=== PATIENT | male | born 1970 | race Caucasian/White ===

== ENCOUNTER 2018-02-22 12:50 | Inpatient (IN) | payer SELFPAY ==
[2018-02-22 12:50] VITALS: BP 184/96; PULSE 116; RESP 18; TEMP 37.7; O2SAT 99; BMI 41.5
[2018-02-22 13:57] LABS: Absolute Lymphocyte Count 1.03 X10^3/ul (0.83-4.51); Absolute Neutrophil Count 11.5 X10^3/uL (2.0-7.7); Basophil# 0.01 X10^3/uL; Basophil% 0.1 % (0-1); Eosinophil# 0.01 X10^3/uL; Eosinophils% 0.1 % (0-5); Hematocrit 50.7 % (40-54); Hemoglobin 16.9 g/dl (13.0-16.5); Lymphocyte # 1.03 X10^3/ul (4.0); Lymphocyte % 7.6 % (19-41); Mean Corp Hgb Conc 33.3 g/gl (32-36); Mean Corpuscular Hgb 27.1 pg (27.0-32.0); Mean Corpuscular Volume 81.3 fL (80-94); Mean Platelet Vol. 10.4 fl (6.2-12.0); Monocyte# 0.89 X10^3/uL; Monocyte% 6.6 % (0-10); Neutrophil # 11.54 X10^3/uL (2.7-7.7); Neutrophil % 85.2 % (47-70); Platelet Count 182 K/mm3 (150-450); RBC Distribution Width CV 13.5 % (11.6-14.6); Red Blood Count 6.24 M/mm3 (4.6-6.2); White Blood Count 13.5 K/mm3 (4.4-11.0)
[2018-02-22 14:02] LABS: POSITIVE COUNT NO; POSITIVE DIFFERENTIAL NO; POSITIVE MORPHOLOGY NO
[2018-02-22 14:06] LABS: Anion Gap 10 (5-15); BUN 11 mg/dL (7-18); Calcium,Total 9.5 mg/dL (8.5-10.1); Chloride 98 mmol/L (98-107); Creatinine, Serum 0.92 mg/dL (0.70-1.30); EST Glomerular Filtration Rate 93 mL/min (>60); Est Glom Filt Rate - Afr Amer 113 mL/min (>60); Estimated Creatinine Clearance 85.42 ml/min; Glucose 288 mg/dL (74-106); Potassium 4.3 mmol/L (3.5-5.1); Sodium Level 135 mmol/L (136-145)
[2018-02-22 14:10] LABS: Lactic Acid 1.7 mmol/L (0.4-2.0)
[2018-02-22] MEDS: 0.9% Normal Saline 1,000 ML 150 ML IV (14:17)
--- NOTE | 2018-02-22 15:12 | ED.VISSUMM ---
- ER Visit Summary Date of Service: 02/22/18 Chief Complaint: [Left leg redness and swelling] History of Present Illness: The patient is a 47 M [presents the emergency department complaint of redness and swelling to his left leg since yesterday. Patient developed a fever. Patient complains of pain up and was groin at times and behind his left knee. Patient has had history of cellulitis that required admission in the past. Patient has a history of coronary artery disease, CHF, diabetes, hypertension, and high cholesterol.] Physical Examination: [HEENT-PERRLA, EOMI. Cranial nerves II through XII grossly intact. TMs clear. Mucous membranes moist. No adenopathy. Cardiovascular-regular rate and rhythm without murmur or ectopy Lungs-clear to auscultation, chest wall stable without crepitus or subcu emphysema Abdomen-normoactive bowel sounds, soft, nontender, no rebound or rigidity, no peritoneal signs. Extremities-intact ?4, normal range of motion, normal pulses. Left leg-patient does have anterior left vang erythema consistent with cellulitis. Extremities warm to the touch. Negative Homans sign. No ropes or cords palpated. Neurovascular intact. Test Results: [CBC with differential obtained showed a white count of 13.5, heme globin 17, hematocrit 51, platelets 182. Chemistries unremarkable. Lactate was 1.7. Glucose was 288. Venous duplex of the left lower extremity was negative for DVT.] Emergency Department Course and Treatment: [She was treated with Unasyn IV.] Treatment Plan: [Admit for IV antibiotics] Disposition: [Admit] Impression: Cellulitis left leg [] This note was generated with IFTTT dictation software. It may contain incorrect words, spelling, and punctuation that were not noted in review of the chart prior to signing ED Disposition - Plan for ED Patient: Chief Complaint: Lower Extremity Injury Referrals: Racheal Dodson [Primary Care Provider] -
[2018-02-22 16:15] VITALS: BMI 41.6
--- NOTE | 2018-02-22 16:21 | PCM.HP.STD ---
<Radha Rasmussen - Last Filed: 02/22/18 16:39> Problem List (1) Type 2 diabetes mellitus Status: Chronic (2) Hypertension Status: Chronic (3) Hyperlipidemia Status: Chronic History of Present Illness Date of Admission: 02/22/18 Chief Complaint: Left lower extremity cellulitis The patient is a 47 year old M who presents to emergency room due to left lower extremity redness, warmth and pain. He states he has had cellulitis in the same location approximately 2 years ago. He states his initial symptoms began approximately a week ago. He notes increase in redness. He has not sought medical attention by primary care physician or urgent care. Was not previously on outpatient oral antibiotics. Denies injury to left lower extremity. Complains of fever, chills. Complains of nausea, no emesis. Area of redness noted left vang area. No open wound or abscess noted. Duplex ultrasound for DVT negative. 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 Patient has a history of noncompliance. He reports he takes his home medications as needed. Pharmacy was called by ER staff to confirm patient's home medications. Pharmacy notes patient has not filled his medications in over a year. Past Medical History Past Medical History (Chronic Problems): Chronic Problems Type 2 diabetes mellitus (Chronic) Hypertension (Chronic) Hyperlipidemia (Chronic) Allergies No Known Allergies Allergy (Verified 02/22/18 12:51) Home Medications: Ambulatory Orders Medication Instructions Recorded Furosemide [Lasix] 20 mg PO DAILY 02/22/18 Lisinopril [Zestril] 10 mg PO DAILY 02/22/18 Metformin HCl 02/22/18 Surgical History: - - Hernia repair Psychiatric History: No pertinent psych hx Smoking Status: Former smoker Alcohol: None Drugs: None - *Family History Maternal History Items: Diabetes, Heart Disease, Stroke Paternal History Items: Diabetes, Heart Disease, Stroke Review of Systems Constitutional: Reports: Chills, Fever, Malaise. Denies: Weight Change HEENT: Denies: Head Aches, Sinus Congestion, Sinus Drainage Cardiovascular: Reports: Edema - Left lower extremity. Denies: Chest Pain, Palpitations Respiratory: Denies: Cough, Shortness of breath at rest, Sputum production Gastrointestinal: Denies: Abdominal Pain, Nausea, Vomiting Genitourinary: Denies: Dysuria Musculoskeletal: Reports: Leg Pain - Left. Denies: Joint Pain, Joint Tenderness Skin: Reports: - - Left lower extremity mid vang erythema and warmth. Neurological: Denies: Numbness, Tingling, Focal weakness Psychiatric: Denies: Anxiety, Depression, Homicidal Ideations, Suicidal Ideations Hematologic/ Lymphatic: Denies: Easy Bruising, Easy Bleeding VTE Information - Inpt Only VTE Present on Admission: No VTE Mechan Device Prophylaxis: None VTE Pharm Prophylaxis ordered?: Yes - Physical Exam General: Alert, Oriented x3, Cooperative, No apparent distress HEENT: Atraumatic, PERRLA, EOMI, Normocephalic Neck: Supple, No JVD, Negative Carotid Bruits Lungs: Clear to auscultation, Normal air movement Cardiovascular: Regular Rhythm, Normal S1, Normal S2, No murmurs, Tachycardic Abdomen: Bowel Sounds Present, Soft, Non Tender, Non-Distended, Obese Extremities: No clubbing, No cyanosis, No edema, Capillary Refill Less than 3 Seconds Skin: - - Moderate sized area of erythema left mid vang. No open wounds or abscess. Musculoskeletal: No Tenderness to Palpation of Joints or Extremities Neurological: Cranial nerves II-XII grossly intact, Neuro grossly intact Psych/Mental Status: Normal Affect, Appropriate Vital Signs Temp Pulse Resp BP Pulse Ox 100 F H 116 H 18 184/96 H 99 02/22/18 12:50 02/22/18 12:50 02/22/18 12:50 02/22/18 12:50 02/22/18 12:50 Weight: 250 lb 3.594 oz Body Mass Index (BMI) 41.6 Assessment/Plan 1. Left lower extremity cellulitis-started on IV Unasyn in ER, continue. Duplex ultrasound left lower extremity negative for DVT. Tylenol PRN for fever. PRN pain regimen. 2. Hypertension-systolic blood pressure greater than 180 on admission. Patient does not take prescribed home regimen. Continue lisinopril regimen. As needed hydralazine. 3. Type diabetes mellitus-previously on metformin regimen which patient has not been taking. Check hemoglobin A1c. Accu-Cheks before meals at bedtime with sliding scale insulin. 4. Hyperlipidemia-not on statin. Check FLP in the morning. 5. History of CVA-residual subjective left-sided weakness. Left peripheral vision loss. Not on aspirin or statin. 6. Chronic systolic CHF-echo in 2012 showed an EF of 40%, mild to moderate global hypokinesis of the left ventricle, severe left ventricular hypertrophy. Patient states he takes his home Lasix regimen as needed. Continue home lisinopril regimen. 7. CAD- Patient reports he is followed with Dr. iRchey in the past. No office visits in our records. Not on aspirin or statin. Check FLP as noted above. 8. Obesity-encourage diet lifestyle modifications. Nutrition consult. DVT prophylaxis-Lovenox subcu. This patient was seen by JAGUAR Fish under the supervision of Dr. Hdez. <Mikael Hdez - Last Filed: 02/22/18 17:04> History of Present Illness The patient is a 47 year old M [] Past Medical History Allergies No Known Allergies Allergy (Verified 02/22/18 12:51) - Physical Exam Vital Signs Temp Pulse Resp BP Pulse Ox 98.4 F 104 H 18 163/101 H 94 02/22/18 16:26 02/22/18 16:26 02/22/18 16:26 02/22/18 16:26 02/22/18 16:26 Oxygen Delivery Method Room Air Weight: 250 lb 3.594 oz Body Mass Index (BMI) 41.6 POC Glucose 02/22/18 16:48 POC Glucose 246 H Assessment/Plan Addendum: Dr. Hdez I personally examined the patient and reviewed the chart. I agree with the above. Kannan Hurst is a 47-year-old male with past medical history significant for hypertension, type 2 diabetes, hyperlipidemia, chronic systolic CHF. Presents with a 1 day history of left lower extremity redness. He has had cellulitis issues in the past. General: Alert, Oriented x3, Cooperative, No apparent distress HEENT: Atraumatic, EOMI, Normocephalic Oral: Moist Mucosa Neck: Supple, No JVD Lungs: Clear to auscultation, Normal air movement, No rhonchi, No wheeze, No rales Cardiovascular: Regular rate, Regular Rhythm, Normal S1, Normal S2, No murmurs Abdomen: Soft, Non Tender, Non-Distended, No Hepato-splenomegaly Extremities: No edema, Capillary Refill Less than 3 Seconds Skin: area of redness on erythema on his left anterior vang Psych/Mental Status: Normal Affect, Appropriate 1. Cellutitis - US in the Er was negative for DVT - Will continue with unasyn IV and possibly transition to augmentin if improvement - Given his h/o CHF will do gentle hydration and monitor his fluid status 2. DM2 - On metformin at home - SSI here 3. HTN/HLD/chronic systolic CHF - If no improvement in his HTN would start on corge BID for his HTN and CHF - Given his systolic CHF, and DM would benefit from a statin if his lipids are abnormal - when his pharmacy was called to obtain an updated med list, they stated he had not taken any medications for a year. - Will clarify this with the patient Code Visit Inpatient E&M: 08866 Init Hosp L3
[2018-02-22 16:26] VITALS: BP 163/101; PULSE 104; RESP 18; TEMP 36.9; O2SAT 94
[2018-02-22 16:51] LABS: Bedside Glucose 246 mg/dL (70-110)
[2018-02-22] MEDS: 0.9% Normal Saline 1,000 ML 100 ML IV (17:09)
[2018-02-22] MEDS: Insulin Lispro 100 UNIT/ML INSULN.PEN SQ ×2 (17:09→23:18)
[2018-02-22] MEDS: Lisinopril 10 MG Tablet PO (17:09)
[2018-02-22] MEDS: Acetaminophen 500 MG Tablet PO ×2 (17:09→23:18)
[2018-02-22 17:16] LABS: Hemoglobin A1c 10.8 % (4.2-6.3)
--- NOTE | 2018-02-22 17:22 | NURSING ---
female at bedside, states she is pt spouse. inquired as to if she had a med list or pt medication bottles from home to verify medications- she states she is unable to provide any insight as to what medications he may be taking.
--- NOTE | 2018-02-22 18:59 | NURSING ---
CONTINUE TO AWAIT LABATOLOL
[2018-02-22 19:50] VITALS: O2SAT 93
[2018-02-22 22:30] VITALS: BP 161/100; PULSE 99; RESP 16; TEMP 38.4; O2SAT 95
[2018-02-22 23:31] LABS: Bedside Glucose 276 mg/dL (70-110)
[2018-02-23] VITALS (7 sets, daily range): BP systolic 126–161; BP diastolic 75–97; PULSE 78–98; RESP 16–18; TEMP 36.7–37.4; O2SAT 94–97
[2018-02-23] MEDS: 0.9% Normal Saline 1,000 ML 100 ML IV (05:20)
[2018-02-23 06:14] LABS: Absolute Lymphocyte Count 1.34 X10^3/ul (0.83-4.51); Absolute Neutrophil Count 7.8 X10^3/uL (2.0-7.7); Basophil# 0.02 X10^3/uL; Basophil% 0.2 % (0-1); Hematocrit 44.9 % (40-54); Hemoglobin 14.8 g/dl (13.0-16.5); Lymphocyte # 1.34 X10^3/ul (4.0); Lymphocyte % 13.2 % (19-41); Mean Corpuscular Hgb 27.6 pg (27.0-32.0); Mean Corpuscular Volume 83.6 fL (80-94); Mean Platelet Vol. 9.8 fl (6.2-12.0); Monocyte# 0.99 X10^3/uL; Monocyte% 9.7 % (0-10); Neutrophil # 7.78 X10^3/uL (2.7-7.7); Neutrophil % 76.4 % (47-70); Platelet Count 132 K/mm3 (150-450); RBC Distribution Width CV 13.7 % (11.6-14.6); RBC Distribution Width SD 41.8 fl (35.1-43.9); Red Blood Count 5.37 M/mm3 (4.6-6.2); White Blood Count 10.2 K/mm3 (4.4-11.0)
[2018-02-23 06:16] LABS: POSITIVE COUNT NO; POSITIVE DIFFERENTIAL NO; POSITIVE MORPHOLOGY NO
[2018-02-23 06:33] LABS: Anion Gap 9 (5-15); BUN 9 mg/dL (7-18); BUN/Creat Ratio 11.6 RATIO (10-20); Calcium,Total 8.3 mg/dL (8.5-10.1); Chloride 102 mmol/L (98-107); Cholesterol 188 mg/dL (200); Creatinine, Serum 0.78 mg/dL (0.70-1.30); EST Glomerular Filtration Rate 114 mL/min (>60); Est Glom Filt Rate - Afr Amer 137 mL/min (>60); Estimated Creatinine Clearance 100.75 ml/min; Glucose 216 mg/dL (74-106); High Density Lipoprotein 33 mg/dL; Sodium Level 136 mmol/L (136-145); Triglycerides 220 mg/dL; Very Low Density Lipoprotein 44 mg/dL (5-40)
[2018-02-23] MEDS: Insulin Lispro 100 UNIT/ML INSULN.PEN SQ ×4 (06:56→22:34)
[2018-02-23 07:10] LABS: Bedside Glucose 252 mg/dL (70-110)
[2018-02-23] MEDS: Enoxaparin 40 MG/0.4 ML Syringe SC (09:40)
[2018-02-23] MEDS: Lisinopril 10 MG Tablet PO (09:40)
--- NOTE | 2018-02-23 10:05 | PCM.PN.HOSP ---
Patient Problems: Active and Suspected Problems Cellulitis (Acute) Subjective: Increasing erythema of his left lower extremity and extending beyond the lines of demarcation. Stated that he had a history of cellulitis about 2 years ago in the same region. Patient is concerned about his blood sugars be in the 270s but states that he gave up on his diabetes about a year ago and has not checked it nor taken any medications during that time. He expresses interest in resuming medications but does not have insurance. Vitals/I&O's: Vital Signs Temp Pulse Resp BP Pulse Ox 36.7 C 93 18 145/89 H 96 02/23/18 09:30 02/23/18 09:30 02/23/18 09:30 02/23/18 09:30 02/23/18 09:30 Oxygen Delivery Method Room Air Weight: 113.5 kg Body Mass Index (BMI) 41.6 Intake and Output for Last 24 Hours 02/21/18 02/22/18 02/23/18 23:59 23:59 23:59 Intake Total 684 / 684 909 / 909 Balance 684 / 684 909 / 909 General: Alert, No apparent distress HEENT: Atraumatic, Normocephalic Extremities: No edema, No Calf Tenderness Skin: - - Macular erythema of the anterior left vang that has extended beyond the multiple lines of demarcation. Patient also does have a patch of erythema on the medial aspect of his knee that was not marked out previously. Musculoskeletal: No Tenderness to Palpation of Joints or Extremities, No Muscle Wasting Neurological: Muscle tone normal, Coordination normal Psych/Mental Status: Normal Affect, Appropriate Laboratory Results 02/22/18 16:48: POC Glucose 246 H 02/22/18 23:11: POC Glucose 276 H 02/23/18 06:00: WBC 10.2, RBC 5.37, Hgb 14.8, Hct 44.9, MCV 83.6, MCH 27.6, MCHC 33.0, RDW 13.7, RDW Differential 41.8, Plt Count 132 L, MPV 9.8, Immature Gran % (Auto) 0.500, Neut % (Auto) 76.4 H, Lymph % (Auto) 13.2 L, Coleman % (Auto) 9.7, Eos % (Auto) 0.0, Baso % (Auto) 0.2, Absolute Neuts (auto) 7.8 H, Absolute Lymphs (auto) 1.34, Total Counted Not Reportable 02/23/18 06:00: Sodium 136, Potassium 4.0, Chloride 102, Carbon Dioxide 25.0, Anion Gap 9, BUN 9, Creatinine 0.78, Estim Creat Clear Calc 100.75, Est GFR (MDRD) Af Amer 137, Est GFR (MDRD) Non-Af 114, BUN/Creatinine Ratio 11.6, Glucose 216 H, Calcium 8.3 L, Triglycerides 220 H, Cholesterol 188, LDL Cholesterol 111, VLDL Cholesterol 44 H, HDL Cholesterol 33 L 02/23/18 06:55: POC Glucose 252 H Current Medications Acetaminophen (Tylenol) 500 mg PO Q4H PRN PRN PRN Reason: FEVER Last Admin: 02/22/18 23:18 Dose: 500 mg Dextrose (D50w Syringe) 0 gm IV X1 PRN; Protocol PRN Reason: Hypoglycemia Enoxaparin Sodium (Lovenox) 40 mg SC DAILY@1000 KATHY Last Admin: 02/23/18 09:40 Dose: 40 mg Glucagon () 1 mg IM .X1 PRN PRN Reason: Hypoglycemia Sodium Chloride () 1,000 mls @ 100 mls/hr IV .Q10H [facility] Last Admin: 02/23/18 05:20 Dose: 100 mls/hr Ampicillin Sodium/Sulbactam (Sodium 3 gm/ Sodium Chloride) 112 mls @ 150 mls/hr IV TID [facility] Last Admin: 02/23/18 06:56 Dose: 150 mls/hr Sodium Chloride () 250 mls @ 15 mls/hr IV .[id number] PRN PRN Reason: SALINE FLUSH Insulin Human Lispro (Humalog Kwikpen (Bkc)) 0 unit SQ ACHS KATHY PRN Reason: Protocol Last Admin: 02/23/18 06:56 Dose: 6 units Labetalol HCl (Trandate) 10 mg IV Q4H PRN PRN PRN Reason: BLOOD PRESSURE Last Admin: 02/22/18 23:23 Dose: 10 mg Lisinopril (Zestril) 10 mg PO DAILY [facility] Last Admin: 02/23/18 09:40 Dose: 10 mg Magnesium Hydroxide (Milk Of Magnesia) 30 ml PO DAILY PRN PRN PRN Reason: Constipation Sodium Chloride () 5 - 30 ml IV UD PRN PRN Reason: SALINE FLUSH Medical Necessity - Tobacco Use Smoking Status: Former smoker Assessment/Plan All Active Problems Cellulitis (Acute) 1. Left lower extremity cellulitis Extended beyond the lines of demarcation which is suggesting to me that this is a failure of the Unasyn and will start patient on vancomycin. The concern is for an MRSA type of cellulitis. Plan is to monitor patient overnight and if he continues to do well then would anticipate patient being able to be discharged on Bactrim. 2. Diabetes mellitus type 2 Will start patient on Metformin 500 mg twice daily Told the patient that he would probably likely need to be on insulin but given his lack of insurance at this time that that may not be a viable option. So patient will be on metformin will do sliding scale here. Advised patient about diet and avoiding ready-made foods and change of lifestyle overall. We will have the patient discussed with nutrition about further dietary advice. But informed patient that his blood sugars may be more elevated in light infection but my suspicion is that they have been chronically elevated for some time. 3. Hypertension lisinopril 10 mg daily 4. DVT prophylaxis with Lovenox Greater than 35 minutes of which greater than 50% of time was discussed the patient but his cellulitis, diabetes and diet. Code Visit Inpatient E&M: 33769 Subs Hosp L3
--- NOTE | 2018-02-23 10:56 | CASEMGMT ---
Social Work Note Pt is listed as self-pay. SW placed a call to [facility] to determine if [facility] will see pt for self-pay status. Jazmín Fajardo ORDNANCE ENGINEERING TECHNICIAN, [employer] SUPERVISOR
--- NOTE | 2018-02-23 11:14 | PCM.RX.CS ---
Consult Pharmacy has been consulted to manage selected antiobiotic: Vancomycin Type of Consult: New start Suspected Infection: Skin/Soft tissue Labs: Sodium 136 mmol/L (136-145) 02/23/18 06:00 Potassium 4.0 mmol/L (3.5-5.1) 02/23/18 06:00 Chloride 102 mmol/L (98-107) 02/23/18 06:00 Carbon Dioxide 25.0 mmol/L (21.0-32.0) 02/23/18 06:00 Anion Gap 9 (5-15) 02/23/18 06:00 BUN 9 mg/dL (7-18) 02/23/18 06:00 Creatinine 0.78 mg/dL (0.70-1.30) 02/23/18 06:00 Est GFR (MDRD) Af Amer 137 mL/min (>60) 02/23/18 06:00 Est GFR (MDRD) Non-Af 114 mL/min (>60) 02/23/18 06:00 BUN/Creatinine Ratio 11.6 RATIO (10-20) 02/23/18 06:00 Glucose 216 mg/dL (74-106) H 02/23/18 06:00 Weight used for dosin kg Estimated Creatinine Clearance: 98 ml/min Goal Trough: 15-20 mcg/mL Pharmacy Plan for Drug Dosing: Initial dose 1750mg IV x1, continue with 1250mg IV q8h per protocol. Trough prior to 4th dose. Pharmacy Service will continue to monitor and adjust dosing as required. Follow-Up Labs: Trough Vancomycin - 02/24 @ 1330
--- NOTE | 2018-02-23 11:20 | CASEMGMT ---
RN CEE Face to Face with patient for initial transition planning/care coordination assessment. RN CM introduced self and role at [facility]. Patient sitting in chair, alert and oriented. Patient willing to participate in assessment and is able to answer all questions appropriately. Care providers, pharmacy, and demographics verified. Patient lives with family in 1 story home. Patient denies need for DME at this time. Patient wishes to discharge home, denies need for home health at this time. Patient states he has no further needs or concerns at this time. CM to follow for discharge planning needs that may arise. Disposition Plan: Patient to discharge home with family support and follow-up plans in place.
[2018-02-23 11:41] LABS: Hemoglobin A1c 11.1 % (4.2-6.3)
[2018-02-23 12:45] LABS: Bedside Glucose 285 mg/dL (70-110)
[2018-02-23 17:20] LABS: Bedside Glucose 221 mg/dL (70-110)
[2018-02-23] MEDS: Acetaminophen 500 MG Tablet PO (17:23)
[2018-02-23] MEDS: 0.9% NaCl Peripheral Flush Adult/Peds IV (22:36)
[2018-02-23 22:40] LABS: Bedside Glucose 191 mg/dL (70-110)
[2018-02-24 03:14] VITALS: BP 152/90; PULSE 89; RESP 16; TEMP 36.8; O2SAT 100
[2018-02-24] MEDS: Acetaminophen 500 MG Tablet PO (05:35)
[2018-02-24 06:19] LABS: Absolute Lymphocyte Count 1.69 X10^3/ul (0.83-4.51); Absolute Neutrophil Count 5.2 X10^3/uL (2.0-7.7); Basophil# 0.02 X10^3/uL; Basophil% 0.3 % (0-1); Eosinophil# 0.04 X10^3/uL; Eosinophils% 0.5 % (0-5); Hematocrit 45.6 % (40-54); Hemoglobin 14.9 g/dl (13.0-16.5); Lymphocyte # 1.69 X10^3/ul (4.0); Lymphocyte % 21.8 % (19-41); Mean Corp Hgb Conc 32.7 g/gl (32-36); Mean Corpuscular Hgb 27.6 pg (27.0-32.0); Mean Corpuscular Volume 84.4 fL (80-94); Monocyte# 0.82 X10^3/uL; Monocyte% 10.6 % (0-10); Neutrophil # 5.15 X10^3/uL (2.7-7.7); Neutrophil % 66.2 % (47-70); Platelet Count 136 K/mm3 (150-450); RBC Distribution Width CV 13.7 % (11.6-14.6); White Blood Count 7.8 K/mm3 (4.4-11.0)
[2018-02-24 06:29] LABS: POSITIVE COUNT NO; POSITIVE DIFFERENTIAL NO; POSITIVE MORPHOLOGY NO
[2018-02-24 06:37] LABS: Anion Gap 8 (5-15); BUN 8 mg/dL (7-18); BUN/Creat Ratio 11.6 RATIO (10-20); Calcium,Total 8.6 mg/dL (8.5-10.1); Chloride 104 mmol/L (98-107); Creatinine, Serum 0.69 mg/dL (0.70-1.30); EST Glomerular Filtration Rate 130 mL/min (>60); Est Glom Filt Rate - Afr Amer 157 mL/min (>60); Estimated Creatinine Clearance 113.89 ml/min; Glucose 200 mg/dL (74-106); Potassium 4.1 mmol/L (3.5-5.1); Sodium Level 137 mmol/L (136-145)
[2018-02-24] MEDS: Insulin Lispro 100 UNIT/ML INSULN.PEN SQ ×3 (06:50→15:46)
[2018-02-24 06:56] LABS: Bedside Glucose 208 mg/dL (70-110)
[2018-02-24] MEDS: Lisinopril 10 MG Tablet PO (07:41)
[2018-02-24 09:15] VITALS: BP 150/101; PULSE 83; RESP 16; TEMP 36.8; O2SAT 95
--- NOTE | 2018-02-24 10:21 | PCM.DC ---
- Discharge Diagnoses Current Active Problems: Current Active and Chronic Problems Cellulitis (Acute) You will use the following diet at home:: Calorie/Carbohydrate Controlled (specify 1200, 1400, etc) - 1800 kcal/day Your food should be the consistency of: Regular Your liquids should be the consistency of: Regular/Thin Discharge Activity: Return to Normal Activity Call your doctor if your incision/area has: Increased Pain/ Swelling, Increased Redness Call your doctor if you observe: Fever of 101 or Higher Instructions: What Is Type 2 Diabetes?, How to Check Your Blood Sugar, Eating Out When You Have Diabetes, Diabetes: Getting Started with Exercise, Understanding Type 2 Diabetes Additional Instructions: check blood sugar daily. Alternate AM (before breakfast) and PM (before bed). Keep record of the blood sugar and times. Provide to primary care physician. Allergies/Adverse Reactions: Allergies No Known Allergies Allergy (Verified 02/22/18 12:51) Medications to take at Discharge Lisinopril [Zestril] 10 mg PO DAILY #30 tab 02/24/18 Metformin HCl [Glucophage] 500 mg PO BIDCM #60 tab 02/24/18 Smz/Tmp Ds [Bactrim Ds] 1 tab PO BID #18 tab 02/24/18 The following prescriptions were given: Lisinopril [Zestril] 10 mg PO DAILY #30 tab Metformin HCl [Glucophage] 500 mg PO BIDCM #60 tab Smz/Tmp Ds [Bactrim Ds] 1 tab PO BID #18 tab Orders to be completed after discharge: Glucometer Location: None Selected Primary Care Physician: Racheal Dodson [Primary Care Provider] - Within 2 Weeks Test Results: Test results from this visit will be discussed in further detail at your follow-up appointment, if applicable. Proposed Discharge Date: 02/24/18
--- NOTE | 2018-02-24 10:25 | PCM.DC.SUM ---
Discharge Date and Diagnosis - Problem List Patient Problems: Active and Suspected Problems Cellulitis (Acute) Date of Admission: 02/22/18 Date of Discharge: 02/24/18 - Primary Discharge Diagnosis Active and Suspected Problems Cellulitis (Acute) - Secondary Discharge Diagnosis Chronic Problems Type 2 diabetes mellitus (Chronic) Hypertension (Chronic) Hyperlipidemia (Chronic) Hospital Course and Treatment Operations: None Procedures: None Summary of Care Provided: The patient is a 47 year old M presents with left lower extremity cellulitis. Patient was initially started on Unasyn but despite that the cellulitis extended beyond the previous marked lines of demarcation. Patient was then switched over to vancomycin. Today, patient's leg does look better. Still red but has withdrawn from the lines of demarcation. Patient will be discharged with Bactrim. Patient advised to notify his doctor or come back to emergency room if the cellulitis is getting worse. Patient has been withdrawn from the medical community for the past year. Patient just says she just gave up on taking medications and checking his blood sugar. Patient's blood sugars have been in the 200s since he has been here. Patient was concerned about that but is explained to him the patient's blood sugars have likely been elevated perhaps in the 200s during this time. It may be slightly elevated beyond that given his cellulitis but from more or less has been in 200s. Patient will be started on metformin 500 mg twice daily. Patient will be given prescription for glucometer and testing strips and lancets. Patient advised to check his blood sugar in the morning and then the evening and just alternate days on those checks and keep a record of those. Additionally, patient was hypertensive as well. Patient has not been taking any medications including for blood pressure. Patient's been resumed back on lisinopril 10 mg daily. Patient followed his primary care doctor to see if further adjustments need to be made to his antihypertensive treatment. It is expressed that the patient on several occasions that he needs to follow a strict diet and to avoid processed foods. Patient encouraged to exercise but is also trying to manage his expectations to not expect anything right away and that this is a long lifelong process the patient has to engage in. [] Discharge Diet: 1800 Calorie Control Diet Discharge Activity: Return to Normal Activity Call your doctor if your incision/area has: Increased Pain/ Swelling, Increased Redness Call your doctor if you observe: Fever of 101 or Higher Home Medications: Medications to take at Discharge Lisinopril [Zestril] 10 mg PO DAILY #30 tab 02/24/18 Metformin HCl [Glucophage] 500 mg PO BIDCM #60 tab 02/24/18 Smz/Tmp Ds [Bactrim Ds] 1 tab PO BID #18 tab 02/24/18 Following Prescrptions Were Given to Patient: Lisinopril [Zestril] 10 mg PO DAILY #30 tab Metformin HCl [Glucophage] 500 mg PO BIDCM #60 tab Smz/Tmp Ds [Bactrim Ds] 1 tab PO BID #18 tab Other Amb Orders: Glucometer Location: None Selected Primary Care Physician: Racheal Dodson [Primary Care Provider] - Within 2 Weeks Patient Instructions: What Is Type 2 Diabetes?, How to Check Your Blood Sugar, Eating Out When You Have Diabetes, Diabetes: Getting Started with Exercise, Understanding Type 2 Diabetes Disposition: Home Minutes spent on discharge:: 32 Patient Condition:: Good Medical Necessity - Tobacco Use Smoking Status: Former smoker Meaningful Use Info Meaningful Use Diagnoses (Choose all that apply): None applicable Code Visit Inpatient E&M: 78108 Disch Hosp
[2018-02-24 12:00] LABS: Bedside Glucose 304 mg/dL (70-110)
[2018-02-24 14:24] LABS: Vancomycin, Trough Level 10.6 ug/mL (5.0-15.0)
[2018-02-24] MEDS: 0.9% NaCl Peripheral Flush Adult/Peds IV (15:00)
[2018-02-24 15:15] VITALS: BP 172/103; PULSE 87; RESP 16; TEMP 36.8; O2SAT 96
[2018-02-24 15:55] LABS: Bedside Glucose 258 mg/dL (70-110)
[2018-02-24 17:34] VITALS: BP 135/78; PULSE 88; RESP 18; TEMP 36.7; O2SAT 98
== END 2018-02-24 17:33 | disposition home or self-care (01) | DRG 603 ==
LOC: ED 13:16 → MS3 15:48
PROVIDERS: Nurse Practitioner Family; Admitting Provider Family Medicine; Emergency Provider Emergency Medicine; Family Provider Family Medicine; PCP Family Medicine
DX: L03.116 Cellulitis of left lower limb (principal); I69.354 Hemiplegia and hemiparesis following cerebral infarction affecting left non-dominant side; I50.22 Chronic systolic (congestive) heart failure; Z68.41 Body mass index [BMI] 40.0-44.9, adult; I69.398 Other sequelae of cerebral infarction; H54.7 Unspecified visual loss; Z87.891 Personal history of nicotine dependence; I11.0 Hypertensive heart disease with heart failure; E78.5 Hyperlipidemia, unspecified; I25.2 Old myocardial infarction; E11.9 Type 2 diabetes mellitus without complications; E66.9 Obesity, unspecified
CPT/HCPCS: 36415; 80048; 80061; 80202; 82962; 83036; 83605; 85025; 87040; 93971; 97802; 99281; J7030; J7040; J7050; A4216; J0295

== ENCOUNTER → 2020-12-31 10:10 | Outpatient (CLI) | payer SELFPAY ==
[2020-12-16 08:13] VITALS: BMI 41.6
--- NOTE | 2020-12-31 10:27 | MRI_ITS ---
STUDY: MRA OF THE HEAD WITHOUT CONTRAST REASON FOR EXAM: Male, 50 years old. cerebral artery occlusion, TBI TECHNIQUE: 3-D [id number] (TOF) imaging was performed with MIPs. The study was performed unenhanced. COMPARISON: None. FINDINGS: Normal bilateral petrous carotid arteries. Normal right cavernous carotid artery with a normal supraclinoid bifurcation. Normal left cavernous carotid artery with a normal supraclinoid bifurcation. Normal right A1 segments of the anterior cerebral artery. Normal left A1 segments of the anterior cerebral artery. Anterior communicating artery not visualized consistent with normal variant.). Normal bilateral A2 segments of the anterior cerebral arteries. Normal right M1 and apparent occlusion of one of the distal M2 segments of the middle cerebral arteries, with a normal M1 bifurcation. Normal left M1 and M2 segments of the middle cerebral arteries, with a normal M1 bifurcation. Right posterior communicating artery not visualized consistent with normal variant.). Normal left posterior communicating artery (PCOM). Normal bilateral vertebral arteries. Normal basilar artery with a normal basilar bifurcation. The visualized bilateral superior cerebellar (SCA) arteries are normal. Normal bilateral P1, P2 and visualized P3 segments of the posterior cerebral arteries. There is no demonstrated aneurysm of the [place]. There is no major vessel occlusion or hemodynamically significant stenosis. There is no demonstrated abnormality of the visualized brain. 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 However the main sylvian branch and distal vessels are patent due to filling by other branches CTA or catheter angiography may be useful for more definitive evaluation Electronically Signed: Kannan Valencia MD at 16:39 EDT , Service support ,
--- NOTE | 2020-12-31 10:27 | MRI_ITS ---
STUDY: MRI BRAIN WITH AND WITHOUT CONTRAST REASON FOR EXAM: Male, 50 years old. TBI, cerebral artery occlusion TECHNIQUE: Standardized multiplanar fat and water weighted pulse sequences were obtained. 20ml Dotarem via IV was administered for the contrast portion of the examination. COMPARISON: None. FINDINGS: Normal size of the ventricles and extra-axial spaces for the patient''s age. Normal white matter tracts of the supratentorial brain. Normal bilateral basal ganglia. Normal thalami. There is no extra-axial fluid accumulation. Normal flow voids within the major intracranial circulation suggesting patency by spin echo criteria. Normal venous enhancement. There is no enhancing intra-axial or extra-axial abnormality. Normal sella turcica, pituitary gland, infundibular stalk, optic chiasm and hypothalamus. Normal tectal plate and pineal gland. Normal midbrain, jelani and medulla. Normal cerebellum. Normal basal cisterns. Normal bilateral temporal bones. Normal bilateral internal auditory canals. No demonstrated orbital abnormality, within the constraints of a routine brain study. Normal visualized paranasal sinuses. Normal calvarium and skull base. Normal visualized soft tissue structures. Normal visualized upper cervical spine. MRI/Brain W/WO Contrast IMPRESSION: Normal unenhanced and enhanced MRI of the brain. Electronically Signed: Kannan Valencia MD at 16:34 EDT , Service support ,
== END ==
PROVIDERS: PCP Internal Medicine; Referring Provider Psychiatry & Neurology Neurology; Visit Provider Psychiatry & Neurology Neurology
DX: S06.9X9A Unspecified intracranial injury with loss of consciousness of unspecified duration, initial encounter (principal); E78.5 Hyperlipidemia, unspecified; I10 Essential (primary) hypertension
CPT/HCPCS: 70544; 70553; A9575

== ENCOUNTER → 2021-01-10 06:10 | Outpatient (CLI) | payer SELFPAY ==
[2020-12-16 08:13] VITALS: BMI 41.6
--- NOTE | 2021-01-10 08:03 | TELEMED_ITS ---
[facility] has confirmed receipt of a request for visit. This document confirms receipt of the order initiating the consult. To find the results of the consultation, please view the patient's reports for the scanned Telemed Consult.
== END ==
PROVIDERS: PCP Internal Medicine; Referring Provider Psychiatry & Neurology Neurology; Visit Provider Psychiatry & Neurology Neurology
DX: I66.9 Occlusion and stenosis of unspecified cerebral artery (principal); I10 Essential (primary) hypertension; E78.5 Hyperlipidemia, unspecified; Z87.820 Personal history of traumatic brain injury
CPT/HCPCS: 95819

== ENCOUNTER → 2021-03-11 14:21 | Outpatient (CLI) | payer SELFPAY ==
[2021-03-11 15:54] LABS: Microalbumin:Creatinine Ratio 602.6 mg/g CRE (<30 mg/g CRE)
[2021-03-11 16:15] LABS: AST(SGOT) 27 U/L (15-37); Alanine Aminotransfer ALT/SGPT 54 U/L (16-61); Albumin, Serum 3.2 g/dL (3.2-5.0); Alkaline Phosphatase 124 U/L (45-117); Bilirubin, Direct 0.07 mg/dL (0.00-0.30); Cholesterol 235 mg/dL (200); Globulin 3.9 g/dL (2.2-4.2); High Density Lipoprotein 30 mg/dL; Protein, Total 7.1 g/dL (6.4-8.2); Thyroid Stim Hormone (TSH) 3.28 uIU/mL (0.358-3.74); Triglycerides 455 mg/dL
== END ==
LOC: BIMLAB 14:22
PROVIDERS: Nurse Practitioner Family; PCP Internal Medicine; Referring Provider Psychiatry & Neurology Neurology; Visit Provider Psychiatry & Neurology Neurology
DX: I10 Essential (primary) hypertension (principal); E78.5 Hyperlipidemia, unspecified; E11.9 Type 2 diabetes mellitus without complications
CPT/HCPCS: 36415; 80061; 80076; 82043; 82570; 84443

== ENCOUNTER 2021-04-22 13:44 | Emergency (ER) | payer MEDICARE, SELFPAY ==
[2021-04-22 13:45] VITALS: BP 145/82; PULSE 101; RESP 20; TEMP 37.6; O2SAT 95; BMI 40.7
[2021-04-22 13:59] VITALS: O2SAT 96
--- NOTE | 2021-04-22 14:35 | RAD_ITS ---
STUDY: X-RAY CHEST REASON FOR EXAM: Male, 50 years old. covid ?? TECHNIQUE: Single AP portable view of the chest. COMPARISON: Comparison is made with prior study 04/23/2012. FINDINGS: EKG electrodes are seen. Patchy peripheral infiltrates in the right lung. Focal infiltrate in the left lower lobe. Findings suggestive of pneumonitis associated with Covid.There is no demonstrated pleural abnormality. Normal size heart. Normal mediastinum and sheba. Normal visualized pulmonary arteries. Normal visualized aortic arch and descending thoracic aorta. There are diffuse degenerative changes of the visualized thoracic spine. Normal visualized ribs, clavicles, and shoulders. There is no demonstrated abnormality of the visualized soft tissue structures of the upper abdomen. RAD/Chest 1 View (Portable) IMPRESSION: Peripheral base infiltrates in the right hemithorax as well as focal infiltrate in the left lower lobe. This is suggestive of Covid pneumonitis. Electronically Signed: Cedrick Amor MD at 15:15 EDT , Service support ,
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
[2021-04-22 14:53] VITALS: O2SAT 96
[2021-04-22] MEDS: 0.9% Normal Saline 1,000 ML 1000 ML IV (14:54)
[2021-04-22 15:01] LABS: Absolute Lymphocyte Count 1.02 X10^3/uL (0.83-4.51); Absolute Neutrophil Count 5.4 X10^3/uL (2.0-7.7); Basophil# 0.02 X10^3/uL; Basophil% 0.3 % (0-1); Eosinophil# 0.05 X10^3/uL; Eosinophils% 0.7 % (0-5); Hematocrit 36.6 % (40-54); Hemoglobin 12.2 g/dL (13.0-16.5); Lymphocyte # 1.02 X10^3/ul (0.83-4.51); Lymphocyte % 14.3 % (19-41); Mean Corp Hgb Conc 33.3 g/dL (32-36); Mean Corpuscular Hgb 27.7 pg (27.0-32.0); Mean Corpuscular Volume 83.2 fL (80-94); Mean Platelet Vol. 9.5 fl (6.2-12.0); Monocyte# 0.64 X10^3/uL; NRBC Flagged by Analyzer 0 % (0-5); Neutrophil # 5.36 X10^3/uL (2.7-7.7); Neutrophil % 75.1 % (47-70); POSITIVE MORPHOLOGY YES; Platelet Count 291 K/mm3 (150-450); RBC Distribution Width CV 13.1 % (11.6-14.6); RBC Distribution Width SD 39.6 fl (35.1-43.9); White Blood Count 7.1 K/mm3 (4.4-11.0)
[2021-04-22 15:02] LABS: Differential Indicated SCAN CRITERIA MET
[2021-04-22 15:15] LABS: Anion Gap 5 (5-15); BUN 21 mg/dL (7-18); BUN/Creat Ratio 19.4 RATIO (10-20); Calcium,Total 8.8 mg/dL (8.5-10.1); Chloride 103 mmol/L (98-107); Creatinine, Serum 1.08 mg/dL (0.70-1.30); EST Glomerular Filtration Rate 76 mL/min (>60); Est Glom Filt Rate - Afr Amer 93 mL/min (>60); Estimated Creatinine Clearance 65.12 ml/min; Glucose 207 mg/dL (74-106); Potassium 3.5 mmol/L (3.5-5.1); Sodium Level 134 mmol/L (136-145)
[2021-04-22] MEDS: dexAMETHasone 20 MG/5 ML Vial IV (15:17)
[2021-04-22 15:48] LABS: Differential Comment SCANNED
[2021-04-22 16:00] VITALS: PULSE 93; RESP 22; O2SAT 97
[2021-04-22 17:02] VITALS: BP 145/98; PULSE 91; RESP 18; O2SAT 97
== END 2021-04-22 17:02 | disposition home or self-care (01) ==
PROVIDERS: Emergency Provider Emergency Medicine; PCP Internal Medicine
DX: U07.1 COVID-19 (principal); E11.22 Type 2 diabetes mellitus with diabetic chronic kidney disease; N18.9 Chronic kidney disease, unspecified; I50.9 Heart failure, unspecified; I25.2 Old myocardial infarction; F17.210 Nicotine dependence, cigarettes, uncomplicated; E66.9 Obesity, unspecified; Z68.41 Body mass index [BMI] 40.0-44.9, adult; Z79.82 Long term (current) use of aspirin; Z79.4 Long term (current) use of insulin; Z79.84 Long term (current) use of oral hypoglycemic drugs; Z79.899 Other long term (current) drug therapy; Z86.73 Personal history of transient ischemic attack (TIA), and cerebral infarction without residual deficits
CPT/HCPCS: 71045; 80048; 85025; 87426; 87635; 96361; 96374; 99282; J7030; J7040; U0005; A4216; U0003

== ENCOUNTER → 2025-06-02 | Outpatient (CLI) | payer MEDICARE, SELFPAY ==
--- OUTSIDE RECORDS SUMMARY | 2025-06-02 11:21 | XMS RPT_ITS | CCD ---
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 (OTNWPH) CABRERA SOTELO ([id number]) 1970 M Date Time Provider Department 09/20/24 1:45 PM RIVKA NARANJO [facility] Date Time Provider Department Center 09/20/2024 1:45 [id number] Reason for Visit: Occupational Therapy [504] Primary Visit Diagnosis:Left basal ganglia embolic stroke (HCC) [I63.9] Other Visit Diagnoses:Weakness [R53.1] Lack of coordination [R27.9] Right shoulder pain, unspecified chronicity [M25.511] Subluxation of right shoulder joint, subsequent encounter [S43.001D] Allergies As of Date: 09/20/2024 (No Known Allergies) Date Reviewed: 05/25/2024 Reviewed by: Dolores Rendon MA - Fully Assessed Prescriptions as of 09/20/2024 - rosuvastatin (CRESTOR) 40 mg tablet Take 40 mg by mouth once daily. - MULTIVITAMIN ORAL Take by mouth. - docosahexaenoic acid/epa (FISH OIL ORAL) Take by mouth. - alcohol swabs Apply 1 application to affected area as needed. - atorvastatin (LIPITOR) 10 mg tablet Take 40 mg by mouth once daily. - carvedilol (COREG) 6.25 mg tablet Take 6.25 mg by mouth once daily. - clopidogrel (PLAVIX) 75 mg tablet Take 1 tablet by mouth every afternoon. - furosemide (LASIX) 20 mg tablet Take 1 tablet by mouth every afternoon. - gabapentin (NEURONTIN) 100 mg capsule Take 100 mg by mouth two times a day. - glipiZIDE (GLUCOTROL) 5 mg tablet Take 5 mg by mouth two times a day before meals. - losartan (COZAAR) 100 mg tablet Take 1 tablet by mouth every afternoon. - sertraline (ZOLOFT) 100 mg tablet Take 100 mg by mouth daily at 6 am. [facility] CNTHERAPY OT/PT/Speech Visit (PTNEWPHIL) CABRERA SOTELO ([id number]) 1970 M Date Time Provider Department 09/20/24 1:15 PM CRYSTAL DAI [facility] Date Time Provider Department Center 09/20/2024 1:15 PM [id number], LYDIA Y [facility] Reason for Visit: Physical Therapy [503] Primary Visit Diagnosis:Flaccid hemiplegia affecting right dominant side, unspecified etiology ([facility]) [G81.01] Other Visit Diagnoses:Localized edema [R60.0] Acute right ankle pain [M25.571] Allergies As of Date: 09/20/2024 (No Known Allergies) Date Reviewed: 05/25/2024 Reviewed by: Dolores Rendon MA - Fully Assessed Prescriptions as of 09/20/2024 - rosuvastatin (CRESTOR) 40 mg tablet Take 40 mg by mouth once daily. - MULTIVITAMIN ORAL Take by mouth. - docosahexaenoic acid/epa (FISH OIL ORAL) Take by mouth. - alcohol swabs Apply 1 application to affected area as needed. - atorvastatin (LIPITOR) 10 mg tablet Take 40 mg by mouth once daily. - carvedilol (COREG) 6.25 mg tablet Take 6.25 mg by mouth once daily. - clopidogrel (PLAVIX) 75 mg tablet Take 1 tablet by mouth every afternoon. - furosemide (LASIX) 20 mg tablet Take 1 tablet by mouth every afternoon. - gabapentin (NEURONTIN) 100 mg capsule Take 100 mg by mouth two times a day. - glipiZIDE (GLUCOTROL) 5 mg tablet Take 5 mg by mouth two times a day before meals. - losartan (COZAAR) 100 mg tablet Take 1 tablet by mouth every afternoon. - sertraline (ZOLOFT) 100 mg tablet Take 100 mg by mouth daily at 6 am. [facility] [id number] 09-18-2024 [id number] O ID: [id number] Author: CRYSTAL DAI PT Service: ? Author Type: Physical Therapist Type: [id number] Filed: 09/18/2024 14:58 Note Text: [facility] Physical Therapy Plan of Care Certification Patient Name: Cabrera Sotelo : 1970 [facility] #: [id number] Date: 09/18/2024 To: Martita Ervin MD From Therapist: Crystal Dai PT RE: Patient Certification/ Recertification Your review, approval and electronic signature are required in order to comply with Payor: MEDICARE / Plan: MEDICARE A AND B / Product Type: Medicare / regulations. The identified Physical Therapy PLAN OF CARE for the patient is as follows: G81.01 Flaccid hemiplegia affecting right dominant side, unspecified etiology (HCC) (primary encounter diagnosis) R60.0 Localized edema M25.571 Acute right ankle pain PLAN OF CARE UPDATE: Assessment: Cabrera Sotelo demonstrates R ankle pain and edema after a fall on 09/16/24. The patient has new goals added to address ankle needs . Patient continues to present with impairments in balance, edema management, flexibility, independence in exercise, overall function, strength, symptom management, and tissue tenderness that interfere with weightbearing tolerance and he has returned to utilizing his AFO which he is securing with gorilla tape stating that a replacement is not financially available at the moment . Current prognosis is Good due to: (minimal joint line swelling) . The patient will benefit from continued skilled therapy services to meet the updated goals for this plan of care as noted below. 06/20/25 - 09/07/24 - Signed 09/18 - 11/18 - SENT Goals for Episode of Care: established 06/19/24 Patient will increase strength of LE +1/2 m. grade to allow patient to improved ease of bed mobility; push through to gait speed - progressing 08/30 Patient will ambulate 400 feet with LBQC Left with stand by assist on level ground. - 90 feet in 2 mins Patient will demonstrate current home exercise program independently. - building 08/30 Patient will improve distance on 2 minute walk test by 40 feet (=98) to increase endurance for household and community ambulation. - progressing 08/30 Patient Goals: walk without a cane; ultimately he would like to return to riding his 3 lau; wants to rebuild a motorcycle that's been put on hold (states that he realizes it wouldn't be safe to drive with visual changes and reaction times) Ankle - added on 09/18/24 Pain: return to 0-1/10 to allow for return to WB exers Girth: reduce 1-1.5 cm Planned Interventions, Frequency, and Duration: (2), (til 11/18) Total Number of Visits Planned: (16) Patient to be seen for Therapeutic exercise (99365), Neuromuscular re-education (61953), Manual therapy (61517), Therapeutic activities (35341), Self-fdc management (33139), Gait Training (61471), Patient/Family/Careg iver Education, Body Mechanics Training, Functional training, General Conditioning, E-Stim Attended/TENS (18375), Vasopneumatic Treatment (21570) (could trial NMES) PLAN FOR NEXT VISIT: address R ankle pain with passive treatment and pull PT when pain reduces to assess for anterior ligamentous stability; NWB LE and core exers are expected as tolerable and ok to continue;HOLD THE FOLLOWING PLAN until R ankle pain reduces: high intensity gait training; balance training, LE strength/joint stabilizing program; PUSH HEP COMPLIANCE for gait with partner; continue increasing LE strength to work towards safe floor transfers. For further details regarding this patient refer to the Physical Therapy electronically documented visit dated 09/18/2024. Provider Attestation I have reviewed the treatment plan for Cabrera Sotelo CC# [id number] for the period of 09/18/24 -- 11/18/24, established on 09/18/2024. Signature certifies the need for therapy services. [facility] CNTHERAPYon 09-18-2024 CNTHERAPY OT/PT/Speech Visit (OTNWPH) CABRERA SOTELO ([id number]) 1970 M Date Time Provider Department 09/18/24 1:45 PM [facility] Date Time Provider Department Center 09/18/2024 1:45 PM [id number], [facility] Reason for Visit: Occupational Therapy [504] Primary Visit Diagnosis:Left basal ganglia embolic stroke (HCC) [I63.9] Other Visit Diagnoses:Weakness [R53.1] Lack of coordination [R27.9] Right shoulder pain, unspecified chronicity [M25.511] Subluxation of right shoulder joint, subsequent encounter [S43.001D] Allergies As of Date: 09/18/2024 (No Known Allergies) Date Reviewed: 05/25/2024 Reviewed by: Dolores Rendon MA - Fully Assessed Prescriptions as of 09/18/2024 - rosuvastatin (CRESTOR) 40 mg tablet Take 40 mg by mouth once daily. - MULTIVITAMIN ORAL Take by mouth. - docosahexaenoic acid/epa (FISH OIL ORAL) Take by mouth. - alcohol swabs Apply 1 application to affected area as needed. - atorvastatin (LIPITOR) 10 mg tablet Take 40 mg by mouth once daily. - carvedilol (COREG) 6.25 mg tablet Take 6.25 mg by mouth once daily. - clopidogrel (PLAVIX) 75 mg tablet Take 1 tablet by mouth every afternoon. - furosemide (LASIX) 20 mg tablet Take 1 tablet by mouth every afternoon. - gabapentin (NEURONTIN) 100 mg capsule Take 100 mg by mouth two times a day. - glipiZIDE (GLUCOTROL) 5 mg tablet Take 5 mg by mouth two times a day before meals. - losartan (COZAAR) 100 mg tablet Take 1 tablet by mouth every afternoon. - sertraline (ZOLOFT) 100 mg tablet Take 100 mg by mouth daily at 6 am. [facility] CNTHERAPY OT/PT/Speech Visit (PTNEWPHIL) CABRERA SOTELO ([id number]) 1970 M Date Time Provider Department 09/18/24 1:00 PM CRYSTAL DAI Y [facility] Date Time Provider Department Center 09/18/2024 1:00 PM [id number], LYDIA Y [facility] P Reason for Visit: PT Re-eval [891] Primary Visit Diagnosis:Flaccid hemiplegia affecting right dominant side, unspecified etiology (HCC) [G81.01] Other Visit Diagnoses:Localized edema [R60.0] Acute right ankle pain [M25.571] Allergies As of Date: 09/18/2024 (No Known Allergies) Date Reviewed: 05/25/2024 Reviewed by: Dolores Rendon MA - Fully Assessed Prescriptions as of 01/22/2025 - MULTIVITAMIN ORAL Take by mouth. - docosahexaenoic acid/epa (FISH OIL ORAL) Take by mouth. - alcohol swabs Apply 1 application to affected area as needed. - atorvastatin (LIPITOR) 10 mg tablet Take 40 mg by mouth once daily. - carvedilol (COREG) 6.25 mg tablet Take 6.25 mg by mouth once daily. - clopidogrel (PLAVIX) 75 mg tablet Take 1 tablet by mouth every afternoon. - furosemide (LASIX) 20 mg tablet Take 1 tablet by mouth every afternoon. - gabapentin (NEURONTIN) 100 mg capsule Take 100 mg by mouth two times a day. - glipiZIDE (GLUCOTROL) 5 mg tablet Take 5 mg by mouth daily before breakfast. - losartan (COZAAR) 100 mg tablet Take 1 tablet by mouth every afternoon. - sertraline (ZOLOFT) 100 mg tablet Take 100 mg by mouth daily at 6 am. [facility] CNTHERAPYon 09-13-2024 CNTHERAPY OT/PT/Speech Visit (PTNEWPHIL) ACBRERA SOTELO ([id number]) 1970 M Date Time Provider Department 09/13/24 2:30 PM [facility] Date Time Provider Department Center 09/13/2024 2:30 PM [id number], CODY [facility] Reason for Visit: Physical Therapy [503] Primary Visit Diagnosis:Flaccid hemiplegia affecting right dominant side, unspecified etiology ([facility]) [G81.01] Allergies As of Date: 09/13/2024 (No Known Allergies) Date Reviewed: 05/25/2024 Reviewed by: Dolores Rendon MA - Fully Assessed Prescriptions as of 09/13/2024 - rosuvastatin (CRESTOR) 40 mg tablet Take 40 mg by mouth once daily. - MULTIVITAMIN ORAL Take by mouth. - docosahexaenoic acid/epa (FISH OIL ORAL) Take by mouth. - alcohol swabs Apply 1 application to affected area as needed. - atorvastatin (LIPITOR) 10 mg tablet Take 40 mg by mouth once daily. - carvedilol (COREG) 6.25 mg tablet Take 6.25 mg by mouth once daily. - clopidogrel (PLAVIX) 75 mg tablet Take 1 tablet by mouth every afternoon. - furosemide (LASIX) 20 mg tablet Take 1 tablet by mouth every afternoon. - gabapentin (NEURONTIN) 100 mg capsule Take 100 mg by mouth two times a day. - glipiZIDE (GLUCOTROL) 5 mg tablet Take 5 mg by mouth two times a day before meals. - losartan (COZAAR) 100 mg tablet Take 1 tablet by mouth every afternoon. - sertraline (ZOLOFT) 100 mg tablet Take 100 mg by mouth daily at 6 am. [facility] CNTHERAPY OT/PT/Speech Visit (OTNWPH) CABRERA SOTELO ([id number]) 1970 M Date Time Provider Department 09/13/24 1:45 PM YANNA DURANT [facility] Date Time Provider Department Center 09/13/2024 1:45 PM [id number], [facility] Reason for Visit: Occupational Therapy [504] Primary Visit Diagnosis:Left basal ganglia embolic stroke (HCC) [I63.9] Other Visit Diagnoses:Weakness [R53.1] Lack of coordination [R27.9] Right shoulder pain, unspecified chronicity [M25.511] Subluxation of right shoulder joint, subsequent encounter [S43.001D] Allergies As of Date: 09/13/2024 (No Known Allergies) Date Reviewed: 05/25/2024 Reviewed by: Dolores Rendon MA - Fully Assessed Prescriptions as of 09/13/2024 - rosuvastatin (CRESTOR) 40 mg tablet Take 40 mg by mouth once daily. - MULTIVITAMIN ORAL Take by mouth. - docosahexaenoic acid/epa (FISH OIL ORAL) Take by mouth. - alcohol swabs Apply 1 application to affected area as needed. - atorvastatin (LIPITOR) 10 mg tablet Take 40 mg by mouth once daily. - carvedilol (COREG) 6.25 mg tablet Take 6.25 mg by mouth once daily. - clopidogrel (PLAVIX) 75 mg tablet Take 1 tablet by mouth every afternoon. - furosemide (LASIX) 20 mg tablet Take 1 tablet by mouth every afternoon. - gabapentin (NEURONTIN) 100 mg capsule Take 100 mg by mouth two times a day. - glipiZIDE (GLUCOTROL) 5 mg tablet Take 5 mg by mouth two times a day before meals. - losartan (COZAAR) 100 mg tablet Take 1 tablet by mouth every afternoon. - sertraline (ZOLOFT) 100 mg tablet Take 100 mg by mouth daily at 6 am. Firmware Test Engineer: Therapy (PT/OT/Speech/Resp) ID: [id number] 09/13/2024 3:38 PM Author: YANNA DURANT Signed by YANNA DURANT/Benton on 09/13/2024 at 3:38 PM Document text: Program_ID:[id number] Access Code: [email or web address] URL: [email or web address] Date: 09-13-2024 Prepared By: CRYSTAL DAI Program Notes Exercises - Seated March - x daily - 7 x weekly - 3 sets - 5-8 reps - Forward and Backward Stepping at Pool Wall - x daily - 7 x weekly - sets - reps - Sitting Knee Extension with Resistance - 1 x daily - 7 x weekly - 2 sets - 10 reps - Seated Long Arc Quad - 1 x daily - 7 x weekly - 2 sets - 10 reps - Supine Quad Set - 1 x daily - 7 x weekly - 2 sets - 10 reps - Standing Terminal Knee Extension with Resistance - 1 x daily - 7 x weekly - 2 sets - 10 reps - Marching with Resistance - 1 x daily - 7 x weekly - 2 sets - 10 reps - Side to Side Weight Shift with Counter Support - 1 x daily - 7 x weekly - 2 sets - 10 reps - Standing UE Activity: Weight-Bearing With Extended Elbows, Open Hand - 1 x daily - 7 x weekly - 3 sets - 10 reps - Forearm Supination with Resistance - 1 x daily - 7 x weekly - 3 sets - 10 reps - Hand Towel Scrunching - 1 x daily - 7 x weekly - 3 sets - 10 reps - Towel Roll Squeeze - 1 x daily - 7 x weekly - 3 sets - 10 reps - Seated Isometric Elbow Flexion - 1 x daily - 7 x weekly - 3 sets - 10 reps - Seated Elbow Flexion with Resistance - 1 x daily - 7 x weekly - 3 sets - 10 reps - Forearm Supination with Resistance Bar - 1 x daily - 7 x weekly - 3 sets - 10 reps - Forearm Pronation with Resistance Bar - 1 x daily - 7 x weekly - 3 sets - 10 reps - Forearm Supination with Resistance Bar - 1 x daily - 7 x weekly - 3 sets - 10 reps - Forearm Pronation with Resistance Bar - 1 x daily - 7 x weekly - 3 sets - 10 reps - Wrist Flexion with Resistance Bar - 1 x daily - 7 x weekly - 3 sets - 10 reps - Wrist Flexion with Resistance Bar - 1 x daily - 7 x weekly - 3 sets - 10 reps Patient Education - Adaptive Equipment for Eating - Using a [place] Cuff -------- [facility] THERAPY NTon 09-13-2024 THERAPY NT HNO ID: [id number] Author: YANNA DURANT OTA/L Service: Occupational Therapy Author Type: Dairy Management Specialist Type: Therapy (PT/OT/Speech/Resp) Filed: 09/13/2024 15:38 Note Text: Program_ID:[id number] Access Code: [email or web address] URL: [email or web address] Date: 09-13-2024 Prepared By: CRYSTAL DAI Program Notes Exercises - Seated March - x daily - 7 x weekly - 3 sets - 5-8 reps - Forward and Backward Stepping at Pool Wall - x daily - 7 x weekly - sets - reps - Sitting Knee Extension with Resistance - 1 x daily - 7 x weekly - 2 sets - 10 reps - Seated Long Arc Quad - 1 x daily - 7 x weekly - 2 sets - 10 reps - Supine Quad Set - 1 x daily - 7 x weekly - 2 sets - 10 reps - Standing Terminal Knee Extension with Resistance - 1 x daily - 7 x weekly - 2 sets - 10 reps - Marching with Resistance - 1 x daily - 7 x weekly - 2 sets - 10 reps - Side to Side Weight Shift with Counter Support - 1 x daily - 7 x weekly - 2 sets - 10 reps - Standing UE Activity: Weight-Bearing With Extended Elbows, Open Hand - 1 x daily - 7 x weekly - 3 sets - 10 reps - Forearm Supination with Resistance - 1 x daily - 7 x weekly - 3 sets - 10 reps - Hand Towel Scrunching - 1 x daily - 7 x weekly - 3 sets - 10 reps - Towel Roll Squeeze - 1 x daily - 7 x weekly - 3 sets - 10 reps - Seated Isometric Elbow Flexion - 1 x daily - 7 x weekly - 3 sets - 10 reps - Seated Elbow Flexion with Resistance - 1 x daily - 7 x weekly - 3 sets - 10 reps - Forearm Supination with Resistance Bar - 1 x daily - 7 x weekly - 3 sets - 10 reps - Forearm Pronation with Resistance Bar - 1 x daily - 7 x weekly - 3 sets - 10 reps - Forearm Supination with Resistance Bar - 1 x daily - 7 x weekly - 3 sets - 10 reps - Forearm Pronation with Resistance Bar - 1 x daily - 7 x weekly - 3 sets - 10 reps - Wrist Flexion with Resistance Bar - 1 x daily - 7 x weekly - 3 sets - 10 reps - Wrist Flexion with Resistance Bar - 1 x daily - 7 x weekly - 3 sets - 10 reps Patient Education - Adaptive Equipment for Eating - Using a [place] Cuff Normal [facility] CNTHERAPYon 09-11-2024 CNTHERAPY OT/PT/Speech Visit (PTNEWPHIL) CABRERA SOTELO ([id number]) 1970 M Date Time Provider Department 09/11/24 2:30 PM [facility]N [facility] Date Time Provider Department Center 09/11/2024 2:30 PM [id number] [facility] for Visit: Physical Therapy [503] Primary Visit Diagnosis:Flaccid hemiplegia affecting right dominant side, unspecified etiology ([facility]) [G81.01] Allergies As of Date: 09/11/2024 (No Known Allergies) Date Reviewed: 05/25/2024 Reviewed by: Dolores Rendon MA - Fully Assessed Prescriptions as of 09/11/2024 - rosuvastatin (CRESTOR) 40 mg tablet Take 40 mg by mouth once daily. - MULTIVITAMIN ORAL Take by mouth. - docosahexaenoic acid/epa (FISH OIL ORAL) Take by mouth. - alcohol swabs Apply 1 application to affected area as needed. - atorvastatin (LIPITOR) 10 mg tablet Take 40 mg by mouth once daily. - carvedilol (COREG) 6.25 mg tablet Take 6.25 mg by mouth once daily. - clopidogrel (PLAVIX) 75 mg tablet Take 1 tablet by mouth every afternoon. - furosemide (LASIX) 20 mg tablet Take 1 tablet by mouth every afternoon. - gabapentin (NEURONTIN) 100 mg capsule Take 100 mg by mouth two times a day. - glipiZIDE (GLUCOTROL) 5 mg tablet Take 5 mg by mouth two times a day before meals. - losartan (COZAAR) 100 mg tablet Take 1 tablet by mouth every afternoon. - sertraline (ZOLOFT) 100 mg tablet Take 100 mg by mouth daily at 6 am. [facility] CNTHERAPY OT/PT/Speech Visit (OTNWPH) CABRERA SOTELO ([id number]) 1970 M Date Time Provider Department 09/11/24 1:45 PM RIVKA NARANJO [facility] Date Time Provider Department Center 09/11/2024 1:45 PM [id number], ABIGAIL [facility] P Reason for Visit: OT Progress Note [1595] Primary Visit Diagnosis:Left basal ganglia embolic stroke (HCC) [I63.9] Other Visit Diagnoses:Weakness [R53.1] Lack of coordination [R27.9] Right shoulder pain, unspecified chronicity [M25.511] Subluxation of right shoulder joint, subsequent encounter [S43.001D] Allergies As of Date: 09/11/2024 (No Known Allergies) Date Reviewed: 05/25/2024 Reviewed by: Dolores Rendon MA - Fully Assessed Prescriptions as of 09/11/2024 - rosuvastatin (CRESTOR) 40 mg tablet Take 40 mg by mouth once daily. - MULTIVITAMIN ORAL Take by mouth. - docosahexaenoic acid/epa (FISH OIL ORAL) Take by mouth. - alcohol swabs Apply 1 application to affected area as needed. - atorvastatin (LIPITOR) 10 mg tablet Take 40 mg by mouth once daily. - carvedilol (COREG) 6.25 mg tablet Take 6.25 mg by mouth once daily. - clopidogrel (PLAVIX) 75 mg tablet Take 1 tablet by mouth every afternoon. - furosemide (LASIX) 20 mg tablet Take 1 tablet by mouth every afternoon. - gabapentin (NEURONTIN) 100 mg capsule Take 100 mg by mouth two times a day. - glipiZIDE (GLUCOTROL) 5 mg tablet Take 5 mg by mouth two times a day before meals. - losartan (COZAAR) 100 mg tablet Take 1 tablet by mouth every afternoon. - sertraline (ZOLOFT) 100 mg tablet Take 100 mg by mouth daily at 6 am. [facility] [id number] 09-01-2024 [id number] [facility] ID: [id number] Author: CRYSTAL DAI PT Service: ? Author Type: Physical Therapist Type: [id number] Filed: 09/01/2024 09:57 Note Text: [facility] Physical Therapy Plan of Care Certification Patient Name: Cabrera Sotelo : 1970 [facility]CF #: [id number] Date: 08/30/2024 To: Martita Ervin MD From Therapist: Crystal Dai PT RE: Patient Certification/ Recertification Your review, approval and electronic signature are required in order to comply with Payor: MEDICARE / Plan: MEDICARE A AND B / Product Type: Medicare / regulations. The identified Physical Therapy PLAN OF CARE for the patient is as follows: G81.01 Flaccid hemiplegia affecting right dominant side, unspecified etiology (HCC) (primary encounter diagnosis) PLAN OF CARE UPDATE: Assessment: Cabrera Sotelo demonstrates improvements in walking in the house. The patient has progressed toward goals. Patient continues to present with impairments in balance, independence in exercise, overall function, strength, and symptom management that interfere with indep. walking . Current prognosis is Fair due to: (progress to date) . The patient will benefit from continued skilled therapy services to meet the updated goals for this plan of care as noted below. 06/20/25 - 09/07/24 - Signed 09/18 - 11/18 - SENT Goals for Episode of Care: established 06/19/24 Patient will increase strength of LE +1/2 m. grade to allow patient to improved ease of bed mobility; push through to gait speed - progressing 08/30 Patient will ambulate 400 feet with LBQC Left with stand by assist on level ground. - 90 feet in 2 mins Patient will demonstrate current home exercise program independently. - building 08/30 Patient will improve distance on 2 minute walk test by 40 feet (=98) to increase endurance for household and community ambulation. - progressing 08/30 Patient Goals: walk without a cane; ultimately he would like to return to riding his 3 lau; wants to rebuild a motorcycle that's been put on hold (states that he realizes it wouldn't be safe to drive with visual changes and reaction times) Time Frame for Goals and Treatment : 11/18/24 Planned Interventions, Frequency, and Duration: (2), (10) Total Number of Visits Planned: (20) Patient to be seen for Therapeutic exercise (00359), Neuromuscular re-education (07559), Manual therapy (69072), Therapeutic activities (97274), Self-fdc management (34583), Gait Training (48897), Patient/Family/Careg iver Education, Body Mechanics Training, Functional training, General Conditioning, E-Stim Attended/TENS (07958) (could trial NMES) PLAN FOR NEXT VISIT: high intensity gait training; balance training, LE strength/joint stabilizing program; PUSH HEP COMPLIANCE for gait with partner For further details regarding this patient refer to the Physical Therapy electronically documented visit dated 08/30/2024. Provider Attestation I have reviewed the treatment plan for Cabrera Sotelo, CCF# [id number] for the period of 09/18/24 -- 11/18/24, established on 08/30/2024. Signature certifies the need for therapy services. [facility] CNTHERAPYon 08-30-2024 CNTHERAPY OT/PT/Speech Visit (OTNWPH) CABRERA SOTELO Tod ([id number]) 1970 M Date Time Provider Department 08/30/24 1:45 PM YANNA DURANT [facility] Date Time Provider Department Center 08/30/2024 1:45 PM [id number], [facility] Reason for Visit: Occupational Therapy [504] Primary Visit Diagnosis:Left basal ganglia embolic stroke (HCC) [I63.9] Other Visit Diagnoses:Weakness [R53.1] Lack of coordination [R27.9] Right shoulder pain, unspecified chronicity [M25.511] Subluxation of right shoulder joint, subsequent encounter [S43.001D] Allergies As of Date: 08/30/2024 (No Known Allergies) Date Reviewed: 05/25/2024 Reviewed by: Dolores Rendon MA - Fully Assessed Prescriptions as of 08/31/2024 - rosuvastatin (CRESTOR) 40 mg tablet Take 40 mg by mouth once daily. - MULTIVITAMIN ORAL Take by mouth. - docosahexaenoic acid/epa (FISH OIL ORAL) Take by mouth. - alcohol swabs Apply 1 application to affected area as needed. - atorvastatin (LIPITOR) 10 mg tablet Take 40 mg by mouth once daily. - carvedilol (COREG) 6.25 mg tablet Take 6.25 mg by mouth once daily. - clopidogrel (PLAVIX) 75 mg tablet Take 1 tablet by mouth every afternoon. - furosemide (LASIX) 20 mg tablet Take 1 tablet by mouth every afternoon. - gabapentin (NEURONTIN) 100 mg capsule Take 100 mg by mouth two times a day. - glipiZIDE (GLUCOTROL) 5 mg tablet Take 5 mg by mouth two times a day before meals. - losartan (COZAAR) 100 mg tablet Take 1 tablet by mouth every afternoon. - sertraline (ZOLOFT) 100 mg tablet Take 100 mg by mouth daily at 6 am. [facility] CNTHERAPY OT/PT/Speech Visit (PTNEWPHIL) CABRERA SOTELO ([id number]) 1970 M Date Time Provider Department 08/30/24 1:15 PM CRYSTAL DAI [facility] Date Time Provider Department Center 08/30/2024 1:15 PM [id number], LYDIA Y [facility] Reason for Visit: PT Progress Note [1596] Primary Visit Diagnosis:Flaccid hemiplegia affecting right dominant side, unspecified etiology ([facility]) [G81.01] Allergies As of Date: 08/30/2024 (No Known Allergies) Date Reviewed: 05/25/2024 Reviewed by: Dolores Rendon MA - Fully Assessed Prescriptions as of 09/18/2024 - rosuvastatin (CRESTOR) 40 mg tablet Take 40 mg by mouth once daily. - MULTIVITAMIN ORAL Take by mouth. - docosahexaenoic acid/epa (FISH OIL ORAL) Take by mouth. - alcohol swabs Apply 1 application to affected area as needed. - atorvastatin (LIPITOR) 10 mg tablet Take 40 mg by mouth once daily. - carvedilol (COREG) 6.25 mg tablet Take 6.25 mg by mouth once daily. - clopidogrel (PLAVIX) 75 mg tablet Take 1 tablet by mouth every afternoon. - furosemide (LASIX) 20 mg tablet Take 1 tablet by mouth every afternoon. - gabapentin (NEURONTIN) 100 mg capsule Take 100 mg by mouth two times a day. - glipiZIDE (GLUCOTROL) 5 mg tablet Take 5 mg by mouth two times a day before meals. - losartan (COZAAR) 100 mg tablet Take 1 tablet by mouth every afternoon. - sertraline (ZOLOFT) 100 mg tablet Take 100 mg by mouth daily at 6 am. [facility] CNTHERAPYon 08-23-2024 CNTHERAPY OT/PT/Speech Visit (OTNWPH) CABRERA SOTELO ([id number]) 1970 M Date Time Provider Department 08/23/24 1:45 PM PRABHAKAR YANNA [facility] Date Time Provider Department Center 08/23/2024 1:45 PM [id number] [facility] Reason for Visit: Occupational Therapy [504] Primary Visit Diagnosis:Left basal ganglia embolic stroke (HCC) [I63.9] Other Visit Diagnoses:Weakness [R53.1] Lack of coordination [R27.9] Right shoulder pain, unspecified chronicity [M25.511] Subluxation of right shoulder joint, subsequent encounter [S43.001D] Allergies As of Date: 08/23/2024 (No Known Allergies) Date Reviewed: 05/25/2024 Reviewed by: Dolores Rendon MA - Fully Assessed Prescriptions as of 08/23/2024 - rosuvastatin (CRESTOR) 40 mg tablet Take 40 mg by mouth once daily. - MULTIVITAMIN ORAL Take by mouth. - docosahexaenoic acid/epa (FISH OIL ORAL) Take by mouth. - alcohol swabs Apply 1 application to affected area as needed. - atorvastatin (LIPITOR) 10 mg tablet Take 40 mg by mouth once daily. - carvedilol (COREG) 6.25 mg tablet Take 6.25 mg by mouth once daily. - clopidogrel (PLAVIX) 75 mg tablet Take 1 tablet by mouth every afternoon. - furosemide (LASIX) 20 mg tablet Take 1 tablet by mouth every afternoon. - gabapentin (NEURONTIN) 100 mg capsule Take 100 mg by mouth two times a day. - glipiZIDE (GLUCOTROL) 5 mg tablet Take 5 mg by mouth two times a day before meals. - losartan (COZAAR) 100 mg tablet Take 1 tablet by mouth every afternoon. - sertraline (ZOLOFT) 100 mg tablet Take 100 mg by mouth daily at 6 am. Firmware Test Engineer: Therapy (PT/OT/Speech/Resp) ID: [id number] 08/23/2024 5:10 PM Author: YANNA DURANT Signed by YANNA DURANT on 08/23/2024 at 5:10 PM Document text: Program_ID:[id number] Access Code: [email or web address] URL: [email or web address] Date: 08-23-2024 Prepared By: CRYSTAL DAI Program Notes Exercises - Seated March - x daily - 7 x weekly - 3 sets - 5-8 reps - Forward and Backward Stepping at Pool Wall - x daily - 7 x weekly - sets - reps - Sitting Knee Extension with Resistance - 1 x daily - 7 x weekly - 2 sets - 10 reps - Seated Long Arc Quad - 1 x daily - 7 x weekly - 2 sets - 10 reps - Supine Quad Set - 1 x daily - 7 x weekly - 2 sets - 10 reps - Standing Terminal Knee Extension with Resistance - 1 x daily - 7 x weekly - 2 sets - 10 reps - Marching with Resistance - 1 x daily - 7 x weekly - 2 sets - 10 reps - Side to Side Weight Shift with Counter Support - 1 x daily - 7 x weekly - 2 sets - 10 reps - Standing UE Activity: Weight-Bearing With Extended Elbows, Open Hand - 1 x daily - 7 x weekly - 3 sets - 10 reps Patient Education - Adaptive Equipment for Eating - Using a [place] Cuff -------- [facility] THERAPY NTon 08-23-2024 THERAPY NT HNO ID: [id number] Author: YANNA DURANT OTA/L Service: Occupational Therapy Author Type: Dairy Management Specialist Type: Therapy (PT/OT/Speech/Resp) Filed: 08/23/2024 17:10 Note Text: Program_ID:[id number] Access Code: [email or web address] URL: [email or web address] Date: 08-23-2024 Prepared By: CRYSTAL DAI Program Notes Exercises - Seated March - x daily - 7 x weekly - 3 sets - 5-8 reps - Forward and Backward Stepping at Pool Wall - x daily - 7 x weekly - sets - reps - Sitting Knee Extension with Resistance - 1 x daily - 7 x weekly - 2 sets - 10 reps - Seated Long Arc Quad - 1 x daily - 7 x weekly - 2 sets - 10 reps - Supine Quad Set - 1 x daily - 7 x weekly - 2 sets - 10 reps - Standing Terminal Knee Extension with Resistance - 1 x daily - 7 x weekly - 2 sets - 10 reps - Marching with Resistance - 1 x daily - 7 x weekly - 2 sets - 10 reps - Side to Side Weight Shift with Counter Support - 1 x daily - 7 x weekly - 2 sets - 10 reps - Standing UE Activity: Weight-Bearing With Extended Elbows, Open Hand - 1 x daily - 7 x weekly - 3 sets - 10 reps Patient Education - Adaptive Equipment for Eating - Using a [place] Cuff [facility] CNTHERAPYon 08-21-2024 CNTHERAPY OT/PT/Speech Visit (OTNWPH) CABRERA SOTELO ([id number]) 1970 M Date Time Provider Department 08/21/24 1:45 PM [facility] Date Time Provider Department Center 08/21/2024 1:45 PM [id number], YANNA [facility] Reason for Visit: Occupational Therapy [504] Primary Visit Diagnosis:Left basal ganglia embolic stroke (HCC) [I63.9] Other Visit Diagnoses:Weakness [R53.1] Lack of coordination [R27.9] Right shoulder pain, unspecified chronicity [M25.511] Subluxation of right shoulder joint, subsequent encounter [S43.001D] Allergies As of Date: 08/21/2024 (No Known Allergies) Date Reviewed: 05/25/2024 Reviewed by: Dolores Rendon MA - Fully Assessed Prescriptions as of 08/21/2024 - rosuvastatin (CRESTOR) 40 mg tablet Take 40 mg by mouth once daily. - MULTIVITAMIN ORAL Take by mouth. - docosahexaenoic acid/epa (FISH OIL ORAL) Take by mouth. - alcohol swabs Apply 1 application to affected area as needed. - atorvastatin (LIPITOR) 10 mg tablet Take 40 mg by mouth once daily. - carvedilol (COREG) 6.25 mg tablet Take 6.25 mg by mouth once daily. - clopidogrel (PLAVIX) 75 mg tablet Take 1 tablet by mouth every afternoon. - furosemide (LASIX) 20 mg tablet Take 1 tablet by mouth every afternoon. - gabapentin (NEURONTIN) 100 mg capsule Take 100 mg by mouth two times a day. - glipiZIDE (GLUCOTROL) 5 mg tablet Take 5 mg by mouth two times a day before meals. - losartan (COZAAR) 100 mg tablet Take 1 tablet by mouth every afternoon. - sertraline (ZOLOFT) 100 mg tablet Take 100 mg by mouth daily at 6 am. [facility] CNTHERAPY OT/PT/Speech Visit (PTNEWPHIL) CABRERA SOTELO ([id number]) 1970 M Date Time Provider Department 08/21/24 1:15 PM OUSMANE PRO [facility] Date Time Provider Department [place] 08/21/2024 1:15 PM [id number], DIANA [facility] Reason for Visit: Physical Therapy [503] Primary Visit Diagnosis:Flaccid hemiplegia affecting right dominant side, unspecified etiology ([facility]) [G81.01] Allergies As of Date: 08/21/2024 (No Known Allergies) Date Reviewed: 05/25/2024 Reviewed by: Dolores Rednon MA - Fully Assessed Prescriptions as of 08/21/2024 - rosuvastatin (CRESTOR) 40 mg tablet Take 40 mg by mouth once daily. - MULTIVITAMIN ORAL Take by mouth. - docosahexaenoic acid/epa (FISH OIL ORAL) Take by mouth. - alcohol swabs Apply 1 application to affected area as needed. - atorvastatin (LIPITOR) 10 mg tablet Take 40 mg by mouth once daily. - carvedilol (COREG) 6.25 mg tablet Take 6.25 mg by mouth once daily. - clopidogrel (PLAVIX) 75 mg tablet Take 1 tablet by mouth every afternoon. - furosemide (LASIX) 20 mg tablet Take 1 tablet by mouth every afternoon. - gabapentin (NEURONTIN) 100 mg capsule Take 100 mg by mouth two times a day. - glipiZIDE (GLUCOTROL) 5 mg tablet Take 5 mg by mouth two times a day before meals. - losartan (COZAAR) 100 mg tablet Take 1 tablet by mouth every afternoon. - sertraline (ZOLOFT) 100 mg tablet Take 100 mg by mouth daily at 6 am. [facility] CNTHERAPYon 08-16-2024 CNTHERAPY OT/PT/Speech Visit (PTNEWPHIL) CABRERA SOTELO ([id number]) 1970 M Date Time Provider Department 08/16/24 2:45 PM OUSMANE PRO [facility] Date Time Provider Department Center 08/16/2024 2:45 PM [id number], DIANA [facility] Reason for Visit: Physical Therapy [503] Primary Visit Diagnosis:Flaccid hemiplegia affecting right dominant side, unspecified etiology ([facility]) [G81.01] Allergies As of Date: 08/16/2024 (No Known Allergies) Date Reviewed: 05/25/2024 Reviewed by: Dolores Rendon MA - Fully Assessed Prescriptions as of 08/18/2024 - rosuvastatin (CRESTOR) 40 mg tablet Take 40 mg by mouth once daily. - MULTIVITAMIN ORAL Take by mouth. - docosahexaenoic acid/epa (FISH OIL ORAL) Take by mouth. - alcohol swabs Apply 1 application to affected area as needed. - atorvastatin (LIPITOR) 10 mg tablet Take 40 mg by mouth once daily. - carvedilol (COREG) 6.25 mg tablet Take 6.25 mg by mouth once daily. - clopidogrel (PLAVIX) 75 mg tablet Take 1 tablet by mouth every afternoon. - furosemide (LASIX) 20 mg tablet Take 1 tablet by mouth every afternoon. - gabapentin (NEURONTIN) 100 mg capsule Take 100 mg by mouth two times a day. - glipiZIDE (GLUCOTROL) 5 mg tablet Take 5 mg by mouth two times a day before meals. - losartan (COZAAR) 100 mg tablet Take 1 tablet by mouth every afternoon. - sertraline (ZOLOFT) 100 mg tablet Take 100 mg by mouth daily at 6 am. [facility] CNTHERAPY OT/PT/Speech Visit (OTNWPH) CABRERA SOTELO ([id number]) 1970 M Date Time Provider Department 08/16/24 1:45 PM YANNA VANCE OTNWPH Date Time Provider Department Center 08/16/2024 1:45 PM [id number], HEATHER [facility] Reason for Visit: Occupational Therapy [504] Primary Visit Diagnosis:Left basal ganglia embolic stroke (HCC) [I63.9] Other Visit Diagnoses:Weakness [R53.1] Lack of coordination [R27.9] Right shoulder pain, unspecified chronicity [M25.511] Subluxation of right shoulder joint, subsequent encounter [S43.001D] Allergies As of Date: 08/16/2024 (No Known Allergies) Date Reviewed: 05/25/2024 Reviewed by: Dolores Rendon MA - Fully Assessed Prescriptions as of 08/16/2024 - rosuvastatin (CRESTOR) 40 mg tablet Take 40 mg by mouth once daily. - MULTIVITAMIN ORAL Take by mouth. - docosahexaenoic acid/epa (FISH OIL ORAL) Take by mouth. - alcohol swabs Apply 1 application to affected area as needed. - atorvastatin (LIPITOR) 10 mg tablet Take 40 mg by mouth once daily. - carvedilol (COREG) 6.25 mg tablet Take 6.25 mg by mouth once daily. - clopidogrel (PLAVIX) 75 mg tablet Take 1 tablet by mouth every afternoon. - furosemide (LASIX) 20 mg tablet Take 1 tablet by mouth every afternoon. - gabapentin (NEURONTIN) 100 mg capsule Take 100 mg by mouth two times a day. - glipiZIDE (GLUCOTROL) 5 mg tablet Take 5 mg by mouth two times a day before meals. - losartan (COZAAR) 100 mg tablet Take 1 tablet by mouth every afternoon. - sertraline (ZOLOFT) 100 mg tablet Take 100 mg by mouth daily at 6 am. [facility] [id number] 08-14-2024 [id number] O ID: [id number] Author: RIVKA NARANJO OTR/Benton Service: ? Author Type: Occupational Therapist Type: [id number] Filed: 08/14/2024 14:59 Note Text: [facility] Occupational Therapy Plan of Care Certification Patient Name: Cabrera Sotelo : 1970 CCF #: [id number] Date: 08/14/2024 To: Martita Ervin MD From Therapist: NAVNEET Hastings/Benton RE: Patient Certification/ Recertification Your review, approval and electronic signature are required in order to comply with Payor: MEDICARE / Plan: MEDICARE A AND B / Product Type: Medicare / regulations. The identified Occupational Therapy PLAN OF CARE for the patient is as follows: I63.9 Left basal ganglia embolic stroke (HCC) (primary encounter diagnosis) R53.1 Weakness R27.9 Lack of coordination M25.511 Right shoulder pain, unspecified chronicity S43.001D Subluxation of right shoulder joint, subsequent encounter PLAN OF CARE UPDATE: Assessment: Cabrera Sotelo demonstrates improvements in standing, walking, walking in the house, walking in the community, physical activities, recreational activities, reaching behind back, reaching overhead, cooking, dressing, grooming, feeding self, weight bearing, gripping, pinching, and pulling. The patient has progressed toward goals. Patient continues to present with impairments in ADL's, balance, coordination, independence in exercise, joint mobility, overall function, patient reported outcome measures, range of motion, sensation, strength, and symptom management that interfere with ADLs and IADLs . Current prognosis is Fair due to: clinical presentation, multiple co- morbidities, chronic nature of impairments, Prognosis may be improved by within-session changes, good support system/ coping skills. The patient will benefit from continued skilled therapy services to meet the updated goals for this plan of care as noted below. PLAN FOR NEXT VISIT: NMES for bicep contraction while on bike for muscle and neuro retraining; wt bearing through RUE as tolerated with close monitoring of R shoulder LTGs = 12 weeks: 1.Patient will demo decreased UE stroke related symptoms as evidenced by decreasing QuickDash disability/symptom score to 30 or less. GOAL NOT PARTIALLY MET, decreased to 36.3 2. Patient will demo improved QOL as evidenced by increasing PSFS score to 7 or greater. 3.Patient will complete community mobility at [place] level or greater to increase return to PLOF. GOAL NOT PARTIALLY MET, d/c focus on driving, cont for car transfers and walking on different surfaces STGs = 6 weeks: 1.Patient will increase R hospital wellness coordinator strength to 10# or greater. GOAL MET at 12# on 08/14 GOAL UPGRADED: Patient will increase R hospital wellness coordinator strength to 20# or greater. 2. Patient will increase RUE AROM over all joints tested to 700 degrees over joints tested or greater. GOAL PARTIALLY MET, increased to 565 3.Patient and family will be IND with UB HEP. GOAL PARTIALLY MET, ongoing MET GOALS: 1.Patient will demo decreased UE stroke related symptoms as evidenced by decreasing QuickDash disability/symptom score to 75 or less. GOAL MET 06/19 with 45.4 2.Patient will increase RUE PROM over all joints tested by 100 degrees or greater. GOAL MET, increased by 140 degrees 2.Patient will demo improved QOL as evidenced by increasing PSFS score to 5 or greater. GOAL MET 07/17, increased from 1.83 to 5.3 2. Patient will increase RUE AROM over all joints tested by 100 degrees or greater. GOAL MET, increased by 115 Time Frame for Goals and Treatment : 10/09/24 Planned Interventions, Frequency, and Duration: 2x/week, 8 weeks Total Number of Visits Planned: 16 Planned Treatment Interventions: Custom orthosis fabrication, Prefabricated orthosis fitting, Therapeutic exercise (93191), Therapeutic activities (42238), Manual therapy (86600), Neuromuscular re-education (52969), Self-fdc management (63107), Sensory Integration (27686), Physical performance test, Orthotics management and training (50596,42700), Patient/Family/Careg iver Education, Functional training, Community / Work Reintegration, Ultrasound (09596), E-Stim Attended/TENS (57112), Fluidotherapy (40475) For further details regarding this patient refer to the Occupational Therapy electronically documented visit dated 08/14/2024. Provider Attestation I have reviewed the treatment plan for Cabrera Sotelo, CCF# [id number] for the period of 08/14/24 -- 10/09/24, established on 08/14/2024. Signature certifies the need for therapy services. [facility] CNTHERAPYon 08-14-2024 CNTHERAPY OT/PT/Speech Visit (PTNEWPHIL) CABRERA SOTELO ([id number]) 1970 M Date Time Provider Department 08/14/24 2:45 PM OUSMANE PRO [facility] Date Time Provider Department Center 08/14/2024 2:45 [id number] Reason for Visit: Physical Therapy [503] Primary Visit Diagnosis:Flaccid hemiplegia affecting right dominant side, unspecified etiology ([facility]) [G81.01] Allergies As of Date: 08/14/2024 (No Known Allergies) Date Reviewed: 05/25/2024 Reviewed by: Dolores Rendon MA - Fully Assessed Prescriptions as of 08/14/2024 - rosuvastatin (CRESTOR) 40 mg tablet Take 40 mg by mouth once daily. - MULTIVITAMIN ORAL Take by mouth. - docosahexaenoic acid/epa (FISH OIL ORAL) Take by mouth. - alcohol swabs Apply 1 application to affected area as needed. - atorvastatin (LIPITOR) 10 mg tablet Take 40 mg by mouth once daily. - carvedilol (COREG) 6.25 mg tablet Take 6.25 mg by mouth once daily. - clopidogrel (PLAVIX) 75 mg tablet Take 1 tablet by mouth every afternoon. - furosemide (LASIX) 20 mg tablet Take 1 tablet by mouth every afternoon. - gabapentin (NEURONTIN) 100 mg capsule Take 100 mg by mouth two times a day. - glipiZIDE (GLUCOTROL) 5 mg tablet Take 5 mg by mouth two times a day before meals. - losartan (COZAAR) 100 mg tablet Take 1 tablet by mouth every afternoon. - sertraline (ZOLOFT) 100 mg tablet Take 100 mg by mouth daily at 6 am. [facility] CNTHERAPY OT/PT/Speech Visit (OTNWPH) CABRERA SOTELO ([id number]) 1970 M Date Time Provider Department 08/14/24 1:45 PM BOLIVAR RIVKA [facility] Date Time Provider Department [place] 08/14/2024 1:45 PM [id number] [facility] Reason for Visit: OT Progress Note [1595] Primary Visit Diagnosis:Left basal ganglia embolic stroke (HCC) [I63.9] Other Visit Diagnoses:Weakness [R53.1] Lack of coordination [R27.9] Right shoulder pain, unspecified chronicity [M25.511] Subluxation of right shoulder joint, subsequent encounter [S43.001D] Allergies As of Date: 08/14/2024 (No Known Allergies) Date Reviewed: 05/25/2024 Reviewed by: Dolores Rendon MA - Fully Assessed Prescriptions as of 08/14/2024 - rosuvastatin (CRESTOR) 40 mg tablet Take 40 mg by mouth once daily. - MULTIVITAMIN ORAL Take by mouth. - docosahexaenoic acid/epa (FISH OIL ORAL) Take by mouth. - alcohol swabs Apply 1 application to affected area as needed. - atorvastatin (LIPITOR) 10 mg tablet Take 40 mg by mouth once daily. - carvedilol (COREG) 6.25 mg tablet Take 6.25 mg by mouth once daily. - clopidogrel (PLAVIX) 75 mg tablet Take 1 tablet by mouth every afternoon. - furosemide (LASIX) 20 mg tablet Take 1 tablet by mouth every afternoon. - gabapentin (NEURONTIN) 100 mg capsule Take 100 mg by mouth two times a day. - glipiZIDE (GLUCOTROL) 5 mg tablet Take 5 mg by mouth two times a day before meals. - losartan (COZAAR) 100 mg tablet Take 1 tablet by mouth every afternoon. - sertraline (ZOLOFT) 100 mg tablet Take 100 mg by mouth daily at 6 am. [facility] CNTHERAPYon 08-07-2024 CNTHERAPY OT/PT/Speech Visit (PTNEWPHIL) CABRERA SOTELO ([id number]) 1970 M Date Time Provider Department 08/07/24 2:45 PM SHEEBA OUSMANEERIK THAYER Date Time Provider Department Center 08/07/2024 2:45 PM [id number][facility] Reason for Visit: Physical Therapy [503] Primary Visit Diagnosis:Flaccid hemiplegia affecting right dominant side, unspecified etiology ([facility]) [G81.01] Allergies As of Date: 08/07/2024 (No Known Allergies) Date Reviewed: 05/25/2024 Reviewed by: Dolores Rendon MA - Fully Assessed Prescriptions as of 08/07/2024 - rosuvastatin (CRESTOR) 40 mg tablet Take 40 mg by mouth once daily. - MULTIVITAMIN ORAL Take by mouth. - docosahexaenoic acid/epa (FISH OIL ORAL) Take by mouth. - alcohol swabs Apply 1 application to affected area as needed. - atorvastatin (LIPITOR) 10 mg tablet Take 40 mg by mouth once daily. - carvedilol (COREG) 6.25 mg tablet Take 6.25 mg by mouth once daily. - clopidogrel (PLAVIX) 75 mg tablet Take 1 tablet by mouth every afternoon. - furosemide (LASIX) 20 mg tablet Take 1 tablet by mouth every afternoon. - gabapentin (NEURONTIN) 100 mg capsule Take 100 mg by mouth two times a day. - glipiZIDE (GLUCOTROL) 5 mg tablet Take 5 mg by mouth two times a day before meals. - losartan (COZAAR) 100 mg tablet Take 1 tablet by mouth every afternoon. - sertraline (ZOLOFT) 100 mg tablet Take 100 mg by mouth daily at 6 am. [facility] CNTHERAPY OT/PT/Speech Visit (OTNWPH) CABRERA SOTELO ([id number]) 1970 M Date Time Provider Department 08/07/24 1:45 PM [facility] Date [facility] Provider Department Center 08/07/2024 1:45 PM [id number], ABIGAIL [facility] Reason for Visit: Occupational Therapy [504] Primary Visit Diagnosis:Left basal ganglia embolic stroke (HCC) [I63.9] Other Visit Diagnoses:Weakness [R53.1] Lack of coordination [R27.9] Right shoulder pain, unspecified chronicity [M25.511] Subluxation of right shoulder joint, subsequent encounter [S43.001D] Allergies As of Date: 08/07/2024 (No Known Allergies) Date Reviewed: 05/25/2024 Reviewed by: Dolores Rendon MA - Fully Assessed Prescriptions as of 08/07/2024 - rosuvastatin (CRESTOR) 40 mg tablet Take 40 mg by mouth once daily. - MULTIVITAMIN ORAL Take by mouth. - docosahexaenoic acid/epa (FISH OIL ORAL) Take by mouth. - alcohol swabs Apply 1 application to affected area as needed. - atorvastatin (LIPITOR) 10 mg tablet Take 40 mg by mouth once daily. - carvedilol (COREG) 6.25 mg tablet Take 6.25 mg by mouth once daily. - clopidogrel (PLAVIX) 75 mg tablet Take 1 tablet by mouth every afternoon. - furosemide (LASIX) 20 mg tablet Take 1 tablet by mouth every afternoon. - gabapentin (NEURONTIN) 100 mg capsule Take 100 mg by mouth two times a day. - glipiZIDE (GLUCOTROL) 5 mg tablet Take 5 mg by mouth two times a day before meals. - losartan (COZAAR) 100 mg tablet Take 1 tablet by mouth every afternoon. - sertraline (ZOLOFT) 100 mg tablet Take 100 mg by mouth daily at 6 am. [facility] CNTHERAPYon 07-31-2024 CNTHERAPY OT/PT/Speech Visit (PTNEWPHIL) ARISCABRERA B ([id number]) 1970 M Date Time Provider Department 07/31/24 2:45 PM [facility]E [facility] Provider Department [place] 07/31/2024 2:45 PM [id number], DIANA [facility] Reason for Visit: Physical Therapy [503] Primary Visit Diagnosis:Flaccid hemiplegia affecting right dominant side, unspecified etiology ([facility]) [G81.01] Allergies As of Date: 07/31/2024 (No Known Allergies) Date Reviewed: 05/25/2024 Reviewed by: Dolores Rendon MA - Fully Assessed Prescriptions as of 07/31/2024 - rosuvastatin (CRESTOR) 40 mg tablet Take 40 mg by mouth once daily. - MULTIVITAMIN ORAL Take by mouth. - docosahexaenoic acid/epa (FISH OIL ORAL) Take by mouth. - alcohol swabs Apply 1 application to affected area as needed. - atorvastatin (LIPITOR) 10 mg tablet Take 40 mg by mouth once daily. - carvedilol (COREG) 6.25 mg tablet Take 6.25 mg by mouth once daily. - clopidogrel (PLAVIX) 75 mg tablet Take 1 tablet by mouth every afternoon. - furosemide (LASIX) 20 mg tablet Take 1 tablet by mouth every afternoon. - gabapentin (NEURONTIN) 100 mg capsule Take 100 mg by mouth two times a day. - glipiZIDE (GLUCOTROL) 5 mg tablet Take 5 mg by mouth two times a day before meals. - losartan (COZAAR) 100 mg tablet Take 1 tablet by mouth every afternoon. - sertraline (ZOLOFT) 100 mg tablet Take 100 mg by mouth daily at 6 am. Firmware Test Engineer: Therapy (PT/OT/Speech/Resp) ID: [id number] 07/31/2024 3:12 PM Author: OUSMANE PRO Signed by OUSMANE PRO PTA on 07/31/2024 at 3:12 PM Document text: Program_ID:[id number] Access Code: [email or web address] URL: [email or web address] Date: 07-31-2024 Prepared By: CRYSTAL DAI Program Notes Exercises - Seated August - x daily - 7 x weekly - 3 sets - 5-8 reps - Forward and Backward Stepping at Pool Wall - x daily - 7 x weekly - sets - reps - Sitting Knee Extension with Resistance - 1 x daily - 7 x weekly - 2 sets - 10 reps - Seated Long Arc Quad - 1 x daily - 7 x weekly - 2 sets - 10 reps - Supine Quad Set - 1 x daily - 7 x weekly - 2 sets - 10 reps - Standing Terminal Knee Extension with Resistance - 1 x daily - 7 x weekly - 2 sets - 10 reps - Marching with Resistance - 1 x daily - 7 x weekly - 2 sets - 10 reps - Side to Side Weight Shift with Counter Support - 1 x daily - 7 x weekly - 2 sets - 10 reps Patient Education - Adaptive Equipment for Eating - Using a [place] Cuff -------- [facility] CNTHERAPY OT/PT/Speech Visit (OTNWPH) CABRERA SOTELO ([id number]) 1970 M Date Time Provider Department 07/31/24 1:45 PM YANNA DURANT Date Time Provider Department Center 07/31/2024 1:45 PM [id number] [facility] Reason for Visit: Occupational Therapy [504] Primary Visit Diagnosis:Left basal 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 - MULTIVITAMIN ORAL Take by mouth. - docosahexaenoic acid/epa (FISH OIL ORAL) Take by mouth. - alcohol swabs Apply 1 application to affected area as needed. - atorvastatin (LIPITOR) 10 mg tablet Take 40 mg by mouth once daily. - carvedilol (COREG) 6.25 mg tablet Take 6.25 mg by mouth once daily. - clopidogrel (PLAVIX) 75 mg tablet Take 1 tablet by mouth every afternoon. - furosemide (LASIX) 20 mg tablet Take 1 tablet by mouth every afternoon. - gabapentin (NEURONTIN) 100 mg capsule Take 100 mg by mouth two times a day. - glipiZIDE (GLUCOTROL) 5 mg tablet Take 5 mg by mouth two times a day before meals. - losartan (COZAAR) 100 mg tablet Take 1 tablet by mouth every afternoon. - sertraline (ZOLOFT) 100 mg tablet Take 100 mg by mouth daily at 6 am. [facility] THERAPY NTon 07-31-2024 THERAPY NT HNO ID: [id number] Author: OUSMANE PRO PTA Service: ? Author Type: Bookbinder Apprentice Type: Therapy (PT/OT/Speech/Resp) Filed: 07/31/2024 15:12 Note Text: Program_ID:[id number] Access Code: [email or web address] URL: [email or web address] Date: 07-31-2024 Prepared By: CRYSTAL DAI Program Notes Exercises - Seated August - x daily - 7 x weekly - 3 sets - 5-8 reps - Forward and Backward Stepping at Pool Wall - x daily - 7 x weekly - sets - reps - Sitting Knee Extension with Resistance - 1 x daily - 7 x weekly - 2 sets - 10 reps - Seated Long Arc Quad - 1 x daily - 7 x weekly - 2 sets - 10 reps - Supine Quad Set - 1 x daily - 7 x weekly - 2 sets - 10 reps - Standing Terminal Knee Extension with Resistance - 1 x daily - 7 x weekly - 2 sets - 10 reps - Marching with Resistance - 1 x daily - 7 x weekly - 2 sets - 10 reps - Side to Side Weight Shift with Counter Support - 1 x daily - 7 x weekly - 2 sets - 10 reps Patient Education - Adaptive Equipment for Eating - Using a [place] Cuff Normal [facility] CNTHERAPYon 07-26-2024 CNTHERAPY OT/PT/Speech Visit (PTNEWPHIL) CABRERA SOTELO ([id number]) 1970 M Date Time Provider Department 07/26/24 2:45 PM OUSMANE PRO [facility] Date Time Provider Department Center 07/26/2024 2:45 PM [id number], DIANA [facility] Reason for Visit: Physical Therapy [503] Primary Visit Diagnosis:Flaccid hemiplegia affecting right dominant side, unspecified etiology ([facility]) [G81.01] Allergies As of Date: 07/26/2024 (No Known Allergies) Date Reviewed: 05/25/2024 Reviewed by: Dolores Rendon MA - Fully Assessed Prescriptions as of 07/26/2024 - rosuvastatin (CRESTOR) 40 mg tablet Take 40 mg by mouth once daily. - MULTIVITAMIN ORAL Take by mouth. - docosahexaenoic acid/epa (FISH OIL ORAL) Take by mouth. - alcohol swabs Apply 1 application to affected area as needed. - atorvastatin (LIPITOR) 10 mg tablet Take 40 mg by mouth once daily. - carvedilol (COREG) 6.25 mg tablet Take 6.25 mg by mouth once daily. - clopidogrel (PLAVIX) 75 mg tablet Take 1 tablet by mouth every afternoon. - furosemide (LASIX) 20 mg tablet Take 1 tablet by mouth every afternoon. - gabapentin (NEURONTIN) 100 mg capsule Take 100 mg by mouth two times a day. - glipiZIDE (GLUCOTROL) 5 mg tablet Take 5 mg by mouth two times a day before meals. - losartan (COZAAR) 100 mg tablet Take 1 tablet by mouth every afternoon. - sertraline (ZOLOFT) 100 mg tablet Take 100 mg by mouth daily at 6 am. [facility] CNTHERAPY OT/PT/Speech Visit (OTNWPH) CABRERA SOTELO ([id number]) 1970 M Date Time Provider Department 07/26/24 1:45 PM YANNA VANCE [facility] Date Time Provider Department Center 07/26/2024 1:45 PM [id number], HEATHER [facility] Reason for Visit: Occupational Therapy [504] Primary Visit Diagnosis:Left basal ganglia embolic stroke (HCC) [I63.9] Other Visit Diagnoses:Weakness [R53.1] Lack of coordination [R27.9] Right shoulder pain, unspecified chronicity [M25.511] Subluxation of right shoulder joint, subsequent encounter [S43.001D] Allergies As of Date: 07/26/2024 (No Known Allergies) Date Reviewed: 05/25/2024 Reviewed by: Dolores Rendon MA - Fully Assessed Prescriptions as of 07/26/2024 - rosuvastatin (CRESTOR) 40 mg tablet Take 40 mg by mouth once daily. - MULTIVITAMIN ORAL Take by mouth. - docosahexaenoic acid/epa (FISH OIL ORAL) Take by mouth. - alcohol swabs Apply 1 application to affected area as needed. - atorvastatin (LIPITOR) 10 mg tablet Take 40 mg by mouth once daily. - carvedilol (COREG) 6.25 mg tablet Take 6.25 mg by mouth once daily. - clopidogrel (PLAVIX) 75 mg tablet Take 1 tablet by mouth every afternoon. - furosemide (LASIX) 20 mg tablet Take 1 tablet by mouth every afternoon. - gabapentin (NEURONTIN) 100 mg capsule Take 100 mg by mouth two times a day. - glipiZIDE (GLUCOTROL) 5 mg tablet Take 5 mg by mouth two times a day before meals. - losartan (COZAAR) 100 mg tablet Take 1 tablet by mouth every afternoon. - sertraline (ZOLOFT) 100 mg tablet Take 100 mg by mouth daily at 6 am. [facility] THERAPY NTon 07-20-2024 THERAPY NT HNO ID: [id number] Author: YANNA DURANT OTA/L Service: Occupational Therapy Author Type: Dairy Management Specialist Type: Therapy (PT/OT/Speech/Resp) Filed: 07/20/2024 14:19 Note Text: Program_ID:[id number] Access Code: [email or web address] URL: [email or web address] Date: 07-20-2024 Prepared By: CRYSTAL DAI Program Notes Exercises - Seated August - x daily - 7 x weekly - 3 sets - 5-8 reps - Forward and Backward Stepping at Pool Wall - x daily - 7 x weekly - sets - reps Patient Education - Adaptive Equipment for Eating - Using a [place] Cuff [facility] CNTHERAPYon 07-19-2024 CNTHERAPY OT/PT/Speech Visit (PTNEWPHIL) CABRERA SOTELO ([id number]) 1970 M Date Time Provider Department 07/19/24 2:30 PM GAVIN WEINER PTNEWPHIL Date Time Provider Department Center 07/19/2024 2:30 PM [id number] WEINER*[facility] Reason for Visit: Physical Therapy [503] Primary Visit Diagnosis:Flaccid hemiplegia affecting right dominant side, unspecified etiology (HCC) [G81.01] Allergies As of Date: 07/19/2024 (No Known Allergies) Date Reviewed: 05/25/2024 Reviewed by: Dolores Rendon MA - Fully Assessed Prescriptions as of 07/20/2024 - rosuvastatin (CRESTOR) 40 mg tablet Take 40 mg by mouth once daily. - MULTIVITAMIN ORAL Take by mouth. - docosahexaenoic acid/epa (FISH OIL ORAL) Take by mouth. - alcohol swabs Apply 1 application to affected area as needed. - atorvastatin (LIPITOR) 10 mg tablet Take 40 mg by mouth once daily. - carvedilol (COREG) 6.25 mg tablet Take 6.25 mg by mouth once daily. - clopidogrel (PLAVIX) 75 mg tablet Take 1 tablet by mouth every afternoon. - furosemide (LASIX) 20 mg tablet Take 1 tablet by mouth every afternoon. - gabapentin (NEURONTIN) 100 mg capsule Take 100 mg by mouth two times a day. - glipiZIDE (GLUCOTROL) 5 mg tablet Take 5 mg by mouth two times a day before meals. - losartan (COZAAR) 100 mg tablet Take 1 tablet by mouth every afternoon. - sertraline (ZOLOFT) 100 mg tablet Take 100 mg by mouth daily at 6 am. [facility] CNTHERAPY OT/PT/Speech Visit (OTNWPH) CABRERA SOTELO ([id number]) 1970 M Date Time Provider Department 07/19/24 1:45 PM YANNA DURANT [facility] Date Time Provider Department Center 07/19/2024 1:45 PM [id number] Reason for Visit: Occupational Therapy [504] Primary Visit Diagnosis:Left basal ganglia embolic stroke (HCC) [I63.9] Other Visit Diagnoses:Weakness [R53.1] Lack of coordination [R27.9] Right shoulder pain, unspecified chronicity [M25.511] Subluxation of right shoulder joint, subsequent encounter [S43.001D] Allergies As of Date: 07/19/2024 (No Known Allergies) Date Reviewed: 05/25/2024 Reviewed by: Dolores Rendon MA - Fully Assessed Prescriptions as of 07/20/2024 - rosuvastatin (CRESTOR) 40 mg tablet Take 40 mg by mouth once daily. - MULTIVITAMIN ORAL Take by mouth. - docosahexaenoic acid/epa (FISH OIL ORAL) Take by mouth. - alcohol swabs Apply 1 application to affected area as needed. - atorvastatin (LIPITOR) 10 mg tablet Take 40 mg by mouth once daily. - carvedilol (COREG) 6.25 mg tablet Take 6.25 mg by mouth once daily. - clopidogrel (PLAVIX) 75 mg tablet Take 1 tablet by mouth every afternoon. - furosemide (LASIX) 20 mg tablet Take 1 tablet by mouth every afternoon. - gabapentin (NEURONTIN) 100 mg capsule Take 100 mg by mouth two times a day. - glipiZIDE (GLUCOTROL) 5 mg tablet Take 5 mg by mouth two times a day before meals. - losartan (COZAAR) 100 mg tablet Take 1 tablet by mouth every afternoon. - sertraline (ZOLOFT) 100 mg tablet Take 100 mg by mouth daily at 6 am. Firmware Test Engineer: Therapy (PT/OT/Speech/Resp) ID: [id number] 07/20/2024 2:18 PM Author: YANNA DURANT Signed by YANNA DURANT on 07/20/2024 at 2:19 PM Document text: Program_ID:[id number] Access Code: [email or web address] URL: [email or web address] Date: 07-20-2024 Prepared By: CRYSTAL DAI Program Notes Exercises - Seated August - x daily - 7 x weekly - 3 sets - 5-8 reps - Forward and Backward Stepping at Pool Wall - x daily - 7 x weekly - sets - reps Patient Education - Adaptive Equipment for Eating - Using a [place] Cuff -------- [facility] CNTHERAPYon 07-17-2024 CNTHERAPY OT/PT/Speech Visit (PTNEWPHIL) CABRERA SOTELO ([id number]) 1970 M Date Time Provider Department 07/17/24 3:00 PM CRYSTAL DAI [employer] [facility] Date Time Provider Department Center 07/17/2024 3:00 PM [id number], LYDIA [employer] [facility] Reason for Visit: PT Progress Note [5846] Primary Visit Diagnosis:Flaccid hemiplegia affecting right dominant side, unspecified etiology ([facility]) [G81.01] Allergies As of Date: 07/17/2024 (No Known Allergies) Date Reviewed: 05/25/2024 Reviewed by: Dolores Rendon MA - Fully Assessed Prescriptions as of 07/17/2024 - rosuvastatin (CRESTOR) 40 mg tablet Take 40 mg by mouth once daily. - MULTIVITAMIN ORAL Take by mouth. - docosahexaenoic acid/epa (FISH OIL ORAL) Take by mouth. - alcohol swabs Apply 1 application to affected area as needed. - atorvastatin (LIPITOR) 10 mg tablet Take 40 mg by mouth once daily. - carvedilol (COREG) 6.25 mg tablet Take 6.25 mg by mouth once daily. - clopidogrel (PLAVIX) 75 mg tablet Take 1 tablet by mouth every afternoon. - furosemide (LASIX) 20 mg tablet Take 1 tablet by mouth every afternoon. - gabapentin (NEURONTIN) 100 mg capsule Take 100 mg by mouth two times a day. - glipiZIDE (GLUCOTROL) 5 mg tablet Take 5 mg by mouth two times a day before meals. - losartan (COZAAR) 100 mg tablet Take 1 tablet by mouth every afternoon. - sertraline (ZOLOFT) 100 mg tablet Take 100 mg by mouth daily at 6 am. Firmware Test Engineer: Addendum Therapy (PT/OT/Speech/Resp) ID: [id number] 07/17/2024 3:57 PM Author: CRYSTAL DAI Signed by CRYSTAL DAI PT on 07/17/2024 at 3:57 PM * * * This document replaces document [id number] * * * Document text: Program_ID:[id number] Access Code: [email or web address] URL: [email or web address] Date: 07-17-2024 Prepared By: CRYSTAL DAI Program Notes Exercises - Seated August - x daily - 7 x weekly - 3 sets - 5-8 reps - Forward and Backward Stepping at Pool Wall - x daily - 7 x weekly - sets - reps -------- [facility] CNTHERAPY OT/PT/Speech Visit (OTNWPH) CABRERA SOTELO ([id number]) 1970 M Date Time Provider Department 07/17/24 1:45 PM RIVKA NARANJO [facility] Date Time Provider Department [facility] 07/17/2024 1:45 PM [id number], ABIGAIL [facility] Reason for Visit: OT Progress Note [1595] Primary Visit Diagnosis:Left basal ganglia embolic stroke (HCC) [I63.9] Other Visit Diagnoses:Weakness [R53.1] Lack of coordination [R27.9] Right shoulder pain, unspecified chronicity [M25.511] Subluxation of right shoulder joint, subsequent encounter [S43.001D] Allergies As of Date: 07/17/2024 (No Known Allergies) Date Reviewed: 05/25/2024 Reviewed by: Dolores Rendon MA - Fully Assessed Prescriptions as of 07/17/2024 - rosuvastatin (CRESTOR) 40 mg tablet Take 40 mg by mouth once daily. - MULTIVITAMIN ORAL Take by mouth. - docosahexaenoic acid/epa (FISH OIL ORAL) Take by mouth. - alcohol swabs Apply 1 application to affected area as needed. - atorvastatin (LIPITOR) 10 mg tablet Take 40 mg by mouth once daily. - carvedilol (COREG) 6.25 mg tablet Take 6.25 mg by mouth once daily. - clopidogrel (PLAVIX) 75 mg tablet Take 1 tablet by mouth every afternoon. - furosemide (LASIX) 20 mg tablet Take 1 tablet by mouth every afternoon. - gabapentin (NEURONTIN) 100 mg capsule Take 100 mg by mouth two times a day. - glipiZIDE (GLUCOTROL) 5 mg tablet Take 5 mg by mouth two times a day before meals. - losartan (COZAAR) 100 mg tablet Take 1 tablet by mouth every afternoon. - sertraline (ZOLOFT) 100 mg tablet Take 100 mg by mouth daily at 6 am. [facility] THERAPY NTon 07-17-2024 THERAPY NT HNO ID: [id number] Author: CRYSTAL DAI PT Service: ? Author Type: Physical Therapist Type: Therapy (PT/OT/Speech/Resp) Filed: 07/17/2024 15:57 Note Text: Program_ID:[id number] Access Code: [email or web address] URL: [email or web address] Date: 07-17-2024 Prepared By: CRYSTAL DAI Program Notes Exercises - Seated August - x daily - 7 x weekly - 3 sets - 5-8 reps - Forward and Backward Stepping at Pool Wall - x daily - 7 x weekly - sets - reps Normal [facility] CMP with eGFRon 07-16-2024 AGE 53 years Normal [facility] Comment on above: Performed By: #### 2 [id number] #### [facility],[address] [place] [address] 62781 Albumin [Mass/Vol] 3.3 g/dL Low 3.4 - 5.0 [facility] Comment on above: Performed By: #### 2 60113 #### [facility],[address] [place] [address] 59902 Albumin/Globulin [Mass ratio] 0.9 {ratio} Normal 0.9 - 1.6 [facility] Comment on above: Performed By: #### 2 33405 #### [facility],[address] [place] [address] 23251 ALK PHOS 107 U/L Normal 46 - 116 [facility] Comment on above: Performed By: #### 2 33017 #### [facility],[address] [place] [address] 45153 ALT [Catalytic activity/Vol] 82 U/L High 16 - 63 [facility] Comment on above: Performed By: #### 2 39230 #### [facility],[address] [place] [address] 65269 Anion gap [Moles/Vol] 11 mmol/L Normal 10 - 20 [facility] Comment on above: Performed By: #### 2 81229 #### [facility],[address] [place] [address] 81904 AST [Catalytic activity/Vol] 38 U/L High 15 - 37 [facility] Comment on above: Performed By: #### 2 70449 #### [facility],[address] [place] [address] 28988 B/C RATIO 30 ratio Normal 0 - 30 [facility] Comment on above: Performed By: #### 2 98844 #### [facility],[address] [place] [address] 50996 Bilirubin [Mass/Vol] 0.2 mg/dL Normal 0.2 - 1.0 [facility] Comment on above: Performed By: #### 2 95794 #### [facility],[address] [place] [address] 43071 Calcium [Mass/Vol] 9.3 mg/dL Normal 8.5 - 10.1 [facility] Comment on above: Performed By: #### 2 82234 #### [facility],[address] [place] [address] 08896 Chloride [Moles/Vol] 110 mmol/L High 98 - 107 [facility] Comment on above: Performed By: #### 2 09880 #### [facility],[address] [place] [address] 60055 CMP with eGFR Normal [facility] Comment on above: Result Comment: COMP REHENSIVE METABOLIC PANEL Performed By: #### 2 37186 #### [facility],[address] [place] [address] 95724 CO2 [Moles/Vol] 30.0 mmol/L Normal 21.0 - 32.0 [facility] Comment on above: Performed By: #### 2 48589 #### [facility],[address] [place] [address] 19610 Creatinine [Mass/Vol] 0.83 mg/dL Normal 0.70 - 1.30 [facility] Comment on above: Performed By: #### 2 37990 #### [facility],[address] [place] [address] 37501 GFR/1.73 sq M.predicted among non-blacks MDRD (S/P/Bld) [Vol rate/Area] mL/min/{1.73_m2} Normal 60 - 999 [facility] Comment on above: Performed By: #### 2 59316 #### [facility],[address] [place] [address] 06513 Result Comment: ACCO RDING TO THE NATIONAL KIDNEY DISEASE EDUCATION PROGRAM(NKDE), A NORMAL eGFR IS A VALUE GREATER THAN OR EQUAL TO 60 ML/MIN/1.73 SQ METERS. CHRONIC KIDNEY DISEASE: <60mL/MIN/1.73 SQ METERS KIDNEY FAILURE: <15mL/MIN/1.73 SQ METERS THIS TEST SHOULD ONLY BE USED FOR PATIENTS 18 YEARS OF AGE AND OLDER. Globulin (S) [Mass/Vol] 3.7 g/dL Normal 1.5 - 3.8 [facility] Comment on above: Performed By: #### 2 72233 #### [address] [address] Glucose [Mass/Vol] 75 mg/dL Normal 74 - 106 [facility] Comment on above: Performed By: #### 2 48737 #### [address] [address] Potassium [Moles/Vol] 4.0 mmol/L Normal 3.5 - 5.1 [facility] Comment on above: Performed By: #### 2 53131 #### [address] [address] Protein [Mass/Vol] 7.0 g/dL Normal 6.4 - 8.2 [facility] Comment on above: Performed By: #### 2 52507 #### [address] [address] Sodium [Moles/Vol] 147 mmol/L High 136 - 145 [facility] Comment on above: Performed By: #### 2 09419 #### [facility],[address] [place] [address] Urea nitrogen [Mass/Vol] 25 mg/dL High 7 - 18 [facility] Comment on above: Performed By: #### 2 43687 #### [facility],[address] [place] [address] HEMOGLOBIN A1C (POM)on 07-16 Glucose [Mass/Vol] 105.4 mg/dL High 0.0 - 0.0 [facility] Comment on above: Result Comment: BLDo HEMOGLOBIN A1C REFERENCE RANGESBLDo Suggested Diagnosis HbA1c(%) HbA1C (mmol/mol Diabetic >/=6.5 >/=48 Prediabetes 5.7 - 6.4 39 - 47 Normal <5.7 <39 Performed By: #### 2 90412 #### [facility],[address] [place] [address] HbA1c (Bld) [Mass fraction] 5.3 % Normal 0.0 - 6.5 [facility] Comment on above: Performed By: #### 2 39117 #### [facility],[address] [place] [address] LIPID PROFILEon 07-16-2024 Cholesterol [Mass/Vol] 95 mg/dL Normal 0 - 240 [facility] Comment on above: Performed By: #### 2 02145 #### [facility],[address] [place] [address] Cholesterol in HDL [Mass/Vol] 36 mg/dL Low 40 - 60 [facility] Comment on above: Performed By: #### 2 66807 #### [facility],[address] [place] [address] Cholesterol in LDL [Mass/Vol] 39 mg/dL Normal 0 - 129 [facility] Comment on above: Performed By: #### 2 89579 #### [facility],[address] [place] [address] Cholesterol.total/Cho lesterol in HDL [Mass ratio] 2.6 {ratio} Normal 0.0 - 5.0 [facility] Comment on above: Performed By: #### 2 98550 #### [facility],[address] [place], [place] [id number] Lipid 1996 panel Normal [facility] Comment on above: Result Comment: LIPI D PROFILE Performed By: #### 2 00101 #### [facility],[address] [place] [address] Triglyceride [Mass/Vol] 101 mg/dL Normal 0 - 150 [facility] Comment on above: Performed By: #### 2 56276 #### [facility],[address] [place], [place] [id number] CNTHERAPYon 07-12-2024 CNTHERAPY OT/PT/Speech Visit (PTNEWPHI) CABRERA SOTELO ([id number]) 1970 M Date Time Provider Department 07/12/24 2:30 PM GAVIN WEINER [facility] Date Time Provider Department [place] 07/12/2024 2:30 PM [id number] WEINER*[facility] P Reason for Visit: Physical Therapy [503] Primary Visit Diagnosis:Flaccid hemiplegia affecting right dominant side, unspecified etiology ([facility]) [G81.01] Allergies As of Date: 07/12/2024 (No Known Allergies) Date Reviewed: 05/25/2024 Reviewed by: Dolores Rendon MA - Fully Assessed Prescriptions as of 07/14/2024 - rosuvastatin (CRESTOR) 40 mg tablet Take 40 mg by mouth once daily. - MULTIVITAMIN ORAL Take by mouth. - docosahexaenoic acid/epa (FISH OIL ORAL) Take by mouth. - alcohol swabs Apply 1 application to affected area as needed. - atorvastatin (LIPITOR) 10 mg tablet Take 40 mg by mouth once daily. - carvedilol (COREG) 6.25 mg tablet Take 6.25 mg by mouth once daily. - clopidogrel (PLAVIX) 75 mg tablet Take 1 tablet by mouth every afternoon. - furosemide (LASIX) 20 mg tablet Take 1 tablet by mouth every afternoon. - gabapentin (NEURONTIN) 100 mg capsule Take 100 mg by mouth two times a day. - glipiZIDE (GLUCOTROL) 5 mg tablet Take 5 mg by mouth two times a day before meals. - losartan (COZAAR) 100 mg tablet Take 1 tablet by mouth every afternoon. - sertraline (ZOLOFT) 100 mg tablet Take 100 mg by mouth daily at 6 am. [facility] CNTHERAPY OT/PT/Speech Visit (OTNWPH) CABRERA SOTELO ([id number]) 1970 M Date Time Provider Department 07/12/24 1:45 PM YANNA DURANT [facility] Date Time Provider Department Center 07/12/2024 1:45 PM [id number], [facility] Reason for Visit: Occupational Therapy [504] Primary Visit Diagnosis:Left basal ganglia embolic stroke (HCC) [I63.9] Other Visit Diagnoses:Weakness [R53.1] Lack of coordination [R27.9] Right shoulder pain, unspecified chronicity [M25.511] Subluxation of right shoulder joint, subsequent encounter [S43.001D] Allergies As of Date: 07/12/2024 (No Known Allergies) Date Reviewed: 05/25/2024 Reviewed by: Dolores Rendon MA - Fully Assessed Prescriptions as of 07/13/2024 - rosuvastatin (CRESTOR) 40 mg tablet Take 40 mg by mouth once daily. - MULTIVITAMIN ORAL Take by mouth. - docosahexaenoic acid/epa (FISH OIL ORAL) Take by mouth. - alcohol swabs Apply 1 application to affected area as needed. - atorvastatin (LIPITOR) 10 mg tablet Take 40 mg by mouth once daily. - carvedilol (COREG) 6.25 mg tablet Take 6.25 mg by mouth once daily. - clopidogrel (PLAVIX) 75 mg tablet Take 1 tablet by mouth every afternoon. - furosemide (LASIX) 20 mg tablet Take 1 tablet by mouth every afternoon. - gabapentin (NEURONTIN) 100 mg capsule Take 100 mg by mouth two times a day. - glipiZIDE (GLUCOTROL) 5 mg tablet Take 5 mg by mouth two times a day before meals. - losartan (COZAAR) 100 mg tablet Take 1 tablet by mouth every afternoon. - sertraline (ZOLOFT) 100 mg tablet Take 100 mg by mouth daily at 6 am. Firmware Test Engineer: Addendum Therapy (PT/OT/Speech/Resp) ID: [id number] 07/12/2024 3:38 PM Author: YANNA DURANT Signed by YANNA DURANT on 07/12/2024 at 3:38 PM * * * This document replaces document [id number] * * * Document text: Program_ID:[id number] Access Code: [email or web address] URL: [email or web address] Date: 07-12-2024 Prepared By: YANNA DURANT Program Notes Exercises - Seated Scapular Retraction - 1 x daily - 5 x weekly - 1 sets - 10 reps - Seated Shoulder Shrug Circles AROM Backward - 1 x daily - 5 x weekly - 1 sets - 10 reps - Supine Shoulder Flexion AAROM with Hands Clasped - 1 x daily - 7 x weekly - 3 sets - 10 reps - Seated Elbow Extension and Shoulder External Rotation AAROM at Table with Towel - 1 x daily - 7 x weekly - 3 sets - 10 reps - Seated Isometric Elbow Flexion - 1 x daily - 7 x weekly - 3 sets - 10 reps - Wrist Extension Stretch Supinated - 1 x daily - 7 x weekly - 3 sets - 10 reps - Finger Flexion with Wrist Extension Caregiver PROM - 1 x daily - 7 x weekly - 3 sets - 10 reps - Finger Flexion with Wrist Extension Caregiver PROM - 1 x daily - 7 x weekly - 3 sets - 10 reps - Supine Shoulder Flexion AAROM with Hands Clasped - 1 x daily - 7 x weekly - 3 sets - 10 reps - Supine Shoulder Flexion PROM - 1 x daily - 7 x weekly - 3 sets - 10 reps - Seated Wrist Flexion Stretch - 1 x daily - 7 x weekly - 3 sets - 10 reps - Seated Wrist Extension Stretch - 1 x daily - 7 x weekly - 3 sets - 10 reps - Seated Flexion Stretch with Colombian Ball - 1 x daily - 7 x weekly - 3 sets - 10 reps - Seated 3 Way Exercise Ball Roll Out Stretch - 1 x daily - 7 x weekly - 3 sets - 10 reps Patient Education - Tips for Caregivers: Managing Shoulder Subluxation and Preventing Injuries During Movement - Heat - Ice -------- [facility] THERAPY NTon 07-12-2024 THERAPY NT HNO ID: [id number] Author: YANNA DURANT OTA/L Service: Occupational Therapy Author Type: Dairy Management Specialist Type: Therapy (PT/OT/Speech/Resp) Filed: 07/12/2024 15:38 Note Text: Program_ID:[id number] Access Code: [email or web address] URL: [email or web address] Date: 07-12-2024 Prepared By: YANNA DURANT Program Notes Exercises - Seated Scapular Retraction - 1 x daily - 5 x weekly - 1 sets - 10 reps - Seated Shoulder Shrug Circles AROM Backward - 1 x daily - 5 x weekly - 1 sets - 10 reps - Supine Shoulder Flexion AAROM with Hands Clasped - 1 x daily - 7 x weekly - 3 sets - 10 reps - Seated Elbow Extension and Shoulder External Rotation AAROM at Table with Towel - 1 x daily - 7 x weekly - 3 sets - 10 reps - Seated Isometric Elbow Flexion - 1 x daily - 7 x weekly - 3 sets - 10 reps - Wrist Extension Stretch Supinated - 1 x daily - 7 x weekly - 3 sets - 10 reps - Finger Flexion with Wrist Extension Caregiver PROM - 1 x daily - 7 x weekly - 3 sets - 10 reps - Finger Flexion with Wrist Extension Caregiver PROM - 1 x daily - 7 x weekly - 3 sets - 10 reps - Supine Shoulder Flexion AAROM with Hands Clasped - 1 x daily - 7 x weekly - 3 sets - 10 reps - Supine Shoulder Flexion PROM - 1 x daily - 7 x weekly - 3 sets - 10 reps - Seated Wrist Flexion Stretch - 1 x daily - 7 x weekly - 3 sets - 10 reps - Seated Wrist Extension Stretch - 1 x daily - 7 x weekly - 3 sets - 10 reps - Seated Flexion Stretch with Colombian Ball - 1 x daily - 7 x weekly - 3 sets - 10 reps - Seated 3 Way Exercise Ball Roll Out Stretch - 1 x daily - 7 x weekly - 3 sets - 10 reps Patient Education - Tips for Caregivers: Managing Shoulder Subluxation and Preventing Injuries During Movement - Heat - Ice [facility] CNTHERAPYon 07-10-2024 CNTHERAPY OT/PT/Speech Visit (PTNEWPHIL) CABRERA SOTELO ([id number]) 1970 M Date Time Provider Department 07/10/24 2:45 PM [facility] Provider Department Center 07/10/2024 2:45 PM [id number], DIANA [facility] Reason for Visit: Physical Therapy [503] Primary Visit Diagnosis:Flaccid hemiplegia affecting right dominant side, unspecified etiology ([facility]) [G81.01] Allergies As of Date: 07/10/2024 (No Known Allergies) Date Reviewed: 05/25/2024 Reviewed by: Dolores Rendon MA - Fully Assessed Prescriptions as of 07/10/2024 - rosuvastatin (CRESTOR) 40 mg tablet Take 40 mg by mouth once daily. - MULTIVITAMIN ORAL Take by mouth. - docosahexaenoic acid/epa (FISH OIL ORAL) Take by mouth. - alcohol swabs Apply 1 application to affected area as needed. - atorvastatin (LIPITOR) 10 mg tablet Take 40 mg by mouth once daily. - carvedilol (COREG) 6.25 mg tablet Take 6.25 mg by mouth once daily. - clopidogrel (PLAVIX) 75 mg tablet Take 1 tablet by mouth every afternoon. - furosemide (LASIX) 20 mg tablet Take 1 tablet by mouth every afternoon. - gabapentin (NEURONTIN) 100 mg capsule Take 100 mg by mouth two times a day. - glipiZIDE (GLUCOTROL) 5 mg tablet Take 5 mg by mouth two times a day before meals. - losartan (COZAAR) 100 mg tablet Take 1 tablet by mouth every afternoon. - sertraline (ZOLOFT) 100 mg tablet Take 100 mg by mouth daily at 6 am. [facility] CNTHERAPY OT/PT/Speech Visit (OTNWPH) CABRERA SOTELO ([id number]) 1970 M Date Time Provider Department 07/10/24 1:45 PM YANNA DURANT [facility] Date Time Provider Department Center 07/10/2024 1:45 PM [id number], HEATHER [facility] Reason for Visit: Occupational Therapy [504] Primary Visit Diagnosis:Left basal ganglia embolic stroke (HCC) [I63.9] Other Visit Diagnoses:Weakness [R53.1] Lack of coordination [R27.9] Right shoulder pain, unspecified chronicity [M25.511] Subluxation of right shoulder joint, subsequent encounter [S43.001D] Allergies As of Date: 07/10/2024 (No Known Allergies) Date Reviewed: 05/25/2024 Reviewed by: Dolores Rendon MA - Fully Assessed Prescriptions as of 07/10/2024 - rosuvastatin (CRESTOR) 40 mg tablet Take 40 mg by mouth once daily. - MULTIVITAMIN ORAL Take by mouth. - docosahexaenoic acid/epa (FISH OIL ORAL) Take by mouth. - alcohol swabs Apply 1 application to affected area as needed. - atorvastatin (LIPITOR) 10 mg tablet Take 40 mg by mouth once daily. - carvedilol (COREG) 6.25 mg tablet Take 6.25 mg by mouth once daily. - clopidogrel (PLAVIX) 75 mg tablet Take 1 tablet by mouth every afternoon. - furosemide (LASIX) 20 mg tablet Take 1 tablet by mouth every afternoon. - gabapentin (NEURONTIN) 100 mg capsule Take 100 mg by mouth two times a day. - glipiZIDE (GLUCOTROL) 5 mg tablet Take 5 mg by mouth two times a day before meals. - losartan (COZAAR) 100 mg tablet Take 1 tablet by mouth every afternoon. - sertraline (ZOLOFT) 100 mg tablet Take 100 mg by mouth daily at 6 am. [facility] THERAPY NTon 07-06-2024 THERAPY NT HNO ID: [id number] Author: YANNA DURANT OTA/L Service: Occupational Therapy Author Type: Dairy Management Specialist Type: Therapy (PT/OT/Speech/Resp) Filed: 07/06/2024 13:52 Note Text: Program_ID:[id number] Access Code: [email or web address] URL: [email or web address] Date: 07-06-2024 Prepared By: YANNA DURANT Program Notes Exercises - Seated Scapular Retraction - 1 x daily - 5 x weekly - 1 sets - 10 reps - Seated Shoulder Shrug Circles AROM Backward - 1 x daily - 5 x weekly - 1 sets - 10 reps - Supine Shoulder Flexion AAROM with Hands Clasped - 1 x daily - 7 x weekly - 3 sets - 10 reps - Seated Elbow Extension and Shoulder External Rotation AAROM at Table with Towel - 1 x daily - 7 x weekly - 3 sets - 10 reps - Seated Isometric Elbow Flexion - 1 x daily - 7 x weekly - 3 sets - 10 reps - Wrist Extension Stretch Supinated - 1 x daily - 7 x weekly - 3 sets - 10 reps - Finger Flexion with Wrist Extension Caregiver PROM - 1 x daily - 7 x weekly - 3 sets - 10 reps - Finger Flexion with Wrist Extension Caregiver PROM - 1 x daily - 7 x weekly - 3 sets - 10 reps - Supine Shoulder Flexion AAROM with Hands Clasped - 1 x daily - 7 x weekly - 3 sets - 10 reps - Supine Shoulder Flexion PROM - 1 x daily - 7 x weekly - 3 sets - 10 reps - Seated Wrist Flexion Stretch - 1 x daily - 7 x weekly - 3 sets - 10 reps - Seated Wrist Extension Stretch - 1 x daily - 7 x weekly - 3 sets - 10 reps Patient Education - Tips for Caregivers: Managing Shoulder Subluxation and Preventing Injuries During Movement - Heat - Ice [facility] CNTHERAPYon 07-03-2024 CNTHERAPY OT/PT/Speech Visit (PTNEWPHIL) CABRERA SOTELO ([id number]) 1970 M Date Time Provider Department 07/03/24 2:45 PM SHEEBA OUSMANE [employer] Date Time Provider Department Center 07/03/2024 2:45 PM [id number] Andro[employer] Cyrba [facility] Reason for Visit: Physical Therapy [503] Primary Visit Diagnosis:Flaccid hemiplegia affecting right dominant side, unspecified etiology ([facility]) [G81.01] Allergies As of Date: 07/03/2024 (No Known Allergies) Date Reviewed: 05/25/2024 Reviewed by: Dolores Rendon MA - Fully Assessed Prescriptions as of 07/03/2024 - rosuvastatin (CRESTOR) 40 mg tablet Take 40 mg by mouth once daily. - MULTIVITAMIN ORAL Take by mouth. - docosahexaenoic acid/epa (FISH OIL ORAL) Take by mouth. - alcohol swabs Apply 1 application to affected area as needed. - atorvastatin (LIPITOR) 10 mg tablet Take 40 mg by mouth once daily. - carvedilol (COREG) 6.25 mg tablet Take 6.25 mg by mouth once daily. - clopidogrel (PLAVIX) 75 mg tablet Take 1 tablet by mouth every afternoon. - furosemide (LASIX) 20 mg tablet Take 1 tablet by mouth every afternoon. - gabapentin (NEURONTIN) 100 mg capsule Take 100 mg by mouth two times a day. - glipiZIDE (GLUCOTROL) 5 mg tablet Take 5 mg by mouth two times a day before meals. - losartan (COZAAR) 100 mg tablet Take 1 tablet by mouth every afternoon. - sertraline (ZOLOFT) 100 mg tablet Take 100 mg by mouth daily at 6 am. [facility] CNTHERAPY OT/PT/Speech Visit (OTNWPH) CABRERA SOTELO ([id number]) 1970 M Date Time Provider Department 07/03/24 1:45 PM PRABHAKAR YANNA [facility] Date Time Provider Department Center 07/03/2024 1:45 PM [id number] [facility] Reason for Visit: Occupational Therapy [504] Primary Visit Diagnosis:Left basal ganglia embolic stroke (HCC) [I63.9] Other Visit Diagnoses:Weakness [R53.1] Lack of coordination [R27.9] Right shoulder pain, unspecified chronicity [M25.511] Subluxation of right shoulder joint, subsequent encounter [S43.001D] Allergies As of Date: 07/03/2024 (No Known Allergies) Date Reviewed: 05/25/2024 Reviewed by: Dolores Rendon MA - Fully Assessed Prescriptions as of 07/06/2024 - rosuvastatin (CRESTOR) 40 mg tablet Take 40 mg by mouth once daily. - MULTIVITAMIN ORAL Take by mouth. - docosahexaenoic acid/epa (FISH OIL ORAL) Take by mouth. - alcohol swabs Apply 1 application to affected area as needed. - atorvastatin (LIPITOR) 10 mg tablet Take 40 mg by mouth once daily. - carvedilol (COREG) 6.25 mg tablet Take 6.25 mg by mouth once daily. - clopidogrel (PLAVIX) 75 mg tablet Take 1 tablet by mouth every afternoon. - furosemide (LASIX) 20 mg tablet Take 1 tablet by mouth every afternoon. - gabapentin (NEURONTIN) 100 mg capsule Take 100 mg by mouth two times a day. - glipiZIDE (GLUCOTROL) 5 mg tablet Take 5 mg by mouth two times a day before meals. - losartan (COZAAR) 100 mg tablet Take 1 tablet by mouth every afternoon. - sertraline (ZOLOFT) 100 mg tablet Take 100 mg by mouth daily at 6 am. Firmware Test Engineer: Therapy (PT/OT/Speech/Resp) ID: [id number] 07/06/2024 1:52 PM Author: YANNA DURANT Signed by YANNA DURANT on 07/06/2024 at 1:52 PM Document text: Program_ID:[id number] Access Code: [email or web address] URL: [email or web address] Date: 07-06-2024 Prepared By: YANNA DURATN Program Notes Exercises - Seated Scapular Retraction - 1 x daily - 5 x weekly - 1 sets - 10 reps - Seated Shoulder Shrug Circles AROM Backward - 1 x daily - 5 x weekly - 1 sets - 10 reps - Supine Shoulder Flexion AAROM with Hands Clasped - 1 x daily - 7 x weekly - 3 sets - 10 reps - Seated Elbow Extension and Shoulder External Rotation AAROM at Table with Towel - 1 x daily - 7 x weekly - 3 sets - 10 reps - Seated Isometric Elbow Flexion - 1 x daily - 7 x weekly - 3 sets - 10 reps - Wrist Extension Stretch Supinated - 1 x daily - 7 x weekly - 3 sets - 10 reps - Finger Flexion with Wrist Extension Caregiver PROM - 1 x daily - 7 x weekly - 3 sets - 10 reps - Finger Flexion with Wrist Extension Caregiver PROM - 1 x daily - 7 x weekly - 3 sets - 10 reps - Supine Shoulder Flexion AAROM with Hands Clasped - 1 x daily - 7 x weekly - 3 sets - 10 reps - Supine Shoulder Flexion PROM - 1 x daily - 7 x weekly - 3 sets - 10 reps - Seated Wrist Flexion Stretch - 1 x daily - 7 x weekly - 3 sets - 10 reps - Seated Wrist Extension Stretch - 1 x daily - 7 x weekly - 3 sets - 10 reps Patient Education - Tips for Caregivers: Managing Shoulder Subluxation and Preventing Injuries During Movement - Heat - Ice -------- Normal [facility] CNTHERAPYon 06-28-2024 CNTHERAPY OT[facility] CABRERA SOTELO ([id number]) 1970 M Date Time Provider Department 06/28/24 2:30 PM GAVIN WEINER [facility] Date Time Provider Department Center 06/28/2024 2:30 PM [id number] WEINER*[facility] P Reason for Visit: Physical Therapy [503] Primary Visit Diagnosis:Flaccid hemiplegia affecting right dominant side, unspecified etiology ([facility]) [G81.01] Allergies As of Date: 06/28/2024 (No Known Allergies) Date Reviewed: 05/25/2024 Reviewed by: Dolores Rendon MA - Fully Assessed Prescriptions as of 06/29/2024 - rosuvastatin (CRESTOR) 40 mg tablet Take 40 mg by mouth once daily. - MULTIVITAMIN ORAL Take by mouth. - docosahexaenoic acid/epa (FISH OIL ORAL) Take by mouth. - alcohol swabs Apply 1 application to affected area as needed. - atorvastatin (LIPITOR) 10 mg tablet Take 40 mg by mouth once daily. - carvedilol (COREG) 6.25 mg tablet Take 6.25 mg by mouth once daily. - clopidogrel (PLAVIX) 75 mg tablet Take 1 tablet by mouth every afternoon. - furosemide (LASIX) 20 mg tablet Take 1 tablet by mouth every afternoon. - gabapentin (NEURONTIN) 100 mg capsule Take 100 mg by mouth two times a day. - glipiZIDE (GLUCOTROL) 5 mg tablet Take 5 mg by mouth two times a day before meals. - losartan (COZAAR) 100 mg tablet Take 1 tablet by mouth every afternoon. - sertraline (ZOLOFT) 100 mg tablet Take 100 mg by mouth daily at 6 am. [facility] CNTHERAPY OT/PT/Speech Visit (OTNWPH) CABRERA SOTELO ([id number]) 1970 M Date Time Provider Department 06/28/24 1:45 PM YANNA DURANT [facility] Date Time Provider Department Center 06/28/2024 1:45 PM [id number], [facility] Reason for Visit: Occupational Therapy [504] Primary Visit Diagnosis:Left basal ganglia embolic stroke (HCC) [I63.9] Other Visit Diagnoses:Weakness [R53.1] Lack of coordination [R27.9] Right shoulder pain, unspecified chronicity [M25.511] Subluxation of right shoulder joint, subsequent encounter [S43.001D] Allergies As of Date: 06/28/2024 (No Known Allergies) Date Reviewed: 05/25/2024 Reviewed by: Dolores Rendon MA - Fully Assessed Prescriptions as of 07/06/2024 - rosuvastatin (CRESTOR) 40 mg tablet Take 40 mg by mouth once daily. - MULTIVITAMIN ORAL Take by mouth. - docosahexaenoic acid/epa (FISH OIL ORAL) Take by mouth. - alcohol swabs Apply 1 application to affected area as needed. - atorvastatin (LIPITOR) 10 mg tablet Take 40 mg by mouth once daily. - carvedilol (COREG) 6.25 mg tablet Take 6.25 mg by mouth once daily. - clopidogrel (PLAVIX) 75 mg tablet Take 1 tablet by mouth every afternoon. - furosemide (LASIX) 20 mg tablet Take 1 tablet by mouth every afternoon. - gabapentin (NEURONTIN) 100 mg capsule Take 100 mg by mouth two times a day. - glipiZIDE (GLUCOTROL) 5 mg tablet Take 5 mg by mouth two times a day before meals. - losartan (COZAAR) 100 mg tablet Take 1 tablet by mouth every afternoon. - sertraline (ZOLOFT) 100 mg tablet Take 100 mg by mouth daily at 6 am. [facility] [id number] 06-20-2024 [id number] O ID: [id number] Author: CRYSTAL DAI PT Service: ? Author Type: Physical Therapist Type: [id number] Filed: 06/20/2024 13:18 Note Text: [facility] Physical Therapy Plan of Care Certification Patient Name: Cabrera Sotelo : 1970 [facility] #: [id number] Date: 06/19/2024 To: Martita Ervin MD From Therapist: Crystal Dai PT RE: Patient Certification/ Recertification Your review, approval and electronic signature are required in order to comply with Payor: MEDICARE / Plan: MEDICARE A AND B / Product Type: Medicare / regulations. The identified Physical Therapy PLAN OF CARE for the patient is as follows: G81.01 Flaccid hemiplegia affecting right dominant side, unspecified etiology (HCC) (primary encounter diagnosis) PLAN OF CARE: Assessment: Cabrera Sotelo presents with diagnosis of hemiplegia post stoke that interferes with (walking, getting in bed (must use a bar), hasn't tried getting back on his motorcycle + he's concerned about steering) . The patient presents with impairments in balance, flexibility, gait, independence in exercise, overall function, strength, symptom management, and edema. PROMIS? (Patient-Reported Outcomes Measurement Information System) scores were reviewed and identified as a rehabilitation concern. Prognosis for therapy is Fair due to: (chronicity) fair based on chronicity . The patient will benefit from skilled therapy services to meet the goals established for this plan of care as noted below. Classification Diagnosis Grouping: CVA Goals for Episode of Care: established 06/19/24 Patient will increase strength of LE +1/2 m. grade to allow patient to improved ease of bed mobility; push through to gait speed. Patient will ambulate 400 feet with LBQC Left with stand by assist on level ground. Patient will demonstrate current home exercise program independently. Patient will improve distance on 2 minute walk test by 40 feet (=98) to increase endurance for household and community ambulation. Patient Goals: walk without a cane; ultimately he would like to return to riding his 3 lau; wants to rebuild a motorcycle that's been put on hold (states that he realizes it wouldn't be safe to drive with visual changes and reaction times) Time Frame for Goals and Treatment : 09/18/24 Planned Interventions, Frequency, and Duration: Current Frequency: (1-2) Duration: (8-12 weeks) Total Number of Visits Planned: (8-24) Planned Treatment Interventions: Therapeutic exercise (78082), Neuromuscular re-education (56758), Manual therapy (55236), Therapeutic activities (97776), Self-fdc management (24405), Gait Training (18952), Patient/Family/Careg iver Education, Body Mechanics Training, Functional training, General Conditioning, E-Stim Attended/TENS (21133) (could trial NMES) PLAN FOR NEXT VISIT: balance training, gait training, trial NMES on distal LE musculature Patient demonstrates good understanding of plan of care and treatment. The above goals and plan of care were discussed and agreed upon by patient/family. For further details regarding this patient refer to the Physical Therapy electronically documented visit dated 06/19/2024. Provider Attestation I have reviewed the treatment plan for Cabrera Sotelo, [facility]# [id number] for the period of 06/20/25 -- 09/07/24, established on 06/19/2024. Signature certifies the need for therapy services. [facility] CNTHERAPYon 06-19-2024 CNTHERAPY OT/PT/Speech Visit (PTNEWPHIL) CABRERA SOTELO ([id number]) 1970 M Date Time Provider Department 06/19/24 3:00 PM MALAIKAARGELIA DONGSUNI THAYER Date Time Provider Department Center 06/19/2024 3:00 PM [id number][facility] Reason for Visit: PT Nathalia [747] Primary Visit Diagnosis:Flaccid hemiplegia affecting right dominant side, unspecified etiology ([facility]) [G81.01] Allergies As of Date: 06/19/2024 (No Known Allergies) Date Reviewed: 05/25/2024 Reviewed by: Dolores Rendon MA - Fully Assessed Prescriptions as of 07/14/2024 - rosuvastatin (CRESTOR) 40 mg tablet Take 40 mg by mouth once daily. - MULTIVITAMIN ORAL Take by mouth. - docosahexaenoic acid/epa (FISH OIL ORAL) Take by mouth. - alcohol swabs Apply 1 application to affected area as needed. - atorvastatin (LIPITOR) 10 mg tablet Take 40 mg by mouth once daily. - carvedilol (COREG) 6.25 mg tablet Take 6.25 mg by mouth once daily. - clopidogrel (PLAVIX) 75 mg tablet Take 1 tablet by mouth every afternoon. - furosemide (LASIX) 20 mg tablet Take 1 tablet by mouth every afternoon. - gabapentin (NEURONTIN) 100 mg capsule Take 100 mg by mouth two times a day. - glipiZIDE (GLUCOTROL) 5 mg tablet Take 5 mg by mouth two times a day before meals. - losartan (COZAAR) 100 mg tablet Take 1 tablet by mouth every afternoon. - sertraline (ZOLOFT) 100 mg tablet Take 100 mg by mouth daily at 6 am. Letter Text [facility] CNTHERAPY OT/PT/Speech Visit (OTNWPH) CABRERA SOTELO ([id number]) 1970 M Date Time Provider Department 06/19/24 1:45 PM [facility] Time Provider Department Center 06/19/2024 1:45 PM [id number], ABIGAIL [facility] Reason for Visit: OT Progress Note [1595] Primary Visit Diagnosis:Left basal ganglia embolic stroke (HCC) [I63.9] Other Visit Diagnoses:Weakness [R53.1] Lack of coordination [R27.9] Right shoulder pain, unspecified chronicity [M25.511] Subluxation of right shoulder joint, subsequent encounter [S43.001D] Allergies As of Date: 06/19/2024 (No Known Allergies) Date Reviewed: 05/25/2024 Reviewed by: Dolores Rendon MA - Fully Assessed Prescriptions as of 07/14/2024 - rosuvastatin (CRESTOR) 40 mg tablet Take 40 mg by mouth once daily. - MULTIVITAMIN ORAL Take by mouth. - docosahexaenoic acid/epa (FISH OIL ORAL) Take by mouth. - alcohol swabs Apply 1 application to affected area as needed. - atorvastatin (LIPITOR) 10 mg tablet Take 40 mg by mouth once daily. - carvedilol (COREG) 6.25 mg tablet Take 6.25 mg by mouth once daily. - clopidogrel (PLAVIX) 75 mg tablet Take 1 tablet by mouth every afternoon. - furosemide (LASIX) 20 mg tablet Take 1 tablet by mouth every afternoon. - gabapentin (NEURONTIN) 100 mg capsule Take 100 mg by mouth two times a day. - glipiZIDE (GLUCOTROL) 5 mg tablet Take 5 mg by mouth two times a day before meals. - losartan (COZAAR) 100 mg tablet Take 1 tablet by mouth every afternoon. - sertraline (ZOLOFT) 100 mg tablet Take 100 mg by mouth daily at 6 am. [facility] CNTHERAPYon 06-12-2024 CNTHERAPY OT/PT/Speech Visit (OTNWPH) CABRERA SOTELO ([id number]) 1970 M Date Time Provider Department 06/12/24 1:45 PM PRABHAKAR, YANNA [facility] Date Time Provider Department [facility] 06/12/2024 1:45 PM [id number], HEATHER [facility] Reason for Visit: Occupational Therapy [504] Primary Visit Diagnosis:Left basal ganglia embolic stroke (HCC) [I63.9] Other Visit Diagnoses:Weakness [R53.1] Lack of coordination [R27.9] Right shoulder pain, unspecified chronicity [M25.511] Subluxation of right shoulder joint, subsequent encounter [S43.001D] Allergies As of Date: 06/12/2024 (No Known Allergies) Date Reviewed: 05/25/2024 Reviewed by: Dolores Rendon MA - Fully Assessed Prescriptions as of 06/12/2024 - rosuvastatin (CRESTOR) 40 mg tablet Take 40 mg by mouth once daily. - MULTIVITAMIN ORAL Take by mouth. - docosahexaenoic acid/epa (FISH OIL ORAL) Take by mouth. - alcohol swabs Apply 1 application to affected area as needed. - atorvastatin (LIPITOR) 10 mg tablet Take 40 mg by mouth once daily. - carvedilol (COREG) 6.25 mg tablet Take 6.25 mg by mouth once daily. - clopidogrel (PLAVIX) 75 mg tablet Take 1 tablet by mouth every afternoon. - furosemide (LASIX) 20 mg tablet Take 1 tablet by mouth every afternoon. - gabapentin (NEURONTIN) 100 mg capsule Take 100 mg by mouth two times a day. - glipiZIDE (GLUCOTROL) 5 mg tablet Take 5 mg by mouth two times a day before meals. - losartan (COZAAR) 100 mg tablet Take 1 tablet by mouth every afternoon. - sertraline (ZOLOFT) 100 mg tablet Take 100 mg by mouth daily at 6 am. Firmware Test Engineer: Therapy (PT/OT/Speech/Resp) ID: [id number] 06/12/2024 3:58 PM Author: YANNA DURANT Signed by YANNA DURANT on 06/12/2024 at 3:59 PM Document text: Program_ID:[id number] Access Code: [email or web address] URL: [email or web address] Date: 06-12-2024 Prepared By: YANNA DURANT Program Notes Exercises - Seated Scapular Retraction - 1 x daily - 5 x weekly - 1 sets - 10 reps - Seated Shoulder Shrug Circles AROM Backward - 1 x daily - 5 x weekly - 1 sets - 10 reps - Supine Shoulder Flexion AAROM with Hands Clasped - 1 x daily - 7 x weekly - 3 sets - 10 reps - Seated Elbow Extension and Shoulder External Rotation AAROM at Table with Towel - 1 x daily - 7 x weekly - 3 sets - 10 reps - Seated Isometric Elbow Flexion - 1 x daily - 7 x weekly - 3 sets - 10 reps - Wrist Extension Stretch Supinated - 1 x daily - 7 x weekly - 3 sets - 10 reps - Finger Flexion with Wrist Extension Caregiver PROM - 1 x daily - 7 x weekly - 3 sets - 10 reps - Finger Flexion with Wrist Extension Caregiver PROM - 1 x daily - 7 x weekly - 3 sets - 10 reps Patient Education - Tips for Caregivers: Managing Shoulder Subluxation and Preventing Injuries During Movement - Heat - Ice -------- Normal [facility] THERAPY NTon 06-12-2024 THERAPY NT HNO ID: [id number] Author: YANNA DURANT OTA/L Service: Occupational Therapy Author Type: Dairy Management Specialist Type: Therapy (PT/OT/Speech/Resp) Filed: 06/12/2024 15:59 Note Text: Program_ID:[id number] Access Code: [email or web address] URL: [email or web address] Date: 06-12-2024 Prepared By: YANNA PRABHAKAR Program Notes Exercises - Seated Scapular Retraction - 1 x daily - 5 x weekly - 1 sets - 10 reps - Seated Shoulder Shrug Circles AROM Backward - 1 x daily - 5 x weekly - 1 sets - 10 reps - Supine Shoulder Flexion AAROM with Hands Clasped - 1 x daily - 7 x weekly - 3 sets - 10 reps - Seated Elbow Extension and Shoulder External Rotation AAROM at Table with Towel - 1 x daily - 7 x weekly - 3 sets - 10 reps - Seated Isometric Elbow Flexion - 1 x daily - 7 x weekly - 3 sets - 10 reps - Wrist Extension Stretch Supinated - 1 x daily - 7 x weekly - 3 sets - 10 reps - Finger Flexion with Wrist Extension Caregiver PROM - 1 x daily - 7 x weekly - 3 sets - 10 reps - Finger Flexion with Wrist Extension Caregiver PROM - 1 x daily - 7 x weekly - 3 sets - 10 reps Patient Education - Tips for Caregivers: Managing Shoulder Subluxation and Preventing Injuries During Movement - Heat - Ice [facility] THERAPY NTon 06-08-2024 THERAPY NT HNO ID: [id number] Author: YANNA DURANT OTA/L Service: Occupational Therapy Author Type: Dairy Management Specialist Type: Therapy (PT/OT/Speech/Resp) Filed: 06/08/2024 14:12 Note Text: Program_ID:[id number] Access Code: [email or web address] URL: [email or web address] Date: 06-08-2024 Prepared By: YANNA DURANT Program Notes Exercises - Seated Scapular Retraction - 1 x daily - 5 x weekly - 1 sets - 10 reps - Seated Shoulder Shrug Circles AROM Backward - 1 x daily - 5 x weekly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 Interpretation and review of laboratory results Abnormal [facility] Potassium [Moles/Vol] 3.6 mmol/L Low 3.7 - 5.1 mmol/L [facility] Protein [Mass/Vol] 6.4 g/dL 6.3 - 8.0 g/dL [facility] Sodium [Moles/Vol] 140 mmol/L 136 - 144 mmol/L [facility] Urea nitrogen [Mass/Vol] 13 mg/dL 9 - 24 mg/dL [facility] Comprehensive metabolic 2000 panelon 01-18-2024 Albumin [Mass/Vol] 4.0 g/dL Normal 3.9-4.9 [facility] Comment on above: Order Comment: Speci men Type: BLOOD SPECIMEN Ordering Facility: [facility] Address: [address] [place] [address] Performed By: #### B ETA2M, CARDIG, BETA2G, CARDIM, 5076-5 #### [facility] CLIA [id number] [address] [place] [address] [place] ALP [Catalytic activity/Vol] 88 U/L Normal 38-113 [facility] Comment on above: Order Comment: Speci men Type: BLOOD SPECIMEN Ordering Facility: [facility] Address: [address] [place] [address] Performed By: #### B ETA2M, CARDIG, BETA2G, CARDIM, 5076-5 #### [facility] CLIA [id number] [address] [place] [address] [place] ALT [Catalytic activity/Vol] 47 U/L Normal 10-54 [facility] Comment on above: Order Comment: Speci men Type: BLOOD SPECIMEN Ordering Facility: [facility] Address: [address] [place] [address] Performed By: #### B ETA2M, CARDIG, BETA2G, CARDIM, 5076-5 #### [facility] CLIA [id number] [address] [place] [address] [place] Anion gap [Moles/Vol] 11 mmol/L Normal 8-15 [facility] Comment on above: Order Comment: Speci men Type: BLOOD SPECIMEN Ordering Facility: [facility] Address: [address] [place] [address] Performed By: #### B ETA2M, CARDIG, BETA2G, CARDIM, 5076-5 #### [facility] CLIA [id number] [address] [place] [address] [place] AST [Catalytic activity/Vol] 29 U/L Normal 14-40 [facility] Comment on above: Order Comment: Speci men Type: BLOOD SPECIMEN Ordering Facility: [facility] Address: [address] [place] [address] Performed By: #### B ETA2M, CARDIG, BETA2G, CARDIM, 5076-5 #### [facility] CLIA [id number] [address] [place] [address] [place] Bilirubin [Mass/Vol] 0.3 mg/dL Normal 0.2-1.3 [facility] Comment on above: Order Comment: Speci men Type: BLOOD SPECIMEN Ordering Facility: [facility] Address: [address] [place] [address] Performed By: #### B ETA2M, CARDIG, BETA2G, CARDIM, 5076-5 #### [facility] CLIA [id number] [address] [place] [address] [place] Calcium [Mass/Vol] 9.7 mg/dL Normal 8.5-10.2 [facility] Comment on above: Order Comment: Speci men Type: BLOOD SPECIMEN Ordering Facility: [facility] Address: [address] [place] [address] Performed By: #### B ETA2M, CARDIG, BETA2G, CARDIM, 5076-5 #### [facility] CLIA [id number] [address] [place] [address] [place] Chloride [Moles/Vol] 104 mmol/L Normal 98-107 [facility] Comment on above: Order Comment: Speci men Type: BLOOD SPECIMEN Ordering Facility: [facility] Address: [address] [place] [address] Performed By: #### B ETA2M, CARDIG, BETA2G, CARDIM, 5076-5 #### [facility] CLIA [id number] [address] [place] [address] [place] CO2 [Moles/Vol] 25 mmol/L Normal 22-30 [facility] Comment on above: Order Comment: Speci men Type: BLOOD SPECIMEN Ordering Facility: [facility] Address: [address] [place] [address] Performed By: #### B ETA2M, CARDIG, BETA2G, CARDIM, 5076-5 #### [facility] CLIA [id number] [address] [place] [address] [place] Creatinine [Mass/Vol] 0.73 mg/dL Normal 0.73-1.22 [facility] Comment on above: Order Comment: Yessenia szymanski Type: BLOOD SPECIMEN Ordering Facility: [facility] Address: [address] [place] [address] Performed By: #### B LUCIO BENITEZ BETA2G CARDIBj, 5076-5 #### [facility] CLIA [id number] [address] [place] [address] [place] Creatinine and Glomerular filtration rate.predicted panel (S/P/Bld) 108 mL/min/1.73m??? Normal >=60 [facility] Comment on above: Order Comment: Yessenia szymanski Type: BLOOD SPECIMEN Ordering Facility: [facility] Address: [address] [place] [address] Result Comment: Zakiya mated Glomerular Filtration Rate (eGFR) is calculated using the 2020 CKD-EPI creatinine equation. This equation utilizes serum creatinine, sex, and age as parameters. The creatinine assay has traceable calibration to isotope dilution-mass spectrometry. Refer to KDIGO guidelines for clinical interpretation. In patients with unstable renal function, e.g. those with acute kidney injury, the eGFR may not accurately reflect actual GFR. Performed By: #### B LUCIO BENITEZ, KARI, CARDI, 5076-5 #### [facility] CLIA [id number] [address] [place], [place] [id number] [place] Glucose [Mass/Vol] 119 mg/dL High 74-99 [facility] Comment on above: Order Comment: Yessenia szymanski Type: BLOOD SPECIMEN Ordering Facility: [facility] Address: [address] [place] [address] Result Comment: The [place] Diabetes Association (ADA) provides guidance for cutoff values for fasting glucose and random glucose. The ADA defines fasting as no caloric intake for at least 8 hours. Fasting plasma glucose results between 100 to 125 mg/dL indicate increased risk for diabetes (prediabetes). Fasting plasma glucose results greater than or equal to 126 mg/dL meet the criteria for diagnosis of diabetes. In the absence of unequivocal hyperglycemia, results should be confirmed by repeat testing. In a patient with classic symptoms of hyperglycemia or hyperglycemic crisis, random plasma glucose results greater than or equal to 200 mg/dL meet the criteria for diagnosis of diabetes. Reference: Standards of Medical Care in Diabetes 2016, [place] Diabetes Association. Diabetes Care. 2016.39(Suppl 1). Performed By: #### B ETA2M, CARDIG, BETA2G, CARDIM, 5076-5 #### [facility] CLIA [id number] [address] [place] [address] [place] Potassium [Moles/Vol] 3.6 mmol/L Low 3.7-5.1 [facility] Comment on above: Order Comment: Speci men Type: BLOOD SPECIMEN Ordering Facility: [facility] Address: [address] [place] [address] Performed By: #### B ETA2M, CARDIG, BETA2G, CARDIM, 5076-5 #### [facility] CLIA [id number] [address] [place] [address] [place] Protein [Mass/Vol] 6.4 g/dL Normal 6.3-8.0 [facility] Comment on above: Order Comment: Marryi stephon Type: BLOOD SPECIMEN Ordering Facility: [facility] Address: [address] [place] [address] Performed By: #### B ETA2M, CARDIG, BETA2G, CARDIM, 5076-5 #### [facility] CLIA [id number] [address] [place] [address] [place] Sodium [Moles/Vol] 140 mmol/L Normal 136-144 [facility] Comment on above: Order Comment: Marryi men Type: BLOOD SPECIMEN Ordering Facility: [facility] Address: [address] [place] [address] Performed By: #### B ETA2M, CARDIG, BETA2G, CARDIM, 5076-5 #### [facility] CLIA [id number] [address] [place] [address] [place] Urea nitrogen [Mass/Vol] 13 mg/dL Normal 9-24 [facility] Comment on above: Order Comment: Yessenia szymanski Type: BLOOD SPECIMEN Ordering Facility: [facility] Address: [address] [place] [address] Performed By: #### B ETA2M, CARDIG, BETA2G, CARDIM, 5076-5 #### [facility] CLIA [id number] [address] [place] [address] [place] D dimer FEU PPP-mCncon 01-17 Fibrin D-dimer FEU (PPP) [Mass/Vol] 790 ng/mL FEU High <500 [facility] Comment on above: Order Comment: Marryi stephon Type: BLOOD SPECIMEN Ordering Facility: [facility] Address: [address] [place] [address] Performed By: #### B ETA2M, CARDIG, BETA2G, CARDIM, 5076-5 #### [facility] CLIA [id number] [address] [place] [address] [place] D-DIMEROrdered By: Jesse chaudhary on 01-18-2024 Fibrin D-dimer FEU (PPP) [Mass/Vol] 790 High NINF [facility] FIBRINOGENon 01-18-2024 Fibrinogen Coag (PPP) [Mass/Vol] 710 mg/dL High 200 - 400 mg/dL [facility] Fibrin D-dimer FEU (PPP) [Ma ss/Vol]Ordered By: Jesse Rodríguez on 01-18-2024 D Dimer Age-related Cutoff 540 ng/mL FEU [facility] 500 ng/mL FEU is the D Dimer cutoff to exclude DVT (deep vein thrombosis) and PE (pulmonary embolism) in patients with a low pre test probability. Supplemental Comment: In patients over 50 years with a low pre test probability for DVT and/or PE, an age adjusted D dimer cutoff can be calculated as [age x 10] ng/mL FEU. For example, a patient of 88 years would have an age adjusted D dimer cutoff of 880 ng/mL FEU. For patients with a suspected DVT, a D dimer level below 500 ng/mL FEU has a negative predictive value of >98.9%, a sensitivity of >96.9% and a specificity of >35.7%. For patients with a suspected PE, a D dimer level below 500 ng/mL FEU has a negative predictive value of >98.5%, and a sensitivity of >96.5% and a specificity of >38.8%. Reference: Steven M, et al. CHANDAN 2014 311:1117 and Van Taylor N, et al. Sheryl Int Med 2016 165:253. Frozen Plasma Aliquot [facility] Fibrin D-dimer FEU (PPP) [Ma ss/Vol]on 01-18-2024 D DIMER AGE-RELATED CUTOFF 540 ng/mL FEU Normal [facility] Comment on above: Order Comment: Yessenia szymanski Type: BLOOD SPECIMEN Ordering Facility: [facility] Address: [address] [place] [address] Performed By: #### B ETA2M, CARDIG, BETA2G, CARDIM, 5076-5 #### [facility] CLIA [id number] [address] [place] [address] [place] Fibrinogen Coag (PPP) [Mass/ Vol]on 01-18-2024 Frozen Plasma Aliquot [facility] Fibrinogen PPP-mCncon 2023 Fibrinogen Coag (PPP) [Mass/Vol] 710 mg/dL High 200-400 [facility] Comment on above: Order Comment: Yessenia szymanski Type: BLOOD SPECIMEN Ordering Facility: [facility] Address: [address] [place] [address] Performed By: #### B ETA2M, CARDIG, BETA2G, CARDIM, 5076-5 #### [facility] CLIA [id number] [address] [place] [address] [place] LUPUS PANELon 01-18-2024 aPTT Coag (Bld) [Time] 46.6 s High 30.2-43.0 [facility] Comment on above: Order Comment: Speci men Type: BLOOD SPECIMEN Ordering Facility: [facility] Address: [address] [place] [address] Performed By: #### B ETA2M, CARDIG, BETA2G, CARDIM, 5076-5 #### [facility] CLIA [id number] [address] [place] [address] [place] aPTT Coag (Bld) [Time] 39.5 s High 31.5-38.3 [facility] Comment on above: Order Comment: Speci men Type: BLOOD SPECIMEN Ordering Facility: [facility] Address: [address] [place] [address] Performed By: #### B ETA2M, CARDIG, BETA2G, CARDIM, 5076-5 #### [facility] CLIA [id number] [address] [place] [address] [place] aPTT Coag (Bld) [Time] 36.5 s High 24.0-35.1 [facility] Comment on above: Order Comment: Speci men Type: BLOOD SPECIMEN Ordering Facility: [facility] Address: [address] [place] [address] Performed By: #### B ETA2M, CARDIG, BETA2G, CARDIM, 5076-5 #### [facility] CLIA [id number] [address] [place] [address] [place] aPTT W excess hexagonal phase phospholipid Coag (PPP) [Time] 57.7 seconds High 34.0-51.8 [facility] Comment on above: Order Comment: Speci men Type: BLOOD SPECIMEN Ordering Facility: [facility] Address: [address] [place] [address] Performed By: #### B ETA2M, CARDIG, BETA2G, CARDIM, 5076-5 #### [facility] CLIA [id number] [address] [place] [address] [place] aPTT-LA w 1:1 PNP Coag (PPP) [Time] 31.8 seconds Normal <33.2 [facility] Comment on above: Order Comment: Speci men Type: BLOOD SPECIMEN Ordering Facility: [facility] Address: [address] [place] [address] Result Comment: 32.5 Performed By: #### B ETA2M, CARDIG, BETA2G, CARDIM, 5076-5 #### [facility] CLIA [id number] [address] [place] [address] [place] Coagulation factor X activated act Coag Qn (PPP) <0.10 Normal <0.10 [facility] Comment on above: Order Comment: Speci men Type: BLOOD SPECIMEN Ordering Facility: [facility] Address: [address] [place] [address] Result Comment: This test was developed and its performance characteristics determined by [facility] [place] ([facility]). It has not been cleared or approved by the FDA. [facility] is regulated under CLIA as qualified to perform high-complexity testing. This test is used for clinical purposes. It should not be regarded as investigational or for research. Performed By: #### B ETA2M, CARDIG, BETA2G, CARDIM, 5076-5 #### [facility] CLIA [id number] [address] [place] [address] [place] Delta dRVVT Coag (PPP) [Time diff] 5.0 delta seconds Normal <7.1 [facility] Comment on above: Order Comment: Speci men Type: BLOOD SPECIMEN Ordering Facility: [facility] Address: [address] [place] [address] Performed By: #### B ETA2M, CARDIG, BETA2G, CARDIM, 5076-5 #### [facility] CLIA [id number] [address] [place] [address] [place] dRVVT Coag (PPP) [Time] 43.7 s Normal 32.0-45.7 [facility] Comment on above: Order Comment: Speci men Type: BLOOD SPECIMEN Ordering Facility: [facility] Address: [address] [place] [address] Performed By: #### B ETA2M, CARDIG, BETA2G, CARDIM, 5076-5 #### [facility] CLIA [id number] [address] [place] [address] [place] dRVVT factor substitution immediately after 1:2 addition of normal plasma Coag (PPP) [Time] 38.1 seconds Normal 32.0-45.7 [facility] Comment on above: Order Comment: Speci men Type: BLOOD SPECIMEN Ordering Facility: [facility] Address: [address] [place] [address] Performed By: #### B ETA2M, CARDIG, BETA2G, CARDIM, 5076-5 #### [facility] CLIA [id number] [address] [place] [address] [place] dRVVT W excess hexagonal phase phospholipid actual/normal Coag (PPP) [Relative time] 52.6 seconds High 34.2-47.9 [facility] Comment on above: Order Comment: Speci men Type: BLOOD SPECIMEN Ordering Facility: [facility] Address: [address] [place] [address] Performed By: #### B ETA2M, CARDIG, BETA2G, CARDIM, 5076-5 #### [facility] CLIA [id number] [address] [place] [address] [place] dRVVT/dRVVT.excess phospholipid Coag (PPP) [Ratio] 1.09 Normal <1.32 [facility] Comment on above: Order Comment: Speci men Type: BLOOD SPECIMEN Ordering Facility: [facility] Address: [address] [place] [address] Performed By: #### B ETA2M, CARDIG, BETA2G, CARDIM, 5076-5 #### [facility] CLIA [id number] [address] [place] [address] [place] PLATELET NEUT 0.0 Seconds Normal <1.9 [facility] Comment on above: Order Comment: Speci men Type: BLOOD SPECIMEN Ordering Facility: [facility] Address: [address] [place] [address] Performed By: #### B ETA2M, CARDIG, BETA2G, CARDIM, 5076-5 #### [facility] CLIA [id number] [address] [place] [address] [place] Thrombin time Coag (PPP) [Time] 18.5 seconds Normal <18.6 [facility] Comment on above: Order Comment: Speci men Type: BLOOD SPECIMEN Ordering Facility: [facility] Address: [address] [place] [address] Performed By: #### B ETA2M, CARDIG, BETA2G, CARDIM, 5076-5 #### [facility] CLIA [id number] [address] [place] [address] [place] No Panel InformationOrdered By: Jesse Rodríguez on 01-18-2024 Interpretation and review of laboratory results Abnormal [facility] PROTEIN S CLOTTABLEon 2023 Protein S actual/normal Coag (PPP) [Relative time] 76 % Normal 59-152 [facility] Comment on above: Order Comment: Speci men Type: BLOOD SPECIMEN Ordering Facility: [facility] Address: [address] [place] [address] Performed By: #### B ETA2M, CARDIG, BETA2G, CARDIM, 5076-5 #### [facility] CLIA [id number] [address] [place] [address] [place] PROTEIN S IMMUNOon 4 Protein S actual/normal Chromogenic method (PPP) [Rel catalytic activity/Vol] 158 % High 74-156 [facility] Comment on above: Order Comment: Speci men Type: BLOOD SPECIMEN Ordering Facility: [facility] Address: [address] [place] [address] Result Comment: The total protein S level is elevated. This may be seen with an acute phase response, but is of doubtful clinical significance. Performed By: #### B LUCIO BENITEZ BETA2G, CARDIM, 5076-5 #### [facility] CLIA [id number] [address] [place] [address] [place] Protein S Free Ag actual/normal IA (PPP) [Relative mass conc] 111 % Normal 55-148 [facility] Comment on above: Order Comment: Speci men Type: BLOOD SPECIMEN Ordering Facility: [facility] Address: [address] [place] [address] Performed By: #### B LUCIO BENITEZ BETA2G, CARDIM, 5076-5 #### [facility] CLIA [id number] [address] [place] [address] [place] PT panel Coag (PPP)on 2023 INR Coag (PPP) [Relative time] 1.0 {INR} Normal 0.9-1.3 [facility] Comment on above: Order Comment: Spectammi szymanski Type: BLOOD SPECIMEN Ordering Facility: [facility] Address: [address] [place] [address] Result Comment: Shanice min K Antagonist (VKA) Therapeutic Range: INR 2 to 3 (Target INR of 2.5) Note: For patients treated with VKA drugs, such as warfarin, the [place] [employer]icians 2012 Guideline recommends a therapeutic INR range of 2 to 3 (target INR of 2.5). This recommendation includes high-risk patients with antiphospholipid syndrome with previous arterial or venous thromboembolism, current-generation mechanical or bioprosthetic aortic heart valve replacement. Note: Patients with mechanical aortic valve replacement and additional risk factors for thromboembolic events (atrial fibrillation, previous thromboembolism, LV dysfunction, hypercoagulable conditions) or an older generation mechanical AVR (i.e., ball in-Cage) or any mechanical MVR should have a INR therapeutic range of 2.5 to 3.5 (target INR of 3). Roni GH, et al. Chest 2012, 141:7S-47S Ana RA, et al. JACC 2017, 70: 252-289 Performed By: #### B ETA2M, CARDIG, BETA2G, CARDIM, 5076-5 #### [facility] CLIA [id number] [address] [place] [address] [place] PT Coag (PPP) [Time] 10.2 s Normal <13.1 [facility] Comment on above: Order Comment: Speci men Type: BLOOD SPECIMEN Ordering Facility: [facility] Address: [address] [place] [address] Performed By: #### B ETA2M, CARDIG, BETA2G, CARDIM, 5076-5 #### [facility] CLIA [id number] [address] [place] [address] [place] Prot C Ag Act/Nor PPP IAon 0 01-18-2024 Protein C Ag actual/normal IA (PPP) [Relative mass conc] 89 % Normal 73-126 [facility] Comment on above: Order Comment: Speci men Type: BLOOD SPECIMEN Ordering Facility: [facility] Address: [address] [place] [address] Result Comment: The protein C antigen level was normal. As this is an antigenic test, a functional protein C deficiency cannot be excluded. Suggest ordering protein C functional assay to exclude a functional protein C deficiency. Performed By: #### B ETA2M, CARDIG, BETA2G, CARDIM, 5076-5 #### [facility] CLIA [id number] [address] [place] [address] [place] aPTT PPPon 01-18-2024 aPTT Coag (PPP) [Time] 29.3 s Normal 23.0-32.4 [facility] Comment on above: Order Comment: Speci men Type: BLOOD SPECIMEN Ordering Facility: [facility] Address: [address] [place] [address] Performed By: #### B ETA2M, CARDIG, BETA2G, CARDIM, 5076-5 #### [facility] CLIA [id number] [address] [place] [address] [id number] [facility] MRI BRAIN W/O CONTRASTon MRI BRAIN W/O CONTRAST ORIGINAL HISTORY: Homonymous visual defects COMPARISON: 14 Nov 2023 TECHNIQUE: 1. Sagittal T1-weighted images. 2. Axial T2-weighted and T2*-weighted images. 3. Axial FLAIR images. 4. Axial diffusion-weighted images with ADC map. FINDINGS: There are several adjacent areas of restricted diffusion in the left cerebral hemisphere, up to about 10 mm in diameter. These involve all the posterior limb of the internal capsule and adjacent white matter and cortex; this may extend to the lateral geniculate body. There is mild associated T2 hyperintensity. The ventricles and sulci are normal in size and configuration. There are no abnormal intra or extra-axial fluid collections. There is mild punctate and nodular T2 hyperintensity in the cerebral white matter and there is more diffuse T2 hyperintensity in the right cortex, mainly at and just above the insular cortex. IMPRESSION: Acute right lacunar infarcts, as well as evolution of the previously seen acute right lacunar infarct. Diffuse white matter changes in the right frontal lobe, mainly involving insular cortex, more prominent than on the comparison. Interpreted by: Mikey Lyn MD Preliminary Report By: Mikey Lyn MD Electronically signed By Mikey Lyn MD Dictated Date: 12/24/2023 3:45:48 PM Prelim Date: 12/24/2023 3:54:59 PM Sign Date: 12/24/2023 3:54:59 PM Ordering Provider: MAHNAZ Oliveira [facility] ([place]) BETA 2 GLYCOPROTEIN, IGGon 0 12-15-2023 Beta 2 glycoprotein 1 IgG IA Qn <9 Normal <20 [facility] Comment on above: Order Comment: Speci men Type: BLOOD SPECIMEN Ordering Facility: [facility] Address: [address] [place] [address] Result Comment: <20 SGU Negative 20-80 SGU Low Positive >80 SGU High Positive These results were obtained with the [employer] QUANTA Lite B2 GPI IgG MARIANNA. B2 GPI IgG values obtained with different manufacturers' assay methods may not be used interchangeably. The magnitude of the reported IgG levels cannot be correlated to an endpoint titer. Performed By: #### B LUCIO BENITEZ, [place], 5076-5 #### [facility] CLIA [id number] [address] [place] [address] [place] BETA 2 GLYCOPROTEIN, IGMon 0 12-15-2023 Beta 2 glycoprotein 1 IgM IA Qn <9 Normal <20 [facility] Comment on above: Order Comment: Yessenia szymanski Type: BLOOD SPECIMEN Ordering Facility: [facility] Address: [address] [place] [address] Result Comment: <20 SMU Negative 20-80 SMU Low Positive >80 SMU High positive These results were obtained with the [employer] QUANTA Lite B2 GPI IgM MARIANNA. B2 GPI IgM values obtained with different manufacturers' assay methods may not be used interchangeably. The magnitude of the reported IgM levels cannot be correlated to an endpoint titer. Performed By: #### B LUCIO BENITEZ BETA2G CARDIBj, 5076-5 #### [facility] CLIA [id number] [address] [place] [address] CARDIOLIPIN IGG ABSon 2023 Cardiolipin IgG IA Qn (S) <9.0 Normal <15.0 [facility] Comment on above: Order Comment: Yessenia szymanski Type: BLOOD SPECIMEN Ordering Facility: [facility] Address: [address] [place] [address] Result Comment: <15 GPL Negative 15-20 GPL Indeterminate >20 GPL Positive The following results were obtained with the [employer] QUANTA Lite JUJU IgG III MARIANNA. Cardiolipin IgG values obtained with the different manufacturers' assay methods may not be used interchangeably. The magnitude of the reported IgG levels cannot be correlated to an endpoint titer. Performed By: #### B CATRACHITOMSINDYG BETA2G, CARDIM, 5076-5 #### [facility] CLIA [id number] [address] [place] [address] [place] CARDIOLIPIN IGM ABSon 2023 Cardiolipin IgM IA Qn (S) <9.0 Normal <12.5 [facility] Comment on above: Order Comment: Yessenia szymanski Type: BLOOD SPECIMEN Ordering Facility: [facility] Address: [address] [place] [address] Result Comment: <12. 5 MPL Negative 12.5-20 MPL Indeterminate >20 MPL Positive The following results were obtained with the [employer] QUANTA Lite JUJU IgM III MARIANNA. Cardiolipin IgM values obtained with the different manufacturers' assay methods may not be used interchangeably. The magnitude of the reported IgM levels cannot be correlated to an endpoint titer. ??? Performed By: #### B LUCIO BENITEZ, BETA2G, CARDI, 5076-5 #### [facility] CLIA [id number] [address] [place] [address] [place] Cardiolipin IgA Ser IA-aCnco n 12-15-2023 Cardiolipin IgA IA Qn (S) <9.0 Normal <12.0 [facility] Comment on above: Order Comment: Yessenia szymanski Type: BLOOD SPECIMEN Ordering Facility: [facility] Address: [address] [place] [address] Result Comment: <12 APL Negative 12-20 APL Indeterminate >20 APL Positive The following results were obtained with the [employer] QUANTA Lite JUJU IgA III MARIANNA. Cardiolipin IgA values obtained with the different manufacturers' assay methods may not be used interchangeably. The magnitude of the reported IgA levels cannot be correlated to an endpoint titer. Performed By: #### B LUCIO BENITEZ, BETA2G, CARDI, 5076-5 #### [facility] CLIA [id number] [address] [place] [address] [place] FACTOR V LEIDEN/PCRon 2023 FACTOR V LEIDEN PCR REPORT Normal [facility] Comment on above: Order Comment: Yessenia szymanski Type: BLOOD SPECIMEN Ordering Facility: [facility] Address: [address] [place] [address] Result Comment: Fact or V Leiden PCR Laboratory Accession Number: [id number] Result: NEGATIVE Interpretation: The DNA sample is negative for the c.1601G>A variant (legacy name R506Q) in the Factor V (F5) gene. This variant is commonly known as Factor V Leiden. This result is not associated with an increased risk of thromboembolic disease. The Factor V Leiden assay will not detect individuals with activated protein C resistance who do not have the c.1601G>A variant (less than 5% of those with activated protein C resistance). These individuals may be identified by ordering the functional assay for Activated Protein C Resistance. Thromboembolic disease is a multifactorial disorder, and other causes are not excluded by this result. Methodology: Isolated genomic DNA from the patient's blood specimen is evaluated for the c.1601G>A (p.Grs482Adq;[id number]) variant of the F5 gene [RefSeq NM_000130.4; GRCh38/hg38] by multiplex polymerase chain reaction (PCR) followed by melting curve analysis. Limitations: This assay is designed to detect the c.1601G>A variant in the F5 gene. Uncommon variants or single nucleotide polymorphisms may affect binding of probes and may rarely result in false negative, false positive or indeterminate results. This assay does not detect other disease-associated rare variants on F5 or other causes of thromboembolic disease. Disclaimer: This test was developed and its performance characteristics determined by [facility] [place] ([facility] It has not been cleared or approved by the FDA. [facility] is regulated under CLIA as certified to perform high- complexity testing. This test is used for clinical purposes. It should not be regarded as investigational or for research. Testing and interpretation performed at [facility], [address] [place] [address]. CLIA Number: [id number] References: 1) Eyad R, Rachelle G, Jesus P. The genetics of venous thromboembolism. A meta-analysis involving approximately 120,000 cases and 180,000 controls. Thromb Haemost 2009;102(2):360-70. 2) Inherited Thrombophilias in . ACOG Practice Bulletin.No.197.[place] College of Obstetricians and Gynecologists. Obstet Gynecol 2018;132:e18-34. 3) Sim SALINAS. Factor V Leiden Thrombophilia. Sonia Med.2011;13(1):1-16. 4) Pharmacogenomics summary [email or web address] As reviewed by Prudence Marrero MD, PhD Performed By: #### F JOCELIN #### [facility] CLIA [id number] [address] [place] [address] [place] LUPUS PANELon 12-15-2023 aPTT Coag (Bld) [Time] 44.4 s High 30.2-43.0 [facility] Comment on above: Order Comment: Speci men Type: BLOOD SPECIMEN Ordering Facility: [facility] Address: [address] [place] [address] Performed By: #### B ETA2M, CARDIG, BETA2G, CARDIM, 5076-5 #### [facility] CLIA [id number] [address] [place] [address] [place] [facility] aPTT Coag (Bld) [Time] 38.0 s Normal 31.5-38.3 [facility] Comment on above: Order Comment: Speci men Type: BLOOD SPECIMEN Ordering Facility: [facility] Address: [address] [place] [address] Performed By: #### B ETA2M, CARDIG, BETA2G, CARDIM, 5076-5 #### [facility] CLIA [id number] [address] [place] [address] [place] aPTT Coag (Bld) [Time] 33.7 s Normal 24.0-35.1 [facility] Comment on above: Order Comment: Speci men Type: BLOOD SPECIMEN Ordering Facility: [facility] Address: [address] [place] [address] Performed By: #### B ETA2M, CARDIG, BETA2G, CARDIM, 5076-5 #### [facility] CLIA [id number] [address] [place] [address] [place] aPTT W excess hexagonal phase phospholipid Coag (PPP) [Time] 56.8 seconds High 34.0-51.8 [facility] Comment on above: Order Comment: Speci men Type: BLOOD SPECIMEN Ordering Facility: [facility] Address: [address] [place] [address] Performed By: #### B ETA2M, CARDIG, BETA2G, CARDIM, 5076-5 #### [facility] CLIA [id number] [address] [place] [address] [place] Coagulation factor X activated act Coag Qn (PPP) <0.10 Normal <0.10 [facility] Comment on above: Order Comment: Speci men Type: BLOOD SPECIMEN Ordering Facility: [facility] Address: [address] [place] [address] Result Comment: This test was developed and its performance characteristics determined by [facility] [place] ([facility]). It has not been cleared or approved by the FDA. [facility] is regulated under CLIA as qualified to perform high-complexity testing. This test is used for clinical purposes. It should not be regarded as investigational or for research. Performed By: #### B ETA2M, CARDIG, BETA2G, CARDIM, 5076-5 #### [facility] CLIA [id number] [address] [place] [address] [place] Delta dRVVT Coag (PPP) [Time diff] 11.2 delta seconds High <7.1 [facility] Comment on above: Order Comment: Speci men Type: BLOOD SPECIMEN Ordering Facility: [facility] Address: [address] [place] [address] Performed By: #### B ETA2M, CARDIG, BETA2G, CARDIM, 5076-5 #### [facility] CLIA [id number] [address] [place] [address] [place] dRVVT Coag (PPP) [Time] 46.3 s High 32.0-45.7 [facility] Comment on above: Order Comment: Speci men Type: BLOOD SPECIMEN Ordering Facility: [facility] Address: [address] [place] [address] Performed By: #### B ETA2M, CARDIG, BETA2G, CARDIM, 5076-5 #### [facility] CLIA [id number] [address] [place] [address] [place] dRVVT factor substitution immediately after 1:2 addition of normal plasma Coag (PPP) [Time] 39.5 seconds Normal 32.0-45.7 [facility] Comment on above: Order Comment: Speci men Type: BLOOD SPECIMEN Ordering Facility: [facility] Address: [address] [place] [address] Performed By: #### B ETA2M, CARDIG, BETA2G, CARDIM, 5076-5 #### [facility] CLIA [id number] [address] [place] [address] [place] dRVVT W excess hexagonal phase phospholipid actual/normal Coag (PPP) [Relative time] 45.6 seconds Normal 34.2-47.9 [facility] Comment on above: Order Comment: Speci men Type: BLOOD SPECIMEN Ordering Facility: [facility] Address: [address] [place] [address] Performed By: #### B ETA2M, CARDIG, BETA2G, CARDIM, 5076-5 #### [facility] CLIA [id number] [address] [place] [address] [place] dRVVT/dRVVT.excess phospholipid Coag (PPP) [Ratio] 1.13 Normal <1.32 [facility] Comment on above: Order Comment: Speci men Type: BLOOD SPECIMEN Ordering Facility: [facility] Address: [address] [place] [address] Performed By: #### B ETA2M, CARDIG, BETA2G, CARDIM, 5076-5 #### [facility] CLIA [id number] [address] [place] [address] [place] PLATELET NEUT 0.3 Seconds Normal <1.9 [facility] Comment on above: Order Comment: Speci men Type: BLOOD SPECIMEN Ordering Facility: [facility] Address: [address] [place] [address] Performed By: #### B LUCIO BENITEZ, NETTE PIERCE, 5076-5 #### [facility] CLIA [id number] [address] [place], [place] [address] [address] [place] Thrombin time Coag (PPP) [Time] 19.5 seconds High <18.6 [facility] Comment on above: Order Comment: Yessenia szymanski Type: BLOOD SPECIMEN Ordering Facility: [facility] Address: [address] [place] [address] Performed By: #### B LUCIO BENITEZ, NETTE PIERCE, 5076-5 #### [facility] CLIA [id number] [address] [place] [address] [place] PT panel Coag (PPP)on 2023 INR Coag (PPP) [Relative time] 1.1 {INR} Normal 0.9-1.3 [facility] Comment on above: Order Comment: Yessenia szymanski Type: BLOOD SPECIMEN Ordering Facility: [facility] Address: [address] [place] [address] Result Comment: Shanice min K Antagonist (VKA) Therapeutic Range: INR 2 to 3 (Target INR of 2.5) Note: For patients treated with VKA drugs, such as warfarin, the [place] [employer] 2012 Guideline recommends a therapeutic INR range of 2 to 3 (target INR of 2.5). This recommendation includes high-risk patients with antiphospholipid syndrome with previous arterial or venous thromboembolism, current-generation mechanical or bioprosthetic aortic heart valve replacement. Note: Patients with mechanical aortic valve replacement and additional risk factors for thromboembolic events (atrial fibrillation, previous thromboembolism, LV dysfunction, hypercoagulable conditions) or an older generation mechanical AVR (i.e., ball in-Cage) or any mechanical MVR should have a INR therapeutic range of 2.5 to 3.5 (target INR of 3). Roni GH, et al. Chest 2012, 141:7S-47S Ana RA, et al. JACC 2017, 70: 252-289 Performed By: #### B ETA2M, CARDIG, BETA2G, CARDIM, 5076-5 #### [facility] CLIA [id number] [address] [place] [address] [place] PT Coag (PPP) [Time] 11.4 s Normal 9.7-13.0 [facility] Comment on above: Order Comment: Speci men Type: BLOOD SPECIMEN Ordering Facility: [facility] Address: [address] [place] [address] Performed By: #### B ETA2M, CARDIG, BETA2G, CARDIM, 5076-5 #### [facility] CLIA [id number] [address] [place] [address] [place] aPTT PPPon 12-15-2023 aPTT Coag (PPP) [Time] 30.5 s Normal 23.0-32.4 [facility] Comment on above: Order Comment: Speci men Type: BLOOD SPECIMEN Ordering Facility: [facility] Address: [address] [place] [address] Result Comment: Froz en Plasma Aliquot Performed By: #### B ETA2M, CARDIG, BETA2G, CARDIM, 5076-5 #### [facility] CLIA [id number] [address] [place] [address] [place] LABORATORYOrdered By: Oneil Hu on 12-09-2023 Blood Glucose Testing Reason Routine (12/09/23 12:01 PM) [facility] Glucose [Mass/Vol] 128 mg/dL High 70 - 110 mg/dL [facility] Blood Glucose Testing Reason Routine (12/09/23 10:15 AM) [facility] LABORATORYOrdered By: Patel Dawn on 12-09-2023 Blood Glucose Testing Reason Routine (12/09/23 5:44 AM) [facility] Glucose [Mass/Vol] 94 mg/dL Normal 70 - 110 mg/dL [facility] LABORATORYOrdered By: Roseanna Miles on 12-08-2023 Glucose [Mass/Vol] 154 mg/dL High 70 - 110 mg/dL [facility] [employer] LABORATORYOrdered By: Soo Olson on 12-07-2023 Time of Stated Blood Glucose [id number] [facility] Time [facility]ated Blood Glucose [id number] [place] .Auto Diffon 12-06-2023 Basophil, Absolute 0.0 10 3/mcL Normal 0.0-0.3 [facility] ([place]) Comment on above: Performed By: #### U AMIC UA #### [address] [address] Basophils/100 WBC (Bld) 0.2 % Normal 0.0-2.5 [facility] ([place]) Comment on above: Performed By: #### U AMIDarius UA #### [address] [address] Eosinophil, Absolute 0.0 10 3/mcL Normal 0.0-0.7 [facility] ([place]) Comment on above: Performed By: #### U AMIC UA #### [address] [address] Eosinophils/100 WBC (Bld) 0.0 % Normal 0.0-6.0 [facility] ([place]) Comment on above: Performed By: #### U AMIC UA #### [address] [address] Lymphocyte, Absolute 1.3 10 3/mcL Normal 0.9-4.3 [facility] ([place]) Comment on above: Performed By: #### U AMIC UA #### [address] [address] Lymphocytes/100 WBC (Bld) 10.6 % Low 20.0-40.0 [facility] ([place]) Comment on above: Performed By: #### U AMIC, UA #### [address] [address] Monocyte, Absolute 0.6 10 3/mcL Normal 0.1-1.4 [facility] ([place]) Comment on above: Performed By: #### U AMIC, UA #### [address] [address] Monocytes/100 WBC (Bld) 5.0 % Normal 2.0-13.0 [facility] ([place]) Comment on above: Performed By: #### U AMIC, UA #### [address] [address] Neutrophils/100 WBC (Bld) 84.2 % High 50.0-75.0 [facility] ([place]) Comment on above: Performed By: #### U AMIC, UA #### [address] [address] .GFRon 12-06-2023 GFR >60 Normal [facility] ([place]) Comment on above: Result Comment: GFR Population mean for , Non- Americans Ages 20-29 = 116 mL/min/1.73 sq.m. Ages 30-39 = 107 mL/min/1.73 sq.m. Ages 40-49 = 99 mL/min/1.73 sq.m. Ages 50-59 = 93 mL/min/1.73 sq.m. Ages 60-69 = 85 mL/min/1.73 sq.m. Ages 70+ = 75 mL/min/1.73 sq.m. Chronic Kidney Disease: Less than 60 mL/min/1.73 square meters End Stage Renal Disease: Less than 15 mL/min/1.73 square meters Performed By: #### U AMIC, UA #### [address] [address] GFR Non- >60 Normal [facility] ([place]) Comment on above: Result Comment: GFR Population mean for , Non- Americans Ages 20-29 = 116 mL/min/1.73 sq.m. Ages 30-39 = 107 mL/min/1.73 sq.m. Ages 40-49 = 99 mL/min/1.73 sq.m. Ages 50-59 = 93 mL/min/1.73 sq.m. Ages 60-69 = 85 mL/min/1.73 sq.m. Ages 70+ = 75 mL/min/1.73 sq.m. Chronic Kidney Disease: Less than 60 mL/min/1.73 square meters End Stage Renal Disease: Less than 15 mL/min/1.73 square meters Performed By: #### U AMIC, UA #### [address] [address] .NEUABSon 12-06-2023 Neutrophil, Absolute 10.1 10 3/mcL High 2.3-8.1 A [facility] ([place]) Comment on above: Performed By: #### U AMIC, UA #### [address] [address] BMPon 12-06-2023 BUN/Creatinine Ratio 47.1 ratio High 10.0-22.0 [facility] ([place]) Comment on above: Performed By: #### U AMIC, UA #### [address] [address] Calcium [Mass/Vol] 9.4 mg/dL Normal 8.7-10.4 [facility] ([place]) Comment on above: Performed By: #### U AMIC, UA #### [address] [address] Chloride [Moles/Vol] 108 mmol/L Normal 98-110 [facility] ([place] Comment on above: Performed By: #### U AMIC, UA #### [address] [address] CO2 [Moles/Vol] 28 mmol/L Normal 22-32 [facility] ([place]) Comment on above: Performed By: #### U AMIC, UA #### [address] [address] Creatinine [Mass/Vol] 0.68 mg/dL Normal 0.60-1.40 [facility] ([place]) Comment on above: Performed By: #### U AMIC, UA #### [address] [address] Electrolyte Balance 7.0 mEq/L Normal 4.0-15.0 [facility] ([place]) Comment on above: Performed By: #### U AMIC, UA #### [facility] [address] [place] [address] Glucose [Mass/Vol] 157 mg/dL High 70-110 [facility] ([place]) Comment on above: Performed By: #### U AMIC, UA #### [address] [address] Potassium [Moles/Vol] 4.4 mmol/L Normal 3.5-5.0 [facility] ([place]) Comment on above: Performed By: #### U AMIC, UA #### [address] [address] Sodium [Moles/Vol] 143 mmol/L Normal 136-145 [facility] ([place]) Comment on above: Performed By: #### U AMIC, UA #### [address] [address] Urea nitrogen [Mass/Vol] 32.0 mg/dL High 8.0-22.0 [facility] ([place]) Comment on above: Performed By: #### U AMIC, UA #### [address] [address] CBCon 12-06-2023 Erythrocyte distribution width (RBC) [Ratio] 14.0 % Normal 11.5-15.5 [facility] ([place]) Comment on above: Performed By: #### U AMIC, UA #### [address] [address] Hematocrit (Bld) [Volume fraction] 39.5 % Low 40.0-52.0 [facility] ([place]) Comment on above: Performed By: #### U AMIC, UA #### [address] [address] Hgb 13.3 G/dL Normal 13.0-17.5 [facility] ([place]) Comment on above: Performed By: #### U AMIC, UA #### [place] [id number] MCH (RBC) [Entitic mass] 27.7 pg Normal 27.0-33.0 [facility] ([place]) Comment on above: Performed By: #### U AMIC, UA #### [place] [address] MCHC 33.7 G/dL Normal 32.0-36.0 [facility] ([place] Comment on above: Performed By: #### U AMIC, UA #### [place] [address] MCV (RBC) [Entitic vol] 82.1 fL Normal 81.0-100.0 [facility] ([place] Comment on above: Performed By: #### U AMIC, UA #### [place] [address] Platelet 274 10 3/mcL Normal 150-450 [facility] ([place] Comment on above: Performed By: #### U AMIC, UA #### [place] [address] Platelet mean volume (Bld) [Entitic vol] 8.0 fL Normal 6.4-10.5 [facility] ([place]) Comment on above: Performed By: #### U AMIC, UA #### [place] [address] RBC 4.81 10 6/mcL Normal 4.50-6.00 [facility] ([place] Comment on above: Performed By: #### U AMIC, UA #### [place] [address] WBC 12.1 10 3/mcL High 4.5-10.8 [facility] ([place] Comment on above: Performed By: #### U AMIC, UA #### [place] [address] LABORATORYOrdered By: SYSTEM SYSTEM on 12-06-2023 Basophils (Bld) [#/Vol] 0.0 103/mcL Normal 0.0 - 0.3 10^3/mcL AH Workflow SS Basophils/100 WBC (Bld) 0.2 % Normal 0.0 - 2.5 % AH Workflow SS Calcium [Mass/Vol] 9.4 mg/dL Normal 8.7 - 10. 4 mg/dL ADM SS Chloride [Moles/Vol] 108 mmol/L Normal 98 - 110 mEq/L ADM SS CO2 [Moles/Vol] 28 mmol/L Normal 22 - 32 mEq/L ADM SS Creatinine [Mass/Vol] 0.68 mg/dL Normal 0.60 - 1.40 mg/dL ADM SS Electrolyte Balance 7.0 mEq/L Normal 4.0 - 15 .0 mEq/L ADM SS Eosinophils (Bld) [#/Vol] 0.0 103/mcL Normal 0.0 - 0.7 10^3/mcL Workflow SS Eosinophils/100 WBC (Bld) 0.0 % Normal 0.0 - 6.0 % AH Workflow SS Erythrocyte distribution width (RBC) [Ratio] 14.0 % Normal 11.5 - 15.5 % Workflow SS GFR/1.73 sq M.predicted among blacks MDRD (S/P/Bld) [Vol rate/Area] ml/min/1.73sqm Invalid Interpretation Code [employer] Chemistry S Comment on above: Interpretive Data: GFR Population mean for , Non- Americans Ages 20-29 = 116 mL/min/1.73 sq.m. Ages 30-39 = 107 mL/min/1.73 sq.m. Ages 40-49 = 99 mL/min/1.73 sq.m. Ages 50-59 = 93 mL/min/1.73 sq.m. Ages 60-69 = 85 mL/min/1.73 sq.m. Ages 70+ = 75 mL/min/1.73 sq.m. Chronic Kidney Disease: Less than 60 mL/min/1.73 square meters End Stage Renal Disease: Less than 15 mL/min/1.73 square meters GFR/1.73 sq M.predicted among non-blacks MDRD (S/P/Bld) [Vol rate/Area] ml/min/1.73sqm Invalid Interpretation Code [employer] Chemistry S Comment on above: Interpretive Data: GFR Population mean for , Non- Americans Ages 20-29 = 116 mL/min/1.73 sq.m. Ages 30-39 = 107 mL/min/1.73 sq.m. Ages 40-49 = 99 mL/min/1.73 sq.m. Ages 50-59 = 93 mL/min/1.73 sq.m. Ages 60-69 = 85 mL/min/1.73 sq.m. Ages 70+ = 75 mL/min/1.73 sq.m. Chronic Kidney Disease: Less than 60 mL/min/1.73 square meters End Stage Renal Disease: Less than 15 mL/min/1.73 square meters Glucose [Mass/Vol] 157 mg/dL High 70 - 110 mg/dL AH ADM SS Hematocrit (Bld) [Volume fraction] 39.5 % Low 40.0 - 52.0 % AH Workflow SS Hemoglobin (Bld) [Mass/Vol] 13.3 G/dL Normal 13.0 - 17.5 G/dL AH Workflow SS Lymphocytes (Bld) [#/Vol] 1.3 103/mcL Normal 0.9 - 4.3 10^3/mcL AH Workflow SS Lymphocytes/100 WBC (Bld) 10.6 % Low 20.0 - 40.0 % AH Workflow SS MCH (RBC) [Entitic mass] 27.7 pg Normal 27.0 - 33.0 pg AH Workflow SS MCHC 33.7 G/dL Normal 32.0 - 36.0 G/dL AH Workflow SS MCV (RBC) [Entitic vol] 82.1 fL Normal 81.0 - 100.0 fL AH Workflow SS Monocytes (Bld) [#/Vol] 0.6 103/mcL Normal 0.1 - 1.4 10^3/mcL AH Workflow SS Monocytes/100 WBC (Bld) 5.0 % Normal 2.0 - 13.0 % AH Workflow SS Neutrophils (Bld) [#/Vol] 10.1 103/mcL High 2.3 - 8.1 10^3/mcL AH Workflow SS Neutrophils/100 WBC (Bld) 84.2 % High 50.0 - 75.0 % AH Workflow SS Platelet mean volume (Bld) [Entitic vol] 8.0 fL Normal 6.4 - 10.5 fL AH Workflow SS Platelets (Bld) [#/Vol] 274 103/mcL Normal 150 - 450 10^3/mcL AH Workflow SS Potassium [Moles/Vol] 4.4 mmol/L Normal 3.5 - 5.0 mEq/L AH ADM SS RBC (Bld) [#/Vol] 4.81 106/mcL Normal 4.50 - 6.0 0 10^6/mcL AH Workflow SS Sodium [Moles/Vol] 143 mmol/L Normal 136 - 145 mEq/L ADM SS Urea nitrogen [Mass/Vol] 32.0 mg/dL High 8.0 - 22.0 mg/dL AH ADM SS Urea nitrogen/Creatinine [Mass ratio] 47.1 ratio High 10.0 - 22.0 ratio AH ADM SS WBC (Bld) [#/Vol] 12.1 103/mcL High 4.5 - 10.8 10^3/mcL Workflow SS .Auto Diffon 12-03-2023 Basophil, Absolute 0.0 10 3/mcL Normal 0.0-0.3 [facility] ([place]) Comment on above: Performed By: #### A FINN, CBC, ADIFF, BMP, GFR #### [address] [address] Basophils/100 WBC (Bld) 0.4 % Normal 0.0-2.5 [facility] ([place]) Comment on above: Performed By: #### A FINN, CBC, ADIFF, BMP, GFR #### [address] [address] Eosinophil, Absolute 0.2 10 3/mcL Normal 0.0-0.7 [facility] [place] ([place]) Comment on above: Performed By: #### A FINN, CBC, ADIFF, BMP, GFR #### [address] [address] Eosinophils/100 WBC (Bld) 1.8 % Normal 0.0-6.0 [facility] ([place]) Comment on above: Performed By: #### A FINN, CBC, ADIFF, BMP, GFR #### [address] [address] Lymphocyte, Absolute 1.8 10 3/mcL Normal 0.9-4.3 [facility] [place] ([place]) Comment on above: Performed By: #### A FINN, CBC, ADIFF, BMP, GFR #### [address] [address] Lymphocytes/100 WBC (Bld) 19.2 % Low 20.0-40.0 [facility] ([place]) Comment on above: Performed By: #### A FINN, CBC, ADIFF, BMP, GFR #### [address] [address] Monocyte, Absolute 0.8 10 3/mcL Normal 0.1-1.4 [facility] ([place]) Comment on above: Performed By: #### A FINN, CBC, ADIFF, BMP, GFR #### [address] [address] Monocytes/100 WBC (Bld) 8.3 % Normal 2.0-13.0 [facility] ([place]) Comment on above: Performed By: #### A FINN, CBC, ADIFF, BMP, GFR #### [address] [address] Neutrophils/100 WBC (Bld) 70.3 % Normal 50.0-75.0 [facility] ([place]) Comment on above: Performed By: #### A FINN, CBC, ADIFF, BMP, GFR #### [address] [address] .NEUABSon 12-03-2023 Neutrophil, Absolute 6.5 10 3/mcL Normal 2.3-8.1 [facility] [place] ([place]) Comment on above: Performed By: #### A FINN, CBC, ADIFF, BMP, GFR #### [place] [id number] CBCon 12-03-2023 Erythrocyte distribution width (RBC) [Ratio] 13.6 % Normal 11.5-15.5 [facility] ([place]) Comment on above: Performed By: #### A FINN, CBC, ADIFF, BMP, GFR #### [address] [address] Hematocrit (Bld) [Volume fraction] 36.1 % Low 40.0-52.0 [facility] ([place]) Comment on above: Performed By: #### A FINN, CBC, ADIFF, BMP, GFR #### [place] [address] Hgb 12.4 G/dL Low 13.0-17.5 [facility] ([place]) Comment on above: Performed By: #### A FINN, CBC, ADIFF, BMP, GFR #### [place] [address] MCH (RBC) [Entitic mass] 28.5 pg Normal 27.0-33.0 [facility] ([place]) Comment on above: Performed By: #### A FINN, CBC, ADIFF, BMP, GFR #### [place] [address] MCHC 34.4 G/dL Normal 32.0-36.0 [facility] ([place]) Comment on above: Performed By: #### A FINN, CBC, ADIFF, BMP, GFR #### [place] [address] MCV (RBC) [Entitic vol] 82.8 fL Normal 81.0-100.0 [facility] ([place]) Comment on above: Performed By: #### A FINN, CBC, ADIFF, BMP, GFR #### [place] [address] Platelet 192 10 3/mcL Normal 150-450 [facility] [place] ([place]) Comment on above: Performed By: #### A FINN, CBC, ADIFF, BMP, GFR #### [place] [address] Platelet mean volume (Bld) [Entitic vol] 8.3 fL Normal 6.4-10.5 [facility] ([place]) Comment on above: Performed By: #### A FINN, CBC, ADIFF, BMP, GFR #### [place] [address] RBC 4.36 10 6/mcL Low 4.50-6.00 [facility] [place] ([place]) Comment on above: Performed By: #### A FINN, CBC, ADIFF, BMP, GFR #### [place] [address] WBC 9.3 10 3/mcL Normal 4.5-10.8 [facility] [place] ([place]) Comment on above: Performed By: #### A FINN, CBC, ADIFF, BMP, GFR #### [place] [address] LABORATORYOrdered By: Soo Olson on 12-03-2023 Time of Stated Blood Glucose [id number] [facility] LABORATORYOrdered By: Cristal Dawson on 12-03-2023 Appearance (U) Turbid *ABN* (12/03/23 11:49 AM) Invalid Interpretation Code Clear AH Auto Urine SS Bacteria LM.HPF (Urine sed) [#/Area] 4 /[HPF] Invalid Interpretation Code Negative AH Auto Urine SS Bilirubin Ql (U) Negative (12/03/23 11:49 AM) Normal Neg-Trace AH Auto Urine SS Color (U) Yellow (12/03/23 11:49 AM) Normal AH Auto Urine SS Crystals.amorphous LM.HPF (Urine sed) [#/Area] 4 /[HPF] Normal AH Auto Urine SS Glucose Test strip (U) [Mass/Vol] Negative Normal Negative AH Auto Urine SS Hemoglobin Auto test strip (U) [Mass/Vol] Negative (12/03/23 11:49 AM) Normal Neg-Trace AH Auto Urine SS Ketones Ql (U) Negative Normal Neg-Trace AH Auto Ur ine SS UA Leuk Est Negative (12/03/23 11:49 AM) Normal Negative AH Auto Urine SS UA Mucous 4+ /HPF Normal AH Auto Urine SS UA Nitrite Negative (12/03/23 11:49 AM) Normal Negative AH Auto Urine SS UA pH 5.0 (12/03/23 11:49 AM) Normal 5.0 - 8.0 AH Auto Urine SS UA Protein 100 mg/dL Invalid Interpretation Code Negative AH Auto Urine SS UA RBC Negative Normal 0-2 AH Auto Urine SS UA Spec Grav 1.015 (12/03/23 11:49 AM) Normal 1.006-1.029 AH Auto Urine SS UA Specimen Type Clean Catch (12/03/23 11:49 AM) Normal AH Auto Urine SS UA Squam Epithelial Negative Normal 0-20 AH Au to Urine SS UA Uric Ac Crystals Trace /HPF Normal AH Au to Urine SS UA Urobilinogen 1.0 E.U./dL Normal 0.2-1.0 AH Auto Urine SS WBC LM.HPF (Urine sed) [#/Area] Rare /HPF Normal 0-5 AH Auto Urine SS LABORATORYOrdered By: SYSTEM SYSTEM on 12-03-2023 Basophils (Bld) [#/Vol] 0.0 103/mcL Normal 0.0 - 0.3 10^3/mcL AH Workflow SS Basophils/100 WBC (Bld) 0.4 % Normal 0.0 - 2.5 % AH Workflow SS Eosinophils (Bld) [#/Vol] 0.2 103/mcL Normal 0.0 - 0.7 10^3/mcL AH Workflow SS Eosinophils/100 WBC (Bld) 1.8 % Normal 0.0 - 6.0 % AH Workflow SS Erythrocyte distribution width (RBC) [Ratio] 13.6 % Normal 11.5 - 15.5 % AH Workflow SS Hematocrit (Bld) [Volume fraction] 36.1 % Low 40.0 - 52.0 % AH Workflow SS Hemoglobin (Bld) [Mass/Vol] 12.4 G/dL Low 13.0 - 17.5 G/dL AH Workflow SS Lymphocytes (Bld) [#/Vol] 1.8 103/mcL Normal 0.9 - 4.3 10^3/mcL AH Workflow SS Lymphocytes/100 WBC (Bld) 19.2 % Low 20.0 - 40.0 % AH Workflow SS MCH (RBC) [Entitic mass] 28.5 pg Normal 27.0 - 33.0 pg AH Workflow SS MCHC 34.4 G/dL Normal 32.0 - 36.0 G/dL AH Workflow SS MCV (RBC) [Entitic vol] 82.8 fL Normal 81.0 - 100.0 fL AH Workflow SS Monocytes (Bld) [#/Vol] 0.8 103/mcL Normal 0.1 - 1.4 10^3/mcL AH Workflow SS Monocytes/100 WBC (Bld) 8.3 % Normal 2.0 - 13.0 % AH Workflow SS Neutrophils (Bld) [#/Vol] 6.5 103/mcL Normal 2.3 - 8.1 10^3/mcL AH Workflow SS Neutrophils/100 WBC (Bld) 70.3 % Normal 50.0 - 75.0 % AH Workflow SS Platelet mean volume (Bld) [Entitic vol] 8.3 fL Normal 6.4 - 10.5 fL AH Workflow SS Platelets (Bld) [#/Vol] 192 103/mcL Normal 150 - 450 10^3/mcL AH Workflow SS RBC (Bld) [#/Vol] 4.36 106/mcL Low 4.50 - 6.0 0 10^6/mcL AH Workflow SS WBC (Bld) [#/Vol] 9.3 103/mcL Normal 4.5 - 10.8 10^3/mcL AH Workflow SS UAon 12-03-2023 Color (U) Yellow Normal [facility] ([place]) Comment on above: Performed By: #### U AMIC, UA #### [place] [address] Glucose (U) [Mass/Vol] Negative Normal Negative [facility] ([place]) Comment on above: Performed By: #### U AMIC, UA #### [place] [address] Ketones Ql (U) Negative Normal Neg-Trace [facility] ([place]) Comment on above: Performed By: #### U AMIC, UA #### [place] [address] UA Appear Turbid Abnormal Clear [facility] ([place]) Comment on above: Performed By: #### U AMIC, UA #### [place] [address] UA Blood Negative Normal Neg-Trace [facility] ([place]) Comment on above: Performed By: #### U AMIC, UA #### [place] [address] UA Leuk Est Negative Normal Negative [facility] ([place]) Comment on above: Performed By: #### U AMIC, UA #### [place] [id number] UA Nitrite Negative Normal Negative [facility] ([place]) Comment on above: Performed By: #### U AMIC, UA #### [place] [address] UA pH 5.0 Normal 5.0 - 8.0 [facility] ([place]) Comment on above: Performed By: #### U AMIC, UA #### [place] [address] UA Protein 100 mg/dL Abnormal Negative [facility] ([place]) Comment on above: Performed By: #### U AMIC, UA #### [place] [address] UA Spec Grav 1.015 Normal 1.006-1.029 [facility] ([place]) Comment on above: Performed By: #### U AMIC, UA #### [place] [address] UA Specimen Type Clean Catch Normal [facility] ([place]) Comment on above: Performed By: #### U AMIC, UA #### [place] [address] UA Urobilinogen 1.0 E.U./dL Normal 0.2-1.0 [facility] ([place]) Comment on above: Performed By: #### U AMIC, UA #### [place] [address] Urobilinogen (U) [Mass/Vol] Negative Normal Neg-Trace [facility] ([place]) Comment on above: Performed By: #### U AMIC, UA #### [place] [address] UAMICon 12-03-2023 UA Amorphus 4+ /hpf Normal [facility] ([place]) Comment on above: Performed By: #### U AMIC, UA #### [place] [address] UA Bacteria 4+ /hpf Abnormal Negative [facility] ([place]) Comment on above: Performed By: #### U AMIC, UA #### [place] [address] UA Mucous 4+ /hpf Normal [facility] ([place]) Comment on above: Performed By: #### U AMIC, UA #### [place] [address] UA RBC Negative Normal 0-2 [facility] ([place]) Comment on above: Performed By: #### U AMIC, UA #### [place] [address] UA Squam Epithelial Negative Normal 0-20 [facility] ([place]) Comment on above: Performed By: #### U AMIC, UA #### [place] [address] UA Uric Ac Crystals Trace Normal [facility] ([place]) Comment on above: Performed By: #### U AMIC, UA #### [place] [address] UA WBC Rare Normal 0-5 [facility] ([place]) Comment on above: Performed By: #### U AMIC, UA #### [address] [address] .Auto Diffon 12-02-2023 Basophil, Absolute 0.0 10 3/mcL Normal 0.0-0.3 [facility] [facility] ([place]) Comment on above: Performed By: #### A FINN, CBC, ADIFF, BMP, GFR #### [place] [address] Basophils/100 WBC (Bld) 0.3 % Normal 0.0-2.5 [facility] ([place]) Comment on above: Performed By: #### A FINN, CBC, ADIFF, BMP, GFR #### [place] [address] Eosinophil, Absolute 0.1 10 3/mcL Normal 0.0-0.7 [facility] ([place]) Comment on above: Performed By: #### A FINN, CBC, ADIFF, BMP, GFR #### [place] [address] Eosinophils/100 WBC (Bld) 0.8 % Normal 0.0-6.0 [facility] ([place]) Comment on above: Performed By: #### A FINN, CBC, ADIFF, BMP, GFR #### [place] [address] Lymphocyte, Absolute 1.7 10 3/mcL Normal 0.9-4.3 [facility] ([place]) Comment on above: Performed By: #### A FINN, CBC, ADIFF, BMP, GFR #### [address] [address] Lymphocytes/100 WBC (Bld) 15.1 % Low 20.0-40.0 [facility] ([place]) Comment on above: Performed By: #### A FINN, CBC, ADIFF, BMP, GFR #### [address] [address] Monocyte, Absolute 0.8 10 3/mcL Normal 0.1-1.4 [facility] ([place]) Comment on above: Performed By: #### A FINN, CBC, ADIFF, BMP, GFR #### [address] [address] Monocytes/100 WBC (Bld) 6.8 % Normal 2.0-13.0 [facility] ([place]) Comment on above: Performed By: #### A FINN, CBC, ADIFF, BMP, GFR #### [address] [address] Neutrophils/100 WBC (Bld) 77.0 % High 50.0-75.0 [facility] ([place]) Comment on above: Performed By: #### A FINN, CBC, ADIFF, BMP, GFR #### [address] [address] .GFRon 12-02-2023 GFR >60 Normal [facility] ([place]) Comment on above: Result Comment: GFR Population mean for , Non- Americans Ages 20-29 = 116 mL/min/1.73 sq.m. Ages 30-39 = 107 mL/min/1.73 sq.m. Ages 40-49 = 99 mL/min/1.73 sq.m. Ages 50-59 = 93 mL/min/1.73 sq.m. Ages 60-69 = 85 mL/min/1.73 sq.m. Ages 70+ = 75 mL/min/1.73 sq.m. Chronic Kidney Disease: Less than 60 mL/min/1.73 square meters End Stage Renal Disease: Less than 15 mL/min/1.73 square meters Performed By: #### A FINN, CBC, ADIFF, BMP, GFR #### [address] [address] GFR Non- >60 Normal [facility] ([place]) Comment on above: Result Comment: GFR Population mean for , Non- Americans Ages 20-29 = 116 mL/min/1.73 sq.m. Ages 30-39 = 107 mL/min/1.73 sq.m. Ages 40-49 = 99 mL/min/1.73 sq.m. Ages 50-59 = 93 mL/min/1.73 sq.m. Ages 60-69 = 85 mL/min/1.73 sq.m. Ages 70+ = 75 mL/min/1.73 sq.m. Chronic Kidney Disease: Less than 60 mL/min/1.73 square meters End Stage Renal Disease: Less than 15 mL/min/1.73 square meters Performed By: #### A FINN, CBC, ADIFF, BMP, GFR #### [address] [address] .NEUABSon 12-02-2023 Neutrophil, Absolute 8.8 10 3/mcL High 2.3-8.1 [facility] ([place]) Comment on above: Performed By: #### A FINN, CBC, ADIFF, BMP, GFR #### [address] [address] BMPon 12-02-2023 BUN/Creatinine Ratio 27.2 ratio High 10.0-22.0 [facility] ([place]) Comment on above: Performed By: #### A FINN, CBC, ADIFF, BMP, GFR #### [address] [address] Calcium [Mass/Vol] 9.2 mg/dL Normal 8.7-10.4 [facility] ([place]) Comment on above: Performed By: #### A FINN, CBC, ADIFF, BMP, GFR #### [address] [address] Chloride [Moles/Vol] 109 mmol/L Normal 98-110 [facility] ([place]) Comment on above: Performed By: #### A FINN, CBC, ADIFF, BMP, GFR #### [address] [address] CO2 [Moles/Vol] 24 mmol/L Normal 22-32 [facility] ([place]) Comment on above: Performed By: #### A FINN, CBC, ADIFF, BMP, GFR #### [address] [address] Creatinine [Mass/Vol] 0.81 mg/dL Normal 0.60-1.40 [facility] ([place]) Comment on above: Performed By: #### A FINN, CBC, ADIFF, BMP, GFR #### [place] [address] Electrolyte Balance 11.0 mEq/L Normal 4.0-15.0 [facility] ([place]) Comment on above: Performed By: #### A FINN, CBC, ADIFF, BMP, GFR #### [place] [address] Glucose [Mass/Vol] 107 mg/dL Normal 70-110 [facility] ([place]) Comment on above: Performed By: #### A FINN, CBC, ADIFF, BMP, GFR #### [place] [address] Potassium [Moles/Vol] 4.3 mmol/L Normal 3.5-5.0 [facility] ([place]) Comment on above: Performed By: #### A FINN, CBC, ADIFF, BMP, GFR #### [place] [id number] Sodium [Moles/Vol] 144 mmol/L Normal 136-145 [facility] ([place]) Comment on above: Performed By: #### A FINN, CBC, ADIFF, BMP, GFR #### [address] [address] Urea nitrogen [Mass/Vol] 22.0 mg/dL Normal 8.0-22.0 [facility] ([place]) Comment on above: Performed By: #### A FINN, CBC, ADIFF, BMP, GFR #### [address] [address] CBCon 12-02-2023 Erythrocyte distribution width (RBC) [Ratio] 13.8 % Normal 11.5-15.5 [facility] ([place]) Comment on above: Performed By: #### A FINN, CBC, ADIFF, BMP, GFR #### [place] [address] Hematocrit (Bld) [Volume fraction] 38.3 % Low 40.0-52.0 [facility] ([place]) Comment on above: Performed By: #### A FINN, CBC, ADIFF, BMP, GFR #### [place] [address] Hgb 12.8 G/dL Low 13.0-17.5 [facility] ([place]) Comment on above: Performed By: #### A FINN, CBC, ADIFF, BMP, GFR #### [place] [address] MCH (RBC) [Entitic mass] 27.9 pg Normal 27.0-33.0 [facility] ([place]) Comment on above: Performed By: #### A FINN, CBC, ADIFF, BMP, GFR #### [place] [address] MCHC 33.6 G/dL Normal 32.0-36.0 [facility] ([place]) Comment on above: Performed By: #### A FINN, CBC, ADIFF, BMP, GFR #### [place] [address] MCV (RBC) [Entitic vol] 83.1 fL Normal 81.0-100.0 [facility] ([place]) Comment on above: Performed By: #### A FINN, CBC, ADIFF, BMP, GFR #### [place] [address] Platelet 200 10 3/mcL Normal 150-450 [facility] ([place]) Comment on above: Performed By: #### A FINN, CBC, ADIFF, BMP, GFR #### [place] [address] Platelet mean volume (Bld) [Entitic vol] 8.8 fL Normal 6.4-10.5 [facility] ([place]) Comment on above: Performed By: #### A FINN, CBC, ADIFF, BMP, GFR #### [place] [address] RBC 4.61 10 6/mcL Normal 4.50-6.00 [facility] ([place]) Comment on above: Performed By: #### A FINN, CBC, ADIFF, BMP, GFR #### [address] [address] WBC 11.5 10 3/mcL High 4.5-10.8 [facility] ([place]) Comment on above: Performed By: #### A FINN, CBC, ADIFF, BMP, GFR #### [place] [id number] [place] [id number] HEAD OR BRAIN W/O CONTRAS Ton 12-02-2023 CT HEAD OR BRAIN W/O CONTRAST ORIGINAL EXAMINATION: CT OF THE HEAD WITHOUT CONTRAST 12/02/2023 10:40 am TECHNIQUE: CT of the head was performed without the administration of intravenous contrast. Automated exposure control, iterative reconstruction, and/or weight based adjustment of the mA/kV was utilized to reduce the radiation dose to as low as reasonably achievable. COMPARISON: CT head 11/16/2023 HISTORY: ORDERING SYSTEM PROVIDED HISTORY: Reason for Exam: pt c/o blurry vision, hx stroke 2 wks ago and brain contusion a few yrs ago Change in vision FINDINGS: BRAIN/VENTRICLES: There is no acute intracranial hemorrhage, mass effect or midline shift. No abnormal extra-axial fluid collection. 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 Prior lacunar infarct involving the anterior limb of the left internal capsule swells the caudate head. No new infarct is seen. The ventricles are mildly enlarged with commensurate enlargement of the sulci consistent with age related volume loss. Periventricular hypodensities in the cerebral white matter are nonspecific but statistically most consistent with mild chronic microvascular angiopathy. There is no evidence of hydrocephalus. ORBITS: The visualized portion of the orbits demonstrate no acute abnormality. SINUSES: Mucosal thickening and partial opacification of frontal sinus, bilateral ethmoid air cells and bilateral maxillary sinus. Mastoid air cells demonstrate no acute abnormality. SOFT TISSUES/SKULL: No acute abnormality of the visualized skull or soft tissues. 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 No new infarct is seen. Sinusitis. I have personally reviewed the images of this examination and agree with the resident's findings and interpretation. Interpreted by: Magno Sweeney Preliminary Report By: Sanjiv Tucker Electronically signed By Magno Sweeney Dictated Date: 12/02/2023 10:46:22 AM Prelim Date: 12/02/2023 11:04:37 AM Sign Date: 12/02/2023 11:04:37 AM Ordering Provider: LUCILLE Oliveira [facility] ([place]) LABORATORYOrdered By: SYSTEM SYSTEM on 12-02-2023 Basophils (Bld) [#/Vol] 0.0 103/mcL Normal 0.0 - 0.3 10^3/mcL Workflow SS Basophils/100 WBC (Bld) 0.3 % Normal 0.0 - 2.5 % AH Workflow SS Calcium [Mass/Vol] 9.2 mg/dL Normal 8.7 - 10. 4 mg/dL ADM SS Chloride [Moles/Vol] 109 mmol/L Normal 98 - 110 mEq/L ADM SS CO2 [Moles/Vol] 24 mmol/L Normal 22 - 32 mEq/L ADM SS Creatinine [Mass/Vol] 0.81 mg/dL Normal 0.60 - 1.40 mg/dL ADM SS Electrolyte Balance 11.0 mEq/L Normal 4.0 - 15 .0 mEq/L ADM SS Eosinophils (Bld) [#/Vol] 0.1 103/mcL Normal 0.0 - 0.7 10^3/mcL AH Workflow SS Eosinophils/100 WBC (Bld) 0.8 % Normal 0.0 - 6.0 % AH Workflow SS Erythrocyte distribution width (RBC) [Ratio] 13.8 % Normal 11.5 - 15.5 % Workflow SS GFR/1.73 sq M.predicted among blacks MDRD (S/P/Bld) [Vol rate/Area] ml/min/1.73sqm Invalid Interpretation Code Chemistry S Comment on above: Interpretive Data: GFR Population mean for , Non- Americans Ages 20-29 = 116 mL/min/1.73 sq.m. Ages 30-39 = 107 mL/min/1.73 sq.m. Ages 40-49 = 99 mL/min/1.73 sq.m. Ages 50-59 = 93 mL/min/1.73 sq.m. Ages 60-69 = 85 mL/min/1.73 sq.m. Ages 70+ = 75 mL/min/1.73 sq.m. Chronic Kidney Disease: Less than 60 mL/min/1.73 square meters End Stage Renal Disease: Less than 15 mL/min/1.73 square meters GFR/1.73 sq M.predicted among non-blacks MDRD (S/P/Bld) [Vol rate/Area] ml/min/1.73sqm Invalid Interpretation Code Chemistry S Comment on above: Interpretive Data: GFR Population mean for , Non- Americans Ages 20-29 = 116 mL/min/1.73 sq.m. Ages 30-39 = 107 mL/min/1.73 sq.m. Ages 40-49 = 99 mL/min/1.73 sq.m. Ages 50-59 = 93 mL/min/1.73 sq.m. Ages 60-69 = 85 mL/min/1.73 sq.m. Ages 70+ = 75 mL/min/1.73 sq.m. Chronic Kidney Disease: Less than 60 mL/min/1.73 square meters End Stage Renal Disease: Less than 15 mL/min/1.73 square meters Glucose [Mass/Vol] 107 mg/dL Normal 70 - 110 mg/dL ADM SS Hematocrit (Bld) [Volume fraction] 38.3 % Low 40.0 - 52.0 % AH Workflow SS Hemoglobin (Bld) [Mass/Vol] 12.8 G/dL Low 13.0 - 17.5 G/dL AH Workflow SS Lymphocytes (Bld) [#/Vol] 1.7 103/mcL Normal 0.9 - 4.3 10^3/mcL AH Workflow SS Lymphocytes/100 WBC (Bld) 15.1 % Low 20.0 - 40.0 % AH Workflow SS MCH (RBC) [Entitic mass] 27.9 pg Normal 27.0 - 33.0 pg AH Workflow SS MCHC 33.6 G/dL Normal 32.0 - 36.0 G/dL AH Workflow SS MCV (RBC) [Entitic vol] 83.1 fL Normal 81.0 - 100.0 fL AH Workflow SS Monocytes (Bld) [#/Vol] 0.8 103/mcL Normal 0.1 - 1.4 10^3/mcL AH Workflow SS Monocytes/100 WBC (Bld) 6.8 % Normal 2.0 - 13.0 % AH Workflow SS Neutrophils (Bld) [#/Vol] 8.8 103/mcL High 2.3 - 8.1 10^3/mcL Workflow SS Neutrophils/100 WBC (Bld) 77.0 % High 50.0 - 75.0 % Workflow SS Platelet mean volume (Bld) [Entitic vol] 8.8 fL Normal 6.4 - 10.5 fL Workflow SS Platelets (Bld) [#/Vol] 200 103/mcL Normal 150 - 450 10^3/mcL Workflow SS Potassium [Moles/Vol] 4.3 mmol/L Normal 3.5 - 5.0 mEq/L ADM SS RBC (Bld) [#/Vol] 4.61 106/mcL Normal 4.50 - 6.0 0 10^6/mcL Workflow SS Sodium [Moles/Vol] 144 mmol/L Normal 136 - 145 mEq/L ADM SS Urea nitrogen [Mass/Vol] 22.0 mg/dL Normal 8.0 - 22.0 mg/dL ADM SS Urea nitrogen/Creatinine [Mass ratio] 27.2 ratio High 10.0 - 22.0 ratio ADM SS WBC (Bld) [#/Vol] 11.5 103/mcL High 4.5 - 10.8 10^3/mcL Workflow SS LABORATORYOrdered By: Sherrie Cuadra on 12-02-2023 Blood Glucose Interventions Retest (12/02/23 2:30 PM) [facility] No Panel InformationOrdered By: Sherrie Cuadra on 12-02-2023 Blood Glucose Interventions Administered food/juice, Administered agent to increase blood sugar, Notify physician (12/02/23 1:49 PM) [facility] XR CHEST 1 VIEWon 12-02-2023 XR CHEST 1 VIEW ORIGINAL EXAMINATION: ONE XRAY VIEW OF THE CHEST12/02/2023 2:52 pm COMPARISON: Chest x-rays dated 11/30/2023, 11/28/2023 HISTORY: ORDERING SYSTEM PROVIDED HISTORY: Reason for Exam: New need for oxygen, shortness of breath FINDINGS: Portable AP x-ray, patient rotated. Poor inspiration. Heart and mediastinum: Cardiomediastinal silhouette is unremarkable and stable from prior. Lungs and pleura: Lung parenchyma is relatively dense and due to poor inspiration. No pleural effusion, pulmonary edema, or visible pneumothorax. Bones: No acute bony abnormalities appreciated. IMPRESSION: No visible acute radiographic findings. I have personally reviewed the images of this examination and agree with the resident's findings and interpretation. Interpreted by: Ayaz Pedraza MD Preliminary Report By: Ray Clemente Electronically signed By Ayaz Pedraza MD Dictated Date: 12/02/2023 3:17:20 PM Prelim Date: 12/02/2023 3:23:54 PM Sign Date: 12/02/2023 3:23:54 PM Ordering Provider: LUCILLE Oliveira [facility] ([place]) CVFLURVocatherine 11-30-2023 FLU A PCR Negative Normal Negative [facility]) Comment on above: Result Comment: [place] [id number] Performed By: #### A FINN, CBC, ADIFF, BMP, GFR #### [address] [address] FLU B PCR Negative Normal Negative [facility]) Comment on above: Result Comment: [place] [id number] Performed By: #### A FINN, CBC, ADIFF, BMP, GFR #### [address] [address] RSV PCR Negative Normal Negative [facility]) Comment on above: Result Comment: [place] [id number] Performed By: #### A FINN, CBC, ADIFF, BMP, GFR #### [address] [address] SARS-CoV-2 (COVID-19) RNA SRAVAN+probe Ql (Unsp spec) Negative Normal Negative [facility]) Comment on above: Result Comment: Note s [id number] This test has been authorized by FDA under an EUA for use by authorized laboratories and has not been FDA cleared or approved. Results from the Xpert Xpress SARS-CoV-2/Flu/RSV or Xpert Xpress SARS-CoV-2 only test should be correlated with the clinical history, epidemiological data, and other data available to the clinician evaluating the patient. Performance of the Xpert Xpress SARS-CoV-2/Flu/RSV or Xpert Xpress SARS-CoV-2 only test has only been established in nasopharyngeal swab specimens. Erroneous test results might occur from improper specimen collection; failure to follow the recommended sample collection, handling, and storage procedures; technical error; or sample mix-up.False negative results may occur if virus is present at levels below the analytical limit of detection. Viral nucleic acid may persist in vivo, independent of virus viability. Detection of analyte target(s) does not imply that the corresponding virus(es) are infectious or are the causative agents for clinical symptoms.Recent patient exposure to FluMist or other live attenuated influenza vaccines may cause inaccurate positive results. Performed By: #### A FINN, CBC, ADIFF, BMP, GFR #### [place] [address] LABORATORYOrdered By: Derek Sultana on 11-30-2023 FLUAV RNA SRAVAN+probe Ql (Resp) Negative 3 (11/30/23 3:03 PM) Normal Negative AH Auto Viro/Sero SS Comment on above: Result Comment: [place] [id number] FLUBV RNA SRAVAN+probe Ql (Resp) Negative 4 (11/30/23 3:03 PM) Normal Negative AH Auto Viro/Sero SS Comment on above: Result Comment: [place] [id number] RSV PCR Negative 5 (11/30/23 3:03 PM) Normal Negative AH Auto Viro/Sero SS Comment on above: Result Comment: [place] [id number] SARS-CoV-2 (COVID-19) RNA SRAVAN+probe Ql (Resp) Negative 1, 2 (11/30/23 3:03 PM) Normal Negative AH Auto Viro/Sero SS Comment on above: Result Comment: [place] [id number] Interpretive Data: T his test has been authorized by FDA under an EUA for use by authorized laboratories and has not been FDA cleared or approved. Results from the Xpert Xpress SARS-CoV-2/Flu/RSV or Xpert Xpress SARS-CoV-2 only test should be correlated with the clinical history, epidemiological data, and other data available to the clinician evaluating the patient. Performance of the Xpert Xpress SARS-CoV-2/Flu/RSV or Xpert Xpress SARS-CoV-2 only test has only been established in nasopharyngeal swab specimens. Erroneous test results might occur from improper specimen collection; failure to follow the recommended sample collection, handling, and storage procedures; technical error; or sample mix-up.False negative results may occur if virus is present at levels below the analytical limit of detection. Viral nucleic acid may persist in vivo, independent of virus viability. Detection of analyte target(s) does not imply that the corresponding virus(es) are infectious or are the causative agents for clinical symptoms.Recent patient exposure to FluMist or other live attenuated influenza vaccines may cause inaccurate positive results. XR CHEST 1 VIEWon 11-30-2023 XR CHEST 1 VIEW ORIGINAL EXAMINATION: ONE XRAY VIEW OF THE CHEST11/30/2023 9:45 am CHEST ONE VIEW AP/PA COMPARISON: 11/28/2023. HISTORY: ORDERING SYSTEM PROVIDED HISTORY: Reason for Exam: Shortness of breath FINDINGS: Heart size and vascularity are within normal limits. The lungs are clear of focal consolidation. No effusion, pneumothorax, or acute osseous abnormality. IMPRESSION: No radiographic evidence of acute cardiopulmonary process. Interpreted by: Ayaz Pedraza MD Preliminary Report By: Ayaz Pedraza MD Electronically signed By Ayaz Pedraza MD Dictated Date: 11/30/2023 10:03:42 AM Prelim Date: 11/30/2023 10:03:59 AM Sign Date: 11/30/2023 10:03:59 AM Ordering Provider: LUCILLE Oliveira [facility] ([place]) .Auto Diffon 11-29-2023 Basophil, Absolute 0.0 10 3/mcL Normal 0.0-0.3 [facility] ([place]) Comment on above: Performed By: #### A FINN, CBC, ADIFF, BMP, GFR #### [address] [address] Basophils/100 WBC (Bld) 0.3 % Normal 0.0-2.5 [facility] ([place]) Comment on above: Performed By: #### A FINN, CBC, ADIFF, BMP, GFR #### [address] [address] Eosinophil, Absolute 0.3 10 3/mcL Normal 0.0-0.7 [facility] ([place]) Comment on above: Performed By: #### A FINN, CBC, ADIFF, BMP, GFR #### [address] [address] Eosinophils/100 WBC (Bld) 4.2 % Normal 0.0-6.0 [facility] ([place]) Comment on above: Performed By: #### A FINN, CBC, ADIFF, BMP, GFR #### [address] [address] Lymphocyte, Absolute 2.2 10 3/mcL Normal 0.9-4.3 [facility] ([place]) Comment on above: Performed By: #### A FINN, CBC, ADIFF, BMP, GFR #### [address] [address] Lymphocytes/100 WBC (Bld) 28.5 % Normal 20.0-40.0 [facility] ([place]) Comment on above: Performed By: #### A FINN, CBC, ADIFF, BMP, GFR #### [address] [address] Monocyte, Absolute 0.8 10 3/mcL Normal 0.1-1.4 [facility] ([place]) Comment on above: Performed By: #### A FINN, CBC, ADIFF, BMP, GFR #### [address] [address] Monocytes/100 WBC (Bld) 10.0 % Normal 2.0-13.0 [facility] ([place]) Comment on above: Performed By: #### A FINN, CBC, ADIFF, BMP, GFR #### [address] [address] Neutrophils/100 WBC (Bld) 57.0 % Normal 50.0-75.0 [facility] ([place]) Comment on above: Performed By: #### A FINN, CBC, ADIFF, BMP, GFR #### [address] [address] .GFRon 11-29-2023 GFR >60 Normal [facility] ([place]) Comment on above: Result Comment: GFR Population mean for , Non- Americans Ages 20-29 = 116 mL/min/1.73 sq.m. Ages 30-39 = 107 mL/min/1.73 sq.m. Ages 40-49 = 99 mL/min/1.73 sq.m. Ages 50-59 = 93 mL/min/1.73 sq.m. Ages 60-69 = 85 mL/min/1.73 sq.m. Ages 70+ = 75 mL/min/1.73 sq.m. Chronic Kidney Disease: Less than 60 mL/min/1.73 square meters End Stage Renal Disease: Less than 15 mL/min/1.73 square meters Performed By: #### A FINN, CBC, ADIFF, BMP, GFR #### [address] [address] GFR Non- >60 Normal [facility] ([place]) Comment on above: Result Comment: GFR Population mean for , Non- Americans Ages 20-29 = 116 mL/min/1.73 sq.m. Ages 30-39 = 107 mL/min/1.73 sq.m. Ages 40-49 = 99 mL/min/1.73 sq.m. Ages 50-59 = 93 mL/min/1.73 sq.m. Ages 60-69 = 85 mL/min/1.73 sq.m. Ages 70+ = 75 mL/min/1.73 sq.m. Chronic Kidney Disease: Less than 60 mL/min/1.73 square meters End Stage Renal Disease: Less than 15 mL/min/1.73 square meters Performed By: #### A FINN, CBC, ADIFF, BMP, GFR #### [address] [address] .NEUABSon 11-29-2023 Neutrophil, Absolute 4.4 10 3/mcL Normal 2.3-8.1 [facility] ([place]) Comment on above: Performed By: #### A FINN, CBC, ADIFF, BMP, GFR #### [address] [address] BMPon 11-29-2023 BUN/Creatinine Ratio 26.2 ratio High 10.0-22.0 [facility] ([place]) Comment on above: Performed By: #### A FINN, CBC, ADIFF, BMP, GFR #### [address] [address] Calcium [Mass/Vol] 9.5 mg/dL Normal 8.7-10.4 [facility] ([place]) Comment on above: Performed By: #### A FINN, CBC, ADIFF, BMP, GFR #### [address] [address] Chloride [Moles/Vol] 106 mmol/L Normal 98-110 [facility] ([place]) Comment on above: Performed By: #### A FINN, CBC, ADIFF, BMP, GFR #### [address] [address] CO2 [Moles/Vol] 28 mmol/L Normal 22-32 [facility] ([place]) Comment on above: Performed By: #### A FINN, CBC, ADIFF, BMP, GFR #### [address] [address] Creatinine [Mass/Vol] 0.80 mg/dL Normal 0.60-1.40 [facility] ([place]) Comment on above: Performed By: #### A FINN, CBC, ADIFF, BMP, GFR #### [address] [address] Electrolyte Balance 5.0 mEq/L Normal 4.0-15.0 [facility] ([place]) Comment on above: Performed By: #### A FINN, CBC, ADIFF, BMP, GFR #### [address] [address] Glucose [Mass/Vol] 144 mg/dL High 70-110 [facility] ([place]) Comment on above: Performed By: #### A FINN, CBC, ADIFF, BMP, GFR #### [address] [address] Potassium [Moles/Vol] 4.2 mmol/L Normal 3.5-5.0 [facility] ([place]) Comment on above: Performed By: #### A FINN, CBC, ADIFF, BMP, GFR #### [address] [address] Sodium [Moles/Vol] 139 mmol/L Normal 136-145 [facility] ([place] Comment on above: Performed By: #### A FINN, CBC, ADIFF, BMP, GFR #### [address] [address] Urea nitrogen [Mass/Vol] 21.0 mg/dL Normal 8.0-22.0 [facility] ([place]) Comment on above: Performed By: #### A FINN, CBC, ADIFF, BMP, GFR #### [address] [address] CBCon 11-29-2023 Erythrocyte distribution width (RBC) [Ratio] 14.4 % Normal 11.5-15.5 [facility] ([place]) Comment on above: Performed By: #### A FINN, CBC, ADIFF, BMP, GFR #### [place] [address] Hematocrit (Bld) [Volume fraction] 41.9 % Normal 40.0-52.0 [facility] ([place]) Comment on above: Performed By: #### A FINN, CBC, ADIFF, BMP, GFR #### [address] [address] Hgb 14.1 G/dL Normal 13.0-17.5 [facility] ([place]) Comment on above: Performed By: #### A FINN, CBC, ADIFF, BMP, GFR #### [address] [address] MCH (RBC) [Entitic mass] 27.9 pg Normal 27.0-33.0 [facility] ([place]) Comment on above: Performed By: #### A FINN, CBC, ADIFF, BMP, GFR #### [place] [id number] MCHC 33.6 G/dL Normal 32.0-36.0 [facility] ([place]) Comment on above: Performed By: #### A FINN, CBC, ADIFF, BMP, GFR #### [place] [address] MCV (RBC) [Entitic vol] 82.9 fL Normal 81.0-100.0 [facility] ([place]) Comment on above: Performed By: #### A FINN, CBC, ADIFF, BMP, GFR #### [place] [id number] Platelet 208 10 3/mcL Normal 150-450 [facility] ([place]) Comment on above: Performed By: #### A FINN, CBC, ADIFF, BMP, GFR #### [address] [address] Platelet mean volume (Bld) [Entitic vol] 8.8 fL Normal 6.4-10.5 [facility] ([place]) Comment on above: Performed By: #### A FINN, CBC, ADIFF, BMP, GFR #### [place] [address] RBC 5.06 10 6/mcL Normal 4.50-6.00 [facility] ([place]) Comment on above: Performed By: #### A FINN, CBC, ADIFF, BMP, GFR #### [place] [id number] WBC 7.6 10 3/mcL Normal 4.5-10.8 [facility] ([place]) Comment on above: Performed By: #### A FINN, CBC, ADIFF, BMP, GFR #### [place] [address] LABORATORYOrdered By: SYSTEM SYSTEM on 11-29-2023 Calcium [Mass/Vol] 9.5 mg/dL Normal 8.7 - 10. 4 mg/dL ADM SS Chloride [Moles/Vol] 106 mmol/L Normal 98 - 110 mEq/L ADM SS CO2 [Moles/Vol] 28 mmol/L Normal 22 - 32 mEq/L ADM SS Creatinine [Mass/Vol] 0.80 mg/dL Normal 0.60 - 1.40 mg/dL ADM SS Electrolyte Balance 5.0 mEq/L Normal 4.0 - 15 .0 mEq/L ADM SS GFR/1.73 sq M.predicted among blacks MDRD (S/P/Bld) [Vol rate/Area] ml/min/1.73sqm Invalid Interpretation Code Chemistry S Comment on above: Interpretive Data: GFR Population mean for , Non- Americans Ages 20-29 = 116 mL/min/1.73 sq.m. Ages 30-39 = 107 mL/min/1.73 sq.m. Ages 40-49 = 99 mL/min/1.73 sq.m. Ages 50-59 = 93 mL/min/1.73 sq.m. Ages 60-69 = 85 mL/min/1.73 sq.m. Ages 70+ = 75 mL/min/1.73 sq.m. Chronic Kidney Disease: Less than 60 mL/min/1.73 square meters End Stage Renal Disease: Less than 15 mL/min/1.73 square meters GFR/1.73 sq M.predicted among non-blacks MDRD (S/P/Bld) [Vol rate/Area] ml/min/1.73sqm Invalid Interpretation Code Chemistry S Comment on above: Interpretive Data: GFR Population mean for , Non- Americans Ages 20-29 = 116 mL/min/1.73 sq.m. Ages 30-39 = 107 mL/min/1.73 sq.m. Ages 40-49 = 99 mL/min/1.73 sq.m. Ages 50-59 = 93 mL/min/1.73 sq.m. Ages 60-69 = 85 mL/min/1.73 sq.m. Ages 70+ = 75 mL/min/1.73 sq.m. Chronic Kidney Disease: Less than 60 mL/min/1.73 square meters End Stage Renal Disease: Less than 15 mL/min/1.73 square meters Glucose [Mass/Vol] 144 mg/dL High 70 - 110 mg/dL AH ADM SS Potassium [Moles/Vol] 4.2 mmol/L Normal 3.5 - 5.0 mEq/L AH ADM SS Sodium [Moles/Vol] 139 mmol/L Normal 136 - 145 mEq/L AH ADM SS Urea nitrogen [Mass/Vol] 21.0 mg/dL Normal 8.0 - 22.0 mg/dL ADM SS Urea nitrogen/Creatinine [Mass ratio] 26.2 ratio High 10.0 - 22.0 ratio AH ADM SS No Panel InformationOrdered By: Helena Guerin on 11-28-2023 Culture Respiratory with Gram Stain Normal respiratory juan manuel present. Sensitivity testing not indicated. Deena Watt Comment on above: Requests for Mycopla sma, Legionella, Fungi, Mycobacteria, Chlamydia, and Viruses require ordering of those individual tests. GS Predominance of polys Rare Gram Positive Cocci Deena Watt Comment on above: Requests for Mycopla sma, Legionella, Fungi, Mycobacteria, Chlamydia, and Viruses require ordering of those individual tests. XR CHEST 1 VIEWon 11-28-2023 XR CHEST 1 VIEW ORIGINAL EXAMINATION: ONE XRAY VIEW OF THE CHEST 11/28/2023 12:23 pm COMPARISON: None. HISTORY: ORDERING SYSTEM PROVIDED HISTORY: Reason for Exam: cough FINDINGS: The lungs are without acute focal process. There is no effusion or pneumothorax. The cardiomediastinal silhouette is without acute process. The osseous structures are without acute process. IMPRESSION: No acute process. There is poor inspiratory effort. Interpreted by: Chuckie Short DO Preliminary Report By: Chuckie Short DO Electronically signed By Chuckie Short DO Dictated Date: 11/28/2023 12:32:28 PM Prelim Date: 11/28/2023 12:32:51 PM Sign Date: 11/28/2023 12:32:51 PM Ordering Provider: TEJINDER SOTO [facility] ([place]) [facility] [place] [facility] [place] Send Out See Comments [facility]) Comment on above: Order Comment: Total Protein S antigen to [facility] laboratory Result Comment: Comp lete reference lab report scanned to EMR. Performed By: #### A FINN, CBC, ADIFF, BMP, GFR #### [address] [address] .Auto Diffon 11-20-2023 Basophil, Absolute 0.0 10 3/mcL Normal 0.0-0.3 [facility]) Comment on above: Performed By: #### U AMIC, UA #### [address] [address] Basophils/100 WBC (Bld) 0.6 % Normal 0.0-2.5 [facility] ([place]) Comment on above: Performed By: #### U AMIC, UA #### [address] [address] Eosinophil, Absolute 0.2 10 3/mcL Normal 0.0-0.7 [facility] ([place]) Comment on above: Performed By: #### U AMIC, UA #### [address] [address] Eosinophils/100 WBC (Bld) 2.0 % Normal 0.0-6.0 [facility] ([place]) Comment on above: Performed By: #### U AMIC, UA #### [facility] [address] [place] [address] Lymphocyte, Absolute 1.9 10 3/mcL Normal 0.9-4.3 [facility] ([place]) Comment on above: Performed By: #### U AMIC, UA #### [facility] [address] [place] [address] Lymphocytes/100 WBC (Bld) 23.2 % Normal 20.0-40.0 [facility] ([place]) Comment on above: Performed By: #### U AMIC, UA #### [address] [address] Monocyte, Absolute 0.6 10 3/mcL Normal 0.1-1.4 [facility] ([place]) Comment on above: Performed By: #### U AMIC, UA #### [address] [address] Monocytes/100 WBC (Bld) 7.1 % Normal 2.0-13.0 [facility] ([place]) Comment on above: Performed By: #### U AMIC, UA #### [address] [address] Neutrophils/100 WBC (Bld) 67.1 % Normal 50.0-75.0 [facility] ([place]) Comment on above: Performed By: #### U AMIC, UA #### [address] [address] .GFRon 11-20-2023 GFR >60 Normal [facility] ([place]) Comment on above: Result Comment: GFR Population mean for , Non- Americans Ages 20-29 = 116 mL/min/1.73 sq.m. Ages 30-39 = 107 mL/min/1.73 sq.m. Ages 40-49 = 99 mL/min/1.73 sq.m. Ages 50-59 = 93 mL/min/1.73 sq.m. Ages 60-69 = 85 mL/min/1.73 sq.m. Ages 70+ = 75 mL/min/1.73 sq.m. Chronic Kidney Disease: Less than 60 mL/min/1.73 square meters End Stage Renal Disease: Less than 15 mL/min/1.73 square meters Performed By: #### Juice RIGGINSC, UA #### [address] [address] GFR Non- >60 Normal [facility] ([place]) Comment on above: Result Comment: GFR Population mean for , Non- Americans Ages 20-29 = 116 mL/min/1.73 sq.m. Ages 30-39 = 107 mL/min/1.73 sq.m. Ages 40-49 = 99 mL/min/1.73 sq.m. Ages 50-59 = 93 mL/min/1.73 sq.m. Ages 60-69 = 85 mL/min/1.73 sq.m. Ages 70+ = 75 mL/min/1.73 sq.m. Chronic Kidney Disease: Less than 60 mL/min/1.73 square meters End Stage Renal Disease: Less than 15 mL/min/1.73 square meters Performed By: #### Juice MYERS, UA #### [place] [address] .NEUABSon 11-20-2023 Neutrophil, Absolute 5.5 10 3/mcL Normal 2.3-8.1 [facility] ([place]) Comment on above: Performed By: #### Juice MYERS, UA #### [place] [id number] 11-20-2023 B2 Glyco I IgG Ab <9 Normal 0-20 [facility] ([place]) Comment on above: Result Comment: The reference interval reflects a 3SD or 99th percentile interval, which is thought to represent a potentially clinically significant result in accordance with the International Consensus Statement on the classification criteria for definitive antiphospholipid syndrome (APS). J Thromb Haem 2006;4:295-306. Performed By: #### A FINN, CBC, ADIFF, BMP, GFR #### [place] [id number] B2 Glyco I IgM Ab <9 Normal 0-32 [facility] ([place]) Comment on above: Result Comment: The reference interval reflects a 3SD or 99th percentile interval, which is thought to represent a potentially clinically significant result in accordance with the International Consensus Statement on the classification criteria for definitive antiphospholipid syndrome (APS). J Thromb Haem 2006;4:295-306. Performed At: [facility] [id number] Deniz Godfrey MD Ph:[phone] Performed By: #### A FINN, CBC, ADIFF, BMP, GFR #### [address] [address] BMPon 11-20-2023 BUN/Creatinine Ratio 24.3 ratio High 10.0-22.0 [facility] ([place]) Comment on above: Performed By: #### U AMIC, UA #### [address] [address] Calcium [Mass/Vol] 9.1 mg/dL Normal 8.7-10.4 [facility] ([place]) Comment on above: Performed By: #### U AMIC, UA #### [address] [address] Chloride [Moles/Vol] 110 mmol/L Normal 98-110 [facility] ([place]) Comment on above: Performed By: #### U AMIC, UA #### [address] [address] CO2 [Moles/Vol] 26 mmol/L Normal 22-32 [facility] ([place]) Comment on above: Performed By: #### U AMIC, UA #### [address] [address] Creatinine [Mass/Vol] 0.70 mg/dL Normal 0.60-1.40 [facility] ([place]) Comment on above: Performed By: #### U AMIC, UA #### [address] [address] Electrolyte Balance 5.0 mEq/L Normal 4.0-15.0 [facility] ([place]) Comment on above: Performed By: #### U AMIC, UA #### [address] [address] Glucose [Mass/Vol] 152 mg/dL High 70-110 [facility] ([place]) Comment on above: Performed By: #### U AMIC, UA #### [address] [address] Potassium [Moles/Vol] 4.5 mmol/L Normal 3.5-5.0 [facility] ([place]) Comment on above: Performed By: #### U AMIC, UA #### [address] [address] Sodium [Moles/Vol] 141 mmol/L Normal 136-145 [facility] ([place]) Comment on above: Performed By: #### U AMIC, UA #### [address] [address] Urea nitrogen [Mass/Vol] 17.0 mg/dL Normal 8.0-22.0 [facility] ([place]) Comment on above: Performed By: #### U AMIC, UA #### [address] [address] CBCon 11-20-2023 Erythrocyte distribution width (RBC) [Ratio] 14.2 % Normal 11.5-15.5 [facility] ([place]) Comment on above: Performed By: #### U AMIC, UA #### [address] [address] Hematocrit (Bld) [Volume fraction] 40.8 % Normal 40.0-52.0 [facility] ([place]) Comment on above: Performed By: #### U AMIC, UA #### [address] [address] Hgb 14.1 G/dL Normal 13.0-17.5 [facility] ([place]) Comment on above: Performed By: #### U AMIC, UA #### [address] [address] MCH (RBC) [Entitic mass] 28.3 pg Normal 27.0-33.0 [facility] ([place]) Comment on above: Performed By: #### U AMIC, UA #### [address] [address] MCHC 34.5 G/dL Normal 32.0-36.0 [facility] ([place]) Comment on above: Performed By: #### U AMIC, UA #### [address] [address] MCV (RBC) [Entitic vol] 82.0 fL Normal 81.0-100.0 [facility] ([place]) Comment on above: Performed By: #### U AMIC, UA #### [address] [address] Platelet 167 10 3/mcL Normal 150-450 [facility] ([place]) Comment on above: Performed By: #### U AMIC, UA #### [address] [address] Platelet mean volume (Bld) [Entitic vol] 8.5 fL Normal 6.4-10.5 [facility] ([place]) Comment on above: Performed By: #### U AMIC, UA #### [address] [address] RBC 4.97 10 6/mcL Normal 4.50-6.00 [facility] ([place]) Comment on above: Performed By: #### U AMIC, UA #### [address] [address] WBC 8.2 10 3/mcL Normal 4.5-10.8 [facility] ([place] Comment on above: Performed By: #### U AMIC, UA #### [address] [address] .Auto Diffon 11-19-2023 Basophil, Absolute 0.0 10 3/mcL Normal 0.0-0.3 [facility] ([place]) Comment on above: Performed By: #### A FINN, CBC, ADIFF, BMP, GFR #### [address] [address] Basophils/100 WBC (Bld) 0.4 % Normal 0.0-2.5 [facility] ([place]) Comment on above: Performed By: #### A FINN, CBC, ADIFF, BMP, GFR #### [address] [address] Eosinophil, Absolute 0.2 10 3/mcL Normal 0.0-0.7 [facility] ([place]) Comment on above: Performed By: #### A FINN, CBC, ADIFF, BMP, GFR #### [address] [address] Eosinophils/100 WBC (Bld) 2.6 % Normal 0.0-6.0 [facility] ([place]) Comment on above: Performed By: #### A FINN, CBC, ADIFF, BMP, GFR #### [address] [address] Lymphocyte, Absolute 2.2 10 3/mcL Normal 0.9-4.3 [facility] ([place]) Comment on above: Performed By: #### A FINN, CBC, ADIFF, BMP, GFR #### [address] [address] Lymphocytes/100 WBC (Bld) 23.1 % Normal 20.0-40.0 [facility] ([place]) Comment on above: Performed By: #### A FINN, CBC, ADIFF, BMP, GFR #### [address] [address] Monocyte, Absolute 0.6 10 3/mcL Normal 0.1-1.4 [facility] ([place]) Comment on above: Performed By: #### A FINN, CBC, ADIFF, BMP, GFR #### [address] [address] Monocytes/100 WBC (Bld) 6.2 % Normal 2.0-13.0 [facility] ([place]) Comment on above: Performed By: #### A FINN, CBC, ADIFF, BMP, GFR #### [address] [address] Neutrophils/100 WBC (Bld) 67.7 % Normal 50.0-75.0 [facility] ([place]) Comment on above: Performed By: #### A FINN, CBC, ADIFF, BMP, GFR #### [address] [address] .CCLPTGENon 11-19-2023 PT Gene Mut Prothrombin Gene Mutation Normal [facility] ([place]) Comment on above: Result Comment: Yohana nix Accession Number: [id number] Result: NORMAL Interpretation: The DNA sample is negative for the c.*97G>A variant (legacy name 74169N>A) in the 3' untranslated region of the Factor II (F2) gene. This result is not associated with an increased risk of thromboembolic disease. Thromboembolic disease is a multifactorial disorder and other causes are not excluded by this result. Methodology: Isolated Genomic DNA from the patient's blood specimen is evaluated for the c*97G>A ([id number]) variant of the F2 gene [RefSeq [id number];GRCh38/hg38] by multiplex polymerase chain reaction (PCR) followed by melting curve analysis. Limitations: This assay is designed to detect the c.*97G>A (61757D>A) variant in the F2 gene. Uncommon variants or single nucleotide polymorphisms may affect binding of probes and may rarely result in false negative, false positive or indeterminate results. This assay does not detect other disease-associated rare variants in F2 or other causes of thromboembolic disease. Disclaimer: This test was developed and its performance characteristics determined by [facility]'s [facility] [place] ([facility] It has not been cleared or approved by the FDA. [facility] is regulated under CLIA as certified to perform high- complexity testing. This test is used for clinical purposes. It should not be regarded as investigational or for research. Testing and interpretation performed at [facility], [address] [place] [address]. CLIA Number: [id number] References: 1) Inheritied Thrombophilias in . ACOG Practice Bulletin. No. 197. [place] [employer]. Obsete Gynecol 2018;132:e18-34. 2) Poojat SR, Jasiel FR, Reyamilka PH, and Josefina HERZOG. A common genetic variation in the 3'-untranslated region of the prothrombin gene is associated with elevated plasma prothrombin levels and an increase in venous thrombosis. Blood 88:3698-703, 1996. 3) Peggy I, Emerson V, Marycarmen C, Marco K. Prothrombin 20484S>T: 16 new cases, association with the 70948E>G polymorphism, and literature review. J Thromb Haemost. 2009;9:1585-7. As reviewed by Ashtyn Dickerson MD Performed By: [facility] [employer] [facility] [address] [place] [address] Human Resources Manager: Scott DIALLO#: [id number] Performed By: #### A FINN, CBC, ADIFF, BMP, GFR #### [address] [address] .GFRon 11-19-2023 GFR >60 Normal [facility] ([place]) Comment on above: Result Comment: GFR Population mean for , Non- Americans Ages 20-29 = 116 mL/min/1.73 sq.m. Ages 30-39 = 107 mL/min/1.73 sq.m. Ages 40-49 = 99 mL/min/1.73 sq.m. Ages 50-59 = 93 mL/min/1.73 sq.m. Ages 60-69 = 85 mL/min/1.73 sq.m. Ages 70+ = 75 mL/min/1.73 sq.m. Chronic Kidney Disease: Less than 60 mL/min/1.73 square meters End Stage Renal Disease: Less than 15 mL/min/1.73 square meters Performed By: #### A FINN, CBC, ADIFF, BMP, GFR #### [address] [address] GFR Non- >60 Normal [facility] ([place]) Comment on above: Result Comment: GFR Population mean for , Non- Americans Ages 20-29 = 116 mL/min/1.73 sq.m. Ages 30-39 = 107 mL/min/1.73 sq.m. Ages 40-49 = 99 mL/min/1.73 sq.m. Ages 50-59 = 93 mL/min/1.73 sq.m. Ages 60-69 = 85 mL/min/1.73 sq.m. Ages 70+ = 75 mL/min/1.73 sq.m. Chronic Kidney Disease: Less than 60 mL/min/1.73 square meters End Stage Renal Disease: Less than 15 mL/min/1.73 square meters Performed By: #### A FINN, CBC, ADIFF, BMP, GFR #### [address] [address] .NEUABSon 11-19-2023 Neutrophil, Absolute 6.4 10 3/mcL Normal 2.3-8.1 [facility] ([place]) Comment on above: Performed By: #### A FINN, CBC, ADIFF, BMP, GFR #### [address] [address] BMPon 11-19-2023 BUN/Creatinine Ratio 21.7 ratio Normal 10.0-22.0 [facility] ([place]) Comment on above: Performed By: #### A FINN, CBC, ADIFF, BMP, GFR #### [place] [id number] Calcium [Mass/Vol] 9.3 mg/dL Normal 8.7-10.4 [facility] ([place]) Comment on above: Performed By: #### A FINN, CBC, ADIFF, BMP, GFR #### [place] [address] Chloride [Moles/Vol] 109 mmol/L Normal 98-110 [facility] ([place]) Comment on above: Performed By: #### A FINN, CBC, ADIFF, BMP, GFR #### [place] [address] CO2 [Moles/Vol] 28 mmol/L Normal 22-32 [facility] ([place]) Comment on above: Performed By: #### A FINN, CBC, ADIFF, BMP, GFR #### [place] [address] Creatinine [Mass/Vol] 0.69 mg/dL Normal 0.60-1.40 [facility] ([place]) Comment on above: Performed By: #### A FINN, CBC, ADIFF, BMP, GFR #### [place] [address] Electrolyte Balance 5.0 mEq/L Normal 4.0-15.0 [facility] ([place]) Comment on above: Performed By: #### A FINN, CBC, ADIFF, BMP, GFR #### [place] [id number] Glucose [Mass/Vol] 122 mg/dL High 70-110 [facility] ([place]) Comment on above: Performed By: #### A FINN, CBC, ADIFF, BMP, GFR #### [place] [address] Potassium [Moles/Vol] 4.1 mmol/L Normal 3.5-5.0 [facility] ([place]) Comment on above: Performed By: #### A FINN, CBC, ADIFF, BMP, GFR #### [place] [id number] Sodium [Moles/Vol] 142 mmol/L Normal 136-145 [facility] ([place]) Comment on above: Performed By: #### A FINN, CBC, ADIFF, BMP, GFR #### [place] [address] Urea nitrogen [Mass/Vol] 15.0 mg/dL Normal 8.0-22.0 [facility] ([place]) Comment on above: Performed By: #### A FINN, CBC, ADIFF, BMP, GFR #### [place] [address] CBCon 11-19-2023 Erythrocyte distribution width (RBC) [Ratio] 14.0 % Normal 11.5-15.5 [facility] ([place]) Comment on above: Performed By: #### A FINN, CBC, ADIFF, BMP, GFR #### [place] [id number] Hematocrit (Bld) [Volume fraction] 40.2 % Normal 40.0-52.0 [facility] ([place]) Comment on above: Performed By: #### A FINN, CBC, ADIFF, BMP, GFR #### [place] [address] Hgb 13.8 G/dL Normal 13.0-17.5 [facility] ([place]) Comment on above: Performed By: #### A FINN, CBC, ADIFF, BMP, GFR #### [place] [address] MCH (RBC) [Entitic mass] 28.5 pg Normal 27.0-33.0 [facility] ([place]) Comment on above: Performed By: #### A FINN, CBC, ADIFF, BMP, GFR #### [place] [address] MCHC 34.4 G/dL Normal 32.0-36.0 [facility] ([place]) Comment on above: Performed By: #### A FINN, CBC, ADIFF, BMP, GFR #### [place] [address] MCV (RBC) [Entitic vol] 82.9 fL Normal 81.0-100.0 [facility] ([place]) Comment on above: Performed By: #### A FINN, CBC, ADIFF, BMP, GFR #### [place] [address] Platelet 176 10 3/mcL Normal 150-450 [facility] ([place]) Comment on above: Performed By: #### A FINN, CBC, ADIFF, BMP, GFR #### [place] [address] Platelet mean volume (Bld) [Entitic vol] 8.5 fL Normal 6.4-10.5 [facility] ([place]) Comment on above: Performed By: #### A FINN, CBC, ADIFF, BMP, GFR #### [place] [address] RBC 4.86 10 6/mcL Normal 4.50-6.00 [facility] ([place]) Comment on above: Performed By: #### A FINN, CBC, ADIFF, BMP, GFR #### [place] [address] WBC 9.5 10 3/mcL Normal 4.5-10.8 [facility] ([place]) Comment on above: Performed By: #### A FINN, CBC, ADIFF, BMP, GFR #### [place] [address] LABORATORYOrdered By: Shruti Gibson on 11-19-2023 Blood Glucose Testing Reason Routine (11/19/23 4:34 PM) [facility] Glucose [Mass/Vol] 229 mg/dL High 70 - 110 mg/dL [facility] LABORATORYOrdered By: Ramos Stock on 11-19-2023 Blood Glucose Testing Reason Routine (11/19/23 11:46 AM) [facility] Glucose [Mass/Vol] 204 mg/dL High 70 - 110 mg/dL [facility] Blood Glucose Testing Reason Routine (11/19/23 7:45 AM) [facility] Glucose [Mass/Vol] 139 mg/dL High 70 - 110 mg/dL [facility] LABORATORYOrdered By: Renthackr SYSTEM on 11-19-2023 Basophils (Bld) [#/Vol] 0.0 103/mcL Normal 0.0 - 0.3 10^3/mcL Workflow SS Basophils/100 WBC (Bld) 0.4 % Normal 0.0 - 2.5 % Workflow SS Calcium [Mass/Vol] 9.3 mg/dL Normal 8.7 - 10. 4 mg/dL ADM SS Chloride [Moles/Vol] 109 mmol/L Normal 98 - 110 mEq/L ADM SS CO2 [Moles/Vol] 28 mmol/L Normal 22 - 32 mEq/L ADM SS Creatinine [Mass/Vol] 0.69 mg/dL Normal 0.60 - 1.40 mg/dL ADM SS Electrolyte Balance 5.0 mEq/L Normal 4.0 - 15 .0 mEq/L ADM SS Eosinophils (Bld) [#/Vol] 0.2 103/mcL Normal 0.0 - 0.7 10^3/mcL Workflow SS Eosinophils/100 WBC (Bld) 2.6 % Normal 0.0 - 6.0 % Workflow SS Erythrocyte distribution width (RBC) [Ratio] 14.0 % Normal 11.5 - 15.5 % Workflow SS GFR/1.73 sq M.predicted among blacks MDRD (S/P/Bld) [Vol rate/Area] ml/min/1.73sqm Invalid Interpretation Code Chemistry S Comment on above: Interpretive Data: GFR Population mean for , Non- Americans Ages 20-29 = 116 mL/min/1.73 sq.m. Ages 30-39 = 107 mL/min/1.73 sq.m. Ages 40-49 = 99 mL/min/1.73 sq.m. Ages 50-59 = 93 mL/min/1.73 sq.m. Ages 60-69 = 85 mL/min/1.73 sq.m. Ages 70+ = 75 mL/min/1.73 sq.m. Chronic Kidney Disease: Less than 60 mL/min/1.73 square meters End Stage Renal Disease: Less than 15 mL/min/1.73 square meters GFR/1.73 sq M.predicted among non-blacks MDRD (S/P/Bld) [Vol rate/Area] ml/min/1.73sqm Invalid Interpretation Code Chemistry S Comment on above: Interpretive Data: GFR Population mean for , Non- Americans Ages 20-29 = 116 mL/min/1.73 sq.m. Ages 30-39 = 107 mL/min/1.73 sq.m. Ages 40-49 = 99 mL/min/1.73 sq.m. Ages 50-59 = 93 mL/min/1.73 sq.m. Ages 60-69 = 85 mL/min/1.73 sq.m. Ages 70+ = 75 mL/min/1.73 sq.m. Chronic Kidney Disease: Less than 60 mL/min/1.73 square meters End Stage Renal Disease: Less than 15 mL/min/1.73 square meters Glucose [Mass/Vol] 122 mg/dL High 70 - 110 mg/dL ADM SS Hematocrit (Bld) [Volume fraction] 40.2 % Normal 40.0 - 52.0 % Workflow SS Hemoglobin (Bld) [Mass/Vol] 13.8 G/dL Normal 13.0 - 17.5 G/dL Workflow SS Lymphocytes (Bld) [#/Vol] 2.2 103/mcL Normal 0.9 - 4.3 10^3/mcL Workflow SS Lymphocytes/100 WBC (Bld) 23.1 % Normal 20.0 - 40.0 % Workflow SS Magnesium [Mass/Vol] 1.8 mg/dL Normal 1.6 - 2 .4 mg/dL ADM SS MCH (RBC) [Entitic mass] 28.5 pg Normal 27.0 - 33.0 pg AH Workflow SS MCHC 34.4 G/dL Normal 32.0 - 36.0 G/dL AH Workflow SS MCV (RBC) [Entitic vol] 82.9 fL Normal 81.0 - 100.0 fL AH Workflow SS Monocytes (Bld) [#/Vol] 0.6 103/mcL Normal 0.1 - 1.4 10^3/mcL AH Workflow SS Monocytes/100 WBC (Bld) 6.2 % Normal 2.0 - 13.0 % AH Workflow SS Neutrophils (Bld) [#/Vol] 6.4 103/mcL Normal 2.3 - 8.1 10^3/mcL AH Workflow SS Neutrophils/100 WBC (Bld) 67.7 % Normal 50.0 - 75.0 % AH Workflow SS Platelet mean volume (Bld) [Entitic vol] 8.5 fL Normal 6.4 - 10.5 fL AH Workflow SS Platelets (Bld) [#/Vol] 176 103/mcL Normal 150 - 450 10^3/mcL AH Workflow SS Potassium [Moles/Vol] 4.1 mmol/L Normal 3.5 - 5.0 mEq/L AH ADM SS RBC (Bld) [#/Vol] 4.86 106/mcL Normal 4.50 - 6.0 0 10^6/mcL AH Workflow SS Sodium [Moles/Vol] 142 mmol/L Normal 136 - 145 mEq/L AH ADM SS Urea nitrogen [Mass/Vol] 15.0 mg/dL Normal 8.0 - 22.0 mg/dL AH ADM SS Urea nitrogen/Creatinine [Mass ratio] 21.7 ratio Normal 10.0 - 22.0 ratio AH ADM SS WBC (Bld) [#/Vol] 9.5 103/mcL Normal 4.5 - 10.8 10^3/mcL Workflow SS MGon 11-19-2023 Magnesium [Mass/Vol] 1.8 mg/dL Normal 1.6-2.4 [facility] ([place]) Comment on above: Performed By: #### A FINN, CBC, ADIFF, BMP, GFR #### [place] [address] .Auto Diffon 11-18-2023 Basophil, Absolute 0.0 10 3/mcL Normal 0.0-0.3 [facility] ([place]) Comment on above: Performed By: #### A FINN, CBC, ADIFF, BMP, GFR #### [address] [address] Basophils/100 WBC (Bld) 0.3 % Normal 0.0-2.5 [facility] ([place]) Comment on above: Performed By: #### A FINN, CBC, ADIFF, BMP, GFR #### [address] [address] Eosinophil, Absolute 0.2 10 3/mcL Normal 0.0-0.7 [facility] ([place]) Comment on above: Performed By: #### A FINN, CBC, ADIFF, BMP, GFR #### [address] [address] Eosinophils/100 WBC (Bld) 2.5 % Normal 0.0-6.0 [facility] ([place]) Comment on above: Performed By: #### A FINN, CBC, ADIFF, BMP, GFR #### [address] [address] Lymphocyte, Absolute 2.1 10 3/mcL Normal 0.9-4.3 [facility] ([place]) Comment on above: Performed By: #### A FINN, CBC, ADIFF, BMP, GFR #### [address] [address] Lymphocytes/100 WBC (Bld) 22.6 % Normal 20.0-40.0 [facility] ([place]) Comment on above: Performed By: #### A FINN, CBC, ADIFF, BMP, GFR #### [address] [address] Monocyte, Absolute 0.6 10 3/mcL Normal 0.1-1.4 [facility] ([place]) Comment on above: Performed By: #### A FINN, CBC, ADIFF, BMP, GFR #### [address] [address] Monocytes/100 WBC (Bld) 6.6 % Normal 2.0-13.0 [facility] ([place]) Comment on above: Performed By: #### A FINN, CBC, ADIFF, BMP, GFR #### [address] [address] Neutrophils/100 WBC (Bld) 68.0 % Normal 50.0-75.0 [facility] ([place]) Comment on above: Performed By: #### A FINN, CBC, ADIFF, BMP, GFR #### [address] [address] .GFRon 11-18-2023 GFR >60 Normal [facility] ([place]) Comment on above: Result Comment: GFR Population mean for , Non- Americans Ages 20-29 = 116 mL/min/1.73 sq.m. Ages 30-39 = 107 mL/min/1.73 sq.m. Ages 40-49 = 99 mL/min/1.73 sq.m. Ages 50-59 = 93 mL/min/1.73 sq.m. Ages 60-69 = 85 mL/min/1.73 sq.m. Ages 70+ = 75 mL/min/1.73 sq.m. Chronic Kidney Disease: Less than 60 mL/min/1.73 square meters End Stage Renal Disease: Less than 15 mL/min/1.73 square meters Performed By: #### U AMIC, UA #### [address] [address] GFR Non- >60 Normal [facility] ([place]) Comment on above: Result Comment: GFR Population mean for , Non- Americans Ages 20-29 = 116 mL/min/1.73 sq.m. Ages 30-39 = 107 mL/min/1.73 sq.m. Ages 40-49 = 99 mL/min/1.73 sq.m. Ages 50-59 = 93 mL/min/1.73 sq.m. Ages 60-69 = 85 mL/min/1.73 sq.m. Ages 70+ = 75 mL/min/1.73 sq.m. Chronic Kidney Disease: Less than 60 mL/min/1.73 square meters End Stage Renal Disease: Less than 15 mL/min/1.73 square meters Performed By: #### U AMIC, UA #### [address] [address] .NEUABSon 11-18-2023 Neutrophil, Absolute 6.3 10 3/mcL Normal 2.3-8.1 [facility] ([place]) Comment on above: Performed By: #### A FINN, CBC, ADIFF, BMP, GFR #### [address] [address] BMPon 11-18-2023 BUN/Creatinine Ratio 19.7 ratio Normal 10.0-22.0 [facility] ([place]) Comment on above: Performed By: #### U AMIC, UA #### [address] [address] Calcium [Mass/Vol] 9.5 mg/dL Normal 8.7-10.4 [facility] ([place]) Comment on above: Performed By: #### U AMIC, UA #### [address] [address] Chloride [Moles/Vol] 109 mmol/L Normal 98-110 [facility] ([place]) Comment on above: Performed By: #### U AMIC, UA #### [address] [address] CO2 [Moles/Vol] 27 mmol/L Normal 22-32 [facility] ([place]) Comment on above: Performed By: #### U AMIC, UA #### [address] [address] Creatinine [Mass/Vol] 0.71 mg/dL Normal 0.60-1.40 [facility] ([place]) Comment on above: Performed By: #### U AMIC, UA #### [address] [address] Electrolyte Balance 5.0 mEq/L Normal 4.0-15.0 [facility] ([place]) Comment on above: Performed By: #### U AMIC, UA #### [address] [address] Glucose [Mass/Vol] 122 mg/dL High 70-110 [facility] ([place]) Comment on above: Performed By: #### U AMIC, UA #### [address] [address] Potassium [Moles/Vol] 4.2 mmol/L Normal 3.5-5.0 [facility] ([place]) Comment on above: Performed By: #### U AMIC, UA #### [address] [address] Sodium [Moles/Vol] 141 mmol/L Normal 136-145 [facility] ([place]) Comment on above: Performed By: #### U AMIC, UA #### [address] [address] Urea nitrogen [Mass/Vol] 14.0 mg/dL Normal 8.0-22.0 [facility] ([place]) Comment on above: Performed By: #### U AMIC, UA #### [address] [address] CBCon 11-18-2023 Erythrocyte distribution width (RBC) [Ratio] 14.2 % Normal 11.5-15.5 [facility] ([place]) Comment on above: Performed By: #### A FINN, CBC, ADIFF, BMP, GFR #### [address] [address] Hematocrit (Bld) [Volume fraction] 41.8 % Normal 40.0-52.0 [facility] ([place]) Comment on above: Performed By: #### A FINN, CBC, ADIFF, BMP, GFR #### [address] [address] Hgb 14.3 G/dL Normal 13.0-17.5 [facility] ([place]) Comment on above: Performed By: #### A FINN, CBC, ADIFF, BMP, GFR #### [address] [address] MCH (RBC) [Entitic mass] 28.0 pg Normal 27.0-33.0 [facility] ([place]) Comment on above: Performed By: #### A FINN, CBC, ADIFF, BMP, GFR #### [address] [address] MCHC 34.1 G/dL Normal 32.0-36.0 [facility] ([place]) Comment on above: Performed By: #### A FINN, CBC, ADIFF, BMP, GFR #### [place] [address] MCV (RBC) [Entitic vol] 82.0 fL Normal 81.0-100.0 [facility] ([place]) Comment on above: Performed By: #### A FINN, CBC, ADIFF, BMP, GFR #### [place] [address] Platelet 176 10 3/mcL Normal 150-450 [facility] ([place]) Comment on above: Performed By: #### A FINN, CBC, ADIFF, BMP, GFR #### [place] [address] Platelet mean volume (Bld) [Entitic vol] 8.1 fL Normal 6.4-10.5 [facility] ([place]) Comment on above: Performed By: #### A FINN, CBC, ADIFF, BMP, GFR #### [place] [address] RBC 5.10 10 6/mcL Normal 4.50-6.00 [facility] ([place]) Comment on above: Performed By: #### A FINN, CBC, ADIFF, BMP, GFR #### [place] [address] WBC 9.3 10 3/mcL Normal 4.5-10.8 [facility] ([place]) Comment on above: Performed By: #### A FINN, CBC, ADIFF, BMP, GFR #### [place] [address] LABORATORYOrdered By: SYSTEM SYSTEM on 11-18-2023 Basophils (Bld) [#/Vol] 0.0 103/mcL Normal 0.0 - 0.3 10^3/mcL AH Workflow SS Basophils/100 WBC (Bld) 0.3 % Normal 0.0 - 2.5 % AH Workflow SS Calcium [Mass/Vol] 9.5 mg/dL Normal 8.7 - 10. 4 mg/dL AH ADM SS Chloride [Moles/Vol] 109 mmol/L Normal 98 - 110 mEq/L AH ADM SS CO2 [Moles/Vol] 27 mmol/L Normal 22 - 32 mEq/L ADM SS Creatinine [Mass/Vol] 0.71 mg/dL Normal 0.60 - 1.40 mg/dL ADM SS Electrolyte Balance 5.0 mEq/L Normal 4.0 - 15 .0 mEq/L ADM SS Eosinophils (Bld) [#/Vol] 0.2 103/mcL Normal 0.0 - 0.7 10^3/mcL Workflow SS Eosinophils/100 WBC (Bld) 2.5 % Normal 0.0 - 6.0 % Workflow SS Erythrocyte distribution width (RBC) [Ratio] 14.2 % Normal 11.5 - 15.5 % Workflow SS GFR/1.73 sq M.predicted among blacks MDRD (S/P/Bld) [Vol rate/Area] ml/min/1.73sqm Invalid Interpretation Code [employer] Chemistry S Comment on above: Interpretive Data: GFR Population mean for , Non- Americans Ages 20-29 = 116 mL/min/1.73 sq.m. Ages 30-39 = 107 mL/min/1.73 sq.m. Ages 40-49 = 99 mL/min/1.73 sq.m. Ages 50-59 = 93 mL/min/1.73 sq.m. Ages 60-69 = 85 mL/min/1.73 sq.m. Ages 70+ = 75 mL/min/1.73 sq.m. Chronic Kidney Disease: Less than 60 mL/min/1.73 square meters End Stage Renal Disease: Less than 15 mL/min/1.73 square meters GFR/1.73 sq M.predicted among non-blacks MDRD (S/P/Bld) [Vol rate/Area] ml/min/1.73sqm Invalid Interpretation Code [employer] Chemistry S Comment on above: Interpretive Data: GFR Population mean for , Non- Americans Ages 20-29 = 116 mL/min/1.73 sq.m. Ages 30-39 = 107 mL/min/1.73 sq.m. Ages 40-49 = 99 mL/min/1.73 sq.m. Ages 50-59 = 93 mL/min/1.73 sq.m. Ages 60-69 = 85 mL/min/1.73 sq.m. Ages 70+ = 75 mL/min/1.73 sq.m. Chronic Kidney Disease: Less than 60 mL/min/1.73 square meters End Stage Renal Disease: Less than 15 mL/min/1.73 square meters Glucose [Mass/Vol] 122 mg/dL High 70 - 110 mg/dL ADM SS Hematocrit (Bld) [Volume fraction] 41.8 % Normal 40.0 - 52.0 % AH Workflow SS Hemoglobin (Bld) [Mass/Vol] 14.3 G/dL Normal 13.0 - 17.5 G/dL AH Workflow SS Lymphocytes (Bld) [#/Vol] 2.1 103/mcL Normal 0.9 - 4.3 10^3/mcL AH Workflow SS Lymphocytes/100 WBC (Bld) 22.6 % Normal 20.0 - 40.0 % AH Workflow SS Magnesium [Mass/Vol] 1.8 mg/dL Normal 1.6 - 2 .4 mg/dL ADM SS MCH (RBC) [Entitic mass] 28.0 pg Normal 27.0 - 33.0 pg AH Workflow SS MCHC 34.1 G/dL Normal 32.0 - 36.0 G/dL Workflow SS MCV (RBC) [Entitic vol] 82.0 fL Normal 81.0 - 100.0 fL Workflow SS Monocytes (Bld) [#/Vol] 0.6 103/mcL Normal 0.1 - 1.4 10^3/mcL AH Workflow SS Monocytes/100 WBC (Bld) 6.6 % Normal 2.0 - 13.0 % AH Workflow SS Neutrophils (Bld) [#/Vol] 6.3 103/mcL Normal 2.3 - 8.1 10^3/mcL AH Workflow SS Neutrophils/100 WBC (Bld) 68.0 % Normal 50.0 - 75.0 % AH Workflow SS Platelet mean volume (Bld) [Entitic vol] 8.1 fL Normal 6.4 - 10.5 fL AH Workflow SS Platelets (Bld) [#/Vol] 176 103/mcL Normal 150 - 450 10^3/mcL AH Workflow SS Potassium [Moles/Vol] 4.2 mmol/L Normal 3.5 - 5.0 mEq/L ADM SS RBC (Bld) [#/Vol] 5.10 106/mcL Normal 4.50 - 6.0 0 10^6/mcL AH Workflow SS Sodium [Moles/Vol] 141 mmol/L Normal 136 - 145 mEq/L AH ADM SS Urea nitrogen [Mass/Vol] 14.0 mg/dL Normal 8.0 - 22.0 mg/dL AH ADM SS Urea nitrogen/Creatinine [Mass ratio] 19.7 ratio Normal 10.0 - 22.0 ratio AH ADM SS WBC (Bld) [#/Vol] 9.3 103/mcL Normal 4.5 - 10.8 10^3/mcL AH Workflow SS MGon 11-18-2023 Magnesium [Mass/Vol] 1.8 mg/dL Normal 1.6-2.4 [facility] ([place]) Comment on above: Performed By: #### U AMIC, UA #### [address] [address] .Auto Diffon 11-17-2023 Basophil, Absolute 0.0 10 3/mcL Normal 0.0-0.3 [facility] ([place]) Comment on above: Performed By: #### U AMIC, UA #### [address] [address] Basophils/100 WBC (Bld) 0.6 % Normal 0.0-2.5 [facility] ([place]) Comment on above: Performed By: #### U AMIC, UA #### [address] [address] Eosinophil, Absolute 0.2 10 3/mcL Normal 0.0-0.7 [facility] ([place]) Comment on above: Performed By: #### U AMIC, UA #### [address] [address] Eosinophils/100 WBC (Bld) 2.4 % Normal 0.0-6.0 [facility] ([place]) Comment on above: Performed By: #### U AMIC, UA #### [address] [address] Lymphocyte, Absolute 2.4 10 3/mcL Normal 0.9-4.3 [facility] ([place]) Comment on above: Performed By: #### U AMIC, UA #### [address] [address] Lymphocytes/100 WBC (Bld) 31.2 % Normal 20.0-40.0 [facility] ([place]) Comment on above: Performed By: #### U AMIC, UA #### [address] [address] Monocyte, Absolute 0.5 10 3/mcL Normal 0.1-1.4 [facility] ([place]) Comment on above: Performed By: #### U AMIC, UA #### [address] [address] Monocytes/100 WBC (Bld) 7.0 % Normal 2.0-13.0 [facility] ([place]) Comment on above: Performed By: #### U AMIC, UA #### [address] [address] Neutrophils/100 WBC (Bld) 58.8 % Normal 50.0-75.0 [facility] ([place]) Comment on above: Performed By: #### U AMIC, UA #### [address] [address] .GFRon 11-17-2023 GFR >60 Normal [facility] ([place]) Comment on above: Result Comment: GFR Population mean for , Non- Americans Ages 20-29 = 116 mL/min/1.73 sq.m. Ages 30-39 = 107 mL/min/1.73 sq.m. Ages 40-49 = 99 mL/min/1.73 sq.m. Ages 50-59 = 93 mL/min/1.73 sq.m. Ages 60-69 = 85 mL/min/1.73 sq.m. Ages 70+ = 75 mL/min/1.73 sq.m. Chronic Kidney Disease: Less than 60 mL/min/1.73 square meters End Stage Renal Disease: Less than 15 mL/min/1.73 square meters Performed By: #### U AMIC, UA #### [address] [address] GFR Non- >60 Normal [facility] ([place]) Comment on above: Result Comment: GFR Population mean for , Non- Americans Ages 20-29 = 116 mL/min/1.73 sq.m. Ages 30-39 = 107 mL/min/1.73 sq.m. Ages 40-49 = 99 mL/min/1.73 sq.m. Ages 50-59 = 93 mL/min/1.73 sq.m. Ages 60-69 = 85 mL/min/1.73 sq.m. Ages 70+ = 75 mL/min/1.73 sq.m. Chronic Kidney Disease: Less than 60 mL/min/1.73 square meters End Stage Renal Disease: Less than 15 mL/min/1.73 square meters Performed By: #### U AMIC, UA #### [address] [address] .NEUABSon 11-17-2023 Neutrophil, Absolute 4.5 10 3/mcL Normal 2.3-8.1 [facility] ([place]) Comment on above: Performed By: #### U AMIC, UA #### [address] [address] BMPon 11-17-2023 BUN/Creatinine Ratio 18.3 ratio Normal 10.0-22.0 [facility] ([place]) Comment on above: Performed By: #### U AMIC, UA #### [address] [address] Calcium [Mass/Vol] 8.8 mg/dL Normal 8.7-10.4 [facility] ([place]) Comment on above: Performed By: #### U AMIC, UA #### [address] [address] Chloride [Moles/Vol] 110 mmol/L Normal 98-110 [facility] ([place]) Comment on above: Performed By: #### U AMIC, UA #### [address] [address] CO2 [Moles/Vol] 29 mmol/L Normal 22-32 [facility] ([place]) Comment on above: Performed By: #### U AMIC, UA #### [address] [address] Creatinine [Mass/Vol] 0.71 mg/dL Normal 0.60-1.40 [facility] ([place]) Comment on above: Performed By: #### U AMIC, UA #### [facility] [address] [place] [address] Electrolyte Balance 2.0 mEq/L Low 4.0-15.0 [facility] ([place]) Comment on above: Performed By: #### U AMIC, UA #### [facility] [address] [place] [address] Glucose [Mass/Vol] 122 mg/dL High 70-110 [facility] ([place]) Comment on above: Performed By: #### U AMIC, UA #### [facility] [address] [place] [address] Potassium [Moles/Vol] 4.2 mmol/L Normal 3.5-5.0 [facility] ([place]) Comment on above: Performed By: #### U AMIC, UA #### [address] [address] Sodium [Moles/Vol] 141 mmol/L Normal 136-145 [facility] ([place]) Comment on above: Performed By: #### U AMIC, UA #### [address] [address] Urea nitrogen [Mass/Vol] 13.0 mg/dL Normal 8.0-22.0 [facility] ([place]) Comment on above: Performed By: #### U AMIC, UA #### [address] [address] CARDAon 11-17-2023 Cardiolipin IgA <9 Normal 0-11 [facility] ([place]) Comment on above: Result Comment: Nega tive: <12 Indeterminate: 12 - 20 Low-Med Positive: >20 - 80 High Positive: >80 Performed At: [facility] [address] [id number] Dominik Marcum PhD Ph:[phone] Performed By: #### A FINN, CBC, ADIFF, BMP, GFR #### [address] [address] CARDIGon 11-17-2023 Cardiolipin IgG 11 GPL U/mL Normal 0-14 [facility] ([place]) Comment on above: Result Comment: Nega tive: <15 Indeterminate: 15 - 20 Low-Med Positive: >20 - 80 High Positive: >80 Performed At: [place] [id number] [place], [place] [id number] Dominik Marcum PhD Ph:[phone] Performed By: #### A FINN, CBC, ADIFF, BMP, GFR #### [place] [address] CARDIMon 11-17-2023 Cardiolipin IgM <9 Normal 0-12 [facility] ([place]) Comment on above: Result Comment: Nega tive: <13 Indeterminate: 13 - 20 Low-Med Positive: >20 - 80 High Positive: >80 Performed At: [place] [id number] [place], [place] [id number] Dominik Marcum PhD Ph:[phone] Performed By: #### A FINN, CBC, ADIFF, BMP, GFR #### [address] 11[address]17-[address] Erythrocyte distribution width (RBC) [Ratio] 14.0 % Normal 11.5-15.5 [facility] ([place]) Comment on above: Performed By: #### U AMIC, UA #### [place] [address] Hematocrit (Bld) [Volume fraction] 38.8 % Low 40.0-52.0 [facility] ([place]) Comment on above: Performed By: #### U AMIC, UA #### [place] [address] Hgb 13.4 G/dL Normal 13.0-17.5 [facility] ([place]) Comment on above: Performed By: #### U AMIC, UA #### [place] [address] MCH (RBC) [Entitic mass] 28.3 pg Normal 27.0-33.0 [facility] ([place]) Comment on above: Performed By: #### U AMIC, UA #### [place] [id number] MCHC 34.5 G/dL Normal 32.0-36.0 [facility] ([place]) Comment on above: Performed By: #### U AMIC, UA #### [place] [address] MCV (RBC) [Entitic vol] 81.9 fL Normal 81.0-100.0 [facility] ([place]) Comment on above: Performed By: #### U AMIC, UA #### [place] [address] Platelet 147 10 3/mcL Low 150-450 [facility] ([place]) Comment on above: Performed By: #### U AMIC, UA #### [place] [address] Platelet mean volume (Bld) [Entitic vol] 8.2 fL Normal 6.4-10.5 [facility] ([place]) Comment on above: Performed By: #### U AMIC, UA #### [place] [address] RBC 4.74 10 6/mcL Normal 4.50-6.00 [facility] ([place]) Comment on above: Performed By: #### U AMIC, UA #### [place] [address] WBC 7.7 10 3/mcL Normal 4.5-10.8 [facility] ([place]) Comment on above: Performed By: #### U AMIC, UA #### [place] [address] CIRANon 11-17-2023 Dil Maikol Viper Venom 50.8 seconds High 30.0-42.0 [facility] ([place]) Comment on above: Result Comment: DRVV T Confirmation Test Performed: POSITIVE Performed By: #### A FINN, CBC, ADIFF, BMP, GFR #### [place] [address] [place] Interpretation See Below Normal [facility] ([place]) Comment on above: Result Comment: Lupu s Anticoagulant DETECTED by DRVVT method. Performed By: #### A FINN, CBC, ADIFF, BMP, GFR #### [place] [address] Platelet neutraliz. Not Done Normal [facility] ([place]) Comment on above: Performed By: #### A FINN, CBC, ADIFF, BMP, GFR #### [address] [address] LABORATORYOrdered By: SYSTEM SYSTEM on 11-17-2023 Basophils (Bld) [#/Vol] 0.0 103/mcL Normal 0.0 - 0.3 10^3/mcL Workflow SS Basophils/100 WBC (Bld) 0.6 % Normal 0.0 - 2.5 % AH Workflow SS Calcium [Mass/Vol] 8.8 mg/dL Normal 8.7 - 10. 4 mg/dL ADM SS Chloride [Moles/Vol] 110 mmol/L Normal 98 - 110 mEq/L ADM SS CO2 [Moles/Vol] 29 mmol/L Normal 22 - 32 mEq/L ADM SS Creatinine [Mass/Vol] 0.71 mg/dL Normal 0.60 - 1.40 mg/dL ADM SS Electrolyte Balance 2.0 mEq/L Low 4.0 - 15 .0 mEq/L ADM SS Eosinophils (Bld) [#/Vol] 0.2 103/mcL Normal 0.0 - 0.7 10^3/mcL Workflow SS Eosinophils/100 WBC (Bld) 2.4 % Normal 0.0 - 6.0 % AH Workflow SS Erythrocyte distribution width (RBC) [Ratio] 14.0 % Normal 11.5 - 15.5 % AH Workflow SS GFR/1.73 sq M.predicted among blacks MDRD (S/P/Bld) [Vol rate/Area] ml/min/1.73sqm Invalid Interpretation Code Chemistry S Comment on above: Interpretive Data: GFR Population mean for , Non- Americans Ages 20-29 = 116 mL/min/1.73 sq.m. Ages 30-39 = 107 mL/min/1.73 sq.m. Ages 40-49 = 99 mL/min/1.73 sq.m. Ages 50-59 = 93 mL/min/1.73 sq.m. Ages 60-69 = 85 mL/min/1.73 sq.m. Ages 70+ = 75 mL/min/1.73 sq.m. Chronic Kidney Disease: Less than 60 mL/min/1.73 square meters End Stage Renal Disease: Less than 15 mL/min/1.73 square meters GFR/1.73 sq M.predicted among non-blacks MDRD (S/P/Bld) [Vol rate/Area] ml/min/1.73sqm Invalid Interpretation Code Chemistry S Comment on above: Interpretive Data: GFR Population mean for , Non- Americans Ages 20-29 = 116 mL/min/1.73 sq.m. Ages 30-39 = 107 mL/min/1.73 sq.m. Ages 40-49 = 99 mL/min/1.73 sq.m. Ages 50-59 = 93 mL/min/1.73 sq.m. Ages 60-69 = 85 mL/min/1.73 sq.m. Ages 70+ = 75 mL/min/1.73 sq.m. Chronic Kidney Disease: Less than 60 mL/min/1.73 square meters End Stage Renal Disease: Less than 15 mL/min/1.73 square meters Glucose [Mass/Vol] 122 mg/dL High 70 - 110 mg/dL ADM SS Hematocrit (Bld) [Volume fraction] 38.8 % Low 40.0 - 52.0 % AH Workflow SS Hemoglobin (Bld) [Mass/Vol] 13.4 G/dL Normal 13.0 - 17.5 G/dL AH Workflow SS Lymphocytes (Bld) [#/Vol] 2.4 103/mcL Normal 0.9 - 4.3 10^3/mcL AH Workflow SS Lymphocytes/100 WBC (Bld) 31.2 % Normal 20.0 - 40.0 % AH Workflow SS MCH (RBC) [Entitic mass] 28.3 pg Normal 27.0 - 33.0 pg AH Workflow SS MCHC 34.5 G/dL Normal 32.0 - 36.0 G/dL AH Workflow SS MCV (RBC) [Entitic vol] 81.9 fL Normal 81.0 - 100.0 fL AH Workflow SS Monocytes (Bld) [#/Vol] 0.5 103/mcL Normal 0.1 - 1.4 10^3/mcL AH Workflow SS Monocytes/100 WBC (Bld) 7.0 % Normal 2.0 - 13.0 % AH Workflow SS Neutrophils (Bld) [#/Vol] 4.5 103/mcL Normal 2.3 - 8.1 10^3/mcL AH Workflow SS Neutrophils/100 WBC (Bld) 58.8 % Normal 50.0 - 75.0 % AH Workflow SS Platelet mean volume (Bld) [Entitic vol] 8.2 fL Normal 6.4 - 10.5 fL AH Workflow SS Platelets (Bld) [#/Vol] 147 103/mcL Low 150 - 450 10^3/mcL AH Workflow SS Potassium [Moles/Vol] 4.2 mmol/L Normal 3.5 - 5.0 mEq/L AH ADM SS RBC (Bld) [#/Vol] 4.74 106/mcL Normal 4.50 - 6.0 0 10^6/mcL AH Workflow SS Sodium [Moles/Vol] 141 mmol/L Normal 136 - 145 mEq/L AH ADM SS Urea nitrogen [Mass/Vol] 13.0 mg/dL Normal 8.0 - 22.0 mg/dL AH ADM SS Urea nitrogen/Creatinine [Mass ratio] 18.3 ratio Normal 10.0 - 22.0 ratio AH ADM SS WBC (Bld) [#/Vol] 7.7 103/mcL Normal 4.5 - 10.8 10^3/mcL Workflow SS XR SHOULDER MINIMUM 2 VIEWS RIGHTon 11-17-2023 XR SHOULDER MINIMUM 2 VIEWS RIGHT ORIGINAL EXAMINATION: 3 XRAY VIEWS OF THE RIGHT SHOULDER11/17/2023 2:02 pm COMPARISON: None. HISTORY: ORDERING SYSTEM PROVIDED HISTORY: Reason for Exam: pain, FINDINGS: No fracture or dislocation is identified. There are no abnormal periarticular calcifications. Mild degenerative changes seen of the right acromioclavicular joint. The included thoracic structures are normal. IMPRESSION: No acute fracture or dislocation. Mild degenerative changes Interpreted by: Chuckie Samuels MD Preliminary Report By: Chuckie Samuels MD Electronically signed By Chuckie Samuels MD Dictated Date: 11/17/2023 2:10:26 PM Prelim Date: 11/17/2023 2:11:35 PM Sign Date: 11/17/2023 2:11:35 PM Ordering Provider: BOBBI Oliveira [facility] ([place]) APCVon 11-16-2023 APC Factor V Resistance 3.1 ratio Normal [facility]) Comment on above: Result Comment: This APCV result demonstrates no Resistance to Activated Protein C. APC Factor V Resistance Reference Range: <= 2.3 Positive > 2.3 Negative Performed By: #### A FINN, CBC, ADIFF, BMP, GFR #### [place] [id number] [place] [address] AT3on 11-16-2023 Anti-Thrombin III 115 % Normal 84-126 [facility] ([place]) Comment on above: Performed By: #### A FINN, CBC, ADIFF, BMP, GFR #### [address] [address] [address] ANGIOGRAPHY HEAD W/ CONTR Gavin 11-16-2023 CT ANGIOGRAPHY HEAD W/ CONTRAST ORIGINAL EXAMINATION: CT Angiogram of the head with intravenous contrast TECHNIQUE: CT angiogram of the head was obtained. Sagittal and coronal reformations and maximum intensity projection reconstructions were provided. Images were obtained before and after the uneventful administration of 110 mL Isovue 370. 3D reformatted MIP images were provided One or more of the following dose reduction techniques were used: automated exposure control, adjustment of the mA and/or kV according to patient size, or use of iterative reconstruction technique. DICOM images are available. COMPARISON: MRI brain 11/14/20[address] same day [address]contrast CT head HISTORY: ORDERING SYSTEM PROVIDED HISTORY: Reason for Exam: History of stroke. New right sided weakness and facial droop R side weakness FINDINGS: Cerebral angiogram Aneurysm: No aneurysm identified. 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 Ophthalmic arteries:The bilateral proximal ophthalmic arteries are patent. Anterior cerebral arteries:No flow-limiting stenosis Middle cerebral arteries:No significant stenosis or occlusion of the left middle cerebral artery. The proximal M1 right middle cerebral artery is occluded (axial image 102 series 5). Flow within the right M2-M4 branches is due to collaterals. The numbers of branches and density of contrast within the right M2-M4 relative to the contralateral side is diminished. Posterior cerebral arteries: origin of the left posterior cerebral artery. Atherosclerotic disease throughout the left posterior cerebral artery is present. Moderate stenosis of the P1 right posterior cerebral artery. Anterior communicating artery:Present. Posterior communicating arteries:Present on the left. Hypoplastic or aplastic on the right. Posterior circulation: Basilar artery:Iauy-vm-eywae ate focal stenosis within the proximal basilar artery secondary to soft plaque. V3/V4 vertebral arteries:No significant flow-limiting stenosis. Dural venous sinuses:Patent. IMPRESSION: 1. 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 2. Mild to moderate focal stenosis within the proximal basilar artery. 3. Moderate left ICA stenosis. 4. 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 5. Moderate stenosis of the proximal P1 right posterior cerebral artery. Communication was initiated for the radiology call center by this radiologist through PACS at 11:37 a.m. on 11/16/2023with instructions to provide the results of this examination to a licensed caregiver. Interpreted by: Renea Shields MD Preliminary Report By: Renea Shields MD Electronically signed By Renea Shields MD Dictated Date: 11/16/2023 11:24:22 AM Prelim Date: 11/16/2023 11:37:13 AM Sign Date: 11/16/2023 11:37:13 AM Ordering Provider: ELAYNEMAYRA GOMEZ [facility] ([place]) CT ANGIOGRAPHY NECK W/CONTRA STon 11-16-2023 CT ANGIOGRAPHY NECK W/CONTRAST ORIGINAL EXAMINATION: CTA neck: TECHNIQUE: Contiguous spiral images were obtained in the axial plane, following the administration of intravenous contrast using CT angiographic protocol. Sagittal and coronal images were reconstructed from the axial plane acquisition. Additional 3D reformatted MIP reconstructions were presented to aid in the interpretation of this study. Images were obtained from the skull base through the upper lobes. Contrast: 110 mL Isovue 370 One or more the following dose reduction techniques were used:automated exposure control, adjustment of the mA and/or kV according to patient size, or use of iterative reconstruction technique. Additional comment: None. COMPARISON: Correlated with same day CTA head HISTORY: ORDERING SYSTEM PROVIDED HISTORY: Reason for Exam: hx of stroke. new right sided weakness and facial droop Worsen R side weakness FINDINGS: Neck Angiogram Aorta: No hemodynamically significant stenosis. Patent brachiocephalic, left common carotid and left subclavian arteries. Right common carotid artery: No hemodynamically significant flow-limiting stenosis. Right internal carotid artery: No hemodynamically significant flow-limiting stenosis. Right external carotid artery: No hemodynamically significant flow-limiting stenosis. Left common carotid artery: No hemodynamically significant flow-limiting stenosis. Left internal carotid artery: No hemodynamically significant flow-limiting stenosis. Left external carotid artery: No hemodynamically significant flow-limiting stenosis. V1/V2 vertebral arteries: No hemodynamically significant flow-limiting stenosis. Vertebral artery dominance: Right. Neck Soft tissues: Normal. Bones: No acute osseous pathology. Straightening of the normal cervical lordosis. Lung apices: Clear. IMPRESSION: 1. No hemodynamically significant flow-limiting stenosis. 2. Normal CTA of the neck. The estimate of the degree of stenosis included in this report is based on the NASCET method for calculating stenosis, using the internal carotid artery distal to the stenosis as the reference point. Interpreted by: Renea Shields MD Preliminary Report By: Renea Shields MD Electronically signed By Renea Shields MD Dictated Date: 11/16/2023 11:59:48 AM Prelim Date: 11/16/2023 12:02:17 PM Sign Date: 11/16/2023 12:02:17 PM Ordering Provider: ELAYNE GOMEZ [facility] ([place]) CT HEAD OR BRAIN W/O CONTRAS Ton 11-16-2023 CT HEAD OR BRAIN W/O CONTRAST ORIGINAL EXAMINATION: CT OF THE HEAD WITHOUT CONTRAST 11/16/2023 11:09 am TECHNIQUE: CT of the head was performed without the administration of intravenous contrast. Automated exposure control, iterative reconstruction, and/or weight based adjustment of the mA/kV was utilized to reduce the radiation dose to as low as reasonably achievable. COMPARISON: 11/15/2023 HISTORY: ORDERING SYSTEM PROVIDED HISTORY: Reason for Exam: hx of stroke. new right sided weakness and facial droop worse right side weakness FINDINGS: There is no acute intracranial hemorrhage, mass effect, or abnormal extra-axial fluid collection. There is no CT evidence of acute infarct. The density in the larger dural venous sinuses is grossly normal. Early subacute left-sided lacunar infarcts in the basal ganglia and the posterior limb of the internal capsule appear unchanged. Smaller lacunar infarcts in the lentiform nucleus bilaterally are unchanged as well. No hydrocephalus. Scattered white matter hypodensities are present which are nonspecific but likely represent chronic microvascular angiopathy. Bilateral cavernous carotid artery calcifications are present. No acute bony findings. Grossly clear paranasal sinuses and mastoid air cells. IMPRESSION: No acute intracranial abnormality identified. Unchanged early subacute lacunar infarct in the left basal ganglia. Parenchymal volume loss and chronic microvascular white matter ischemic disease. I have personally reviewed the images of this examination and agree with the resident's findings and interpretation. Interpreted by: Renea Shields MD Preliminary Report By: Meng Burden Electronically signed By Renea Shields MD Dictated Date: 11/16/2023 11:10:46 AM Prelim Date: 11/16/2023 11:39:03 AM Sign Date: 11/16/2023 11:39:03 AM Ordering Provider: ELAYNE Oliveira [facility] ([place]) PROTCon 11-16-2023 Protein C 117 % Normal >=80 [facility] ([place]) Comment on above: Performed By: #### A FINN, CBC, ADIFF, BMP, GFR #### [address] [address] PRSFAon 11-16-2023 Protein S Free Antigen 73 % Low 74-146 [facility] ([place]) Comment on above: Result Comment: Prot ein S Type II deficiency (very rare) is not detected by this assay. (Pathophysiology of Haemostasis and Thrombosis 2002/04: 33:202-205 and Thrombosis Haemostasis 2000; 84:918) Performed By: #### A FINN, CBC, ADIFF, BMP, GFR #### [address] [address] .GFRon 11-15-2023 GFR >60 Normal [facility] ([place]) Comment on above: Result Comment: GFR Population mean for , Non- Americans Ages 20-29 = 116 mL/min/1.73 sq.m. Ages 30-39 = 107 mL/min/1.73 sq.m. Ages 40-49 = 99 mL/min/1.73 sq.m. Ages 50-59 = 93 mL/min/1.73 sq.m. Ages 60-69 = 85 mL/min/1.73 sq.m. Ages 70+ = 75 mL/min/1.73 sq.m. Chronic Kidney Disease: Less than 60 mL/min/1.73 square meters End Stage Renal Disease: Less than 15 mL/min/1.73 square meters Performed By: #### C MP, GFR #### [address] [address] GFR Non- >60 Normal [facility] ([place]) Comment on above: Result Comment: GFR Population mean for , Non- Americans Ages 20-29 = 116 mL/min/1.73 sq.m. Ages 30-39 = 107 mL/min/1.73 sq.m. Ages 40-49 = 99 mL/min/1.73 sq.m. Ages 50-59 = 93 mL/min/1.73 sq.m. Ages 60-69 = 85 mL/min/1.73 sq.m. Ages 70+ = 75 mL/min/1.73 sq.m. Chronic Kidney Disease: Less than 60 mL/min/1.73 square meters End Stage Renal Disease: Less than 15 mL/min/1.73 square meters Performed By: #### C MP, GFR #### [address] [address] CMPon 11-15-2023 Albumin Level 2.9 G/dL Low 3.2-4.8 [facility] ([place]) Comment on above: Performed By: #### C MP, GFR #### [address] [address] Albumin/Globulin [Mass ratio] 0.9 {ratio} Normal 0.9-1.6 [facility] ([place]) Comment on above: Performed By: #### C MP, GFR #### [address] [address] ALP [Catalytic activity/Vol] 102 U/L Normal 38-126 [facility] ([place]) Comment on above: Performed By: #### C MP, GFR #### [address] [address] ALT [Catalytic activity/Vol] 42 U/L Normal 12-55 [facility] ([place]) Comment on above: Performed By: #### C MP, GFR #### [address] [address] AST [Catalytic activity/Vol] 25 U/L Normal 8-34 [facility] ([place]) Comment on above: Performed By: #### C MP, GFR #### [address] [address] Bili Total 0.50 mg/dL Normal 0.20-1.20 [facility] ([place]) Comment on above: Result Comment: Use of this assay is not recommended for patients undergoing treatment with eltrombopag due to the potential for falsely elevated results. Performed By: #### C MP, GFR #### [place] [id number] BUN/Creatinine Ratio 32.1 ratio High 10.0-22.0 [facility] ([place]) Comment on above: Performed By: #### C MP, GFR #### [place] [id number] Calcium [Mass/Vol] 9.0 mg/dL Normal 8.7-10.4 [facility] ([place]) Comment on above: Performed By: #### C MP, GFR #### [place] [id number] Chloride [Moles/Vol] 110 mmol/L Normal 98-110 [facility] ([place]) Comment on above: Performed By: #### C MP, GFR #### [place] [id number] CO2 [Moles/Vol] 26 mmol/L Normal 22-32 [facility] ([place]) Comment on above: Performed By: #### C MP, GFR #### [place] [id number] Creatinine [Mass/Vol] 0.84 mg/dL Normal 0.60-1.40 [facility] ([place]) Comment on above: Performed By: #### C MP, GFR #### [place] [id number] Electrolyte Balance 7.0 mEq/L Normal 4.0-15.0 [facility] ([place]) Comment on above: Performed By: #### C MP, GFR #### [place] [id number] Globulin 3.2 G/dL Normal 1.5-3.8 [facility] ([place]) Comment on above: Performed By: #### C MP, GFR #### [place] [id number] Glucose [Mass/Vol] 154 mg/dL High 70-110 [facility] ([place]) Comment on above: Performed By: #### C MP, GFR #### [address] [address] Potassium [Moles/Vol] 4.1 mmol/L Normal 3.5-5.0 [facility] ([place]) Comment on above: Performed By: #### C MP, GFR #### [address] [address] Sodium [Moles/Vol] 143 mmol/L Normal 136-145 [facility] ([place]) Comment on above: Performed By: #### C MP, GFR #### [address] [address] Total Protein 6.1 G/dL Normal 5.7-8.2 [facility] ([place]) Comment on above: Result Comment: No te - New Reference Range in effect 20 Performed By: #### C MP, GFR #### [address] [address] Urea nitrogen [Mass/Vol] 27.0 mg/dL High 8.0-22.0 [facility] ([place]) Comment on above: Performed By: #### C MP, GFR #### [address] [address] [address] HEAD OR BRAIN W/O CONTRAS Ton 11-15-2023 CT HEAD OR BRAIN W/O CONTRAST ORIGINAL HISTORY: Stroke COMPARISON: MR previous day TECHNIQUE: Routine noncontrast head CT, with sagittal and coronal reconstructions. This exam was performed according to our departmental dose optimization program, and includes the following measures where applicable: automated exposure control, adjustment of the mAs and/or kVp according to patient size and/or exam, and an iterative reconstruction algorithm. FINDINGS: The ventricles and sulci are normal in size and configuration. There are no abnormal intra or extra-axial fluid collections. There is a remote left basal ganglia lacunar infarct and there is an involving lacunar infarct in the posterior limb of the left internal capsule. There is mild irregular decreased attenuation in the cerebral white matter. The calvaria and the bones of the base of the skull are intact. IMPRESSION: Volume loss, small vessel ischemic changes and evolving right lacunar infarct Interpreted by: Mikey Lyn MD Preliminary Report By: Mikey Lyn MD Electronically signed By Mikey Lyn MD Dictated Date: 11/15/2023 11:11:57 AM Prelim Date: 11/15/2023 11:13:17 AM Sign Date: 11/15/2023 11:13:17 AM Ordering Provider: ELAYNE Oliveira [facility] ([place]) LABORATORYOrdered By: SYSTEM SYSTEM on 11-15-2023 Albumin BCP dye [Mass/Vol] 2.9 G/dL Low 3.2 - 4.8 G/dL AH ADM SS Albumin/Globulin [Mass ratio] 0.9 {ratio} Normal 0.9 - 1.6 ratio AH ADM SS ALP [Catalytic activity/Vol] 102 U/L Normal 38 - 126 U/L AH ADM SS ALT No additional P-5'-P [Catalytic activity/Vol] 42 U/L Normal 12 - 55 U/L AH ADM SS AST [Catalytic activity/Vol] 25 U/L Normal 8 - 34 U/L AH ADM SS Bilirubin [Mass/Vol] 0.50 mg/dL Normal 0.20 - 1.20 mg/dL AH ADM SS Comment on above: Interpretive Data: U se of this assay is not recommended for patients undergoing treatment with eltrombopag due to the potential for falsely elevated results. Globulin 3.2 G/dL Normal 1.5 - 3.8 G/dL AH ADM SS Protein [Mass/Vol] 6.1 G/dL Normal 5.7 - 8.2 G/dL AH ADM SS Comment on above: Interpretive Data: * *Note - New Reference Range in effect 20 .Auto Diffon 11-14-2023 Basophil, Absolute 0.0 10 3/mcL Normal 0.0-0.3 [facility] ([place]) Comment on above: Performed By: #### A FINN, CBC, ADIFF, BMP, GFR #### [address] [address] Basophils/100 WBC (Bld) 0.3 % Normal 0.0-2.5 [facility] ([place]) Comment on above: Performed By: #### A FINN, CBC, ADIFF, BMP, GFR #### [address] [address] Eosinophil, Absolute 0.1 10 3/mcL Normal 0.0-0.7 [facility] ([place]) Comment on above: Performed By: #### A FINN, CBC, ADIFF, BMP, GFR #### [address] [address] Eosinophils/100 WBC (Bld) 1.5 % Normal 0.0-6.0 [facility] ([place]) Comment on above: Performed By: #### A FINN, CBC, ADIFF, BMP, GFR #### [address] [address] Lymphocyte, Absolute 1.8 10 3/mcL Normal 0.9-4.3 [facility] ([place]) Comment on above: Performed By: #### A FINN, CBC, ADIFF, BMP, GFR #### [address] [address] Lymphocytes/100 WBC (Bld) 23.7 % Normal 20.0-40.0 [facility] ([place]) Comment on above: Performed By: #### A FINN, CBC, ADIFF, BMP, GFR #### [address] [address] Monocyte, Absolute 0.6 10 3/mcL Normal 0.1-1.4 [facility] ([place]) Comment on above: Performed By: #### A FINN, CBC, ADIFF, BMP, GFR #### [address] [address] Monocytes/100 WBC (Bld) 8.3 % Normal 2.0-13.0 [facility] ([place]) Comment on above: Performed By: #### A FINN, CBC, ADIFF, BMP, GFR #### [address] [address] Neutrophils/100 WBC (Bld) 66.2 % Normal 50.0-75.0 [facility] ([place]) Comment on above: Performed By: #### A FINN, CBC, ADIFF, BMP, GFR #### [address] [address] .GFRon 11-14-2023 GFR >60 Normal [facility] ([place]) Comment on above: Result Comment: GFR Population mean for , Non- Americans Ages 20-29 = 116 mL/min/1.73 sq.m. Ages 30-39 = 107 mL/min/1.73 sq.m. Ages 40-49 = 99 mL/min/1.73 sq.m. Ages 50-59 = 93 mL/min/1.73 sq.m. Ages 60-69 = 85 mL/min/1.73 sq.m. Ages 70+ = 75 mL/min/1.73 sq.m. Chronic Kidney Disease: Less than 60 mL/min/1.73 square meters End Stage Renal Disease: Less than 15 mL/min/1.73 square meters Performed By: #### A FINN, CBC, ADIFF, BMP, GFR #### [address] [address] GFR Non- >60 Normal [facility] ([place]) Comment on above: Result Comment: GFR Population mean for , Non- Americans Ages 20-29 = 116 mL/min/1.73 sq.m. Ages 30-39 = 107 mL/min/1.73 sq.m. Ages 40-49 = 99 mL/min/1.73 sq.m. Ages 50-59 = 93 mL/min/1.73 sq.m. Ages 60-69 = 85 mL/min/1.73 sq.m. Ages 70+ = 75 mL/min/1.73 sq.m. Chronic Kidney Disease: Less than 60 mL/min/1.73 square meters End Stage Renal Disease: Less than 15 mL/min/1.73 square meters Performed By: #### A FINN, CBC, ADIFF, BMP, GFR #### [address] [address] .NEUABSon 11-14-2023 Neutrophil, Absolute 5.1 10 3/mcL Normal 2.3-8.1 [facility] ([place]) Comment on above: Performed By: #### A FINN, CBC, ADIFF, BMP, GFR #### [address] [address] BMPon 11-14-2023 BUN/Creatinine Ratio 23.3 ratio High 10.0-22.0 [facility] ([place]) Comment on above: Performed By: #### A FINN, CBC, ADIFF, BMP, GFR #### [address] [address] Calcium [Mass/Vol] 9.3 mg/dL Normal 8.7-10.4 [facility] ([place]) Comment on above: Performed By: #### A FINN, CBC, ADIFF, BMP, GFR #### [address] [address] Chloride [Moles/Vol] 108 mmol/L Normal 98-110 [facility] ([place]) Comment on above: Performed By: #### A FINN, CBC, ADIFF, BMP, GFR #### [address] [address] CO2 [Moles/Vol] 28 mmol/L Normal 22-32 [facility] ([place]) Comment on above: Performed By: #### A FINN, CBC, ADIFF, BMP, GFR #### [address] [address] Creatinine [Mass/Vol] 0.86 mg/dL Normal 0.60-1.40 [facility] ([place]) Comment on above: Performed By: #### A FINN, CBC, ADIFF, BMP, GFR #### [address] [address] Electrolyte Balance 5.0 mEq/L Normal 4.0-15.0 [facility] ([place]) Comment on above: Performed By: #### A FINN, CBC, ADIFF, BMP, GFR #### [address] [address] Glucose [Mass/Vol] 164 mg/dL High 70-110 [facility] ([place]) Comment on above: Performed By: #### A FINN, CBC, ADIFF, BMP, GFR #### [address] [address] Potassium [Moles/Vol] 4.3 mmol/L Normal 3.5-5.0 [facility] ([place]) Comment on above: Performed By: #### A FINN, CBC, ADIFF, BMP, GFR #### [place] [address] Sodium [Moles/Vol] 141 mmol/L Normal 136-145 [facility] ([place]) Comment on above: Performed By: #### A FINN, CBC, ADIFF, BMP, GFR #### [place] [address] Urea nitrogen [Mass/Vol] 20.0 mg/dL Normal 8.0-22.0 [facility] ([place]) Comment on above: Performed By: #### A FINN, CBC, ADIFF, BMP, GFR #### [place] [address] CBCon 11-14-2023 Erythrocyte distribution width (RBC) [Ratio] 14.5 % Normal 11.5-15.5 [facility] ([place]) Comment on above: Performed By: #### A FINN, CBC, ADIFF, BMP, GFR #### [place] [address] Hematocrit (Bld) [Volume fraction] 42.8 % Normal 40.0-52.0 [facility] ([place]) Comment on above: Performed By: #### A FINN, CBC, ADIFF, BMP, GFR #### [place] [address] Hgb 14.5 G/dL Normal 13.0-17.5 [facility] ([place]) Comment on above: Performed By: #### A FINN, CBC, ADIFF, BMP, GFR #### [place] [address] MCH (RBC) [Entitic mass] 27.9 pg Normal 27.0-33.0 [facility] ([place]) Comment on above: Performed By: #### A FINN, CBC, ADIFF, BMP, GFR #### [place] [address] MCHC 33.9 G/dL Normal 32.0-36.0 [facility] ([place]) Comment on above: Performed By: #### A FINN, CBC, ADIFF, BMP, GFR #### [place] [address] MCV (RBC) [Entitic vol] 82.4 fL Normal 81.0-100.0 [facility] ([place]) Comment on above: Performed By: #### A FINN, CBC, ADIFF, BMP, GFR #### [place] [address] Platelet 163 10 3/mcL Normal 150-450 [facility] ([place]) Comment on above: Performed By: #### A FINN, CBC, ADIFF, BMP, GFR #### [place] [address] Platelet mean volume (Bld) [Entitic vol] 8.2 fL Normal 6.4-10.5 [facility] ([place]) Comment on above: Performed By: #### A FINN, CBC, ADIFF, BMP, GFR #### [place] [address] RBC 5.20 10 6/mcL Normal 4.50-6.00 [facility] ([place]) Comment on above: Performed By: #### A FINN, CBC, ADIFF, BMP, GFR #### [place] [address] WBC 7.7 10 3/mcL Normal 4.5-10.8 [facility] ([place]) Comment on above: Performed By: #### A FINN, CBC, ADIFF, BMP, GFR #### [place] [address] HOMOon 11-14-2023 Homocysteine 12.5 umol/l Normal 3.7-13.9 [facility] ([place]) Comment on above: Result Comment: No te - New Reference Range in effect 20 Performed By: #### A FINN, CBC, ADIFF, BMP, GFR #### [place] [address] LABORATORYOrdered By: Orly Soto on 11-14-2023 Anti-Thrombin III 115 % Normal 84 - 126 % AH Coagulation S APC Factor V Resistance 3.1 ratio Invalid Interpretation Code AH Coagulation S Comment on above: Result Comment: This APCV result demonstrates no Resistance to Activated Protein C. Interpretive Data: APC Factor V Resistance Reference Range: <= 2.3 Positive > 2.3 Negative Dil Maikol Viper Venom 50.8 s High 30.0 - 42.0 seconds AH Coagulation S Comment on above: Result Comment: DRVV T Confirmation Test Performed: POSITIVE LA Interpretation See Below 11 (11/14/23 1:17 PM) Normal AH Coagulation S Comment on above: Result Comment: Lupu s Anticoagulant DETECTED by DRVVT method. Platelet neutraliz. Not Done (11/14/23 1:17 PM) Normal AH Coagulation S Protein C 117 % Normal >=80% AH [facility] SS Protein S Free Antigen 73 % Low 74 - 146 % AH Coagulation S Comment on above: Interpretive Data: P rotein S Type II deficiency (very rare) is not detected by this assay. (Pathophysiology of Haemostasis and Thrombosis 04: 33:202-205 and Thrombosis Haemostasis 2000; 84:918) LABORATORYOrdered By: [employer] CONTRIBUTOR_SYSTEM on 11-14-2023 Cardiolipin IgA (LC) APL U/mL 1 Invalid Interpretation Code 0-11 Sendouts Comment on above: Result Comment: Nega tive: <12 Indeterminate: 12 - 20 Low-Med Positive: >20 - 80 High Positive: >80 Performed At: [address] [id number] Dominik Marcum PhD Ph:[phone] Cardiolipin IgG (LC) 11 GPL U/mL Invalid Interpretation Code 0-14 Sendouts Comment on above: Result Comment: Nega tive: <15 Indeterminate: 15 - 20 Low-Med Positive: >20 - 80 High Positive: >80 Performed At: [address] [id number] Dominik Marcum PhD Ph:[phone] Cardiolipin IgM (LC) MPL U/mL Invalid Interpretation Code 0-12 Sendouts Comment on above: Result Comment: Nega tive: <13 Indeterminate: 13 - 20 Low-Med Positive: >20 - 80 High Positive: >80 Performed At: [address] [id number] Dominik Marcum PhD Ph:[phone] LABORATORYOrdered By: SYSTEM SYSTEM on 11-14-2023 Homocysteine [Moles/Vol] 12.5 umol/L Normal 3.7 - 13.9 umol/L AH ADM SS Comment on above: Interpretive Data: * *Note - New Reference Range in effect 20 LABORATORYOrdered By: VENANCIO TEJADA CONTRIBUTOR_SYSTEM on 11-14-2023 PT Gene Mut Prothrombin Gene Mutation Invalid Interpretation Code Sendouts SS Comment on above: Result Comment: Yohana nix Accession Number: [id number] Result: NORMAL Interpretation: The DNA sample is negative for the c.*97G>A variant (legacy name 05407L>A) in the 3' untranslated region of the Factor II (F2) gene. This result is not associated with an increased risk of thromboembolic disease. Thromboembolic disease is a multifactorial disorder and other causes are not excluded by this result. Methodology: Isolated Genomic DNA from the patient's blood specimen is evaluated for the c*97G>A ([id number]) variant of the F2 gene [RefSeq [id number];GRCh38/hg38] by multiplex polymerase chain reaction (PCR) followed by melting curve analysis. Limitations: This assay is designed to detect the c.*97G>A (29196E>A) variant in the F2 gene. Uncommon variants or single nucleotide polymorphisms may affect binding of probes and may rarely result in false negative, false positive or indeterminate results. This assay does not detect other disease-associated rare variants in F2 or other causes of thromboembolic disease. Disclaimer: This test was developed and its performance characteristics determined by [facility] [place] [facility] It has not been cleared or approved by the FDA. [facility] is regulated under CLIA as certified to perform high- complexity testing. This test is used for clinical purposes. It should not be regarded as investigational or for research. Testing and interpretation performed at [facility], [address] [place] [id number]. CLIA Number: [id number] References: 1) Inheritied Thrombophilias in . ACOG Practice Bulletin. No. 197. [place] [employer]. Obsete Gynecol 2018;132:e18-34. 2) Angel Luis SR, Jasiel FR, Toni PH, and Josefina HERZOG. A common genetic variation in the 3'-untranslated region of the prothrombin gene is associated with elevated plasma prothrombin levels and an increase in venous thrombosis. Blood 88:3698-703, 1995. 3) Peggy Balderas, Emerson Monson, Marycarmen C, Marco Mclaughlin. Prothrombin 78580H>T: 16 new cases, association with the 34052I>G polymorphism, and literature review. J Thromb Haemost. 2009;9:1585-7. As reviewed by Ashtyn Dickerson MD Performed By: Adventoris Ene [address]. [place] [address] Human Resources Manager: Scott DIALLO#: [id number] LABORATORYOrdered By: Dano Rodgers on 11-14-2023 Cholesterol [Mass/Vol] 162 mg/dL Normal 50 - 199 mg/dL AH ADM SS Comment on above: Interpretive Data: C holesterol Reference Interval: Less than 200 Desirable 200-239 Borderline high risk 240 and above High risk Cholesterol in HDL [Mass/Vol] 24 mg/dL Low 40 - 59 mg/dL AH ADM SS Cholesterol in LDL [Mass/Vol] 92 mg/dL Normal 0 - 129 mg/dL ADM SS Triglyceride [Mass/Vol] 228 mg/dL High 3 - 149 mg/dL AH ADM SS LIPIDon 11-14-2023 Cholesterol [Mass/Vol] 162 mg/dL Normal 50-199 [facility] ([place]) Comment on above: Result Comment: Chol esterol Reference Interval: Less than 200 Desirable 200-239 Borderline high risk 240 and above High risk Performed By: #### A FINN, CBC, ADIFF, BMP, GFR #### [address] [address] Cholesterol in HDL [Mass/Vol] 24 mg/dL Low 40-59 [facility] ([place]) Comment on above: Performed By: #### A FINN, CBC, ADIFF, BMP, GFR #### [address] [address] Cholesterol in LDL [Mass/Vol] 92 mg/dL Normal 0-129 [facility] ([place]) Comment on above: Performed By: #### A FINN, CBC, ADIFF, BMP, GFR #### [address] [address] Triglyceride [Mass/Vol] 228 mg/dL High 3-149 [facility] ([place]) Comment on above: Performed By: #### A FINN, CBC, ADIFF, BMP, GFR #### [address] [address] MRI BRAIN W/O CONTRASTon MRI BRAIN W/O CONTRAST ORIGINAL HISTORY: Stroke COMPARISON: No TECHNIQUE: 1. Sagittal T1-weighted images. 2. Axial T2-weighted and T2*-weighted images. 3. Axial FLAIR images. 4. Axial diffusion-weighted images with ADC map. FINDINGS: There is a 1 cm focus of restricted diffusion in the posterior limb of the left internal capsule. There is mild associated T2 hyperintensity. The ventricles and sulci are normal in size and configuration. There are no abnormal intra or extra-axial fluid collections. There are mild punctate and nodular T2 hyperintensities in the cerebral white matter, significantly greater on the right. Jensen-white matter differentiation is maintained. The orbital contents are normal in appearance. There is mild sinus disease. IMPRESSION: Acute left basal ganglia lacunar infarct. Small vessel ischemic disease, significantly greater on the right. Interpreted by: Mikey Lyn MD Preliminary Report By: Mikey Lyn MD Electronically signed By Mikey Lyn MD Dictated Date: 11/14/2023 1:19:45 PM Prelim Date: 11/14/2023 1:21:40 PM Sign Date: 11/14/2023 1:21:40 PM Ordering Provider: JENNY Oliveira [facility] ([place]) A1Con 11-13-2023 HbA1c (Bld) [Mass fraction] 9.2 % High 4.0-6.0 [facility] ([place]) Comment on above: Performed By: #### A FINN, CBC, ADIFF, BMP, GFR #### [address] [address] LABORATORYOrdered By: SYSTEM SYSTEM on 11-13-2023 HbA1c (Bld) [Mass fraction] 9.2 % High 4.0 - 6.0 % Auto [facility] SS Cardiac echo study Procedure on 10-14-2022 Technically difficult study. Definity contrast was used. Normal left ventricular cavity size, wall motion and systolic function. LV wall thickness is mildly increased. Estimated LVEF: 55- 60%. Normal right ventricular size and systolic function. Aortic valve morphology/leaflets not well-visualized. No significant aortic valve stenosis and regurgitation per Doppler interrogation. Trace pericardial effusion. Normal IVC size. Emily Nielsen (Electronically Signed) Final Date: 14 October 2022 14:20 [facility] Transthoracic Echo Report KANNAN SOTELO Exam Date: 10/14/2022 11:18 Ordering Physician: IRWIN BECK Age 52 Gender: M Exam Location: [facility] Echo Primary Care Physician: Unspecified Provider, MD : : 1970 Ht (in): 63 Wt (lb): 220 Technologist: BRICE BASURTO RDCS BSA: 2.16 m Procedure CPT: 10406 Patient Room: [facility] Indications: Other, Please Specify in Comments CARDIAC HISTORY Established Nutrition [employer] Ambassador: None Shortness of Breath: No Actively having Chest Pain: No History of CABG: Unknown Date: Unknown History of PTCA/Stent: Unknown Date: Unknown History of Valve Intervention: Unknown Date: Unknown Valve Intervention Details: N/A Other History: N/A BP: 142 / 88 HR: 76 Contrast: Definity Technical Quality: Adequate with definity MEASUREMENTS (Male / Female) Normal Values 2D ECHO LV Diastolic Diameter LAN 5.2 cm 4.2 - 5.9 / 3 LV Stroke Volume MOD 4C 60.6 cm LV Systolic Diameter PLAX 4.0 cm LV Cardiac Index MOD 4C 2135.3 cm IVS Diastolic Thickness 1.1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 07-17-2024 ambulatory Rivka Naranjo OTR/L [facility] Comment on above: Flaccid hemiplegia a ffecting right dominant side, unspecified etiology (HCC) (Primary Dx) Start: 07-16-2024 End: 07-16-2024 ambulatory MARTITA ERVIN [facility] Start: 07-12-2024 End: 07-12-2024 Coordination of care plan Yanna Prabhakar GRAPHOTYPE OPERATOR/L [facility] Comment on above: Left basal ganglia e mbolic stroke (HCC) (Primary Dx); Weakness; Lack of coordination; Right shoulder pain, unspecified chronicity; Subluxation of right shoulder joint, subsequent encounter Start: 07-12-2024 End: 07-12-2024 ambulatory Yannaher Durant CUCA/L [facility] Comment on above: Flaccid hemiplegia a ffecting right dominant side, unspecified etiology (HCC) (Primary Dx) Start: 07-10-2024 End: 07-10-2024 ambulatory Ousmane [place] WINDOW REPAIRER Work Phone: [facility] Comment on above: Flaccid hemiplegia a ffecting right dominant side, unspecified etiology (HCC) (Primary Dx) Start: 07-10-2024 End: 07-10-2024 Coordination of care plan Yannaher Durant GRAPHOTYPE OPERATOR/L [facility] Comment on above: Left basal ganglia e mbolic stroke (HCC) (Primary Dx); Weakness; Lack of coordination; Right shoulder pain, unspecified chronicity; Subluxation of right shoulder joint, subsequent encounter Start: 07-10-2024 End: 07-10-2024 ambulatory MARTITA ERVIN Facility:[id number] Start: 07-03-2024 End: 07-03-2024 ambulatory Ousmane [place] WINDOW REPAIRER Work Phone: [facility] Comment on above: Flaccid hemiplegia a ffecting right dominant side, unspecified etiology (HCC) (Primary Dx) Start: 07-03-2024 End: 07-03-2024 Coordination of care plan Yanna Prabhakar CUCA/L [facility] [place] Comment on above: Left basal ganglia e mbolic stroke (HCC) (Primary Dx); Weakness; Lack of coordination; Right shoulder pain, unspecified chronicity; Subluxation of right shoulder joint, subsequent encounter Start: 06-28-2024 End: 06-28-2024 Coordination of care plan Yanna Prabhakar GRAPHOTYPE OPERATOR/L [facility] [place] Comment on above: Left basal ganglia e mbolic stroke (HCC) (Primary Dx); Weakness; Lack of coordination; Right shoulder pain, unspecified chronicity; Subluxation of right shoulder joint, subsequent encounter Start: 06-28-2024 End: 06-28-2024 ambulatory Yanna Prabhakar GRAPHOTYPE OPERATOR/L [facility] Comment on above: Flaccid hemiplegia a ffecting right dominant side, unspecified etiology (HCC) (Primary Dx) Start: 06-19-2024 End: 06-19-2024 Coordination of care plan Rivka [place] OTR/L [facility] [place] Comment on above: Left basal ganglia e mbolic stroke (HCC) (Primary Dx); Weakness; Lack of coordination; Right shoulder pain, unspecified chronicity; Subluxation of right shoulder joint, subsequent encounter Start: 06-19-2024 End: 06-19-2024 ambulatory Rivka Bolivar OTR/L [facility] [place] Comment on above: Flaccid hemiplegia a ffecting right dominant side, unspecified etiology (HCC) (Primary Dx) Start: 06-12-2024 End: 06-12-2024 [facility]:[id number] Start: 06-07-2024 End: 06-07-2024 ambulatory Yanna Prabhakar CUCA/L [facility] Start: 06-07-2024 End: 06-07-2024 Coordination of care plan Yanna Prabhakar CUCA/L [facility] Comment on above: Left basal ganglia e mbolic stroke (HCC) (Primary Dx); Weakness; Lack of coordination; Right shoulder pain, unspecified chronicity; Subluxation of right shoulder joint, subsequent encounter Start: 06-05-2024 End: 06-05-2024 Coordination of care plan Yanna Prabhakar CUCA/L [facility] [place] Comment on above: Left basal ganglia e mbolic stroke (HCC) (Primary Dx); Weakness; Lack of coordination; Right shoulder pain, unspecified chronicity; Subluxation of right shoulder joint, subsequent encounter Start: 06-05-2024 End: 06-05-2024 ambulatory Yanna Prabhakar GRAPHOTYPE OPERATOR/L [facility] [place] Start: 05-31-2024 End: 05-31-2024 Coordination of care plan Yanna Prabhakar CUCA/L [facility] [place] Comment on above: Left basal ganglia e mbolic stroke (HCC) (Primary Dx); Weakness; Lack of coordination; Right shoulder pain, unspecified chronicity; Subluxation of right shoulder joint, subsequent encounter Start: 05-31-2024 End: 05-31-2024 ambulatory Yanna Prabhakar CUCA/L [facility] [place] Start: 05-25-2024 End: 05-25-2024 ambulatory [facility] Facility:[id number] Start: 05-24-2024 End: 05-24-2024 Coordination of care plan Rivka [place]ivar OTR/L [facility] [place] Comment on above: Left basal ganglia e mbolic stroke (HCC) (Primary Dx); Weakness; Lack of coordination; Right shoulder pain, unspecified chronicity; Subluxation of right shoulder joint, subsequent encounter Start: 05-24-2024 End: 05-24-2024 ambulatory Rivka Bolivar OTR/L [facility] [place] Start: 04-28-2024 End: 04-28-2024 Telephone encounter Ashlee Barajas Research Coordinator Work Phone: [facility] Comment on above: Research (IRB [id number] RESTORE Stroke Study - not eligible at this time) Start: 04-20-2024 End: 04-20-2024 Telephone encounter Niurka Barnes MD Work Phone: Cerebrovascular Comment on above: Consult Start: 04-18-2024 End: 04-18-2024 Patient encounter procedure Niurka Barnes MD Work Phone: Cerebrovascular Comment on above: Intracranial vascula r stenosis (Primary Dx); Cerebrovascular accident (CVA), unspecified mechanism (HCC); Hemiparesis of right dominant side as late effect of cerebral infarction (HCC) Start: 04-18-2024 End: 04-18-2024 ambulatory YOSEPH RUIZ Facility:[facility] Start: 04-03-2024 End: 04-03-2024 Telephone encounter Niurka Barnes MD Work Phone: Neurology Comment on above: Records/Imaging Start: 02-28-2024 End: 03-01-2024 Telephone encounter Yoseph Ruiz DO Work Phone: Hematology/Oncology Start: 02-17-2024 End: 02-17-2024 ambulatory YOSEPH RUIZ Facility:[facility] Start: 02-13-2024 End: 02-17-2024 Telephone encounter Yoseph Ruiz DO Work Phone: Hematology/Oncology Comment on above: Follow Up Start: 01-18-2024 End: 01-18-2024 ambulatory Yoseph Ruiz DO Work Phone: Hematology/Oncology Comment on above: Primary hypercoagula ble state (HCC) (Primary Dx) Start: 01-18-2024 End: 01-18-2024 Patient encounter procedure Yoseph Ruiz DO Work Phone: Hematology/Oncology Start: 12-24-2023 End: 12-24-2023 ambulatory MAHNAZ MARTINI Facility:[facility] Start: 12-24-2023 End: 12-24-2023 Patient encounter procedure MAHNAZ MARTINI PA-C [facility] Start: 11-19-2023 End: 12-09-2023 Evaluation and management of inpatient YOSEPH LAGOS DO Deena Watt Start: 11-13-2023 End: 11-19-2023 Evaluation and management of inpatient DR JENNY RODRIGUEZ MD [facility] Start: 10-14-2022 End: 10-15-2022 ambulatory MARTITA ERVIN [facility] Start: 10-14-2022 End: 10-14-2022 Subsequent hospital visit by physician Irwin Beck Work Phone: [phone] [facility] Comment on above: Congestive heart liza lure, unspecified HF chronicity, unspecified heart failure type (HCC) Start: 11-10-2021 ambulatory MARTITA ERVIN Facility: [facility] Start: 11-03-2021 End: 11-04-2021 ambulatory NONE NONE Facility:[facility] Start: 10-16-2020 End: 10-16-2020 Documentation procedure Yudith Bean RN [facility] Start: 10-14-2020 End: 10-18-2020 ambulatory PHYSICIAN [facility] Start: 10-14-2020 End: 10-14-2020 ambulatory OPAL HERNADEZ [facility] Start: 10-14-2020 End: 10-14-2020 Office outpatient visit 25 minutes Opal Hernadez [facility] Work Phone: [facility] Comment on above: Hyperlipidemia, unsp ecified hyperlipidemia type (Primary Dx); Injury of head, subsequent encounter; Stenosis of right middle cerebral artery; Back pain, unspecified back location, unspecified back pain laterality, unspecified chronicity Start: 10-01-2020 End: 10-03-2020 Evaluation and management of inpatient Elaine Garza Work Phone: [facility] Trauma Procedures Date Procedure Procedure Detail Performing Clinician Start: 11-27-2024 PSA screening MARTITA STOKES Comment on above: Performed By: #### 2 [id number] #### [facility],[address] [id number] Start: 11-23-2024 Ecg routine ecg w/le ast 12 lds i&r only Nicky Worthy DINING ROOM MANAGER.STOCK REPAIRER Work Phone: Start: 10-14-2022 Echo tthrc r-t 2d w/ wom-mode compl spec&colr d Irwin Beck Work Phone: Start: 10-14-2020 Lipid 1996 panel - S saturnino or Plasma Yoseph Ruiz DO Work Phone: Start: 10-03-2020 Glucose [Mass/volume ] in Blood Celso López Work Phone: Start: 10-03-2020 Glucose [Mass/volume ] in Blood Celso López Work Phone: Start: 10-03-2020 Glucose [Mass/volume ] in Blood Celso López Work Phone: Start: 10-03-2020 Basic metabolic 1998 panel - Serum or Plasma Radha Wise Work Phone: Start: 10-03-2020 Complete blood count (hemogram) panel - Blood by Automated count Vanesa Sanchez Work Phone: Start: 10-02-2020 Glucose [Mass/volume ] in Blood Celso López Work Phone: Start: 10-02-2020 Glucose [Mass/volume ] in Blood Celso López Work Phone: Start: 10-02-2020 Glucose [Mass/volume ] in Blood Celso López Work Phone: Start: 10-02-2020 Radex shoulder compl ete minimum 2 views Radha Wise Work Phone: Start: 10-02-2020 Glucose [Mass/volume ] in Blood Celso López Work Phone: Start: 10-02-2020 Glucose [Mass/volume ] in Blood Celso López Work Phone: Start: 10-02-2020 Glucose [Mass/volume ] in Blood Celso López Work Phone: Start: 10-02-2020 Basic metabolic 1998 panel - Serum or Plasma Radha Wise Work Phone: Start: 10-02-2020 Complete blood count (hemogram) panel - Blood by Automated count Vanesa Sanchez Work Phone: Start: 10-02-2020 Lactate [Moles/volum e] in Serum or Plasma Radha Wise Work Phone: Start: 10-02-2020 CT of head without contrast Judy Skaggs Work Phone: Start: 10-01-2020 Glucose [Mass/volume ] in Blood Celso López Work Phone: Start: 10-01-2020 Glucose [Mass/volume ] in Blood Celso López Work Phone: Start: 10-01-2020 Glucose [Mass/volume ] in Blood Celso López Work Phone: Start: 10-01-2020 Radex spine thoracol umbar junction min 2 views Judy Skaggs Work Phone: Start: 10-01-2020 CRESPO TOP Triage [facility] Start: 10-01-2020 Lactate [Moles/volum e] in Serum or Plasma Vanesa Sanchez Work Phone: Start: 10-01-2020 Beta hydroxybutyrate [Moles/volume] in Serum or Plasma Vanesa Sanchez Work Phone: Start: 10-01-2020 Comprehensive metabo lic 2000 panel - Serum or Plasma Vanesa Sanchez Work Phone: Start: 10-01-2020 Hemoglobin A1c/Hemoglobin.total in Blood Elisa Rogers Lorena Work Phone: Start: 10-01-2020 INR in Platelet poor plasma by Coagulation assay Vanesa Sanchez Work Phone: Start: 10-01-2020 LAVENDER TOP Triage [facility] Start: 10-01-2020 LIGHT BLUE TOP Triage [facility] Start: 10-01-2020 MINT GREEN TOP Triage [facility] Start: 10-01-2020 RAINBOW DRAW Triage [facility] Start: 10-01-2020 Blood group typing Soraida Marshall Work Phone: Start: 10-01-2020 Glucose [Mass/volume ] in Blood [facility] Start: 10-01-2020 CT angiography of ne ck vessels Mariah Fink Work Phone: Start: 10-01-2020 CT angiography of pu lmonary and abdominal and pelvic arteries Mariah Fink Work Phone: Start: 10-01-2020 CT THORACIC AND LUMB AR SPINE WITHOUT CONTRAST MOD 26 Mariah Fink Work Phone: Start: 10-01-2020 Basic metabolic 1998 panel - Serum or Plasma Vanesa Tod Sanchez Work Phone: Start: 10-01-2020 Beta hydroxybutyrate [Moles/volume] in Serum or Plasma Vanesa Tod Natanaeljosefinamarla Work Phone: Start: 10-01-2020 Blood type and Indir ect antibody screen panel - Blood Elaine Garza Work Phone: Start: 10-01-2020 COVID-19/INFLUENZA A ,B MOLECULAR Elaine Garza Work Phone: Start: 10-01-2020 Ethanol [Mass/volume ] in Serum or Plasma Elaine Garza Work Phone: Start: 10-01-2020 RAINBOW DRAW Triage [facility] Start: 10-01-2020 Urinalysis Vanesa Sanchez Work Phone: Start: 10-01-2020 URINE CRESPO CONTAINER Tr iage Protocol Emergency Start: 10-01-2020 Radex wrist complete minimum 3 views Mariah Fink Work Phone: Start: 10-01-2020 Radex elbow complete minimum 3 views Mariahkimberli Fink Work Phone: Start: 10-01-2020 CT cervical spine wi thout contrast Mariahkimberli Fink Work Phone: Start: 10-01-2020 CT of head without contrast Mariahkimberli Bacha Work Phone: Start: 10-01-2020 CT of maxillofacial area without contrast Mariahkimberli Fink Work Phone: Start: 10-01-2020 Radiologic examinati on tibia & fibula 2 views Elaine Campbell [employer] Work Phone: Start: 10-01-2020 Radex shoulder 1 view Lissette Campbell [employer] Work Phone: Start: 10-01-2020 Radiologic exam ches t single view Elaine Campbell [employer] Work Phone: Start: 10-01-2020 Assay of lactate Abena Campbell [employer] Work Phone: Start: 10-01-2020 Blood gas analysis Bandar Campbell [employer] Work Phone: Plan of Treatment Date Care Activity Detail Author Start: 10-01-2030 Tetanus vaccination Tetanus: Every 10yrs [facility] Start: 10-01-2030 Urine microalbumin profile DTaP,Tdap,Td Vaccine (2 - Td or Tdap) [facility] Start: 01-17-2027 Diabetes Screening Diabetes Screening [facility] Start: 11-23-2025 BP Controlled (<130/80) BP Controlled (<130/80) [facility] Start: 10-14-2025 Lipid panel Lipid Screening [facility] Start: 08-23-2025 End: 08-23-2025 Patient encounter procedure 08/23/2025 1:40 PM EST Office Visit [facility] [address] [place] [address] Nicky Worthy APRN.[facility] [address] [facility] [address] [place] [address] 9 month f/u LVH *40 mins per LC [facility] Comment on above: 9 month f/u LVH *40 mins per LC Start: 02-19-2025 Influenza vaccination Influenza Vaccine (Season Ended) [facility] Start: 01-09-2025 End: 01-09-2025 Patient encounter procedure 01/09/2025 11:30 AM EDT Office Visit Cerebrovascular [address] [place] [address] Niurka Barnes MD [address] [place], [place] [id number] 6 month follow up [facility] Comment on above: 6 month follow up Start: 11-23-2024 End: 11-23-2024 Patient encounter procedure 11/23/2024 9:20 AM EDT Office Visit [facility] [address] [place] [phone] Nicky Worthy APRN.[facility] [address] [place], [place] [id number] 6 month follow up, hx of Stroke and HTN. [facility] Comment on above: 6 month follow up, hx of Stroke and HTN. Start: 11-22-2024 End: 11-22-2024 Patient encounter procedure Cardiology Comment on above: Dx: Preventive cardiology referral, stro ng family hx of premature CAD, evidence of Intracranial atherosclerosis Start: 10-17-2024 End: 10-17-2024 Patient encounter procedure 10/17/2024 11:00 AM EDT Office Visit Cerebrovascular [address] [place] [address] Niurka Barnes MD [address] [place] [address] 6 month follow up Cerebrovascular Comment on above: 6 month follow up Start: 10-04-2024 End: 10-04-2024 ambulatory [facility] Comment on above: stroke Start: 10-02-2024 End: 10-02-2024 ambulatory [facility] Comment on above: stroke Start: 09-27-2024 End: 09-27-2024 ambulatory [facility] Comment on above: stroke Start: 2024 Prostate specific antigen measurement Prostate Cancer Screening Discussion [facility] Start: 2024 End: 2024 ambulatory [facility] Comment on above: stroke Start: 09-20-2024 End: 09-20-2024 ambulatory [facility] Comment on above: stroke Start: 09-18-2024 End: 09-18-2024 ambulatory [facility] Comment on above: ot pt Start: 09-13-2024 End: 09-13-2024 ambulatory [facility] Comment on above: stroke Start: 09-11-2024 End: 09-11-2024 ambulatory [facility] Comment on above: ot pt Start: 09-06-2024 End: 09-06-2024 ambulatory [facility] Comment on above: stroke Start: 09-04-2024 End: 09-04-2024 ambulatory [facility] Comment on above: pt ot Start: 09-01-2024 End: 09-01-2024 Documentation procedure 09/01/2024 Plan of Care Documentation [facility] [address] [place] [address] [facility] Start: 08-30-2024 End: 08-30-2024 ambulatory [facility] Comment on above: stroke PROGRESS 08/17/24 Start: 08-28-2024 End: 08-28-2024 ambulatory [facility] Comment on above: ot pt Start: 08-23-2024 End: 08-23-2024 ambulatory 08/23/2024 1:45 PM EST OT/PT/Speech Visit [facility] [address] [place] [address] Yanna Durant CUCA/[place] ot [facility] Comment on above: ot Start: 08-21-2024 End: 08-21-2024 ambulatory [facility] Comment on above: ot PROGRESS 08/17/24 Start: 08-16-2024 End: 08-16-2024 ambulatory [facility] Comment on above: progress pt Start: 08-14-2024 End: 08-14-2024 ambulatory [facility] Comment on above: ot pt Start: 08-09-2024 End: 08-09-2024 ambulatory [facility] Comment on above: stroke Start: 08-07-2024 End: 08-07-2024 ambulatory [facility] Comment on above: stroke Start: 08-02-2024 End: 08-02-2024 ambulatory [facility] Comment on above: stroke Start: 07-31-2024 End: 07-31-2024 ambulatory [facility] Comment on above: stroke Start: 07-26-2024 End: 07-26-2024 ambulatory [facility] Comment on above: stroke Start: 07-24-2024 End: 07-24-2024 ambulatory [facility] Comment on above: stroke Start: 07-19-2024 End: 07-19-2024 ambulatory [facility] Comment on above: stroke Start: 07-17-2024 End: 07-17-2024 ambulatory [facility] Comment on above: PROGRESS Start: 07-12-2024 End: 07-12-2024 ambulatory [facility] Comment on above: stroke Start: 07-10-2024 End: 07-10-2024 ambulatory [facility] Comment on above: stroke Start: 06-28-2024 End: 06-28-2024 ambulatory [facility] Comment on above: stroke Start: 06-19-2024 End: 06-19-2024 ambulatory [facility] Comment on above: ot stroke Start: 06-12-2024 End: 06-12-2024 ambulatory [facility] Comment on above: ot Start: 06-07-2024 End: 06-07-2024 ambulatory 06/07/2024 1:45 PM EST OT/PT/Speech Visit [facility] [address] [place] [address] Yanna Durant OTA/L ot [facility] Comment on above: ot Start: 06-05-2024 End: 06-05-2024 ambulatory 06/05/2024 1:45 PM EST OT/PT/Speech Visit [facility] [address] [place] [address] Yanna Durant OTA/L ot [facility] Comment on above: ot Start: 05-25-2024 End: 05-25-2024 Patient encounter procedure [facility] Comment on above: New pt- referral f/ neuro in [place] h/o s trokes New pt- referral f/ neuro in [place] h/o strokes/nothing found outside [facility] New pt- referral f/ neuro in [place] h/o strokes/nothing found outside [facility]. (H.N.F) Start: 04-18-2024 End: 04-18-2024 Patient encounter procedure 04/18/2024 10:00 AM EDT Office Visit Cerebro[facility] [address] [place] [address] Niurka Barnes MD [address] [place] [id number] Cerebrovascular accident (CVA), unspecified mechanism (HCC) [I63.9] [facility] Comment on above: Cerebrovascular accident (CVA), unspecif ied mechanism (HCC) [I63.9] Start: 02-20-2024 Covid-19 Vaccine ( season) Covid-19 Vaccine ( season) [facility] Start: 02-20-2024 Covid-19 Vaccine ( season) Covid-19 Vaccine ( season) [facility] Start: 02-20-2024 [facility] Start: 02-13-2024 End: 05-14-[address] LUPUS ANTICOAG PL Lab Routine Primary hypercoagulable state (HCC) Expected: 02/13/2024, Expires: 05/14/2024 [facility] Work Phone: Comment on above: Expected: 02/13/2024, Expires: Start: 01-18-2024 End: 04-18-2024 Antithrombin actual/normal in Platelet poor plasma by Chromogenic method [facility] Comment on above: Expected: 01/18/2024, Expires: Start: 01-18-2024 End: 04-18-2024 Antithrombin Ag actual/normal in Platelet poor plasma by Immunoassay [facility] Comment on above: Expected: 01/18/2024, Expires: Start: 01-18-2024 End: 04-18-[address] [facility] Work Phone: Comment on above: Expected: 01/18/2024, Expires: Start: 01-18-2024 End: 04-18-2024 Protein C Ag actual/normal in Platelet poor plasma by Immunoassay [facility] Comment on above: Expected: 01/18/2024, Expires: Start: 01-18-2024 End: 04-18-2024 PROTEIN S CLOTTABLE [facility] Comment on above: Expected: 01/18/2024, Expires: Start: 01-18-2024 End: 04-18-2024 PROTEIN S IMMUNO [facility] Comment on above: Expected: 01/18/2024, Expires: Start: 02-19-2023 Covid-19 Vaccine () Covid-19 Vaccine () [facility] Start: 02-19-2022 Influenza vaccination given INFLUENZA VACCINE (#1) [facility] Start: 04-02-2021 Hemoglobin A1c measurement A1C [facility] Start: 10-14-2020 End: 10-14-2020 Office Visit 10/14/2020 Office Visit [facility] Start: 02-20-2020 Influenza vaccination Sequential Influenza Vaccine (#1) [facility] Start: 02-20-2020 Influenza vaccination given Sequential Influenza Vaccine (#1) [facility] Start: 09-26-2019 Administration of herpes zoster vaccine Zoster Vaccines (1 of 2) [facility] Start: 09-26-2019 Pneumococcal Vaccine: 50+ (1 of 1 - PCV) Pneumococcal Vaccine: 50+ (1 of 1 - PCV) [facility] Start: 09-26-2019 Screening for malignant neoplasm of colon [facility] Start: 09-26-2019 Shingrix Vaccine (1 of 2) Shingrix Vaccine (1 of 2) [facility] Start: 09-26-2019 Zoster vaccine hzv live for subcutaneous use ZOSTER (SHINGLES) VACCINE (1 of 2) [facility] Start: 2014 Prostate specific antigen measurement Prostate Cancer Screening Discussion [facility] Start: 2014 Screening for malignant neoplasm of colon [facility] Start: 2004 Fasting lipid profile LIPID SCREENING [facility] Start: 1988 Hepatitis B Vaccine (1 of 3 - 19+ 3-dose series) Hepatitis B Vaccine (1 of 3 - 19+ 3-dose series) [facility] Start: 09-26-1987 Annual PCP Team Chronic Disease Visit Annual PCP Team Chronic Disease Visit [facility] Start: 09-26-1987 ANNUAL WELLNESS VISIT ANNUAL WELLNESS VISIT [facility] Start: 09-26-1987 Anxiety Screening Anxiety Screening [facility] Start: 09-26-1987 Depression Screening Depression Screening [facility] Start: 09-26-1987 Hepatitis C antibody, confirmatory test Hepatitis C Screening [facility] Start: 09-26-1987 Hepatitis C screening Hepatitis C Screening [facility] Start: 09-26-1987 HIV screening HIV Screening [facility] Start: 1985 COVID-19 Vaccine (1) COVID-19 Vaccine (1) [facility] Start: 1984 HIV screening HIV Screening [facility] Start: 1981 Adolescent depression screening assessment Depression Screening (PHQ9) [facility] Start: 1981 Depression screening using PHQ-9 (Patient Health Questionnaire 9) score [facility] Start: 1980 Administration of diphtheria + tetanus + acellular pertussis vaccine DTAP/TDAP/TD VACCINE (1 - Tdap) [facility] Start: 09-26-1979 Diabetic foot examination Foot Exam [facility] Start: 09-26-1979 Microalbumin measurement, urine, quantitative Urine Microalbumin [facility] Start: 09-26-1979 Ophthalmic examination and evaluation Ophthalmology Exam [facility] Start: 1972 History and physical examination, annual for health maintenance Wellness Visit [facility] Start: 03-27-1970 COVID-19 VACCINE (#1) COVID-19 VACCINE (#1) [facility] Start: 1969 Prostate specific antigen measurement PSA Level [facility] CT angiography of pulmonary and abdominal and pelvic arteries CT Angiogram Chest Abdomen Pelvis Imaging STAT 10/01/2020 9:40 AM EDT [facility] CT Thoracic And Lumb ar Spine Without Contrast Reconstructed CT Thoracic And Lumbar Spine Without Contrast Reconstructed Imaging STAT 10/01/2020 9:40 AM EDT [facility] ECG COMPLETE ECG COMPLETE ECG Routine Hypertension, unspecified type 11/23/2024 9:18 AM EDT [facility] Work Phone: End: 11-21-2025 ECG COMPLETE ECG COMPLETE ECG Routine EKG abnormalities 1 Occurrences starting 11/21/2024 until 11/21/2025 [facility] Work Phone: Comment on above: 1 Occurrences starting 11/21/2024 until 11/21/[address] ANTICO[address] Lab Routine Primary hypercoagulable state (HCC) 02/17/2024 1:28 PM EDT [facility] Immunizations Immunization Date Immunization Notes Care Provider Stanton ferguson 10-01-2020 tetanus toxoid, redu lonnie diphtheria toxoid, and acellular pertussis vaccine, adsorbed Elaine Garza [facility] 10-01-2020 diphtheria, tetanus toxoids and acellular pertussis vaccine, unspecified formulation [facility] Payers Date Payer Category Payer Private Health Insurance HUMANA HUMANA MEDICAID [facility] [id number] 2024-Present [address] [address] [place] [address] Medicaid [id number] 2023 Medicaid [id number] 2023 Self-pay 2023 Medicaid [id number] 2023 Medicare [id number] 2023 Medicare [id number] 2023 Medicare [id number] 2022 Unknown BUREAU DISABILIT Y BUREAU DISABILITY [id number] 2022-2022 [address] [place] [address] [id number] 2020 Unknown [id number] 2020 Worker's Compensation [employer] C [employer] 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* [id number] 2020-Present [id number] 2020 Worker's Compensation [id number] 1969 Unknown [id number] .297 1969 Unknown [id number] [id number] .902 1969 Unknown [id number] [id number] .627 1969 Unknown [id number] [id number] .627 1969 Unknown [id number] [id number] .627 1969 Unknown [id number] [id number] .627 1969 Unknown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 use to cont e-stim with home programming. Pt stated understanding. Skilled Intervention: Skilled judgment used to assess appropriate program for balance and coordination activity. Education and demonstration for posture and positioning for tone management. Patient education as noted. Billing Neuromuscular Re-Education Treatment Minutes: 40 Skilled Treatment Time Minutes (timed and untimed codes): 40 Total Session Time (minutes): 40 Session Start Time : 1350 Session Stop Time : 1430 NAVNEET [place] 2024 History of Present illness Narrative Episode Visit Count: 25 Therapist That Will Accept/Oversee The Plan Of Care: Rivka TOTH/[place] Start of Care Date: 05/24/24 Onset Date: 11/16/23 Plan of Care Certification Date: 08/14/24 Next Certification Due Date: 10/09/24 Patient Identified by Name and Date of : Yes REHABILITATION AND SPORTS THERAPY OCCUPATIONAL THERAPY TREATMENT NOTE ASSESSMENT: Cabrera Sotelo tolerated the session with no issues. He demonstrated improvements in hand ext. The patient will continue to benefit from ongoing skilled occupational therapy to progress toward set goals. PLAN FOR NEXT VISIT: cont interventions completed this date with TENS and NMES with object for fxnl grasp/release neuro re-training SUBJECTIVE: Pt reported he would like to obtain home TENS unit to cont e-stim. Pain: Pain Pain Level: 0 Post Treatment Pain Post Treatment Pain Level: 0 OBJECTIVE MEASURES WITH LEVEL OF FUNCTION: TREATMENT: Neuromuscular Re-Education: 1: Trialed qatari e-stim, shifting leads prior to finalization of location to elicit desired wrist and digit extension response. Completed without object for first first 5min with focus on brief finger flx for fist on rest period, then working to extend digits with qatari on, working with stim to increase ext range toward visual target to increase neuroplasticity. Additionally trialed table slides during on cycle for neuro re-training on forward reach and grasp to target. Cameroonian with cont for 1min for increased on cycle, then off [id number] rest as 10sec on was not long enough period to allow for full muscle engagement, 2.0 ramp and 86 intensity. Completed towel slides on tabletop with blocking to manage internal rotation tendencies. Edu to Pt on obtaining TENS unit prior to d/c on 10/09 to allow for training on use to cont e-stim with home programming. Pt stated understanding. Skilled Intervention: Skilled judgment used to assess appropriate program for balance and coordination activity. Education and demonstration for posture and positioning for tone management. Patient education as noted. Billing Neuromuscular Re-Education Treatment Minutes: 40 Skilled Treatment Time Minutes (timed and untimed codes): 40 Total Session Time (minutes): 40 Session Start Time : 1350 Session Stop Time : 1430 RHYS [place] documented in this encounter [facility] 2024 Note HNO ID: [id number] Author: KAYLYN PALM PTA Service: ? Author Type: Bookbinder Apprentice Type: Progress Notes Filed: 2024 15:23 Note Text: Episode Visit Count: 19 Therapist That Will Accept/Oversee The Plan Of Care: Crystal Dai Start of Care Date: 06/19/24 Onset Date: (approx 10/20/2023) Plan of Care Certification Date: 09/18/24 Next Certification Due Date: 11/18/24 Patient Identified by Name and Date of : Yes REHABILITATION AND SPORTS THERAPY PHYSICAL THERAPY TREATMENT NOTE ASSESSMENT: Cabrera Sotelo tolerated the session with fatigue and expected muscle soreness. He demonstrated difficulty with the exercises/balance activities performed today, but demonstrated determination to perform them, even if it requires help from this WINDOW REPAIRER. He required moderate to maximum assistance to get onto exercise equipment today. The patient will continue to benefit from ongoing skilled physical therapy to progress toward set goals. PLAN FOR NEXT VISIT: dynamic balance as tolerated, continue LE strengthening as tolerated SUBJECTIVE: Patient states he feels a lot better tiday and denies back and ankle pain today. Pain: Pain Pain Level: 0 Pain Location: Ankle - Right Additional Pain Information : Location 2 Pain Level 2: 0 Pain Location 2: Low Back/Lumbar Spine- Midline Post Treatment Pain Post Treatment Pain Level: 0 Post Treatment Pain Location: Ankle - Right Post Treatment Pain Score 2: 0/10 Post Treatment Pain Location 2: Low Back/Lumbar Spine- Midline OBJECTIVE MEASURES WITH LEVEL OF FUNCTION: TREATMENT: Therapeutic Exercise: 1: sci-fit lvl 3 x 6 mins for reciprocal gait movement (excluding for right hand) (sujective taken) 2: R leg extension machine 1p (8#) 10x3 3: B 4 in step ups x10 with BHR Skilled Intervention: Patient was educated in proper exercise technique and purpose for exercises. Skilled judgment was used in selection of appropriate interventions. Neuromuscular Re-Education: 1: Tandem walking with counter support x4 (moderate A required when turning) Skilled Intervention: Skilled judgment used to assess appropriate program for balance and coordination activity. Ensured patient safety with use of gait belt Gait Trainin: 103 ft with quad cane (wc follow + SBA for safety), + an addtional 40 ft with QC Skilled Intervention: Patient was provided stand by assist during pre-gait/gait training to prevent falls and insure safety. Gait belt utilized during session for safety. Billing Therapeutic Exercise Treatment Minutes: 25 Neuromuscular Re-Education Treatment Minutes: 5 Gait Training Treatment Minutes: 10 Skilled Treatment Time Minutes (timed and untimed codes): 40 Total Session Time (minutes): 41 Session Start Time : 1433 Session Stop Time : 1514 Kaylyn Oliveros [facility] 2024 History of Present illness Narrative Episode Visit Count: 19 Therapist That Will Accept/Oversee The Plan Of Care: Crystal Dai Start of Care Date: 06/19/24 Onset Date: (approx 10/20/2023) Plan of Care Certification Date: 09/18/24 Next Certification Due Date: 11/18/24 Patient Identified by Name and Date of : Yes REHABILITATION AND SPORTS THERAPY PHYSICAL THERAPY TREATMENT NOTE ASSESSMENT: Cabrera Sotelo tolerated the session with fatigue and expected muscle soreness. He demonstrated difficulty with the exercises/balance activities performed today, but demonstrated determination to perform them, even if it requires help from this WINDOW REPAIRER. He required moderate to maximum assistance to get onto exercise equipment today. The patient will continue to benefit from ongoing skilled physical therapy to progress toward set goals. PLAN FOR NEXT VISIT: dynamic balance as tolerated, continue LE strengthening as tolerated SUBJECTIVE: Patient states he feels a lot better tiday and denies back and ankle pain today. Pain: Pain Pain Level: 0 Pain Location: Ankle - Right Additional Pain Information : Location 2 Pain Level 2: 0 Pain Location 2: Low Back/Lumbar Spine- Midline Post Treatment Pain Post Treatment Pain Level: 0 Post Treatment Pain Location: Ankle - Right Post Treatment Pain Score 2: 0/10 Post Treatment Pain Location 2: Low Back/Lumbar Spine- Midline OBJECTIVE MEASURES WITH LEVEL OF FUNCTION: TREATMENT: Therapeutic Exercise: 1: sci-fit lvl 3 x 6 mins for reciprocal gait movement (excluding for right hand) (sujective taken) 2: R leg extension machine 1p (8#) 10x3 3: B 4 in step ups x10 with BHR Skilled Intervention: Patient was educated in proper exercise technique and purpose for exercises. Skilled judgment was used in selection of appropriate interventions. Neuromuscular Re-Education: 1: Tandem walking with counter support x4 (moderate A required when turning) Skilled Intervention: Skilled judgment used to assess appropriate program for balance and coordination activity. Ensured patient safety with use of gait belt Gait Trainin: 103 ft with quad cane (wc follow + SBA for safety), + an addtional 40 ft with QC Skilled Intervention: Patient was provided stand by assist during pre-gait/gait training to prevent falls and insure safety. Gait belt utilized during session for safety. Billing Therapeutic Exercise Treatment Minutes: 25 Neuromuscular Re-Education Treatment Minutes: 5 Gait Training Treatment Minutes: 10 Skilled Treatment Time Minutes (timed and untimed codes): 40 Total Session Time (minutes): 41 Session Start Time : 1433 Session Stop Time : 1514 Kaylyn Oliveros PTA documented in this encounter [facility] 09-20-2024 Note HNO ID: [id number] Author: RIVKA NARANJO OTR/L Service: ? Author Type: Occupational Therapist Type: Progress Notes Filed: 09/20/2024 14:46 Note Text: Episode Visit Count: 24 Therapist That Will Accept/Oversee The Plan Of Care: Rivka JOINER Start of Care Date: 05/24/24 Onset Date: 11/16/23 Plan of Care Certification Date: 08/14/24 Next Certification Due Date: 10/09/24 Patient Identified by Name and Date of : Yes REHABILITATION AND SPORTS THERAPY OCCUPATIONAL THERAPY TREATMENT NOTE ASSESSMENT: Cabrera Sotelo tolerated the session with decreased symptoms. He demonstrated improvements in active digital ext for object release. The patient will continue to benefit from ongoing skilled occupational therapy to progress toward set goals. PLAN FOR NEXT VISIT: cont interventions completed this date with TENS and NMES with object for fxnl grasp/release neuro re-training SUBJECTIVE: Pt reported he had a great weekend with family but wore himself out. Got a bike similar to UBE and feels it works forearms hard. Pain: Pain Pain Level: 0 Post Treatment Pain Post Treatment Pain Level: 0 OBJECTIVE MEASURES WITH LEVEL OF FUNCTION: TREATMENT: Neuromuscular Re-Education: 1: Trialed NMES and TENs on wrist extensors, shifting leads prior to finalization of location to elicit desired wrist and digit extension response. Completed without object for first trials of TENS with focus on brief finger flx for fist on rest period, then working to extend digits with TENS on, working with stim to increase ext range. Shifted to NMES following this to facilitate longer off cycles with Pt gripping yellow and green thera sponge during off cycle, then visualizing and working to release during on. Observed increased active digital ext post intervention with edu and training to watch release vs closing eyes to visualize to allow for visual and proprioceptive engagement to increase neuroplasticity. Trialed same grasp and release task with sponge with arm supported on w/c armrest with training to grasp when hand was supported on armrest, then extend elbow only to point that wrist hangs off to facilitate tenodesis to aid on object release, pulling object out of hand vs prying fingers open. Pt stated understanding and was motivated by performance this visit. Skilled Intervention: Skilled judgment used to assess appropriate program for balance and coordination activity. Patient education as noted. Billing Neuromuscular Re-Education Treatment Minutes: 45 Skilled Treatment Time Minutes (timed and untimed codes): 45 Total Session Time (minutes): 45 Session Start Time : 1350 Session Stop Time : 1435 RHYS [place] [facility] 09-20-2024 History of Present illness Narrative Episode Visit Count: 24 Therapist That Will Accept/Oversee The Plan Of Care: Rivka JOINER Start of Care Date: 05/24/24 Onset Date: 11/16/23 Plan of Care Certification Date: 08/14/24 Next Certification Due Date: 10/09/24 Patient Identified by Name and Date of : Yes REHABILITATION AND SPORTS THERAPY OCCUPATIONAL THERAPY TREATMENT NOTE ASSESSMENT: Cabrera B Sotelo tolerated the session with decreased symptoms. He demonstrated improvements in active digital ext for object release. The patient will continue to benefit from ongoing skilled occupational therapy to progress toward set goals. PLAN FOR NEXT VISIT: cont interventions completed this date with TENS and NMES with object for fxnl grasp/release neuro re-training SUBJECTIVE: Pt reported he had a great weekend with family but wore himself out. Got a bike similar to UBE and feels it works forearms hard. Pain: Pain Pain Level: 0 Post Treatment Pain Post Treatment Pain Level: 0 OBJECTIVE MEASURES WITH LEVEL OF FUNCTION: TREATMENT: Neuromuscular Re-Education: 1: Trialed NMES and TENs on wrist extensors, shifting leads prior to finalization of location to elicit desired wrist and digit extension response. Completed without object for first trials of TENS with focus on brief finger flx for fist on rest period, then working to extend digits with TENS on, working with stim to increase ext range. Shifted to NMES following this to facilitate longer off cycles with Pt gripping yellow and green thera sponge during off cycle, then visualizing and working to release during on. Observed increased active digital ext post intervention with edu and training to watch release vs closing eyes to visualize to allow for visual and proprioceptive engagement to increase neuroplasticity. Trialed same grasp and release task with sponge with arm supported on w/c armrest with training to grasp when hand was supported on armrest, then extend elbow only to point that wrist hangs off to facilitate tenodesis to aid on object release, pulling object out of hand vs prying fingers open. Pt stated understanding and was motivated by performance this visit. Skilled Intervention: Skilled judgment used to assess appropriate program for balance and coordination activity. Patient education as noted. Billing Neuromuscular Re-Education Treatment Minutes: 45 Skilled Treatment Time Minutes (timed and untimed codes): 45 Total Session Time (minutes): 45 Session Start Time : 1350 Session Stop Time : 1435 RHYS [place] documented in this encounter [facility] 09-20-2024 Note HNO ID: [id number] Author: CRYSTAL DAI PT Service: ? Author Type: Physical Therapist Type: Progress Notes Filed: 09/20/2024 13:51 Note Text: Episode Visit Count: 18 Therapist That Will Accept/Oversee The Plan Of Care: Crystal Dai Start of Care Date: 06/19/24 Onset Date: (approx 10/20/2023) Plan of Care Certification Date: 09/18/24 Next Certification Due Date: 11/18/24 Patient Identified by Name and Date of : Yes REHABILITATION AND SPORTS THERAPY PHYSICAL THERAPY TREATMENT NOTE ASSESSMENT: Cabrera Sotelo tolerated the session with no issues. He demonstrated difficulty with resuming WB exers. The patient will continue to benefit from ongoing skilled physical therapy to progress toward set goals. PLAN FOR NEXT VISIT: SUBJECTIVE: Pt. states that his ankle is feeling better, but not good enough to do standing exercises or walking today; he asks for information for certified orthotist practice manager consult; he states that the manual therapy/modalities didn't really help with the pain last session so he defers this today and is agreeable to sitting/laying exercises Pain: Pain Pain Level: 3 Pain Location: Ankle - Right OBJECTIVE MEASURES WITH LEVEL OF FUNCTION: TREATMENT: Therapeutic Exercise: 4: rev. curl holds 10 sec. x3 5: SL hip abduction active assisted 3x10 (cues to keep thigh aligned with trunk) 6: seated LAQ 3x10 with cues for proper breathing technique 7: heel slides with reduced friction on sliding board; PT resistence offered based on muscle effort available at each rep 2x15 8: hip ABD vs. green TB with bilateral task to maximize R hip Abductor carry over 9: bridges with edu on breathing technique and ecentric control 3x10 10: resisted hip flexion in hooklying 2x15 Skilled Intervention: Correct performance of therapeutic exercises was facilitated with verbal and tactile cuing. Billing Therapeutic Exercise Treatment Minutes: 38 Skilled Treatment Time Minutes (timed and untimed codes): 38 Total Session Time (minutes): 45 Session Start Time : 1300 Session Stop Time : 1345 Crystal Dai PT [facility] 09-20-2024 History of Present illness Narrative Episode Visit Count: 18 Therapist That Will Accept/Oversee The Plan Of Care: Crystal Dai Start of Care Date: 06/19/24 Onset Date: (approx 10/20/2023) Plan of Care Certification Date: 09/18/24 Next Certification Due Date: 11/18/24 Patient Identified by Name and Date of : Yes REHABILITATION AND SPORTS THERAPY PHYSICAL THERAPY TREATMENT NOTE ASSESSMENT: Cabrera Sotelo tolerated the session with no issues. He demonstrated difficulty with resuming WB exers. The patient will continue to benefit from ongoing skilled physical therapy to progress toward set goals. PLAN FOR NEXT VISIT: SUBJECTIVE: Pt. states that his ankle is feeling better, but not good enough to do standing exercises or walking today; he asks for information for certified orthotist practice manager consult; he states that the manual therapy/modalities didn't really help with the pain last session so he defers this today and is agreeable to sitting/laying exercises Pain: Pain Pain Level: 3 Pain Location: Ankle - Right OBJECTIVE MEASURES WITH LEVEL OF FUNCTION: TREATMENT: Therapeutic Exercise: 4: rev. curl holds 10 sec. x3 5: SL hip abduction active assisted 3x10 (cues to keep thigh aligned with trunk) 6: seated LAQ 3x10 with cues for proper breathing technique 7: heel slides with reduced friction on sliding board; PT resistence offered based on muscle effort available at each rep 2x15 8: hip ABD vs. green TB with bilateral task to maximize R hip Abductor carry over 9: bridges with edu on breathing technique and ecentric control 3x10 10: resisted hip flexion in hooklying 2x15 Skilled Intervention: Correct performance of therapeutic exercises was facilitated with verbal and tactile cuing. Billing Therapeutic Exercise Treatment Minutes: 38 Skilled Treatment Time Minutes (timed and untimed codes): 38 Total Session Time (minutes): 45 Session Start Time : 1300 Session Stop Time : 1345 Crystal Dai PT documented in this encounter [facility] 09-18-2024 Note HNO ID: [id number] Author: CRYSTAL DAI PT Service: ? Author Type: Physical Therapist Type: Progress Notes Filed: 09/18/2024 14:58 Note Text: Episode Visit Count: 17 Therapist That Will Accept/Oversee The Plan Of Care: Crystal Dai Start of Care Date: 06/19/24 Onset Date: (approx 10/20/2023) Plan of Care Certification Date: 09/18/24 Next Certification Due Date: 11/18/24 Patient Identified by Name and Date of : Yes REHABILITATION AND SPORTS THERAPY PHYSICAL THERAPY RE-EVALUATION PLAN OF CARE UPDATE: Assessment: Cabrera Sotelo demonstrates R ankle pain and edema after a fall on 09/16/24. The patient has new goals added to address ankle needs . Patient continues to present with impairments in balance, edema management, flexibility, independence in exercise, overall function, strength, symptom management, and tissue tenderness that interfere with weightbearing tolerance and he has returned to utilizing his AFO which he is securing with gorilla tape stating that a replacement is not financially available at the moment . Current prognosis is Good due to: (minimal joint line swelling) . The patient will benefit from continued skilled therapy services to meet the updated goals for this plan of care as noted below. 06/20/25 - 09/07/24 - Signed 09/18 - 11/18 - SENT Goals for Episode of Care: established 06/19/24 Patient will increase strength of LE +1/2 m. grade to allow patient to improved ease of bed mobility; push through to gait speed - progressing 08/30 Patient will ambulate 400 feet with LBQC Left with stand by assist on level ground. - 90 feet in 2 mins Patient will demonstrate current home exercise program independently. - building 08/30 Patient will improve distance on 2 minute walk test by 40 feet (=98) to increase endurance for household and community ambulation. - progressing 08/30 Patient Goals: walk without a cane; ultimately he would like to return to riding his 3 lau; wants to rebuild a motorcycle that's been put on hold (states that he realizes it wouldn't be safe to drive with visual changes and reaction times) Ankle - added on 09/18/24 Pain: return to 0-1/10 to allow for return to WB exers Girth: reduce 1-1.5 cm Planned Interventions, Frequency, and Duration: (2), (til 11/18) Total Number of Visits Planned: (16) Patient to be seen for Therapeutic exercise (26366), Neuromuscular re-education (02254), Manual therapy (91485), Therapeutic activities (68619), Self-fdc management (99227), Gait Training (49239), Patient/Family/Caregiver Education, Body Mechanics Training, Functional training, General Conditioning, E-Stim Attended/TENS (13158), Vasopneumatic Treatment (48710) (could trial NMES) PLAN FOR NEXT VISIT: address R ankle pain with passive treatment and pull PT when pain reduces to assess for anterior ligamentous stability; NWB LE and core exers are expected as tolerable and ok to continue;HOLD THE FOLLOWING PLAN until R ankle pain reduces: high intensity gait training; balance training, LE strength/joint stabilizing program; PUSH HEP COMPLIANCE for gait with partner; continue increasing LE strength to work towards safe floor transfers. SUBJECTIVE: Pt. states that he had a fall in his barn on 09/16/24; he was walking with his walker assisting his son with tools while he repaired a car when he got tripped up on an air hose causing him to fall onto a deep dorsiflexion stretch (My ankle hasn't moved that way in a long time) and onto L outstretched arm; he needed his son's assistance up from the floor; he's wearing his AFO as a precaution today and doesn't know how much he could tolerate walk today. Pain: Pain Pain Level: 5 Post Treatment Pain Post Treatment Pain Level: Better PROMIS Scales 07/26/2024 07/10/2024 06/28/2024 Higher is Better Phys Func - T Score 30 (moderate dysfunction) Phys Func - Percentile 2 Self-Eff Symptom - T Score 41 (Average) 43 (Average) Self-Eff Symptom - Percentile 18 24 Mobility - T Score 37 (moderate dysfunction) 28 (severe dysfunction) Mobility - Percentile 10 1 Upper Extremity - T Score 27 (severe dysfunction) 26 (severe dysfunction) Upper Extremity - Percentile 1 1 Proxy-reported T-scores: mean of general population = 50. 5 points is clinically meaningfully difference Percentiles provide an indication of how the patient's score ranks in relation to the general population. Higher percentile rankings indicate better function/quality of life. 50th percentile is the average of the general population and indicates half of respondents had a worse score. OBJECTIVE MEASURES WITH LEVEL OF FUNCTION: Ankle Observations R Ankle Presents with: Swelling (26.2 cm ( bubmalleolar)) L Ankle Presents with: (24.0 cm (submalleolar)) R Ankle Palpation Tenderness: (anterior talocrural joint line, ligamentous structure at sub medial malleolus) Special Tests - Ankle Ankle Special Tests: (would assess (more content not included)... [facility] 09-18-2024 History of Present illness Narrative Images from the original note were not included. Episode Visit Count: 17 Therapist That Will Accept/Oversee The Plan Of Care: Crystal Dai Start of Care Date: 06/19/24 Onset Date: (approx 10/20/2023) Plan of Care Certification Date: 09/18/24 Next Certification Due Date: 11/18/24 Patient Identified by Name and Date of : Yes REHABILITATION AND SPORTS THERAPY PHYSICAL THERAPY RE-EVALUATION PLAN OF CARE UPDATE: Assessment: Cabrera Tod Sotelo demonstrates R ankle pain and edema after a fall on 09/16/24. The patient has new goals added to address ankle needs . Patient continues to present with impairments in balance, edema management, flexibility, independence in exercise, overall function, strength, symptom management, and tissue tenderness that interfere with weightbearing tolerance and he has returned to utilizing his AFO which he is securing with gorilla tape stating that a replacement is not financially available at the moment . Current prognosis is Good due to: (minimal joint line swelling) . The patient will benefit from continued skilled therapy services to meet the updated goals for this plan of care as noted below. 06/20/25 - 09/07/24 - Signed 09/18 - 11/18 - SENT Goals for Episode of Care: established 06/19/24 Patient will increase strength of LE +1/2 m. grade to allow patient to improved ease of bed mobility; push through to gait speed - progressing 08/30 Patient will ambulate 400 feet with LBQC Left with stand by assist on level ground. - 90 feet in 2 mins Patient will demonstrate current home exercise program independently. - building 08/30 Patient will improve distance on 2 minute walk test by 40 feet (=98) to increase endurance for household and community ambulation. - progressing 08/30 Patient Goals: walk without a cane; ultimately he would like to return to riding his 3 lau; wants to rebuild a motorcycle that's been put on hold (states that he realizes it wouldn't be safe to drive with visual changes and reaction times) Ankle - added on 09/18/24 Pain: return to 0-1/10 to allow for return to WB exers Girth: reduce 1-1.5 cm Planned Interventions, Frequency, and Duration: (2), (til 11/18) Total Number of Visits Planned: (16) Patient to be seen for Therapeutic exercise (09207), Neuromuscular re-education (56752), Manual therapy (35668), Therapeutic activities (72702), Self-fdc management (17821), Gait Training (23989), Patient/Family/Caregiver Education, Body Mechanics Training, Functional training, General Conditioning, E-Stim Attended/TENS (86283), Vasopneumatic Treatment (15566) (could trial NMES) PLAN FOR NEXT VISIT: address R ankle pain with passive treatment and pull PT when pain reduces to assess for anterior ligamentous stability; NWB LE and core exers are expected as tolerable and ok to continue;HOLD THE FOLLOWING PLAN until R ankle pain reduces: high intensity gait training; balance training, LE strength/joint stabilizing program; PUSH HEP COMPLIANCE for gait with partner; continue increasing LE strength to work towards safe floor transfers. SUBJECTIVE: Pt. states that he had a fall in his barn on 09/16/24; he was walking with his walker assisting his son with tools while he repaired a car when he got tripped up on an air hose causing him to fall onto a deep dorsiflexion stretch (My ankle hasn't moved that way in a long time) and onto L outstretched arm; he needed his son's assistance up from the floor; he's wearing his AFO as a precaution today and doesn't know how much he could tolerate walk today. Pain: Pain Pain Level: 5 Post Treatment Pain Post Treatment Pain Level: Better PROMIS Scales 07/26/2024 07/10/2024 06/28/2024 Higher is Better Phys Func - T Score 30 (moderate dysfunction) Phys Func - Percentile 2 Self-Eff Symptom - T Score 41 (Average) 43 (Average) Self-Eff Symptom - Percentile 18 24 Mobility - T Score 37 (moderate dysfunction) 28 (severe dysfunction) Mobility - Percentile 10 1 Upper Extremity - T Score 27 (severe dysfunction) 26 (severe dysfunction) Upper Extremity - Percentile 1 1 Proxy-reported T-scores: mean of general population = 50. 5 points is clinically meaningfully difference Percentiles provide an indication of how the patient's score ranks in relation to the general population. Higher percentile rankings indicate better function/quality of life. 50th percentile is the average of the general population and indicates half of respondents had a worse score. OBJECTIVE MEASURES WITH LEVEL OF FUNCTION: Ankle Observations R Ankle Presents with: Swelling (26.2 cm ( bubmalleolar)) L Ankle Presents with: (24.0 cm (submalleolar)) R Ankle Palpation Tenderness: (anterior talocrural joint line, ligamentous structure at sub medial malleolus) Special Tests - Ankle Ankle Special Tests: (would assess ligamentous stability at a later time, once pain reduced) TREATMENT: Therapeutic Activity: 1: discussed safety strategies for mobility to barn from house (side by side), transfer/ambulation (on concrete with walker), and mobility through shop (wheeled chair) for future fall prevention while he maintains hobbies with family for quality of life maximization Skilled Intervention: Ensured patient safety with education/problem solving Re-evaluation: Performed due to the following change of patient status: fall Manual Therapy: 1: STM anterior talocrural joint line clearing; cross friction massage to ligamentous structures below medial malleolus, anterior tib/gastroc release Skilled Intervention: Manual skills to improve joint mobility, ROM, and decrease pain. Utilized anatomy knowledge of the therapist, and assessment of patient's response to intervention. Modalities: Vasopneumatic Treatment Body Region Treated - Vasopneumatic Treatment: R ankle Patient Position: supine elevation Compression mmHg: min Cycle: 46 deg. with m onitoring of perfusion during treatment Minutes: 8 Skilled Intervention: Proper administration and selection of modality based on clinical presentation, deficits, and needs. Patient response monitored throughout treatment. Billing * Re-Evaluation : 1 Unit Manual TherapyTreatment Minutes: 25 * Vasopneumatic Treatment: 1 unit Skilled Treatment Time Minutes (timed and untimed codes): 45 Total Session Time (minutes): 45 Session Start Time : 1300 Session Stop Time : 1345 Crystal Dai PT documented in this encounter [facility] 09-18-2024 Note HNO ID: [id number] Author: YANNA VANCE OTA/L Service: ? Author Type: Dairy Management Specialist Type: Progress Notes Filed: 09/18/2024 14:32 Note Text: Episode Visit Count: 23 Therapist That Will Accept/Oversee The Plan Of Care: Rivka Irvinkerman OTR/L Start of Care Date: 05/24/24 Onset Date: 11/16/23 Plan of Care Certification Date: 08/14/24 Next Certification Due Date: 10/09/24 Patient Identified by Name and Date of : Yes REHABILITATION AND SPORTS THERAPY OCCUPATIONAL THERAPY TREATMENT NOTE ASSESSMENT: Cabrera Sotelo tolerated the session with expected fx performance. He demonstrated difficulty with finger extension and RUE use and improvements in RUE shoulder extension. The patient will continue to benefit from ongoing skilled occupational therapy to progress toward set goals. PLAN FOR NEXT VISIT: e stim for extension, proprioception to BUE, FMC SUBJECTIVE: Pt reports that if he manages to get his R hand around something he can't get them back off. Pain: Pain Pain Level: 0 OBJECTIVE MEASURES WITH LEVEL OF FUNCTION: TREATMENT: Therapeutic Exercise: 1: use of NuStep on BUE for increased proprioception through RUE for sensatin and ROM. Skilled Intervention: Patient was educated in proper exercise technique and purpose for exercises. Neuromuscular Re-Education: 1: CABAN implemented weight bearing through BUE with CABAN providing stabilization of RUE for increased proprioception for sensation and ROM in RUE and hand to increase fx use 2: Pt instructed in use of thera putty green for hospital wellness coordinator and extension to provide increased sensory input to R hand for increased sensation and ROM for fx use. Skilled Intervention: Skilled judgment used to assess appropriate program for balance and coordination activity. Billing Therapeutic Exercise Treatment Minutes: 10 Neuromuscular Re-Education Treatment Minutes: 35 Total Session Time (minutes): 45 Session Start Time : 1345 Session Stop Time : 1430 CUCA Shah/[place] [facility] 09-18-2024 History of Present illness Narrative Episode Visit Count: 23 Therapist That Will Accept/Oversee The Plan Of Care: Rivka Bolivar OTR/L Start of Care Date: 05/24/24 Onset Date: 11/16/23 Plan of Care Certification Date: 08/14/24 Next Certification Due Date: 10/09/24 Patient Identified by Name and Date of : Yes REHABILITATION AND SPORTS THERAPY OCCUPATIONAL THERAPY TREATMENT NOTE ASSESSMENT: Cabrera Sotelo tolerated the session with expected fx performance. He demonstrated difficulty with finger extension and RUE use and improvements in RUE shoulder extension. The patient will continue to benefit from ongoing skilled occupational therapy to progress toward set goals. PLAN FOR NEXT VISIT: e stim for extension, proprioception to BUE, FMC SUBJECTIVE: Pt reports that if he manages to get his R hand around something he can't get them back off. Pain: Pain Pain Level: 0 OBJECTIVE MEASURES WITH LEVEL OF FUNCTION: TREATMENT: Therapeutic Exercise: 1: use of NuStep on BUE for increased proprioception through RUE for sensatin and ROM. Skilled Intervention: Patient was educated in proper exercise technique and purpose for exercises. Neuromuscular Re-Education: 1: CABAN implemented weight bearing through BUE with CABAN providing stabilization of RUE for increased proprioception for sensation and ROM in RUE and hand to increase fx use 2: Pt instructed in use of thera putty green for hospital wellness coordinator and extension to provide increased sensory input to R hand for increased sensation and ROM for fx use. Skilled Intervention: Skilled judgment used to assess appropriate program for balance and coordination activity. Billing Therapeutic Exercise Treatment Minutes: 10 Neuromuscular Re-Education Treatment Minutes: 35 Total Session Time (minutes): 45 Session Start Time : 1345 Session Stop Time : 1430 MARYLU Shah documented in this encounter [facility] 09-13-2024 Note HNO ID: [id number] Author: MIKEY HAIR PTA Service: ? Author Type: Bookbinder Apprentice Type: Progress Notes Filed: 09/13/2024 16:44 Note Text: Episode Visit Count: 16 Therapist That Will Accept/Oversee The Plan Of Care: Crystal Dai Start of Care Date: 06/19/24 Onset Date: (approx 10/20/2023) Plan of Care Certification Date: 09/18/24 Next Certification Due Date: 11/18/24 Patient Identified by Name and Date of : Yes REHABILITATION AND SPORTS THERAPY PHYSICAL THERAPY TREATMENT NOTE ASSESSMENT: Cabrera Sotelo tolerated the session with fatigue and expected muscle soreness. He demonstrated difficulty with sit to stands and gait in the clinic as he does get off sequence occasionally. He is able to self correct with the use of his cane and Min A from WINDOW REPAIRER. Minor cues to slow down when walking in clinic with good response form pt. The patient will continue to benefit from ongoing skilled physical therapy to progress toward set goals. PLAN FOR NEXT VISIT: high intensity gait training; balance training, LE strength/joint stabilizing program; PUSH HEP COMPLIANCE for gait with partner; continue increasing LE strength to work towards safe floor transfers. SUBJECTIVE: Pt states that he is doing better and has made many imporvements since starting therapy. Pain: Pain Pain Level: 0 Post Treatment Pain Post Treatment Pain Level: No Change OBJECTIVE MEASURES WITH LEVEL OF FUNCTION: TREATMENT: Therapeutic Exercise: 1: Sci-fit lvl 3 hills x8 mins for increased endurance AND LE strength 2: Seated unsupported B LAQ 3# 10x2 *5 hold) 3: STS 10x2 4: Standing marches 10x2 5: seated UE press outs- hands together x10 Skilled Intervention: Patient was educated in proper exercise technique and purpose for exercises. Skilled judgment was used in selection of appropriate interventions. Gait Trainin: w/ QC SBA/CGA - 2 laps around clinic (210ft)- rest between laps Skilled Intervention: Patient was provided contact guard assistance, stand by assist during pre-gait/gait training to prevent falls and insure safety. Gait belt utilized during session for safety. Billing Therapeutic Exercise Treatment Minutes: 33 Gait Training Treatment Minutes: 8 Skilled Treatment Time Minutes (timed and untimed codes): 41 Total Session Time (minutes): 41 Session Start Time : 1434 Session Stop Time : 1515 Mikey Hair PTA [facility] 09-13-2024 History of Present illness Narrative Episode Visit Count: 16 Therapist That Will Accept/Oversee The Plan Of Care: Crystal Dai Start of Care Date: 06/19/24 Onset Date: (approx 10/20/2023) Plan of Care Certification Date: 09/18/24 Next Certification Due Date: 11/18/24 Patient Identified by Name and Date of : Yes REHABILITATION AND SPORTS THERAPY PHYSICAL THERAPY TREATMENT NOTE ASSESSMENT: Cabrera Sotelo tolerated the session with fatigue and expected muscle soreness. He demonstrated difficulty with sit to stands and gait in the clinic as he does get off sequence occasionally. He is able to self correct with the use of his cane and Min A from WINDOW REPAIRER. Minor cues to slow down when walking in clinic with good response form pt. The patient will continue to benefit from ongoing skilled physical therapy to progress toward set goals. PLAN FOR NEXT VISIT: high intensity gait training; balance training, LE strength/joint stabilizing program; PUSH HEP COMPLIANCE for gait with partner; continue increasing LE strength to work towards safe floor transfers. SUBJECTIVE: Pt states that he is doing better and has made many imporvements since starting therapy. Pain: Pain Pain Level: 0 Post Treatment Pain Post Treatment Pain Level: No Change OBJECTIVE MEASURES WITH LEVEL OF FUNCTION: TREATMENT: Therapeutic Exercise: 1: Sci-fit lvl 3 hills x8 mins for increased endurance & LE strength 2: Seated unsupported B LAQ 3# 10x2 *5 hold) 3: STS 10x2 4: Standing marches 10x2 5: seated UE press outs- hands together x10 Skilled Intervention: Patient was educated in proper exercise technique and purpose for exercises. Skilled judgment was used in selection of appropriate interventions. Gait Trainin: w/ QC SBA/CGA - 2 laps around clinic (210ft)- rest between laps Skilled Intervention: Patient was provided contact guard assistance, stand by assist during pre-gait/gait training to prevent falls and insure safety. Gait belt utilized during session for safety. Billing Therapeutic Exercise Treatment Minutes: 33 Gait Training Treatment Minutes: 8 Skilled Treatment Time Minutes (timed and untimed codes): 41 Total Session Time (minutes): 41 Session Start Time : 1434 Session Stop Time : 1515 Mikey Hair PTA documented in this encounter [facility] 09-13-2024 History of Present illness Narrative Program_ID:[id number] Access Code: [email or web address] URL: [email or web address] Date: 09-13-2024 Prepared By: CRYSTAL DAI Program Notes Exercises - Seated March - x daily - 7 x weekly - 3 sets - 5-8 reps - Forward and Backward Stepping at Pool Wall - x daily - 7 x weekly - sets - reps - Sitting Knee Extension with Resistance - 1 x daily - 7 x weekly - 2 sets - 10 reps - Seated Long Arc Quad - 1 x daily - 7 x weekly - 2 sets - 10 reps - Supine Quad Set - 1 x daily - 7 x weekly - 2 sets - 10 reps - Standing Terminal Knee Extension with Resistance - 1 x daily - 7 x weekly - 2 sets - 10 reps - Marching with Resistance - 1 x daily - 7 x weekly - 2 sets - 10 reps - Side to Side Weight Shift with Counter Support - 1 x daily - 7 x weekly - 2 sets - 10 reps - Standing UE Activity: Weight-Bearing With Extended Elbows, Open Hand - 1 x daily - 7 x weekly - 3 sets - 10 reps - Forearm Supination with Resistance - 1 x daily - 7 x weekly - 3 sets - 10 reps - Hand Towel Scrunching - 1 x daily - 7 x weekly - 3 sets - 10 reps - Towel Roll Squeeze - 1 x daily - 7 x weekly - 3 sets - 10 reps - Seated Isometric Elbow Flexion - 1 x daily - 7 x weekly - 3 sets - 10 reps - Seated Elbow Flexion with Resistance - 1 x daily - 7 x weekly - 3 sets - 10 reps - Forearm Supination with Resistance Bar - 1 x daily - 7 x weekly - 3 sets - 10 reps - Forearm Pronation with Resistance Bar - 1 x daily - 7 x weekly - 3 sets - 10 reps - Forearm Supination with Resistance Bar - 1 x daily - 7 x weekly - 3 sets - 10 reps - Forearm Pronation with Resistance Bar - 1 x daily - 7 x weekly - 3 sets - 10 reps - Wrist Flexion with Resistance Bar - 1 x daily - 7 x weekly - 3 sets - 10 reps - Wrist Flexion with Resistance Bar - 1 x daily - 7 x weekly - 3 sets - 10 reps Patient Education - Adaptive Equipment for Eating - Using a [place] Cuff Episode Visit Count: 22 Therapist That Will Accept/Oversee The Plan Of Care: Rivka TOTH/Benton Start of Care Date: 05/24/24 Onset Date: 11/16/23 Plan of Care Certification Date: 08/14/24 Next Certification Due Date: 10/09/24 Patient Identified by Name and Date of : Yes REHABILITATION AND SPORTS THERAPY OCCUPATIONAL THERAPY TREATMENT NOTE ASSESSMENT: Cabrera Sotelo tolerated the session with expected muscle soreness. He demonstrated difficulty with strength and improvements in increased wrist RANGE OF MOTION and grasp . The patient will continue to benefit from ongoing skilled occupational therapy to progress toward set goals. PLAN FOR NEXT VISIT: NMES for bicep contraction while on bike for muscle and neuro retraining; wt bearing through RUE as tolerated with close monitoring of R shoulder SUBJECTIVE: Pt stated that he has been frustrated for some time , however after some reflection , he stated that his fistmaking has improved . He is bathing himself and feels motivated to ditch this thing referring to wheelchair Pain: Pain Pain Level: 0 OBJECTIVE MEASURES WITH LEVEL OF FUNCTION: No measurements taken TREATMENT: Therapeutic Exercise: 1: PROM for finger flexion/extension and hyperextension, wrist flexion/extension, radial/ulnar deviation, supination/pronation, elbow flexion/extension for increased ROM and for sensation of movement for increased participation in fx tasks. 2: Hand Towel Scrunching - 1 x daily - 7 x weekly - 3 sets - 10 reps - Towel Roll Squeeze - 1 x daily - 7 x weekly - 3 sets - 10 reps - 3: - Seated Isometric Elbow Flexion - 1 x daily - 7 x weekly - 3 sets - 10 reps - ff 4: - Seated Isometric Elbow Flexion - 1 x daily - 7 x weekly - 3 sets - 10 reps - ff 5: - Forearm Supination with Resistance Bar - 1 x daily - 7 x weekly - 3 sets - 10 reps - 6: - Forearm Pronation with Resistance Bar - 1 x daily - 7 x weekly - 3 sets - 10 reps - Skilled Intervention: Patient was educated in proper exercise technique and purpose for exercises. Provided written instruction for home exercise program to facilitate proper performance and compliance. Correct performance of therapeutic exercises was facilitated with verbal and visual cuing. Billing Therapeutic Exercise Treatment Minutes: 45 Total Session Time (minutes): 45 Session Start Time : 1345 Session Stop Time : 1430 MARYLU Barcenas documented in this encounter [facility] 09-13-2024 Note HNO ID: [id number] Author: YANNA DURANT OTA/L Service: ? Author Type: Dairy Management Specialist Type: Progress Notes Filed: 09/13/2024 15:54 Note Text: Episode Visit Count: 22 Therapist That Will Accept/Oversee The Plan Of Care: Rivka Naranjo OTR/L Start of Care Date: 05/24/24 Onset Date: 11/16/23 Plan of Care Certification Date: 08/14/24 Next Certification Due Date: 10/09/24 Patient Identified by Name and Date of : Yes REHABILITATION AND SPORTS THERAPY OCCUPATIONAL THERAPY TREATMENT NOTE ASSESSMENT: Cabrera Sotelo tolerated the session with expected muscle soreness. He demonstrated difficulty with strength and improvements in increased wrist RANGE OF MOTION and grasp . The patient will continue to benefit from ongoing skilled occupational therapy to progress toward set goals. PLAN FOR NEXT VISIT: NMES for bicep contraction while on bike for muscle and neuro retraining; wt bearing through RUE as tolerated with close monitoring of R shoulder SUBJECTIVE: Pt stated that he has been frustrated for some time , however after some reflection , he stated that his fistmaking has improved . He is bathing himself and feels motivated to ditch this thing referring to wheelchair Pain: Pain Pain Level: 0 OBJECTIVE MEASURES WITH LEVEL OF FUNCTION: No measurements taken TREATMENT: Therapeutic Exercise: 1: PROM for finger flexion/extension and hyperextension, wrist flexion/extension, radial/ulnar deviation, supination/pronation, elbow flexion/extension for increased ROM and for sensation of movement for increased participation in fx tasks. 2: Hand Towel Scrunching - 1 x daily - 7 x weekly - 3 sets - 10 reps - Towel Roll Squeeze - 1 x daily - 7 x weekly - 3 sets - 10 reps - 3: - Seated Isometric Elbow Flexion - 1 x daily - 7 x weekly - 3 sets - 10 reps - ff 4: - Seated Isometric Elbow Flexion - 1 x daily - 7 x weekly - 3 sets - 10 reps - ff 5: - Forearm Supination with Resistance Bar - 1 x daily - 7 x weekly - 3 sets - 10 reps - 6: - Forearm Pronation with Resistance Bar - 1 x daily - 7 x weekly - 3 sets - 10 reps - Skilled Intervention: Patient was educated in proper exercise technique and purpose for exercises. Provided written instruction for home exercise program to facilitate proper performance and compliance. Correct performance of therapeutic exercises was facilitated with verbal and visual cuing. Billing Therapeutic Exercise Treatment Minutes: 45 Total Session Time (minutes): 45 Session Start Time : 1345 Session Stop Time : 1430 MARYLU Barcenas [facility] 09-11-2024 Note HNO ID: [id number] Author: KAYLYN PALM PTA Service: ? Author Type: Bookbinder Apprentice Type: Progress Notes Filed: 09/11/2024 15:39 Note Text: Episode Visit Count: 15 Therapist That Will Accept/Oversee The Plan Of Care: Crystal Dai Start of Care Date: 06/19/24 Onset Date: (approx 10/20/2023) Plan of Care Certification Date: 09/18/24 Next Certification Due Date: 11/18/24 Patient Identified by Name and Date of : Yes REHABILITATION AND SPORTS THERAPY PHYSICAL THERAPY TREATMENT NOTE ASSESSMENT: Cabrera Sotelo tolerated the session with fatigue and expected muscle soreness. He demonstrated difficulty with standing marches, but demonstrated determination to complete the instructed number of repetitions and sets. The hand hospital wellness coordinator strap (listed below) was able to improve patient's ability to hospital wellness coordinator onto exercise machine. The patient will continue to benefit from ongoing skilled physical therapy to progress toward set goals. PLAN FOR NEXT VISIT: high intensity gait training; balance training, LE strength/joint stabilizing program; PUSH HEP COMPLIANCE for gait with partner; continue increasing LE strength to work towards safe floor transfers. SUBJECTIVE: Patient states he can get down on his left knee but his right knee won't do anything. But he also does report he feels he is getting better because of therapy. Pain: Pain Pain Level: 0 Post Treatment Pain Post Treatment Pain Level: No Change OBJECTIVE MEASURES WITH LEVEL OF FUNCTION: TREATMENT: Therapeutic Exercise: 1: Sci-fit lvl 2 hills x5 mins for increased endurance AND LE strength (donned arm hospital wellness coordinator strap that patient brought in.) 2: Seated unsupported B LAQ 3# 10x2 *5 hold) 3: STS 10x2 4: Standing marches 10x2 (w/B UE support) Skilled Intervention: Patient was educated in proper exercise technique and purpose for exercises. Skilled judgment was used in selection of appropriate interventions. Gait Trainin: 159 ft w/QC (SBA) Skilled Intervention: Patient was provided stand by assist during pre-gait/gait training to prevent falls and insure safety. Gait belt utilized during session for safety. Billing Therapeutic Exercise Treatment Minutes: 35 Gait Training Treatment Minutes: 5 Skilled Treatment Time Minutes (timed and untimed codes): 40 Total Session Time (minutes): 40 Session Start Time : 1432 Session Stop Time : 1511 Kaylyn Oliveros [facility] 09-11-2024 History of Present illness Narrative Episode Visit Count: 15 Therapist That Will Accept/Oversee The Plan Of Care: Crystal Dai Start of Care Date: 06/19/24 Onset Date: (approx 10/20/2023) Plan of Care Certification Date: 09/18/24 Next Certification Due Date: 11/18/24 Patient Identified by Name and Date of : Yes REHABILITATION AND SPORTS THERAPY PHYSICAL THERAPY TREATMENT NOTE ASSESSMENT: Cabrera Sotelo tolerated the session with fatigue and expected muscle soreness. He demonstrated difficulty with standing marches, but demonstrated determination to complete the instructed number of repetitions and sets. The hand hospital wellness coordinator strap (listed below) was able to improve patient's ability to hospital wellness coordinator onto exercise machine. The patient will continue to benefit from ongoing skilled physical therapy to progress toward set goals. PLAN FOR NEXT VISIT: high intensity gait training; balance training, LE strength/joint stabilizing program; PUSH HEP COMPLIANCE for gait with partner; continue increasing LE strength to work towards safe floor transfers. SUBJECTIVE: Patient states he can get down on his left knee but his right knee won't do anything. But he also does report he feels he is getting better because of therapy. Pain: Pain Pain Level: 0 Post Treatment Pain Post Treatment Pain Level: No Change OBJECTIVE MEASURES WITH LEVEL OF FUNCTION: TREATMENT: Therapeutic Exercise: 1: Sci-fit lvl 2 hills x5 mins for increased endurance & LE strength (donned arm hospital wellness coordinator strap that patient brought in.) 2: Seated unsupported B LAQ 3# 10x2 *5 hold) 3: STS 10x2 4: Standing marches 10x2 (w/B UE support) Skilled Intervention: Patient was educated in proper exercise technique and purpose for exercises. Skilled judgment was used in selection of appropriate interventions. Gait Trainin: 159 ft w/QC (SBA) Skilled Intervention: Patient was provided stand by assist during pre-gait/gait training to prevent falls and insure safety. Gait belt utilized during session for safety. Billing Therapeutic Exercise Treatment Minutes: 35 Gait Training Treatment Minutes: 5 Skilled Treatment Time Minutes (timed and untimed codes): 40 Total Session Time (minutes): 40 Session Start Time : 1431 Session Stop Time : 1511 Kaylyn Oliveros PTA documented in this encounter [facility] 09-11-2024 Note HNO ID: [id number] Author: RIVKA NARANJO OTR/Benton Service: ? Author Type: Occupational Therapist Type: Progress Notes Filed: 09/11/2024 14:51 Note Text: Episode Visit Count: 21 Therapist That Will Accept/Oversee The Plan Of Care: Rivka Naranjo OTR/L Start of Care Date: 05/24/24 Onset Date: 11/16/23 Plan of Care Certification Date: 08/14/24 Next Certification Due Date: 10/09/24 Patient Identified by Name and Date of : Yes REHABILITATION AND SPORTS THERAPY OCCUPATIONAL THERAPY PROGRESS REPORT PLAN OF CARE UPDATE: Assessment: Cabrera Kearnss demonstrates improvements in walking in the house, walking in the community, physical activities, recreational activities, cleaning, cooking, dressing, gripping, and pinching. The patient has progressed toward goals. Patient continues to present with impairments in ADL's, balance, coordination, overall function, patient reported outcome measures, range of motion, sensation, strength, and symptom management that interfere with ADLs and IADLs . Current prognosis is Fair due to: clinical presentation, multiple co- morbidities, chronic nature of impairments, Prognosis may be improved by within-session changes, good support system/ coping skills. The patient will benefit from continued skilled therapy services to meet the updated goals for this plan of care as noted below. PLAN FOR NEXT VISIT: NMES for bicep contraction while on bike for muscle and neuro retraining; wt bearing through RUE as tolerated with close monitoring of R shoulder LTGs = 12 weeks: 1.Patient will demo decreased UE stroke related symptoms as evidenced by decreasing QuickDash disability/symptom score to 30 or less. GOAL NOT PARTIALLY MET, decreased to 36.3 2. Patient will demo improved QOL as evidenced by increasing PSFS score to 7 or greater. 3.Patient will complete community mobility at LA level or greater to increase return to PLOF. GOAL NOT PARTIALLY MET, car transfers ok, 4Runner transfers are hardest STGs = 6 weeks: Patient will increase R hospital wellness coordinator strength to 20# or greater.GOAL NOT MET, no change 2. Patient will increase RUE AROM over all joints tested to 700 degrees over joints tested or greater. GOAL PARTIALLY MET, increased from 565 to 615 3.Patient and family will be IND with UB HEP. GOAL PARTIALLY MET, ongoing MET GOALS: 1.Patient will demo decreased UE stroke related symptoms as evidenced by decreasing QuickDash disability/symptom score to 75 or less. GOAL MET 06/19 with 45.4 2.Patient will increase RUE PROM over all joints tested by 100 degrees or greater. GOAL MET, increased by 140 degrees 2.Patient will demo improved QOL as evidenced by increasing PSFS score to 5 or greater. GOAL MET 07/17, increased from 1.83 to 5.3 2. Patient will increase RUE AROM over all joints tested by 100 degrees or greater. GOAL MET, increased by 115 1.Patient will increase R hospital wellness coordinator strength to 10# or greater. GOAL MET at 12# on 08/14 Time Frame for Goals and Treatment : 10/09/24 Planned Interventions, Frequency, and Duration: 2x/week, 4 weeks Total Number of Visits Planned: 8 Planned Treatment Interventions: Custom orthosis fabrication, Prefabricated orthosis fitting, Therapeutic exercise (56127), Therapeutic activities (23842), Manual therapy (29219), Neuromuscular re-education (96353), Self-fdc management (34556), Sensory Integration (38692), Physical performance test, Orthotics management and training (09483,36204), Patient/Family/Caregiver Education, Functional training, Community / Work Reintegration, Ultrasound (94550), E-Stim Attended/TENS (46841), Fluidotherapy (14924) PLAN FOR NEXT VISIT: NMES for bicep contraction while on bike for muscle and neuro retraining; wt bearing through RUE as tolerated with close monitoring of R shoulder SUBJECTIVE: Completed progress report this date. Pt reported he would like to do one more month of OT then d/c as he is feeling discouraged over arm. Spouse disagrees with decision. Pain: Pain Pain Level: 0 Post Treatment Pain Post Treatment Pain Level: 0 PROMIS Scales 07/26/2024 07/10/2024 06/28/2024 Higher is Better Phys Func - T Score 30 (moderate dysfunction) Phys Func - Percentile 2 Self-Eff Symptom - T Score 41 (Average) 43 (Average) Self-Eff Symptom - Percentile 18 24 Mobility - T Score 37 (moderate dysfunction) 28 (severe dysfunction) Mobility - Percentile 10 1 Upper Extremity - T Score 27 (severe dysfunction) 26 (severe dysfunction) Upper Extremity - Percentile 1 1 Proxy-reported T-scores: mean of general population = 50. 5 points is clinically meaningfully difference Percentiles provide an indication of how the patient's score ranks in relation to the general population. Higher percentile rankings indicate better function/quality of life. 50th percentile is the average of the general population and indicates half of respondents had a worse score. OBJECTIVE MEASURES WITH LEVEL (more content not included)... [facility] 09-11-2024 History of Present illness Narrative Images from the original note were not included. Episode Visit Count: 21 Therapist That Will Accept/Oversee The Plan Of Care: Rivka TOTH/Benton Start of Care Date: 05/24/24 Onset Date: 11/16/23 Plan of Care Certification Date: 08/14/24 Next Certification Due Date: 10/09/24 Patient Identified by Name and Date of : Yes REHABILITATION AND SPORTS THERAPY OCCUPATIONAL THERAPY PROGRESS REPORT PLAN OF CARE UPDATE: Assessment: Cabrera Kearnss demonstrates improvements in walking in the house, walking in the community, physical activities, recreational activities, cleaning, cooking, dressing, gripping, and pinching. The patient has progressed toward goals. Patient continues to present with impairments in ADL's, balance, coordination, overall function, patient reported outcome measures, range of motion, sensation, strength, and symptom management that interfere with ADLs and IADLs . Current prognosis is Fair due to: clinical presentation, multiple co- morbidities, chronic nature of impairments, Prognosis may be improved by within-session changes, good support system/ coping skills. The patient will benefit from continued skilled therapy services to meet the updated goals for this plan of care as noted below. PLAN FOR NEXT VISIT: NMES for bicep contraction while on bike for muscle and neuro retraining; wt bearing through RUE as tolerated with close monitoring of R shoulder LTGs = 12 weeks: 1.Patient will demo decreased UE stroke related symptoms as evidenced by decreasing QuickDash disability/symptom score to 30 or less. GOAL NOT PARTIALLY MET, decreased to 36.3 2. Patient will demo improved QOL as evidenced by increasing PSFS score to 7 or greater. 3.Patient will complete community mobility at [place] level or greater to increase return to PLOF. GOAL NOT PARTIALLY MET, car transfers ok, 4Runner transfers are hardest STGs = 6 weeks: Patient will increase R hospital wellness coordinator strength to 20# or greater.GOAL NOT MET, no change 2. Patient will increase RUE AROM over all joints tested to 700 degrees over joints tested or greater. GOAL PARTIALLY MET, increased from 565 to 615 3.Patient and family will be IND with UB HEP. GOAL PARTIALLY MET, ongoing MET GOALS: 1.Patient will demo decreased UE stroke related symptoms as evidenced by decreasing QuickDash disability/symptom score to 75 or less. GOAL MET 06/19 with 45.4 2.Patient will increase RUE PROM over all joints tested by 100 degrees or greater. GOAL MET, increased by 140 degrees 2.Patient will demo improved QOL as evidenced by increasing PSFS score to 5 or greater. GOAL MET 07/17, increased from 1.83 to 5.3 2. Patient will increase RUE AROM over all joints tested by 100 degrees or greater. GOAL MET, increased by 115 1.Patient will increase R hospital wellness coordinator strength to 10# or greater. GOAL MET at 12# on 08/14 Time Frame for Goals and Treatment : 10/09/24 Planned Interventions, Frequency, and Duration: 2x/week, 4 weeks Total Number of Visits Planned: 8 Planned Treatment Interventions: Custom orthosis fabrication, Prefabricated orthosis fitting, Therapeutic exercise (46969), Therapeutic activities (22930), Manual therapy (44094), Neuromuscular re-education (87859), Self-fdc management (66534), Sensory Integration (77134), Physical performance test, Orthotics management and training (24460,68704), Patient/Family/Caregiver Education, Functional training, Community / Work Reintegration, Ultrasound (73438), E-Stim Attended/TENS (86880), Fluidotherapy (02954) PLAN FOR NEXT VISIT: NMES for bicep contraction while on bike for muscle and neuro retraining; wt bearing through RUE as tolerated with close monitoring of R shoulder SUBJECTIVE: Completed progress report this date. Pt reported he would like to do one more month of OT then d/c as he is feeling discouraged over arm. Spouse disagrees with decision. Pain: Pain Pain Level: 0 Post Treatment Pain Post Treatment Pain Level: 0 PROMIS Scales 07/26/2024 07/10/2024 06/28/2024 Higher is Better Phys Func - T Score 30 (moderate dysfunction) Phys Func - Percentile 2 Self-Eff Symptom - T Score 41 (Average) 43 (Average) Self-Eff Symptom - Percentile 18 24 Mobility - T Score 37 (moderate dysfunction) 28 (severe dysfunction) Mobility - Percentile 10 1 Upper Extremity - T Score 27 (severe dysfunction) 26 (severe dysfunction) Upper Extremity - Percentile 1 1 Proxy-reported T-scores: mean of general population = 50. 5 points is clinically meaningfully difference Percentiles provide an indication of how the patient's score ranks in relation to the general population. Higher percentile rankings indicate better function/quality of life. 50th percentile is the average of the general population and indicates half of respondents had a worse score. OBJECTIVE MEASURES WITH LEVEL OF FUNCTION: PSFS: cooking- 8, donning shoes- 8, washing/drying back- 8, getting to shop- 6, using guitar- 2, mechanical work- 4, t= 5.8 QuickDash disability/symptom score: 40.9 Hand Strength R Sock Folder Position 2 (lbs): 12 lbs L Sock Folder Position 2 (lbs): 65 lbs UE AROM R Shoulder Extension: 50 Degrees R Shoulder Flex: 50 Degrees R Shoulder ABduction: 60 Degrees R Elbow Extension: 160 Degrees R Elbow Flexion: 95 Degrees R Forearm Supination: 50 Degrees R Forearm Pronation: 70 Degrees R Wrist Extension: 0 Degrees R Wrist Flexion: 40 Degrees R Wrist Radial Deviation: 15 Degrees R Wrist Ulnar Deviation: 25 Degrees TREATMENT: Therapeutic Activity: 1: Completed progress report this date for collaborative review of goals to ensure client-centered care. Based on Pt's above report, Pt and therapist in agreement to finish out OT POC until 10/09 then d/c/take a break with ability to return if interested. Pt reported feeling he has made most gains this reporting period in areas of walking, ability to make a fist of own volition, and control of arm to keep from falling down into ext. Pt reported feeling he req's most gains in cont'd movement and use of hand and active digital extension to release fist, floor transfers, and transfers in/out of unner. Skilled Intervention: Educated on proper/safe technique for activities performed today. Activity progression based on professional judgment. Billing Therapeutic Activity Treatment Minutes: 45 Skilled Treatment Time Minutes (timed and untimed codes): 45 Total Session Time (minutes): 45 Session Start Time : 1345 Session Stop Time : 1430 RHYS Hastings documented in this encounter [facility] 08-30-2024 Note HNO ID: [id number] Author: YANNA DURANT OTA/L Service: ? Author Type: Dairy Management Specialist Type: Progress Notes Filed: 08/31/2024 17:10 Note Text: Episode Visit Count: 20 Therapist That Will Accept/Oversee The Plan Of Care: Rivka JOINER Start of Care Date: 05/24/24 Onset Date: 11/16/23 Plan of Care Certification Date: 08/14/24 Next Certification Due Date: 10/09/24 Patient Identified by Name and Date of : Yes REHABILITATION AND SPORTS THERAPY OCCUPATIONAL THERAPY TREATMENT NOTE ASSESSMENT: Cabrera Sotelo tolerated the session with expected muscle soreness. He demonstrated difficulty with RUE RANGE OF MOTION . The patient will continue to benefit from ongoing skilled occupational therapy to progress toward set goals. PLAN FOR NEXT VISIT: NMES for bicep contraction while on bike for muscle and neuro retraining; wt bearing through RUE as tolerated with close monitoring of R shoulder SUBJECTIVE: Patient was running behind for physical therapy session, therefore late to occupational therapy session patient is pleased to report that he has not been having any arm pain. He does not want to address e-stim today but would like to work on exercises and expand upon using the ball for exercises at home Pain: OBJECTIVE MEASURES WITH LEVEL OF FUNCTION: No measurements this session TREATMENT: Neuromuscular Re-Education: 1: In standing, patient performed weightbearing activity into her right hand leaning and 15-second count then releasing and leaning into the left for 15-second count x 15 x 2 sets 2: Reviewed standing ball activity patient is now able to go left and right with ball and standing on small slightly deflated ball and will add this to current home exercise program. While patient was taking a rest break the therapist discussed that he could progress this flexion extension as tolerated then onto the wall as tolerated 3: Once patient began to fatigue and standing completed the rest of activities seated Skilled Intervention: Patient education as noted. Heidi Neuromuscular Re-Education Treatment Minutes: 30 Total Session Time (minutes): 30 Session Start Time : 1400 Session Stop Time : 1430 MARYLU Barcenas [facility] 08-30-2024 History of Present illness Narrative Episode Visit Count: 20 Therapist That Will Accept/Oversee The Plan Of Care: Rivka TOTH/Benton Start of Care Date: 05/24/24 Onset Date: 11/16/23 Plan of Care Certification Date: 08/14/24 Next Certification Due Date: 10/09/24 Patient Identified by Name and Date of : Yes REHABILITATION AND SPORTS THERAPY OCCUPATIONAL THERAPY TREATMENT NOTE ASSESSMENT: Cabrera Sotelo tolerated the session with expected muscle soreness. He demonstrated difficulty with RUE RANGE OF MOTION . The patient will continue to benefit from ongoing skilled occupational therapy to progress toward set goals. PLAN FOR NEXT VISIT: NMES for bicep contraction while on bike for muscle and neuro retraining; wt bearing through RUE as tolerated with close monitoring of R shoulder SUBJECTIVE: Patient was running behind for physical therapy session, therefore late to occupational therapy session patient is pleased to report that he has not been having any arm pain. He does not want to address e-stim today but would like to work on exercises and expand upon using the ball for exercises at home Pain: OBJECTIVE MEASURES WITH LEVEL OF FUNCTION: No measurements this session TREATMENT: Neuromuscular Re-Education: 1: In standing, patient performed weightbearing activity into her right hand leaning and 15-second count then releasing and leaning into the left for 15-second count x 15 x 2 sets 2: Reviewed standing ball activity patient is now able to go left and right with ball and standing on small slightly deflated ball and will add this to current home exercise program. While patient was taking a rest break the therapist discussed that he could progress this flexion extension as tolerated then onto the wall as tolerated 3: Once patient began to fatigue and standing completed the rest of activities seated Skilled Intervention: Patient education as noted. Heidi Neuromuscular Re-Education Treatment Minutes: 30 Total Session Time (minutes): 30 Session Start Time : 1400 Session Stop Time : 1430 MARYLU Barcenas documented in this encounter [facility] 08-30-2024 Note HNO ID: [id number] Author: CRYSTAL DAI, PT Service: ? Author Type: Physical Therapist Type: Progress Notes Filed: 08/30/2024 15:06 Note Text: Episode Visit Count: 14 Therapist That Will Accept/Oversee The Plan Of Care: Crystal Dai Start of Care Date: 06/19/24 Onset Date: (approx 10/20/2023) Plan of Care Certification Date: 09/18/24 Next Certification Due Date: 11/18/24 Patient Identified by Name and Date of : Yes REHABILITATION AND SPORTS THERAPY PHYSICAL THERAPY PROGRESS REPORT PLAN OF CARE UPDATE: Assessment: Cabrera Sotelo demonstrates improvements in walking in the house. The patient has progressed toward goals. Patient continues to present with impairments in balance, independence in exercise, overall function, strength, and symptom management that interfere with indep. walking . Current prognosis is Fair due to: (progress to date) . The patient will benefit from continued skilled therapy services to meet the updated goals for this plan of care as noted below. 06/20/25 - 09/07/24 - Signed 09/18 - 11/18 - SENT Goals for Episode of Care: established 06/19/24 Patient will increase strength of LE +1/2 m. grade to allow patient to improved ease of bed mobility; push through to gait speed - progressing 08/30 Patient will ambulate 400 feet with LBQC Left with stand by assist on level ground. - 90 feet in 2 mins Patient will demonstrate current home exercise program independently. - building 08/30 Patient will improve distance on 2 minute walk test by 40 feet (=98) to increase endurance for household and community ambulation. - progressing 08/30 Patient Goals: walk without a cane; ultimately he would like to return to riding his 3 lau; wants to rebuild a motorcycle that's been put on hold (states that he realizes it wouldn't be safe to drive with visual changes and reaction times) Time Frame for Goals and Treatment : 11/18/24 Planned Interventions, Frequency, and Duration: (2), (10) Total Number of Visits Planned: (20) Patient to be seen for Therapeutic exercise (46497), Neuromuscular re-education (95256), Manual therapy (55592), Therapeutic activities (25552), Self-fdc management (14886), Gait Training (37833), Patient/Family/Caregiver Education, Body Mechanics Training, Functional training, General Conditioning, E-Stim Attended/TENS (12943) (could trial NMES) PLAN FOR NEXT VISIT: high intensity gait training; balance training, LE strength/joint stabilizing program; PUSH HEP COMPLIANCE for gait with partner SUBJECTIVE: Pt. states that he's returned to his barn by vehicle and transversing the concrete; he is walking in his home and notes that it's less stiff legged; he reports compliance with HEP. Pain: Pain Pain Level: 0 Post Treatment Pain Post Treatment Pain Level: 0 PROMIS Scales 07/26/2024 07/10/2024 06/28/2024 Higher is Better Phys Func - T Score 30 (moderate dysfunction) Phys Func - Percentile 2 Self-Eff Symptom - T Score 41 (Average) 43 (Average) Self-Eff Symptom - Percentile 18 24 Mobility - T Score 37 (moderate dysfunction) 28 (severe dysfunction) Mobility - Percentile 10 1 Upper Extremity - T Score 27 (severe dysfunction) 26 (severe dysfunction) Upper Extremity - Percentile 1 1 Proxy-reported T-scores: mean of general population = 50. 5 points is clinically meaningfully difference Percentiles provide an indication of how the patient's score ranks in relation to the general population. Higher percentile rankings indicate better function/quality of life. 50th percentile is the average of the general population and indicates half of respondents had a worse score. OBJECTIVE MEASURES WITH LEVEL OF FUNCTION: LE Strength R Hip Flexion (L2): 3+/5 R Knee Extension (L3): 3+/5 R Knee Flexion: 2-/5 R Ankle Dorsiflexion (L4): 1/5 Functional Performance Test Results 2 Minute Walk Test (feet): 90 feet 2 Minute Walk Test Gait Speed (calculated): 0.23 m/s 4 Stage Balance Test Narrow base of support (sec): 30 sec (eyes closed) Tandem base of support (sec): 6 sec (eyes open) Single leg stance - left (sec): 3 sec (eyes open) TREATMENT: Therapeutic Exercise: 1: Nustep L3.3 x5' with 3- 30sec fast intervals for increaased endurance and RLE strength (able to indep. place R foot on pedal) 7: 2:00 walk test Skilled Intervention: assessment Manual Therapy: 1: data collection for progress reporting Skilled Intervention: Manual skills to improve joint mobility, ROM, and decrease pain. Utilized anatomy knowledge of the therapist, and assessment of patient's response to intervention. Neuromuscular Re-Education: 1: balance training: outdoor walking on grass for uneven surface with LBQC 2: balance reassessment Skilled Intervention: assessment Billing Therapeutic Exercise Treatment Minutes: 7 Manual TherapyTreatment Minutes: 5 Neuromuscular Re-Education Treatment Minutes: 18 Total Session Time (minutes): 30 S (more content not included)... [facility] 08-30-2024 History of Present illness Narrative Images from the original note were not included. Episode Visit Count: 14 Therapist That Will Accept/Oversee The Plan Of Care: Crystal Dai Start of Care Date: 06/19/24 Onset Date: (approx 10/20/2023) Plan of Care Certification Date: 09/18/24 Next Certification Due Date: 11/18/24 Patient Identified by Name and Date of : Yes REHABILITATION AND SPORTS THERAPY PHYSICAL THERAPY PROGRESS REPORT PLAN OF CARE UPDATE: Assessment: Cabrera Kearnss demonstrates improvements in walking in the house. The patient has progressed toward goals. Patient continues to present with impairments in balance, independence in exercise, overall function, strength, and symptom management that interfere with indep. walking . Current prognosis is Fair due to: (progress to date) . The patient will benefit from continued skilled therapy services to meet the updated goals for this plan of care as noted below. 06/20/25 - 09/07/24 - Signed 09/18 - 11/18 - SENT Goals for Episode of Care: established 06/19/24 Patient will increase strength of LE +1/2 m. grade to allow patient to improved ease of bed mobility; push through to gait speed - progressing 08/30 Patient will ambulate 400 feet with LBQC Left with stand by assist on level ground. - 90 feet in 2 mins Patient will demonstrate current home exercise program independently. - building 08/30 Patient will improve distance on 2 minute walk test by 40 feet (=98) to increase endurance for household and community ambulation. - progressing 08/30 Patient Goals: walk without a cane; ultimately he would like to return to riding his 3 lau; wants to rebuild a motorcycle that's been put on hold (states that he realizes it wouldn't be safe to drive with visual changes and reaction times) Time Frame for Goals and Treatment : 11/18/24 Planned Interventions, Frequency, and Duration: (2), (10) Total Number of Visits Planned: (20) Patient to be seen for Therapeutic exercise (16522), Neuromuscular re-education (69411), Manual therapy (56721), Therapeutic activities (09019), Self-fdc management (24056), Gait Training (86669), Patient/Family/Caregiver Education, Body Mechanics Training, Functional training, General Conditioning, E-Stim Attended/TENS (02718) (could trial NMES) PLAN FOR NEXT VISIT: high intensity gait training; balance training, LE strength/joint stabilizing program; PUSH HEP COMPLIANCE for gait with partner SUBJECTIVE: Pt. states that he's returned to his barn by vehicle and transversing the concrete; he is walking in his home and notes that it's less stiff legged; he reports compliance with HEP. Pain: Pain Pain Level: 0 Post Treatment Pain Post Treatment Pain Level: 0 PROMIS Scales 07/26/2024 07/10/2024 06/28/2024 Higher is Better Phys Func - T Score 30 (moderate dysfunction) Phys Func - Percentile 2 Self-Eff Symptom - T Score 41 (Average) 43 (Average) Self-Eff Symptom - Percentile 18 24 Mobility - T Score 37 (moderate dysfunction) 28 (severe dysfunction) Mobility - Percentile 10 1 Upper Extremity - T Score 27 (severe dysfunction) 26 (severe dysfunction) Upper Extremity - Percentile 1 1 Proxy-reported T-scores: mean of general population = 50. 5 points is clinically meaningfully difference Percentiles provide an indication of how the patient's score ranks in relation to the general population. Higher percentile rankings indicate better function/quality of life. 50th percentile is the average of the general population and indicates half of respondents had a worse score. OBJECTIVE MEASURES WITH LEVEL OF FUNCTION: LE Strength R Hip Flexion (L2): 3+/5 R Knee Extension (L3): 3+/5 R Knee Flexion: 2-/5 R Ankle Dorsiflexion (L4): 1/5 Functional Performance Test Results 2 Minute Walk Test (feet): 90 feet 2 Minute Walk Test Gait Speed (calculated): 0.23 m/s 4 Stage Balance Test Narrow base of support (sec): 30 sec (eyes closed) Tandem base of support (sec): 6 sec (eyes open) Single leg stance - left (sec): 3 sec (eyes open) TREATMENT: Therapeutic Exercise: 1: Nustep L3.3 x5' with 3- 30sec fast intervals for increaased endurance and RLE strength (able to indep. place R foot on pedal) 7: 2:00 walk test Skilled Intervention: assessment Manual Therapy: 1: data collection for progress reporting Skilled Intervention: Manual skills to improve joint mobility, ROM, and decrease pain. Utilized anatomy knowledge of the therapist, and assessment of patient's response to intervention. Neuromuscular Re-Education: 1: balance training: outdoor walking on grass for uneven surface with LBQC 2: balance reassessment Skilled Intervention: assessment Billing Therapeutic Exercise Treatment Minutes: 7 Manual TherapyTreatment Minutes: 5 Neuromuscular Re-Education Treatment Minutes: 18 Total Session Time (minutes): 30 Session Start Time : 1330 Session Stop Time : 1400 Crystal Dai PT documented in this encounter [facility] 08-23-2024 History of Present illness Narrative Program_ID:[id number] Access Code: [email or web address] URL: [email or web address]/ Date: 08-23-2024 Prepared By: CRYSTAL DAI Program Notes Exercises - Seated March - x daily - 7 x weekly - 3 sets - 5-8 reps - Forward and Backward Stepping at Pool Wall - x daily - 7 x weekly - sets - reps - Sitting Knee Extension with Resistance - 1 x daily - 7 x weekly - 2 sets - 10 reps - Seated Long Arc Quad - 1 x daily - 7 x weekly - 2 sets - 10 reps - Supine Quad Set - 1 x daily - 7 x weekly - 2 sets - 10 reps - Standing Terminal Knee Extension with Resistance - 1 x daily - 7 x weekly - 2 sets - 10 reps - Marching with Resistance - 1 x daily - 7 x weekly - 2 sets - 10 reps - Side to Side Weight Shift with Counter Support - 1 x daily - 7 x weekly - 2 sets - 10 reps - Standing UE Activity: Weight-Bearing With Extended Elbows, Open Hand - 1 x daily - 7 x weekly - 3 sets - 10 reps Patient Education - Adaptive Equipment for Eating - Using a [place] Cuff Episode Visit Count: 19 Therapist That Will Accept/Oversee The Plan Of Care: Rivka TOTH/Benton Start of Care Date: 05/24/24 Onset Date: 11/16/23 Plan of Care Certification Date: 08/14/24 Next Certification Due Date: 10/09/24 Patient Identified by Name and Date of : Yes REHABILITATION AND SPORTS THERAPY OCCUPATIONAL THERAPY TREATMENT NOTE ASSESSMENT: Cabrera Sotelo tolerated the session with no issues. He demonstrated improvements in functional mobility . The patient will continue to benefit from ongoing skilled occupational therapy to progress toward set goals. PLAN FOR NEXT VISIT: NMES for bicep contraction while on bike for muscle and neuro retraining; wt bearing through RUE as tolerated with close monitoring of R shoulder SUBJECTIVE: pt reported that he would like to continue Estim Pain: Pain Pain Level: 0 OBJECTIVE MEASURES WITH LEVEL OF FUNCTION: No measurements this session TREATMENT: Neuromuscular Re-Education: 1: UBE machine for cycle motion of RUE. used coban with dycem attached to assist with RUE grasp . Cycle time 10min broken into 3 minutes of warm up then 7 minutes of estim to bicep . 2: weightbearing in standing . Pt to alternated pushing into hand , release as tolerated. added 1 pound weight to assist , completed for 5 rounds. added sponge however the pt was not able to depress fully and reported fatigue Skilled Intervention: Patient education as noted. Assigned Home Exercise Program: 1: continue weight bearing while standing 2: Access Code: [email or web address] URL: [email or web address]/ Date: 08/23/2024 Prepared by: YANNA DURANT Exercises - Seated August - 7 x weekly - 3 sets - 5-8 reps - Forward and Backward Stepping at Pool Wall - 7 x weekly - Sitting Knee Extension with Resistance - 1 x daily - 7 x weekly - 2 sets - 10 reps - Seated Long Arc Quad - 1 x daily - 7 x weekly - 2 sets - 10 reps - 5 hold - Supine Quad Set - 1 x daily - 7 x weekly - 2 sets - 10 reps - Standing Terminal Knee Extension with Resistance - 1 x daily - 7 x weekly - 2 sets - 10 reps - Marching with Resistance - 1 x daily - 7 x weekly - 2 sets - 10 reps - Side to Side Weight Shift with Counter Support - 1 x daily - 7 x weekly - 2 sets - 10 reps - Standing UE Activity: Weight-Bearing With Extended Elbows, Open Hand - 1 x daily - 7 x weekly - 3 sets - 10 reps Patient Education - Adaptive Equipment for Eating - Using a [place] Cuff Billing Neuromuscular Re-Education Treatment Minutes: 45 Skilled Treatment Time Minutes (timed and untimed codes): 45 Total Session Time (minutes): 45 Session Start Time : 1345 Session Stop Time : 1430 MARYLU Barcenas documented in this encounter [facility] 08-23-2024 Note HNO ID: [id number] Author: YANNA DURANT OTA/L Service: ? Author Type: Dairy Management Specialist Type: Progress Notes Filed: 08/23/2024 17:13 Note Text: Episode Visit Count: 19 Therapist That Will Accept/Oversee The Plan Of Care: Rivka JOINER Start of Care Date: 05/24/24 Onset Date: 11/16/23 Plan of Care Certification Date: 08/14/24 Next Certification Due Date: 10/09/24 Patient Identified by Name and Date of : Yes REHABILITATION AND SPORTS THERAPY OCCUPATIONAL THERAPY TREATMENT NOTE ASSESSMENT: Cabrera Sotelo tolerated the session with no issues. He demonstrated improvements in functional mobility . The patient will continue to benefit from ongoing skilled occupational therapy to progress toward set goals. PLAN FOR NEXT VISIT: NMES for bicep contraction while on bike for muscle and neuro retraining; wt bearing through RUE as tolerated with close monitoring of R shoulder SUBJECTIVE: pt reported that he would like to continue Estim Pain: Pain Pain Level: 0 OBJECTIVE MEASURES WITH LEVEL OF FUNCTION: No measurements this session TREATMENT: Neuromuscular Re-Education: 1: UBE machine for cycle motion of RUE. used coban with dycem attached to assist with RUE grasp . Cycle time 10min broken into 3 minutes of warm up then 7 minutes of estim to bicep . 2: weightbearing in standing . Pt to alternated pushing into hand , release as tolerated. added 1 pound weight to assist , completed for 5 rounds. added sponge however the pt was not able to depress fully and reported fatigue Skilled Intervention: Patient education as noted. Assigned Home Exercise Program: 1: continue weight bearing while standing 2: Access Code: [email or web address] URL: [email or web address] Date: 08/23/2024 Prepared by: YANNA DURANT Exercises - Seated August - 7 x weekly - 3 sets - 5-8 reps - Forward and Backward Stepping at Pool Wall - 7 x weekly - Sitting Knee Extension with Resistance - 1 x daily - 7 x weekly - 2 sets - 10 reps - Seated Long Arc Quad - 1 x daily - 7 x weekly - 2 sets - 10 reps - 5 hold - Supine Quad Set - 1 x daily - 7 x weekly - 2 sets - 10 reps - Standing Terminal Knee Extension with Resistance - 1 x daily - 7 x weekly - 2 sets - 10 reps - Marching with Resistance - 1 x daily - 7 x weekly - 2 sets - 10 reps - Side to Side Weight Shift with Counter Support - 1 x daily - 7 x weekly - 2 sets - 10 reps - Standing UE Activity: Weight-Bearing With Extended Elbows, Open Hand - 1 x daily - 7 x weekly - 3 sets - 10 reps Patient Education - Adaptive Equipment for Eating - Using a [place] Cuff Billing Neuromuscular Re-Education Treatment Minutes: 45 Skilled Treatment Time Minutes (timed and untimed codes): 45 Total Session Time (minutes): 45 Session Start Time : 1345 Session Stop Time : 1430 MARYLU Barcenas [facility] 08-21-2024 Note HNO ID: [id number] Author: YANNA VANCE OTA/L Service: ? Author Type: Dairy Management Specialist Type: Progress Notes Filed: 08/21/2024 15:34 Note Text: Episode Visit Count: 18 Therapist That Will Accept/Oversee The Plan Of Care: Rivka JOINER Start of Care Date: 05/24/24 Onset Date: 11/16/23 Plan of Care Certification Date: 08/14/24 Next Certification Due Date: 10/09/24 Patient Identified by Name and Date of : Yes REHABILITATION AND SPORTS THERAPY OCCUPATIONAL THERAPY TREATMENT NOTE ASSESSMENT: Cabrera Sotelo tolerated the session with no issues. He demonstrated difficulty with ROM and sensation in LUE. The patient will continue to benefit from ongoing skilled occupational therapy to progress toward set goals. PLAN FOR NEXT VISIT: proprioception, PROM/AAROM, SUBJECTIVE: Pt reports attempts to hold guitar with difficulty and Pt giving up. Family member sat guitar out again and said he can try again later. Pain: Pain Pain Level: 0 Post Treatment Pain Post Treatment Pain Level: 0 OBJECTIVE MEASURES WITH LEVEL OF FUNCTION: TREATMENT: Therapeutic Exercise: 1: PROM for finger flexion/extension and hyperextension, wrist flexion/extension, radial/ulnar deviation, supination/pronation, elbow flexion/extension for increased ROM and for sensation of movement for increased participation in fx tasks. Skilled Intervention: Patient was educated in proper exercise technique and purpose for exercises. Neuromuscular Re-Education: 1: proprioception and patterned movement using NuStep on BUE with stabilization of R hand for increased sensation and muscle stimulation demonstrating trace muscle contraction. 2: finger adduction against resistance for proprioception. Skilled Intervention: Education in proprioceptive/kinesthetic awareness during weight bearing, PROM, and resistance exercise.. Billing Therapeutic Exercise Treatment Minutes: 15 Neuromuscular Re-Education Treatment Minutes: 30 Skilled Treatment Time Minutes (timed and untimed codes): 45 Total Session Time (minutes): 45 Session Start Time : 1345 Session Stop Time : 1430 MARYLU Shah [facility] 08-21-2024 History of Present illness Narrative Episode Visit Count: 18 Therapist That Will Accept/Oversee The Plan Of Care: Rivka TOTH/Benton Start of Care Date: 05/24/24 Onset Date: 11/16/23 Plan of Care Certification Date: 08/14/24 Next Certification Due Date: 10/09/24 Patient Identified by Name and Date of : Yes REHABILITATION AND SPORTS THERAPY OCCUPATIONAL THERAPY TREATMENT NOTE ASSESSMENT: Cabrera Sotelo tolerated the session with no issues. He demonstrated difficulty with ROM and sensation in LUE. The patient will continue to benefit from ongoing skilled occupational therapy to progress toward set goals. PLAN FOR NEXT VISIT: proprioception, PROM/AAROM, SUBJECTIVE: Pt reports attempts to hold guitar with difficulty and Pt giving up. Family member sat guitar out again and said he can try again later. Pain: Pain Pain Level: 0 Post Treatment Pain Post Treatment Pain Level: 0 OBJECTIVE MEASURES WITH LEVEL OF FUNCTION: TREATMENT: Therapeutic Exercise: 1: PROM for finger flexion/extension and hyperextension, wrist flexion/extension, radial/ulnar deviation, supination/pronation, elbow flexion/extension for increased ROM and for sensation of movement for increased participation in fx tasks. Skilled Intervention: Patient was educated in proper exercise technique and purpose for exercises. Neuromuscular Re-Education: 1: proprioception and patterned movement using NuStep on BUE with stabilization of R hand for increased sensation and muscle stimulation demonstrating trace muscle contraction. 2: finger adduction against resistance for proprioception. Skilled Intervention: Education in proprioceptive/kinesthetic awareness during weight bearing, PROM, and resistance exercise.. Billing Therapeutic Exercise Treatment Minutes: 15 Neuromuscular Re-Education Treatment Minutes: 30 Skilled Treatment Time Minutes (timed and untimed codes): 45 Total Session Time (minutes): 45 Session Start Time : 1345 Session Stop Time : 1430 MARYLU Shah documented in this encounter [facility] 08-21-2024 Note HNO ID: [id number] Author: OUSMANE PRO PTA Service: ? Author Type: Bookbinder Apprentice Type: Progress Notes Filed: 08/21/2024 13:48 Note Text: Episode Visit Count: 13 Therapist That Will Accept/Oversee The Plan Of Care: Crystal Dai Start of Care Date: 06/19/24 Onset Date: (approx 10/20/2023) Plan of Care Certification Date: 06/20/25 Next Certification Due Date: 09/07/24 Patient Identified by Name and Date of : Yes REHABILITATION AND SPORTS THERAPY PHYSICAL THERAPY TREATMENT NOTE ASSESSMENT: Cabrera Tod Aris tolerated the session with no issues. He demonstrated improvements in gait mechanics on treadmill this session demonstrating increased step length and increased hip/knee flexion. The patient will continue to benefit from ongoing skilled physical therapy to progress toward set goals. PLAN FOR NEXT VISIT: Continue LE strengthening, balance and gait training. Continue to ambulate on TM for constant speed and gait mechanics SUBJECTIVE: Patient reported he was wanting to only do one day a week but his noted he still needs to be coming twice a week if possible. Pain: Pain Pain Level: 0 Post Treatment Pain Post Treatment Pain Level: 0 OBJECTIVE MEASURES WITH LEVEL OF FUNCTION: There were no objective measurements taken on this date. See assessment for patient response to treatment. TREATMENT: Therapeutic Exercise: 1: Nustep L3 x5' with 3- 30sec fast intervals for increaased endurance and RLE strength (cues to not let hip fall into ER) 2: seated LAQ with 5 holds x10 3: standing hamstring curls with therapist OP to end range x10 4: standing alt toe taps 8 x10, CGA Skilled Intervention: Patient was educated in proper exercise technique and purpose for exercises. Skilled judgment was used in selection of appropriate interventions. Correct performance of therapeutic exercises was facilitated with verbal and visual cuing. Gait Trainin: TM walking 0.6mph 2minute x1, 1.5min x1 with standing rest breaks, both hands holding in front for ambualtion with constant speed and proper gait mechanics CGA. Stool to get on with Min A from therapsit Skilled Intervention: Patient was provided minimal assistance, contact guard assistance during pre-gait/gait training to prevent falls and insure safety. Facilitated proper gait cycle with the use of verbal and visual cues for correction of gait deviations identified in the objective section above. Gait belt utilized during session for safety. Billing Therapeutic Exercise Treatment Minutes: 20 Gait Training Treatment Minutes: 10 Skilled Treatment Time Minutes (timed and untimed codes): 30 (shorter session due to overlap with OT) Total Session Time (minutes): 30 Session Start Time : 1315 Session Stop Time : 1345 Ousmane Pro [facility] 08-21-2024 History of Present illness Narrative Episode Visit Count: 13 Therapist That Will Accept/Oversee The Plan Of Care: Crystal Dai Start of Care Date: 06/19/24 Onset Date: (approx 10/20/2023) Plan of Care Certification Date: 06/20/25 Next Certification Due Date: 09/07/24 Patient Identified by Name and Date of : Yes REHABILITATION AND SPORTS THERAPY PHYSICAL THERAPY TREATMENT NOTE ASSESSMENT: Cabrera Kearnss tolerated the session with no issues. He demonstrated improvements in gait mechanics on treadmill this session demonstrating increased step length and increased hip/knee flexion. The patient will continue to benefit from ongoing skilled physical therapy to progress toward set goals. PLAN FOR NEXT VISIT: Continue LE strengthening, balance and gait training. Continue to ambulate on TM for constant speed and gait mechanics SUBJECTIVE: Patient reported he was wanting to only do one day a week but his noted he still needs to be coming twice a week if possible. Pain: Pain Pain Level: 0 Post Treatment Pain Post Treatment Pain Level: 0 OBJECTIVE MEASURES WITH LEVEL OF FUNCTION: There were no objective measurements taken on this date. See assessment for patient response to treatment. TREATMENT: Therapeutic Exercise: 1: Nustep L3 x5' with 3- 30sec fast intervals for increaased endurance and RLE strength (cues to not let hip fall into ER) 2: seated LAQ with 5 holds x10 3: standing hamstring curls with therapist OP to end range x10 4: standing alt toe taps 8 x10, CGA Skilled Intervention: Patient was educated in proper exercise technique and purpose for exercises. Skilled judgment was used in selection of appropriate interventions. Correct performance of therapeutic exercises was facilitated with verbal and visual cuing. Gait Trainin: TM walking 0.6mph 2minute x1, 1.5min x1 with standing rest breaks, both hands holding in front for ambualtion with constant speed and proper gait mechanics CGA. Stool to get on with Min A from therapsit Skilled Intervention: Patient was provided minimal assistance, contact guard assistance during pre-gait/gait training to prevent falls and insure safety. Facilitated proper gait cycle with the use of verbal and visual cues for correction of gait deviations identified in the objective section above. Gait belt utilized during session for safety. Billing Therapeutic Exercise Treatment Minutes: 20 Gait Training Treatment Minutes: 10 Skilled Treatment Time Minutes (timed and untimed codes): 30 (shorter session due to overlap with OT) Total Session Time (minutes): 30 Session Start Time : 1315 Session Stop Time : 1345 Ousmane Pro PTA documented in this encounter [facility] 08-16-2024 Note HNO ID: [id number] Author: OUSMANE PRO PTA Service: ? Author Type: Bookbinder Apprentice Type: Progress Notes Filed: 08/16/2024 15:36 Note Text: Episode Visit Count: 12 Therapist That Will Accept/Oversee The Plan Of Care: Crystal Dai Start of Care Date: 06/19/24 Onset Date: (approx 10/20/2023) Plan of Care Certification Date: 06/20/25 Next Certification Due Date: 09/07/24 Patient Identified by Name and Date of : Yes REHABILITATION AND SPORTS THERAPY PHYSICAL THERAPY TREATMENT NOTE ASSESSMENT: Cabrera Sotelo tolerated the session with fatigue and no issues. He demonstrated improvements in hip and knee flexion with gait on treadmill walking this session. The patient will continue to benefit from ongoing skilled physical therapy to progress toward set goals. PLAN FOR NEXT VISIT: Continue LE strengthening, balance and gait training. Continue to ambulate on TM for constant speed and gait mechanics SUBJECTIVE: Patient reports he has a heart check up after therapy. He notes they will be looking at his blood pressure as well duen to high blood pressure at night Pain: Pain Pain Level: 0 Post Treatment Pain Post Treatment Pain Level: 0 OBJECTIVE MEASURES WITH LEVEL OF FUNCTION: There were no objective measurements taken on this date. See assessment for patient response to treatment. TREATMENT: Therapeutic Exercise: 1: Nustep L3 x6' with 3- 30sec fast intervals for increaased endurance and RLE strength (cues to not let hip fall into ER) 2: seated LAQ with 5 holds x10 3: standing hamstring curls with therapist OP to end range x10 4: standing alt toe taps 8 x10, CGA 7: LP (4) 6pl x20 with emphasis on eccentric quad control Skilled Intervention: Patient was educated in proper exercise technique and purpose for exercises. Skilled judgment was used in selection of appropriate interventions. Correct performance of therapeutic exercises was facilitated with verbal and visual cuing. Gait Trainin: TM walking 0.6mph 1minute x3 with standing rest breaks, both hands holding in front for ambualtion with constant speed and proper gait mechanics CGA. Stool to get on with Min A from therapsit 3: Ambulation with cues for fast pace 50' x2 CGA SBQC Skilled Intervention: Patient was provided contact guard assistance, stand by assist during pre-gait/gait training to prevent falls and insure safety. Facilitated proper gait cycle with the use of verbal and visual cues for correction of gait deviations identified in the objective section above. Gait belt utilized during session for safety. Skilled judgment used to assess selection, proper sizing, and proper use of assistive device. Billing Therapeutic Exercise Treatment Minutes: 20 Gait Training Treatment Minutes: 20 Skilled Treatment Time Minutes (timed and untimed codes): 40 Total Session Time (minutes): 40 Session Start Time : 1445 Session Stop Time : 1525 Ousmane Pro PTA [facility] 08-16-2024 History of Present illness Narrative Episode Visit Count: 12 Therapist That Will Accept/Oversee The Plan Of Care: Crystal Dai Start of Care Date: 06/19/24 Onset Date: (approx 10/20/2023) Plan of Care Certification Date: 06/20/25 Next Certification Due Date: 09/07/24 Patient Identified by Name and Date of : Yes REHABILITATION AND SPORTS THERAPY PHYSICAL THERAPY TREATMENT NOTE ASSESSMENT: Cabrera Sotelo tolerated the session with fatigue and no issues. He demonstrated improvements in hip and knee flexion with gait on treadmill walking this session. The patient will continue to benefit from ongoing skilled physical therapy to progress toward set goals. PLAN FOR NEXT VISIT: Continue LE strengthening, balance and gait training. Continue to ambulate on TM for constant speed and gait mechanics SUBJECTIVE: Patient reports he has a heart check up after therapy. He notes they will be looking at his blood pressure as well duen to high blood pressure at night Pain: Pain Pain Level: 0 Post Treatment Pain Post Treatment Pain Level: 0 OBJECTIVE MEASURES WITH LEVEL OF FUNCTION: There were no objective measurements taken on this date. See assessment for patient response to treatment. TREATMENT: Therapeutic Exercise: 1: Nustep L3 x6' with 3- 30sec fast intervals for increaased endurance and RLE strength (cues to not let hip fall into ER) 2: seated LAQ with 5 holds x10 3: standing hamstring curls with therapist OP to end range x10 4: standing alt toe taps 8 x10, CGA 7: LP (4) 6pl x20 with emphasis on eccentric quad control Skilled Intervention: Patient was educated in proper exercise technique and purpose for exercises. Skilled judgment was used in selection of appropriate interventions. Correct performance of therapeutic exercises was facilitated with verbal and visual cuing. Gait Trainin: TM walking 0.6mph 1minute x3 with standing rest breaks, both hands holding in front for ambualtion with constant speed and proper gait mechanics CGA. Stool to get on with Min A from therapsit 3: Ambulation with cues for fast pace 50' x2 CGA SBQC Skilled Intervention: Patient was provided contact guard assistance, stand by assist during pre-gait/gait training to prevent falls and insure safety. Facilitated proper gait cycle with the use of verbal and visual cues for correction of gait deviations identified in the objective section above. Gait belt utilized during session for safety. Skilled judgment used to assess selection, proper sizing, and proper use of assistive device. Billing Therapeutic Exercise Treatment Minutes: 20 Gait Training Treatment Minutes: 20 Skilled Treatment Time Minutes (timed and untimed codes): 40 Total Session Time (minutes): 40 Session Start Time : 1445 Session Stop Time : 1525 Ousmane Pro PTA documented in this encounter [facility] 08-16-2024 Note HNO ID: [id number] Author: YANNA VANCE OTA/L Service: ? Author Type: Dairy Management Specialist Type: Progress Notes Filed: 08/16/2024 15:39 Note Text: Episode Visit Count: 17 Therapist That Will Accept/Oversee The Plan Of Care: Rivka TOTH/Benton Start of Care Date: 05/24/24 Onset Date: 11/16/23 Plan of Care Certification Date: 08/14/24 Next Certification Due Date: 10/09/24 Patient Identified by Name and Date of : Yes REHABILITATION AND SPORTS THERAPY OCCUPATIONAL THERAPY TREATMENT NOTE ASSESSMENT: Cabrera Sotelo tolerated the session with expected muscle soreness. He demonstrated difficulty with ROM and control in RUE. The patient will continue to benefit from ongoing skilled occupational therapy to progress toward set goals. PLAN FOR NEXT VISIT: proprioception, PROM/AAROM, SUBJECTIVE: Pt reports 0 follow through with assignment from OT to practice holding guitar d/t need to work on confidence. Pain: Pain Pain Level: 0 Post Treatment Pain Post Treatment Pain Level: 0 OBJECTIVE MEASURES WITH LEVEL OF FUNCTION: TREATMENT: Neuromuscular Re-Education: 1: proprioception and patterned movement using NuStep on BUE with stabilization of R hand for increased sensation and muscle stimulation demonstrating trace muscle contraction. 2: elbow flexion and hyper extension against resistance for increased proprioception for muscle strength and movement for engagement in activity. 3: [facility] hospital wellness coordinator task for increased grasp/release pattern Skilled Intervention: Education in proprioceptive/kinesthetic awareness during sitting and upper extremity positioning. Billing Neuromuscular Re-Education Treatment Minutes: 45 Skilled Treatment Time Minutes (timed and untimed codes): 45 Total Session Time (minutes): 45 Session Start Time : 1345 Session Stop Time : 1430 MARYLU Shah [facility] 08-16-2024 History of Present illness Narrative Episode Visit Count: 17 Therapist That Will Accept/Oversee The Plan Of Care: Rivka Naranjo OTR/Benton Start of Care Date: 05/24/24 Onset Date: 11/16/23 Plan of Care Certification Date: 08/14/24 Next Certification Due Date: 10/09/24 Patient Identified by Name and Date of : Yes REHABILITATION AND SPORTS THERAPY OCCUPATIONAL THERAPY TREATMENT NOTE ASSESSMENT: Cabrera Sotelo tolerated the session with expected muscle soreness. He demonstrated difficulty with ROM and control in RUE. The patient will continue to benefit from ongoing skilled occupational therapy to progress toward set goals. PLAN FOR NEXT VISIT: proprioception, PROM/AAROM, SUBJECTIVE: Pt reports 0 follow through with assignment from OT to practice holding guitar d/t need to work on confidence. Pain: Pain Pain Level: 0 Post Treatment Pain Post Treatment Pain Level: 0 OBJECTIVE MEASURES WITH LEVEL OF FUNCTION: TREATMENT: Neuromuscular Re-Education: 1: proprioception and patterned movement using NuStep on BUE with stabilization of R hand for increased sensation and muscle stimulation demonstrating trace muscle contraction. 2: elbow flexion and hyper extension against resistance for increased proprioception for muscle strength and movement for engagement in activity. 3: [facility] hospital wellness coordinator task for increased grasp/release pattern Skilled Intervention: Education in proprioceptive/kinesthetic awareness during sitting and upper extremity positioning. Billing Neuromuscular Re-Education Treatment Minutes: 45 Skilled Treatment Time Minutes (timed and untimed codes): 45 Total Session Time (minutes): 45 Session Start Time : 1344 Session Stop Time : 1429 MARYLU Shah documented in this encounter [facility] 08-14-2024 Note HNO ID: [id number] Author: OUSMANE PRO PTA Service: ? Author Type: Bookbinder Apprentice Type: Progress Notes Filed: 08/14/2024 15:52 Note Text: Episode Visit Count: 11 Therapist That Will Accept/Oversee The Plan Of Care: Crystal Dai Start of Care Date: 06/19/24 Onset Date: (approx 10/20/2023) Plan of Care Certification Date: 06/20/25 Next Certification Due Date: 09/07/24 Patient Identified by Name and Date of : Yes REHABILITATION AND SPORTS THERAPY PHYSICAL THERAPY TREATMENT NOTE ASSESSMENT: Cabrera Sotelo tolerated the session with fatigue and no issues. He demonstrated difficulty with balance during ambulation this session demonstrating loss of balance corrected by self and therapist. The patient will continue to benefit from ongoing skilled physical therapy to progress toward set goals. PLAN FOR NEXT VISIT: Continue LE strengthening, balance and gait training. Patient ambulate into clinic with quad cane when able. discuss aquatic option for increased mobility SUBJECTIVE: Patient reports he has not been sleeping well so he feels a little fatigued today. He notes he feels like he is continuing to make improvements Pain: Pain Pain Level: 0 Post Treatment Pain Post Treatment Pain Level: 0 OBJECTIVE MEASURES WITH LEVEL OF FUNCTION: There were no objective measurements taken on this date. See assessment for patient response to treatment. TREATMENT: Therapeutic Exercise: 1: Nustep L3 x6' with 3- 30sec fast intervals for increaased endurance and RLE strength (cues to not let hip fall into ER) 2: seated LAQ with 3# ankle weight RLE x20 3: seated hamstring curl 3# ankle weight x20 4: seated august 3# ankle weight x20 7: LP (4) 6pl x20 with emphasis on eccentric quad control 8: 4 step ups x5 and step downs with RLE x5 CGA to block RLE from excessive genu recuvatum Skilled Intervention: Patient was educated in proper exercise technique and purpose for exercises. Skilled judgment was used in selection of appropriate interventions. Correct performance of therapeutic exercises was facilitated with verbal and visual cuing. Gait Trainin: ambulation with SBQC x2 laps with quick walking intervals x30' at a time x2 each lap, CGA-> Min A for LOB Skilled Intervention: Patient was provided contact guard assistance during pre-gait/gait training to prevent falls and insure safety. Facilitated proper gait cycle with the use of verbal and visual cues for correction of gait deviations identified in the objective section above. Gait belt utilized during session for safety. Skilled judgment used to assess selection of assistive device. Billing Therapeutic Exercise Treatment Minutes: 30 Gait Training Treatment Minutes: 15 Skilled Treatment Time Minutes (timed and untimed codes): 45 Total Session Time (minutes): 45 Session Start Time : 1440 Session Stop Time : 1525 Ousmane Pro PTA [facility] 08-14-2024 History of Present illness Narrative Episode Visit Count: 11 Therapist That Will Accept/Oversee The Plan Of Care: Crystal Dai Start of Care Date: 06/19/24 Onset Date: (approx 10/20/2023) Plan of Care Certification Date: 06/20/25 Next Certification Due Date: 09/07/24 Patient Identified by Name and Date of : Yes REHABILITATION AND SPORTS THERAPY PHYSICAL THERAPY TREATMENT NOTE ASSESSMENT: Cabrera Sotelo tolerated the session with fatigue and no issues. He demonstrated difficulty with balance during ambulation this session demonstrating loss of balance corrected by self and therapist. The patient will continue to benefit from ongoing skilled physical therapy to progress toward set goals. PLAN FOR NEXT VISIT: Continue LE strengthening, balance and gait training. Patient ambulate into clinic with quad cane when able. discuss aquatic option for increased mobility SUBJECTIVE: Patient reports he has not been sleeping well so he feels a little fatigued today. He notes he feels like he is continuing to make improvements Pain: Pain Pain Level: 0 Post Treatment Pain Post Treatment Pain Level: 0 OBJECTIVE MEASURES WITH LEVEL OF FUNCTION: There were no objective measurements taken on this date. See assessment for patient response to treatment. TREATMENT: Therapeutic Exercise: 1: Nustep L3 x6' with 3- 30sec fast intervals for increaased endurance and RLE strength (cues to not let hip fall into ER) 2: seated LAQ with 3# ankle weight RLE x20 3: seated hamstring curl 3# ankle weight x20 4: seated august 3# ankle weight x20 7: LP (4) 6pl x20 with emphasis on eccentric quad control 8: 4 step ups x5 and step downs with RLE x5 CGA to block RLE from excessive genu recuvatum Skilled Intervention: Patient was educated in proper exercise technique and purpose for exercises. Skilled judgment was used in selection of appropriate interventions. Correct performance of therapeutic exercises was facilitated with verbal and visual cuing. Gait Trainin: ambulation with SBQC x2 laps with quick walking intervals x30' at a time x2 each lap, CGA-> Min A for LOB Skilled Intervention: Patient was provided contact guard assistance during pre-gait/gait training to prevent falls and insure safety. Facilitated proper gait cycle with the use of verbal and visual cues for correction of gait deviations identified in the objective section above. Gait belt utilized during session for safety. Skilled judgment used to assess selection of assistive device. Billing Therapeutic Exercise Treatment Minutes: 30 Gait Training Treatment Minutes: 15 Skilled Treatment Time Minutes (timed and untimed codes): 45 Total Session Time (minutes): 45 Session Start Time : 1440 Session Stop Time : 1525 Ousmane Pro PTA documented in this encounter [facility] 08-14-2024 Note HNO ID: [id number] Author: RIVKA NARANJO OTR/L Service: ? Author Type: Occupational Therapist Type: Progress Notes Filed: 08/14/2024 15:00 Note Text: Episode Visit Count: 16 Therapist That Will Accept/Oversee The Plan Of Care: Rivka TOTH/Benton Start of Care Date: 05/24/24 Onset Date: 11/16/23 Plan of Care Certification Date: 08/14/24 Next Certification Due Date: 10/09/24 Patient Identified by Name and Date of : Yes REHABILITATION AND SPORTS THERAPY OCCUPATIONAL THERAPY PROGRESS REPORT PLAN OF CARE UPDATE: Assessment: Cabrera Sotelo demonstrates improvements in standing, walking, walking in the house, walking in the community, physical activities, recreational activities, reaching behind back, reaching overhead, cooking, dressing, grooming, feeding self, weight bearing, gripping, pinching, and pulling. The patient has progressed toward goals. Patient continues to present with impairments in ADL's, balance, coordination, independence in exercise, joint mobility, overall function, patient reported outcome measures, range of motion, sensation, strength, and symptom management that interfere with ADLs and IADLs . Current prognosis is Fair due to: clinical presentation, multiple co- morbidities, chronic nature of impairments, Prognosis may be improved by within-session changes, good support system/ coping skills. The patient will benefit from continued skilled therapy services to meet the updated goals for this plan of care as noted below. PLAN FOR NEXT VISIT: LEOLA for bicep contraction while on bike for muscle and neuro retraining; wt bearing through RUE as tolerated with close monitoring of R shoulder LTGs = 12 weeks: 1.Patient will demo decreased UE stroke related symptoms as evidenced by decreasing QuickDash disability/symptom score to 30 or less. GOAL NOT PARTIALLY MET, decreased to 36.3 2. Patient will demo improved QOL as evidenced by increasing PSFS score to 7 or greater. 3.Patient will complete community mobility at LA level or greater to increase return to PLOF. GOAL NOT PARTIALLY MET, d/c focus on driving, cont for car transfers and walking on different surfaces STGs = 6 weeks: 1.Patient will increase R hospital wellness coordinator strength to 10# or greater. GOAL MET at 12# on 08/14 GOAL UPGRADED: Patient will increase R hospital wellness coordinator strength to 20# or greater. 2. Patient will increase RUE AROM over all joints tested to 700 degrees over joints tested or greater. GOAL PARTIALLY MET, increased to 565 3.Patient and family will be IND with UB HEP. GOAL PARTIALLY MET, ongoing MET GOALS: 1.Patient will demo decreased UE stroke related symptoms as evidenced by decreasing QuickDash disability/symptom score to 75 or less. GOAL MET 06/19 with 45.4 2.Patient will increase RUE PROM over all joints tested by 100 degrees or greater. GOAL MET, increased by 140 degrees 2.Patient will demo improved QOL as evidenced by increasing PSFS score to 5 or greater. GOAL MET 07/17, increased from 1.83 to 5.3 2. Patient will increase RUE AROM over all joints tested by 100 degrees or greater. GOAL MET, increased by 115 Time Frame for Goals and Treatment : 10/09/24 Planned Interventions, Frequency, and Duration: 2x/week, 8 weeks Total Number of Visits Planned: 16 Planned Treatment Interventions: Custom orthosis fabrication, Prefabricated orthosis fitting, Therapeutic exercise (43667), Therapeutic activities (42702), Manual therapy (34880), Neuromuscular re-education (68620), Self-fdc management (78656), Sensory Integration (41112), Physical performance test, Orthotics management and training (44900,20409), Patient/Family/Caregiver Education, Functional training, Community / Work Reintegration, Ultrasound (81509), E-Stim Attended/TENS (91028), Fluidotherapy (36303) PLAN FOR NEXT VISIT: NMES for bicep contraction while on bike for muscle and neuro retraining; wt bearing through RUE as tolerated with close monitoring of R shoulder SUBJECTIVE: Completed 30 day progress report this date. Pt reported he went to opthamologist on Wednesday who indicated pt needed to see retinal specialist. Retinal specialist indicated Pt has tunnel vision, and vessels in eyes are narrowing, therefore said Pt should not drive. Got prescription for glasses that needs filled. Indicated Pt could go blind at any time. As long as Pt is on Plavix he should be ok. Spouse reported Pt loses Medicaid on 08/18 though has Medicare. Discussed plan moving forward with spouse and PSS with [facility] to keep in close communication with Medicare and this clinic to support as much as possible and ensure limited to no financial burden as Pt can cont to benefit from OT and family would like him to cont as gains are evident to them. Pain: Pain Pain Level: 0 Post Treatment Pain Post Treatment Pain Level: 0 PROMIS Scales 07/26/2024 07/10/2024 06/28/2024 Higher is Better Phys Func - T Score 30 (moderate dysfunction) Phys Fu (more content not included)... [facility] 08-14-2024 History of Present illness Narrative Images from the original note were not included. Episode Visit Count: 16 Therapist That Will Accept/Oversee The Plan Of Care: Rivka TOTH/Benton Start of Care Date: 05/24/24 Onset Date: 11/16/23 Plan of Care Certification Date: 08/14/24 Next Certification Due Date: 10/09/24 Patient Identified by Name and Date of : Yes REHABILITATION AND SPORTS THERAPY OCCUPATIONAL THERAPY PROGRESS REPORT PLAN OF CARE UPDATE: Assessment: Cabrera Sotelo demonstrates improvements in standing, walking, walking in the house, walking in the community, physical activities, recreational activities, reaching behind back, reaching overhead, cooking, dressing, grooming, feeding self, weight bearing, gripping, pinching, and pulling. The patient has progressed toward goals. Patient continues to present with impairments in ADL's, balance, coordination, independence in exercise, joint mobility, overall function, patient reported outcome measures, range of motion, sensation, strength, and symptom management that interfere with ADLs and IADLs . Current prognosis is Fair due to: clinical presentation, multiple co- morbidities, chronic nature of impairments, Prognosis may be improved by within-session changes, good support system/ coping skills. The patient will benefit from continued skilled therapy services to meet the updated goals for this plan of care as noted below. PLAN FOR NEXT VISIT: NMES for bicep contraction while on bike for muscle and neuro retraining; wt bearing through RUE as tolerated with close monitoring of R shoulder LTGs = 12 weeks: 1.Patient will demo decreased UE stroke related symptoms as evidenced by decreasing QuickDash disability/symptom score to 30 or less. GOAL NOT PARTIALLY MET, decreased to 36.3 2. Patient will demo improved QOL as evidenced by increasing PSFS score to 7 or greater. 3.Patient will complete community mobility at LA level or greater to increase return to PLOF. GOAL NOT PARTIALLY MET, d/c focus on driving, cont for car transfers and walking on different surfaces STGs = 6 weeks: 1.Patient will increase R hospital wellness coordinator strength to 10# or greater. GOAL MET at 12# on 08/14 GOAL UPGRADED: Patient will increase R hospital wellness coordinator strength to 20# or greater. 2. Patient will increase RUE AROM over all joints tested to 700 degrees over joints tested or greater. GOAL PARTIALLY MET, increased to 565 3.Patient and family will be IND with UB HEP. GOAL PARTIALLY MET, ongoing MET GOALS: 1.Patient will demo decreased UE stroke related symptoms as evidenced by decreasing QuickDash disability/symptom score to 75 or less. GOAL MET 06/19 with 45.4 2.Patient will increase RUE PROM over all joints tested by 100 degrees or greater. GOAL MET, increased by 140 degrees 2.Patient will demo improved QOL as evidenced by increasing PSFS score to 5 or greater. GOAL MET 07/17, increased from 1.83 to 5.3 2. Patient will increase RUE AROM over all joints tested by 100 degrees or greater. GOAL MET, increased by 115 Time Frame for Goals and Treatment : 10/09/24 Planned Interventions, Frequency, and Duration: 2x/week, 8 weeks Total Number of Visits Planned: 16 Planned Treatment Interventions: Custom orthosis fabrication, Prefabricated orthosis fitting, Therapeutic exercise (96244), Therapeutic activities (69387), Manual therapy (21873), Neuromuscular re-education (12082), Self-fdc management (94149), Sensory Integration (55498), Physical performance test, Orthotics management and training (70894,29474), Patient/Family/Caregiver Education, Functional training, Community / Work Reintegration, Ultrasound (34335), E-Stim Attended/TENS (07213), Fluidotherapy (36810) PLAN FOR NEXT VISIT: NMES for bicep contraction while on bike for muscle and neuro retraining; wt bearing through RUE as tolerated with close monitoring of R shoulder SUBJECTIVE: Completed 30 day progress report this date. Pt reported he went to opthamologist on Wednesday who indicated pt needed to see retinal specialist. Retinal specialist indicated Pt has tunnel vision, and vessels in eyes are narrowing, therefore said Pt should not drive. Got prescription for glasses that needs filled. Indicated Pt could go blind at any time. As long as Pt is on Plavix he should be ok. Spouse reported Pt loses Medicaid on 08/18 though has Medicare. Discussed plan moving forward with spouse and PSS with [facility] to keep in close communication with Medicare and this clinic to support as much as possible and ensure limited to no financial burden as Pt can cont to benefit from OT and family would like him to cont as gains are evident to them. Pain: Pain Pain Level: 0 Post Treatment Pain Post Treatment Pain Level: 0 PROMIS Scales 07/26/2024 07/10/2024 06/28/2024 Higher is Better Phys Func - T Score 30 (moderate dysfunction) Phys Func - Percentile 2 Self-Eff Symptom - T Score 41 (Average) 43 (Average) Self-Eff Symptom - Percentile 18 24 Mobility - T Score 37 (moderate dysfunction) 28 (severe dysfunction) Mobility - Percentile 10 1 Upper Extremity - T Score 27 (severe dysfunction) 26 (severe dysfunction) Upper Extremity - Percentile 1 1 Proxy-reported T-scores: mean of general population = 50. 5 points is clinically meaningfully difference Percentiles provide an indication of how the patient's score ranks in relation to the general population. Higher percentile rankings indicate better function/quality of life. 50th percentile is the average of the general population and indicates half of respondents had a worse score. OBJECTIVE MEASURES WITH LEVEL OF FUNCTION: PSFS: cooking- 8, donning shoes- 8, washing/drying back- 8, getting to shop- 6, using guitar- 1, mechanical work- 4, t= 5.8 QuickDash disability/symptom score: 36.3 Hand Strength R Sock Folder Position 2 (lbs): 12 lbs L Sock Folder Position 2 (lbs): 72 lbs UE AROM R Shoulder Extension: 50 Degrees R Shoulder Flex: 35 Degrees R Shoulder ABduction: 55 Degrees R Elbow Extension: 160 Degrees R Elbow Flexion: 95 Degrees R Forearm Supination: 40 Degrees R Forearm Pronation: 70 Degrees R Wrist Extension: 0 Degrees R Wrist Flexion: 40 Degrees R Wrist Radial Deviation: 10 Degrees R Wrist Ulnar Deviation: 10 Degrees TREATMENT: Therapeutic Activity: 1: Completed progress report this date for collaborative review of goals to ensure client-centered care. Pt reported feeling he has made most gains this reporting period in areas of walking, opening jars, cutting food/using a knife, and ability to roll over in bed. Pt reported feeling he req's most gains in cont'd movement and use of hand. Pt reported feeling hand wants to move though wants to cont working for active movement and use of hand. Edu provided to trial any activity with guitar for 15min daily to engage limbic system for neuroplasticity and via valued task. Pt and spouse in agreement. Trialed rolling supine<>prone with prone push ups as much as achievable for proprioception to RUE. Edu to only trial this in therapy at this time to ensure joint integrity prior to incorporating into home programming. Pt and familty stated understanding. Discussed with family increasing intensity of home programming in case of need for d/c d/t financial burden, though Pt can cont to benefit from skilled OT services to make most of neuro recovery window. Skilled Intervention: Educated on proper/safe technique for activities performed today. Activity progression based on professional judgment. Billing Therapeutic Activity Treatment Minutes: 55 Skilled Treatment Time Minutes (timed and untimed codes): 55 Total Session Time (minutes): 55 Session Start Time : 1335 Session Stop Time : 1430 RHYS [place] documented in this encounter [facility] 08-07-2024 Note HNO ID: [id number] Author: OUSMANE PRO PTA Service: ? Author Type: Bookbinder Apprentice Type: Progress Notes Filed: 08/07/2024 15:33 Note Text: Episode Visit Count: 10 Therapist That Will Accept/Oversee The Plan Of Care: Crystal Dai Start of Care Date: 06/19/24 Onset Date: (approx 10/20/2023) Plan of Care Certification Date: 06/20/25 Next Certification Due Date: 09/07/24 Patient Identified by Name and Date of : Yes REHABILITATION AND SPORTS THERAPY PHYSICAL THERAPY TREATMENT NOTE ASSESSMENT: Cabrera Sotelo tolerated the session with fatigue and no issues. He demonstrated improvements in right lower extremity knee and hip flexion when ambulating this session. The patient will continue to benefit from ongoing skilled physical therapy to progress toward set goals. PLAN FOR NEXT VISIT: Continue LE strengthening, balance and gait training. Patient ambulate into clinic with quad cane when able. SUBJECTIVE: Patient reports his family was very sick last week but feeling much better now. Patient notes his knee has not been giving out anymore. Patient ambulated into therapy with large base quad cane, no wheelchair Pain: Pain Pain Level: 0 Post Treatment Pain Post Treatment Pain Level: 0 OBJECTIVE MEASURES WITH LEVEL OF FUNCTION: There were no objective measurements taken on this date. See assessment for patient response to treatment. TREATMENT: Therapeutic Exercise: 1: Nustep L3 x6' with 3- 30sec fast intervals for increaased endurance and RLE strength (cues to not let hip fall into ER) 2: seated LAQ with green TB x20 3: seated hamstring curls with green TB x20 4: standing weight shifts onto RLE with emphasis on quad control x10 5: standing stepping over cone lateral and forward x10 Min A for increased hip flexion 6: Seated with RLE on red ball- combined motion ankle DF, knee flexion, hip flexion x10 7: LP (4) 6pl x20 with emphasis on eccentric quad control 8: 4 step ups x5 and step downs with RLE x5 CGA to block RLE from excessive genu recuvatum Skilled Intervention: Patient was educated in proper exercise technique and purpose for exercises. Skilled judgment was used in selection of appropriate interventions. Correct performance of therapeutic exercises was facilitated with verbal and visual cuing. Billing Therapeutic Exercise Treatment Minutes: 42 Skilled Treatment Time Minutes (timed and untimed codes): 42 Total Session Time (minutes): 42 Session Start Time : 1445 Session Stop Time : 1527 Ousmane Pro [facility] 08-07-2024 History of Present illness Narrative Episode Visit Count: 10 Therapist That Will Accept/Oversee The Plan Of Care: Crystal Dai Start of Care Date: 06/19/24 Onset Date: (approx 10/20/2023) Plan of Care Certification Date: 06/20/25 Next Certification Due Date: 09/07/24 Patient Identified by Name and Date of : Yes REHABILITATION AND SPORTS THERAPY PHYSICAL THERAPY TREATMENT NOTE ASSESSMENT: Cabrera Sotelo tolerated the session with fatigue and no issues. He demonstrated improvements in right lower extremity knee and hip flexion when ambulating this session. The patient will continue to benefit from ongoing skilled physical therapy to progress toward set goals. PLAN FOR NEXT VISIT: Continue LE strengthening, balance and gait training. Patient ambulate into clinic with quad cane when able. SUBJECTIVE: Patient reports his family was very sick last week but feeling much better now. Patient notes his knee has not been giving out anymore. Patient ambulated into therapy with large base quad cane, no wheelchair Pain: Pain Pain Level: 0 Post Treatment Pain Post Treatment Pain Level: 0 OBJECTIVE MEASURES WITH LEVEL OF FUNCTION: There were no objective measurements taken on this date. See assessment for patient response to treatment. TREATMENT: Therapeutic Exercise: 1: Nustep L3 x6' with 3- 30sec fast intervals for increaased endurance and RLE strength (cues to not let hip fall into ER) 2: seated LAQ with green TB x20 3: seated hamstring curls with green TB x20 4: standing weight shifts onto RLE with emphasis on quad control x10 5: standing stepping over cone lateral and forward x10 Min A for increased hip flexion 6: Seated with RLE on red ball- combined motion ankle DF, knee flexion, hip flexion x10 7: LP (4) 6pl x20 with emphasis on eccentric quad control 8: 4 step ups x5 and step downs with RLE x5 CGA to block RLE from excessive genu recuvatum Skilled Intervention: Patient was educated in proper exercise technique and purpose for exercises. Skilled judgment was used in selection of appropriate interventions. Correct performance of therapeutic exercises was facilitated with verbal and visual cuing. Billing Therapeutic Exercise Treatment Minutes: 42 Skilled Treatment Time Minutes (timed and untimed codes): 42 Total Session Time (minutes): 42 Session Start Time : 1445 Session Stop Time : 1527 Ousmane Pro PTA documented in this encounter [facility] 08-07-2024 Note HNO ID: [id number] Author: RIVKA NARANJO OTR/Benton Service: ? Author Type: Occupational Therapist Type: Progress Notes Filed: 08/07/2024 15:20 Note Text: Episode Visit Count: 15 Therapist That Will Accept/Oversee The Plan Of Care: Rivka Naranjo OTR/Benton Start of Care Date: 05/24/24 Onset Date: 11/16/23 Plan of Care Certification Date: 05/24/24 Next Certification Due Date: 08/16/24 Patient Identified by Name and Date of : Yes REHABILITATION AND SPORTS THERAPY OCCUPATIONAL THERAPY TREATMENT NOTE ASSESSMENT: Cabrera Sotelo tolerated the session with no issues. He demonstrated improvements in tolerance for motion and effort from RUE. The patient will continue to benefit from ongoing skilled occupational therapy to progress toward set goals. PLAN FOR NEXT VISIT: NMES for bicep contraction while on bike for muscle and neuro retraining SUBJECTIVE: Pt reported he has been going to the chripractor where they apply TENS, though this is unsupervised where they place per Pt on wrist flexors, extensors, at elbow, biceps, and triceps then leave the room. Pain: Pain Pain Level: 0 Post Treatment Pain Post Treatment Pain Level: 0 OBJECTIVE MEASURES WITH LEVEL OF FUNCTION: TREATMENT: Neuromuscular Re-Education: 1: Pt reported feeling ready to trial UBE machine for cycle motion of RUE. Reported he trialed elliptical with PT and reach was too much and caused pain. Used NMES with 1st two points placed along medial border of scapula and below inferior angle of scapula. 2nd points placed below spine of scapula and below head of humerus. Intensity at 40 for both channels. On in conjunction with cycle for stimulating shoulder in retraction and elevation for sublux correction for joint integrity during cycle. Increased time to wrap R hand to assist with maintaining grasp on handle, unable to locate LACY wrap, used theraband with corrections PRN. Cycle time 10min broken in 2 sets of 5 with shoulder stabilized to prevent compensatory movement patterns and facilitate typical patterns for neuroplasticity, attending to RUE for inhibition of ATNR patterns. Pt donned shirt at EOS with min A, reported increased ease of movement and no pain during cycle. Collaborative formation of plan for next visit to focus on bicep contraction. Skilled Intervention: Skilled judgment used to assess appropriate program for balance and coordination activity. Education and demonstration for posture and positioning for tone management. Patient education as noted. Billing Neuromuscular Re-Education Treatment Minutes: 55 Skilled Treatment Time Minutes (timed and untimed codes): 55 Total Session Time (minutes): 55 Session Start Time : 1345 Session Stop Time : 1440 RHYS [place] [facility] 08-07-2024 History of Present illness Narrative Episode Visit Count: 15 Therapist That Will Accept/Oversee The Plan Of Care: Rivka JOINER Start of Care Date: 05/24/24 Onset Date: 11/16/23 Plan of Care Certification Date: 05/24/24 Next Certification Due Date: 08/16/24 Patient Identified by Name and Date of : Yes REHABILITATION AND SPORTS THERAPY OCCUPATIONAL THERAPY TREATMENT NOTE ASSESSMENT: Cabrera Sotelo tolerated the session with no issues. He demonstrated improvements in tolerance for motion and effort from RUE. The patient will continue to benefit from ongoing skilled occupational therapy to progress toward set goals. PLAN FOR NEXT VISIT: NMES for bicep contraction while on bike for muscle and neuro retraining SUBJECTIVE: Pt reported he has been going to the chripractor where they apply TENS, though this is unsupervised where they place per Pt on wrist flexors, extensors, at elbow, biceps, and triceps then leave the room. Pain: Pain Pain Level: 0 Post Treatment Pain Post Treatment Pain Level: 0 OBJECTIVE MEASURES WITH LEVEL OF FUNCTION: TREATMENT: Neuromuscular Re-Education: 1: Pt reported feeling ready to trial UBE machine for cycle motion of RUE. Reported he trialed elliptical with PT and reach was too much and caused pain. Used NMES with 1st two points placed along medial border of scapula and below inferior angle of scapula. 2nd points placed below spine of scapula and below head of humerus. Intensity at 40 for both channels. On in conjunction with cycle for stimulating shoulder in retraction and elevation for sublux correction for joint integrity during cycle. Increased time to wrap R hand to assist with maintaining grasp on handle, unable to locate LACY wrap, used theraband with corrections PRN. Cycle time 10min broken in 2 sets of 5 with shoulder stabilized to prevent compensatory movement patterns and facilitate typical patterns for neuroplasticity, attending to RUE for inhibition of ATNR patterns. Pt donned shirt at EOS with min A, reported increased ease of movement and no pain during cycle. Collaborative formation of plan for next visit to focus on bicep contraction. Skilled Intervention: Skilled judgment used to assess appropriate program for balance and coordination activity. Education and demonstration for posture and positioning for tone management. Patient education as noted. Billing Neuromuscular Re-Education Treatment Minutes: 55 Skilled Treatment Time Minutes (timed and untimed codes): 55 Total Session Time (minutes): 55 Session Start Time : 1345 Session Stop Time : 1440 RHYS Hastings documented in this encounter [facility] 07-31-2024 Note HNO ID: [id number] Author: OUSMANE PRO PTA Service: ? Author Type: Bookbinder Apprentice Type: Progress Notes Filed: 07/31/2024 15:37 Note Text: Episode Visit Count: 9 Therapist That Will Accept/Oversee The Plan Of Care: Crystal Dai Start of Care Date: 06/19/24 Onset Date: (approx 10/20/2023) Plan of Care Certification Date: 06/20/25 Next Certification Due Date: 09/07/24 Patient Identified by Name and Date of : Yes REHABILITATION AND SPORTS THERAPY PHYSICAL THERAPY TREATMENT NOTE ASSESSMENT: Cabrera Tod Aris tolerated the session with no issues. He demonstrated improvements in quad control with right quad focused exercises for total knee extension when ambulating. The patient will continue to benefit from ongoing skilled physical therapy to progress toward set goals. PLAN FOR NEXT VISIT: Continue LE strengthening, balance and gait training. Patient ambulate into clinic with quad cane when able. SUBJECTIVE: Patient reports his right knee has been giving out the last couple days. He did not walk into therapy due to the weakness in his quad. Pain: Pain Pain Level: 0 Post Treatment Pain Post Treatment Pain Level: 0 OBJECTIVE MEASURES WITH LEVEL OF FUNCTION: There were no objective measurements taken on this date. See assessment for patient response to treatment. TREATMENT: Therapeutic Exercise: 1: seated resisted LAQ with green TB anchored at leg of chair x20 2: seated LAQ no resistance with 5 holds 2x10 3: standing tke with green TB 2x10 4: standing weight shifts onto RLE with emphasis on quad control x10 5: standing resisted march with yellow TB 2x10 Skilled Intervention: Patient was educated in proper exercise technique and purpose for exercises. Skilled judgment was used in selection of appropriate interventions. Provided written instruction for home exercise program to facilitate proper performance and compliance. Correct performance of therapeutic exercises was facilitated with verbal and visual cuing. Gait Trainin: 60ft x2 with large base quad cane CGA with cues for hip and knee flexion Skilled Intervention: Patient was provided contact guard assistance during pre-gait/gait training to prevent falls and insure safety. Facilitated proper gait cycle with the use of verbal and visual cues for correction of gait deviations identified in the objective section above. Gait belt utilized during session for safety. Skilled judgment used to assess proper use of assistive device. Billing Therapeutic Exercise Treatment Minutes: 30 Gait Training Treatment Minutes: 10 Skilled Treatment Time Minutes (timed and untimed codes): 40 Total Session Time (minutes): 40 Session Start Time : 1445 Session Stop Time : 1525 Ousmane Pro [facility] 07-31-2024 History of Present illness Narrative Episode Visit Count: 9 Therapist That Will Accept/Oversee The Plan Of Care: Crystal Dai Start of Care Date: 06/19/24 Onset Date: (approx 10/20/2023) Plan of Care Certification Date: 06/20/25 Next Certification Due Date: 09/07/24 Patient Identified by Name and Date of : Yes REHABILITATION AND SPORTS THERAPY PHYSICAL THERAPY TREATMENT NOTE ASSESSMENT: Cabrera Tod Aris tolerated the session with no issues. He demonstrated improvements in quad control with right quad focused exercises for total knee extension when ambulating. The patient will continue to benefit from ongoing skilled physical therapy to progress toward set goals. PLAN FOR NEXT VISIT: Continue LE strengthening, balance and gait training. Patient ambulate into clinic with quad cane when able. SUBJECTIVE: Patient reports his right knee has been giving out the last couple days. He did not walk into therapy due to the weakness in his quad. Pain: Pain Pain Level: 0 Post Treatment Pain Post Treatment Pain Level: 0 OBJECTIVE MEASURES WITH LEVEL OF FUNCTION: There were no objective measurements taken on this date. See assessment for patient response to treatment. TREATMENT: Therapeutic Exercise: 1: seated resisted LAQ with green TB anchored at leg of chair x20 2: seated LAQ no resistance with 5 holds 2x10 3: standing tke with green TB 2x10 4: standing weight shifts onto RLE with emphasis on quad control x10 5: standing resisted march with yellow TB 2x10 Skilled Intervention: Patient was educated in proper exercise technique and purpose for exercises. Skilled judgment was used in selection of appropriate interventions. Provided written instruction for home exercise program to facilitate proper performance and compliance. Correct performance of therapeutic exercises was facilitated with verbal and visual cuing. Gait Trainin: 60ft x2 with large base quad cane CGA with cues for hip and knee flexion Skilled Intervention: Patient was provided contact guard assistance during pre-gait/gait training to prevent falls and insure safety. Facilitated proper gait cycle with the use of verbal and visual cues for correction of gait deviations identified in the objective section above. Gait belt utilized during session for safety. Skilled judgment used to assess proper use of assistive device. Billing Therapeutic Exercise Treatment Minutes: 30 Gait Training Treatment Minutes: 10 Skilled Treatment Time Minutes (timed and untimed codes): 40 Total Session Time (minutes): 40 Session Start Time : 1445 Session Stop Time : 1525 Ousmane Pro PTA Program_ID:[id number] Access Code: [email or web address] URL: [email or web address] Date: 07-31-2024 Prepared By: CRYSTAL DAI Program Notes Exercises - Seated March - x daily - 7 x weekly - 3 sets - 5-8 reps - Forward and Backward Stepping at Pool Wall - x daily - 7 x weekly - sets - reps - Sitting Knee Extension with Resistance - 1 x daily - 7 x weekly - 2 sets - 10 reps - Seated Long Arc Quad - 1 x daily - 7 x weekly - 2 sets - 10 reps - Supine Quad Set - 1 x daily - 7 x weekly - 2 sets - 10 reps - Standing Terminal Knee Extension with Resistance - 1 x daily - 7 x weekly - 2 sets - 10 reps - Marching with Resistance - 1 x daily - 7 x weekly - 2 sets - 10 reps - Side to Side Weight Shift with Counter Support - 1 x daily - 7 x weekly - 2 sets - 10 reps Patient Education - Adaptive Equipment for Eating - Using a [place] Cuff documented in this encounter [facility] 07-31-2024 Note HNO ID: [id number] Author: YANNA DURANT OTA/L Service: ? Author Type: Dairy Management Specialist Type: Progress Notes Filed: 08/02/2024 16:37 Note Text: Episode Visit Count: 14 Therapist That Will Accept/Oversee The Plan Of Care: Rivka TOTH/Benton Start of Care Date: 05/24/24 Onset Date: 11/16/23 Plan of Care Certification Date: 05/24/24 Next Certification Due Date: 08/16/24 Patient Identified by Name and Date of : Yes REHABILITATION AND SPORTS THERAPY OCCUPATIONAL THERAPY TREATMENT NOTE ASSESSMENT: Cabrera Sotelo tolerated the session with expected muscle soreness. He demonstrated difficulty with self feeding , hand to mouth pattern and improvements in home program completion and bathing self . The patient will continue to benefit from ongoing skilled occupational therapy to progress toward set goals. PLAN FOR NEXT VISIT: Continue to trial hospital wellness coordinator strengthening techniques, tracing for increase in handwriting skills SUBJECTIVE: Pt reported that he has improved with bathing himself at home, he is fully independent and able to dress himself and bathe himself Pain: OBJECTIVE MEASURES WITH LEVEL OF FUNCTION: No measurements taken TREATMENT: Neuromuscular Re-Education: 1: NMES education , use of his newly purchsed device, focus on thumb opposition. the pt the patient was assisted with electrode placement the negative electrode placed on the lateral border of the thenar eminence. The positive electrode was placed on the dorsal or forearm just proximal to the wrist 2: putty ther ex reviewed 3: supination pronation , place and hold 4: elbow flex ext 5: aarom elbow extension 6: reviewed mirror therapy , education on strategies Skilled Intervention: Patient education as noted. Billing Neuromuscular Re-Education Treatment Minutes: 45 Skilled Treatment Time Minutes (timed and untimed codes): 45 Total Session Time (minutes): 45 Session Start Time : 1345 Session Stop Time : 1430 MARYLU Barcenas [facility] 07-31-2024 History of Present illness Narrative Episode Visit Count: 14 Therapist That Will Accept/Oversee The Plan Of Care: Rivka TOTH/Benton Start of Care Date: 05/24/24 Onset Date: 11/16/23 Plan of Care Certification Date: 05/24/24 Next Certification Due Date: 08/16/24 Patient Identified by Name and Date of : Yes REHABILITATION AND SPORTS THERAPY OCCUPATIONAL THERAPY TREATMENT NOTE ASSESSMENT: Cabrera Sotelo tolerated the session with expected muscle soreness. He demonstrated difficulty with self feeding , hand to mouth pattern and improvements in home program completion and bathing self . The patient will continue to benefit from ongoing skilled occupational therapy to progress toward set goals. PLAN FOR NEXT VISIT: Continue to trial hospital wellness coordinator strengthening techniques, tracing for increase in handwriting skills SUBJECTIVE: Pt reported that he has improved with bathing himself at home, he is fully independent and able to dress himself and bathe himself Pain: OBJECTIVE MEASURES WITH LEVEL OF FUNCTION: No measurements taken TREATMENT: Neuromuscular Re-Education: 1: NMES education , use of his newly purchsed device, focus on thumb opposition. the pt the patient was assisted with electrode placement the negative electrode placed on the lateral border of the thenar eminence. The positive electrode was placed on the dorsal or forearm just proximal to the wrist 2: putty ther ex reviewed 3: supination pronation , place and hold 4: elbow flex ext 5: aarom elbow extension 6: reviewed mirror therapy , education on strategies Skilled Intervention: Patient education as noted. Billing Neuromuscular Re-Education Treatment Minutes: 45 Skilled Treatment Time Minutes (timed and untimed codes): 45 Total Session Time (minutes): 45 Session Start Time : 1345 Session Stop Time : 1430 MARYLU Barcenas documented in this encounter [facility] 07-26-2024 Note HNO ID: [id number] Author: YANNA VANCE OTA/L Service: ? Author Type: Dairy Management Specialist Type: Progress Notes Filed: 07/26/2024 17:11 Note Text: Episode Visit Count: 13 Therapist That Will Accept/Oversee The Plan Of Care: Rivka [place] OTR/L Start of Care Date: 05/24/24 Onset Date: 11/16/23 Plan of Care Certification Date: 05/24/24 Next Certification Due Date: 08/16/24 Patient Identified by Name and Date of : Yes REHABILITATION AND SPORTS THERAPY OCCUPATIONAL THERAPY TREATMENT NOTE ASSESSMENT: Cabrera Sotelo tolerated the session with no issues. He demonstrated improvements in ability to initiate fisting. The patient will continue to benefit from ongoing skilled occupational therapy to progress toward set goals. PLAN FOR NEXT VISIT: Continue to trial hospital wellness coordinator strengthening techniques, tracing for increase in handwriting skills SUBJECTIVE: Patient does not want to address TENS unit this session as he states that he has been doing this at the chiropractor and it has been helpful. He has also scheduled an appointment with a massage therapist that will be completed this evening. The patient plans to begin attending a gym and hiring a field trainer for the remainder of this month as he was approved for social security benefits and therefore has found himself in a better place financially and reportedly can now afford a membership. The patient reports that he has been waiting for home health orthodontic assistant for over 5 months now and has given up as the last 1 did not show up and has not returned he would like to address feeding himself with a spoon and handwriting if possible he is also interested in pursuing aquatic therapy upon discussion with WINDOW REPAIRER at this time the patient isbenefiting from land therapy however will discuss again at a future date. Pt expresses concern over function in RUE but notes progress AEB able to elevate R shoulder, maintain arm on armrest of chair , and slowly hospital wellness coordinator putty. Pain: Pain Pain Level: 0 Post Treatment Pain Post Treatment Pain Level: 0 OBJECTIVE MEASURES WITH LEVEL OF FUNCTION: TREATMENT: Neuromuscular Re-Education: 1: continued use of mirror therapy for potential movement actively and passively, ROM to RUE including shoulder/elbow/hand passive and active combined with proprioceptive input for increased strength, ROM, and sensation for fx use of RUE. 2: assessed hospital wellness coordinator against putty and adaptive devices for validated progress to patient. Skilled Intervention: Patient education as noted. Billing Neuromuscular Re-Education Treatment Minutes: 40 Total Session Time (minutes): 40 Session Start Time : 1355 Session Stop Time : 1435 CUCA Shah/Benton [facility] 02-05-2025 History of Present illness Narrative Episode Visit Count: 13 Therapist That Will Accept/Oversee The Plan Of Care: Rivka TOTH/Benton Start of Care Date: 05/24/24 Onset Date: 11/16/23 Plan of Care Certification Date: 05/24/24 Next Certification Due Date: 08/16/24 Patient Identified by Name and Date of : Yes REHABILITATION AND SPORTS THERAPY OCCUPATIONAL THERAPY TREATMENT NOTE ASSESSMENT: Cabrera Sotelo tolerated the session with no issues. He demonstrated improvements in ability to initiate fisting. The patient will continue to benefit from ongoing skilled occupational therapy to progress toward set goals. PLAN FOR NEXT VISIT: Continue to trial hospital wellness coordinator strengthening techniques, tracing for increase in handwriting skills SUBJECTIVE: Patient does not want to address TENS unit this session as he states that he has been doing this at the chiropractor and it has been helpful. He has also scheduled an appointment with a massage therapist that will be completed this evening. The patient plans to begin attending a gym and hiring a field trainer for the remainder of this month as he was approved for social security benefits and therefore has found himself in a better place financially and reportedly can now afford a membership. The patient reports that he has been waiting for home health orthodontic assistant for over 5 months now and has given up as the last 1 did not show up and has not returned he would like to address feeding himself with a spoon and handwriting if possible he is also interested in pursuing aquatic therapy upon discussion with WINDOW REPAIRER at this time the patient is benefiting from land therapy however will discuss again at a future date. Pt expresses concern over function in RUE but notes progress AEB able to elevate R shoulder, maintain arm on armrest of chair , and slowly hospital wellness coordinator putty. Pain: Pain Pain Level: 0 Post Treatment Pain Post Treatment Pain Level: 0 OBJECTIVE MEASURES WITH LEVEL OF FUNCTION: TREATMENT: Neuromuscular Re-Education: 1: continued use of mirror therapy for potential movement actively and passively, ROM to RUE including shoulder/elbow/hand passive and active combined with proprioceptive input for increased strength, ROM, and sensation for fx use of RUE. 2: assessed hospital wellness coordinator against putty and adaptive devices for validated progress to patient. Skilled Intervention: Patient education as noted. Billing Neuromuscular Re-Education Treatment Minutes: 40 Total Session Time (minutes): 40 Session Start Time : 1355 Session Stop Time : 1435 MARYLU Shah documented in this encounter [facility] 07-26-2024 Note HNO ID: [id number] Author: OUSMANE PRO PTA Service: ? Author Type: Bookbinder Apprentice Type: Progress Notes Filed: 07/26/2024 15:49 Note Text: Episode Visit Count: 8 Therapist That Will Accept/Oversee The Plan Of Care: Crystal Dai Start of Care Date: 06/19/24 Onset Date: (approx 10/20/2023) Plan of Care Certification Date: 06/20/25 Next Certification Due Date: 09/07/24 Patient Identified by Name and Date of : Yes REHABILITATION AND SPORTS THERAPY PHYSICAL THERAPY TREATMENT NOTE ASSESSMENT: Cabrera Sotelo tolerated the session with fatigue and no issues. He demonstrated right quad fatigue with step ups . The patient will continue to benefit from ongoing skilled physical therapy to progress toward set goals. PLAN FOR NEXT VISIT: Continue LE strengthening, balance and gait training. Patient ambulate into next session with quad cane, no w/c SUBJECTIVE: Patient reports he was taken off his sugar pill and put on a new blood pressure medication Pain: Pain Pain Level: 0 Post Treatment Pain Post Treatment Pain Level: 0 OBJECTIVE MEASURES WITH LEVEL OF FUNCTION: There were no objective measurements taken on this date. See assessment for patient response to treatment. Vitals BP: 130/85 Pulse: 65 SpO2: 99 % RPE / Modified GIRISH Scale: 8 (after ambulation bouts) Target HRR and HR Max Calculator: Yes Max Heart Rate: 170 TREATMENT: Therapeutic Exercise: 1: Seated w/ R LE on 55 cm ( orange ) ball: 2: -R hip extension 3 sec x 12 3: -R hip abd/add w/ knee x 12 4: -R HS curl isometric into 3 sec x 12 5: -R DF with knee in flexion x10 8: 6 step ups x10 with therapist blocking RLE from excessive genu recuvatum and for descending quad control 10: Arc canine service instructor trainer 0 incline no resistance x5 minutes, RUE supported on stationary handrail. RPE 5 Skilled Intervention: Patient was educated in proper exercise technique and purpose for exercises. Skilled judgment was used in selection of appropriate interventions. Correct performance of therapeutic exercises was facilitated with verbal and visual cuing. Gait Training: Distance (feet): 30' x 4 Gait Cues: hip and knee flexion and DF of RLE Assistive Device: small base quad cane, therapist assist on RUE with cues for WB through RUE Assist Level: CGA with cues for WB through RUE for gait symetry Orthotic: no AFO 1: endurance biased gait with emhasis on mechanics during normal kassidy and safety during cues for high speed 2: -30' x 4 encouraging fast stepping while allowing weight bearing through R elbow w/ WINDOW REPAIRER assist Skilled Intervention: Patient was provided minimal assistance, contact guard assistance during pre-gait/gait training to prevent falls and insure safety. Facilitated proper gait cycle with the use of verbal and visual cues for correction of gait deviations identified in the objective section above. Gait belt utilized during session for safety. Skilled judgment used to assess selection and proper use of assistive device. Billing Therapeutic Exercise Treatment Minutes: 25 Gait Training Treatment Minutes: 15 Skilled Treatment Time Minutes (timed and untimed codes): 40 Total Session Time (minutes): 40 Session Start Time : 1445 Session Stop Time : 1525 Ousmane Pro PTA [facility] 07-26-2024 History of Present illness Narrative Episode Visit Count: 8 Therapist That Will Accept/Oversee The Plan Of Care: Crystal Dai Start of Care Date: 06/19/24 Onset Date: (approx 10/20/2023) Plan of Care Certification Date: 06/20/25 Next Certification Due Date: 09/07/24 Patient Identified by Name and Date of : Yes REHABILITATION AND SPORTS THERAPY PHYSICAL THERAPY TREATMENT NOTE ASSESSMENT: Cabrera Sotelo tolerated the session with fatigue and no issues. He demonstrated right quad fatigue with step ups . The patient will continue to benefit from ongoing skilled physical therapy to progress toward set goals. PLAN FOR NEXT VISIT: Continue LE strengthening, balance and gait training. Patient ambulate into next session with quad cane, no w/c SUBJECTIVE: Patient reports he was taken off his sugar pill and put on a new blood pressure medication Pain: Pain Pain Level: 0 Post Treatment Pain Post Treatment Pain Level: 0 OBJECTIVE MEASURES WITH LEVEL OF FUNCTION: There were no objective measurements taken on this date. See assessment for patient response to treatment. Vitals BP: 130/85 Pulse: 65 SpO2: 99 % RPE / Modified GIRISH Scale: 8 (after ambulation bouts) Target HRR and HR Max Calculator: Yes Max Heart Rate: 170 TREATMENT: Therapeutic Exercise: 1: Seated w/ R LE on 55 cm ( orange ) ball: 2: -R hip extension 3 sec x 12 3: -R hip abd/add w/ knee x 12 4: -R HS curl isometric into 3 sec x 12 5: -R DF with knee in flexion x10 8: 6 step ups x10 with therapist blocking RLE from excessive genu recuvatum and for descending quad control 10: Arc canine service instructor trainer 0 incline no resistance x5 minutes, RUE supported on stationary handrail. RPE 5 Skilled Intervention: Patient was educated in proper exercise technique and purpose for exercises. Skilled judgment was used in selection of appropriate interventions. Correct performance of therapeutic exercises was facilitated with verbal and visual cuing. Gait Training: Distance (feet): 30' x 4 Gait Cues: hip and knee flexion and DF of RLE Assistive Device: small base quad cane, therapist assist on RUE with cues for WB through RUE Assist Level: CGA with cues for WB through RUE for gait symetry Orthotic: no AFO 1: endurance biased gait with emhasis on mechanics during normal kassidy and safety during cues for high speed 2: -30' x 4 encouraging fast stepping while allowing weight bearing through R elbow w/ WINDOW REPAIRER assist Skilled Intervention: Patient was provided minimal assistance, contact guard assistance during pre-gait/gait training to prevent falls and insure safety. Facilitated proper gait cycle with the use of verbal and visual cues for correction of gait deviations identified in the objective section above. Gait belt utilized during session for safety. Skilled judgment used to assess selection and proper use of assistive device. Billing Therapeutic Exercise Treatment Minutes: 25 Gait Training Treatment Minutes: 15 Skilled Treatment Time Minutes (timed and untimed codes): 40 Total Session Time (minutes): 40 Session Start Time : 1445 Session Stop Time : 1525 Ousmane Pro PTA documented in this encounter [facility] 07-20-2024 History of Present illness Narrative Program_ID:[id number] Access Code: [email or web address] URL: [email or web address] Date: 07-20-2024 Prepared By: CRYSTAL DAI Program Notes Exercises - Seated August - x daily - 7 x weekly - 3 sets - 5-8 reps - Forward and Backward Stepping at Pool Wall - x daily - 7 x weekly - sets - reps Patient Education - Adaptive Equipment for Eating - Using a [place] Cuff Episode Visit Count: 12 Therapist That Will Accept/Oversee The Plan Of Care: Rivka TOTH/Benton Start of Care Date: 05/24/24 Onset Date: 11/16/23 Plan of Care Certification Date: 05/24/24 Next Certification Due Date: 08/16/24 Patient Identified by Name and Date of : Yes REHABILITATION AND SPORTS THERAPY OCCUPATIONAL THERAPY TREATMENT NOTE ASSESSMENT: Cabrera Sotelo tolerated the session with expected muscle soreness. He demonstrated difficulty with self feeding and improvements in ROM. The patient will continue to benefit from ongoing skilled occupational therapy to progress toward set goals. PLAN FOR NEXT VISIT: Cont NMES with fxnl training, active RUE motion; TRIAL ADPATIVE STRATEGIES WITH R HAND FOR WRITING, CUTTING FOOD SUBJECTIVE: Patient does not want to address TENS unit this session as he states that he has been doing this at the chiropractor and it has been helpful. He has also scheduled an appointment with a massage therapist that will be completed this evening. The patient plans to begin attending a gym and hiring a field trainer for the remainder of this month as he was approved for social security benefits and therefore has found himself in a better place financially and reportedly can now afford a membership. The patient reports that he has been waiting for home health orthodontic assistant for over 5 months now and has given up as the last 1 did not show up and has not returned he would like to address feeding himself with a spoon and handwriting if possible he is also interested in pursuing aquatic therapy upon discussion with WINDOW REPAIRER at this time the patient is benefiting from land therapy however will discuss again at a future date. Pain: Pain Pain Level: 0 Post Treatment Pain Post Treatment Pain Level: 0 OBJECTIVE MEASURES WITH LEVEL OF FUNCTION: No measurements taken TREATMENT: Neuromuscular Re-Education: 1: introduce mirror therapy 2: education mirror therapy Skilled Intervention: Patient education as noted. Self-Penitentiary Management: 1: trialed adaptive equpment knife and fork with built up foam hover the pt was not able to maintain a grasp at this time . 2: same as above for writing utensils , will continue to trial Skilled Intervention: Educated the patient regarding recommendations and provided written instruction to facilitate compliance. Activity progression based on professional judgement. Assigned Home Exercise Program: 1: Access Code: [email or web address] URL: [email or web address] Date: 07/20/2024 Prepared by: YANNA DURANT Exercises - Seated August x weekly - 3 sets - 5-8 reps - Forward and Backward Stepping at Pool Wall - 7 x weekly Patient Education - Adaptive Equipment for Eating - Using a [place] Cuff Billing Neuromuscular Re-Education Treatment Minutes: 25 Self-Care/Home Management Treatment Minutes: 20 Skilled Treatment Time Minutes (timed and untimed codes): 45 Total Session Time (minutes): 45 Session Start Time : 1345 Session Stop Time : 1430 MARYLU Barcenas documented in this encounter [facility] 07-20-2024 Note HNO ID: [id number] Author: YANNA DURANT OTA/L Service: ? Author Type: Dairy Management Specialist Type: Progress Notes Filed: 07/20/2024 14:21 Note Text: Episode Visit Count: 12 Therapist That Will Accept/Oversee The Plan Of Care: Rivka TOTH/[place] Start of Care Date: 05/24/24 Onset Date: 11/16/23 Plan of Care Certification Date: 05/24/24 Next Certification Due Date: 08/16/24 Patient Identified by Name and Date of : Yes REHABILITATION AND SPORTS THERAPY OCCUPATIONAL THERAPY TREATMENT NOTE ASSESSMENT: Cabrera Sotelo tolerated the session with expected muscle soreness. He demonstrated difficulty with self feeding and improvements in ROM. The patient will continue to benefit from ongoing skilled occupational therapy to progress toward set goals. PLAN FOR NEXT VISIT: Cont NMES with fxnl training, active RUE motion; TRIAL ADPATIVE STRATEGIES WITH R HAND FOR WRITING, CUTTING FOOD SUBJECTIVE: Patient does not want to address TENS unit this session as he states that he has been doing this at the chiropractor and it has been helpful. He has also scheduled an appointment with a massage therapist that will be completed this evening. The patient plans to begin attending a gym and hiring a field trainer for the remainder of this month as he was approved for social security benefits and therefore has found himself in a better place financially and reportedly can now afford a membership. The patient reports that he has been waiting for home health orthodontic assistant for over 5 months now and has given up as the last 1 did not show up and has not returned he would like to address feeding himself with a spoon and handwriting if possible he is also interested in pursuing aquatic therapy upon discussion with WINDOW REPAIRER at this time the patient isbenefiting from land therapy however will discuss again at a future date. Pain: Pain Pain Level: 0 Post Treatment Pain Post Treatment Pain Level: 0 OBJECTIVE MEASURES WITH LEVEL OF FUNCTION: No measurements taken TREATMENT: Neuromuscular Re-Education: 1: introduce mirror therapy 2: education mirror therapy Skilled Intervention: Patient education as noted. Self-Penitentiary Management: 1: trialed adaptive equpment knife and fork with built up foam hover the pt was not able to maintain a grasp at this time . 2: same as above for writing utensils , will continue to trial Skilled Intervention: Educated the patient regarding recommendations and provided written instruction to facilitate compliance. Activity progression based on professional judgement. Assigned Home Exercise Program: 1: Access Code: [email or web address] URL: [email or web address] Date: 07/20/2024 Prepared by: YANNA DURANT Exercises - Seated August x weekly - 3 sets - 5-8 reps - Forward and Backward Stepping at Pool Wall - 7 x weekly Patient Education - Adaptive Equipment for Eating - Using a [place] Cuff Billing Neuromuscular Re-Education Treatment Minutes: 25 Self-Care/Home Management Treatment Minutes: 20 Skilled Treatment Time Minutes (timed and untimed codes): 45 Total Session Time (minutes): 45 Session Start Time : 1345 Session Stop Time : 1430 CUCA Barcenas/Benton [facility] 07-19-2024 Note HNO ID: [id number] Author: GAVIN WEINER PTA Service: ? Author Type: Bookbinder Apprentice Type: Progress Notes Filed: 07/20/2024 11:42 Note Text: Episode Visit Count: 7 Therapist That Will Accept/Oversee The Plan Of Care: Crystal Dai Start of Care Date: 06/19/24 Onset Date: (approx 10/20/2023) Plan of Care Certification Date: 06/20/25 Next Certification Due Date: 09/07/24 Patient Identified by Name and Date of : Yes REHABILITATION AND SPORTS THERAPY PHYSICAL THERAPY TREATMENT NOTE ASSESSMENT: Cabrera Sotelo tolerated the session with evidence of muscle fatiguing weakness only. He demonstrated improvements in ease of activating right ankle dorsiflexion and the ability to perform gait with and able base SPC at increase speed with therapist assist. The patient will continue to benefit from ongoing skilled physical therapy to progress toward set goals. PLAN FOR NEXT VISIT: Continue LE strengthening, balance and gait training. SUBJECTIVE: Pt reports he has not been walking with AFO and reports no issues with ankle twisting or rolling. Pt reports no falls at home. Pain: Pain Pain Level: 0 Post Treatment Pain Post Treatment Pain Level: 0 OBJECTIVE MEASURES WITH LEVEL OF FUNCTION: Vitals Pulse: 72 (before ex) SpO2: 96 % Target HRR and HR Max Calculator: Yes Max Heart Rate: 170 TREATMENT: Therapeutic Exercise: 1: Seated w/ R LE on 55 cm ( orange ) ball: 2: -R hip extension 3 sec x 12 3: -R hip abd/add w/ knee x 12 4: -R HS curl isometric into 3 sec x 12 5: - assisted knee extension attempted active DF, no result even with brushing or tapping. 6: - shoe/sock therapist assisted knee extension with brushing on bottom of foot, DF x 10, progressed to active with brushing on anterior tib only x 10 8: 4 step ups w/ UE support, therapist assist to avoid genu recurvatum R up x 10, R remained on step to lower Skilled Intervention: Patient was educated in proper exercise technique and purpose for exercises. Skilled judgment was used in selection of appropriate interventions. Correct performance of therapeutic exercises was facilitated with verbal, visual, and tactile cuing. Gait Training: Pre gait training: Education on expectations and therapist assist with weight bearing through R elbow during increased speed Distance (feet): 30' x 4 Gait Cues: See above, at times cues for knee flexion and slight hip abduction to avoid adduction of leg Assistive Device: SPC w/ Able base Assist Level: CGA to min A allowing weight bearing through elbow with assist of WINDOW REPAIRER when speed increased Orthotic: no AFO 1: endurance biased gait with emhasis on mechanics during normal kassidy and safety during cues for high speed 2: -30' x 4 encouraging fast stepping while allowing weight bearing through R elbow w/ WINDOW REPAIRER assist Skilled Intervention: Patient was provided minimal assistance, contact guard assistance during pre-gait/gait training to prevent falls and insure safety. Facilitated proper gait cycle with the use of verbal, visual, and tactile cues for correction of gait deviations identified in the objective section above. Gait belt utilized during session for safety. Skilled judgment used to assess selection and proper sizing of assistive device. Home Exercise Program Assigned: 1: spoke with pt's and pt at conclusion of rx in regards to improvements during therapy session Billing Therapeutic Exercise Treatment Minutes: 20 Gait Training Treatment Minutes: 25 Skilled Treatment Time Minutes (timed and untimed codes): 45 Total Session Time (minutes): 45 Session Start Time : 1432 Session Stop Time : 1517 Gavin Weiner PTA [facility] 07-19-2024 History of Present illness Narrative Episode Visit Count: 7 Therapist That Will Accept/Oversee The Plan Of Care: Crystal Dai Start of Care Date: 06/19/24 Onset Date: (approx 10/20/2023) Plan of Care Certification Date: 06/20/25 Next Certification Due Date: 09/07/24 Patient Identified by Name and Date of : Yes REHABILITATION AND SPORTS THERAPY PHYSICAL THERAPY TREATMENT NOTE ASSESSMENT: Cabrera Sotelo tolerated the session with evidence of muscle fatiguing weakness only. He demonstrated improvements in ease of activating right ankle dorsiflexion and the ability to perform gait with and able base SPC at increase speed with therapist assist. The patient will continue to benefit from ongoing skilled physical therapy to progress toward set goals. PLAN FOR NEXT VISIT: Continue LE strengthening, balance and gait training. SUBJECTIVE: Pt reports he has not been walking with AFO and reports no issues with ankle twisting or rolling. Pt reports no falls at home. Pain: Pain Pain Level: 0 Post Treatment Pain Post Treatment Pain Level: 0 OBJECTIVE MEASURES WITH LEVEL OF FUNCTION: Vitals Pulse: 72 (before ex) SpO2: 96 % Target HRR and HR Max Calculator: Yes Max Heart Rate: 170 TREATMENT: Therapeutic Exercise: 1: Seated w/ R LE on 55 cm ( orange ) ball: 2: -R hip extension 3 sec x 12 3: -R hip abd/add w/ knee x 12 4: -R HS curl isometric into 3 sec x 12 5: - assisted knee extension attempted active DF, no result even with brushing or tapping. 6: - shoe/sock therapist assisted knee extension with brushing on bottom of foot, DF x 10, progressed to active with brushing on anterior tib only x 10 8: 4 step ups w/ UE support, therapist assist to avoid genu recurvatum R up x 10, R remained on step to lower Skilled Intervention: Patient was educated in proper exercise technique and purpose for exercises. Skilled judgment was used in selection of appropriate interventions. Correct performance of therapeutic exercises was facilitated with verbal, visual, and tactile cuing. Gait Training: Pre gait training: Education on expectations and therapist assist with weight bearing through R elbow during increased speed Distance (feet): 30' x 4 Gait Cues: See above, at times cues for knee flexion and slight hip abduction to avoid adduction of leg Assistive Device: SPC w/ Able base Assist Level: CGA to min A allowing weight bearing through elbow with assist of WINDOW REPAIRER when speed increased Orthotic: no AFO 1: endurance biased gait with emhasis on mechanics during normal kassidy and safety during cues for high speed 2: -30' x 4 encouraging fast stepping while allowing weight bearing through R elbow w/ WINDOW REPAIRER assist Skilled Intervention: Patient was provided minimal assistance, contact guard assistance during pre-gait/gait training to prevent falls and insure safety. Facilitated proper gait cycle with the use of verbal, visual, and tactile cues for correction of gait deviations identified in the objective section above. Gait belt utilized during session for safety. Skilled judgment used to assess selection and proper sizing of assistive device. Home Exercise Program Assigned: 1: spoke with pt's and pt at conclusion of rx in regards to improvements during therapy session Billing Therapeutic Exercise Treatment Minutes: 20 Gait Training Treatment Minutes: 25 Skilled Treatment Time Minutes (timed and untimed codes): 45 Total Session Time (minutes): 45 Session Start Time : 1432 Session Stop Time : 1517 Gavin Weiner PTA documented in this encounter [facility] 07-17-2024 Note Addended by: RIVKA COWAN on: 07/17/2024 04:59 PM Modules accepted: Orders [facility] 07-17-2024 Miscellaneous Notes Addended by: RIVKA NARANJO on: 07/17/2024 04:59 PM Modules accepted: Orders documented in this encounter [facility] 07-17-2024 History of Present illness Narrative Program_ID:[id number] Access Code: [email or web address] URL: [email or web address] Date: 07-17-2024 Prepared By: CRYSTAL DAI Program Notes Exercises - Seated March - x daily - 7 x weekly - 3 sets - 5-8 reps - Forward and Backward Stepping at Pool Wall - x daily - 7 x weekly - sets - reps Images from the original note were not included. Episode Visit Count: 6 Therapist That Will Accept/Oversee The Plan Of Care: Crystal Dai Start of Care Date: 06/19/24 Onset Date: (approx 10/20/2023) Plan of Care Certification Date: 06/20/25 Next Certification Due Date: 09/07/24 Patient Identified by Name and Date of : Yes REHABILITATION AND SPORTS THERAPY PHYSICAL THERAPY PROGRESS REPORT PLAN OF CARE UPDATE: Assessment: Cabrera Sotelo demonstrates improvements in standing, ADLs, walking in the house, walking in the community, and physical activities. The patient has progressed toward goals. Patient continues to present with impairments in balance, coordination, gait, independence in exercise, joint mobility, overall function, strength, and symptom management that interfere with weaning from home wheelchair . Current prognosis is Fair due to: chronic nature of impairments . The patient will benefit from continued skilled therapy services to meet the updated goals for this plan of care as noted below. 06/20/25 - 09/07/24 - Signed Goals for Episode of Care: established 06/19/24 Patient will increase strength of LE +1/2 m. grade to allow patient to improved ease of bed mobility; push through to gait speed - progressing 07/17 Patient will ambulate 400 feet with LBQC Left with stand by assist on level ground. - progressing 07/17 Patient will demonstrate current home exercise program independently. - building 07/17 Patient will improve distance on 2 minute walk test by 40 feet (=98) to increase endurance for household and community ambulation. - progressing 07/17 Patient Goals: walk without a cane; ultimately he would like to return to riding his 3 lau; wants to rebuild a motorcycle that's been put on hold (states that he realizes it wouldn't be safe to drive with visual changes and reaction times) Time Frame for Goals and Treatment : 09/18/24 Planned Interventions, Frequency, and Duration: (1-2), 8 weeks Total Number of Visits Planned: (8-16) Patient to be seen for Therapeutic exercise (85794), Neuromuscular re-education (78673), Manual therapy (99069), Therapeutic activities (66047), Self-fdc management (44506), Gait Training (40011), Patient/Family/Caregiver Education, Body Mechanics Training, Functional training, General Conditioning, E-Stim Attended/TENS (03832) (could trial NMES) PLAN FOR NEXT VISIT: static progressing as soon as possible to dynamic Balance training, gait training, trial NMES on distal LE musculature prn. Continue machine strengthening, as he'd like to ultimately join a gym; consider aerobic training with vital monitoring. Patient would like to try floor transfers; inquire on outcome to trial w/o AFO; wean out of wheelchair at home as safe (but may need to address urinary urge, if pt. agreeable - it was introduced on 07/17); high intensity gait training SUBJECTIVE: pt. states that the gait training and anterior tib tapping has gotten his ankle activating better and he hasn't had to wear the AFO for the past 5 days, which he is pleased about; he is interested in lifting weights at [employer] [facility]; has weaned from the shower chair and feels his standing balance is better. Pain: Pain Pain Level: 0 Post Treatment Pain Post Treatment Pain Level: 0 PROMIS Scales 07/10/2024 06/28/2024 05/24/2024 Higher is Better Phys Func - T Score 30 (moderate dysfunction) 24 (severe dysfunction) Phys Func - Percentile 2 0 Self-Eff Symptom - T Score 43 (Average) 33 (Low) Self-Eff Symptom - Percentile 24 4 Mobility - T Score 28 (severe dysfunction) Mobility - Percentile 1 Upper Extremity - T Score 26 (severe dysfunction) Upper Extremity - Percentile 1 T-scores: mean of general population = 50. 5 points is clinically meaningfully difference Percentiles provide an indication of how the patient's score ranks in relation to the general population. Higher percentile rankings indicate better function/quality of life. 50th percentile is the average of the general population and indicates half of respondents had a worse score. OBJECTIVE MEASURES WITH LEVEL OF FUNCTION: LE Strength R Hip Flexion (L2): 3+/5 R Knee Extension (L3): 3+/5 R Knee Flexion: 2-/5 R Ankle Dorsiflexion (L4): (2- with synergy of hip, knee flexion) R Ankle Plantar Flexion: 1/5 Functional Performance Test Results 2 Minute Walk Test (feet): 64 feet 2 Minute Walk Test Gait Speed (calculated): 0.16 m/s 4 Stage Balance Test Narrow base of support (sec): 23 sec (eyes closed) Tandem base of support (sec): 3 sec (eyes open) Single leg stance - left (sec): 5 sec (eyes open) TREATMENT: Therapeutic Exercise: 3: hip flexion, knee flexion, DF synergy with reps building toward neuroplastic maximization 4: hourly ambulation encouraged to maximize DF consistency and endurance building 5: 2:00 walk test Skilled Intervention: Patient education as noted. Manual Therapy: 1: data collection for progress reporting Skilled Intervention: Manual skills to improve joint mobility, ROM, and decrease pain. Utilized anatomy knowledge of the therapist, and assessment of patient's response to intervention. Neuromuscular Re-Education: 1: discussed neuroplasticity timeframes and intensities to push through to HEP success and compliance for potential of alf weaning from AFO for gait 2: balance reassessment Skilled Intervention: Patient education as noted. Gait Training: Gait Cues: DF Orthotic: no 2: outdoor ambulation for endurance/confidence/home building/planning with wheeled walker and contact guard assist X 100 feet Skilled Intervention: cueing, assessment for safety Billing Therapeutic Exercise Treatment Minutes: 8 Manual TherapyTreatment Minutes: 8 Neuromuscular Re-Education Treatment Minutes: 10 Gait Training Treatment Minutes: 20 Skilled Treatment Time Minutes (timed and untimed codes): 46 Total Session Time (minutes): 46 Session Start Time : 1500 Session Stop Time : 1546 Crystal Dai PT documented in this encounter [facility] 07-17-2024 Note HNO ID: [id number] Author: CRYSTAL DAI PT Service: ? Author Type: Physical Therapist Type: Progress Notes Filed: 07/17/2024 19:18 Note Text: Episode Visit Count: 6 Therapist That Will Accept/Oversee The Plan Of Care: Crystal Dai Start of Care Date: 06/19/24 Onset Date: (approx 10/20/2023) Plan of Care Certification Date: 06/20/25 Next Certification Due Date: 09/07/24 Patient Identified by Name and Date of : Yes REHABILITATION AND SPORTS THERAPY PHYSICAL THERAPY PROGRESS REPORT PLAN OF CARE UPDATE: Assessment: Cabrera Kearnss demonstrates improvements in standing, ADLs, walking in the house, walking in the community, and physical activities. The patient has progressed toward goals. Patient continues to present with impairments in balance, coordination, gait, independence in exercise, joint mobility, overall function, strength, and symptom management that interfere with weaning from home wheelchair . Current prognosis is Fair due to: chronic nature of impairments . The patient will benefit from continued skilled therapy services to meet the updated goals for this plan of care as noted below. 06/20/25 - 09/07/24 - Signed Goals for Episode of Care: established 06/19/24 Patient will increase strength of LE +1/2 m. grade to allow patient to improved ease of bed mobility; push through to gait speed - progressing 07/17 Patient will ambulate 400 feet with LBQC Left with stand by assist on level ground. - progressing 07/17 Patient will demonstrate current home exercise program independently. - building 07/17 Patient will improve distance on 2 minute walk test by 40 feet (=98) to increase endurance for household and community ambulation. - progressing 07/17 Patient Goals: walk without a cane; ultimately he would like to return to riding his 3 lau; wants to rebuild a motorcycle that's been put on hold (states that he realizes it wouldn't be safe to drive with visual changes and reaction times) Time Frame for Goals and Treatment : 09/18/24 Planned Interventions, Frequency, and Duration: (1-2), 8 weeks Total Number of Visits Planned: (8-16) Patient to be seen for Therapeutic exercise (19036), Neuromuscular re-education (41294), Manual therapy (89508), Therapeutic activities (18239), Self-fdc management (18329), Gait Training (81540), Patient/Family/Caregiver Education, Body Mechanics Training, Functional training, General Conditioning, E-Stim Attended/TENS (78900) (could trial NMES) PLAN FOR NEXT VISIT: static progressing as soon as possible to dynamic Balance training, gait training, trial NMES on distal LE musculature prn. Continue machine strengthening, as he'd like to ultimately join a gym; consider aerobic training with vital monitoring. Patient would like to try floor transfers; inquire on outcome to trial w/o AFO; wean out of wheelchair at home as safe (but may need to address urinary urge, if pt. agreeable - it was introduced on 07/17); high intensity gait training SUBJECTIVE: pt. states that the gait training and anterior tib tapping has gotten his ankle activating better and he hasn't had to wear the AFO for the past 5 days, which he is pleased about; he is interested in lifting weights at [employer] [facility]; has weaned from the shower chair and feels his standing balance is better. Pain: Pain Pain Level: 0 Post Treatment Pain Post Treatment Pain Level: 0 PROMIS Scales 07/10/2024 06/28/2024 05/24/2024 Higher is Better Phys Func - T Score 30 (moderate dysfunction) 24 (severe dysfunction) Phys Func - Percentile 2 0 Self-Eff Symptom - T Score 43 (Average) 33 (Low) Self-Eff Symptom - Percentile 24 4 Mobility - T Score 28 (severe dysfunction) Mobility - Percentile 1 Upper Extremity - T Score 26 (severe dysfunction) Upper Extremity - Percentile 1 T-scores: mean of general population = 50. 5 points is clinically meaningfully difference Percentiles provide an indication of how the patient's score ranks in relation to the general population. Higher percentile rankings indicate better function/quality of life. 50th percentile is the average of the general population and indicates half of respondents had a worse score. OBJECTIVE MEASURES WITH LEVEL OF FUNCTION: LE Strength R Hip Flexion (L2): 3+/5 R Knee Extension (L3): 3+/5 R Knee Flexion: 2-/5 R Ankle Dorsiflexion (L4): (2- with synergy of hip, knee flexion) R Ankle Plantar Flexion: 1/5 Functional Performance Test Results 2 Minute Walk Test (feet): 64 feet 2 Minute Walk Test Gait Speed (calculated): 0.16 m/s 4 Stage Balance Test Narrow base of support (sec): 23 sec (eyes closed) Tandem base of support (sec): 3 sec (eyes open) Single leg stance - left (sec): 5 sec (eyes open) TREATMENT: Therapeutic Exercise: 3: hip flexion, knee flexion, DF synergy with reps building toward neuroplastic maximization 4: hourly ambulation encouraged to maximize DF consistency and endura (more content not included)... [facility] 07-17-2024 Note HNO ID: [id number] Author: RIVKA NARANJO OTR/L Service: ? Author Type: Occupational Therapist Type: Progress Notes Filed: 07/17/2024 16:57 Note Text: Episode Visit Count: 11 Therapist That Will Accept/Oversee The Plan Of Care: Rivka JOINER Start of Care Date: 05/24/24 Onset Date: 11/16/23 Plan of Care Certification Date: 05/24/24 Next Certification Due Date: 08/16/24 Patient Identified by Name and Date of : Yes REHABILITATION AND SPORTS THERAPY OCCUPATIONAL THERAPY PROGRESS REPORT PLAN OF CARE UPDATE: Assessment: Cabrera Sotelo demonstrates improvements in walking in the house, walking in the community, physical activities, recreational activities, cleaning, cooking, dressing, grooming, feeding self, gripping, pinching, twisting, pulling, and pushing. The patient has progressed toward goals. Patient continues to present with impairments in ADL's, balance, independence in exercise, joint mobility, overall function, patient reported outcome measures, strength, and symptom management that interfere with . Current prognosis is Fair due to: clinical presentation, multiple co- morbidities, chronic nature of impairments, Prognosis may be improved by within-session changes, good support system/ coping skills. The patient will benefit from continued skilled therapy services to meet the updated goals for this plan of care as noted below. PLAN FOR NEXT VISIT: Cont NMES with fxnl training, active RUE motion; TRIAL ADPATIVE STRATEGIES WITH R HAND FOR WRITING, CUTTING FOOD LTGs = 12 weeks: 1.Patient will demo decreased UE stroke related symptoms as evidenced by decreasing QuickDash disability/symptom score to 30 or less. GOAL NOT MET, no change from last month 2.Patient will demo improved QOL as evidenced by increasing PSFS score to 5 or greater. GOAL MET 07/17, increased from 1.83 to 5.3 GOAL UPGRADED: Patient will demo improved QOL as evidenced by increasing PSFS score to 7 or greater. 3.Patient will complete community mobility at LA level or greater to increase return to PLOF. GOAL NOT MET, no change this reporting period d/t focus on other areas. Patient reported he would like to explore return to driving STGs = 6 weeks: 1.Patient will increase R hospital wellness coordinator strength to 10# or greater. GOAL PARTIALLY MET, increased to 8# 2. Patient will increase RUE AROM over all joints tested by 100 degrees or greater. GOAL MET, increased by 115 GOAL UPGRADED: Patient will increase RUE AROM over all joints tested to 700 degrees over joints tested or greater. 3.Patient and family will be IND with UB HEP. GOAL PARTIALLY MET, ongoing MET GOALS: 1.Patient will demo decreased UE stroke related symptoms as evidenced by decreasing QuickDash disability/symptom score to 75 or less. GOAL MET 06/19 with 45.4 2.Patient will increase RUE PROM over all joints tested by 100 degrees or greater. GOAL MET, increased by 140 degrees Time Frame for Goals and Treatment : 08/16/24 Planned Interventions, Frequency, and Duration: 2x/week, 4 weeks Total Number of Visits Planned: 8 Planned Treatment Interventions: Custom orthosis fabrication, Prefabricated orthosis fitting, Therapeutic exercise (07941), Therapeutic activities (32535), Manual therapy (30726), Neuromuscular re-education (73067), Self-fdc management (29063), Sensory Integration (02186), Physical performance test, Orthotics management and training (60785,13319), Patient/Family/Caregiver Education, Functional training, Community / Work Reintegration, Ultrasound (16801), E-Stim Attended/TENS (84800), Fluidotherapy (27758) PLAN FOR NEXT VISIT: Cont NMES with fxnl training, active RUE motion; TRIAL ADPATIVE STRATEGIES WITH R HAND FOR WRITING, CUTTING FOOD SUBJECTIVE: Pt seen for progress report this date. Pain: Pain Pain Level: 0 PROMIS Scales 07/10/2024 06/28/2024 05/24/2024 Higher is Better Phys Func - T Score 30 (moderate dysfunction) 24 (severe dysfunction) Phys Func - Percentile 2 0 Self-Eff Symptom - T Score 43 (Average) 33 (Low) Self-Eff Symptom - Percentile 24 4 Mobility - T Score 28 (severe dysfunction) Mobility - Percentile 1 Upper Extremity - T Score 26 (severe dysfunction) Upper Extremity - Percentile 1 T-scores: mean of general population = 50. 5 points is clinically meaningfully difference Percentiles provide an indication of how the patient's score ranks in relation to the general population. Higher percentile rankings indicate better function/quality of life. 50th percentile is the average of the general population and indicates half of respondents had a worse score. OBJECTIVE MEASURES WITH LEVEL OF FUNCTION: PSFS: cooking- 8, donning shoes- 8, washing/drying back- 5, getting to shop- 6, using guitar- 1, mechanical work- 4, t= 5.3 QuickDash disability/symptom score: 45.4 Hand Strength R Sock Folder Position 2 (lbs): 8 lbs L Sock Folder Position 2 (lbs): 65 lbs UE AROM R Shoulder Extension: 45 D (more content not included)... [facility] 07-17-2024 History of Present illness Narrative Images from the original note were not included. Episode Visit Count: 11 Therapist That Will Accept/Oversee The Plan Of Care: Rivka TOTH/Benton Start of Care Date: 05/24/24 Onset Date: 11/16/23 Plan of Care Certification Date: 05/24/24 Next Certification Due Date: 08/16/24 Patient Identified by Name and Date of : Yes REHABILITATION AND SPORTS THERAPY OCCUPATIONAL THERAPY PROGRESS REPORT PLAN OF CARE UPDATE: Assessment: Cabrera Sotelo demonstrates improvements in walking in the house, walking in the community, physical activities, recreational activities, cleaning, cooking, dressing, grooming, feeding self, gripping, pinching, twisting, pulling, and pushing. The patient has progressed toward goals. Patient continues to present with impairments in ADL's, balance, independence in exercise, joint mobility, overall function, patient reported outcome measures, strength, and symptom management that interfere with . Current prognosis is Fair due to: clinical presentation, multiple co- morbidities, chronic nature of impairments, Prognosis may be improved by within-session changes, good support system/ coping skills. The patient will benefit from continued skilled therapy services to meet the updated goals for this plan of care as noted below. PLAN FOR NEXT VISIT: Cont NMES with fxnl training, active RUE motion; TRIAL ADPATIVE STRATEGIES WITH R HAND FOR WRITING, CUTTING FOOD LTGs = 12 weeks: 1.Patient will demo decreased UE stroke related symptoms as evidenced by decreasing QuickDash disability/symptom score to 30 or less. GOAL NOT MET, no change from last month 2.Patient will demo improved QOL as evidenced by increasing PSFS score to 5 or greater. GOAL MET 07/17, increased from 1.83 to 5.3 GOAL UPGRADED: Patient will demo improved QOL as evidenced by increasing PSFS score to 7 or greater. 3.Patient will complete community mobility at LA level or greater to increase return to PLOF. GOAL NOT MET, no change this reporting period d/t focus on other areas. Patient reported he would like to explore return to driving STGs = 6 weeks: 1.Patient will increase R hospital wellness coordinator strength to 10# or greater. GOAL PARTIALLY MET, increased to 8# 2. Patient will increase RUE AROM over all joints tested by 100 degrees or greater. GOAL MET, increased by 115 GOAL UPGRADED: Patient will increase RUE AROM over all joints tested to 700 degrees over joints tested or greater. 3.Patient and family will be IND with UB HEP. GOAL PARTIALLY MET, ongoing MET GOALS: 1.Patient will demo decreased UE stroke related symptoms as evidenced by decreasing QuickDash disability/symptom score to 75 or less. GOAL MET 06/19 with 45.4 2.Patient will increase RUE PROM over all joints tested by 100 degrees or greater. GOAL MET, increased by 140 degrees Time Frame for Goals and Treatment : 08/16/24 Planned Interventions, Frequency, and Duration: 2x/week, 4 weeks Total Number of Visits Planned: 8 Planned Treatment Interventions: Custom orthosis fabrication, Prefabricated orthosis fitting, Therapeutic exercise (65956), Therapeutic activities (25981), Manual therapy (03857), Neuromuscular re-education (94756), Self-fdc management (63075), Sensory Integration (69846), Physical performance test, Orthotics management and training (70711,21083), Patient/Family/Caregiver Education, Functional training, Community / Work Reintegration, Ultrasound (22563), E-Stim Attended/TENS (87801), Fluidotherapy (65545) PLAN FOR NEXT VISIT: Cont NMES with fxnl training, active RUE motion; TRIAL ADPATIVE STRATEGIES WITH R HAND FOR WRITING, CUTTING FOOD SUBJECTIVE: Pt seen for progress report this date. Pain: Pain Pain Level: 0 PROMIS Scales 07/10/2024 06/28/2024 05/24/2024 Higher is Better Phys Func - T Score 30 (moderate dysfunction) 24 (severe dysfunction) Phys Func - Percentile 2 0 Self-Eff Symptom - T Score 43 (Average) 33 (Low) Self-Eff Symptom - Percentile 24 4 Mobility - T Score 28 (severe dysfunction) Mobility - Percentile 1 Upper Extremity - T Score 26 (severe dysfunction) Upper Extremity - Percentile 1 T-scores: mean of general population = 50. 5 points is clinically meaningfully difference Percentiles provide an indication of how the patient's score ranks in relation to the general population. Higher percentile rankings indicate better function/quality of life. 50th percentile is the average of the general population and indicates half of respondents had a worse score. OBJECTIVE MEASURES WITH LEVEL OF FUNCTION: PSFS: cooking- 8, donning shoes- 8, washing/drying back- 5, getting to shop- 6, using guitar- 1, mechanical work- 4, t= 5.3 QuickDash disability/symptom score: 45.4 Hand Strength R Sock Folder Position 2 (lbs): 8 lbs L Sock Folder Position 2 (lbs): 65 lbs UE AROM R Shoulder Extension: 45 Degrees R Shoulder Flex: 30 Degrees R Shoulder ABduction: 50 Degrees R Elbow Extension: 160 Degrees R Elbow Flexion: 75 Degrees R Forearm Supination: 40 Degrees R Forearm Pronation: 75 Degrees R Wrist Extension: 0 Degrees R Wrist Flexion: 25 Degrees R Wrist Radial Deviation: 10 Degrees R Wrist Ulnar Deviation: 10 Degrees TREATMENT: Therapeutic Activity: 1: Completed progress report this date for collaborative review of goals to ensure client-centered care. Pt reported feeling he has made most gains this reporting period in areas of UB dressing, threading RUE in sleeve, walking, ability to actively use hand/hospital wellness coordinator walker with R hand. Pt reported feeling he req's most gains in cont'd movement and use of arm. Pt reported wishing to return to driving. Edu provided on recommendation to focus on RUE movement and safety with transfers and mobility, then complete driving screen in spring with possibility to transfer to driving therapist for any vehicle adaptations. Pt in agreement. Skilled Intervention: Educated on proper/safe technique for activities performed today. Activity progression based on professional judgment. Billing Therapeutic Activity Treatment Minutes: 40 Skilled Treatment Time Minutes (timed and untimed codes): 40 Total Session Time (minutes): 40 Session Start Time : 1350 Session Stop Time : 1430 RHYS Hastings documented in this encounter [facility] 07-12-2024 History of Present illness Narrative Program_ID:[id number] Access Code: [email or web address] URL: [email or web address]/ Date: 07-12-2024 Prepared By: YANNA DURANT Program Notes Exercises - Seated Scapular Retraction - 1 x daily - 5 x weekly - 1 sets - 10 reps - Seated Shoulder Shrug Circles AROM Backward - 1 x daily - 5 x weekly - 1 sets - 10 reps - Supine Shoulder Flexion AAROM with Hands Clasped - 1 x daily - 7 x weekly - 3 sets - 10 reps - Seated Elbow Extension and Shoulder External Rotation AAROM at Table with Towel - 1 x daily - 7 x weekly - 3 sets - 10 reps - Seated Isometric Elbow Flexion - 1 x daily - 7 x weekly - 3 sets - 10 reps - Wrist Extension Stretch Supinated - 1 x daily - 7 x weekly - 3 sets - 10 reps - Finger Flexion with Wrist Extension Caregiver PROM - 1 x daily - 7 x weekly - 3 sets - 10 reps - Finger Flexion with Wrist Extension Caregiver PROM - 1 x daily - 7 x weekly - 3 sets - 10 reps - Supine Shoulder Flexion AAROM with Hands Clasped - 1 x daily - 7 x weekly - 3 sets - 10 reps - Supine Shoulder Flexion PROM - 1 x daily - 7 x weekly - 3 sets - 10 reps - Seated Wrist Flexion Stretch - 1 x daily - 7 x weekly - 3 sets - 10 reps - Seated Wrist Extension Stretch - 1 x daily - 7 x weekly - 3 sets - 10 reps - Seated Flexion Stretch with Colombian Ball - 1 x daily - 7 x weekly - 3 sets - 10 reps - Seated 3 Way Exercise Ball Roll Out Stretch - 1 x daily - 7 x weekly - 3 sets - 10 reps Patient Education - Tips for Caregivers: Managing Shoulder Subluxation and Preventing Injuries During Movement - Heat - Ice Episode Visit Count: 10 Therapist That Will Accept/Oversee The Plan Of Care: Rivka JOINER Start of Care Date: 05/24/24 Onset Date: 11/16/23 Plan of Care Certification Date: 05/24/24 Next Certification Due Date: 08/16/24 Patient Identified by Name and Date of : Yes REHABILITATION AND SPORTS THERAPY OCCUPATIONAL THERAPY TREATMENT NOTE ASSESSMENT: Cabrera Sotelo tolerated the session with expected muscle soreness. He demonstrated difficulty with AROM external rotation and improvements in sit to stand, bathing ( per report) wrist movements and shoulder PROM. The patient will continue to benefit from ongoing skilled occupational therapy to progress toward set goals. PLAN FOR NEXT VISIT: Cont NMES with fxnl training, active RUE motion SUBJECTIVE: Patient stated that he was sore after last session but there after once soreness resolved he has not had any pain since he is very excited and expresses that he feels he has had an increase in range of motion demonstrating shoulder extension and wrist extension. Demonstrates external rotation is most difficult movement. patient reports that he has not returned yet to the chiropractor but has an appointment this evening and will monitor use of TENS but does not want to do neuro readhere this session to determine if pain from last week was from passive range of motion at OT or chiropractic visit. The patient also stated that he knows his legs are getting stronger and he is willing to get rid of his wheelchair in the home and use his cane only moving to the wheelchair being used only for hospital visits that required long walk in the parking lot. He has also improved with bathig strategies at home , bathing himself on his own. Pain: Pain Pain Level: 0 OBJECTIVE MEASURES WITH LEVEL OF FUNCTION: No measurements taken TREATMENT: Therapeutic Exercise: 1: Patient seated EOM with large red ball participated in shoulder flexion extension seated x 15 each followed by left side than right side no loss of balance and patient reports no pain 2: EOM seated shoulder shrugs for trunk stability 3: sidelying with RUE over ball to facilitate scap stability Skilled Intervention: Skilled judgment was used in selection of appropriate interventions. Patient education as noted. Therapeutic Activity: 1: Patient seated EOM introduced to left hand to right knee to begin facilitation of right hemisphere left hemisphere at this time the patient is unable to reach right hand to left knee however understands that as range of motion returns will progress. Skilled Intervention: Activity progression based on professional judgment. Assigned Home Exercise Program: 1: Access Code: [email or web address] URL: [email or web address] Date: 07/12/2024 Prepared by: YANNA DURANT Exercises - Seated Scapular Retraction - 1 x daily - 5 x weekly - 1 sets - 10 reps - Seated Shoulder Shrug Circles AROM Backward - 1 x daily - 5 x weekly - 1 sets - 10 reps - Supine Shoulder Flexion AAROM with Hands Clasped - 1 x daily - 7 x weekly - 3 sets - 10 reps - Seated Elbow Extension and Shoulder External Rotation AAROM at Table with Towel - 1 x daily - 7 x weekly - 3 sets - 10 reps - Seated Isometric Elbow Flexion - 1 x daily - 7 x weekly - 3 sets - 10 reps - Wrist Extension Stretch Supinated - 1 x daily - 7 x weekly - 3 sets - 10 reps - Finger Flexion with Wrist Extension Caregiver PROM - 1 x daily - 7 x weekly - 3 sets - 10 reps - Finger Flexion with Wrist Extension Caregiver PROM - 1 x daily - 7 x weekly - 3 sets - 10 reps - Supine Shoulder Flexion AAROM with Hands Clasped - 1 x daily - 7 x weekly - 3 sets - 10 reps - Supine Shoulder Flexion PROM - 1 x daily - 7 x weekly - 3 sets - 10 reps - Seated Wrist Flexion Stretch - 1 x daily - 7 x weekly - 3 sets - 10 reps - Seated Wrist Extension Stretch - 1 x daily - 7 x weekly - 3 sets - 10 reps - Seated Flexion Stretch with Colombian Ball - 1 x daily - 7 x weekly - 3 sets - 10 reps - Seated 3 Way Exercise Ball Roll Out Stretch - 1 x daily - 7 x weekly - 3 sets - 10 reps Patient Education - Tips for Caregivers: Managing Shoulder Subluxation and Preventing Injuries During Movement - Heat - Ice Billing Therapeutic Exercise Treatment Minutes: 30 Therapeutic Activity Treatment Minutes: 15 Skilled Treatment Time Minutes (timed and untimed codes): 45 Total Session Time (minutes): 45 Session Start Time : 1345 Session Stop Time : 1430 MARYLU Barcenas documented in this encounter [facility] 07-12-2024 Note HNO ID: [id number] Author: YANNA DURANT OTA/L Service: ? Author Type: Dairy Management Specialist Type: Progress Notes Filed: 07/12/2024 15:39 Note Text: Episode Visit Count: 10 Therapist That Will Accept/Oversee The Plan Of Care: Rivka TOTH/Benton Start of Care Date: 05/24/24 Onset Date: 11/16/23 Plan of Care Certification Date: 05/24/24 Next Certification Due Date: 08/16/24 Patient Identified by Name and Date of : Yes REHABILITATION AND SPORTS THERAPY OCCUPATIONAL THERAPY TREATMENT NOTE ASSESSMENT: Cabrera Sotelo tolerated the session with expected muscle soreness. He demonstrated difficulty with AROM external rotation and improvements in sit to stand, bathing ( per report) wrist movements and shoulder PROM. The patient will continue to benefit from ongoing skilled occupational therapy to progress toward set goals. PLAN FOR NEXT VISIT: Cont NMES with fxnl training, active RUE motion SUBJECTIVE: Patient stated that he was sore after last session but there after once soreness resolved he has not had any pain since he is very excited and expresses that he feels he has had an increase in range of motion demonstrating shoulder extension and wrist extension. Demonstrates external rotation is most difficult movement. patient reports that he has not returned yet to the chiropractor but has an appointment this evening and will monitor use of TENS but does not want to do neuro readhere this session to determine if pain from last week was from passive range of motion at OT or chiropractic visit. The patient also stated that he knows his legs are getting stronger and he is willing to get rid of his wheelchair in the home and use his cane only moving to the wheelchair being used only for hospital visits that required long walk in the parking lot. He has also improved with bathig strategies at home , bathing himself on his own. Pain: Pain Pain Level: 0 OBJECTIVE MEASURES WITH LEVEL OF FUNCTION: No measurements taken TREATMENT: Therapeutic Exercise: 1: Patient seated EOM with large red ball participated in shoulder flexion extension seated x 15 each followed by left side than right side no loss of balance and patient reports no pain 2: EOM seated shoulder shrugs for trunk stability 3: sidelying with RUE over ball to facilitate scap stability Skilled Intervention: Skilled judgment was used in selection of appropriate interventions. Patient education as noted. Therapeutic Activity: 1: Patient seated EOM introduced to left hand to right knee to begin facilitation of right hemisphere left hemisphere at this time the patient is unable to reach right hand to left knee however understands that as range of motion returns will progress. Skilled Intervention: Activity progression based on professional judgment. Assigned Home Exercise Program: 1: Access Code: [email or web address] URL: [email or web address]/ Date: 07/12/2024 Prepared by: YANNA DURANT Exercises - Seated Scapular Retraction - 1 x daily - 5 x weekly - 1 sets - 10 reps - Seated Shoulder Shrug Circles AROM Backward - 1 x daily - 5 x weekly - 1 sets - 10 reps - Supine Shoulder Flexion AAROM with Hands Clasped - 1 x daily - 7 x weekly - 3 sets - 10 reps - Seated Elbow Extension and Shoulder External Rotation AAROM at Table with Towel - 1 x daily - 7 x weekly - 3 sets - 10 reps - Seated Isometric Elbow Flexion - 1 x daily - 7 x weekly - 3 sets - 10 reps - Wrist Extension Stretch Supinated - 1 x daily - 7 x weekly - 3 sets - 10 reps - Finger Flexion with Wrist Extension Caregiver PROM - 1 x daily - 7 x weekly - 3 sets - 10 reps - Finger Flexion with Wrist Extension Caregiver PROM - 1 x daily - 7 x weekly - 3 sets - 10 reps - Supine Shoulder Flexion AAROM with Hands Clasped - 1 x daily - 7 x weekly - 3 sets - 10 reps - Supine Shoulder Flexion PROM - 1 x daily - 7 x weekly - 3 sets - 10 reps - Seated Wrist Flexion Stretch - 1 x daily - 7 x weekly - 3 sets - 10 reps - Seated Wrist Extension Stretch - 1 x daily - 7 x weekly - 3 sets - 10 reps - Seated Flexion Stretch with Colombian Ball - 1 x daily - 7 x weekly - 3 sets - 10 reps - Seated 3 Way Exercise Ball Roll Out Stretch - 1 x daily - 7 x weekly - 3 sets - 10 reps Patient Education - Tips for Caregivers: Managing Shoulder Subluxation and Preventing Injuries During Movement - Heat - Ice Billing Therapeutic Exercise Treatment Minutes: 30 Therapeutic Activity Treatment Minutes: 15 Skilled Treatment Time Minutes (timed and untimed codes): 45 Total Session Time (minutes): 45 Session Start Time : 1345 Session Stop Time : 1430 YannaCUCA Rodriguez/Benton [facility] 07-12-2024 Note HNO ID: [id number] Author: GAVIN WEINER PTA Service: ? Author Type: Bookbinder Apprentice Type: Progress Notes Filed: 07/14/2024 09:31 Note Text: Episode Visit Count: 5 Therapist That Will Accept/Oversee The Plan Of Care: Crystal Dai Start of Care Date: 06/19/24 Onset Date: (approx 10/20/2023) Plan of Care Certification Date: 06/20/25 Next Certification Due Date: 09/07/24 Patient Identified by Name and Date of : Yes REHABILITATION AND SPORTS THERAPY PHYSICAL THERAPY TREATMENT NOTE ASSESSMENT: Cabrera Sotelo tolerated the session with no issues. He demonstrated ability to improve gait pattern without AFO this session, but will need further assessment in regards to Right ankle stability before a final determination has been made. Provided education to pt and in this regard and that safety and preventing falls are greatest concerns at this time. The patient will continue to benefit from ongoing skilled physical therapy to progress toward set goals. PLAN FOR NEXT VISIT: Continue per PTs plan outlined on 06/19: Balance training, gait training, trial NMES on distal LE musculature prn. Continue machine strengthening. Patient would like to try floor transfers. SUBJECTIVE: Pt reports concerns regarding gait pattern, R foot AFO. Pt notes he built a block to work on DF/PF at home. Pain: Pain Pain Level: 0 Post Treatment Pain Post Treatment Pain Level: No Change OBJECTIVE MEASURES WITH LEVEL OF FUNCTION: TREATMENT: Therapeutic Exercise: 5: - Seated right lower extremity simultaneous hip flexion, knee flexion and ankle DF x 10 6: AFO removed with right LE resting on therapist: 7: - Assisted R ankle dorsiflexion with tapping and passively 2x 5 8: -Assisted R ankle DF concentrically with tapping for eccentric control x 10 9: - Seated with bilateral forefeet on 4 inch step active assisted heel raises x 10, with B heels on 4 inch step AAROM toe raises x 10 Skilled Intervention: Patient was educated in proper exercise technique and purpose for exercises. Skilled judgment was used in selection of appropriate interventions. Correct performance of therapeutic exercises was facilitated with verbal, visual, and tactile cuing. Gait Training: Pre gait training: Discussed a.d, AFO and current gait pattern. Distance (feet): 120' x 1 w/ FFW, 120' x 1 w/ LBQC, 120' x 1 w/ FWW ( wheels moved to outside of walker), 60' x1 w/o a.d w/ AFO, 60' x1 w/ LBQC w/o AFO Gait Cues: Assist with right hand placement when using FWW and cues for right foot placement when using FWW (foot placement improved when wheels on FWW was relocated and patient was cued to flex knee with gait) Assistive Device: FWW , no a.d, LBQC Assist Level: varied from min A assist to CGA Orthotic: Self purchased AFO donned and doffed at times. 1: multiple gait bouts completed as noted with and without assistive device and/or right foot AFO 2: Patient presents difficulty gripping walker for improved symmetry of gait. 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 3: AFO removed during gait with a variety of assistive devices to no assistive device noting improved foot placement, decreased genu recurvatum and improved ability to flex knee during swing phase. Trialed also Lacy wrap to right foot to assist with dorsiflexion versus AFO. Skilled Intervention: Patient was provided minimal assistance, contact guard assistance during pre-gait/gait training to prevent falls and insure safety. Facilitated proper gait cycle with the use of verbal cues for correction of gait deviations identified in the objective section above. Gait belt utilized during session for safety. Skilled judgment used to assess selection, proper sizing, and proper use of assistive device. Provided verbal instruction for home to facilitate proper performance and compliance to promote safety. Billing Therapeutic Exercise Treatment Minutes: 14 Gait Training Treatment Minutes: 33 Skilled Treatment Time Minutes (timed and untimed codes): 47 Total Session Time (minutes): 47 Session Start Time : 1434 Session Stop Time : 1521 Gavin Weiner PTA [facility] 07-12-2024 History of Present illness Narrative Episode Visit Count: 5 Therapist That Will Accept/Oversee The Plan Of Care: Crystal Dai Start of Care Date: 06/19/24 Onset Date: (approx 10/20/2023) Plan of Care Certification Date: 06/20/25 Next Certification Due Date: 09/07/24 Patient Identified by Name and Date of : Yes REHABILITATION AND SPORTS THERAPY PHYSICAL THERAPY TREATMENT NOTE ASSESSMENT: Cabrera Sotelo tolerated the session with no issues. He demonstrated ability to improve gait pattern without AFO this session, but will need further assessment in regards to Right ankle stability before a final determination has been made. Provided education to pt and in this regard and that safety and preventing falls are greatest concerns at this time. The patient will continue to benefit from ongoing skilled physical therapy to progress toward set goals. PLAN FOR NEXT VISIT: Continue per PTs plan outlined on 06/19: Balance training, gait training, trial NMES on distal LE musculature prn. Continue machine strengthening. Patient would like to try floor transfers. SUBJECTIVE: Pt reports concerns regarding gait pattern, R foot AFO. Pt notes he built a block to work on DF/PF at home. Pain: Pain Pain Level: 0 Post Treatment Pain Post Treatment Pain Level: No Change OBJECTIVE MEASURES WITH LEVEL OF FUNCTION: TREATMENT: Therapeutic Exercise: 5: - Seated right lower extremity simultaneous hip flexion, knee flexion and ankle DF x 10 6: AFO removed with right LE resting on therapist: 7: - Assisted R ankle dorsiflexion with tapping and passively 2x 5 8: -Assisted R ankle DF concentrically with tapping for eccentric control x 10 9: - Seated with bilateral forefeet on 4 inch step active assisted heel raises x 10, with B heels on 4 inch step AAROM toe raises x 10 Skilled Intervention: Patient was educated in proper exercise technique and purpose for exercises. Skilled judgment was used in selection of appropriate interventions. Correct performance of therapeutic exercises was facilitated with verbal, visual, and tactile cuing. Gait Training: Pre gait training: Discussed a.d, AFO and current gait pattern. Distance (feet): 120' x 1 w/ FFW, 120' x 1 w/ LBQC, 120' x 1 w/ FWW ( wheels moved to outside of walker), 60' x1 w/o a.d w/ AFO, 60' x1 w/ LBQC w/o AFO Gait Cues: Assist with right hand placement when using FWW and cues for right foot placement when using FWW (foot placement improved when wheels on FWW was relocated and patient was cued to flex knee with gait) Assistive Device: FWW , no a.d, LBQC Assist Level: varied from min A assist to CGA Orthotic: Self purchased AFO donned and doffed at times. 1: multiple gait bouts completed as noted with and without assistive device and/or right foot AFO 2: Patient presents difficulty gripping walker for improved symmetry of gait. 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 3: AFO removed during gait with a variety of assistive devices to no assistive device noting improved foot placement, decreased genu recurvatum and improved ability to flex knee during swing phase. Trialed also Lacy wrap to right foot to assist with dorsiflexion versus AFO. Skilled Intervention: Patient was provided minimal assistance, contact guard assistance during pre-gait/gait training to prevent falls and insure safety. Facilitated proper gait cycle with the use of verbal cues for correction of gait deviations identified in the objective section above. Gait belt utilized during session for safety. Skilled judgment used to assess selection, proper sizing, and proper use of assistive device. Provided verbal instruction for home to facilitate proper performance and compliance to promote safety. Billing Therapeutic Exercise Treatment Minutes: 14 Gait Training Treatment Minutes: 33 Skilled Treatment Time Minutes (timed and untimed codes): 47 Total Session Time (minutes): 47 Session Start Time : 1434 Session Stop Time : 152 Gavin Weiner PTA documented in this encounter [facility] 07-10-2024 Note HNO ID: [id number] Author: YANNA DURANT OTA/L Service: ? Author Type: Dairy Management Specialist Type: Progress Notes Filed: 07/10/2024 17:06 Note Text: Episode Visit Count: 9 Therapist That Will Accept/Oversee The Plan Of Care: Rivka Narnajo OTR/L Start of Care Date: 05/24/24 Onset Date: 11/16/23 Plan of Care Certification Date: 05/24/24 Next Certification Due Date: 08/16/24 Patient Identified by Name and Date of : Yes REHABILITATION AND SPORTS THERAPY OCCUPATIONAL THERAPY TREATMENT NOTE ASSESSMENT: Cabrera Sotelo tolerated the session with decreased symptoms. He demonstrated difficulty with pain and discomfort in RUE. The patient will continue to benefit from ongoing skilled occupational therapy to progress toward set goals. PLAN FOR NEXT VISIT: Cont NMES with fxnl training, active RUE motion SUBJECTIVE: Patient stated that his shingles are all cleared up. Home health aide has not return to the house and patient is not certain if he is going to continue to try to find someone. Patient would the inconsistency with passive range of motion at home and completing massage around bicep. Patient also reports having scheduled with masses therapist for shoulder massage which she will do on Wednesday and has plans to see a chiropractor. At his last chiropractic visit he stated that the chiropractor used a TENS unit to make his hand shake. Pain: Pain Pain Level: 6 Pain Location: Upper Arm - Right Post Treatment Pain Post Treatment Pain Level: 2 OBJECTIVE MEASURES WITH LEVEL OF FUNCTION: No measurements taken TREATMENT: Therapeutic Exercise: 1: wrist flex/extension , with powder undeeneath on table 2: supination/pronation , place and hold 3: AAROM 4: wrist flexion /ext 5: AAROM 6: sidelying ball up down , right left , education with present 7: scapular clocks with resistance Skilled Intervention: Patient education as noted. Neuromuscular Re-Education: 1: shoulder TENS for pain to RUE shoulder reduction with heat , manual activity to forearm and wrist , see above Skilled Intervention: Patient education as noted. Billing Therapeutic Exercise Treatment Minutes: 30 Neuromuscular Re-Education Treatment Minutes: 30 Skilled Treatment Time Minutes (timed and untimed codes): 60 Total Session Time (minutes): 60 Session Start Time : 1345 Session Stop Time : 1445 Yannaher DurantCUCA/[place] [facility] 07-10-2024 History of Present illness Narrative Episode Visit Count: 9 Therapist That Will Accept/Oversee The Plan Of Care: Rivka Naranjo OTR/L Start of Care Date: 05/24/24 Onset Date: 11/16/23 Plan of Care Certification Date: 05/24/24 Next Certification Due Date: 08/16/24 Patient Identified by Name and Date of : Yes REHABILITATION AND SPORTS THERAPY OCCUPATIONAL THERAPY TREATMENT NOTE ASSESSMENT: Cabrera Sotelo tolerated the session with decreased symptoms. He demonstrated difficulty with pain and discomfort in RUE. The patient will continue to benefit from ongoing skilled occupational therapy to progress toward set goals. PLAN FOR NEXT VISIT: Cont NMES with fxnl training, active RUE motion SUBJECTIVE: Patient stated that his shingles are all cleared up. Home health aide has not return to the house and patient is not certain if he is going to continue to try to find someone. Patient would the inconsistency with passive range of motion at home and completing massage around bicep. Patient also reports having scheduled with masses therapist for shoulder massage which she will do on Wednesday and has plans to see a chiropractor. At his last chiropractic visit he stated that the chiropractor used a TENS unit to make his hand shake. Pain: Pain Pain Level: 6 Pain Location: Upper Arm - Right Post Treatment Pain Post Treatment Pain Level: 2 OBJECTIVE MEASURES WITH LEVEL OF FUNCTION: No measurements taken TREATMENT: Therapeutic Exercise: 1: wrist flex/extension , with powder undeeneath on table 2: supination/pronation , place and hold 3: AAROM 4: wrist flexion /ext 5: AAROM 6: sidelying ball up down , right left , education with present 7: scapular clocks with resistance Skilled Intervention: Patient education as noted. Neuromuscular Re-Education: 1: shoulder TENS for pain to RUE shoulder reduction with heat , manual activity to forearm and wrist , see above Skilled Intervention: Patient education as noted. Billing Therapeutic Exercise Treatment Minutes: 30 Neuromuscular Re-Education Treatment Minutes: 30 Skilled Treatment Time Minutes (timed and untimed codes): 60 Total Session Time (minutes): 60 Session Start Time : 1345 Session Stop Time : 1445 MARYLU Barcenas documented in this encounter [facility] 07-10-2024 Note HNO ID: [id number] Author: OUSMANE PRO PTA Service: ? Author Type: Bookbinder Apprentice Type: Progress Notes Filed: 07/10/2024 15:44 Note Text: Episode Visit Count: 4 Therapist That Will Accept/Oversee The Plan Of Care: Crystal Dai Start of Care Date: 06/19/24 Onset Date: (approx 10/20/2023) Plan of Care Certification Date: 06/20/25 Next Certification Due Date: 09/07/24 Patient Identified by Name and Date of : Yes REHABILITATION AND SPORTS THERAPY PHYSICAL THERAPY TREATMENT NOTE ASSESSMENT: Cabrera Sotelo tolerated the session with no issues. He demonstrated improvements in ambulation with quad cane requiring less assistance this session as well as less assistance getting on and off machines. The patient will continue to benefit from ongoing skilled physical therapy to progress toward set goals. PLAN FOR NEXT VISIT: Continue per PTs plan outlined on 06/19: Balance training, gait training, trial NMES on distal LE musculature prn. Continue machine strengthening. Patient would like to try floor transfers next session SUBJECTIVE: Patient reports he is very interested in getting back to a gym on his own. Pain: Pain Pain Level: 0 Post Treatment Pain Post Treatment Pain Level: 0 OBJECTIVE MEASURES WITH LEVEL OF FUNCTION: There were no objective measurements taken on this date. See assessment for patient response to treatment. TREATMENT: Therapeutic Exercise: 1: Seated unsupported with R LE resting on orange 55 cm ball: 2: -hip extension 5 sec hold x 10 3: -Hip ABD/ADD 2 x 10 4: -HS curls into ball 5 seconds x 10 5: - Simultaneous hip flexion knee flexion x 10 6: AFO removed with right LE resting on ball: 7: - Assisted dorsiflexion with tapping and reflex activation x 5 8: - Simultaneous hip flexion, knee flexion and dorsiflexion of right LE 2 x 5, active dorsi flexion presented 9: LP(4) 6pl 2x15 using RLE as much as possible Min A to get onto machine 10: Knee Extension machine 1pl RLE only 2x10 Min A to get into machine and use of stool Skilled Intervention: Patient was educated in proper exercise technique and purpose for exercises. Skilled judgment was used in selection of appropriate interventions. Correct performance of therapeutic exercises was facilitated with verbal and visual cuing. Gait Training: Distance (feet): 120' Gait Cues: Monitoring of right foot placement and right hand placement Assistive Device: Quad cane Assist Level: SUP Orthotic: Self purchased AFO on right foot. Skilled Intervention: Patient was provided stand by assist, supervision during pre-gait/gait training to prevent falls and insure safety. Facilitated proper gait cycle with the use of verbal and visual cues for correction of gait deviations identified in the objective section above. Gait belt utilized during session for safety. Skilled judgment used to assess proper use of assistive device. Billing Therapeutic Exercise Treatment Minutes: 30 Gait Training Treatment Minutes: 10 Total Session Time (minutes): 40 Session Start Time : 1445 Session Stop Time : 1525 Ousmane Pro [facility] 07-10-2024 History of Present illness Narrative Episode Visit Count: 4 Therapist That Will Accept/Oversee The Plan Of Care: Crystal Dai Start of Care Date: 06/19/24 Onset Date: (approx 10/20/2023) Plan of Care Certification Date: 06/20/25 Next Certification Due Date: 09/07/24 Patient Identified by Name and Date of : Yes REHABILITATION AND SPORTS THERAPY PHYSICAL THERAPY TREATMENT NOTE ASSESSMENT: Cabrera Kearnss tolerated the session with no issues. He demonstrated improvements in ambulation with quad cane requiring less assistance this session as well as less assistance getting on and off machines. The patient will continue to benefit from ongoing skilled physical therapy to progress toward set goals. PLAN FOR NEXT VISIT: Continue per PTs plan outlined on 06/19: Balance training, gait training, trial NMES on distal LE musculature prn. Continue machine strengthening. Patient would like to try floor transfers next session SUBJECTIVE: Patient reports he is very interested in getting back to a gym on his own. Pain: Pain Pain Level: 0 Post Treatment Pain Post Treatment Pain Level: 0 OBJECTIVE MEASURES WITH LEVEL OF FUNCTION: There were no objective measurements taken on this date. See assessment for patient response to treatment. TREATMENT: Therapeutic Exercise: 1: Seated unsupported with R LE resting on orange 55 cm ball: 2: -hip extension 5 sec hold x 10 3: -Hip ABD/ADD 2 x 10 4: -HS curls into ball 5 seconds x 10 5: - Simultaneous hip flexion knee flexion x 10 6: AFO removed with right LE resting on ball: 7: - Assisted dorsiflexion with tapping and reflex activation x 5 8: - Simultaneous hip flexion, knee flexion and dorsiflexion of right LE 2 x 5, active dorsi flexion presented 9: LP(4) 6pl 2x15 using RLE as much as possible Min A to get onto machine 10: Knee Extension machine 1pl RLE only 2x10 Min A to get into machine and use of stool Skilled Intervention: Patient was educated in proper exercise technique and purpose for exercises. Skilled judgment was used in selection of appropriate interventions. Correct performance of therapeutic exercises was facilitated with verbal and visual cuing. Gait Training: Distance (feet): 120' Gait Cues: Monitoring of right foot placement and right hand placement Assistive Device: Quad cane Assist Level: SUP Orthotic: Self purchased AFO on right foot. Skilled Intervention: Patient was provided stand by assist, supervision during pre-gait/gait training to prevent falls and insure safety. Facilitated proper gait cycle with the use of verbal and visual cues for correction of gait deviations identified in the objective section above. Gait belt utilized during session for safety. Skilled judgment used to assess proper use of assistive device. Billing Therapeutic Exercise Treatment Minutes: 30 Gait Training Treatment Minutes: 10 Total Session Time (minutes): 40 Session Start Time : 1445 Session Stop Time : 1525 Ousmane Pro PTA documented in this encounter [facility] 07-06-2024 History of Present illness Narrative Program_ID:[id number] Access Code: [email or web address] URL: [email or web address] Date: 07-06-2024 Prepared By: YANNA DURANT Program Notes Exercises - Seated Scapular Retraction - 1 x daily - 5 x weekly - 1 sets - 10 reps - Seated Shoulder Shrug Circles AROM Backward - 1 x daily - 5 x weekly - 1 sets - 10 reps - Supine Shoulder Flexion AAROM with Hands Clasped - 1 x daily - 7 x weekly - 3 sets - 10 reps - Seated Elbow Extension and Shoulder External Rotation AAROM at Table with Towel - 1 x daily - 7 x weekly - 3 sets - 10 reps - Seated Isometric Elbow Flexion - 1 x daily - 7 x weekly - 3 sets - 10 reps - Wrist Extension Stretch Supinated - 1 x daily - 7 x weekly - 3 sets - 10 reps - Finger Flexion with Wrist Extension Caregiver PROM - 1 x daily - 7 x weekly - 3 sets - 10 reps - Finger Flexion with Wrist Extension Caregiver PROM - 1 x daily - 7 x weekly - 3 sets - 10 reps - Supine Shoulder Flexion AAROM with Hands Clasped - 1 x daily - 7 x weekly - 3 sets - 10 reps - Supine Shoulder Flexion PROM - 1 x daily - 7 x weekly - 3 sets - 10 reps - Seated Wrist Flexion Stretch - 1 x daily - 7 x weekly - 3 sets - 10 reps - Seated Wrist Extension Stretch - 1 x daily - 7 x weekly - 3 sets - 10 reps Patient Education - Tips for Caregivers: Managing Shoulder Subluxation and Preventing Injuries During Movement - Heat - Ice Episode Visit Count: 8 Therapist That Will Accept/Oversee The Plan Of Care: Rivka TOTH/[place] Start of Care Date: 05/24/24 Onset Date: 11/16/23 Plan of Care Certification Date: 05/24/24 Next Certification Due Date: 08/16/24 Patient Identified by Name and Date of : Yes REHABILITATION AND SPORTS THERAPY OCCUPATIONAL THERAPY TREATMENT NOTE ASSESSMENT: Cabrera Sotelo tolerated the session with expected muscle soreness. He demonstrated difficulty with RANGE OF MOTION , ADLs and self care . The patient will continue to benefit from ongoing skilled occupational therapy to progress toward set goals. PLAN FOR NEXT VISIT: Cont NMES with fxnl training, active RUE motion SUBJECTIVE: Patient reports he has shingles currently and has finished his antibiotics. Cleared with management protocol for treating patients with shingles and was cleared to proceed. Pt stated that his home health aid has not yet retuned, called this am and reported that she may have taken another position. Pain: Pain Pain Level: 0 Post Treatment Pain Post Treatment Pain Level: 0 OBJECTIVE MEASURES WITH LEVEL OF FUNCTION: No measurements this session TREATMENT: Neuromuscular Re-Education: 2: To facilitate wrist extension the negative electrode is placed on the motor point of the extensor muscle group and the positive electrode is placed on the distal aspect of the extensor muscle belly, 24 3: supination pronation , place and hold 4: elbow flex ext 5: aarom elbow extension 6: gross grasp onto blue sponge for resistance Skilled Intervention: Patient education as noted. Billing Neuromuscular Re-Education Treatment Minutes: 50 Skilled Treatment Time Minutes (timed and untimed codes): 50 Total Session Time (minutes): 50 Session Start Time : 5 Session Stop Time : 1435 MARYLU Barcenas documented in this encounter [facility] 07-03-2024 Note HNO ID: [id number] Author: OUSMANE PRO PTA Service: ? Author Type: Bookbinder Apprentice Type: Progress Notes Filed: 07/03/2024 16:07 Note Text: Episode Visit Count: 3 Therapist That Will Accept/Oversee The Plan Of Care: Crystal Dai Start of Care Date: 06/19/24 Onset Date: (approx 10/20/2023) Plan of Care Certification Date: 06/20/25 Next Certification Due Date: 09/07/24 Patient Identified by Name and Date of : Yes REHABILITATION AND SPORTS THERAPY PHYSICAL THERAPY TREATMENT NOTE ASSESSMENT: Cabrera Sotelo tolerated the session with no issues. He demonstrated improvements in strength with addition of exercise machines this session. Discussed with patient options for gyms where he could have assistance from a canine service instructor trainer or therapist for continued strengthening. The patient will continue to benefit from ongoing skilled physical therapy to progress toward set goals. PLAN FOR NEXT VISIT: Continue per PTs plan outlined on 06/19: Balance training, gait training, trial NMES on distal LE musculature prn. Continue machine strengthening SUBJECTIVE: Patient reports he has shingles currently and has finished his antibiotics. Cleared with management protocol for treating patients with shingles and was cleared to proceed. Pain: Pain Pain Level: 0 Post Treatment Pain Post Treatment Pain Level: 0 OBJECTIVE MEASURES WITH LEVEL OF FUNCTION: There were no objective measurements taken on this date. See assessment for patient response to treatment. TREATMENT: Therapeutic Exercise: 1: Seated with R LE resting on orange 55 cm ball: 2: -hip extension 5 sec hold x 10 3: -Hip ABD/ADD 2 x 10 4: -HS curls into ball 5 seconds x 10 5: - Simultaneous hip flexion knee flexion x 10 6: AFO removed with right LE resting on ball: 7: - Assisted dorsiflexion with tapping and reflex activation x 5 8: - Simultaneous hip flexion, knee flexion and dorsiflexion of right LE 2 x 5, active dorsi flexion presented 9: LP(4) 6pl 2x10 using RLE as much as possible Min A to get onto machine 10: Knee Extension machine 1pl RLE only 2x10 Min A to get into machine and use of stool Skilled Intervention: Patient was educated in proper exercise technique and purpose for exercises. Skilled judgment was used in selection of appropriate interventions. Correct performance of therapeutic exercises was facilitated with verbal and visual cuing. Gait Training: Distance (feet): 120' Gait Cues: Monitoring of right foot placement and right hand placement Assistive Device: Quad cane Assist Level: CGA Orthotic: Self purchased AFO on right foot. Skilled Intervention: Patient was provided contact guard assistance, stand by assist during pre-gait/gait training to prevent falls and insure safety. Facilitated proper gait cycle with the use of verbal and visual cues for correction of gait deviations identified in the objective section above. Gait belt utilized during session for safety. Skilled judgment used to assess selection, proper sizing, and proper use of assistive device. Billing Therapeutic Exercise Treatment Minutes: 35 Gait Training Treatment Minutes: 10 Skilled Treatment Time Minutes (timed and untimed codes): 45 Total Session Time (minutes): 45 Session Start Time : 1445 Session Stop Time : 1530 Ousmane Pro [facility] 07-03-2024 History of Present illness Narrative Episode Visit Count: 3 Therapist That Will Accept/Oversee The Plan Of Care: Crystal Dai Start of Care Date: 06/19/24 Onset Date: (approx 10/20/2023) Plan of Care Certification Date: 06/20/25 Next Certification Due Date: 09/07/24 Patient Identified by Name and Date of : Yes REHABILITATION AND SPORTS THERAPY PHYSICAL THERAPY TREATMENT NOTE ASSESSMENT: Cabrera B Sotelo tolerated the session with no issues. He demonstrated improvements in strength with addition of exercise machines this session. Discussed with patient options for gyms where he could have assistance from a canine service instructor trainer or therapist for continued strengthening. The patient will continue to benefit from ongoing skilled physical therapy to progress toward set goals. PLAN FOR NEXT VISIT: Continue per PTs plan outlined on 06/19: Balance training, gait training, trial NMES on distal LE musculature prn. Continue machine strengthening SUBJECTIVE: Patient reports he has shingles currently and has finished his antibiotics. Cleared with management protocol for treating patients with shingles and was cleared to proceed. Pain: Pain Pain Level: 0 Post Treatment Pain Post Treatment Pain Level: 0 OBJECTIVE MEASURES WITH LEVEL OF FUNCTION: There were no objective measurements taken on this date. See assessment for patient response to treatment. TREATMENT: Therapeutic Exercise: 1: Seated with R LE resting on orange 55 cm ball: 2: -hip extension 5 sec hold x 10 3: -Hip ABD/ADD 2 x 10 4: -HS curls into ball 5 seconds x 10 5: - Simultaneous hip flexion knee flexion x 10 6: AFO removed with right LE resting on ball: 7: - Assisted dorsiflexion with tapping and reflex activation x 5 8: - Simultaneous hip flexion, knee flexion and dorsiflexion of right LE 2 x 5, active dorsi flexion presented 9: LP(4) 6pl 2x10 using RLE as much as possible Min A to get onto machine 10: Knee Extension machine 1pl RLE only 2x10 Min A to get into machine and use of stool Skilled Intervention: Patient was educated in proper exercise technique and purpose for exercises. Skilled judgment was used in selection of appropriate interventions. Correct performance of therapeutic exercises was facilitated with verbal and visual cuing. Gait Training: Distance (feet): 120' Gait Cues: Monitoring of right foot placement and right hand placement Assistive Device: Quad cane Assist Level: CGA Orthotic: Self purchased AFO on right foot. Skilled Intervention: Patient was provided contact guard assistance, stand by assist during pre-gait/gait training to prevent falls and insure safety. Facilitated proper gait cycle with the use of verbal and visual cues for correction of gait deviations identified in the objective section above. Gait belt utilized during session for safety. Skilled judgment used to assess selection, proper sizing, and proper use of assistive device. Billing Therapeutic Exercise Treatment Minutes: 35 Gait Training Treatment Minutes: 10 Skilled Treatment Time Minutes (timed and untimed codes): 45 Total Session Time (minutes): 45 Session Start Time : 1445 Session Stop Time : 1530 Ousmane Pro PTA documented in this encounter [facility] 07-03-2024 Note HNO ID: [id number] Author: YANNA DURANT OTA/L Service: ? Author Type: Dairy Management Specialist Type: Progress Notes Filed: 07/06/2024 14:00 Note Text: Episode Visit Count: 8 Therapist That Will Accept/Oversee The Plan Of Care: Rivka Naranjo OTR/[place] Start of Care Date: 05/24/24 Onset Date: 11/16/23 Plan of Care Certification Date: 05/24/24 Next Certification Due Date: 08/16/24 Patient Identified by Name and Date of : Yes REHABILITATION AND SPORTS THERAPY OCCUPATIONAL THERAPY TREATMENT NOTE ASSESSMENT: Cabrera Sotelo tolerated the session with expected muscle soreness. He demonstrated difficulty with RANGE OF MOTION , ADLs and self care . The patient will continue to benefit from ongoing skilled occupational therapy to progress toward set goals. PLAN FOR NEXT VISIT: Cont NMES with fxnl training, active RUE motion SUBJECTIVE: Patient reports he has shingles currently and has finished his antibiotics. Cleared with management protocol for treating patients with shingles and was cleared to proceed. Pt stated that his home health aid has not yet retuned, called this am and reported that she may have taken another position. Pain: Pain Pain Level: 0 Post Treatment Pain Post Treatment Pain Level: 0 OBJECTIVE MEASURES WITH LEVEL OF FUNCTION: No measurements this session TREATMENT: Neuromuscular Re-Education: 2: To facilitate wrist extension the negative electrode is placed on the motor point of the extensor muscle group and the positive electrode is placed on the distal aspect of the extensor muscle belly, 24 3: supination pronation , place and hold 4: elbow flex ext 5: aarom elbow extension 6: gross grasp onto blue sponge for resistance Skilled Intervention: Patient education as noted. Billing Neuromuscular Re-Education Treatment Minutes: 50 Skilled Treatment Time Minutes (timed and untimed codes): 50 Total Session Time (minutes): 50 Session Start Time : 1345 Session Stop Time : 1435 MARYLU Barcenas [facility] 06-28-2024 Note HNO ID: [id number] Author: GAVIN WEINER PTA Service: ? Author Type: Bookbinder Apprentice Type: Progress Notes Filed: 06/29/2024 10:12 Note Text: Episode Visit Count: 2 Therapist That Will Accept/Oversee The Plan Of Care: Crystal Dai Start of Care Date: 06/19/24 Onset Date: (approx 10/20/2023) Plan of Care Certification Date: 06/20/25 Next Certification Due Date: 09/07/24 Patient Identified by Name and Date of : Yes REHABILITATION AND SPORTS THERAPY PHYSICAL THERAPY TREATMENT NOTE ASSESSMENT: Cabrera Sotelo tolerated the session with expected muscle fatigue. He demonstrated improvements in facilitation of active right ankle dorsiflexion. The patient will continue to benefit from ongoing skilled physical therapy to progress toward set goals. PLAN FOR NEXT VISIT: Continue per PTs plan outlined on 06/19: Balance training, gait training, trial NMES on distal LE musculature prn. SUBJECTIVE: Pt reports no significant pain, but reports motivation for using weight machines. Pain: Pain Pain Level: 0 Post Treatment Pain Post Treatment Pain Level: 0 OBJECTIVE MEASURES WITH LEVEL OF FUNCTION: Vitals BP: 152/74 (before ex) TREATMENT: Therapeutic Exercise: 1: Seated with R LE resting on orange 55 cm ball: 2: -hip extension 5 sec hold x 10 3: -Hip ABD/ADD 2 x 10 4: -HS curls into ball 5 seconds x 10 5: - Simultaneous hip flexion knee flexion x 10 6: AFO removed with right LE resting on ball: 7: - Attempted active dorsiflexion, no contraction utilized brushing tapping 8: - Assisted dorsiflexion actively concentrically encouraged patient eccentric control x 10 9: - Assisted dorsiflexion with tapping and reflex activation x 5 10: - Simultaneous hip flexion, knee flexion and dorsiflexion of right LE 2 x 5, active dorsi flexion presented Skilled Intervention: Patient was educated in proper exercise technique and purpose for exercises. Skilled judgment was used in selection of appropriate interventions. Correct performance of therapeutic exercises was facilitated with verbal, visual, and tactile cuing. Gait Training: Pre gait training: see above Distance (feet): 120' x 2 Gait Cues: Monitoring of right foot placement and right hand placement Assistive Device: Rollator Assist Level: CGA/min assist for 1 missed stepl Orthotic: Self purchased AFO on right foot. 1: Discussed trial of utilizing rollator or front wheel walker for symmetry of gait . 2: Patient circumducts right lower extremity during gait 3: WINDOW REPAIRER assist patient with R hand hospital wellness coordinator Skilled Intervention: Patient was provided minimal assistance, contact guard assistance during pre-gait/gait training to prevent falls and insure safety. Facilitated proper gait cycle with the use of verbal and visual cues for correction of gait deviations identified in the objective section above. Gait belt utilized during session for safety. Skilled judgment used to assess selection and proper use of assistive device. Billing Therapeutic Exercise Treatment Minutes: 19 Gait Training Treatment Minutes: 23 Skilled Treatment Time Minutes (timed and untimed codes): 42 Total Session Time (minutes): 42 Session Start Time : 1435 Session Stop Time : 1517 Gavin Weiner PTA [facility] 06-28-2024 History of Present illness Narrative Episode Visit Count: 2 Therapist That Will Accept/Oversee The Plan Of Care: Crystal Dai Start of Care Date: 06/19/24 Onset Date: (approx 10/20/2023) Plan of Care Certification Date: 06/20/25 Next Certification Due Date: 09/07/24 Patient Identified by Name and Date of : Yes REHABILITATION AND SPORTS THERAPY PHYSICAL THERAPY TREATMENT NOTE ASSESSMENT: Cabrera Sotelo tolerated the session with expected muscle fatigue. He demonstrated improvements in facilitation of active right ankle dorsiflexion. The patient will continue to benefit from ongoing skilled physical therapy to progress toward set goals. PLAN FOR NEXT VISIT: Continue per PTs plan outlined on 06/19: Balance training, gait training, trial NMES on distal LE musculature prn. SUBJECTIVE: Pt reports no significant pain, but reports motivation for using weight machines. Pain: Pain Pain Level: 0 Post Treatment Pain Post Treatment Pain Level: 0 OBJECTIVE MEASURES WITH LEVEL OF FUNCTION: Vitals BP: 152/74 (before ex) TREATMENT: Therapeutic Exercise: 1: Seated with R LE resting on orange 55 cm ball: 2: -hip extension 5 sec hold x 10 3: -Hip ABD/ADD 2 x 10 4: -HS curls into ball 5 seconds x 10 5: - Simultaneous hip flexion knee flexion x 10 6: AFO removed with right LE resting on ball: 7: - Attempted active dorsiflexion, no contraction utilized brushing tapping 8: - Assisted dorsiflexion actively concentrically encouraged patient eccentric control x 10 9: - Assisted dorsiflexion with tapping and reflex activation x 5 10: - Simultaneous hip flexion, knee flexion and dorsiflexion of right LE 2 x 5, active dorsi flexion presented Skilled Intervention: Patient was educated in proper exercise technique and purpose for exercises. Skilled judgment was used in selection of appropriate interventions. Correct performance of therapeutic exercises was facilitated with verbal, visual, and tactile cuing. Gait Training: Pre gait training: see above Distance (feet): 120' x 2 Gait Cues: Monitoring of right foot placement and right hand placement Assistive Device: Rollator Assist Level: CGA/min assist for 1 missed stepl Orthotic: Self purchased AFO on right foot. 1: Discussed trial of utilizing rollator or front wheel walker for symmetry of gait . 2: Patient circumducts right lower extremity during gait 3: WINDOW REPAIRER assist patient with R hand hospital wellness coordinator Skilled Intervention: Patient was provided minimal assistance, contact guard assistance during pre-gait/gait training to prevent falls and insure safety. Facilitated proper gait cycle with the use of verbal and visual cues for correction of gait deviations identified in the objective section above. Gait belt utilized during session for safety. Skilled judgment used to assess selection and proper use of assistive device. Billing Therapeutic Exercise Treatment Minutes: 19 Gait Training Treatment Minutes: 23 Skilled Treatment Time Minutes (timed and untimed codes): 42 Total Session Time (minutes): 42 Session Start Time : 1435 Session Stop Time : 1517 Gavin Weiner PTA documented in this encounter [facility] 06-28-2024 Note HNO ID: [id number] Author: YANNA DURANT OTA/L Service: ? Author Type: Dairy Management Specialist Type: Progress Notes Filed: 07/06/2024 14:38 Note Text: Episode Visit Count: 7 Therapist That Will Accept/Oversee The Plan Of Care: Rivka TOTH/[place] Start of Care Date: 05/24/24 Onset Date: 11/16/23 Plan of Care Certification Date: 05/24/24 Next Certification Due Date: 08/16/24 Patient Identified by Name and Date of : Yes REHABILITATION AND SPORTS THERAPY OCCUPATIONAL THERAPY TREATMENT NOTE ASSESSMENT: Cabrera B Sotelo tolerated the session with expected muscle soreness. He demonstrated difficulty with wrist and finger AROM and improvements in shoulder ROM. The patient will continue to benefit from ongoing skilled occupational therapy to progress toward set goals. PLAN FOR NEXT VISIT: Cont NMES with fxnl training, active RUE motion SUBJECTIVE: Patient reports consistency with home exercise program. Stated that he is beginning to see an increase of shoulder range of motion and has noted that when lying in bed and completing he is able to achieve more movement. This week, he had a home health aide start to facilitate home program in the home as well as light meal prep and housework she has been inconsistent due to weather. The patient stated that he spends a lot of time in a wheelchair because of fear of falling but he is interested in completing his own prep once he regains he balance Pain: Pain Pain Level: 0 Post Treatment Pain Post Treatment Pain Level: 0 OBJECTIVE MEASURES WITH LEVEL OF FUNCTION: No measurements taken TREATMENT: Neuromuscular Re-Education: 2: To facilitate wrist extension the negative electrode is placed on the motor point of the extensor muscle group and the positive electrode is placed on the distal aspect of the extensor muscle belly, 24 3: supination pronation , place and hold 4: elbow flex ext 5: aarom elbow extension 6: gross grasp onto blue sponge for resistance Skilled Intervention: Reviewed and educated patient on additions/changes for home program as noted above with an (*). Billing Neuromuscular Re-Education Treatment Minutes: 40 Skilled Treatment Time Minutes (timed and untimed codes): 40 Total Session Time (minutes): 40 Session Start Time : 1350 Session Stop Time : 1430 MARYLU Barcenas [facility] 06-28-2024 History of Present illness Narrative Episode Visit Count: 7 Therapist That Will Accept/Oversee The Plan Of Care: Rivka TOTH/[place] Start of Care Date: 05/24/24 Onset Date: 11/16/23 Plan of Care Certification Date: 05/24/24 Next Certification Due Date: 08/16/24 Patient Identified by Name and Date of : Yes REHABILITATION AND SPORTS THERAPY OCCUPATIONAL THERAPY TREATMENT NOTE ASSESSMENT: Cabrera Sotelo tolerated the session with expected muscle soreness. He demonstrated difficulty with wrist and finger AROM and improvements in shoulder ROM. The patient will continue to benefit from ongoing skilled occupational therapy to progress toward set goals. PLAN FOR NEXT VISIT: Cont NMES with fxnl training, active RUE motion SUBJECTIVE: Patient reports consistency with home exercise program. Stated that he is beginning to see an increase of shoulder range of motion and has noted that when lying in bed and completing he is able to achieve more movement. This week, he had a home health aide start to facilitate home program in the home as well as light meal prep and housework she has been inconsistent due to weather. The patient stated that he spends a lot of time in a wheelchair because of fear of falling but he is interested in completing his own prep once he regains he balance Pain: Pain Pain Level: 0 Post Treatment Pain Post Treatment Pain Level: 0 OBJECTIVE MEASURES WITH LEVEL OF FUNCTION: No measurements taken TREATMENT: Neuromuscular Re-Education: 2: To facilitate wrist extension the negative electrode is placed on the motor point of the extensor muscle group and the positive electrode is placed on the distal aspect of the extensor muscle belly, 24 3: supination pronation , place and hold 4: elbow flex ext 5: aarom elbow extension 6: gross grasp onto blue sponge for resistance Skilled Intervention: Reviewed and educated patient on additions/changes for home program as noted above with an (*). Billing Skilled Treatment Time Minutes (timed and untimed codes): 40 Total Session Time (minutes): 40 Session Start Time : 1350 Session Stop Time : 1430 MARYLU Barcenas documented in this encounter [facility] 06-19-2024 Note HNO ID: [id number] Author: CRYSTAL DAI, PT Service: ? Author Type: Physical Therapist Type: Progress Notes Filed: 06/20/2024 13:18 Note Text: Episode Visit Count: 1 Therapist That Will Accept/Oversee The Plan Of Care: Crystal Dai Start of Care Date: 06/19/24 Onset Date: (approx 10/20/2023) Plan of Care Certification Date: 06/20/25 Next Certification Due Date: 09/07/24 Patient Identified by Name and Date of : Yes REHABILITATION AND SPORTS THERAPY PHYSICAL THERAPY EVALUATION PLAN OF CARE: Assessment: Cabrera Sotelo presents with diagnosis of hemiplegia post stoke that interferes with (walking, getting in bed (must use a bar), hasn't tried getting back on his motorcycle + he's concerned about steering) . The patient presents with impairments in balance, flexibility, gait, independence in exercise, overall function, strength, symptom management, and edema. PROMIS? (Patient-Reported Outcomes Measurement Information System) scores were reviewed and identified as a rehabilitation concern. Prognosis for therapy is Fair due to: (chronicity) fair based on chronicity . The patient will benefit from skilled therapy services to meet the goals established for this plan of care as noted below. Classification Diagnosis Grouping: CVA Goals for Episode of Care: established 06/19/24 Patient will increase strength of LE +1/2 m. grade to allow patient to improved ease of bed mobility; push through to gait speed. Patient will ambulate 400 feet with LBQC Left with stand by assist on level ground. Patient will demonstrate current home exercise program independently. Patient will improve distance on 2 minute walk test by 40 feet (=98) to increase endurance for household and community ambulation. Patient Goals: walk without a cane; ultimately he would like to return to riding his 3 lau; wants to rebuild a motorcycle that's been put on hold (states that he realizes it wouldn't be safe to drive with visual changes and reaction times) Time Frame for Goals and Treatment : 09/18/24 Planned Interventions, Frequency, and Duration: Current Frequency: (1-2) Duration: (8-12 weeks) Total Number of Visits Planned: (8-24) Planned Treatment Interventions: Therapeutic exercise (55665), Neuromuscular re-education (90564), Manual therapy (81650), Therapeutic activities (88003), Self-fdc management (76873), Gait Training (26223), Patient/Family/Caregiver Education, Body Mechanics Training, Functional training, General Conditioning, E-Stim Attended/TENS (16993) (could trial NMES) PLAN FOR NEXT VISIT: balance training, gait training, trial NMES on distal LE musculature Patient demonstrates good understanding of plan of care and treatment. The above goals and plan of care were discussed and agreed upon by patient/family. SUBJECTIVE: Pt. 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 and he wears an AFO for gait with LBQC only when is home, otherwise he self propels a manual wheelchair (he has completed 16 visits of outpatient therapy but moved locations to allow addition of occupational therapy) Patient Goals: walk without a cane; ultimately he would like to return to riding his 3 lau; wants to rebuild a motorcycle that's been put on hold (states that he realizes it wouldn't be safe to drive with visual changes and reaction times) Functional Limitations: (walking, getting in bed (must use a bar), hasn't tried getting back on his motorcycle + he's concerned about steering) Prior Level of Function: (motorcycle riding, ambulation without an assistive device) Relevant History Past Relevant Medical Conditions: (R shoulder pain, R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 discuss any questions you have with your health care provider. Document Released: 09/10/2017 Document Revised: 06/10/2018 Document Reviewed: 09/10/2017 [email or web address] Patient Education 2020 [place]. Fall Prevention in the Home, Adult Falls can cause injuries. They can happen to people of all ages. There are many things you can do to make your home safe and to help prevent falls. Ask for help when making these changes, if needed. What actions can I take to prevent falls? General Instructions Use good lighting in all rooms. Replace any light bulbs that burn out. Turn on the lights when you go into a dark area. Use night-lights. Keep items that you use often in dggv-aj-whnxx places. Lower the shelves around your home if necessary. Set up your furniture so you have a clear path. Avoid moving your furniture around. Do not have throw rugs and other things on the floor that can make you trip. Avoid walking on wet floors. If any of your floors are uneven, fix them. Add color or contrast paint or tape to clearly irwin and help you see: ? Any grab bars or handrails. ? First and last steps of stairways. ? Where the edge of each step is. If you use a stepladder: ? Make sure that it is fully opened. Do not climb a closed stepladder. ? Make sure that both sides of the stepladder are locked into place. ? Ask someone to hold the stepladder for you while you use it. If there are any pets around you, be aware of where they are. What can I do in the bathroom? Keep the floor dry. Clean up any water that spills onto the floor as soon as it happens. Remove soap buildup in the tub or shower regularly. Use non-skid mats or decals on the floor of the tub or shower. Attach bath mats securely with double-sided, non-slip rug tape. If you need to sit down in the shower, use a plastic, non-slip stool. Install grab bars by the toilet and in the tub and shower. Do not use towel bars as grab bars. What can I do in the bedroom? Make sure that you have a light by your bed that is easy to reach. Do not use any sheets or blankets that are too big for your bed. They should not hang down onto the floor. Have a firm chair that has side arms. You can use this for support while you get dressed. What can I do in the kitchen? Clean up any spills right away. If you need to reach something above you, use a strong step stool that has a grab bar. Keep electrical cords out of the way. Do not use floor amharic or wax that makes floors slippery. If you must use wax, use non-skid floor wax. What can I do with my stairs? Do not leave any items on the stairs. Make sure that you have a light switch at the top of the stairs and the bottom of the stairs. If you do not have them, ask someone to add them for you. Make sure that there are handrails on both sides of the stairs, and use them. Fix handrails that are broken or loose. Make sure that handrails are as long as the stairways. Install non-slip stair treads on all stairs in your home. Avoid having throw rugs at the top or bottom of the stairs. If you do have throw rugs, attach them to the floor with carpet tape. Choose a carpet that does not hide the edge of the steps on the stairway. Check any carpeting to make sure that it is firmly attached to the stairs. Fix any carpet that is loose or worn. What can I do on the outside of my home? Use bright outdoor lighting. Regularly fix the edges of walkways and driveways and fix any cracks. Remove anything that might make you trip as you walk through a door, such as a raised step or threshold. Trim any bushes or trees on the path to your home. Regularly check to see if handrails are loose or broken. Make sure that both sides of any steps have handrails. Install guardrails along the edges of any raised decks and porches. Clear walking paths of anything that might make someone trip, such as tools or rocks. Have any leaves, snow, or ice cleared regularly. Use sand or salt on walking paths during winter. Clean up any spills in your garage right away. This includes grease or oil spills. What other actions can I take? Wear shoes that: ? Have a low heel. Do not wear high heels. ? Have rubber bottoms. ? Are comfortable and fit you well. ? Are closed at the toe. Do not wear open-toe sandals. Use tools that help you move around (mobility aids) if they are needed. These include: ? Canes. ? Walkers. ? Scooters. ? Crutches. Review your medicines with your doctor. Some medicines can make you feel dizzy. This can increase your chance of falling. Ask your doctor what other things you can do to help prevent falls. Where to find more information Centers for Disease Control and PreventionRYLEY: https://cdc.gov National [place] on Aging: https://ae4kagm.medina.nih.gov Contact a doctor if: You are afraid of falling at home. You feel weak, drowsy, or dizzy at home. You fall at home. Summary There are many simple things that you can do to make your home safe and to help prevent falls. Ways to make your home safe include removing tripping hazards and installing grab bars in the bathroom. Ask for help when making these changes in your home. This information is not intended to replace advice given to you by your health care provider. Make sure you discuss any questions you have with your health care provider. Document Released: 04/03/2010 Document Revised: 09/28/2019 Document Reviewed: 01/20/2018 ElseMyFit Patient Education 2020 [employer] Daily Diabetes Record Check your blood glucose (BG) as directed by your health care provider. Use this form to record your BG results as well as any diabetes medicines that you take, including insulin. Bringing a record of your BG results and a list of your current medicines to your health care provider is very helpful in managing your diabetes. These numbers help your health care provider to know whether your diabetes management plan needs to be changed. Patient name: ____ Week of Daily BG results and diabetes medicines Date: Breakfast BG / Medicines: / Lunch BG / Medicines: / Dinner BG / Medicines: / Bedtime BG / Medicines: / Date: Breakfast BG / Medicines: / Lunch BG / Medicines: / Dinner BG / Medicines: / Bedtime BG / Medicines: / Date: Breakfast BG / Medicines: / Lunch BG / Medicines: / Dinner BG / Medicines: / Bedtime BG / Medicines: / Date: Breakfast BG / Medicines: / Lunch BG / Medicines: / Dinner BG / Medicines: / Bedtime BG / Medicines: / Date: Breakfast BG / Medicines: / Lunch BG / Medicines: / Dinner BG / Medicines: / Bedtime BG / Medicines: / Date: Breakfast BG / Medicines: / Lunch BG / Medicines: / Dinner BG / Medicines: / Bedtime BG / Medicines: / Date: Breakfast BG / Medicines: / Lunch BG / Medicines: / Dinner BG / Medicines: / Bedtime BG / Medicines: / Notes: This information is not intended to replace advice given to you by your health care provider. Make sure you discuss any questions you have with your health care provider. Document Released: 05/11/2005 Document Revised: 03/21/2019 Document Reviewed: 03/05/2017 Elsevier Patient Education 2020 [employer]. Daily Weight Record It is important to weigh yourself daily. To do this: Make sure you use a reliable scale. Use the same scale each day. Keep this daily weight chart near your scale. Weigh yourself each morning at the same time. Before weighing yourself: ? Take off your shoes. ? Make sure you are wearing the same amount of clothing each day. Write down your weight in the spaces on the form. Compare today's weight to yesterday's weight. Bring this form with you to your follow-up visits with your health care provider. Call your health care provider if you have concerns about your weight, including rapid weight gain or loss. Date: Weight: Date: Weight: Date: Weight: Date: Weight: Date: Weight: Date: Weight: Date: Weight: Date: Weight: Date: Weight: Date: Weight: Date: Weight: Date: Weight: Date: Weight: Date: Weight: Date: Weight: Date: Weight: Date: Weight: Date: Weight: Date: Weight: Date: Weight: Date: Weight: Date: Weight: Date: Weight: Date: Weight: Date: Weight: Date: Weight: Date: Weight: Date: Weight: Date: Weight: Date: Weight: Date: Weight: Date: Weight: Date: Weight: Date: Weight: Date: Weight: Date: Weight: Date: Weight: Date: Weight: Date: Weight: Date: Weight: Date: Weight: Date: Weight: Date: Weight: Date: Weight: Date: Weight: Date: Weight: Date: Weight: Date: Weight: Date: Weight: Date: Weight: This information is not intended to replace advice given to you by your health care provider. Make sure you discuss any questions you have with your health care provider. Document Released: 08/19/2007 Document Revised: 06/06/2018 Document Reviewed: 06/06/2018 Elsevier Patient Education 2020 Elsevier Inc. Additional Information VACCINATE! IT SAVES LIVES! Members of the community who have not yet received the COVID-19 vaccine and would like to receive it can visit one of [facility] vaccine clinics. There are many vaccine clinic locations within the [facility]. For locations and available times, please visit https://gettheshot.coronavirus.o hio.gov/. It is important to note that some COVID mobile vaccine clinics are held outdoors and may be canceled in rainy or stormy conditions. To learn more about pediatric vaccinations (ages 5-11), we invite you to visit the [facility] webpage. [email or web address] To learn more about the COVID-19 vaccine, we invite you to visit the CDC website for a list of frequently asked questions.https://www.cdc.gov/co ronavirus/2019-ncov/vaccines/faq .html [facility] Patient Portal Access Instructions: Stay connected with your healthcare team and access your personal medical information anytime with the [facility] Patient Portal. Please follow the directions below to create your [facility] account: 1.Access the email account you provided upon registration to the hospital/physician office.2.Look for an invitation email from [facility].3.Open the email and access the invitation link: Accept Invitation to [facility].4.Fill in the required nguyễn to create your account. To access your account, visit [employer]. Click the blue button labeled Access Patient Portal and then log in with the username and password that you created in the steps above. You will be able to view your test results, lab results, a summary of your visits, upcoming appointments and more. There is also a convenient messaging option where you can send secure messages to your provider. In addition, you will have the ability to download any documents or summaries to your computer and/or send the information securely to a physician. Remember that your healthcare information is confidential, so carefully consider who you will allow to register on the [facility] Patient Portal for access to your information. You can also access the [facility] Patient Portal on the [place]. Simply click on Patient Portal and then log into your account. If you would like to receive a full copy of your medical records, please contact the [facility] Medical Records Department by calling [phone], Wednesday through Wednesday between 8 a.m. and 4:30 p.m. HOW TO SAFELY DISPOSE OF PRESCRIPTION MEDICATIONS Please use one of the following methods to safely dispose of your unused medications. 1.Use a drug disposal kit: the drug disposal pouch allows you to safely discard your old and unused drugs. Ask your nurse to give you one when you are discharged.2.Visit a local take-back location: Many local pharmacies and police departments have programs that collect old and unwanted prescription drugs. Call your local pharmacy or go to http://[employer]/9H1Zs3x to find one close to you.3.Make use of household items: Use cat litter or old coffee grounds to dispose medications if other options are not available. Mix your drugs with these household products, seal them in an airtight container and throw it into the garbage. Call [facility]: [phone] to be sure your drugs can be disposed of in this way. Some medicines may require a different approach.4.Never flush your medications down the toilet. IF YOU HAVE BEEN PRESCRIBED AN OPIOID FOR PAIN If you have been prescribed an opioid (such as hydrocodone, oxycodone or morphine), it is critical to understand the possible side effects and risks of opioid pain medications. Even when taken as directed, opioids can have several side effects including: Tolerance, meaning you might need to take more of a medication for the same pain relief. Nausea, vomiting and/or constipation. Sleepiness, dizziness, dry mouth, confusion, depression or itching. Physical dependence, meaning you have withdrawal symptoms when a medication is stopped, can develop within a few days. KNOW YOUR RESPONSIBILITIES It is important to know exactly how much and how often to take the opioid pain medications you are prescribed. Never take opioids in higher amounts or more often than prescribed. Do not combine opioids with alcohol or other drugs that cause drowsiness, such as benzodiazepines, also known as benzos, including diazepam and alprazolam, muscle relaxants or sleep aids. Never sell or share prescription opioids. This is illegal. Store opioids in a secure place and out of reach of others (including children, family, friends and visitors). The last page of this document has been signed and retained as a CHART COPY. Signatures Patient Education Materials Stroke Prevention, [facility] Discharge After a Stroke Fall Prevention in the Home, Adult, Fjok-fm-Ibsk Form - Daily Diabetes Record Form - Daily Weight Record Medication Leaflets My discharge plan and instructions have been reviewed and explained to me and I,CABRERA SOTELO understand my current condition and have read and understand these discharge instructions. I have received a written copy of the plan/instructions. If I have questions, I am aware that I should contact my doctor. 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 Signature: Date/Time: Relationship to Patient: Witness Name/Signature: Date/Time: [facility] 12-09-2023 Physical medicine and rehab Discharge summary Rehab Note Chief Complaint: Seeing this patient for reevaluation therapy progress, recent hemiparesis, CVA, respiratory failure, and hyperglycemia History of Present Illness: 53-year-old male admitted to [place] inpatient rehab unit from [facility] stay 11/12 - 11/18 who has a history of hypertension, diastolic CHF, CVA with left facial droop in 2014, hyperlipidemia, and depression who presented to hospital with right-sided weakness and slurred speech for [address] score [address] of head and CTA of head and neck was negative. Aspirin changed to Plavix 75 mg daily. Home Crestor 20 mg daily was increased to 40 mg. Hemoglobin A1c 9.2%, Lantus was initiated in addition to the sliding scale insulin. MRI showed left basal ganglia stroke. Noted with worsening symptoms during hospital course for which stat CT head obtained showing possible evolving of the stroke. Neurology did recommend 30-day CardioNet monitor and continue with only Plavix as patient was previously on aspirin. Aspirin remains on hold. TTE negative for shunt, normal ejection fraction, 55 to 60%. SHRUTHI negative for vegetation or thrombus. Doppler bilateral lower extremities negative for DVT/SVT. During inpatient rehab course multiple imaging was done. There was concern for worsening vision and worsening weakness, CT of head was obtained showing no acute abnormalities. We did obtain chest x-ray as patient had worsening respiratory status with hypoxia. Prednisone burst was added, currently tapering at 40 mg daily, 76 22. Patient's respiratory status has significantly improved. He did require oxygen supplementation, currently weaned to room air. He does state his breathing is more comfortable. He has been monitoring his blood sugars as his blood sugars have gone higher as patient was on the prednisone. He tells me his appetite has been good. He continues on a modified diet regular food with nectar thick liquids. Does not like the texture of the liquids but he has been tolerating them. Gabapentin was added for neuropathic pain. Patient has been tolerating this. Right-sided weakness continues but improved. Vision has improved as well. He does report occasional blurry vision but is improving. Has been working with PT/OT/ST. He is planning to discharge today, will return home with his . Will have outpatient PT and ST. Medications reviewed. Discussed with nursing staff. Will ensure that he has proper prescriptions for discharge planning. Medication List Active Medications Ordered acetaminophen: 650 mg, 2 tab(s), Oral, q4h, PRN: Muscle pain. albuterol-ipratropium: 3 mL, Inhalation, QIDRT. Al hydroxide/Mg hydroxide/simethicone: 30 mL, Oral, q6h, PRN: Indigestion. carvedilol: 6.25 mg, 1 tab(s), Oral, BID. clopidogrel: 75 mg, 1 tab(s), Oral, qDay. docusate: 100 mg, 1 cap(s), Oral, BID, PRN: Constipation. furosemide: 20 mg, 1 tab(s), Oral, qDay. gabapentin: 100 mg, 1 cap(s), Oral, BID. glipiZIDE: 5 mg, 1 tab(s), Oral, qDay. glucagon: 1 mg, 1 mL, Intramuscular, AsDirected, PRN: Hypoglycemia. glucose: 12.5 gram(s), 25 mL, IV Push, AsDirected, PRN: Hypoglycemia. glucose: 16 gram(s), 4 tab(s), Chewed, AsDirected, PRN: Hypoglycemia. glycerin: 1 supp, Rectal, Daily, PRN: Constipation. guaiFENesin: 600 mg, 1 tab(s), Oral, BID. insulin glargine: 17 unit(s), 0.17 mL, 0 mL/hr, Subcutaneous (INT), qHS. loperamide: 2 mg, 1 cap(s), Oral, TID, PRN: Diarrhea. loratadine: 10 mg, 1 tab(s), Oral, qHS. losartan: 100 mg, 1 tab(s), Oral, Daily. magnesium hydroxide: 30 mL, Oral, Daily, PRN: Constipation. melatonin: 3 mg, 1 tab(s), Oral, qHS. menthol topical: 1 parish, Topical, q4h, PRN: Muscle pain. menthol-zinc oxide topical: 1 parish, Topical, amhs. metFORMIN: 500 mg, 1 tab(s), Oral, qDay. multivitamin: 1 tab(s), Oral, Daily. omega-3 polyunsaturated fatty acids: 1,000 mg, 1 cap(s), Oral, qDay. ondansetron: 4 mg, 1 tab(s), Oral, q6h, PRN: Nausea. pantoprazole: 20 mg, 1 tab(s), Oral, qDayAC. polyethylene glycol 3350: 17 gram(s), 15 mL, Oral, qDay, PRN: Constipation. predniSONE: 40 mg, 2 tab(s), Oral, qDayM. rosuvastatin: 40 mg, 2 tab(s), Oral, Daily. sertraline: 100 mg, 1 tab(s), Oral, qDay. Prescribed albuterol-ipratropium: 3 mL, Inhalation, QID, 30 EA, 0 Refill(s). carvedilol: 6.25 mg, 1 tab(s), Oral, BID, 60 tab(s), 0 Refill(s). clopidogrel: 75 mg, 1 tab(s), Oral, qDay, 30 tab(s), 0 Refill(s). furosemide: 20 mg, 1 tab(s), Oral, qDay, 30 tab(s), 0 Refill(s). gabapentin: 100 mg, 1 cap(s), Oral, BID, 60 cap(s), 0 Refill(s). glipiZIDE: 5 mg, 1 tab(s), Oral, qDay, 30 tab(s), 0 Refill(s). insulin glargine: 17 unit(s), Subcutaneous (INT), qHS, 15 mL, 0 Refill(s). losartan: 100 mg, 1 tab(s), Oral, Daily, 30 tab(s), 0 Refill(s). metFORMIN: 500 mg, 1 tab(s), Oral, qDay, 30 tab(s), 0 Refill(s). pantoprazole: 20 mg, 1 tab(s), Oral, qDayAC, 30 tab(s), 0 Refill(s). rosuvastatin: 40 mg, 2 tab(s), Oral, Daily, 60 tab(s), 0 Refill(s). sertraline: 100 mg, 1 tab(s), Oral, qDay, 30 tab(s), 0 Refill(s). Documented acetaminophen: 650 mg, Oral, q4h, PRN: Muscle pain, 0 Refill(s). guaiFENesin: 600 mg, 1 tab(s), Oral, BID, 0 Refill(s). herbal/nutritional product: 1 cap(s), Oral, Daily, 0 Refill(s). loratadine: 10 mg, 1 tab(s), Oral, qHS, 0 Refill(s). melatonin: 3 mg, 1 tab(s), Oral, qHS, 0 Refill(s). multivitamin: 1 tab(s), Oral, Daily, 0 Refill(s). omega-3 polyunsaturated fatty acids: 1,000 mg, 1 cap(s), Oral, qDay, 90 cap(s), 0 Refill(s). Medications Inactivated in the Last 72 Hours carvedilol: 6.25 mg, 1 tab(s), Oral, BID, 180 tab(s), 0 Refill(s). clopidogrel: 75 mg, 1 tab(s), Oral, qDay, 0 Refill(s). enoxaparin: 40 mg, 0.4 mL, Subcutaneous, qDay. furosemide: 20 mg, 1 tab(s), Oral, qDay, 30 tab(s), 0 Refill(s). glipiZIDE: 10 mg, 1 tab(s), Oral, qDay, 30 tab(s), 0 Refill(s). insulin glargine: 15 unit(s), Subcutaneous (INT), qHS, 0 Refill(s). losartan: 50 mg, 1 tab(s), Oral, Daily, 100 tab(s), 0 Refill(s). metFORMIN: 500 mg, 1 tab(s), Oral, qDay, 30 tab(s), 0 Refill(s). methylPREDNISolone: 40 mg, 1 mL, IV Push, BID. nitrofurantoin: 100 mg, 1 cap(s), Oral, BIDM. predniSONE: 40 mg, 2 tab(s), Oral, qDayM, 6 tab(s), 0 Refill(s). rosuvastatin: 40 mg, 2 tab(s), Oral, Daily, 0 Refill(s). sertraline: 50 mg, 1 tab(s), Oral, qDay, 0 Refill(s). sertraline: 50 mg, 1 tab(s), Oral, qDay, 30 tab(s), 0 Refill(s). tiZANidine: 2 mg, 1 tab(s), Oral, BID, PRN: Muscle spasm. Social history: Social support: Lives with spouse Home set-up: Single level home. First-floor bedroom, bathroom, laundry Barriers to discharge: Time since onset, safety awareness, past medical history Review of Systems: General: Appetite is good. Tolerating current diet. Sleeping well at night Respiratory: Denies shortness of breath, congestion, or cough Cardiovascular: Denies chest pain, heart palpitations, or chest pressure Gastrointestinal: Denies nausea, vomiting, loose stools, or constipation Genitourinary: Denies suprapubic tenderness, CVA tenderness, or bladder distention Musculoskeletal: Denies any uncontrolled pain Psychiatric: No reported change in cognition Vitals Signs(Last 24 hrs)__Last Charted Minimum Maximum Temp36.3(DEC 07 17:04)36.3(DEC 07 17:04)36.4(DEC 07 08:59) SBPH 142(DEC 07:22)140(DEC 07 17:04)H 144(DEC 07 08:59) DBP78(DEC 07:22)68(DEC 07 17:04)H 90(DEC 07 08:59) Physical Exam: General: Alert and oriented, no acute distress. Sitting in wheelchair, appears comfortable, no acute pain. Calm and talkative, interactive. Good eye contact Respiratory: Lungs clear to auscultation nonlabored on room air; no cough/conversational dyspnea Cardiovascular: Heart rate regular without heart murmur/tachycardia Gastrointestinal: Bowel sounds present x 4 with abdomen soft, nondistended, nontender Arterial: 2/4 distal pulses bilateral lower extremities Arterial: 2/4 distal pulses bilateral lower extremities Edema: No edema BLE, compression stockings on Musculoskeletal: Mild polyarthritis Spinal Curvatures: Slight increased thoracic kyphosis. No spinal or paraspinal tenderness Weight bearing status/transfers/ADLs: Weightbearing as tolerated. Ambulated 50 feet with rolling walker and partial/moderate assist. Not again for stairs with step to pattern, with greater than 50% after descending with left knee buckling. Less than 50% assist for car transfer. Right lower extremity management Skin: Thin, dry, and atrophic. Neurological: Cranial nerves intact Right hemiparesis Sensation normal distally 5/5 left upper extremity strength 0/5 right upper extremity strength 5/5 left lower extremity strength 2 -/5 right lower extremity strength Absent right hand grasp Normal left hand grasp Normal left shoulder range of motion Decreased right shoulder range of motion 2/4 bilateral upper extremity reflexes 2/4 bilateral lower extremity reflexes Psychiatric: Mood and cognition stable. Pleasant and cooperative. Assessment and plan: Patient for discharge the present time. Summary of his rehab and hospital stay it as noted above. Is currently ambulating 30 feet with rolling walker with partial to moderate assist. Able navigate 4 stairs. He is going home with outpatient PT and speech therapy. Also home with the assistance of 11/01 from family. Discharge the present time. There is factor modification for the underlying CVA in place counseled in regards to diabetic management. Discussed with patient and therapy team PMH/SH reviewed and unchanged. Risks/benefits of meds, treatments considered. Therapy notes reviewed. Discussed with staff. Medications reviewed and up to date This document was transcribed using dictation software and may contain typographical errors. Bradley Balderas RN, am scribing for , and in the presence of Dr. Harris. I, Dr. Harris, personally performed the services described in this documentation, as scribed by, Bradley CORRALES in my presence and it is both accurate and complete. Digitally Signed by MIKEY HARRIS DO on 12/09/2023 07:03 PM [facility] 12-08-2023 Nurse Progress note Nursing GG Entered On: 12/08/2023 18:56 EDT Performed On: 12/08/2023 18:56 EDT by Lexie Lopez LPN Nursing GG's OT GG Grid Putting on/taking off footwear : Partial/Moderate Roll left and right : Partial/Moderate Sit to lying : Partial/Moderate Lying to sitting on side of bed : Partial/Moderate Lexie Lopez LPN - 12/08/2023 18:56 EDT Digitally Signed by Lexie Lopez LPN on 12/08/2023 06:56 PM [facility] 12-08-2023 Respiratory therapy Hospital Progress note Pt/family state that he has a CPAP unit at home and has not worn it for 10 years or better. He is being discharged from [place] tomorrow 12-09-23. I have encouraged him//daughter to use. I have stressed the indications/benefits as well as risks for non-use. Pt states he will wear when he gets home. Digitally Signed by Tamra Keating on 12/08/2023 12:03 PM [facility] 12-08-2023 Physical medicine and rehab Progress note Subjective Patient states he is doing okay this morning. He reports improvement in dyspnea overnight. Prednisone 20 mg daily was initiated yesterday. SpO2 currently ranging 92-94% on 3 L of oxygen per nasal cannula. [place] any urinary urgency, frequency, or dysuria, Macrobid is scheduled to end today. Patient reports he he feels more rested and not with daytime somnolence from not taking the as needed Zanaflex. Reports bowels are moving. Objective General: No acute distress, alert and oriented. Sitting up in wheelchair, working with therapy. Appears comfortable, and does not appear in acute pain. Pleasant and cooperative. Good eye contact with flat affect. Answers questions appropriately. HEENT: No nasal drainage, EOMI, moist mucous membranes Respiratory: Lungs are clear to auscultation. Respirations are unlabored on room air. No conversational dyspnea. Nasal congestion and nonproductive cough present Cardiovascular: Heart rate is regular. No bradycardia, tachycardia, or murmur Edema/Varicosities of Extremities: No edema to the bilateral extremities. GIL hose are in place to the bilateral lower extremities Gastrointestinal: Abdomen is nontender, soft, and nondistended. Bowel sounds are present in all 4 quadrants Genitourinary: No suprapubic tenderness, CVA tenderness, or bladder distention Neurological: Slight right-sided facial droop, dysarthria VITALS [id number] t(kg) 12/07 05:4436.4--[id number] 90.0 12/06 21:10----[id number] 88.8 12/06 16:4836.6--[id number]/16 91.2 12/06 15:25 RA06/14 92.2 12/06 09:0236.3--[id number]/13 94.5 24 Hr Tmax: 36.6 at 12/06 16:48 36 Hr Tmax: 36.7 at 12/05 21:31 Vital Signs are the last 5 in the past 48 hours. Weights display the last 5 within 7 days. Initial Wt: 11/18 94.5 kg 208 lb Current Wt: 12/06 90.0 kg 198 lb LABS No 36 Hour Lab Data Medications Active Inpt Meds: albuterol-ipratropium (DuoNeb) Start: 11/30/23 9:00:00 EDT, Dose = 3 mL, Soln, Inhalation, QIDRT, 11/30/23 7:53:00 EDT carvedilol (Coreg) Start: 11/19/23 21:04:00 EDT, Dose = 6.25 mg, = 1 tab(s), Oral, BID, 0, 11/19/23 21:04:00 EDT clopidogrel (Plavix) Start: 11/20/23 9:00:00 EDT, Dose = 75 mg, = 1 tab(s), Oral, qDay, 0, 11/19/23 21:05:00 EDT furosemide Start: 11/20/23 9:00:00 EDT, Dose = 20 mg, = 1 tab(s), Oral, qDay, 0, 11/19/23 21:05:00 EDT gabapentin Start: 11/23/23 16:00:00 EDT, Dose = 100 mg, = 1 cap(s), Oral, BID, 0, 11/23/23 10:46:00 EDT glipiZIDE (glipiZIDE 5 mg oral tablet) Start: 12/03/23 7:46:00 EDT, Dose = 5 mg, = 1 tab(s), Oral, qDay, 0, 12/03/23 7:40:00 EDT guaiFENesin (Mucinex 600 mg oral tablet, extended release) Start: 11/28/23 10:11:00 EDT, Dose = 600 mg, = 1 tab(s), Oral, BID, 11/28/23 10:11:00 EDT insulin glargine (Lantus) Start: 12/04/23 21:00:00 EDT, Dose = 17 unit(s), = 0.17 mL, Subcutaneous (INT), qHS, Rate: 0 mL/hr, Infuse over: 0 minute(s), 12/04/23 12:38:00 EDT loratadine (Claritin) Start: 11/30/23 21:00:00 EDT, Dose = 10 mg, = 1 tab(s), Oral, qHS, 11/30/23 7:54:00 EDT losartan Start: 11/20/23 9:00:00 EDT, Dose = 100 mg, = 1 tab(s), Oral, Daily, 0, 11/20/23 8:11:00 EDT melatonin Start: 12/02/23 21:00:00 EDT, Dose = 3 mg, = 1 tab(s), Oral, qHS, 12/02/23 7:12:00 EDT menthol-zinc oxide topical (Calmoseptine or equivalent topical ointment) Start: 11/22/23 7:10:00 EDT, Dose = 1 parish, Topical, amhs, Apply to: coccyx, Ointment, 11/22/23 7:10:00 EDT metFORMIN (metFORMIN 500 mg oral tablet (IR)) Start: 11/20/23 8:00:00 EDT, Dose = 500 mg, = 1 tab(s), Oral, qDay, 0, 11/19/23 21:05:00 EDT multivitamin (Multivitamin) Start: 11/20/23 12:00:00 EDT, Dose = 1 tab(s), Tab, Oral, Daily, 0, 11/19/23 21:05:00 EDT nitrofurantoin (Macrobid) Start: 12/03/23 23:29:00 EDT, Dose = 100 mg, = 1 cap(s), Oral, BIDM, 5 day(s), Stop: 12/08/23 17:00:00 EDT, 0, 12/03/23 23:28:00 EDT omega-3 polyunsaturated fatty acids (Fish Oil 1000 mg oral capsule) Start: 11/20/23 9:00:00 EDT, Dose = 1,000 mg, = 1 cap(s), Oral, qDay, 0, 11/19/23 21:05:00 EDT pantoprazole (Protonix) Start: 12/03/23 7:46:00 EDT, Dose = 20 mg, = 1 tab(s), Oral, qDayAC, 0, 12/03/23 7:39:00 EDT predniSONE Start: 12/07/23 8:15:00 EDT, Dose = 40 mg, = 2 tab(s), Oral, qDayM, 4 day(s), Stop: 12/11/23 8:00:00 EDT, give with food, 0, 12/07/23 8:15:00 EDT rosuvastatin Start: 11/20/23 9:00:00 EDT, Dose = 40 mg, = 2 tab(s), Oral, Daily, 0, 11/19/23 21:05:00 EDT sertraline Start: 11/24/23 9:00:00 EDT, Dose = 100 mg, = 1 tab(s), Oral, qDay, 0, 11/24/23 9:00:00 EDT Active PRN Meds: Al hydroxide/Mg hydroxide/simethicone (Maalox) Start: 11/19/23:36:00 EDT, Dose = 30 mL, Susp, Oral, q6h, PRN, Indigestion, 0, 11/19/23:36:00 EDT acetaminophen (Tylenol) Start: 11/19/23:36:00 EDT, Dose = 650 mg, = 2 tab(s), Oral, q4h, PRN, Muscle pain, 11/19/23:36:00 EDT docusate (Colace) Start: 11/19/23:36:00 EDT, Dose = 100 mg, = 1 cap(s), Oral, BID, PRN, Constipation, 11/19/23:36:00 EDT glucagon (GlucaGen) Start: 11/19/23:36:00 EDT, Dose = 1 mg, = 1 mL, Intramuscular, AsDirected, PRN, Hypoglycemia, if unresponsive, NO IV ACCESS & blood glucose less than 70mg/dL. If still unresponsive after 2 minutes, REPEAT x1., 0, 11/19/23:36:00 EDT glucose (Dextrose 50% IV Push) Start: 11/19/23:36:00 EDT, Dose = 12.5 gram(s), = 25 mL, IV Push, AsDirected, PRN, Hypoglycemia, if unresponsive WITH IV ACCESS & blood glucose less than 70mg/dL. If still unresponsive after 2 minutes, REPEAT x1., 11/19/23:36:00 EDT glucose Start: 11/19/23:36:00 EDT, Dose = 16 gram(s), = 4 tab(s), Chewed, AsDirected, PRN, Hypoglycemia, DIABETIC PATIENT if responsive & blood glucose less than 70mg/dL. If blood glucose less than 70mg/dL after 15 minutes, REPEAT x1., 0, 11/19/23 21:3... glycerin (glycerin adult rectal suppository) Start: 11/19/23:36:00 EDT, Dose = 1 supp, Supp, Rectal, Daily, PRN, Constipation, 11/19/23:36:00 EDT loperamide (Imodium A-D) Start: 11/30/23 7:54:00 EDT, Dose = 2 mg, = 1 cap(s), Oral, TID, PRN, Diarrhea, 11/30/23 7:54:00 EDT magnesium hydroxide (Milk of Magnesia) Start: 11/19/23 21:36:00 EDT, Dose = 30 mL, Susp-Oral, Oral, Daily, PRN, Constipation, 11/19/23 21:36:00 EDT menthol topical (Biofreeze gel packet) Start: 11/23/23 10:47:00 EDT, Dose = 1 parish, Topical, q4h, PRN, Muscle pain, Apply to: right shoulder, Gel, 11/23/23 10:47:00 EDT ondansetron (Zofran) Start: 12/02/23 14:32:00 EDT, Dose = 4 mg, = 1 tab(s), Oral, q6h, PRN, Nausea, 12/02/23 14:32:00 EDT polyethylene glycol 3350 (Miralax Powder Packet) Start: 11/19/23 21:36:00 EDT, Dose = 17 gram(s), = 15 mL, Oral, qDay, PRN, Constipation, 11/19/23 21:36:00 EDT One Time Meds: None Active IV Meds: None Problems (7) Blindness of one eye (557833254) Hyperlipidemia (30304278) Hypertension (6681017842) Ischemic leg (617422303) Ischemic stroke (5303481871) Morbid obesity (671907750) Systolic heart failure (2089777971) ASSESSMENT/PLAN: Acute ischemic CVA. Plan at this time is risk factor modification blood pressure management as well as diabetic control, aspirin changed to Plavix. High-dose statin in place. Acute right-sided hemiparesis, working with PT and OT services for mobility assistance Hyperlipidemia high-dose statin, tolerating without myalgias Insulin-dependent type 2 diabetes A1c 9.2, patient was started on the Lantus, also on metformin plus glipizide, will reassess with plan to likely come off the glipizide and titrate Lantus as tolerated. Blood sugars remain stable, monitoring ACHS MRI reviewed showing a left basal ganglia infarct, patient did have a follow-up CT scan which showed possible evolving stroke 30-day CardioNet monitor ordered Echo showing normal ejection fraction without vegetation or thrombus Bilateral lower extremity edema Dopplers negative for DVT Diastolic congestive heart failure, on chronic Lasix therapy, edema remained stable Hypertension Coreg plus losartan, blood pressures stable Dysphagia on modified diet with mildly thick liquids, trending hydration status closely Adjustment reaction with history of depression continue Zoloft, Zoloft has been increased during patient's stay. Neuropsychology is following, appreciate recommendations. 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 Denies any active bleeding Trial of gabapentin, tolerating during the day, dose scheduled at 4 PM and 10 PM after discussion with him and family, tolerating. Denies any uncontrolled pain. Blood pressures holding steady Right shoulder pain, Biofreeze as needed. Recent suicidal ideation, he has no suicidal ideation no homicidal ideation, no thoughts of this or plan. Video monitoring discontinued Muscle spasms in the left thigh, Zanaflex 2 mg twice daily as needed, Biofreeze is available every 4 as needed Ongoing cough, congestion, and shortness of breath. Continues on scheduled DuoNebs 4 times daily, Claritin, and Mucinex. COVID, flu, and RSV negative. Breathing comfortably on room air this morning on exam. Loose stools, as needed Imodium available. Reports improvement in symptoms this morning. Abdominal exam remains benign Insulin-dependent diabetes mellitus type 2, due to hypoglycemia glipizide decreased 7.5 mg daily. Blood sugars are showing improvement Poor vision with changes in peripheral vision, pupils are reactive but appear to be different sizes. Ongoing right-sided weakness CT head obtained yesterday and reviewed at this time showing involving left basal ganglia and posterior limb of internal capsule infarct, no new infarct seen. Sinusitis. Patient does state vision improved today. Denies any dizziness or lightheadedness but denies any headache Ongoing dyspnea and cough/congestion, recent addition of prednisone 20 mg daily x 4 days. For GI prophylaxis will opt out on Protonix 40 mg daily without stop date. Chest x-ray obtained and reviewed, negative. Ongoing hypoglycemia, further decrease the glipizide to 5 mg daily. Monitoring blood sugars closely Insomnia, melatonin was added Concerns for vasovagal episode yesterday while having a bowel movement. No further episodes have been reported. Discussed with patient. CT of head as noted above. Continue close monitoring Daytime somnolence and fatigue, as needed Zanaflex discontinued per request Continue to work with PT, OT, and ST services. Currently requiring moderate assist with all transfers, utilizes wheelchair independently for mobilization. Plan is to discharge tomorrow with home health care services and family. Continues on the prednisone, respiratory status continues to improve today. Working closely with therapy and social science instructor to make appropriate discharge planning Medications reviewed and up to date This document was transcribed using dictation software and may contain typographical errors. Jose Balderas RN, am scribing for , and in the presence of Dr. Harris. I, Dr. Harris, personally performed the services described in this documentation, as scribed by, Jose Ernandez RN in my presence and it is both accurate and complete. Digitally Signed by MIKEY HARRIS DO on 12/08/2023 03:15 PM Deena Watt 12-07-2023 Hospital Discharge instructions Patient Education 12/07/2023 15:50:12 Stroke Prevention, Cxtu-yb-Pthu Stroke Prevention Some medical conditions and lifestyle choices can lead to a higher risk for a stroke. You can help to prevent a stroke by making nutrition, lifestyle, and other changes. What nutrition changes can be made? Eat healthy foods. ?Choose foods that are high in fiber. These include: ?Fresh fruits. ?Fresh vegetables. ?Whole grains. ?Eat at least 5 or more servings of fruits and vegetables each day. Try to fill half of your plate at each meal with fruits and vegetables. ?Choose lean protein foods. These include: ?Lowfat (lean) cuts of meat. ?Chicken without skin. ?Fish. ?Tofu. ?Beans. ?Nuts. ?Eat low-fat dairy products. ?Avoid foods that: ?Are high in salt (sodium). ?Have saturated fat. ?Have trans fat. ?Have cholesterol. ?Are processed. ?Are premade. Follow eating guidelines as told by your doctor. These may include: ?Reducing how many calories you eat and drink each day. ?Limiting how much salt you eat or drink each day to 1,500 milligrams (mg). ?Using only healthy fats for cooking. These include: ?[place] oil. ?Canola oil. ?Smilax oil. ?Counting how many carbohydrates you eat and drink each day. What lifestyle changes can be made? Try to stay at a healthy weight. Talk to your doctor about what a good weight is for you. Get at least 30 minutes of moderate physical activity at least 5 days a week. This can include: ?Fast walking. ?Biking. ?Swimming. Do not use any products that have nicotine or tobacco. This includes cigarettes and e-cigarettes. If you need help quitting, ask your doctor. Avoid being around tobacco smoke in general. Limit how much alcohol you drink to no more than 1 drink a day for non women and 2 drinks a day for men. One drink equals 12 oz of beer, 5 oz of wine, or 1 oz of hard liquor. Do not use drugs. Avoid taking control pills. Talk to your doctor about the risks of taking control pills if: ?You are over 35 years old. ?You smoke. ?You get migraines. ?You have had a blood clot. What other changes can be made? Manage your cholesterol. ?It is important to eat a healthy diet. ?If your cholesterol cannot be managed through your diet, you may also need to take medicines. Take medicines as told by your doctor. Manage your diabetes. ?It is important to eat a healthy diet and to exercise regularly. ?If your blood sugar cannot be managed through diet and exercise, you may need to take medicines. Take medicines as told by your doctor. Control your high blood pressure (hypertension). ?Try to keep your blood pressure below 130/80. This can help lower your risk of stroke. ?It is important to eat a healthy diet and to exercise regularly. ?If your blood pressure cannot be managed through diet and exercise, you may need to take medicines. Take medicines as told by your doctor. ?Ask your doctor if you should check your blood pressure at home. ?Have your blood pressure checked every year. Do this even if your blood pressure is normal. Talk to your doctor about getting checked for a sleep disorder. Signs of this can include: ?Snoring a lot. ?Feeling very tired. Take hybu-xgi-ldfzjhm and prescription medicines only as told by your doctor. These may include aspirin or blood thinners (antiplatelets or anticoagulants). Make sure that any other medical conditions you have are managed. Where to find more information [place] Stroke Association: www.strokeassociation.org National Stroke Association: www.stroke.org Get help right away if: You have any symptoms of stroke. BE FAST is an easy way to remember the main warning signs: ?B - Balance. Signs are dizziness, sudden trouble walking, or loss of balance. ?E - Eyes. Signs are trouble seeing or a sudden change in how you see. ?F - Face. Signs are sudden weakness or loss of feeling of the face, or the face or eyelid drooping on one side. ?A - Arms. Signs are weakness or loss of feeling in an arm. This happens suddenly and usually on one side of the body. ?S - Speech. Signs are sudden trouble speaking, slurred speech, or trouble understanding what people say. ?T - Time. Time to call emergency services. Write down what time symptoms started. You have other signs of stroke, such as: ?A sudden, very bad headache with no known cause. ?Feeling sick to your stomach (nausea). ?Throwing up (vomiting). ?Jerky movements you cannot control (seizure). These symptoms may represent a serious problem that is an emergency. Do not wait to see if the symptoms will go away. Get medical help right away. Call your local emergency services (911 in the [place] Do not drive yourself to the hospital. Summary You can prevent a stroke by eating healthy, exercising, not smoking, drinking less alcohol, and treating other health problems, such as diabetes, high blood pressure, or high cholesterol. Do not use any products that contain nicotine or tobacco, such as cigarettes and e-cigarettes. Get help right away if you have any signs or symptoms of a stroke. This information is not intended to replace advice given to you by your health care provider. Make sure you discuss any questions you have with your health care provider. Document Released: 12/06/2012 Document Revised: 08/03/2019 Document Reviewed: 09/08/2017 [email or web address] Patient Education 2020 [email or web address] 12/07/2023 15:50:08 Hospital Discharge After a Stroke Hospital Discharge After a Stroke Being discharged from the hospital after a stroke can feel overwhelming. Many things may be different, and it is normal to feel scared or anxious. Some stroke survivors may be able to return to their homes, and others may need more specialized care on a temporary or permanent basis. Your stroke care team will work with you to develop a discharge plan that is best for you. Ask questions if you do not understand something. Invite a friend or family member to participate in discharge planning. Understanding and following your discharge plan can help to prevent another stroke or other problems. Understanding your medicines After a stroke, your health care provider may prescribe one or more types of medicine. It is important to take medicines exactly as told by your health care provider. Serious harm, such as another stroke, can happen if you are unable to take your medicine exactly as prescribed. Make sure you understand: What medicine to take. Why you are taking the medicine. How and when to take it. If it can be taken with your other medicines and herbal supplements. Possible side effects. When to call your health care provider if you have any side effects. How you will get and pay for your medicines. Medical assistance programs may be able to help you pay for prescription medicines if you cannot afford them. If you are taking an anticoagulant, be sure to take it exactly as told by your health care provider. This type of medicine can increase the risk of bleeding because it works to prevent blood from clotting. You may need to take certain precautions to prevent bleeding. You should contact your health care provider if you have: Bleeding or bruising. A fall or other injury to your head. Blood in your urine or stool (feces). Planning for home safety Take steps to prevent falls, such as installing grab bars or using a shower chair. Ask a friend or family member to get needed things in place before you go home if possible. A therapist can come to your home to make recommendations for safety equipment. Ask your health care provider if you would benefit from this service or from home care. Getting needed equipment Ask your health care provider for a list of any medical equipment and supplies you will need at home. These may include items such as: Walkers. Canes. Wheelchairs. Hand-strengthening devices. Special eating utensils. Medical equipment can be rented or purchased, depending on your insurance coverage. Check with your insurance company about what is covered. Keeping follow-up visits After a stroke, you will need to follow up regularly with a health care provider. You may also need rehabilitation, which can include physical therapy, occupational therapy, or speech-language therapy. Keeping these appointments is very important to your recovery after a stroke. Be sure to bring your medicine list and discharge papers with you to your appointments. If you need help to keep track of your schedule, use a calendar or appointment reminder. Preventing another stroke Having a stroke puts you at risk for another stroke in the future. Ask your health care provider what actions you can take to lower the risk. These may include: Increasing how much you exercise. Making a healthy eating plan. Quitting smoking. Managing other health conditions, such as high blood pressure, high cholesterol, or diabetes. Limiting alcohol use. Knowing the warning signs of a stroke Make sure you understand the signs of a stroke. Before you leave the hospital, you will receive information outlining the stroke warning signs. Share these with your friends and family members. BE FAST is an easy way to remember the main warning signs of a stroke: B - Balance. Signs are dizziness, sudden trouble walking, or loss of balance. E - Eyes. Signs are trouble seeing or a sudden change in vision. F - Face. Signs are sudden weakness or numbness of the face, or the face or eyelid drooping on one side. A - Arms. Signs are weakness or numbness in an arm. This happens suddenly and usually on one side of the body. S - Speech. Signs are sudden trouble speaking, slurred speech, or trouble understanding what people say. T - Time. Time to call emergency services. Write down what time symptoms started. Other signs of stroke may include: A sudden, severe headache with no known cause. Nausea or vomiting. Seizure. These symptoms may represent a serious problem that is an emergency. Do not wait to see if the symptoms will go away. Get medical help right away. Call your local emergency services (911 in the [place] Do not drive yourself to the hospital. Make note of the time that you had your first symptoms. Your emergency responders or emergency room staff will need to know this information. Summary Being discharged from the hospital after a stroke can feel overwhelming. It is normal to feel scared or anxious. Make sure you take medicines exactly as told by your health care provider. Know the warning signs of a stroke, and get help right way if you have any of these symptoms. BE FAST is an easy way to remember the main warning signs of a stroke. This information is not intended to replace advice given to you by your health care provider. Make sure you discuss any questions you have with your health care provider. Document Released: 09/10/2017 Document Revised: 06/10/2018 Document Reviewed: 09/10/2017 [email or web address] Patient Education 2020 [employer]. 12/07/2023 15:50:05 Fall Prevention in the Home, Adult, [place] Fall Prevention in the Home, Adult Falls can cause injuries. They can happen to people of all ages. There are many things you can do to make your home safe and to help prevent falls. Ask for help when making these changes, if needed. What actions can I take to prevent falls? General Instructions Use good lighting in all rooms. Replace any light bulbs that burn out. Turn on the lights when you go into a dark area. Use night-lights. Keep items that you use often in phti-zm-tztqj places. Lower the shelves around your home if necessary. Set up your furniture so you have a clear path. Avoid moving your furniture around. Do not have throw rugs and other things on the floor that can make you trip. Avoid walking on wet floors. If any of your floors are uneven, fix them. Add color or contrast paint or tape to clearly irwin and help you see: ?Any grab bars or handrails. ?First and last steps of stairways. ?Where the edge of each step is. If you use a stepladder: ?Make sure that it is fully opened. Do not climb a closed stepladder. ?Make sure that both sides of the stepladder are locked into place. ?Ask someone to hold the stepladder for you while you use it. If there are any pets around you, be aware of where they are. What can I do in the bathroom? Keep the floor dry. Clean up any water that spills onto the floor as soon as it happens. Remove soap buildup in the tub or shower regularly. Use non-skid mats or decals on the floor of the tub or shower. Attach bath mats securely with double-sided, non-slip rug tape. If you need to sit down in the shower, use a plastic, non-slip stool. Install grab bars by the toilet and in the tub and shower. Do not use towel bars as grab bars. What can I do in the bedroom? Make sure that you have a light by your bed that is easy to reach. Do not use any sheets or blankets that are too big for your bed. They should not hang down onto the floor. Have a firm chair that has side arms. You can use this for support while you get dressed. What can I do in the kitchen? Clean up any spills right away. If you need to reach something above you, use a strong step stool that has a grab bar. Keep electrical cords out of the way. Do not use floor amharic or wax that makes floors slippery. If you must use wax, use non-skid floor wax. What can I do with my stairs? Do not leave any items on the stairs. Make sure that you have a light switch at the top of the stairs and the bottom of the stairs. If you do not have them, ask someone to add them for you. Make sure that there are handrails on both sides of the stairs, and use them. Fix handrails that are broken or loose. Make sure that handrails are as long as the stairways. Install non-slip stair treads on all stairs in your home. Avoid having throw rugs at the top or bottom of the stairs. If you do have throw rugs, attach them to the floor with carpet tape. Choose a carpet that does not hide the edge of the steps on the stairway. Check any carpeting to make sure that it is firmly attached to the stairs. Fix any carpet that is loose or worn. What can I do on the outside of my home? Use bright outdoor lighting. Regularly fix the edges of walkways and driveways and fix any cracks. Remove anything that might make you trip as you walk through a door, such as a raised step or threshold. Trim any bushes or trees on the path to your home. Regularly check to see if handrails are loose or broken. Make sure that both sides of any steps have handrails. Install guardrails along the edges of any raised decks and porches. Clear walking paths of anything that might make someone trip, such as tools or rocks. Have any leaves, snow, or ice cleared regularly. Use sand or salt on walking paths during winter. Clean up any spills in your garage right away. This includes grease or oil spills. What other actions can I take? Wear shoes that: ?Have a low heel. Do not wear high heels. ?Have rubber bottoms. ?Are comfortable and fit you well. ?Are closed at the toe. Do not wear open-toe sandals. Use tools that help you move around (mobility aids) if they are needed. These include: ?Canes. ?Walkers. ?Scooters. ?Crutches. Review your medicines with your doctor. Some medicines can make you feel dizzy. This can increase your chance of falling. Ask your doctor what other things you can do to help prevent falls. Where to find more information Centers for Disease Control and Prevention, [place]: https://cdc.gov National [place] on Aging: https://nz9eoio.medina.nih.gov Contact a doctor if: You are afraid of falling at home. You feel weak, drowsy, or dizzy at home. You fall at home. Summary There are many simple things that you can do to make your home safe and to help prevent falls. Ways to make your home safe include removing tripping hazards and installing grab bars in the bathroom. Ask for help when making these changes in your home. This information is not intended to replace advice given to you by your health care provider. Make sure you discuss any questions you have with your health care provider. Document Released: 04/03/2010 Document Revised: 09/28/2019 Document Reviewed: 01/20/2018 [email or web address] Patient Education 2020 [employer]. 12/07/2023 15:50:03 Form - Daily Diabetes Record Daily Diabetes Record Check your blood glucose (BG) as directed by your health care provider. Use this form to record your BG results as well as any diabetes medicines that you take, including insulin. Bringing a record of your BG results and a list of your current medicines to your health care provider is very helpful in managing your diabetes. These numbers help your health care provider to know whether your diabetes management plan needs to be changed. Patient name: ____ Week of Daily BG results and diabetes medicines Date: Breakfast BG / Medicines: / Lunch BG / Medicines: / Dinner BG / Medicines: / Bedtime BG / Medicines: / Date: Breakfast BG / Medicines: / Lunch BG / Medicines: / Dinner BG / Medicines: / Bedtime BG / Medicines: / Date: Breakfast BG / Medicines: / Lunch BG / Medicines: / Dinner BG / Medicines: / Bedtime BG / Medicines: / Date: Breakfast BG / Medicines: / Lunch BG / Medicines: / Dinner BG / Medicines: / Bedtime BG / Medicines: / Date: Breakfast BG / Medicines: / Lunch BG / Medicines: / Dinner BG / Medicines: / Bedtime BG / Medicines: / Date: Breakfast BG / Medicines: / Lunch BG / Medicines: / Dinner BG / Medicines: / Bedtime BG / Medicines: / Date: Breakfast BG / Medicines: / Lunch BG / Medicines: / Dinner BG / Medicines: / Bedtime BG / Medicines: / Notes: This information is not intended to replace advice given to you by your health care provider. Make sure you discuss any questions you have with your health care provider. Document Released: 05/11/2005 Document Revised: 03/21/2019 Document Reviewed: 03/05/2017 Elsevier Patient Education 2020 [employer] 12/07/2023 15:50:01 Form - Daily Weight Record Daily Weight Record It is important to weigh yourself daily. To do this: Make sure you use a reliable scale. Use the same scale each day. Keep this daily weight chart near your scale. Weigh yourself each morning at the same time. Before weighing yourself: ?Take off your shoes. ?Make sure you are wearing the same amount of clothing each day. Write down your weight in the spaces on the form. Compare today's weight to yesterday's weight. Bring this form with you to your follow-up visits with your health care provider. Call your health care provider if you have concerns about your weight, including rapid weight gain or loss. Date: Weight: Date: Weight: Date: Weight: Date: Weight: Date: Weight: Date: Weight: Date: Weight: Date: Weight: Date: Weight: Date: Weight: Date: Weight: Date: Weight: Date: Weight: Date: Weight: Date: Weight: Date: Weight: Date: Weight: Date: Weight: Date: Weight: Date: Weight: Date: Weight: Date: Weight: Date: Weight: Date: Weight: Date: Weight: Date: Weight: Date: Weight: Date: Weight: Date: Weight: Date: Weight: Date: Weight: Date: Weight: Date: Weight: Date: Weight: Date: Weight: Date: Weight: Date: Weight: Date: Weight: Date: Weight: Date: Weight: Date: Weight: Date: Weight: Date: Weight: Date: Weight: Date: Weight: Date: Weight: Date: Weight: Date: Weight: Date: Weight: Date: Weight: This information is not intended to replace advice given to you by your health care provider. Make sure you discuss any questions you have with your health care provider. Document Released: 08/19/2007 Document Revised: 06/06/2018 Document Reviewed: 06/06/2018 Elsevier Patient Education 2020 [employer]. Follow Up Care 11/19/2023 13:56:16 With:MARTITA ERVIN MD, Internal Medicine Address: [address] [place] [id number]- When:12/10/2023 11:40:00 Comments:Take Discharge Instructions to Dr Visit - With:MAHNAZ MARTINI PA-C Address: [address] [place] [address]- When:12/14/2023 11:00:00 Comments:[facility] 12-07-2023 Nurse Discharge summary Patient states he used to check his own blood sugar with a glucometer and give himself insulin but now since he only has use of his one arm, he will need help. I told him if he can bring his relatives here we can educate them. He says his brother and daughter will be doing it and they dont need educated because they have done it before. [facility] 12-07-2023 Physical medicine and rehab Progress note Rehab Note Chief Complaint: Seeing this patient for reevaluation therapy progress, recent hemiparesis, CVA, respiratory failure, and hyperglycemia History of Present Illness: 53-year-old male admitted to [facility] inpatient rehab unit from [facility] stay 11/12 - 11/18 who has a history of hypertension, diastolic CHF, CVA with left facial droop in 2014, hyperlipidemia, and depression who presented to hospital with right-sided weakness and slurred speech for [address] days[address] score [address] of head and CTA of head and neck was negative. Aspirin changed to Plavix 75 mg daily. Home Crestor 20 mg daily was increased to 40 mg. Hemoglobin A1c 9.2%, Lantus was initiated in addition to the sliding scale insulin. MRI showed left basal ganglia stroke. Noted with worsening symptoms during hospital course for which stat CT head obtained showing possible evolving of the stroke. Neurology did recommend 30-day CardioNet monitor and continue with only Plavix as patient was previously on aspirin. Aspirin remains on hold. TTE negative for shunt, normal ejection fraction, 55 to 60%. SHRUTHI negative for vegetation or thrombus. Doppler bilateral lower extremities negative for DVT/SVT. Today, patient states that he slept well last night, states every day she is going well but better. States that he did a home evaluation yesterday and feels it went really well. States that he is looking forward to discharging later this week. Denies any concerns. States that his breathing is more comfortable, denies any shortness of breath or cough/congestion, does state this has improved. Denies any concerns. States that he is tolerating the nectar thick liquids although he does not want this to be better. Working with PT/OT/ST. Planning for discharge 12/08. Medications reviewed, discussed with nursing staff Medication List Active Medications Ordered acetaminophen: 650 mg, 2 tab(s), Oral, q4h, PRN: Muscle pain. albuterol-ipratropium: 3 mL, Inhalation, QIDRT. Al hydroxide/Mg hydroxide/simethicone: 30 mL, Oral, q6h, PRN: Indigestion. carvedilol: 6.25 mg, 1 tab(s), Oral, BID. clopidogrel: 75 mg, 1 tab(s), Oral, qDay. docusate: 100 mg, 1 cap(s), Oral, BID, PRN: Constipation. enoxaparin: 40 mg, 0.4 mL, Subcutaneous, qDay. furosemide: 20 mg, 1 tab(s), Oral, qDay. gabapentin: 100 mg, 1 cap(s), Oral, BID. glipiZIDE: 5 mg, 1 tab(s), Oral, qDay. glucagon: 1 mg, 1 mL, Intramuscular, AsDirected, PRN: Hypoglycemia. glucose: 12.5 gram(s), 25 mL, IV Push, AsDirected, PRN: Hypoglycemia. glucose: 16 gram(s), 4 tab(s), Chewed, AsDirected, PRN: Hypoglycemia. glycerin: 1 supp, Rectal, Daily, PRN: Constipation. guaiFENesin: 600 mg, 1 tab(s), Oral, BID. insulin glargine: 17 unit(s), 0.17 mL, 0 mL/hr, Subcutaneous (INT), qHS. loperamide: 2 mg, 1 cap(s), Oral, TID, PRN: Diarrhea. loratadine: 10 mg, 1 tab(s), Oral, qHS. losartan: 100 mg, 1 tab(s), Oral, Daily. magnesium hydroxide: 30 mL, Oral, Daily, PRN: Constipation. melatonin: 3 mg, 1 tab(s), Oral, qHS. menthol topical: 1 parish, Topical, q4h, PRN: Muscle pain. menthol-zinc oxide topical: 1 parish, Topical, amhs. metFORMIN: 500 mg, 1 tab(s), Oral, qDay. multivitamin: 1 tab(s), Oral, Daily. nitrofurantoin: 100 mg, 1 cap(s), Oral, BIDM. omega-3 polyunsaturated fatty acids: 1,000 mg, 1 cap(s), Oral, qDay. ondansetron: 4 mg, 1 tab(s), Oral, q6h, PRN: Nausea. pantoprazole: 20 mg, 1 tab(s), Oral, qDayAC. polyethylene glycol 3350: 17 gram(s), 15 mL, Oral, qDay, PRN: Constipation. rosuvastatin: 40 mg, 2 tab(s), Oral, Daily. sertraline: 100 mg, 1 tab(s), Oral, qDay. tiZANidine: 2 mg, 1 tab(s), Oral, BID, PRN: Muscle spasm. Documented carvedilol: 6.25 mg, 1 tab(s), Oral, BID, 180 tab(s), 0 Refill(s). clopidogrel: 75 mg, 1 tab(s), Oral, qDay, 0 Refill(s). furosemide: 20 mg, 1 tab(s), Oral, qDay, 30 tab(s), 0 Refill(s). glipiZIDE: 10 mg, 1 tab(s), Oral, qDay, 30 tab(s), 0 Refill(s). herbal/nutritional product: 1 cap(s), Oral, Daily, 0 Refill(s). insulin glargine: 15 unit(s), Subcutaneous (INT), qHS, 0 Refill(s). losartan: 50 mg, 1 tab(s), Oral, Daily, 100 tab(s), 0 Refill(s). metFORMIN: 500 mg, 1 tab(s), Oral, qDay, 30 tab(s), 0 Refill(s). multivitamin: 1 tab(s), Oral, Daily, 0 Refill(s). omega-3 polyunsaturated fatty acids: 1,000 mg, 1 cap(s), Oral, qDay, 90 cap(s), 0 Refill(s). rosuvastatin: 40 mg, 2 tab(s), Oral, Daily, 0 Refill(s). sertraline: 50 mg, 1 tab(s), Oral, qDay, 0 Refill(s). sertraline: 50 mg, 1 tab(s), Oral, qDay, 30 tab(s), 0 Refill(s). Medications Inactivated in the Last 72 Hours insulin glargine: 15 unit(s), 0.15 mL, 0 mL/hr, Subcutaneous (INT), qHS. methylPREDNISolone: 40 mg, 1 mL, IV Push, BID. Social history: Social support: Lives with spouse Home set-up: Single level home. First-floor bedroom, bathroom, laundry Barriers to discharge: Time since onset, safety awareness, past medical history Review of Systems: General: Appetite is good. Modified diet regular texture, nectar thick liquids. Sleeping well at night Respiratory: Denies shortness of breath, congestion, or cough Cardiovascular: Denies chest pain, heart palpitations, or chest pressure Gastrointestinal: Denies nausea, vomiting, loose stools, or constipation Genitourinary: Denies suprapubic tenderness, CVA tenderness, or bladder distention Musculoskeletal: Denies any uncontrolled pain Psychiatric: No reported change in cognition Vitals Signs(Last 24 hrs)__Last Charted Minimum Maximum SBPH 148(DEC 06 05:40)120(DEC 05 15:17)H 148(DEC 06 05:40) DBP80(DEC 06 05:40)76(DEC 05 15:17)H 98(DEC 05 08:48) Physical Exam: General: Alert and oriented NAD. Appears comfortable sitting in wheelchair, no acute noted. Calm and interactive. Talkative. Cognition at baseline. Good eye contact Respiratory: Lungs clear nonlabored on room air; no cough or congestion Cardiovascular: Heart rate regular without tachycardia or murmur Gastrointestinal: Abdomen soft/nondistended/nontender with bowel sounds present x 4 Arterial: 2/4 distal pulses bilateral lower extremities Edema: No edema BLE, compression stockings on Musculoskeletal: Mild polyarthritis Spinal Curvatures: Slight increased thoracic kyphosis. No spinal or paraspinal tenderness Weight bearing status/transfers/ADLs: Weightbearing as tolerated. Ambulating 50 feet with platform walker. Independent for rolling left to right. Independent for sit to lying. Independent for lying to sitting on side of bed. Supervision/touching assist for sit to stand. Skin: Thin, dry, and atrophic. Neurological: Cranial nerves intact Right hemiparesis Sensation normal distally 5/5 left upper extremity strength 0/5 right upper extremity strength 5/5 left lower extremity strength 2 -/5 right lower extremity strength Absent right hand grasp Normal left hand grasp Normal left shoulder range of motion Decreased right shoulder range of motion 2/4 bilateral upper extremity reflexes 2/4 bilateral lower extremity reflexes Psychiatric: Mood and cognition stable. Pleasant and cooperative. Assessment and plan: Status post rehab stay for acute ischemic CVA with right hemiparesis. Eval completed plan is to transition home with 24/7 care with family assist. Patient currently with Occupational Therapy partial assist with ADLs, speech therapy following on a regular with nectar thick liquids. Plan is discharge on 12/08 with 24/7 family assist. We are going to complete another family instruct prior to discharge. He was able to ambulate 20 feet with PT at a max assist level otherwise partial to moderate assist with transfers DVT prophylaxis due to complete Lovenox today Insulin training and management prior to discharge Discussed with patient and therapy team PMH/SH reviewed and unchanged. Risks/benefits of meds, treatments considered. Therapy notes reviewed. Discussed with staff. Medications reviewed and up to date This document was transcribed using dictation software and may contain typographical errors. Bradley Balderas RN, am scribing for , and in the presence of Dr. Harris. I, Dr. Harris, personally performed the services described in this documentation, as scribed byBradley RN in my presence and it is both accurate and complete. Digitally Signed by MIKEY HARRIS DO on 12/07/2023 03:00 PM [facility] 12-06-2023 Physical medicine and rehab Progress note Rehab Note Chief Complaint: Seeing this patient for reevaluation therapy progress, recent hemiparesis, CVA, respiratory failure, and hyperglycemia History of Present Illness: Seeing this patient for reevaluation therapy progress and CVA with right hemiparesis. Patient participates in acute inpatient rehabilitation with PT, OT and ST services.53-year-old male admitted to [facility] inpatient rehab unit from [facility] stay 11/12 - 11/18 who has a history of hypertension, diastolic CHF, CVA with left facial droop in 2014, hyperlipidemia, and depression who presented to hospital with right-sided weakness and slurred speech for 2 days. [address] score 5. CT of head and CTA of head and neck was negative. Aspirin changed to Plavix 75 mg daily. Home Crestor 20 mg daily was increased to 40 mg. Hemoglobin A1c 9.2%, Lantus was initiated in addition to the sliding scale insulin. MRI showed left basal ganglia stroke. Noted with worsening symptoms during hospital course for which stat CT head obtained showing possible evolving of the stroke. Neurology did recommend 30-day CardioNet monitor and continue with only Plavix as patient was previously on aspirin. Aspirin remains on hold. TTE negative for shunt, normal ejection fraction, 55 to 60%. SHRUTHI negative for vegetation or thrombus. Doppler bilateral lower extremities negative for DVT/SVT. Today, patient states that he is feeling better. Denies any shortness breath or conversational dyspnea and states breathing is comfortable, recent chest x-ray reviewed and negative, continue pleated IV Solu-Medrol this morning. Denies any glycemic reactions. [place] any lightness, dizziness, headache. Denies any urinary urgency, frequency, or dysuria, continues on Macrobid recently initiated per medical team until 12/07. Follow-up labs pending.. Discussed with nursing. Medications reviewed. Goal is to discharge home with spouse and home health care services. Tentative discharge date 12/06/2023 Medications (33) Active Scheduled: (20) albuterol - ipratropium 2.5 mg-0.5 mg/3 mL Inhal Li UD 3 mL, Inhalation, QIDRT carvedilol 6.25 mg tablet 6.25 mg 1 tab(s), Oral, BID clopidogrel 75 mg Tablet 75 mg 1 tab(s), Oral, qDay enoxaparin 40 mg/ 0.4mL syringe 40 mg 0.4 mL, Subcutaneous, qDay furosemide 20 mg tablet 20 mg 1 tab(s), Oral, qDay gabapentin 100 mg Capsule 100 mg 1 cap(s), Oral, BID glipizide 5 mg Tablet 5 mg 1 tab(s), Oral, qDay guaifenesin 600 mg ER 600 mg 1 tab(s), Oral, BID insulin glargine 17 unit(s) 0.17 mL, Subcutaneous (INT), qHS loratadine 10 mg Tablet 10 mg 1 tab(s), Oral, qHS losartan 100 mg tablet 100 mg 1 tab(s), Oral, Daily melatonin 3 mg tablet 3 mg 1 tab(s), Oral, qHS menthol-zinc oxide topical ointment 4oz 1 parish, Topical, amhs metformin 500 mg Tablet 500 mg 1 tab(s), Oral, qDay multivitamin tablet 1 tab(s), Oral, Daily nitrofurantoin macrocrystals-MONOHYDRATE 100 mg Capsule 100 mg 1 cap(s), Oral, BIDM [id number] ethyl esters 1000 mg capsule 1,000 mg 1 cap(s), Oral, qDay pantoprazole 20 mg EC tablet 20 mg 1 tab(s), Oral, qDayAC rosuvastatin 20 mg tablet 40 mg 2 tab(s), Oral, Daily sertraline 100 mg tablet 100 mg 1 tab(s), Oral, qDay Continuous: (0) PRN: (13) acetaminophen 325 mg Tablet 650 mg 2 tab(s), Oral, q4h Al hydrox/Mg hydrox/simethicone 200-200-20 mg/5 mL Susp UD 30 mL, Oral, q6h dextrose 50% Solution Disp syringe 50 mL 12.5 gram(s) 25 mL, IV Push, AsDirected docusate sodium 100 mg Capsule 100 mg 1 cap(s), Oral, BID glucagon recombinant 1 mg 1 mg 1 mL, Intramuscular, AsDirected glucose 4 gm Chewable 16 gram(s) 4 tab(s), Chewed, AsDirected glycerin adult Suppository 1 supp, Rectal, Daily loperamide 2 mg capsule 2 mg 1 cap(s), Oral, TID magnesium hydroxide 8% Suspension 30 mL UD 30 mL, Oral, Daily menthol (Biofreeze) gel packet 1 parish, Topical, q4h ondansetron 4 mg tablet 4 mg 1 tab(s), Oral, q6h polyethylene glycol 3350 - UD packet 17 gram(s) 15 mL, Oral, qDay tiZANidine 2 mg tablet 2 mg 1 tab(s), Oral, BID Social history: Social support: Lives with spouse Home set-up: Single level home. First-floor bedroom, bathroom, laundry Barriers to discharge: Time since onset, safety awareness, past medical history Review of Systems: General: Appetite is good. Modified diet regular texture, NCS. Mildly thick liquids Respiratory: Denies shortness of breath, congestion, or cough Cardiovascular: Denies chest pain, heart palpitations, or chest pressure Gastrointestinal: Denies nausea, vomiting, loose stools, or constipation Genitourinary: Denies suprapubic tenderness, CVA tenderness, or bladder distention Musculoskeletal: Denies any uncontrolled pain Psychiatric: No reported change in cognition Vitals Signs(Last 24 hrs)__Last Charted Minimum Maximum Heart Rate70(DEC 04 07:45)70(DEC 04 07:45)70(DEC 04 07:45) FFT442(DEC 04 20:50)138(DEC 04 20:50)H 144(DEC 04 07:45) DBP78(DEC 04 20:50)78(DEC 04 20:50)88(DEC 04 07:45) Physical Exam: General: No acute distress, alert and oriented x 4. Patient sitting up in wheelchair work with therapy. Appears comfortable and does not appear in acute pain. Pleasant and cooperative. Good eye contact/flat affect Respiratory: LCTA. Respirations are unlabored room air. No cough, congestion, or conversational dyspnea Cardiovascular: HRR. No tachycardia, bradycardia, heart murmur Gastrointestinal: Abdomen is nontender, soft, and nondistended. Bowel sounds present x 4 Arterial: 2/4 distal pulses bilateral lower extremities Edema: No edema to the bilateral extremities. GIL hose are in place bilaterally. Musculoskeletal: Mild polyarthritis Spinal Curvatures: Slight increased thoracic kyphosis. No spinal or paraspinal tenderness Weight bearing status/transfers/ADLs: Weightbearing as tolerated. Ambulated 50 feet with gait belt and platform walker. Maximal assist to walk 10 feet. Moderate assist for lying to sitting on side of bed. Moderate assist for sit to stand. Moderate assist for sit to lying. Moderate assist for lying to sitting on side of bed. Moderate assist for sit to stand. Moderate assist for chair to bed transfer. Ongoing assessment of swallowing function, currently on a regular diet with mildly thick liquids Skin: Thin, dry, and atrophic. Neurological: Cranial nerves intact Right hemiparesis Sensation normal distally 5/5 left upper extremity strength 0/5 right upper extremity strength 5/5 left lower extremity strength 2 -/5 right lower extremity strength Absent right hand grasp Normal left hand grasp Normal left shoulder range of motion Decreased right shoulder range of motion 2/4 bilateral upper extremity reflexes 2/4 bilateral lower extremity reflexes Psychiatric: Mood and cognition stable. Pleasant and cooperative. Assessment: CVA, right-sided hemiparesis, acute hypoxic respiratory failure, diabetes mellitus type 2 with hyperglycemia, mobility dysfunction Plan: Dense right hemiparesis secondary to acute ischemic CVA. Potential upcoming discharge in 3 days with home health care, patient ambulating 50 feet touch assist PT and OT. Had some recent respiratory issues for which chest x-ray was negative appreciate medical team input. Completed course of IV Solu-Medrol as of today and respiratory status currently remained stable. Will discuss with them in regards to hyperglycemia secondary to the recent IV steroid. Risks/benefits of meds, treatments considered. Therapy notes reviewed. Discussed with staff. PMH/SH reviewed and unchanged Note: This dictation was created with assistance of voice recognition software. Phonic and/or minor grammatical errors may exist. Medications reviewed and up to date This document was transcribed using dictation software and may contain typographical errors. Jose Balderas RN, am scribing for , and in the presence of Dr. Harris. I, Dr. Harris, personally performed the services described in this documentation, as scribed byJose RN in my presence and it is both accurate and complete. Digitally Signed by MIKEY HARRIS DO on 12/06/2023 05:14 PM [facility] Watt 12-02-2023 Note ORIGINAL EXAMINATION: ONE XRAY VIEW OF THE CHEST12/02/2023 2:52 pm COMPARISON: Chest x-rays dated 11/30/2023, 11/28/2023 HISTORY: ORDERING SYSTEM PROVIDED HISTORY: Reason for Exam: New need for oxygen, shortness of breath FINDINGS: Portable AP x-ray, patient rotated. Poor inspiration. Heart and mediastinum: Cardiomediastinal silhouette is unremarkable and stable from prior. Lungs and pleura: Lung parenchyma is relatively dense and due to poor inspiration. No pleural effusion, pulmonary edema, or visible pneumothorax. Bones: No acute bony abnormalities appreciated. IMPRESSION: No visible acute radiographic findings. I have personally reviewed the images of this examination and agree with the resident's findings and interpretation. Interpreted by: Ayaz Pedraza MD Preliminary Report By: Ray Clemente Electronically signed By Ayaz Pedraza MD Dictated Date: 12/02/2023 3:17:20 PM Prelim Date: 12/02/2023 3:23:54 PM Sign Date: 12/02/2023 3:23:54 PM Ordering Provider: LUCILLE Watt 12-02-2023 Note ORIGINAL EXAMINATION: CT OF THE HEAD WITHOUT CONTRAST 12/02/2023 10:40 am TECHNIQUE: CT of the head was performed without the administration of intravenous contrast. Automated exposure control, iterative reconstruction, and/or weight based adjustment of the mA/kV was utilized to reduce the radiation dose to as low as reasonably achievable. COMPARISON: CT head 11/16/2023 HISTORY: ORDERING SYSTEM PROVIDED HISTORY: Reason for Exam: pt c/o blurry vision, hx stroke 2 wks ago and brain contusion a few yrs ago Change in vision FINDINGS: BRAIN/VENTRICLES: There is no acute intracranial hemorrhage, mass effect or midline shift. No abnormal extra-axial fluid collection. 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 Prior lacunar infarct involving the anterior limb of the left internal capsule swells the caudate head. No new infarct is seen. The ventricles are mildly enlarged with commensurate enlargement of the sulci consistent with age related volume loss. Periventricular hypodensities in the cerebral white matter are nonspecific but statistically most consistent with mild chronic microvascular angiopathy. There is no evidence of hydrocephalus. ORBITS: The visualized portion of the orbits demonstrate no acute abnormality. SINUSES: Mucosal thickening and partial opacification of frontal sinus, bilateral ethmoid air cells and bilateral maxillary sinus. Mastoid air cells demonstrate no acute abnormality. SOFT TISSUES/SKULL: No acute abnormality of the visualized skull or soft tissues. 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 No new infarct is seen. Sinusitis. I have personally reviewed the images of this examination and agree with the resident's findings and interpretation. Interpreted by: Magno Sweeney Preliminary Report By: Sanjiv Tucker Electronically signed By Magno Sweeney Dictated Date: 12/02/2023 10:46:22 AM Prelim Date: 12/02/2023 11:04:37 AM Sign Date: 12/02/2023 11:04:37 AM Ordering Provider: LUCILLE Watt 12-02-2023 Note Subjective Patient states he is having a rough morning, states he did not receive a whole lot last night and so he is very tired today. He is also reporting some change in his peripheral vision. States that this started earlier this morning. States he was having some blurry vision in his right eye yesterday, states it resolved in the afternoon and states that this morning it is back to being blurry. States he is unsure if this happened prior to yesterday's event. States that is very worrisome. Therapy bedside does feel that his right side is more weak than it previously had been over the last few days. They feel that they are not able to work with him this morning. He again reiterates that he did not sleep a whole lot last night which he was up ordering a whole lot. He states that he is very tired this morning. Objective General: Alert and oriented, NAD. Neurostatus appears to be stable on my exam. He is calm and cooperative. Answer my questions appropriately. Good eye contact, flat affect HEENT: No nasal drainage, EOMI, MMM, right eye reactive 3, pupils different size Respiratory: Lungs clear nonlabored on room air; no cough or congestion Cardiovascular: Heart rate regular without tachycardia/murmur Edema/Varicosities of Extremities: No edema BLE Gastrointestinal: Bowel sounds present x 4 with abdomen soft, nondistended, nontender Genitourinary: No suprapubic tenderness, CVA tenderness, or bladder distention Neurological: Dysarthria. Ongoing right-sided weakness, 0/5 strength to the right upper extremity, 4/5 strength to left upper extremity. 1/5 strength of the right lower extremity, 5/5 strength to left lower extremity unchanged from his admission VITALS [id number] t(kg) 11/30 21:58----[id number]/12 90.8 11/30 16:3736.3--[id number]/11 92.6 11/30 13:18 2.0L/m011/28 93.0 11/30 11:40--------94 2.0L/m011/27 92.8 11/30 07:3736.6--[id number]/08 92.2 24 Hr Tmax: 36.6 at 11/30 07:37 36 Hr Tmax: 37.0 at 11/30 02:19 Vital Signs are the last 5 in the past 48 hours. Weights display the last 5 within 7 days. Initial Wt: 11/18 94.5 kg 208 lb Current Wt: 11/30 90.8 kg 200 lb LABS No 36 Hour Lab Data Medications Active Inpt Meds: albuterol-ipratropium (DuoNeb) Start: 11/30/23 9:00:00 EDT, Dose = 3 mL, Soln, Inhalation, QIDRT, 11/30/23 7:53:00 EDT carvedilol (Coreg) Start: 11/19/23 21:04:00 EDT, Dose = 6.25 mg, = 1 tab(s), Oral, BID, 0, 11/19/23 21:04:00 EDT clopidogrel (Plavix) Start: 11/20/23 9:00:00 EDT, Dose = 75 mg, = 1 tab(s), Oral, qDay, 0, 11/19/23 21:05:00 EDT enoxaparin (Lovenox) Start: 11/22/23 9:00:00 EDT, Dose = 40 mg, = 0.4 mL, Subcutaneous, qDay, 11/22/23 8:43:00 EDT furosemide Start: 11/20/23 9:00:00 EDT, Dose = 20 mg, = 1 tab(s), Oral, qDay, 0, 11/19/23 21:05:00 EDT gabapentin Start: 11/23/23 16:00:00 EDT, Dose = 100 mg, = 1 cap(s), Oral, BID, 0, 11/23/23 10:46:00 EDT glipiZIDE (glipiZIDE 5 mg oral tablet) Start: 12/01/23 8:12:00 EDT, Dose = 7.5 mg, = 1.5 tab(s), Oral, qDay, 0, 12/01/23 8:12:00 EDT guaiFENesin (Mucinex 600 mg oral tablet, extended release) Start: 11/28/23 10:11:00 EDT, Dose = 600 mg, = 1 tab(s), Oral, BID, 11/28/23 10:11:00 EDT insulin glargine (Lantus) Start: 11/20/23 21:00:00 EDT, Dose = 15 unit(s), = 0.15 mL, Subcutaneous (INT), qHS, Rate: 0 mL/hr, Infuse over: 0 minute(s), 0, 11/19/23 21:05:00 EDT loratadine (Claritin) Start: 11/30/23 21:00:00 EDT, Dose = 10 mg, = 1 tab(s), Oral, qHS, 11/30/23 7:54:00 EDT losartan Start: 11/20/23 9:00:00 EDT, Dose = 100 mg, = 1 tab(s), Oral, Daily, 0, 11/20/23 8:11:00 EDT menthol-zinc oxide topical (Calmoseptine or equivalent topical ointment) Start: 11/22/23 7:10:00 EDT, Dose = 1 parish, Topical, amhs, Apply to: coccyx, Ointment, 11/22/23 7:10:00 EDT metFORMIN (metFORMIN 500 mg oral tablet (IR)) Start: 11/20/23 8:00:00 EDT, Dose = 500 mg, = 1 tab(s), Oral, qDay, 0, 11/19/23 21:05:00 EDT multivitamin (Multivitamin) Start: 11/20/23 12:00:00 EDT, Dose = 1 tab(s), Tab, Oral, Daily, 0, 11/19/23 21:05:00 EDT omega-3 polyunsaturated fatty acids (Fish Oil 1000 mg oral capsule) Start: 11/20/23 9:00:00 EDT, Dose = 1,000 mg, = 1 cap(s), Oral, qDay, 0, 11/19/23 21:05:00 EDT rosuvastatin Start: 11/20/23 9:00:00 EDT, Dose = 40 mg, = 2 tab(s), Oral, Daily, 0, 11/19/23 21:05:00 EDT sertraline Start: 11/24/23 9:00:00 EDT, Dose = 100 mg, = 1 tab(s), Oral, qDay, 0, 11/24/23 9:00:00 EDT Active PRN Meds: Al hydroxide/Mg hydroxide/simethicone (Maalox) Start: 11/19/23 21:36:00 EDT, Dose = 30 mL, Susp, Oral, q6h, PRN, Indigestion, 0, 11/19/23:36:00 EDT acetaminophen (Tylenol) Start: 11/19/23:36:00 EDT, Dose = 650 mg, = 2 tab(s), Oral, q4h, PRN, Muscle pain, 11/19/23:36:00 EDT docusate (Colace) Start: 11/19/23:36:00 EDT, Dose = 100 mg, = 1 cap(s), Oral, BID, PRN, Constipation, 11/19/23:36:00 EDT glucagon (GlucaGen) Start: 11/19/23:36:00 EDT, Dose = 1 mg, = 1 mL, Intramuscular, AsDirected, PRN, Hypoglycemia, if unresponsive, NO IV ACCESS & blood glucose less than 70mg/dL. If still unresponsive after 2 minutes, REPEAT x1., 0, 11/19/23:36:00 EDT glucose (Dextrose 50% IV Push) Start: 11/19/23:36:00 EDT, Dose = 12.5 gram(s), = 25 mL, IV Push, AsDirected, PRN, Hypoglycemia, if unresponsive WITH IV ACCESS & blood glucose less than 70mg/dL. If still unresponsive after 2 minutes, REPEAT x1., 11/19/23 21:36:00 EDT glucose Start: 11/19/23:36:00 EDT, Dose = 16 gram(s), = 4 tab(s), Chewed, AsDirected, PRN, Hypoglycemia, DIABETIC PATIENT if responsive & blood glucose less than 70mg/dL. If blood glucose less than 70mg/dL after 15 minutes, REPEAT x1., 0, 11/19/23 21:3... glycerin (glycerin adult rectal suppository) Start: 11/19/23 21:36:00 EDT, Dose = 1 supp, Supp, Rectal, Daily, PRN, Constipation, 11/19/23 21:36:00 EDT loperamide (Imodium A-D) Start: 11/30/23 7:54:00 EDT, Dose = 2 mg, = 1 cap(s), Oral, TID, PRN, Diarrhea, 11/30/23 7:54:00 EDT magnesium hydroxide (Milk of Magnesia) Start: 11/19/23 21:36:00 EDT, Dose = 30 mL, Susp-Oral, Oral, Daily, PRN, Constipation, 11/19/23 21:36:00 EDT menthol topical (Biofreeze gel packet) Start: 11/23/23 10:47:00 EDT, Dose = 1 parish, Topical, q4h, PRN, Muscle pain, Apply to: right shoulder, Gel, 11/23/23 10:47:00 EDT polyethylene glycol 3350 (Miralax Powder Packet) Start: 11/19/23 21:36:00 EDT, Dose = 17 gram(s), = 15 mL, Oral, qDay, PRN, Constipation, 11/19/23 21:36:00 EDT tiZANidine (Zanaflex) Start: 11/25/23 13:27:00 EDT, Dose = 2 mg, = 1 tab(s), Oral, BID, PRN, Muscle spasm, 11/25/23 13:27:00 EDT One Time Meds: None Active IV Meds: None Problems (7) Blindness of one eye (726448808) Hyperlipidemia (82893388) Hypertension (3874718598) Ischemic leg (080003369) Ischemic stroke (4511863466) Morbid obesity (064136604) Systolic heart failure (4567258272) ASSESSMENT/PLAN: Acute ischemic CVA. Plan at this time is risk factor modification blood pressure management as well as diabetic control, aspirin changed to Plavix. High-dose statin in place. Acute right-sided hemiparesis, working with PT and OT services for mobility assistance Hyperlipidemia high-dose statin, tolerating without myalgias Insulin-dependent type 2 diabetes A1c 9.2, patient was started on the Lantus, also on metformin plus glipizide, will reassess with plan to likely come off the glipizide and titrate Lantus as tolerated. Blood sugars remain stable, monitoring ACHS MRI reviewed showing a left basal ganglia infarct, patient did have a follow-up CT scan which showed possible evolving stroke 30-day CardioNet monitor ordered Echo showing normal ejection fraction without vegetation or thrombus Bilateral lower extremity edema Dopplers negative for DVT Diastolic congestive heart failure, on chronic Lasix therapy, edema remained stable Hypertension Coreg plus losartan, blood pressures stable Dysphagia on modified diet with mildly thick liquids, trending hydration status closely Adjustment reaction with history of depression continue Zoloft, Zoloft has been increased during patient's stay. Neuropsychology is following, appreciate recommendations. 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 Denies any active bleeding Trial of gabapentin, tolerating during the day, dose scheduled at 4 PM and 10 PM after discussion with him and family, tolerating. Denies any uncontrolled pain. Blood pressures holding steady Right shoulder pain, Biofreeze as needed. Denies any uncontrolled pain Recent suicidal ideation, he has no suicidal ideation no homicidal ideation, no thoughts of this or plan. Video monitoring discontinued Muscle spasms in the left thigh, Zanaflex 2 mg twice daily as needed, Biofreeze is available every 4 as needed Ongoing cough, congestion, and shortness of breath. Recent chest x-ray on 11/28 was negative. Repeat chest x-ray on 11/29 negative as well. Continues on scheduled DuoNebs 4 times daily, Claritin, and Mucinex. COVID, flu, and RSV negative. Breathing comfortably on room air this morning on exam. Loose stools, as needed Imodium available. Reports improvement in symptoms this morning. Abdominal exam remains benign Insulin-dependent diabetes mellitus type 2, due to hypoglycemia glipizide decreased 7.5 mg daily. Blood sugars are showing improvement Poor vision with changes in peripheral vision, pupils are reactive but appear to be different sizes. Ongoing right-sided weakness. We will check a noncontrast CT of head as patient has reported this morning ongoing issues with the right side visual field as well as reports of increased right-sided weakness. Therapy. Appreciate collaboration of care with primary team today Documented weight loss. Dietary female approximately 8 pounds since admission. Patient states that he is eating just fine, states he is watching what he eats. Better now than when he was at home. Weight loss is likely to be expected. No concern noted on my exam today Medications reviewed and up to date This document was transcribed using dictation software and may contain typographical errors. Bradley Balderas RN, am scribing for, and in the presence of René Blair CNP. René Balderas CNP, personally performed the services described in this documentation, as scribed byBradley RN in my presence and it is both accurate and complete. Digitally Signed by LUCILLE BLAIR on 12/02/2023 08:47 PM Deena Watt 12-01-2023 Note Subjective Patient reports ongoing nasal congestion and nonproductive cough this morning however states he is feeling a better at the time of exam. He denies any shortness of breath or conversational dyspnea states breathing is comfortable. Chest x-ray obtained and reviewed. COVID, flu, and RSV all negative. He denies any glycemic reactions with blood sugars ranging 83 1 82. Denies any further loose stools this morning examination. Denies any lightness, dizziness, or headache. Objective General: No acute distress, alert and oriented. Sitting up in wheelchair, working with therapy. Appears comfortable, and does not appear in acute pain. Pleasant and cooperative. Good eye contact with flat affect. Answers questions appropriately. HEENT: No nasal drainage, EOMI, moist mucous membranes Respiratory: Lungs are clear to auscultation. Respirations are unlabored on room air. No conversational dyspnea. Nasal congestion and nonproductive cough present Cardiovascular: Heart rate is regular. No bradycardia, tachycardia, or murmur Edema/Varicosities of Extremities: No edema to the bilateral extremities. GIL hose are in place to the bilateral lower extremities Gastrointestinal: Abdomen is nontender, soft, and nondistended. Bowel sounds are present in all 4 quadrants Genitourinary: No suprapubic tenderness, CVA tenderness, or bladder distention Neurological: Slight right-sided facial droop, dysarthria VITALS [id number] t(kg) 11/30 02:1937.0--84--90 90.8 11/29 21:08----[id number] 92.6 11/29 20:01 93.0 11/29 16:50------9159DU39/09 92.8 11/29 11:55--------RA11/26 92.2 24 Hr Tmax: 37.0 at 11/30 02:19 36 Hr Tmax: 37.0 at 11/30 02:19 Vital Signs are the last 5 in the past 48 hours. Weights display the last 5 within 7 days. Initial Wt: 11/18 94.5 kg 208 lb Current Wt: 11/30 90.8 kg 200 lb LABS No 36 Hour Lab Data Medications Active Inpt Meds: albuterol-ipratropium (DuoNeb) Start: 11/30/23 9:00:00 EDT, Dose = 3 mL, Soln, Inhalation, QIDRT, 11/30/23 7:53:00 EDT carvedilol (Coreg) Start: 11/19/23 21:04:00 EDT, Dose = 6.25 mg, = 1 tab(s), Oral, BID, 0, 11/19/23 21:04:00 EDT clopidogrel (Plavix) Start: 11/20/23 9:00:00 EDT, Dose = 75 mg, = 1 tab(s), Oral, qDay, 0, 11/19/23 21:05:00 EDT enoxaparin (Lovenox) Start: 11/22/23 9:00:00 EDT, Dose = 40 mg, = 0.4 mL, Subcutaneous, qDay, 11/22/23 8:43:00 EDT furosemide Start: 11/20/23 9:00:00 EDT, Dose = 20 mg, = 1 tab(s), Oral, qDay, 0, 11/19/23 21:05:00 EDT gabapentin Start: 11/23/23 16:00:00 EDT, Dose = 100 mg, = 1 cap(s), Oral, BID, 0, 11/23/23 10:46:00 EDT glipiZIDE (glipiZIDE 5 mg oral tablet) Start: 11/20/23 7:30:00 EDT, Dose = 10 mg, = 2 tab(s), Oral, qDay, 0, 11/19/23 21:05:00 EDT guaiFENesin (Mucinex 600 mg oral tablet, extended release) Start: 11/28/23 10:11:00 EDT, Dose = 600 mg, = 1 tab(s), Oral, BID, 11/28/23 10:11:00 EDT insulin glargine (Lantus) Start: 11/20/23 21:00:00 EDT, Dose = 15 unit(s), = 0.15 mL, Subcutaneous (INT), qHS, Rate: 0 mL/hr, Infuse over: 0 minute(s), 0, 11/19/23 21:05:00 EDT loratadine (Claritin) Start: 11/30/23 21:00:00 EDT, Dose = 10 mg, = 1 tab(s), Oral, qHS, 11/30/23 7:54:00 EDT losartan Start: 11/20/23 9:00:00 EDT, Dose = 100 mg, = 1 tab(s), Oral, Daily, 0, 11/20/23 8:11:00 EDT menthol-zinc oxide topical (Calmoseptine or equivalent topical ointment) Start: 11/22/23 7:10:00 EDT, Dose = 1 parish, Topical, amhs, Apply to: coccyx, Ointment, 11/22/23 7:10:00 EDT metFORMIN (metFORMIN 500 mg oral tablet (IR)) Start: 11/20/23 8:00:00 EDT, Dose = 500 mg, = 1 tab(s), Oral, qDay, 0, 11/19/23 21:05:00 EDT multivitamin (Multivitamin) Start: 11/20/23 12:00:00 EDT, Dose = 1 tab(s), Tab, Oral, Daily, 0, 11/19/23 21:05:00 EDT omega-3 polyunsaturated fatty acids (Fish Oil 1000 mg oral capsule) Start: 11/20/23 9:00:00 EDT, Dose = 1,000 mg, = 1 cap(s), Oral, qDay, 0, 11/19/23 21:05:00 EDT rosuvastatin Start: 11/20/23 9:00:00 EDT, Dose = 40 mg, = 2 tab(s), Oral, Daily, 0, 11/19/23 21:05:00 EDT sertraline Start: 11/24/23 9:00:00 EDT, Dose = 100 mg, = 1 tab(s), Oral, qDay, 0, 11/24/23 9:00:00 EDT Active PRN Meds: Al hydroxide/Mg hydroxide/simethicone (Maalox) Start: 11/19/23 21:36:00 EDT, Dose = 30 mL, Susp, Oral, q6h, PRN, Indigestion, 0, 11/19/23:36:00 EDT acetaminophen (Tylenol) Start: 11/19/23:36:00 EDT, Dose = 650 mg, = 2 tab(s), Oral, q4h, PRN, Muscle pain, 11/19/23:36:00 EDT docusate (Colace) Start: 11/19/23:36: EDT, Dose = 100 mg, = 1 cap(s), Oral, BID, PRN, Constipation, 11/19/23:36:00 EDT glucagon (GlucaGen) Start: 11/19/23:36: EDT, Dose = 1 mg, = 1 mL, Intramuscular, AsDirected, PRN, Hypoglycemia, if unresponsive, NO IV ACCESS & blood glucose less than 70mg/dL. If still unresponsive after 2 minutes, REPEAT x1., 0, 11/19/23:36:00 EDT glucose (Dextrose 50% IV Push) Start: 11/19/23:36:00 EDT, Dose = 12.5 gram(s), = 25 mL, IV Push, AsDirected, PRN, Hypoglycemia, if unresponsive WITH IV ACCESS & blood glucose less than 70mg/dL. If still unresponsive after 2 minutes, REPEAT x1., 11/19/23:36:00 EDT glucose Start: 11/19/23:36:00 EDT, Dose = 16 gram(s), = 4 tab(s), Chewed, AsDirected, PRN, Hypoglycemia, DIABETIC PATIENT if responsive & blood glucose less than 70mg/dL. If blood glucose less than 70mg/dL after 15 minutes, REPEAT x1., 0, 11/19/23 21:3... glycerin (glycerin adult rectal suppository) Start: 11/19/23:36:00 EDT, Dose = 1 supp, Supp, Rectal, Daily, PRN, Constipation, 11/19/23 21:36:00 EDT loperamide (Imodium A-D) Start: 11/30/23 7:54:00 EDT, Dose = 2 mg, = 1 cap(s), Oral, TID, PRN, Diarrhea, 11/30/23 7:54:00 EDT magnesium hydroxide (Milk of Magnesia) Start: 11/19/23 21:36:00 EDT, Dose = 30 mL, Susp-Oral, Oral, Daily, PRN, Constipation, 11/19/23 21:36:00 EDT menthol topical (Biofreeze gel packet) Start: 11/23/23 10:47:00 EDT, Dose = 1 parish, Topical, q4h, PRN, Muscle pain, Apply to: right shoulder, Gel, 11/23/23 10:47:00 EDT polyethylene glycol 3350 (Miralax Powder Packet) Start: 11/19/23 21:36:00 EDT, Dose = 17 gram(s), = 15 mL, Oral, qDay, PRN, Constipation, 11/19/23 21:36:00 EDT tiZANidine (Zanaflex) Start: 11/25/23 13:27:00 EDT, Dose = 2 mg, = 1 tab(s), Oral, BID, PRN, Muscle spasm, 11/25/23 13:27:00 EDT One Time Meds: (Completed) albuterol-ipratropium (DuoNeb) Start: 11/30/23 8:00:00 EDT, Dose = 3 mL, Soln, Inhalation, now, Stop: 11/30/23 8:00:00 EDT, 11/30/23 7:50:00 EDT Active IV Meds: None Problems (7) Blindness of one eye (134057858) Hyperlipidemia (75964904) Hypertension (1524138358) Ischemic leg (899064698) Ischemic stroke (9470065587) Morbid obesity (230834085) Systolic heart failure (8389914780) ASSESSMENT/PLAN: Acute ischemic CVA. Plan at this time is risk factor modification blood pressure management as well as diabetic control, aspirin changed to Plavix. High-dose statin in place. Acute right-sided hemiparesis, working with PT and OT services for mobility assistance Hyperlipidemia high-dose statin, tolerating without myalgias Insulin-dependent type 2 diabetes A1c 9.2, patient was started on the Lantus, also on metformin plus glipizide, will reassess with plan to likely come off the glipizide and titrate Lantus as tolerated. Blood sugars remain stable, monitoring ACHS MRI reviewed showing a left basal ganglia infarct, patient did have a follow-up CT scan which showed possible evolving stroke 30-day CardioNet monitor ordered Echo showing normal ejection fraction without vegetation or thrombus Bilateral lower extremity edema Dopplers negative for DVT Diastolic congestive heart failure, on chronic Lasix therapy, edema remained stable Hypertension Coreg plus losartan, blood pressures stable Dysphagia on modified diet with mildly thick liquids, trending hydration status closely Adjustment reaction with history of depression continue Zoloft, Zoloft has been increased during patient's stay. Neuropsychology is following, appreciate recommendations. 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 Denies any active bleeding Trial of gabapentin, tolerating during the day, dose scheduled at 4 PM and 10 PM after discussion with him and family, tolerating. Denies any uncontrolled pain. Blood pressures holding steady Right shoulder pain, Biofreeze as needed. Denies any uncontrolled pain Recent suicidal ideation, he has no suicidal ideation no homicidal ideation, no thoughts of this or plan. Video monitoring discontinued Muscle spasms in the left thigh, Zanaflex 2 mg twice daily as needed, Biofreeze is available every 4 as needed, reports improvement in symptoms Labs 11/28 reviewed at this time, hemoglobin stable. White count remains stable. Kidney function is stable Ongoing cough, congestion, and shortness of breath. Recent chest x-ray on 11/28 was negative. Repeat chest x-ray on 11/29 negative as well. Continues on scheduled DuoNebs 4 times daily, Claritin, and Mucinex. COVID, flu, and RSV negative. Breathing comfortably on room air this morning on exam. Loose stools, as needed Imodium available. Reports improvement in symptoms this morning. Abdominal exam remains benign Insulin-dependent diabetes mellitus type 2, trending blood sugars closely with recent lows down to 8396. Will decrease the glipizide to 7.5 mg today and monitor blood sugars closely Medications reviewed and up to date This document was transcribed using dictation software and may contain typographical errors. Jose Balderas RN, am scribing for, and in the presence of René Blair APRN. René Balderas APRN, personally performed the services described in this documentation, as scribed byJose RN in my presence and it is both accurate and complete. Digitally Signed by LUCILLE BLAIR on 12/01/2023 05:06 PM [facility] 12-01-2023 Note . MICRO - Microbiology PROCEDURE: Culture Respiratory with Gram Stain [^1 *1] SOURCE: Sputum BODY SITE: COLLECTED DATE/TIME: 11/28/2023 21:46 EDT RECEIVED DATE/TIME: 11/29/2023 12:04 EDT START DATE/TIME: 11/29/2023 12:04 EDT FREE TEXT SOURCE: FINAL REPORTS Final Report [] Verified Date/Time/Personnel: 12/01/2023 07:23 EDT Normal respiratory juan manuel present. Sensitivity testing not indicated. PRELIMINARY REPORTS Preliminary Report [] Verified Date/Time/Personnel: 11/30/2023 09:20 EDT Negative for respiratory pathogens at 24 hours. STAINS GS [] Verified Date/Time/Personnel: 11/29/2023 13:22 EDT Predominance of polys Rare Gram Positive Cocci Interpretive Data ^1: Culture Respiratory with Gram Stain Requests for Mycoplasma, Legionella, Fungi, Mycobacteria, Chlamydia, and Viruses require ordering of those individual tests. Performing Locations *1: This test was performed at: [facility], [address] [place] [address], [id number] , [facility] ([place]) 11-30-2023 Note ORIGINAL EXAMINATION: ONE XRAY VIEW OF THE CHEST11/30/2023 9:45 am CHEST ONE VIEW AP/PA COMPARISON: 11/28/2023. HISTORY: ORDERING SYSTEM PROVIDED HISTORY: Reason for Exam: Shortness of breath FINDINGS: Heart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 high-dose statin Insulin-dependent type 2 diabetes A1c 9.2, patient was started on the Lantus, also on metformin plus glipizide, will reassess with plan to likely come off the glipizide and titrate Lantus as tolerated MRI reviewed showing a left basal ganglia infarct, patient did have a follow-up CT scan which showed possible evolving stroke 30-day CardioNet monitor ordered Echo showing normal ejection fraction without vegetation or thrombus Bilateral lower extremity edema Dopplers negative for DVT Diastolic congestive heart failure, on chronic Lasix therapy Hypertension Coreg plus losartan Dysphagia on modified diet with mildly thick liquids, trending hydration status Adjustment reaction with history of depression continue Zoloft 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 Our group will follow during acute rehabilitation stay at [facility] with the goal of returning to a more independent living status at the conclusion of the stay. Medications reviewed and up to date This document was transcribed using dictation software and may contain typographical errors. Jose Balderas RN, am scribing for , and in the presence of Dr. Harris. I, Dr. Harris, personally performed the services described in this documentation, as scribed by, Jose Ernandez RN in my presence and it is both accurate and complete. Digitally Signed by MIKEY HARRIS DO on 11/26/2023 06:55 PM [facility] 11-20-2023 Evaluation + Plan note Extrac gil from: Title:Clinical Document Author:KRISTI BARRIENTOS DINING ROOM MANAGER-STOCK REPAIRER Date:11/20/23 Acute Inpatient Rehab Histor y and Physical Date of Service: 11/20/2023 Date of Admission: 11/19/2023 Attending Physician: Dr. Lagos [employer] 01.2 Right body involvement left brain Etiologic Diagnosis CVA, DM II, Right sided weakness History of Present Illness This is a 53-year-old male admitted to [facility] rehab unit from [facility] stay 11/12 - 11/18 who has a history of hypertension, diastolic CHF, CVA with left facial droop in 2014, hyperlipidemia, and depression who presented to hospital with right-sided weakness and slurred speech for [address] score [address] of head and CTA of head and neck was negative. Aspirin changed to Plavix 75 mg daily. Home Crestor 20 mg daily was increased to 40 mg. Hemoglobin A1c 9.2%, Lantus was initiated in addition to the sliding scale insulin. MRI showed left basal ganglia stroke. Noted with worsening symptoms during hospital course for which stat CT head obtained showing possible evolving of the stroke. Neurology did recommend 30-day CardioNet monitor and continue with only Plavix as patient was previously on aspirin. Aspirin remains on hold. TTE negative for shunt, normal ejection fraction, 55 to 60%. SHRUTHI negative for vegetation or thrombus. Doppler bilateral lower extremities negative for DVT/SVT. Patient deemed medically stable and transferred to [facility] inpatient rehab unit for physical and occupational therapy as well as medical supervision. Today, patient states he is doing okay, he does report that he is not incontinent stools and has no control. Does state that this is new since the stroke. States it is very upsetting to him as he is very young and did not have this issue previously. States he has good control of his bladder. Appetite good and eating well, states he is tolerating the nectar thick liquids, denies any choking. States he does not really like the texture. States he is tolerating regular diet. Blood sugar 139 20 29 per denies hypoglycemic reaction. States he has no control of the right side, states he can have a little bit but has no control at all. States his breathing is comfortable. Denies dizziness or lightheadedness. Follow-up labs are pending today. Patient denies chest pain, shortness of breath, nausea, vomiting, constipation, or diarrhea. Hospital medications, labs, and diagnostics were reviewed and reconciled. Medications (20) Active Scheduled: (11) carvedilol 6.25 mg tablet 6.25 mg 1 tab(s), Oral, BID clopidogrel 75 mg Tablet 75 mg 1 tab(s), Oral, qDay furosemide 20 mg tablet 20 mg 1 tab(s), Oral, qDay glipizide 5 mg Tablet 10 mg 2 tab(s), Oral, qDay insulin glargine 15 unit(s) 0.15 mL, Subcutaneous (INT), qHS losartan 50 mg tablet 50 mg 1 tab(s), Oral, Daily metformin 500 mg Tablet 500 mg 1 tab(s), Oral, qDay multivitamin tablet 1 tab(s), Oral, Daily adnde-0-airt ethyl esters 1000 mg capsule 1,000 mg 1 cap(s), Oral, qDay rosuvastatin 20 mg tablet 40 mg 2 tab(s), Oral, Daily sertraline 50 mg tablet 50 mg 1 tab(s), Oral, qDay Continuous: (0) PRN: (9) acetaminophen 325 mg Tablet 650 mg 2 tab(s), Oral, q4h Al hydrox/Mg hydrox/simethicone 200-200-20 mg/5 mL Susp UD 30 mL, Oral, q6h dextrose 50% Solution Disp syringe 50 mL 12.5 gram(s) 25 mL, IV Push, AsDirected docusate sodium 100 mg Capsule 100 mg 1 cap(s), Oral, BID glucagon recombinant 1 mg 1 mg 1 mL, Intramuscular, AsDirected glucose 4 gm Chewable 16 gram(s) 4 tab(s), Chewed, AsDirected glycerin adult Suppository 1 supp, Rectal, Daily magnesium hydroxide 8% Suspension 30 mL UD 30 mL, Oral, Daily polyethylene glycol 3350 - UD packet 17 gram(s) 15 mL, Oral, qDay Review of Systems Constitutional: Denies weight changes. Denies fever or chills. Denies headache HEENT: Denies nystagmus and dizziness. Respiratory: Denies cough or congestion Cardiovascular: Denies chest pain, palpitations, or chest pressure Gastrointestinal: Denies nausea with emesis. Incontinent of stools, new onset Genitourinary: Denies dysuria or urinary retention Neurological: Denies any cognitive deficits Musculoskeletal: Denies any joint or musculoskeletal pain Skin: Denies rashes or erythema. Endocrine: Denies hot or cold intolerance. No hypoglycemia. Psychiatric: Denies changes in mental status. Allergic/immunologic: Denies environmental allergies or immune dysfunction Past Medical History: Hypertension Diastolic CHF CVA with left facial droop, 2015 Hyperlipidemia Depression Left eye blindness Diabetes mellitus type 2 Procedure/Surgical History: Denies prior surgical history Social History: Alcohol Details: Occasional use Home/Environment Details: Lives at home with spouse Nutrition/Health Details: Appetite good, intake good. Sexual Details: Sexually active: Denies Substance Abuse Details: Denies any substance abuse Tobacco Details: Nicotine Use: Denies any tobacco abuse Family History: Denies family history involving cardiovascular/pulmonary disease Allergies: NKA Code Status: Full code Physical Exam General appearance: Alert and oriented x 4. No acute distress. Appears comfortable and does not appear in acute pain. Pleasant and cooperative. Good eye contact with bright affect. Interactive. Head: Normocephalic no evidence of trauma HEENT: Pupils equal and reactive to light and accommodation, no erythema. Ears with no external lesions or discharge. Nose clear, nares patent, no discharge. Throat normal healthy definition, no redness or erythema. Neck: Trachea midline. No lymphatic adenopathy Cardiac: Regular rate and rhythm, no rubs or murmurs Lungs: Clear to auscultation. No respiratory distress on room air. Abdomen: Soft, nontender, no organomegaly or rebound tenderness. Positive bowel sounds Musculoskeletal: Intact range of motion, no erythema, no polyarthric changes Extremities: No edema or calf tenderness Neurological: Cranial nerves intact. No nystagmus. 5/5 strength left upper and lower extremity. 2/5 strength right upper and lower extremity Skin: No current skin issues noted on exam Psychiatric: Mood good. No anxiety or depression Vitals Signs(Last 24 hrs)__Last Charted Minimum Maximum Heart Rate76(NOVEMBER 18 23:15)76(NOVEMBER 18 23:15)76(NOVEMBER 18 23:15) SBPH 150(NOVEMBER 18 23:58)H 150(NOVEMBER 18 23:58)H 155(NOVEMBER 18 23:15) DBP80(NOVEMBER 18 23:58)80(NOVEMBER 18 23:58)H 95(NOVEMBER 18 23:15) 36hr Labs 11/18 2315 Blood Glucose, [id number] Blood Glucose, [id number] Blood Glucose TSee Flowsheet Assessment/Plan CVA: Patient initially presented to the emergency department with slurred speech and right-sided weakness for approximately [address] and CTA of head and neck were negative. MRI revealed left basal ganglia stroke with worsening symptoms. Follow-up CT showed that this was possibly evolving. Dual antiplatelet therapy with aspirin and Plavix were initiated. Crestor was increased from 20 mg to 40 mg. He was also placed on a 30-day monitoring specialist to rule out atrial fibrillation. Echocardiogram showed a normal EF and no significant structural abnormalities. Bilateral lower extremity Dopplers were negative for DVT. Type 2 diabetes: Patient currently on metformin 500 mg daily and Lantus 15 units at bedtime as well as glipizide 10 mg. Most recent A1c of 9.2% blood sugars variable between 139 and 229. Will continue to monitor trends closely. CHF: Currently on Coreg and furosemide. Echo did show a normal ejection fracture of 55 to 60%. No apparent signs of fluid overload today. Hyperlipidemia: Patient currently on Crestor 40 mg daily. Hypertension: Blood pressures currently uncontrolled on losartan 50 mg daily. Increase losartan to 100 mg daily and continue to monitor trends closely. Depression stable on sertraline 50 mg daily. Condition complex, medically stable Post Admission Physician Evaluation Medical reconciliation performed. Old chart reviewed. Patient status on admission to rehab is medically stable but medically complex. Appropriate for admission to inpatient rehab facility due to need for 24-hour nursing and medical management in a hospital-based setting. Comparison with information on preadmission screening findings information to be consistent. Diagnoses to be monitored and treated include: CVA with right-sided weakness, hypertension, diastolic CHF, diabetes mellitus type 2 Rehabilitation physician to direct team staffing. See daily on rehabilitation rounds. Plan is for acute rehab with PT OT and speech-language therapy rehab nursing social work and nutrition for an acute interdisciplinary team rehab approach. Will work on gait training, ADLs, self-care, and strengthening, bowel and bladder program. DVT prophylaxis and medical management of comorbidities Medical Comorbidities at the Time of Admission Diabetes mellitus type 2, baseline seizure, hypertension, left-sided weakness with prior stroke Barriers to Discharge Functional medical impairments Consulting Physician Dr. Harris Estimated Length of Stay 2-3 weeks Medications reviewed and up to date This document was transcribed using dictation software and may contain typographical errors. Bradley Balderas RN, am scribing for, and in the presence of Carlos Barrientos CNP/DINING ROOM MANAGER. Carlos Balderas CNP/DINING ROOM MANAGER, personally performed the services described in this documentation, as scribed byBradley RN in my presence and it is both accurate and complete. [facility] 06-01-2024 Physical medicine and rehab History and physical note Acute Inpatient Rehab History and Physical Date of Service: 11/20/2023 Date of Admission: 11/19/2023 Attending Physician: Dr. [facility] [facility] 01.2 Right body involvement left brain Etiologic Diagnosis CVA, DM II, Right sided weakness History of Present Illness This is a 53-year-old male admitted to [facility] rehab unit from [facility] stay 11/12- 11/18 who has a history of hypertension, diastolic CHF, CVA with left facial droop in 2014, hyperlipidemia, and depression who presented to hospital with right-sided weakness and slurred speech for [address] days[address] score 5[address] CT of head and CTA of head and neck was negative. Aspirin changed to Plavix 75 mg daily. Home Crestor 20 mg daily was increased to 40 mg. Hemoglobin A1c 9.2%, Lantus was initiated in addition to the sliding scale insulin. MRI showed left basal ganglia stroke. Noted with worsening symptoms during hospital course for which stat CT head obtained showing possible evolving of thestroke. Neurology did recommend 30-day CardioNet monitor and continue with only Plavix as patient was previously on aspirin. Aspirin remains on hold. TTE negative for shunt, normal ejection fraction,55 to 60%. SHRUTHI negative for vegetation or thrombus. Doppler bilateral lower extremities negative for DVT/SVT. Patient deemed medically stable and transferred to [facility] inpatient rehab unit for physical and occupational therapy as well as medical supervision. Today, patient states he is doing okay,he does report that he is not incontinent stools and has no control. Does state that this is new since the stroke. States it is very upsetting to him as he is very young and did not have this issue previously. States he has good control of his bladder. Appetite good and eating well, states he is tolerating the nectar thick liquids, denies any choking. States he does not really like the texture. States he is tolerating regular diet. Blood sugar 139 20 29 per denies hypoglycemic reaction. States he has no control of the right side, states he can have a little bit but has no control at all. States his breathing is comfortable. Denies dizziness or lightheadedness. Follow-up labs are pending today. Patient denies chest pain, shortness of breath, nausea, vomiting, constipation, or diarrhea. Hospital medications, labs, and diagnostics were reviewed and reconciled. Medications (20) Active Scheduled: (11) carvedilol 6.25 mg tablet 6.25 mg 1 tab(s), Oral, BID clopidogrel 75 mg Tablet 75 mg 1 tab(s), Oral, qDay furosemide 20 mg tablet 20 mg 1 tab(s), Oral, qDay glipizide 5 mg Tablet 10 mg 2 tab(s), Oral, qDay insulin glargine 15 unit(s) 0.15 mL, Subcutaneous (INT), qHS losartan 50 mg tablet 50 mg 1 tab(s), Oral, Daily metformin 500 mg Tablet 500 mg 1 tab(s), Oral, qDay multivitamin tablet 1 tab(s), Oral, Daily sduol-0-delw ethyl esters 1000 mg capsule 1,000 mg 1 cap(s), Oral, qDay rosuvastatin 20 mg tablet 40 mg 2 tab(s), Oral, Daily sertraline 50 mg tablet 50 mg 1 tab(s), Oral, qDay Continuous: (0) PRN: (9) acetaminophen 325 mg Tablet 650 mg 2 tab(s), Oral, q4h Al hydrox/Mg hydrox/simethicone 200-200-20 mg/5 mL Susp UD 30 mL, Oral, q6h dextrose 50% Solution Disp syringe 50 mL 12.5 gram(s) 25 mL, IV Push, AsDirected docusate sodium 100 mg Capsule 100 mg 1 cap(s), Oral, BID glucagon recombinant 1 mg 1 mg 1 mL, Intramuscular, AsDirected glucose 4 gm Chewable 16 gram(s) 4 tab(s), Chewed, AsDirected glycerin adult Suppository 1 supp, Rectal, Daily magnesium hydroxide 8% Suspension 30 mL UD 30 mL, Oral, Daily polyethylene glycol 3350 - UD packet 17 gram(s) 15 mL, Oral, qDay Review of Systems Constitutional: Denies weight changes. Denies fever or chills. Denies headache HEENT: Denies nystagmus and dizziness. Respiratory: Denies cough or congestion Cardiovascular: Denies chest pain, palpitations, or chest pressure Gastrointestinal: Denies nausea with emesis. Incontinent of stools, new onset Genitourinary: Denies dysuria or urinary retention Neurological: Denies any cognitive deficits Musculoskeletal: Denies any joint or musculoskeletal pain Skin: Denies rashes or erythema. Endocrine: Denies hot or cold intolerance. No hypoglycemia. Psychiatric: Denies changes in mental status. Allergic/immunologic: Denies environmental allergies or immune dysfunction Past Medical History: Hypertension Diastolic CHF CVA with left facial droop, 2015 Hyperlipidemia Depression Left eye blindness Diabetes mellitus type 2 Procedure/Surgical History: Denies prior surgical history Social History: Alcohol Details: Occasional use Home/Environment Details: Lives at home with spouse Nutrition/Health Details: Appetite good, intake good. Sexual Details: Sexually active: Denies Substance Abuse Details: Denies any substance abuse Tobacco Details: Nicotine Use: Denies any tobacco abuse Family History: Denies family history involving cardiovascular/pulmonary disease Allergies: NKA Code Status: Full code Physical Exam General appearance: Alert and oriented x 4. No acute distress. Appears comfortable and does not appear in acute pain. Pleasant and cooperative. Good eye contact with bright affect. Interactive. Head: Normocephalic no evidence of trauma HEENT: Pupils equal and reactive to light and accommodation, no erythema. Ears with no external lesions or discharge. Nose clear, nares patent, no discharge. Throat normal healthy definition, no redness or erythema. Neck: Trachea midline. No lymphatic adenopathy Cardiac: Regular rate and rhythm, no rubs or murmurs Lungs: Clear to auscultation. No respiratory distress on room air. Abdomen: Soft, nontender, no organomegaly or rebound tenderness. Positive bowel sounds Musculoskeletal: Intact range of motion, no erythema, no polyarthric changes Extremities: No edema or calf tenderness Neurological: Cranial nerves intact. No nystagmus. 5/5 strength left upper and lower extremity. 2/5strength right upper and lower extremity Skin: No current skin issues noted on exam Psychiatric: Mood good. No anxiety or depression Vitals Signs(Last 24 hrs)__Last Charted Minimum Maximum Heart Rate76(NOVEMBER 18 23:15)76(NOVEMBER 18 23:15)76(NOVEMBER 18 23:15) SBPH 150(NOVEMBER 18 23:58)H 150(NOVEMBER 18 23:58)H 155(NOVEMBER 18 23:15) DBP80(NOVEMBER 18 23:58)80(NOVEMBER 18 23:58)H 95(NOVEMBER 18 23:15) 36hr Labs 11/18 2315 Blood Glucose, [id number] Blood Glucose, [id number] Blood Glucose TSee Flowsheet Assessment/Plan CVA: Patient initially presented to the emergency department with slurred speech and right-sided weakness for approximately [address] and CTA of head and neck were negative. MRI revealed left basal ganglia stroke with worsening symptoms. Follow-up CT showed that this was possibly evolving. Dual antiplatelet therapy with aspirin and Plavix were initiated. Crestor was increased from 20 mg to 40 mg. He was also placed on a 30-day monitoring specialist to rule out atrial fibrillation. Echocardiogram showed a normal EF and no significant structural abnormalities. Bilateral lower extremity Dopplers werenegative for DVT. Type 2 diabetes: Patient currently on metformin 500 mg daily and Lantus 15 units at bedtime as wellas glipizide 10 mg. Most recent A1c of 9.2% blood sugars variable between 139 and 229. Will continue to monitor trends closely. CHF: Currently on Coreg and furosemide. Echo did show a normal ejection fracture of 55 to 60%. No apparent signs of fluid overload today. Hyperlipidemia: Patient currently on Crestor 40 mg daily. Hypertension: Blood pressures currently uncontrolled on losartan 50 mg daily. Increase losartan to 100 mg daily and continue to monitor trends closely. Depression stable on sertraline 50 mg daily. Condition complex, medically stable Post Admission Physician Evaluation Medical reconciliation performed. Old chart reviewed. Patient status on admission to rehab is medically stable but medically complex. Appropriate for admission to inpatient rehab facility due to need for 24-hour nursing and medical management in a hospital-based setting. Comparison with information on preadmission screening findings information to be consistent. Diagnoses to be monitored and treated include: CVA with right-sided weakness, hypertension, diastolic CHF, diabetes mellitus type 2 Rehabilitation physician to direct team staffing. See daily on rehabilitation rounds. Plan is for acute rehab with PT OT and speech-language therapy rehab nursing social work and nutrition for an acute interdisciplinary team rehab approach. Will work on gait training, ADLs, self-care,and strengthening, bowel and bladder program. DVT prophylaxis and medical management of comorbidities Medical Comorbidities at the Time of Admission Diabetes mellitus type 2, baseline seizure, hypertension, left-sided weakness with prior stroke Barriers to Discharge Functional medical impairments Consulting Physician Dr. Harris Estimated Length of Stay 2-3 weeks Medications reviewed and up to date This document was transcribed using dictation software and may contain typographical errors. Bradley Balderas RN, am scribing for, and in the presence of Carlos Barrientos CNP/DINING ROOM MANAGER. Carlos Balderas CNP/DINING ROOM MANAGER, personally performed the services described in this documentation, as scribed byBradley RN in my presence and it is both accurate and complete. Digitally Signed by KRISTI BARRIENTOS APRN-STOCK REPAIRER on 11/20/2023 02:25 PM Digitally Signed by MIKEY HARRIS DO on 11/20/2023 04:46 PM [id number] Hospital Discharge instructions Patient Education 11/19/2023 19:11:35 Stroke Prevention, Afng-yc-Pahz Stroke Prevention Some medical conditions and lifestyle choices can lead to a higher risk for a stroke. You can help to prevent a stroke by making nutrition, lifestyle, and other changes. What nutrition changes can be made? Eat healthy foods. ?Choose foods that are high in fiber. These include: ?Fresh fruits. ?Fresh vegetables. ?Whole grains. ?Eat at least 5 or more servings of fruits and vegetables each day. Try to fill half of your plate at each meal with fruits and vegetables. ?Choose lean protein foods. These include: ?Lowfat (lean) cuts of meat. ?Chicken without skin. ?Fish. ?Tofu. ?Beans. ?Nuts. ?Eat low-fat dairy products. ?Avoid foods that: ?Are high in salt (sodium). ?Have saturated fat. ?Have trans fat. ?Have cholesterol. ?Are processed. ?Are premade. Follow eating guidelines as told by your doctor. These may include: ?Reducing how many calories you eat and drink each day. ?Limiting how much salt you eat or drink each day to 1,500 milligrams (mg). ?Using only healthy fats for cooking. These include: ?[place] oil. ?Canola oil. ?Smilax oil. ?Counting how many carbohydrates you eat and drink each day. What lifestyle changes can be made? Try to stay at a healthy weight. Talk to your doctor about what a good weight is for you. Get at least 30 minutes of moderate physical activity at least 5 days a week. This can include: ?Fast walking. ?Biking. ?Swimming. Do not use any products that have nicotine or tobacco. This includes cigarettes and e-cigarettes. If you need help quitting, ask your doctor. Avoid being around tobacco smoke in general. Limit how much alcohol you drink to no more than 1 drink a day for non women and 2 drinks aday for men. One drink equals 12 oz of beer, 5 oz of wine, or 1 oz of hard liquor. Do not use drugs. Avoid taking control pills. Talk to your doctor about the risks of taking control pillsif: ?You are over 35 years old. ?You smoke. ?You get migraines. ?You have had a blood clot. What other changes can be made? Manage your cholesterol. ?It is important to eat a healthy diet. ?If your cholesterol cannot be managed through your diet, you may also need to take medicines. Takemedicines as told by your doctor. Manage your diabetes. ?It is important to eat a healthy diet and to exercise regularly. ?If your blood sugar cannot be managed through diet and exercise, you may need to take medicines. Take medicines as told by your doctor. Control your high blood pressure (hypertension). ?Try to keep your blood pressure below 130/80. This can help lower your risk of stroke. ?It is important to eat a healthy diet and to exercise regularly. ?If your blood pressure cannot be managed through diet and exercise, you may need to take medicines. Take medicines as told by your doctor. ?Ask your doctor if you should check your blood pressure at home. ?Have your blood pressure checked every year. Do this even if your blood pressure is normal. Talk to your doctor about getting checked for a sleep disorder. Signs of this can include: ?Snoring a lot. ?Feeling very tired. Take [id number] and prescription medicines only as told by your doctor. These may include aspirin or blood thinners (antiplatelets or anticoagulants). Make sure that any other medical conditions you have are managed. Where to find more information [place] Stroke Association: www.strokeassociation.org National Stroke Association: www.stroke.org Get help right away if: You have any symptoms of stroke. BE FAST is an easy way to remember the main warning signs: ?B - Balance. Signs are dizziness, sudden trouble walking, or loss of balance. ?E - Eyes. Signs are trouble seeing or a sudden change in how you see. ?F - Face. Signs are sudden weakness or loss of feeling of the face, or the face or eyelid droopingon one side. ?A - Arms. Signs are weakness or loss of feeling in an arm. This happens suddenly and usually on one side of the body. ?S - Speech. Signs are sudden trouble speaking, slurred speech, or trouble understanding what people say. ?T - Time. Time to call emergency services. Write down what time symptoms started. You have other signs of stroke, such as: ?A sudden, very bad headache with no known cause. ?Feeling sick to your stomach (nausea). ?Throwing up (vomiting). ?Jerky movements you cannot control (seizure). These symptoms may represent a serious problem that is an emergency. Do not wait to see if the symptoms will go away. Get medical help right away. Call your local emergency services (911 in the [place] Do not drive yourself to the hospital. Summary You can prevent a stroke by eating healthy, exercising, not smoking, drinking less alcohol, and treating other health problems, such as diabetes, high blood pressure, or high cholesterol. Do not use any products that contain nicotine or tobacco, such as cigarettes and e-cigarettes. Get help right away if you have any signs or symptoms of a stroke. This information is not intended to replace advice given to you by your health care provider. Make sure you discuss any questions you have with your health care provider. Document Released: 12/06/2012 Document Revised: 08/03/2019 Document Reviewed: 09/08/2017 Elsevier Patient Education 2020 [employer] Follow Up Care 11/12/2023 17:12:47 With:[facility] [phone] Address:Unknown When:1-2 days Comments:Room 236 With:[facility] Address: [address] [place] [address]- When:1-2 days Comments:please call for apt With:MARTITA ERVIN MD, Internal Medicine Address: [address] [place] [id number]- When:1-2 days Comments:please call for apt [facility] 05-31-2024 Note Discharge Instructions Thank you for allowing [facility] to assist you with your healthcare needs. The following is importantdischarge information regarding your hospital visit. Your Care Team MARTITA ERVIN MD What to do next Instructions From Your Doctor stroke - plavix therapy, stop home aspirin 30 day event monitor to evaluate if there is a bad heart rhythm Heart ultrasounds were normal Follow Up Appointments Follow Up with [facility] [phone] When:Within 1-2 days Additional Information: Room 236 Follow Up with [facility] When:Within 1-2 days Where:[address] [place] [address]- Additional Information: please call for apt Follow Up with MARTITA ERVIN MD, Internal Medicine When:Within 1-2 days Where:[address] [place] [address]- Additional Information: please call for apt The Following Activity and Diet Have Been Ordered for You Transfer of Care Activity - Ordered -- Activity As Tolerated, 11/18/23 13:17:00 EDT Transfer of Care Diet - Ordered -- Type of Diet: Regular Diet, 11/18/23 13:17:00 EDT The Following Equipment Has Been Ordered for You No qualifying data available. The Following Treatments Have Been Ordered for You Discharge Labs No qualifying data available. Discharge Radiology No qualifying data available. Other Therapies Discharge Event Monitor Instructions - Ordered -- 11/18/23 13:20:02 EDT, You have been ordered mobile outpatient telemetry. You should receive a device in the mail with further instructions. If you have not received a device within 7 days after discharge, please call [facility] at [phone]. Post Acute Orders Transfer of Care Admission Level of Care - Ordered -- Level of Care Acute Rehab, 11/18/23 13:18:00 EDT Transfer of Care Code Status - Ordered -- Full Code, Constant Order Transfer of Care Communication Order - Ordered -- Expect less than 30 day stay., 11/18/23 13:18:00 EDT Transfer of Care Orders Electronically Signed By - Ordered -- 11/18/23 13:17:00 EDT, BOBBI ALCAZAR MD Transfer of Care Prognosis - Ordered -- Fair, Patient Aware: Yes Transfer of Care Rehab Potential - Ordered -- Rehab potential fair, 11/18/23 13:18:00 EDT Someone Will Contact You Regarding These Home Health Referrals No home referrals have been ordered for you. No one will call you. Allergies NKA Medications Please ask your primary doctor or pharmacist before taking any other medication not listed, including over the counter drugs, herbal medications, vitamins and or supplements as they may interact withyour home medications. What How Much When Instructions Last Dose New clopidogrel (Plavix 75 mg oral tablet) 1 tab(s) by mouth Once a day New insulin glargine (Lantus 100 units/ mL10 ml vial solution) 15 unit(s) Subcutaneous (INT) Daily at bedtime Changed rosuvastatin (rosuvastatin 20 mg oral tablet) 2 tab(s) by mouth Every day Changed sertraline (sertraline 50 mg oral tablet) 1 tab(s) by mouth Once a day Changed sertraline (sertraline 50 mg oral tablet) 1 tab(s) by mouth Once a day Unchanged carvedilol (Coreg 6.25 mg oral tablet) 1 tab(s) by mouth Two (2) times a day Unchanged furosemide (furosemide 20 mg oral tablet) 1 tab(s) by mouth Once a day Unchanged glipiZIDE (glipiZIDE 10 mg oral tablet) 1 tab(s) by mouth Once a day Unchanged herbal/ nutritional product (garlic oral capsule) 1 cap by mouth Every day Unchanged losartan (losartan 50 mg oral tablet) 1 tab(s) by mouth Every day Unchanged metFORMIN (metFORMIN 500 mg oral tablet (IR)) 1 tab(s) by mouth Once a day Unchanged multivitamin (Multivitamin) 1 tab(s) by mouth Every day Unchanged omega-3 polyunsaturated fatty acids (Fish Oil 1000 mg oral capsule) 1 cap by mouth Once a day What How Much When Comments Stop Taking aspirin (aspirin 81 mg oral delayed release tablet) 1 tab(s) by mouth Every day Please take this list to your next doctor s visit. Bring all medications you take, including over the counter medications, herbals and other supplements with you to your doctor s visit. Patients and families are reminded to discard old lists and to update any records with all medication providers or retail pharmacies. Education Materials Stroke Prevention Some medical conditions and lifestyle choices can lead to a higher risk for a stroke. You can help to prevent a stroke by making nutrition, lifestyle, and other changes. What nutrition changes can be made? Eat healthy foods. ? Choose foods that are high in fiber. These include: ? Fresh fruits. ? Fresh vegetables. ? Whole grains. ? Eat at least 5 or more servings of fruits and vegetables each day. Try to fill half of your plate at each meal with fruits and vegetables. ? Choose lean protein foods. These include: ? Lowfat (lean) cuts of meat. ? Chicken without skin. ? Fish. ? Tofu. ? Beans. ? Nuts. ? Eat low-fat dairy products. ? Avoid foods that: ? Are high in salt (sodium). ? Have saturated fat. ? Have trans fat. ? Have cholesterol. ? Are processed. ? Are premade. Follow eating guidelines as told by your doctor. These may include: ? Reducing how many calories you eat and drink each day. ? Limiting how much salt you eat or drink each day to 1,500 milligrams (mg). ? Using only healthy fats for cooking. These include: ? [place] oil. ? Canola oil. ? Smilax oil. ? Counting how many carbohydrates you eat and drink each day. What lifestyle changes can be made? Try to stay at a healthy weight. Talk to your doctor about what a good weight is for you. Get at least 30 minutes of moderate physical activity at least 5 days a week. This can include: ? Fast walking. ? Biking. ? Swimming. Do not use any products that have nicotine or tobacco. This includes cigarettes and e-cigarettes. If you need help quitting, ask your doctor. Avoid being around tobacco smoke in general. Limit how much alcohol you drink to no more than 1 drink a day for non women and 2 drinks aday for men. One drink equals 12 oz of beer, 5 oz of wine, or 1 oz of hard liquor. Do not use drugs. Avoid taking control pills. Talk to your doctor about the risks of taking control pillsif: ? You are over 35 years old. ? You smoke. ? You get migraines. ? You have had a blood clot. What other changes can be made? Manage your cholesterol. ? It is important to eat a healthy diet. ? If your cholesterol cannot be managed through your diet, you may also need to take medicines. Take medicines as told by your doctor. Manage your diabetes. ? It is important to eat a healthy diet and to exercise regularly. ? If your blood sugar cannot be managed through diet and exercise, you may need to take medicines. Take medicines as told by your doctor. Control your high blood pressure (hypertension). ? Try to keep your blood pressure below 130/80. This can help lower your risk of stroke. ? It is important to eat a healthy diet and to exercise regularly. ? If your blood pressure cannot be managed through diet and exercise, you may need to take medicines.Take medicines as told by your doctor. ? Ask your doctor if you should check your blood pressure at home. ? Have your blood pressure checked every year. Do this even if your blood pressure is normal. Talk to your doctor about getting checked for a sleep disorder. Signs of this can include: ? Snoring a lot. ? Feeling very tired. Take ntqy-hzp-zzgkzaw and prescription medicines only as told by your doctor. These may include aspirin or blood thinners (antiplatelets or anticoagulants). Make sure that any other medical conditions you have are managed. Where to find more information [place] Stroke Association: www.strokeassociation.org National Stroke Association: www.stroke.org Get help right away if: You have any symptoms of stroke. BE FAST is an easy way to remember the main warning signs: ? B - Balance. Signs are dizziness, sudden trouble walking, or loss of balance. ? E - Eyes. Signs are trouble seeing or a sudden change in how you see. ? F - Face. Signs are sudden weakness or loss of feeling of the face, or the face or eyelid drooping on one side. ? A - Arms. Signs are weakness or loss of feeling in an arm. This happens suddenly and usually on oneside of the body. ? S - Speech. Signs are sudden trouble speaking, slurred speech, or trouble understanding what peoplesay. ? T - Time. Time to call emergency services. Write down what time symptoms started. You have other signs of stroke, such as: ? A sudden, very bad headache with no known cause. ? Feeling sick to your stomach (nausea). ? Throwing up (vomiting). ? Jerky movements you cannot control (seizure). These symptoms may represent a serious problem that is an emergency. Do not wait to see if the symptoms will go away. Get medical help right away. Call your local emergency services (911 in the [place] Do not drive yourself to the hospital. Summary You can prevent a stroke by eating healthy, exercising, not smoking, drinking less alcohol, and treating other health problems, such as diabetes, high blood pressure, or high cholesterol. Do not use any products that contain nicotine or tobacco, such as cigarettes and e-cigarettes. Get help right away if you have any signs or symptoms of a stroke. This information is not intended to replace advice given to you by your health care provider. Make sure you discuss any questions you have with your health care provider. Document Released: 12/06/2012 Document Revised: 08/03/2019 Document Reviewed: 09/08/2017 [employer] Patient Education 2020 [place]. Additional Information VACCINATE! IT SAVES LIVES! Members of the community who have not yet received the COVID-19 vaccine and would like to receive it can visit one of [facility] vaccine clinics. There are many vaccine clinic locations within the [facility]. For locations and available times, please visit [email or web address].[email or web address]/. It is important to note that some COVID mobile vaccine clinics are held outdoors and may be canceled in rainy or stormy conditions. To learn more about pediatric vaccinations (ages 5-11), we invite you to visit the [facility] webpage. [email or web address] learn more about the COVID-19 vaccine, we invite you to visit the CDC website for a list of frequently asked questions.https://www.cdc.gov/coronavirus/2019-ncov/vaccines/faq.html [facility] Patient Portal Access Instructions: Stay connected with your healthcare team and access your personal medical information anytime with the [facility] Patient Portal. Please follow the directions below to create your [facility] account: 1.Access the email account you provided upon registration to the hospital/physician office.2.Look for an invitation email from [facility].3.Open the email and access the invitation link: AcceptInvitation to [facility].4.Fill in the required nguyễn to create your account. To access your account, visit [email or web address]. Click the blue button labeled Access Patient Portal and then log in with the username and password that you created in the steps above. You will be able to view your test results, lab results, a summary of your visits, upcoming appointments and more. There is also a convenient messaging option where you can send secure messages to your p rovider. In addition, you will have the ability to download any documents or summaries to your computer and/or send the information securely to a physician. Remember that your healthcare information is confidential, so carefully consider who you will allowto register on the [facility] Patient Portal for access to your information. You can also access the [facility] on the [facility]. Simply click on Patient Portal and then log into your account. If you would like to receive a full copy of your medical records, please contact the [facility] Medical Records Department by calling [phone], Wednesday through Wednesday between 8 a.m. and 4:30 p.m. HOW TO SAFELY DISPOSE OF PRESCRIPTION MEDICATIONS Please use one of the following methods to safely dispose of your unused medications. 1.Use a drug disposal kit: the drug disposal pouch allows you to safely discard your old and unuseddrugs. Ask your nurse to give you one when you are discharged.2.Visit a local take-back location: Many local pharmacies and police departments have programs that collect old and unwanted prescriptiondrugs. Call your local pharmacy or go to http://bit.ly/8N4Wg9c to find one close to you.3.Make use of household items: Use cat litter or old coffee grounds to dispose medications if other options arenot available. Mix your drugs with these household products, seal them in an airtight container andthrow it into the garbage. Call [facility]: [phone] to be sure your drugs can be disposed of in this way. Some medicines may require a different approach.4.Never flush your medications down the toilet. IF YOU HAVE BEEN PRESCRIBED AN OPIOID FOR PAIN If you have been prescribed an opioid (such as hydrocodone, oxycodone or morphine), it is critical to understand the possible side effects and risks of opioid pain medications. Even when taken as directed, opioids can have several side effects including: Tolerance, meaning you might need to take more of a medication for the same pain relief. Nausea, vomiting and/or constipation. Sleepiness, dizziness, dry mouth, confusion, depression or itching. Physical dependence, meaning you have withdrawal symptoms when a medication is stopped, can develop within a few days. KNOW YOUR RESPONSIBILITIES It is important to know exactly how much and how often to take the opioid pain medications you are prescribed. Never take opioids in higher amounts or more often than prescribed. Do not combine opioids with alcohol or other drugs that cause drowsiness, such as benzodiazepines, also known as benzos, including diazepam and alprazolam, muscle relaxants or sleep aids. Never sell or share prescription opioids. This is illegal. Store opioids in a secure place and out of reach of others (including children, family, friends and visitors). The last page of this document has been signed and retained as a CHART COPY. Signatures Patient Education Materials Stroke Prevention, Titm-vg-Golc Medication Leaflets My discharge plan and instructions have been reviewed and explained to me and I,CABRERA SOTELO understand my current condition and have read and understand these discharge instructions. I have received a written copy of the plan/instructions. If I have questions, I am aware that I should contact my doctor. 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 The following is importantdischarge information regarding your hospital visit. Your Care Team MARTITA ERVIN MD What to do next Instructions From Your Doctor stroke - plavix therapy, stop home aspirin 30 day event monitor to evaluate if there is a bad heart rhythm Heart ultrasounds were normal Follow [phone] When:Within 1-2 days Additional Information: Room 236 Follow Up with [facility] When:Within 1-2 days Where:[address] [place] [address]- Additional Information: please call for apt Follow Up with MARTITA ERVIN MD, Internal Medicine When:Within 1-2 days Where:[address] [facility] [address] [place] [address]- Additional Information: please call for apt The Following Activity and Diet Have Been Ordered for You Transfer of Care Activity - Ordered -- Activity As Tolerated, 11/18/23 13:17:00 EDT Transfer of Care Diet - Ordered -- Type of Diet: Regular Diet, 11/18/23 13:17:00 EDT The Following Equipment Has Been Ordered for You No qualifying data available. The Following Treatments Have Been Ordered for You Discharge Labs No qualifying data available. Discharge Radiology No qualifying data available. Other Therapies Discharge Event Monitor Instructions - Ordered -- 11/18/23 13:20:02 EDT, You have been ordered mobile outpatient telemetry. You should receive a device in the mail with further instructions. If you have not received a device within 7 days after discharge, please call [facility] at [phone]. Post Acute Orders Transfer of Care Admission Level of Care - Ordered -- Level of Care Acute Rehab, 11/18/23 13:18:00 EDT Transfer of Care Code Status - Ordered -- Full Code, Constant Order Transfer of Care Communication Order - Ordered -- Expect less than 30 day stay., 11/18/23 13:18:00 EDT Transfer of Care Orders Electronically Signed By - Ordered -- 11/18/23 13:17:00 EDT, BOBBI ALCAZAR MD Transfer of Care Prognosis - Ordered -- Fair, Patient Aware: Yes Transfer of Care Rehab Potential - Ordered -- Rehab potential fair, 11/18/23 13:18:00 EDT Someone Will Contact You Regarding These Home Health Referrals No home referrals have been ordered for you. No one will call you. Allergies NKA Medications Please ask your primary doctor or pharmacist before taking any other medication not listed, including over the counter drugs, herbal medications, vitamins and or supplements as they may interact withyour home medications. What How Much When Instructions Last Dose New clopidogrel (Plavix 75 mg oral tablet) 1 tab(s) by mouth Once a day New insulin glargine (Lantus 100 units/ mL10 ml vial solution) 15 unit(s) Subcutaneous (INT) Daily at bedtime Changed rosuvastatin (rosuvastatin 20 mg oral tablet) 2 tab(s) by mouth Every day Changed sertraline (sertraline 50 mg oral tablet) 1 tab(s) by mouth Once a day Changed sertraline (sertraline 50 mg oral tablet) 1 tab(s) by mouth Once a day Unchanged carvedilol (Coreg 6.25 mg oral tablet) 1 tab(s) by mouth Two (2) times a day Unchanged furosemide (furosemide 20 mg oral tablet) 1 tab(s) by mouth Once a day Unchanged glipiZIDE (glipiZIDE 10 mg oral tablet) 1 tab(s) by mouth Once a day Unchanged herbal/ nutritional product (garlic oral capsule) 1 cap by mouth Every day Unchanged losartan (losartan 50 mg oral tablet) 1 tab(s) by mouth Every day Unchanged metFORMIN (metFORMIN 500 mg oral tablet (IR)) 1 tab(s) by mouth Once a day Unchanged multivitamin (Multivitamin) 1 tab(s) by mouth Every day Unchanged omega-3 polyunsaturated fatty acids (Fish Oil 1000 mg oral capsule) 1 cap by mouth Once a day What How Much When Comments Stop Taking aspirin (aspirin 81 mg oral delayed release tablet) 1 tab(s) by mouth Every day Please take this list to your next doctor s visit. Bring all medications you take, including over the counter medications, herbals and other supplements with you to your doctor s visit. Patients and families are reminded to discard old lists and to update any records with all medication providers or retail pharmacies. Education Materials Stroke Prevention Some medical conditions and lifestyle choices can lead to a higher risk for a stroke. You can help to prevent a stroke by making nutrition, lifestyle, and other changes. What nutrition changes can be made? Eat healthy foods. ? Choose foods that are high in fiber. These include: ? Fresh fruits. ? Fresh vegetables. ? Whole grains. ? Eat at least 5 or more servings of fruits and vegetables each day. Try to fill half of your plate at each meal with fruits and vegetables. ? Choose lean protein foods. These include: ? Lowfat (lean) cuts of meat. ? Chicken without skin. ? Fish. ? Tofu. ? Beans. ? Nuts. ? Eat low-fat dairy products. ? Avoid foods that: ? Are high in salt (sodium). ? Have saturated fat. ? Have trans fat. ? Have cholesterol. ? Are processed. ? Are premade. Follow eating guidelines as told by your doctor. These may include: ? Reducing how many calories you eat and drink each day. ? Limiting how much salt you eat or drink each day to 1,500 milligrams (mg). ? Using only healthy fats for cooking. These include: ? [place] oil. ? Canola oil. ? Smilax oil. ? Counting how many carbohydrates you eat and drink each day. What lifestyle changes can be made? Try to stay at a healthy weight. Talk to your doctor about what a good weight is for you. Get at least 30 minutes of moderate physical activity at least 5 days a week. This can include: ? Fast walking. ? Biking. ? Swimming. Do not use any products that have nicotine or tobacco. This includes cigarettes and e-cigarettes. If you need help quitting, ask your doctor. Avoid being around tobacco smoke in general. Limit how much alcohol you drink to no more than 1 drink a day for non women and 2 drinks aday for men. One drink equals 12 oz of beer, 5 oz of wine, or 1 oz of hard liquor. Do not use drugs. Avoid taking control pills. Talk to your doctor about the risks of taking control pillsif: ? You are over 35 years old. ? You smoke. ? You get migraines. ? You have had a blood clot. What other changes can be made? Manage your cholesterol. ? It is important to eat a healthy diet. ? If your cholesterol cannot be managed through your diet, you may also need to take medicines. Take medicines as told by your doctor. Manage your diabetes. ? It is important to eat a healthy diet and to exercise regularly. ? If your blood sugar cannot be managed through diet and exercise, you may need to take medicines. Take medicines as told by your doctor. Control your high blood pressure (hypertension). ? Try to keep your blood pressure below 130/80. This can help lower your risk of stroke. ? It is important to eat a healthy diet and to exercise regularly. ? If your blood pressure cannot be managed through diet and exercise, you may need to take medicines.Take medicines as told by your doctor. ? Ask your doctor if you should check your blood pressure at home. ? Have your blood pressure checked every year. Do this even if your blood pressure is normal. Talk to your doctor about getting checked for a sleep disorder. Signs of this can include: ? Snoring a lot. ? Feeling very tired. Take wikt-aae-wosgttp and prescription medicines only as told by your doctor. These may include aspirin or blood thinners (antiplatelets or anticoagulants). Make sure that any other medical conditions you have are managed. Where to find more information [place] Stroke Association: www.strokeassociation.org National Stroke Association: www.stroke.org Get help right away if: You have any symptoms of stroke. BE FAST is an easy way to remember the main warning signs: ? B - Balance. Signs are dizziness, sudden trouble walking, or loss of balance. ? E - Eyes. Signs are trouble seeing or a sudden change in how you see. ? F - Face. Signs are sudden weakness or loss of feeling of the face, or the face or eyelid drooping on one side. ? A - Arms. Signs are weakness or loss of feeling in an arm. This happens suddenly and usually on oneside of the body. ? S - Speech. Signs are sudden trouble speaking, slurred speech, or trouble understanding what peoplesay. ? T - Time. Time to call emergency services. Write down what time symptoms started. You have other signs of stroke, such as: ? A sudden, very bad headache with no known cause. ? Feeling sick to your stomach (nausea). ? Throwing up (vomiting). ? Jerky movements you cannot control (seizure). These symptoms may represent a serious problem that is an emergency. Do not wait to see if the symptoms will go away. Get medical help right away. Call your local emergency services (911 in the [place] Do not drive yourself to the hospital. Summary You can prevent a stroke by eating healthy, exercising, not smoking, drinking less alcohol, and treating other health problems, such as diabetes, high blood pressure, or high cholesterol. Do not use any products that contain nicotine or tobacco, such as cigarettes and e-cigarettes. Get help right away if you have any signs or symptoms of a stroke. This information is not intended to replace advice given to you by your health care provider. Make sure you discuss any questions you have with your health care provider. Document Released: 12/06/2012 Document Revised: 08/03/2019 Document Reviewed: 09/08/2017 [employer] Patient Education 2020 [employer] Additional Information VACCINATE! IT SAVES LIVES! Members of the community who have not yet received the COVID-19 vaccine and would like to receive it can visit one of [facility] vaccine clinics. There are many vaccine clinic locations within the [facility]. For locations and available times, please visit [email or web address].gov/. It is important to note that some COVID mobile vaccine clinics are held outdoors and may be canceled in rainy or stormy conditions. To learn more about pediatric vaccinations (ages 5-11), we invite you to visit the [facility] webpage. [email or web address]/[email or web address] learn more about the COVID-19 vaccine, we invite you to visit the CDC website for a list of frequently asked questions.https://www.cdc.gov/coronavirus/2019-ncov/vaccines/faq.html [email or web address] Patient Portal Access Instructions: Stay connected with your healthcare team and access your personal medical information anytime with the [facility] Patient Portal. Please follow the directions below to create your [email or web address] account: 1.Access the email account you provided upon registration to the hospital/physician office.2.Look for an invitation email from [facility].3.Open the email and access the invitation link: AcceptInvitation to [email or web address].4.Fill in the required nguyễn to create your account. To access your account, visit [employer]. Click the blue button labeled Access Patient Portal and then log in with the username and password that you created in the steps above. You will be able to view your test results, lab results, a summary of your visits, upcoming appointments and more. There is also a convenient messaging option where you can send secure messages to your p rovider. In addition, you will have the ability to download any documents or summaries to your computer and/or send the information securely to a physician. Remember that your healthcare information is confidential, so carefully consider who you will allowto register on the [facility] for access to your information. You can also access the [facility] on the [place]. Simply click on Patient Portal and then log into your account. If you would like to receive a full copy of your medical records, please contact the [facility] Medical Records Department by calling [phone], Wednesday through Wednesday between 8 a.m. and 4:30 p.m. HOW TO SAFELY DISPOSE OF PRESCRIPTION MEDICATIONS Please use one of the following methods to safely dispose of your unused medications. 1.Use a drug disposal kit: the drug disposal pouch allows you to safely discard your old and unuseddrugs. Ask your nurse to give you one when you are discharged.2.Visit a local take-back location: Many local pharmacies and police departments have programs that collect old and unwanted prescriptiondrugs. Call your local pharmacy or go to http://[employer].Merlin/1P6Gg4y to find one close to you.3.Make use of household items: Use cat litter or old coffee grounds to dispose medications if other options arenot available. Mix your drugs with these household products, seal them in an airtight container andthrow it into the garbage. Call [facility]: [phone] to be sure your drugs can be disposed of in this way. Some medicines may require a different approach.4.Never flush your medications down the toilet. IF YOU HAVE BEEN PRESCRIBED AN OPIOID FOR PAIN If you have been prescribed an opioid (such as hydrocodone, oxycodone or morphine), it is critical to understand the possible side effects and risks of opioid pain medications. Even when taken as directed, opioids can have several side effects including: Tolerance, meaning you might need to take more of a medication for the same pain relief. Nausea, vomiting and/or constipation. Sleepiness, dizziness, dry mouth, confusion, depression or itching. Physical dependence, meaning you have withdrawal symptoms when a medication is stopped, can develop within a few days. KNOW YOUR RESPONSIBILITIES It is important to know exactly how much and how often to take the opioid pain medications you are prescribed. Never take opioids in higher amounts or more often than prescribed. Do not combine opioids with alcohol or other drugs that cause drowsiness, such as benzodiazepines, also known as benzos, including diazepam and alprazolam, muscle relaxants or sleep aids. Never sell or share prescription opioids. This is illegal. Store opioids in a secure place and out of reach of others (including children, family, friends and visitors). The last page of this document has been signed and retained as a CHART COPY. Signatures Patient Education Materials Stroke Prevention, [id number] Medication Leaflets My discharge plan and instructions have been reviewed and explained to me and I,CABRERA SOTELO understand my current condition and have read and understand these discharge instructions. I have received a written copy of the plan/instructions. If I have questions, I am aware that I should contact my doctor. 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 was given fluids and permissive HTN stabilized plavix monotherapy statin 40mg high intensity statin SHRUTHI with no acute findings 30d event monitor DM2 Watch blood sugars closely. lantus, 15 units qhs. oral glipizde Plan DC to SNF/rehab Hospital Course 53-year-old male with medical history significant for CHF, hypertension, stroke. Patient presents to the hospital with right-sided facial droop right-sided weakness of the arm and leg. Patient had NIH of 5 on presentation. Patient did have CT of the head and CT angio of the head these were negativefor LVO. Patient was brought to the hospital for further stroke workup. Patient had MRI performed which showed right left basal ganglia stroke. Patient did have worsening symptomatology during hospital stay now is having right arm complete flaccidity and it has been better on initial presentation. Patient was recommended no acute intervention by neurology other than allowing permissive hypertension. Patient was recommended for only single antiplatelet therapy. Patient did have transesophageal echocardiogram performed which showed no source of embolization but was recommended for transesophageal echocardiogram to into significant risk of underlying atrial fibrillation. Patient also has had poor glucose control as an outpatient as of initiation on insulin therapy which has improved glucose.Transesophageal echocardiogram obtained showing no vegetation nor thrombus. Patient will have 30-day event monitor at discharge continues to work well with physical therapy. Patient stable ready for discharge with close outpatient follow-up. 11/17 patient today on day of discharge is doing well still having residual right-sided weakness. Allergies NKA Consults Consult to Diabetes Education (Diabetes Education Consult) - Ordered -- 11/14/23 12:44:00 EDT, Blood Glucose Monitoring, Once, here with stroke poor alc control Consult to Diabetes Education - Ordered -- 11/16/23 17:33:00 EDT, Blood Glucose Monitoring, Once Consult to Physician - Ordered -- 11/13/23 13:08:00 EDT, FEDERICO MULLEN MD, Routine, cva Consult to Physician - Ordered -- 11/15/23 10:32:00 EDT, PAPITO PADILLA MD, Routine, multiple recent strokes, SHRUTHI Imaging Results and Diagnostics XR Shoulder Minimum 2 Views Right Result Date: November 17, 2023 Verified By: CHUCKIE SAMUELS MD CLINICAL STATEMENT: IMPRESSION: No acute fracture or dislocation. Mild degenerative changes CT Angiography Head w/ Contrast Result Date: November 16, 2023 Verified By: RENEA SHIELDS MD CLINICAL STATEMENT: IMPRESSION: 1. Indeterminate age occlusion of the proximal M1 right middle cerebralartery with collaterals opacifying the M2 through M4 branches..2. Mild to moderate focal stenosis within the proximal basilar artery.3. Moderate left ICA stenosis.4. Diffuse atherosclerotic disease throughout the left posterior cerebralartery.5. Moderate stenosis of the proximal P1 right posterior cerebral artery.Communication was initiated for the radiology call center by this radiologistthrough PACS at 11:37 a.m. on 11/16/2023with instructions to provide theresults of this examination to a licensed caregiver. CT Angiography Neck w/ Contrast Result Date: November 16, 2023 Verified By: RENEA SHIELDS MD CLINICAL STATEMENT: IMPRESSION: 1. No hemodynamically significant flow-limiting stenosis.2. Normal CTA of the neck.The estimate of the degree of stenosis included in this report is based onthe NASCET method for calculating stenosis, using the internal carotid arterydistal to the stenosis as the reference point. CT Head or Brain w/o Contrast Result Date: November 16, 2023 Verified By: RENEA SHIELDS MD CLINICAL STATEMENT: IMPRESSION: No acute intracranial abnormality identified. Unchanged early subacute lacunar infarct in the left basal ganglia. Parenchymal volume loss and chronic microvascular white matter ischemicdisease. I have personally reviewed the images of this examination and agree with theresident's findings and interpretation. CT Head or Brain w/o Contrast Result Date: November 15, 2023 Verified By: MIKEY LYN MD CLINICAL STATEMENT: IMPRESSION: Volume loss, small vessel ischemic changes and evolving right lacunar infarct MRI Brain w/o Contrast Result Date: November 14, 2023 Verified By: MIKEY LYN MD CLINICAL STATEMENT: IMPRESSION: Acute left basal ganglia lacunar infarct. Small vessel ischemic disease, significantly greater on the right. Physical Exam Vitals and Measurements T: 36.7 C (Oral) TMIN: 35.1 C (Oral) TMAX: 36.9 C (Oral) HR: 67 RR: 18 BP: 149/78 SpO2: 96% Weight Dosing Weight: 94 kg (11/13/23) Exam: HEENT: Occular ROM intact, No JVD, No carotid bruit CVS: regular rate and rhythm, no murmurs Lungs: clear to auscultation, good air entry Abdomen: soft, non distended, bowel sounds +, no tenderness Extremities: RUE weakness WEBSITE PROJECT MANAGER: Alert, No focal deficits identified. Skin: No visible rashes or Lesions Code Status Code Status - Ordered -- 11/13/23 13:09:00 EDT, Full Code, Constant Order Admission Date 11/13/23 Discharge Date 11/18/23 Patient Instructions stroke - plavix therapy, stop home aspirin 30 day event monitor to evaluate if there is a bad heart rhythm Heart ultrasounds were normal Medications New Prescription clopidogrel (Plavix 75 mg oral tablet)1 tab(s) by mouth once a day. insulin glargine (Lantus 100 units/mL10 ml vial solution)15 unit(s) Subcutaneous (INT) daily at bedtime. Changed rosuvastatin (rosuvastatin 20 mg oral tablet)2 tab(s) by mouth every day. sertraline (sertraline 50 mg oral tablet)1 tab(s) by mouth once a day. sertraline (sertraline 50 mg oral tablet)1 tab(s) by mouth once a day. Unchanged carvedilol (Coreg 6.25 mg oral tablet)1 tab(s) by mouth two (2) times a day. furosemide (furosemide 20 mg oral tablet)1 tab(s) by mouth once a day. glipiZIDE (glipiZIDE 10 mg oral tablet)1 tab(s) by mouth once a day. herbal/nutritional product (garlic oral capsule)1 cap by mouth every day. losartan (losartan 50 mg oral tablet)1 tab(s) by mouth every day. metFORMIN (metFORMIN 500 mg oral tablet (IR))1 tab(s) by mouth once a day. multivitamin (Multivitamin)1 tab(s) by mouth every day. omega-3 polyunsaturated fatty acids (Fish Oil 1000 mg oral capsule)1 cap by mouth once a day. Discontinued aspirin (aspirin 81 mg oral delayed release tablet)1 tab(s) by mouth every day. Follow Up Follow Up with [facility] When:Within 1-2 days Where:[address] [place] [address]- Additional Information: please call for apt Follow Up with MARTITA ERVIN MD, Internal Medicine When:Within 1-2 days Where:[address] [facility] [address] [address]- Additional Information: please call for apt Follow Up Appointments No qualifying data available. Follow Up Labs/Studies Discharge Labs No Follow-up Labs Discharge Studies No Follow-up Studies Discharge Diet Transfer of Care Diet - Ordered -- Type of Diet: Regular Diet, 11/18/23 13:17:00 EDT Discharge Activity Transfer of Care Activity - Ordered -- Activity As Tolerated, 11/18/23 13:17:00 EDT Condition on Discharge stable Discharge Disposition rehab Time Spent >30 minutes Digitally Signed by BOBBI ACLAZAR MD on 11/18/2023 01:23 PM [facility] [id number] Cardiology Progress note Subjective No acute overnight events, patient underwent SHRUTHI and tolerated procedure well. Objective Vitals and Measurements T: 36.7 C (Oral) TMIN: 35.1 C (Oral) TMAX: 36.9 C (Oral) HR: 67 RR: 18 BP: 149/78 SpO2: 96% Intake and Output 7AM Yesterday to 7AM Today Intake and Output (Last 24 hours) Intake Oral Intake 700.00 Administration Information 700.00 Output Stool Count 1.00 Urine Count 3.00 Total Summary Total Intake 1400.00 Total Output 0.00 Fluid Balance 1400.00 Physical Exam General Appearance: NAD Head: NCAT EENT: no gross abnormalities Neck: no JVD appreciated Cardiac: NS1S2 Lungs: CTAB Abdomen: soft, NT/ND Musculoskeletal: ROM wnl Extremities: no pitting edema Neurological: Follows commands Skin: warm, dry Psychiatric: normal mentation Weight Dosing Weight: 94 kg (11/13/23) Medications Medications (18) Active Scheduled: (12) carvedilol 6.25 mg tablet 6.25 mg 1 tab(s), Oral, BID clopidogrel 75 mg Tablet 75 mg 1 tab(s), Oral, qDay enoxaparin 40 mg/ 0.4mL syringe 40 mg 0.4 mL, Subcutaneous, qDay gabapentin 300 mg Capsule 300 mg 1 cap(s), Oral, TID insulin glargine 15 unit(s) 0.15 mL, Subcutaneous (INT), qHS insulin lispro 100 units/mL Soln (3 mL) Give 0-5 units/dose, Subcutaneous, TIDAC losartan 50 mg tablet 50 mg 1 tab(s), Oral, Daily metformin 500 mg Tablet 500 mg 1 tab(s), Oral, qDay multivitamin tablet 1 tab(s), Oral, Daily [id number] ethyl esters 1000 mg capsule 1,000 mg 1 cap(s), Oral, qDay rosuvastatin 20 mg tablet 40 mg 2 tab(s), Oral, Daily sertraline 50 mg tablet 50 mg 1 tab(s), Oral, qDay Continuous: (0) PRN: (6) acetaminophen 325 mg Tablet 650 mg 2 tab(s), Oral, q4h acetaminophen 325 mg Tablet 650 mg 2 tab(s), Oral, q4h acetaminophen 650 mg Suppository 650 mg 1 supp, Rectal, q4h dextrose 50% Solution Disp syringe 50 mL 12.5 g 25 mL, IV Push, AsDirected glucagon recombinant 1 mg 1 mg 1 mL, Intramuscular, AsDirected ondansetron 2 mg/ 1 mL 2 mL INJ 4 mg 2 mL, IV Push, q4h Lab Results 11/17 07:02 WBC: 9.3 Hgb: 14.3 Hct: 41.8 Platelet: 176 Neutrophil %: 68.0 Glucose Level: 122 H Sodium Level: 141 Potassium Level: 4.2 BUN: 14.0 Creatinine Lvl (s): 0.71 11/16 07:14 WBC: 7.7 Hgb: 13.4 Hct: 38.8 L Platelet: 147 L Neutrophil %: 58.8 Glucose Level: 122 H Sodium Level: 141 Potassium Level: 4.2 BUN: 13.0 Creatinine Lvl (s): 0.71 EKG No qualifying data available. Assessment/Plan Acute ischemic stroke Dyslipidemia Hypertension History of ischemic stroke Impression/recommendations: Patient admitted as a transfer from [facility] due to acute neurological symptoms. Does have a prior history of facial droop due to previous ischemic stroke. Current workup during this hospitalization reveals acute ischemic infarct in left basal ganglia, without suggestion of multiple strokes. Telemetry reviewed, no arrhythmias noted. 2D TTE reviewed from this hospitalization, bubble study negative, structurally normal heart with preserved LV systolic function. Agree with hypercoagulable workup and obtaining lower extremity duplex, no evidence for VTE currently. SHRUTHI reviewed, no evidence for intracardiac thrombus, vegetations or any visual evidence for cardioembolic source. We recommend discharging patient on 30-day event monitor. Cardiology will sign off, thank you for allowing us to participate in the care of your patient. Please do not hesitate to reach out with any questions. Digitally Signed by ROSALBA HUITRON MD on 11/18/2023 01:16 PM [facility] [id number] Nurse Progress note ACNS charting reviewed, present for medication pass. Digitally Signed by Janis Valdez RN on 11/18/2023 02:34 PM [facility] [id number] Discharge summary Date of Service 11/18/2023 13:18:37 Discharge Diagnosis left basal ganglier stroke. was given fluids and permissive HTN stabilized plavix monotherapy statin 40mg high intensity statin SHRUTHI with no acute findings 30d event monitor DM2 Watch blood sugars closely. lantus, 15 units qhs. oral glipizde Plan DC to SNF/rehab Hospital Course 53-year-old male with medical history significant for CHF, hypertension, stroke. Patient presents to the hospital with right-sided facial droop right-sided weakness of the arm and leg. Patient had NIH of 5 on presentation. Patient did have CT of the head and CT angio of the head these were negativefor LVO. Patient was brought to the hospital for further stroke workup. Patient had MRI performed which showed right left basal ganglia stroke. Patient did have worsening symptomatology during hospital stay now is having right arm complete flaccidity and it has been better on initial presentation. Patient was recommended no acute intervention by neurology other than allowing permissive hypertension. Patient was recommended for only single antiplatelet therapy. Patient did have transesophageal echocardiogram performed which showed no source of embolization but was recommended for transesophageal echocardiogram to into significant risk of underlying atrial fibrillation. Patient also has had poor glucose control as an outpatient as of initiation on insulin therapy which has improved glucose.Transesophageal echocardiogram obtained showing no vegetation nor thrombus. Patient will have 30-day event monitor at discharge continues to work well with physical therapy. Patient stable ready for discharge with close outpatient follow-up. 11/17 patient today on day of discharge is doing well still having residual right-sided weakness. Allergies NKA Consults Consult to Diabetes Education (Diabetes Education Consult) - Ordered -- 11/14/23 12:44:00 EDT, Blood Glucose Monitoring, Once, here with stroke poor alc control Consult to Diabetes Education - Ordered -- 11/16/23 17:33:00 EDT, Blood Glucose Monitoring, Once Consult to Physician - Ordered -- 11/13/23 13:08:00 EDT, FEDERICO MULLEN MD, Routine, cva Consult to Physician - Ordered -- 11/15/23 10:32:00 EDT, PAPITO PADILLA MD, Routine, multiple recent strokes, SHRUTHI Imaging Results and Diagnostics XR Shoulder Minimum 2 Views Right Result Date: November 17, 2023 Verified By: SHAZIA SOLOMON, CHUCKIE Le CLINICAL STATEMENT: IMPRESSION: No acute fracture or dislocation. Mild degenerative changes CT Angiography Head w/ Contrast Result Date: November 16, 2023 Verified By: RENEA SHIELDS MD CLINICAL STATEMENT: IMPRESSION: 1. Indeterminate age occlusion of the proximal M1 right middle cerebralartery with collaterals opacifying the M2 through M4 branches..2. Mild to moderate focal stenosis within the proximal basilar artery.3. Moderate left ICA stenosis.4. Diffuse atherosclerotic disease throughout the left posterior cerebralartery.5. Moderate stenosis of the proximal P1 right posterior cerebral artery.Communication was initiated for the radiology call center by this radiologistthrough PACS at 11:37 a.m. on 11/16/2023with instructions to provide theresults of this examination to a licensed caregiver. CT Angiography Neck w/ Contrast Result Date: November 16, 2023 Verified By: RENEA SHIELDS MD CLINICAL STATEMENT: IMPRESSION: 1. No hemodynamically significant flow-limiting stenosis.2. Normal CTA of the neck.The estimate of the degree of stenosis included in this report is based onthe NASCET method for calculating stenosis, using the internal carotid arterydistal to the stenosis as the reference point. CT Head or Brain w/o Contrast Result Date: November 16, 2023 Verified By: RENEA SHIELDS MD CLINICAL STATEMENT: IMPRESSION: No acute intracranial abnormality identified. Unchanged early subacute lacunar infarct in the left basal ganglia. Parenchymal volume loss and chronic microvascular white matter ischemicdisease. I have personally reviewed the images of this examination and agree with theresident's findings and interpretation. CT Head or Brain w/o Contrast Result Date: November 15, 2023 Verified By: MIKEY LYN MD CLINICAL STATEMENT: IMPRESSION: Volume loss, small vessel ischemic changes and evolving right lacunar infarct MRI Brain w/o Contrast Result Date: November 14, 2023 Verified By: MIKEY LYN MD CLINICAL STATEMENT: IMPRESSION: Acute left basal ganglia lacunar infarct. Small vessel ischemic disease, significantly greater on the right. Physical Exam Vitals and Measurements T: 36.7 C (Oral) TMIN: 35.1 C (Oral) TMAX: 36.9 C (Oral) HR: 67 RR: 18 BP: 149/78 SpO2: 96% Weight Dosing Weight: 94 kg (11/13/23) Exam: HEENT: Occular ROM intact, No JVD, No carotid bruit CVS: regular rate and rhythm, no murmurs Lungs: clear to auscultation, good air entry Abdomen: soft, non distended, bowel sounds +, no tenderness Extremities: RUE weakness WEBSITE PROJECT MANAGER: Alert, No focal deficits identified. Skin: No visible rashes or Lesions Code Status Code Status - Ordered -- 11/13/23 13:09:00 EDT, Full Code, Constant Order Admission Date 11/13/23 Discharge Date 11/18/23 Patient Instructions stroke - plavix therapy, stop home aspirin 30 day event monitor to evaluate if there is a bad heart rhythm Heart ultrasounds were normal Medications New Prescription clopidogrel (Plavix 75 mg oral tablet)1 tab(s) by mouth once a day. insulin glargine (Lantus 100 units/mL10 ml vial solution)15 unit(s) Subcutaneous (INT) daily at bedtime. Changed rosuvastatin (rosuvastatin 20 mg oral tablet)2 tab(s) by mouth every day. sertraline (sertraline 50 mg oral tablet)1 tab(s) by mouth once a day. sertraline (sertraline 50 mg oral tablet)1 tab(s) by mouth once a day. Unchanged carvedilol (Coreg 6.25 mg oral tablet)1 tab(s) by mouth two (2) times a day. furosemide (furosemide 20 mg oral tablet)1 tab(s) by mouth once a day. glipiZIDE (glipiZIDE 10 mg oral tablet)1 tab(s) by mouth once a day. herbal/nutritional product (garlic oral capsule)1 cap by mouth every day. losartan (losartan 50 mg oral tablet)1 tab(s) by mouth every day. metFORMIN (metFORMIN 500 mg oral tablet (IR))1 tab(s) by mouth once a day. multivitamin (Multivitamin)1 tab(s) by mouth every day. omega-3 polyunsaturated fatty acids (Fish Oil 1000 mg oral capsule)1 cap by mouth once a day. Discontinued aspirin (aspirin 81 mg oral delayed release tablet)1 tab(s) by mouth every day. Follow Up Follow Up with [facility] When:Within 1-2 days Where:[address] [place] [address]- Additional Information: please call for apt Follow Up with MARTITA ERVIN MD, Internal Medicine When:Within 1-2 days Where:[address] [place] [id number]- Additional Information: please call for apt Follow Up Appointments No qualifying data available. Follow Up Labs/Studies Discharge Labs No Follow-up Labs Discharge Studies No Follow-up Studies Discharge Diet Transfer of Care Diet - Ordered -- Type of Diet: Regular Diet, 11/18/23 13:17:00 EDT Discharge Activity Transfer of Care Activity - Ordered -- Activity As Tolerated, 11/18/23 13:17:00 EDT Condition on Discharge stable Discharge Disposition rehab Time Spent >30 minutes Digitally Signed by BOBBI ALCAZAR MD on 11/18/2023 01:23 PM [facility] [id number] Cardiology Progress note Subjective No acute overnight events, patient underwent SHRUTHI and tolerated procedure well. Objective Vitals and Measurements T: 36.7 C (Oral) TMIN: 35.1 C (Oral) TMAX: 36.9 C (Oral) HR: 67 RR: 18 BP: 149/78 SpO2: 96% Intake and Output 7AM Yesterday to 7AM Today Intake and Output (Last 24 hours) Intake Oral Intake 700.00 Administration Information 700.00 Output Stool Count 1.00 Urine Count 3.00 Total Summary Total Intake 1400.00 Total Output 0.00 Fluid Balance 1400.00 Physical Exam General Appearance: NAD Head: NCAT EENT: no gross abnormalities Neck: no JVD appreciated Cardiac: NS1S2 Lungs: CTAB Abdomen: soft, NT/ND Musculoskeletal: ROM wnl Extremities: no pitting edema Neurological: Follows commands Skin: warm, dry Psychiatric: normal mentation Weight Dosing Weight: 94 kg (11/13/23) Medications Medications (18) Active Scheduled: (12) carvedilol 6.25 mg tablet 6.25 mg 1 tab(s), Oral, BID clopidogrel 75 mg Tablet 75 mg 1 tab(s), Oral, qDay enoxaparin 40 mg/ 0.4mL syringe 40 mg 0.4 mL, Subcutaneous, qDay gabapentin 300 mg Capsule 300 mg 1 cap(s), Oral, TID insulin glargine 15 unit(s) 0.15 mL, Subcutaneous (INT), qHS insulin lispro 100 units/mL Soln (3 mL) Give 0-5 units/dose, Subcutaneous, TIDAC losartan 50 mg tablet 50 mg 1 tab(s), Oral, Daily metformin 500 mg Tablet 500 mg 1 tab(s), Oral, qDay multivitamin tablet 1 tab(s), Oral, Daily [id number] ethyl esters 1000 mg capsule 1,000 mg 1 cap(s), Oral, qDay rosuvastatin 20 mg tablet 40 mg 2 tab(s), Oral, Daily sertraline 50 mg tablet 50 mg 1 tab(s), Oral, qDay Continuous: (0) PRN: (6) acetaminophen 325 mg Tablet 650 mg 2 tab(s), Oral, q4h acetaminophen 325 mg Tablet 650 mg 2 tab(s), Oral, q4h acetaminophen 650 mg Suppository 650 mg 1 supp, Rectal, q4h dextrose 50% Solution Disp syringe 50 mL 12.5 g 25 mL, IV Push, AsDirected glucagon recombinant 1 mg 1 mg 1 mL, Intramuscular, AsDirected ondansetron 2 mg/ 1 mL 2 mL INJ 4 mg 2 mL, IV Push, q4h Lab Results 11/17 07:02 WBC: 9.3 Hgb: 14.3 Hct: 41.8 Platelet: 176 Neutrophil %: 68.0 Glucose Level: 122 H Sodium Level: 141 Potassium Level: 4.2 BUN: 14.0 Creatinine Lvl (s): 0.71 11/16 07:14 WBC: 7.7 Hgb: 13.4 Hct: 38.8 L Platelet: 147 L Neutrophil %: 58.8 Glucose Level: 122 H Sodium Level: 141 Potassium Level: 4.2 BUN: 13.0 Creatinine Lvl (s): 0.71 EKG No qualifying data available. Assessment/Plan Acute ischemic stroke Dyslipidemia Hypertension History of ischemic stroke Impression/recommendations: Patient admitted as a transfer from [facility] due to acute neurological symptoms. Does have a prior history of facial droop due to previous ischemic stroke. Current workup during this hospitalization reveals acute ischemic infarct in left basal ganglia, without suggestion of multiple strokes. Telemetry reviewed, no arrhythmias noted. 2D TTE reviewed from this hospitalization, bubble study negative, structurally normal heart with preserved LV systolic function. Agree with hypercoagulable workup and obtaining lower extremity duplex, no evidence for VTE currently. SHRUTHI reviewed, no evidence for intracardiac thrombus, vegetations or any visual evidence for cardioembolic source. We recommend discharging patient on 30-day event monitor. Cardiology will sign off, thank you for allowing us to participate in the care of your patient. Please do not hesitate to reach out with any questions. Digitally Signed by ROSALBA HUITRON MD on 11/18/2023 01:16 PM [facility] [id number] Note* Exam Date Time Procedure Performing Provider Status 11/18/23 12:27 PM Transesophageal Echo cardiogram - CV Auth (Verified) [facility] 05-29-2024 Cardiology Consult note Reason for Consultation SHRUTHI History of Present Illness 53-year-old male with history of hypertension, previous stroke with left-sided facial droop, hyperlipidemia, depression presents due to right-sided weakness and slurred speech that started 2 days prior to arrival to [facility]. He is currently encephalopathic and unable to divulge full history andinterview. Currently denies chest pain or dyspnea Review of Systems Constitutional: no general complaints/unintentional weight loss and weight gain Eyes: no visual disturbances Ears, Nose, Mouth & Throat: Denies sore throat Cardiovascular: denies chest pain Respiratory: denies dyspnea Gastrointestinal: denies abdominal pain, hematochezia/melena Genitourinary: denies dysuria/hematuria Musculoskeletal: denies arthralgias Skin: denies easy bruising Neurological: denies weakness Psychiatric: denies depressed mood Endocrine: denies polyuria/cold or heat intolerance Hematologic/Lymphatic: denies bleeding issues Allergic/Immunologic: denies allergies Physical Exam Vitals and Measurements T: 36.6 C (Oral) TMIN: 36.3 C (Oral) TMAX: 36.8 C (Oral) HR: 67 (Monitored) RR: 18 BP: 176/87 SpO2: 96% Weight Dosing Weight: 94 kg (11/13/23) General Appearance: NAD Head: NCAT EENT: no gross abnormalities Neck: no JVD appreciated Cardiac: NS1S2 Lungs: CTAB Abdomen: soft, NT/ND Musculoskeletal: ROM wnl Extremities: no pitting edema Neurological: Facial droop, follows commands Skin: warm, dry Psychiatric: nabormal mentation Lab Results 11/14 06:40 Glucose Level: 154 H Sodium Level: 143 Potassium Level: 4.1 BUN: 27.0 H Creatinine Lvl (s): 0.84 EKG EC11/16/23: SINUS RHYTHM LEFT AXIS DEVIATION Electronic Signature: ELVIS SALAZAR MD 11/16/2023 09:12:57 Assessment/Plan Acute ischemic stroke Dyslipidemia Hypertension History of ischemic stroke Impression/recommendations: Patient admitted as a transfer from [facility] due to acute neurological symptoms. Does have a prior history of facial droop due to previous ischemic stroke. Current workup during this hospitalization reveals acute ischemic infarct in left basal ganglia, without suggestion of multiple strokes. Telemetry reviewed, no arrhythmias noted. 2D TTE reviewed from this hospitalization, bubble study negative, structurally normal heart with preserved LV systolic function. Currently, there is no indication for SHRUTHI at this time given evidence for 1 acute ischemic infarct,however, given neurologists' concerns for cardioembolic phenomenon, we will proceed. Continue to monitor on telemetry, permissive hypertension per neurology. Agree with hypercoagulable workup and obtaining lower extremity duplex. Procedure/Surgical History No qualifying data available. Medications Inpatient Coreg, 6.25 mg= 1 tab(s), Oral, BID D5W 1,000 mL, 1000 mL, Intravenous Dextrose, 12.5 gram(s)= 25 mL, IV Push, AsDirected, PRN Fish Oil 1000 mg oral capsule, 1000 mg= 1 cap(s), Oral, qDay GlucaGen, 1 mg= 1 mL, Intramuscular, AsDirected, PRN HumaLOG 100 units/mL subcutaneous solution, Give 0-5 units/dose, Subcutaneous, TIDAC losartan, 50 mg= 1 tab(s), Oral, Daily Lovenox, 40 mg= 0.4 mL, Subcutaneous, qDay LR 1,000 mL, 1000 mL, Intravenous metFORMIN 500 mg oral tablet (IR), 500 mg= 1 tab(s), Oral, qDay Multivitamin, 1 tab(s), Oral, Daily Plavix, 75 mg= 1 tab(s), Oral, qDay rosuvastatin, 40 mg= 2 tab(s), Oral, Daily sertraline, 50 mg= 1 tab(s), Oral, qDay Tylenol, 650 mg= 2 tab(s), Oral, q4h, PRN Tylenol, 650 mg= 1 supp, Rectal, q4h, PRN Tylenol, 650 mg= 2 tab(s), Oral, q4h, PRN Zofran, 4 mg= 2 mL, IV Push, q4h, PRN Home aspirin 81 mg oral delayed release tablet, 81 mg= 1 tab(s), Oral, Daily Coreg 6.25 mg oral tablet, 6.25 mg= 1 tab(s), Oral, BID Fish Oil 1000 mg oral capsule, 1000 mg= 1 cap(s), Oral, qDay furosemide 20 mg oral tablet, 20 mg= 1 tab(s), Oral, qDay garlic oral capsule, 1 cap(s), Oral, Daily glipiZIDE 10 mg oral tablet, 10 mg= 1 tab(s), Oral, qDay losartan 50 mg oral tablet, 50 mg= 1 tab(s), Oral, Daily metFORMIN 500 mg oral tablet (IR), 500 mg= 1 tab(s), Oral, qDay Multivitamin, 1 tab(s), Oral, Daily rosuvastatin 20 mg oral tablet, 20 mg= 1 tab(s), Oral, Daily sertraline 50 mg oral tablet, 50 mg= 1 tab(s), Oral, qDay Allergies NKA Immunizations No qualifying data available. Digitally Signed by ROSALBA HUITRON MD on 11/16/2023 12:38 PM Digitally Signed by ROSALBA HUITRON MD on 11/16/2023 03:00 PM [facility] [id number] Nurse Progress note I read and agree with Ruperto RODRIGUEZ student patient assessment and vital signs documentation, Present for all patient care at 1335 and 1340 Digitally Signed by Deb Sandy Director Of Field Coordination on 11/17/2023 02:59 PM [facility] [id number] Note ORIGINAL EXAMINATION: 3 XRAY VIEWS OF THE RIGHT SHOULDER11/17/2023 2:02 pm COMPARISON: None. HISTORY: ORDERING SYSTEM PROVIDED HISTORY: Reason for Exam: pain, FINDINGS: No fracture or dislocation is identified. There are no abnormal periarticular calcifications. Mild degenerative changes seen of the right acromioclavicular joint. The included thoracic structures are normal. IMPRESSION: No acute fracture or dislocation. Mild degenerative changes Interpreted by: Chuckie Samuels MD Preliminary Report By: Chuckie Samuels MD Electronically signed By Chuckie Samuels MD Dictated Date: 11/17/2023 2:10:26 PM Prelim Date: 11/17/2023 2:11:35 PM Sign Date: 11/17/2023 2:11:35 PM Ordering Provider: [facility]05-29-2024 Note Date of Service 11/17/2023 12:54:35 Chief Complaint R sided weakness Subjective 53-year-old male with medical history significant for CHF, hypertension, stroke. Patient presents to the hospital with right-sided facial droop right-sided weakness of the arm and leg. Patient had NIH of 5 on presentation. Patient did have CT of the head and CT angio of the head these were negativefor LVO. Patient was brought to the hospital for further stroke workup. Patient had MRI performed which showed right left basal ganglia stroke. Patient did have worsening symptomatology during hospital stay now is having right arm complete flaccidity and it has been better on initial presentation. Patient was recommended no acute intervention by neurology other than allowing permissive hypertension. Patient was recommended for only single antiplatelet therapy. Patient did have transesophageal echocardiogram performed which showed no source of embolization but was recommended for transesophageal echocardiogram to into significant risk of underlying atrial fibrillation. Patient also has had poor glucose control as an outpatient as of initiation on insulin therapy which has improved glucose.Patient approved for rehab currently awaiting transesophageal echocardiogram before transition. Patient seen on 11/16 denies any acute complaints at this time no fevers chills nausea vomiting diarrhea constipation chest pain. Patient still having significant right upper extremity right lower extremity weakness patient is still having some right-sided facial droop along with slurred speech. Patient has no issues with word finding. Objective Vitals and Measurements T: 36.5 C (Oral) TMIN: 36.4 C (Oral) TMAX: 36.6 C (Oral) HR: 76 (Monitored) RR: 16 BP: 142/82 SpO2:98% Intake and Output 7AM Yesterday to 7AM Today Intake and Output (Last 24 hours) Intake Oral Intake 540.00 Administration Information 548.00 Output Urine Voided 200.00 Stool Count 0.00 Urine Count 2.00 Total Summary Total Intake 1088.00 Total Output 200.00 Fluid Balance 888.00 Physical Exam Exam: HEENT: Ocular ROM intact, No JVD, No carotid bruit CVS: regular rate and rhythm, no murmurs Lungs: clear to auscultation, good air entry Abdomen: soft, non distended, bowel sounds +, no tenderness Extremities: No edema, No cyanosis or clubbing 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 R facial droop. Skin: No visible rashes or Lesions Weight Dosing Weight: 94 kg (11/13/23) Medications Medications (18) Active Scheduled: (12) carvedilol 6.25 mg tablet 6.25 mg 1 tab(s), Oral, BID clopidogrel 75 mg Tablet 75 mg 1 tab(s), Oral, qDay enoxaparin 40 mg/ 0.4mL syringe 40 mg 0.4 mL, Subcutaneous, qDay gabapentin 300 mg Capsule 300 mg 1 cap(s), Oral, TID insulin glargine 15 unit(s) 0.15 mL, Subcutaneous (INT), qHS insulin lispro 100 units/mL Soln (3 mL) Give 0-5 units/dose, Subcutaneous, TIDAC losartan 50 mg tablet 50 mg 1 tab(s), Oral, Daily metformin 500 mg Tablet 500 mg 1 tab(s), Oral, qDay multivitamin tablet 1 tab(s), Oral, Daily [id number] ethyl esters 1000 mg capsule 1,000 mg 1 cap(s), Oral, qDay rosuvastatin 20 mg tablet 40 mg 2 tab(s), Oral, Daily sertraline 50 mg tablet 50 mg 1 tab(s), Oral, qDay Continuous: (0) PRN: (6) acetaminophen 325 mg Tablet 650 mg 2 tab(s), Oral, q4h acetaminophen 325 mg Tablet 650 mg 2 tab(s), Oral, q4h acetaminophen 650 mg Suppository 650 mg 1 supp, Rectal, q4h dextrose 50% Solution Disp syringe 50 mL 12.5 g 25 mL, IV Push, AsDirected glucagon recombinant 1 mg 1 mg 1 mL, Intramuscular, AsDirected ondansetron 2 mg/ 1 mL 2 mL INJ 4 mg 2 mL, IV Push, q4h Lab Results 11/16 07:14 WBC: 7.7 Hgb: 13.4 Hct: 38.8 L Platelet: 147 L Neutrophil %: 58.8 Glucose Level: 122 H Sodium Level: 141 Potassium Level: 4.2 BUN: 13.0 Creatinine Lvl (s): 0.71 EKG No qualifying data available. Assessment/Plan left basal ganglier stroke. was given fluids and permissive HTN plavix statin SHRUTHI planned 11/17 if neg will need 30d monitor DM2 Watch blood sugars closely. lantus, 15 units qhs. Continue his po meds and sliding scale. Plan DC to SNF/rehab Digitally Signed by BOBBI ALCAZAR MD on 11/17/2023 01:03 PM [facility] [id number] Note* Exam Date Time Procedure Performing Provider Status 11/17/23 9:32 AM VL Venous US/Doppler Both Legs(for DVT) Auth (Verified) [facility] 05-28-2024 Note Date of Service 11/16/2023 Chief Complaint 53-year-old male with a history of CHF, hypertension, previous stroke presents with right-sided weakness, right facial droop, and slurred speech. Patient also states he had similar symptoms a week ago that resolved. Initial NIHSS was 5. CT of the head and CT angiogram of head and neck were negativefor any acute findings or large vessel occlusions. Patient transferred for MRI and neurologic workup. Here patient seen by neurology and MRI done did show a left basal ganglier stroke. However over thepast 2 days patient has had an acute worsening of his right-sided weakness and now right arm below the level of the shoulder is completely flaccid. Right facial droop worsened and patient's speech initially worsened but today seems better. No intervention. At this time plan is Plavix only and not aspirin. Neurology felt strongly that given an event followed by a second event so closely that this might be embolic especially given patient's young age. TTE was ordered with bubble study but this did not show any source for embolism. Patient has not had any atrial fibrillation on telemetry to this time. Plan is SHRUTHI to completely rule out cardiac source of embolization. If negative patient will leave on Plavix and statin. Patient with somewhat poor sugar control with a hemoglobin A1c of 9.2. He states he has been on insulin in the past but was told by his physician to stop it as his hemoglobin A1c was improving. Will restart patient on nighttime Lantus tonight. Patient does not have insurance and was seen by social work for HCAP, he was approved for this and a referral was made to [place] for acute rehab after discharge. Subjective Patient now with completely flaccid right arm below the shoulder. Right facial droop is about the same but speech seems more clear to me this morning. Objective Vitals and Measurements T: 36.6 C (Oral) TMIN: 36.3 C (Oral) TMAX: 36.7 C (Oral) HR: 75 RR: 18 BP: 168/87 SpO2: 96% Intake and Output 7AM Yesterday to 7AM Today Intake and Output (Last 24 hours) Intake Oral Intake 790.00 Administration Information 1375.00 Output Urine Voided 500.00 Stool Count 0.00 Urine Count 4.00 Total Summary Total Intake 2165.00 Total Output 500.00 Fluid Balance 1665.00 Physical Exam Exam: Awake and alert, in no distress, dysarthric but not aphasic CVS: regular, no murmur Lungs: clear to auscultation Abdomen: soft, non distended, no tenderness Extremities: No edema Neuro: Flaccid right arm. Increased right facial droop, dysarthria Weight Dosing Weight: 94 kg (11/13/23) Medications Medications (18) Active Scheduled: (10) carvedilol 6.25 mg tablet 6.25 mg 1 tab(s), Oral, BID clopidogrel 75 mg Tablet 75 mg 1 tab(s), Oral, qDay enoxaparin 40 mg/ 0.4mL syringe 40 mg 0.4 mL, Subcutaneous, qDay insulin lispro 100 units/mL Soln (3 mL) Give 0-5 units/dose, Subcutaneous, TIDAC losartan 50 mg tablet 50 mg 1 tab(s), Oral, Daily metformin 500 mg Tablet 500 mg 1 tab(s), Oral, qDay multivitamin tablet 1 tab(s), Oral, Daily [id number]-[id number] ethyl esters 1000 mg capsule 1,000 mg 1 cap(s), Oral, qDay rosuvastatin 20 mg tablet 40 mg 2 tab(s), Oral, Daily sertraline 50 mg tablet 50 mg 1 tab(s), Oral, qDay Continuous: (2) Dextrose 5% in Water 1,000 mL 1,000 mL, Intravenous Lactated Ringers 1,000 mL 1,000 mL, Intravenous, 100 mL/hr PRN: (6) acetaminophen 325 mg Tablet 650 mg 2 tab(s), Oral, q4h acetaminophen 325 mg Tablet 650 mg 2 tab(s), Oral, q4h acetaminophen 650 mg Suppository 650 mg 1 supp, Rectal, q4h dextrose 50% Solution Disp syringe 50 mL 12.5 g 25 mL, IV Push, AsDirected glucagon recombinant 1 mg 1 mg 1 mL, Intramuscular, AsDirected ondansetron 2 mg/ 1 mL 2 mL INJ 4 mg 2 mL, IV Push, q4h Lab Results No 36 Hour Lab Data EKG EKG - Completed -- 11/16/23 4:50:00 EDT Assessment/Plan Seen by neurology, greatly appreciate their help. MRI shows left basal ganglier stroke. Patient with worsening symptoms yesterday and CT scan shows stroke may be evolving. Giving patient fluid to tryto keep a blood pressure in case this is a relative hypotension. There is some cause to have concerned about a possible embolic source. TTE ordered with bubble study, negative for shunt and normal EF. Does not seem to show an embolic source so SHRUTHI has been orderedand patient has been seen by cardiology and SHRUTHI to be done tomorrow morning. If no cause for embolic source, patient will likely just need 30-day event monitor to rule out atrial fibrillation. It should be noted that MRI does not show multiple strokes but only the single left basal ganglion stroke. Plan is platelet monotherapy and aspirin has been held. Patient now with intact swallow for pills. Continue high-dose statin. Watch blood sugars closely. Hemoglobin A1c 9.2. Sugar control not great. At this time will start lantus, 15 units tonight. Continue his po meds and sliding scale. Therapy evaluation, patient is a candidate for inpatient rehab. Anticipated Date of Discharge next 48 hours Digitally Signed by NACHO NELSON MD on 11/16/2023 08:14 PM [facility] [id number] Cardiology Consult note Reason for Consultation SHRUTHI History of Present Illness 53-year-old male with history of hypertension, previous stroke with left-sided facial droop, hyperlipidemia, depression presents due to right-sided weakness and slurred speech that started 2 days prior to arrival to [facility]. He is currently encephalopathic and unable to divulge full history andinterview. Currently denies chest pain or dyspnea Review of Systems Constitutional: no general complaints/unintentional weight loss and weight gain Eyes: no visual disturbances Ears, Nose, Mouth & Throat: Denies sore throat Cardiovascular: denies chest pain Respiratory: denies dyspnea Gastrointestinal: denies abdominal pain, hematochezia/melena Genitourinary: denies dysuria/hematuria Musculoskeletal: denies arthralgias Skin: denies easy bruising Neurological: denies weakness Psychiatric: denies depressed mood Endocrine: denies polyuria/cold or heat intolerance Hematologic/Lymphatic: denies bleeding issues Allergic/Immunologic: denies allergies Physical Exam Vitals and Measurements T: 36.6 C (Oral) TMIN: 36.3 C (Oral) TMAX: 36.8 C (Oral) HR: 67 (Monitored) RR: 18 BP: 176/87 SpO2:96% Weight Dosing Weight: 94 kg (11/13/23) General Appearance: NAD Head: NCAT EENT: no gross abnormalities Neck: no JVD appreciated Cardiac: NS1S2 Lungs: CTAB Abdomen: soft, NT/ND Musculoskeletal: ROM wnl Extremities: no pitting edema Neurological: Facial droop, follows commands Skin: warm, dry Psychiatric: nabormal mentation Lab Results 11/14 06:40 Glucose Level: 154 H Sodium Level: 143 Potassium Level: 4.1 BUN: 27.0 H Creatinine Lvl (s): 0.84 EKG EC11/16/23: SINUS RHYTHM LEFT AXIS DEVIATION Electronic Signature: ELVIS SALAZAR MD 11/16/2023 09:12:57 Assessment/Plan Acute ischemic stroke Dyslipidemia Hypertension History of ischemic stroke Impression/recommendations: Patient admitted as a transfer from [facility] due to acute neurological symptoms. Does have a prior history of facial droop due to previous ischemic stroke. Current workup during this hospitalization reveals acute ischemic infarct in left basal ganglia, without suggestion of multiple strokes. Telemetry reviewed, no arrhythmias noted. 2D TTE reviewed from this hospitalization, bubble study negative, structurally normal heart with preserved LV systolic function. Currently, there is no indication for SHRUTHI at this time given evidence for 1 acute ischemic infarct,however, given neurologists' concerns for cardioembolic phenomenon, we will proceed. Continue to monitor on telemetry, permissive hypertension per neurology. Agree with hypercoagulable workup and obtaining lower extremity duplex. Procedure/Surgical History No qualifying data available. Medications Inpatient Coreg, 6.25 mg= 1 tab(s), Oral, BID D5W 1,000 mL, 1000 mL, Intravenous Dextrose, 12.5 gram(s)= 25 mL, IV Push, AsDirected, PRN Fish Oil 1000 mg oral capsule, 1000 mg= 1 cap(s), Oral, qDay GlucaGen, 1 mg= 1 mL, Intramuscular, AsDirected, PRN HumaLOG 100 units/mL subcutaneous solution, Give 0-5 units/dose, Subcutaneous, TIDAC losartan, 50 mg= 1 tab(s), Oral, Daily Lovenox, 40 mg= 0.4 mL, Subcutaneous, qDay LR 1,000 mL, 1000 mL, Intravenous metFORMIN 500 mg oral tablet (IR), 500 mg= 1 tab(s), Oral, qDay Multivitamin, 1 tab(s), Oral, Daily Plavix, 75 mg= 1 tab(s), Oral, qDay rosuvastatin, 40 mg= 2 tab(s), Oral, Daily sertraline, 50 mg= 1 tab(s), Oral, qDay Tylenol, 650 mg= 2 tab(s), Oral, q4h, PRN Tylenol, 650 mg= 1 supp, Rectal, q4h, PRN Tylenol, 650 mg= 2 tab(s), Oral, q4h, PRN Zofran, 4 mg= 2 mL, IV Push, q4h, PRN Home aspirin 81 mg oral delayed release tablet, 81 mg= 1 tab(s), Oral, Daily Coreg 6.25 mg oral tablet, 6.25 mg= 1 tab(s), Oral, BID Fish Oil 1000 mg oral capsule, 1000 mg= 1 cap(s), Oral, qDay furosemide 20 mg oral tablet, 20 mg= 1 tab(s), Oral, qDay garlic oral capsule, 1 cap(s), Oral, Daily glipiZIDE 10 mg oral tablet, 10 mg= 1 tab(s), Oral, qDay losartan 50 mg oral tablet, 50 mg= 1 tab(s), Oral, Daily metFORMIN 500 mg oral tablet (IR), 500 mg= 1 tab(s), Oral, qDay Multivitamin, 1 tab(s), Oral, Daily rosuvastatin 20 mg oral tablet, 20 mg= 1 tab(s), Oral, Daily sertraline 50 mg oral tablet, 50 mg= 1 tab(s), Oral, qDay Allergies NKA Immunizations No qualifying data available. Digitally Signed by ROSALBA HUITRON MD on 11/16/2023 12:38 PM Digitally Signed by ROSALBA HUITRON MD on 11/16/2023 03:00 PM [facility] [id number] Neurology Progress note Date of Service 11/16/23 Chief Complaint Worsening right-sided weakness Subjective Patient seen and examined with son at bedside. Patient states that yesterday afternoon he began experiencing worsening weakness of his right side further, states he was unable to lay flat in bed and got up to his chair twice yesterday and is currently sitting up in his chair while present. Around 5AM received as needed hydralazine for systolic blood pressure greater than 180. He appears alert, orientated and following commands but appears to have worsened weakness on the right side, right arm flaccid and right lower extremity minimal movement and foot 1/5. Speech remains dysarthric but slightly improved compared to yesterday, he continues to display a rate face droop, states his swallowingis unchanged but still not normal, decreased sensation of right side continues to be reported. He denies any headache, lightheadedness, dizziness, vision disturbance. Objective Vitals and Measurements T: 36.6 C (Oral) TMIN: 36.3 C (Oral) TMAX: 36.8 C (Oral) HR: 67 (Monitored) RR: 18 BP: 176/87 SpO2:96% Intake and Output 7AM Yesterday to 7AM Today Intake and Output (Last 24 hours) Intake Oral Intake 510.00 Administration Information 827.00 Output Urine Voided 500.00 Stool Count 1.00 Urine Count 6.00 Total Summary Total Intake 1337.00 Total Output 500.00 Fluid Balance 837.00 Physical Exam Mental Status: Alert, follows commands, interactive Orientation: oriented to person, hospital, and month, situation but forgetful Language: normal fluency, normal comprehension Speech: dysarthric (motor) (moderate) Cranial Nerves: Pupils: 2mm -> 2mm bilaterally Visual Nguyễn: full to confrontationright eye; 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 No sustained nystagmus CN V: normal light touch and temp sensation in V1, V2, V3, bilaterally. CN VII: Notable right face droop CN VIII: auditory acuity intact to bedside testing Sensation: Light touch: reduced in RUE/RLE Motor: Involuntary movements: none Strength: LUE: 5/5 RUE: 1/5 proximal 0/5 distally can shrug his shoulder LLE: 5/5 RLE: 1/5 proximal and 1/5 distally can move toes only Coordination: Intact on left; unable to assess on right for weakness Weight Dosing Weight: 94 kg (05/25/24) Medications Medications (18) Active Scheduled: (10) carvedilol 6.25 mg tablet 6.25 mg 1 tab(s), Oral, BID clopidogrel 75 mg Tablet 75 mg 1 tab(s), Oral, qDay enoxaparin 40 mg/ 0.4mL syringe 40 mg 0.4 mL, Subcutaneous, qDay insulin lispro 100 units/mL Soln (3 mL) Give 0-5 units/dose, Subcutaneous, TIDAC losartan 50 mg tablet 50 mg 1 tab(s), Oral, Daily metformin 500 mg Tablet 500 mg 1 tab(s), Oral, qDay multivitamin tablet 1 tab(s), Oral, Daily [id number] ethyl esters 1000 mg capsule 1,000 mg 1 cap(s), Oral, qDay rosuvastatin 20 mg tablet 40 mg 2 tab(s), Oral, Daily sertraline 50 mg tablet 50 mg 1 tab(s), Oral, qDay Continuous: (2) Dextrose 5% in Water 1,000 mL 1,000 mL, Intravenous Lactated Ringers 1,000 mL 1,000 mL, Intravenous, 100 mL/hr PRN: (6) acetaminophen 325 mg Tablet 650 mg 2 tab(s), Oral, q4h acetaminophen 325 mg Tablet 650 mg 2 tab(s), Oral, q4h acetaminophen 650 mg Suppository 650 mg 1 supp, Rectal, q4h dextrose 50% Solution Disp syringe 50 mL 12.5 g 25 mL, IV Push, AsDirected glucagon recombinant 1 mg 1 mg 1 mL, Intramuscular, AsDirected ondansetron 2 mg/ 1 mL 2 mL INJ 4 mg 2 mL, IV Push, q4h Lab Results 11/14 06:40 Glucose Level: 154 H Sodium Level: 143 Potassium Level: 4.1 BUN: 27.0 H Creatinine Lvl (s): 0.84 Imaging Results and Diagnostics CT Angiography Head w/ Contrast Result Date: November 16, 2023 Verified By: RENEA SHIELDS MD CLINICAL STATEMENT: IMPRESSION: 1. Indeterminate age occlusion of the proximal M1 right middle cerebralartery with collaterals opacifying the M2 through M4 branches..2. Mild to moderate focal stenosis within the proximal basilar artery.3. Moderate left ICA stenosis.4. Diffuse atherosclerotic disease throughout the left posterior cerebralartery.5. Moderate stenosis of the proximal P1 right posterior cerebral artery.Communication was initiated for the radiology call center by this radiologistthrough PACS at 11:37 a.m. on 11/16/2023with instructions to provide theresults of this examination to a licensed caregiver. CT Angiography Neck w/ Contrast Result Date: November 16, 2023 Verified By: RENEA SHIELDS MD CLINICAL STATEMENT: IMPRESSION: 1. No hemodynamically significant flow-limiting stenosis.2. Normal CTA of the neck.The estimate of the degree of stenosis included in this report is based onthe NASCET method for calculating stenosis, using the internal carotid arterydistal to the stenosis as the reference point. CT Head or Brain w/o Contrast Result Date: November 16, 2023 Verified By: RENEA SHIELDS MD CLINICAL STATEMENT: IMPRESSION: No acute intracranial abnormality identified. Unchanged early subacute lacunar infarct in the left basal ganglia. Parenchymal volume loss and chronic microvascular white matter ischemicdisease. I have personally reviewed the images of this examination and agree with theresident's findings and interpretation. CT Head or Brain w/o Contrast Result Date: November 15, 2023 Verified By: MIKEY LYN MD CLINICAL STATEMENT: IMPRESSION: Volume loss, small vessel ischemic changes and evolving right lacunar infarct MRI Brain w/o Contrast Result Date: November 14, 2023 Verified By: MIKEY LYN MD CLINICAL STATEMENT: IMPRESSION: Acute left basal ganglia lacunar infarct. Small vessel ischemic disease, significantly greater on the right. Assessment/Plan IMPRESSION Acute stroke Recent stroke Dysphagia Right sided weakness H/o TBI Presentation likely due to long-term vascular risk factors. There are concerns for recurrent cardioembolic etiology specifically. Recommend further stroke workup given his stroke/recurrent strokes close/age etc. Today unfortunately patient appears right-sided weakness appears worse compared to when I last seenhim, recommend to continue IV fluids, patient educated/family that patient must lay in bed with head of bed flat for better perfusion of his stroke, avoid hypotension or giving antihypertensives at this time this was discussed with RN at bedside/hospitalist. Discontinued prn hydralazine; allow permissive hypertension. Will obtain stat CT head without contrast/CTAs of head/neck this am. PLAN: -Repeat CT head w/o contrast ordered STAT given profound change in NIH/R sided weakness, reviewed showing no acute findings stable. -Ordered CTA H/N STAT, CTA neck unrevealing. CTA head showing what appears to be a chronic M1 occlusion with collaterals opacifying the M2 through M4 branches, noted mild to moderate focal stenosis within the proximal basilar artery, moderate left ICA stenosis, diffuse atherosclerotic disease throughout the left posterior cerebral artery, moderate stenosis of the proximal P1 right posterior cerebral artery. -CT head on 11/14 showing evolving left BG infarct -MRI of the brain ordered with and without contrast, reviewed showing acute left basal ganglia lacunar infarct. Small vessel ischemic disease, significantly greater on the right. -CTA H/N report documentation from [facility] reviewed on chart from outside hospital was read unrevealing. -TTE ordered EF 55 to 60%, no noted PFO; SHRUTHI ordered given normal TTE and given he potentially had two separate embolic events within a week. Cardiology following, planning to attempt to fit pt in schedule tomm since are full today. -Added lower Doppler's to rule out DVT given recurrent stroke and RLE pain complaint, pending -Labs reviewed today. Hemoglobin A1c 9.2%, cholesterol 162, LDL 92. Lfts WNL. Homocysteine 12.5. Hypercoagulable labs pending, these will likely need to be followed up with [facility] in 1 week on an outpatient basis/PCP. Recommend consultation to diabetes management for better A1c control/better diabetes control for stroke prevention but will defer to primary team. -Please avoid narcotics would recommend Tylenol for pain General guidelines for long-term vascular risk factor modification in the setting of a stroke: SBP goal: < 130 as tolerated Goal Total cholesterol: < LDL: 70 HbA1c: < 7u -At baseline pt was on ASA, recommended to escalate to Plavix monotherapy only, discontinue ASA. Aswould hold DAPT given he has more than 3 points on the NIHSS that are new, implying risk of hemorrhage outweighs benefit. -Continue on high dose statin. Will need a CardioNet monitor at discharge if no indication for anti-coagulation is found during admission. -Provided stroke education -Discussed plan with son at bedside, understood plan. Answered all questions. -GI/DVT prophylaxis per primary team -PT/OT/ST per recommendations -Fall precautions -Further medical management per medical team -Patient counseled the risks and health hazards of smoking, excessive alcohol intake, marijuana/cocaine/drug abuse and patient counseled not to smoke cigarettes, drink excessive alcohol as well as not to smoke marijuana. Patient understands the same. -Follow up with Neurology in 1 weeks as outpatient Discussed plan with collaborating physician who agrees with plan Independently spent 50 minutes with patient Will tentatively follow doppler report/SHRUTHI/labs but sign off. Please call with questions or concerns if any. Thank you for allowing us to participate in patients care and management. All questions were answered Probable stroke etiology/risk factors and long-term prevention were discussed. Common and serious side effects of preventative medications were discussed, including risks of bleeding with antiplatelet agents. Digitally Signed by ELAYNE GOMEZ on 11/16/2023 11:47 AM Digitally Signed by ELAYNE GOMEZ on 11/16/2023 12:38 PM [id number] Note ORIGINAL EXAMINATION: CTA neck: TECHNIQUE: Contiguous spiral images were obtained in the axial plane, following the administration of intravenous contrast using CT angiographic protocol. Sagittal and coronal images were reconstructed from the axial plane acquisition. Additional 3D reformatted MIP reconstructions were presented to aid in the interpretation of this study. Images were obtained from the skull base through the upper lobes. Contrast: 110 mL Isovue 370 One or more the following dose reduction techniques were used:automated exposure control, adjustment of the mA and/or kV according to patient size, or use of iterative reconstruction technique. Additional comment: None. COMPARISON: Correlated with same day CTA head HISTORY: ORDERING SYSTEM PROVIDED HISTORY: Reason for Exam: hx of stroke. new right sided weakness and facial droop Worsen R side weakness FINDINGS: Neck Angiogram Aorta: No hemodynamically significant stenosis. Patent brachiocephalic, left common carotid and left subclavian arteries. Right common carotid artery: No hemodynamically significant flow-limiting stenosis. Right internal carotid artery: No hemodynamically significant flow-limiting stenosis. Right external carotid artery: No hemodynamically significant flow-limiting stenosis. Left common carotid artery: No hemodynamically significant flow-limiting stenosis. Left internal carotid artery: No hemodynamically significant flow-limiting stenosis. Left external carotid artery: No hemodynamically significant flow-limiting stenosis. V1/V2 vertebral arteries: No hemodynamically significant flow-limiting stenosis. Vertebral artery dominance: Right. Neck Soft tissues: Normal. Bones: No acute osseous pathology. Straightening of the normal cervical lordosis. Lung apices: Clear. IMPRESSION: 1. No hemodynamically significant flow-limiting stenosis. 2. Normal CTA of the neck. The estimate of the degree of stenosis included in this report is based on the NASCET method for calculating stenosis, using the internal carotid artery distal to the stenosis as the reference point. Interpreted by: Renea Shields MD Preliminary Report By: Renea Shields MD Electronically signed By Renea Shields MD Dictated Date: 11/16/2023 11:59:48 AM Prelim Date: 11/16/2023 12:02:17 PM Sign Date: 11/16/2023 12:02:17 PM Ordering Provider: [facility]05-28-2024 Note ORIGINAL EXAMINATION: CT Angiogram of the head with intravenous contrast TECHNIQUE: CT angiogram of the head was obtained. Sagittal and coronal reformations and maximum intensity projection reconstructions were provided. Images were obtained before and after the uneventful administration of 110 mL Isovue 370. 3D reformatted MIP images were provided One or more of the following dose reduction techniques were used: automated exposure control, adjustment of the mA and/or kV according to patient size, or use of iterative reconstruction technique. DICOM images are available. COMPARISON: MRI brain 11/14/[address] head HISTORY: ORDERING SYSTEM PROVIDED HISTORY: Reason for Exam: History of stroke. New right sided weakness and facial droop R side weakness FINDINGS: Cerebral angiogram Aneurysm: No aneurysm identified. Anterior circulation: Internal carotid arteries:Atherosclerotic disease of the bilateral internal carotid siphons results in a moderate left and mild right stenosis. Ophthalmic arteries:The bilateral proximal ophthalmic arteries are patent. Anterior cerebral arteries:No flow-limiting stenosis Middle cerebral arteries:No significant stenosis or occlusion of the left middle cerebral artery. The proximal M1 right middle cerebral artery is occluded (axial image 102 series 5). Flow within the right M2-M4 branches is due to collaterals. The numbers of branches and density of contrast within the right M2-M4 relative to the contralateral side is diminished. Posterior cerebral arteries: origin of the left posterior cerebral artery. Atherosclerotic disease throughout the left posterior cerebral artery is present. Moderate stenosis of the P1 right posterior cerebral artery. Anterior communicating artery:Present. Posterior communicating arteries:Present on the left. Hypoplastic or aplastic on the right. Posterior circulation: Basilar artery:[id number] focal stenosis within the proximal basilar artery secondary to soft plaque. V3/V4 vertebral arteries:No significant flow-limiting stenosis. Dural venous sinuses:Patent. IMPRESSION: 1. 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 2. Mild to moderate focal stenosis within the proximal basilar artery. 3. Moderate left ICA stenosis. 4. 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 5. Moderate stenosis of the proximal P1 right posterior cerebral artery. Communication was initiated for the radiology call center by this radiologist through PACS at 11:37 a.m. on 11/16/2023with instructions to provide the results of this examination to a licensed caregiver. Interpreted by: Renea Shields MD Preliminary Report By: Renea Shields MD Electronically signed By Renea Shields MD Dictated Date: 11/16/2023 11:24:22 AM Prelim Date: 11/16/2023 11:37:13 AM Sign Date: 11/16/2023 11:37:13 AM Ordering Provider: [facility]05-28-2024 Note ORIGINAL EXAMINATION: CT OF THE HEAD WITHOUT CONTRAST 11/16/2023 11:09 am TECHNIQUE: CT of the head was performed without the administration of intravenous contrast. Automated exposure control, iterative reconstruction, and/or weight based adjustment of the mA/kV was utilized to reduce the radiation dose to as low as reasonably achievable. COMPARISON: 11/15/2023 HISTORY: ORDERING SYSTEM PROVIDED HISTORY: Reason for Exam: hx of stroke. new right sided weakness and facial droop worse right side weakness FINDINGS: There is no acute intracranial hemorrhage, mass effect, or abnormal extra-axial fluid collection. There is no CT evidence of acute infarct. The density in the larger dural venous sinuses is grossly normal. Early subacute left-sided lacunar infarcts in the basal ganglia and the posterior limb of the internal capsule appear unchanged. Smaller lacunar infarcts in the lentiform nucleus bilaterally are unchanged as well. No hydrocephalus. Scattered white matter hypodensities are present which are nonspecific but likely represent chronic microvascular angiopathy. Bilateral cavernous carotid artery calcifications are present. No acute bony findings. Grossly clear paranasal sinuses and mastoid air cells. IMPRESSION: No acute intracranial abnormality identified. Unchanged early subacute lacunar infarct in the left basal ganglia. Parenchymal volume loss and chronic microvascular white matter ischemic disease. I have personally reviewed the images of this examination and agree with the resident's findings and interpretation. Interpreted by: Renea Shields MD Preliminary Report By: Meng Burden Electronically signed By Renea Shields MD Dictated Date: 11/16/2023 11:10:46 AM Prelim Date: 11/16/2023 11:39:03 AM Sign Date: 11/16/2023 11:39:03 AM Ordering Provider: [facility]05-28-2024 NoteSINUS RHYTHM LEFT AXIS DEVIATION Electronic Signature: ELVIS SALAZAR MD 11/16/2023 09:12:[address] [place] [address] 05-27-2024 Note Date of Service 11/15/2023 Subjective Overnight patient complaining of slightly worsening right-sided weakness and worsening dysarthria. Seen by neurology this morning and patient now with right facial droop. Stat CT head ordered and theleft basal ganglier infarct felt to be evolving. Blood pressure 118 systolic so patient told to laydown flat and started on IV fluids. Objective Vitals and Measurements T: 36.4 C (Oral) TMIN: 36.4 C (Oral) TMAX: 37.0 C (Oral) HR: 79 (Monitored) RR: 18 BP: 118/77 SpO2:97% Intake and Output 7AM Yesterday to 7AM Today Intake and Output (Last 24 hours) Intake Oral Intake 1280.00 Output Stool Count 1.00 Urine Count 5.00 Total Summary Total Intake 1280.00 Total Output 0.00 Fluid Balance 1280.00 Physical Exam Exam: Awake and alert, in no distress, dysarthric but not aphasic CVS: regular, no murmur Lungs: clear to auscultation Abdomen: soft, non distended, no tenderness Extremities: No edema Neuro: Decreased strength right arm. Increased right facial droop, slightly worsening dysarthria Weight Dosing Weight: 94 kg (11/13/23) Medications Medications (19) Active Scheduled: (10) carvedilol 6.25 mg tablet 6.25 mg 1 tab(s), Oral, BID clopidogrel 75 mg Tablet 75 mg 1 tab(s), Oral, qDay enoxaparin 40 mg/ 0.4mL syringe 40 mg 0.4 mL, Subcutaneous, qDay insulin lispro 100 units/mL Soln (3 mL) Give 0-5 units/dose, Subcutaneous, TIDAC losartan 50 mg tablet 50 mg 1 tab(s), Oral, Daily metformin 500 mg Tablet 500 mg 1 tab(s), Oral, qDay multivitamin tablet 1 tab(s), Oral, Daily [id number] ethyl esters 1000 mg capsule 1,000 mg 1 cap(s), Oral, qDay rosuvastatin 20 mg tablet 40 mg 2 tab(s), Oral, Daily sertraline 50 mg tablet 50 mg 1 tab(s), Oral, qDay Continuous: (2) Dextrose 5% in Water 1,000 mL 1,000 mL, Intravenous Lactated Ringers 1,000 mL 1,000 mL, Intravenous, 100 mL/hr PRN: (7) acetaminophen 325 mg Tablet 650 mg 2 tab(s), Oral, q4h acetaminophen 325 mg Tablet 650 mg 2 tab(s), Oral, q4h acetaminophen 650 mg Suppository 650 mg 1 supp, Rectal, q4h dextrose 50% Solution Disp syringe 50 mL 12.5 g 25 mL, IV Push, AsDirected glucagon recombinant 1 mg 1 mg 1 mL, Intramuscular, AsDirected hydralazine 20 mg/mL (1mL) vial 5 mg 0.25 mL, IV Push, q6h ondansetron 2 mg/ 1 mL 2 mL INJ 4 mg 2 mL, IV Push, q4h Lab Results 11/14 06:40 Glucose Level: 154 H Sodium Level: 143 Potassium Level: 4.1 BUN: 27.0 H Creatinine Lvl (s): 0.84 11/13 07:27 WBC: 7.7 Hgb: 14.5 Hct: 42.8 Platelet: 163 Neutrophil %: 66.2 Glucose Level: 164 H Sodium Level: 141 Potassium Level: 4.3 BUN: 20.0 Creatinine Lvl (s): 0.86 EKG No qualifying data available. Assessment/Plan Orders: Lactated Ringers Infusion 1,000 mL(LR 1,000 mL), 1000 mL, Intravenous Telemetry Monitoring - Continue, 11/15/23 9:54:00 EDT, Constant Order Seen by neurology, greatly appreciate their help. MRI shows left basal ganglier stroke. Patient with worsening symptoms today and CT scan shows this may be evolving. Giving patient fluid to try to keep a blood pressure in case this is a relative hypotension. There is some cause to have concerned about a possible embolic source. TTE ordered with bubble study, test completed but no official read at this time. Does not seem to show an embolic source so SHRUTHI has been ordered and patient has been seen by cardiology and SHRUTHI to be done tomorrow morning. If no cause for embolic source, patient will likely just need 30-day event monitor to rule out atrial fibrillation. It should be noted that MRI does not show multiple strokes but only the single left basal ganglion stroke. Plan is platelet monotherapy and aspirin has been held. Patient now with intact swallow for pills. Continue high-dose statin. Watch blood sugars closely. Patient may need escalation of therapy by his primary care provider as outpatient. Hemoglobin A1c 9.2. Sugar control 178-210. Therapy evaluation, patient likely a candidate for inpatient rehab. Patient with increasing right lower extremity pain so venous duplex ordered by neurology. Has narcotic ordered but blood pressure needs to be higher. Digitally Signed by NACHO NELSON MD on 11/15/2023 03:05 PM [facility] [id number] Neurology Progress note Date of Service 11/15/23 Chief Complaint Worsening right-sided weakness Subjective Patient seen and examined with son Ralph and his at bedside, nursing reports overnight patientdeveloped worsening right-sided weakness, overnight event noted. Patient appears alert, orientated,following commands. Speech remains dysarthric, patient has notable right facial droop, appears to have worsened weakness of his arms/leg on the right side. Continues to have decreased sensation and right arm/right leg. Patient states he thinks this began around 1 AM and has not gotten better. He denies any complaints of vision disturbances, headache, lightheadedness, dizziness, nausea or vomiting. He reports his swallowing is unchanged today. Objective Vitals and Measurements T: 36.4 C (Oral) TMIN: 36.4 C (Oral) TMAX: 37.0 C (Oral) HR: 79 (Monitored) RR: 18 BP: 118/77 SpO2:97% Intake and Output 7AM Yesterday to 7AM Today Intake and Output (Last 24 hours) Intake Oral Intake 1280.00 Output Stool Count 0.00 Urine Count 2.00 Total Summary Total Intake 1280.00 Total Output 0.00 Fluid Balance 1280.00 Physical Exam Mental Status: Alert Orientation: oriented to person, hospital, and month Language: normal fluency, normal comprehension Speech: dysarthric (motor) (moderate) Cranial Nerves: Pupils: 2mm -> 2mm bilaterally Visual Nguyễn: full to confrontationright eye; 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 No sustained nystagmus CN V: normal light touch and temp sensation in V1, V2, V3, bilaterally. CN VII: Notable worse right face weakness CN VIII: auditory acuity intact to bedside testing Sensation: Light touch: reduced in RUE/RLE Motor: Involuntary movements: none Strength: LUE: 5/5 RUE: 2+/5 LLE: 5/5 RLE: 2+/5 Coordination: Intact on left; unable to assess on right for weakness Weight Dosing Weight: 94 kg (11/13/23) Medications Medications (19) Active Scheduled: (10) carvedilol 6.25 mg tablet 6.25 mg 1 tab(s), Oral, BID clopidogrel 75 mg Tablet 75 mg 1 tab(s), Oral, qDay enoxaparin 40 mg/ 0.4mL syringe 40 mg 0.4 mL, Subcutaneous, qDay insulin lispro 100 units/mL Soln (3 mL) Give 0-5 units/dose, Subcutaneous, TIDAC losartan 50 mg tablet 50 mg 1 tab(s), Oral, Daily metformin 500 mg Tablet 500 mg 1 tab(s), Oral, qDay multivitamin tablet 1 tab(s), Oral, Daily [id number]-5-[id number] ethyl esters 1000 mg capsule 1,000 mg 1 cap(s), Oral, qDay rosuvastatin 20 mg tablet 40 mg 2 tab(s), Oral, Daily sertraline 50 mg tablet 50 mg 1 tab(s), Oral, qDay Continuous: (2) Dextrose 5% in Water 1,000 mL 1,000 mL, Intravenous Lactated Ringers 1,000 mL 1,000 mL, Intravenous, 100 mL/hr PRN: (7) acetaminophen 325 mg Tablet 650 mg 2 tab(s), Oral, q4h acetaminophen 325 mg Tablet 650 mg 2 tab(s), Oral, q4h acetaminophen 650 mg Suppository 650 mg 1 supp, Rectal, q4h dextrose 50% Solution Disp syringe 50 mL 12.5 g 25 mL, IV Push, AsDirected glucagon recombinant 1 mg 1 mg 1 mL, Intramuscular, AsDirected hydralazine 20 mg/mL (1mL) vial 5 mg 0.25 mL, IV Push, q6h ondansetron 2 mg/ 1 mL 2 mL INJ 4 mg 2 mL, IV Push, q4h Lab Results 11/14 06:40 Glucose Level: 154 H Sodium Level: 143 Potassium Level: 4.1 BUN: 27.0 H Creatinine Lvl (s): 0.84 11/13 07:27 WBC: 7.7 Hgb: 14.5 Hct: 42.8 Platelet: 163 Neutrophil %: 66.2 Glucose Level: 164 H Sodium Level: 141 Potassium Level: 4.3 BUN: 20.0 Creatinine Lvl (s): 0.86 Imaging Results and [address] CT Head or Brain w/o Contrast Result Date: November 15, 2023 Verified By: MIKEY LYN MD CLINICAL STATEMENT: IMPRESSION: Volume loss, small vessel ischemic changes and evolving right lacunar infarct MRI Brain w/o Contrast Result Date: November 14, 2023 Verified By: MIKEY LYN MD CLINICAL STATEMENT: IMPRESSION: Acute left basal ganglia lacunar infarct. Small vessel ischemic disease, significantly greater on the right. Assessment/Plan IMPRESSION Acute stroke Recent stroke Dysphagia Right sided weakness H/o TBI Presentation likely due to long-term vascular risk factors. There are concerns for recurrent cardioembolic etiology specifically. Recommend further stroke workup given hs stroke/recurrent strokes close/age etc. Today unfortunately patient appears worse compared to when I saw him yesterday. Right-sided weakness appears worse today. CT head ordered stat which confirmed evolving left basal ganglia infarct. Discussed with hospitalist importance of preventing hypotension/recommended IV fluids and for patient to lay flat for 24 hours to help with perfusion of stroke. PLAN: -Stat CT head ordered/reviewed personally showing evolving left BG infarct -MRI of the brain ordered with and without contrast, reviewed showing acute left basal ganglia lacunar infarct. Small vessel ischemic disease, significantly greater on the right. -He was initially seen in outside hospital underwent a head CT/CTA head & neck report read unrevealing but personally reviewed thought to be showing chronic- appearing left caudate/BG stroke on review of images, possibly subacute infarction. -TTE ordered; Recommend SHRUTHI/ordered SHRUTHI given he potentially had two separate embolic events withina week. Recommend cardiology consultation for SHRUTHI. -Added lower Doppler's to rule out DVT given recurrent stroke and RLE pain complaint -Labs reviewed today. Hemoglobin A1c 9.2%, cholesterol 162, LDL 92. Lfts WNL. Homocysteine 12.5. Hypercoagulable labs pending, these will likely need to be followed up with [facility] in 1 week on an outpatient basis/PCP. Recommend consultation to diabetes management for better A1c control for stroke prevention but will defer to primary team. -Please avoid narcotics would recommend Tylenol for pain General guidelines for long-term vascular risk factor modification in the setting of a stroke: SBP goal: < 130 as tolerated Goal Total cholesterol: < LDL: 70 HbA1c: < 7u -At baseline pt was on ASA, recommended to escalate to Plavix monotherapy only, discontinue ASA. Aswould hold DAPT given he has more than 3 points on the NIHSS that are new, implying risk of hemorrhage outweighs benefit. -Continue on high dose statin. Will need a CardioNet monitor at discharge if no indication for anti-coagulation is found during admission. -Provided stroke education -Discussed plan with son/ at bedside, understood plan. Answered all questions. -GI/DVT prophylaxis per primary team -PT/OT/ST per recommendations -Fall precautions -Further medical management per medical team -Patient counseled the risks and health hazards of smoking, excessive alcohol intake, marijuana/cocaine/drug abuse and patient counseled not to smoke cigarettes, drink excessive alcohol as well as not to smoke marijuana. Patient understands the same. -Follow up with Neurology in 1 weeks as outpatient Discussed plan with collaborating physician who agrees with plan Independently spent 50 minutes with patient Will follow. Please call with questions or concerns if any. Thank you for allowing us to participate in patients care and management. All questions were answered Probable stroke etiology/risk factors and long-term prevention were discussed. Common and serious side effects of preventative medications were discussed, including risks of bleeding with antiplatelet agents. Digitally Signed by ELAYNE GOMEZ on 11/15/2023 02:07 PM Digitally Signed by ELAYNE GOMEZ on 11/15/2023 03:40 PM Digitally Signed by ELAYNE GOMEZ on 11/15/2023 03:41 PM [facility] [id number] Consult note DATE OF CONSULTATION: 11/15/2023 Consult for SHRUTHI. HISTORY OF PRESENT ILLNESS: Mr. Sotelo is a 53-year-old male who reports a remote catheterization [id number] which was unremarkable. No other cardiac history. He was transferred from with left-sidedfacial droop, right-sided weakness, slurred speech. Concern is for multiple embolic events and we were consulted for SHRUTHI. He denies any odynophagia, dysphagia, trouble swallowing. He does have reported history of congestive heart failure in the remote past. PAST MEDICAL HISTORY: Hypertension. REVIEW OF SYSTEMS: As above. PHYSICAL EXAMINATION: GENERAL: He is currently in no acute distress. VITAL SIGNS: Blood pressure is 118/77, heart rate 79. HEENT: No JVD at 30 degrees. CHEST: Lungs clear. CARDIAC: Regular rate and rhythm, normal S1, S2. ABDOMEN: Benign. EXTREMITIES: No edema. ASSESSMENT: Mr. Sotelo is here with embolic strokes. PLAN: A SHRUTHI was ordered. Risks and benefits were explained to the patient and the patient's family.He was agreeable to proceed. If his SHRUTHI is unremarkable then I would recommend a 30 day CardioNet monitor to rule out underlying atrial fibrillation. PAPITO PADILLA MD JP/ZAHEER JOB#: [id number] DICTATION ID#: [id number] Digitally Signed by PAPITO PADILLA MD on 11/16/2023 03:33 PM [facility] [id number] Note ORIGINAL HISTORY: Stroke COMPARISON: MR previous day TECHNIQUE: Routine noncontrast head CT, with sagittal and coronal reconstructions. This exam was performed according to our departmental dose optimization program, and includes the following measures where applicable: automated exposure control, adjustment of the mAs and/or kVp according to patient size and/or exam, and an iterative reconstruction algorithm. FINDINGS: The ventricles and sulci are normal in size and configuration. There are no abnormal intra or extra-axial fluid collections. There is a remote left basal ganglia lacunar infarct and there is an involving lacunar infarct in the posterior limb of the left internal capsule. There is mild irregular decreased attenuation in the cerebral white matter. The calvaria and the bones of the base of the skull are intact. IMPRESSION: Volume loss, small vessel ischemic changes and evolving right lacunar infarct Interpreted by: Mikey Lyn MD Preliminary Report By: Mikey Lyn MD Electronically signed By Mikey Lyn MD Dictated Date: 11/15/2023 11:11:57 AM Prelim Date: 11/15/2023 11:13:17 AM Sign Date: 11/15/2023 11:13:17 AM Ordering Provider: ELAYNE [facility]ONECARMENAden[facility] [id number] Note* Exam Date Time Procedure Performing Provider Status 11/15/23 9:55 AM Echocardiogram, Adul t with Bubble Study- Auth (Verified) [facility] 05-26-2024 Note ORIGINAL HISTORY: Stroke COMPARISON: No TECHNIQUE: 1. Sagittal T1-weighted images. 2. Axial T2-weighted and T2*-weighted images. 3. Axial FLAIR images. 4. Axial diffusion-weighted images with ADC map. FINDINGS: There is a 1 cm focus of restricted diffusion in the posterior limb of the left internal capsule. There is mild associated T2 hyperintensity. The ventricles and sulci are normal in size and configuration. There are no abnormal intra or extra-axial fluid collections. There are mild punctate and nodular T2 hyperintensities in the cerebral white matter, significantly greater on the right. Jensen-white matter differentiation is maintained. The orbital contents are normal in appearance. There is mild sinus disease. IMPRESSION: Acute left basal ganglia lacunar infarct. Small vessel ischemic disease, significantly greater on the right. Interpreted by: Mikey Lyn MD Preliminary Report By: Mikey Lyn MD Electronically signed By Mikey Lyn MD Dictated Date: 11/14/2023 1:19:45 PM Prelim Date: 11/14/2023 1:21:40 PM Sign Date: 11/14/2023 1:21:40 PM Ordering Provider: JENNY [facility]05-26-2024 Neurology Progress note Date of Service 11/14/23 Chief Complaint CVA Subjective Patient seen and examined with daughter at bedside. Nursing reports no acute events overnight or concerns presently. Patient is alert sitting on the side of his bed, follows commands is able to statehis name, that is at the hospital, the month and provide some details for what brought him into thehospital. Speech remains dysarthric. He denies any new complaints today. States that his weakness on his right side is comparable to yesterday that he does not feel that it is any better today. However states his swallowing is improved, he is now ordered a diet. 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 He denies anycomplaints of lightheadedness, dizziness, headache, vision disturbances, nausea or vomiting. His exam is comparable to yesterday. Objective Vitals and Measurements T: 36.6 C (Oral) TMIN: 36.6 C (Oral) TMAX: 36.8 C (Oral) HR: 83 RR: 18 BP: 141/86 SpO2: 96% Intake and Output 7AM Yesterday to 7AM Today Intake and Output (Last 24 hours) Intake Oral Intake 620.00 Output Stool Count 0.00 Urine Count 5.00 Total Summary Total Intake 620.00 Total Output 0.00 Fluid Balance 620.00 Physical Exam Mental Status: Alert Orientation: oriented to person, hospital, and month Language: normal fluency, normal comprehension Speech: dysarthric (motor) (moderate) Cranial Nerves: Pupils: 4mm -> 2mm bilaterally Visual Nguyễn: full to confrontationright eye; 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 No sustained nystagmus CN V: normal light touch and temp sensation in V1, V2, V3, bilaterally. CN VII: bilateral facial weakness, L > R CN VIII: auditory acuity intact to bedside testing Sensation: Light touch: reduced in RUE/RLE Motor: Involuntary movements: none Strength: LUE: 5/5 proximally, 5/5 distally RUE: 4+/5 proximally, 4+/5 distally LLE: 5/5 proximally, 5/5 distally RLE: 3+/5 proximally, 4/5 distally Coordination: RUE slightly dysmetric RLE confounded by weakness Weight Dosing Weight: 94 kg (11/13/23) Medications Medications (18) Active Scheduled: (10) carvedilol 6.25 mg tablet 6.25 mg 1 tab(s), Oral, BID clopidogrel 75 mg Tablet 75 mg 1 tab(s), Oral, qDay enoxaparin 40 mg/ 0.4mL syringe 40 mg 0.4 mL, Subcutaneous, qDay insulin lispro 100 units/mL Soln (3 mL) Give 0-5 units/dose, Subcutaneous, TIDAC losartan 50 mg tablet 50 mg 1 tab(s), Oral, Daily metformin 500 mg Tablet 500 mg 1 tab(s), Oral, qDay multivitamin tablet 1 tab(s), Oral, Daily [id number] ethyl esters 1000 mg capsule 1,000 mg 1 cap(s), Oral, qDay rosuvastatin 20 mg tablet 40 mg 2 tab(s), Oral, Daily sertraline 50 mg tablet 50 mg 1 tab(s), Oral, qDay Continuous: (1) Dextrose 5% in Water 1,000 mL 1,000 mL, Intravenous PRN: (7) acetaminophen 325 mg Tablet 650 mg 2 tab(s), Oral, q4h acetaminophen 325 mg Tablet 650 mg 2 tab(s), Oral, q4h acetaminophen 650 mg Suppository 650 mg 1 supp, Rectal, q4h dextrose 50% Solution Disp syringe 50 mL 12.5 g 25 mL, IV Push, AsDirected glucagon recombinant 1 mg 1 mg 1 mL, Intramuscular, AsDirected hydralazine 20 mg/mL (1mL) vial 5 mg 0.25 mL, IV Push, q6h ondansetron 2 mg/ 1 mL 2 mL INJ 4 mg 2 mL, IV Push, q4h Lab Results 11/13 07:27 WBC: 7.7 Hgb: 14.5 Hct: 42.8 Platelet: 163 Neutrophil %: 66.2 Glucose Level: 164 H Sodium Level: 141 Potassium Level: 4.3 BUN: 20.0 Creatinine Lvl (s): 0.86 Imaging Results and Diagnostics Lab Results OSH labs: WBC 11.2, hemoglobin 15.3, platelets of 207 Imaging Results and Diagnostics Outside CT/CTA reported as NAP Chronic-appearing left caudate/BG stroke on review of images. Possibly subacute Assessment/Plan IMPRESSION Stroke Dysphagia Right sided weakness Presentation likely due to long-term vascular risk factors. However, his probable TIA about a week prior does raise concern for a potential recurrent cardioembolic etiology specifically. Alternatively, he may have had a transient lacunar ischemia that has now infarcted. MRI appearance will likely help delineate. Pt is a male with multiple vascular risk factors who is on aspirin at baseline. He has a prior history of stroke several years ago that left him with left-sided visual deficits and left facial droop but typically he is able to ambulate and speak without any major difficulty. he reported about 1 week ago he had transient right-sided weakness that lasted for less than an hour before resolving. Thena couple days ago his symptoms returned and did not resolve. In addition he has had dysarthria and trouble swallowing. Symptoms have not improved and unfortunately he was not able to pass his swallowevaluation. In addition to this he has a history of traumatic brain injury and bifrontal damage. Noknown history of atrial fibrillation. He is initially seen in outside hospital underwent a head CT/CTA head & neck report read unrevealing but personally reviewed thought to be showing chronic-appearing left caudate/BG stroke on review of images, possibly subacute infarction. Awaiting further wo rkup. PLAN: -MRI of the brain ordered with and without contrast, pending -TTE ordered; Likely will need SHRUTHI given he potentially had two separate embolic events within a week. -Labs reviewed today. Hemoglobin A1c 9.2%, cholesterol 162, LDL 92. Added CMP, hypercoagulable labs. Recommend consultation to diabetes management for better A1c control for stroke prevention but will defer to primary team. General guidelines for long-term vascular risk factor modification in the setting of a stroke: SBP goal: < 130 as tolerated Goal Total cholesterol: < LDL: 70 HbA1c: < 7u -At baseline pt was on ASA, recommended to escalate to Plavix monotherapy only, discontinue ASA. Aswould hold DAPT given he has more than 3 points on the NIHSS that are new, implying risk of hemorrhage outweighs benefit. -Continue on high dose statin. Will need a CardioNet monitor at discharge if no indication for anti-coagulation is found during admission. -Provided stroke education -Discussed plan with daughter Rosa and patient, understood plan. Answered all questions. -GI/DVT prophylaxis per primary team -PT/OT/ST per recommendations -Fall precautions -Further medical management per medical team -Patient counseled the risks and health hazards of smoking, excessive alcohol intake, marijuana/cocaine/drug abuse and patient counseled not to smoke cigarettes, drink excessive alcohol as well as not to smoke marijuana. Patient understands the same. -Follow up with Neurology in 4-6 weeks as outpatient Discussed plan with collaborating physician who agrees with plan Independently spent 50 minutes with patient Will peripherally follow. Please call with questions or concerns if any. Thank you for allowing us to participate in patients care and management. All questions were answered Probable stroke etiology/risk factors and long-term prevention were discussed. Common and serious side effects of preventative medications were discussed, including risks of bleeding with antiplatelet agents. High risk acute neurologic condition due to high chance of recurrent stroke/TIA without intervention. Multiple other comorbidities present as well, including prior stroke, recent TIA. Digitally Signed by ELAYNE GOMEZ on 11/14/2023 12:49 PM [facility] [id number] Evaluation + Plan noteExtracted from: Title:History and Physical Author:DAVIN RODRIGUEZ MD Date:11/13/23 Orders: acetaminophen(Tylenol), 650 mg= 2 tab(s), Oral, q4h, PRN acetaminophen(Tylenol), 650 mg= 1 supp, Rectal, q4h, PRN acetaminophen(Tylenol), 650 mg= 2 tab(s), Oral, q4h, PRN aspirin, 81 mg, Oral, qDay carvedilol(Coreg), 6.25 mg= 1 tab(s), Oral, BID clopidogrel(Plavix), 75 mg= 1 tab(s), Oral, qDay Dextrose 5% in Water intravenous soln 1,000 mL(D5W 1,000 mL), 1000 mL, Intravenous enoxaparin(Lovenox), 40 mg= 0.4 mL, Subcutaneous, qDay furosemide, 20 mg= 1 tab(s), Oral, qDay glucagon(GlucaGen), 1 mg= 1 mL, Intramuscular, AsDirected, PRN glucose(Dextrose 50% IV Push), 12.5 gram(s)= 25 mL, IV Push, AsDirected, PRN glucose(Dextrose), 12.5 gram(s)= 25 mL, IV Push, AsDirected, PRN insulin lispro (HumaLOG)(HumaLOG 100 units/mL subcutaneous solution), Give 0-5 units/dose, Subcutaneous, TIDAC losartan, 50 mg= 1 tab(s), Oral, Daily metFORMIN(metFORMIN 500 mg oral tablet (IR)), 500 mg= 1 tab(s), Oral, qDay multivitamin(Multivitamin), 1 tab(s), Oral, Daily omega-3 polyunsaturated fatty acids(Fish Oil 1000 mg oral capsule), 1000 mg= 1 cap(s), Oral, qDay ondansetron(Zofran), 4 mg= 2 mL, IV Push, q4h, PRN rosuvastatin, 40 mg= 2 tab(s), Oral, Daily sertraline, 50 mg= 1 tab(s), Oral, qDay A1C Hemoglobin, 11/13/23 13:08:00 EDT, URGENT (collect within 2 hrs), Blood, Once, Stop date 11/13/23 13:10:00 EDT Admit to Inpatient, 11/13/23 13:09:00 EDT, Level of Care: Stepdown with monitor, Reason for Admission: See History & Physical, Expected Length of Stay: More Than Two Midnights, I certify that hospital inpatient services are reasonable and necessary, and appropriately pro... Citizen Of [place] Diabetic Association Diet(ADA Diet), 11/13/23 13:08:00 EDT, Start Meal: Next meal, 1800 kcal, Constant Order, N/A, N/A Basic Metabolic Panel(BMP), 11/14/23 5:00:00 EDT, Next AM Draw (one day only), Blood, Once, Stop date 11/14/23 5:00:00 EDT Bladder Scan, 11/13/23 13:08:00 EDT, q8h (2p, 10p, 6a), PRN Order, Complete if patient is unable to void Blood Glucose Call Parameter, 11/13/23 13:08:00 EDT, call provider if patient's blood glucose is <70mg/dL, Constant order Blood Glucose Call Parameter, 11/13/23 13:08:00 EDT, If patient is NPO for x-ray or surgery and hypoglycemic, call physician for further orders, Constant order Blood Glucose Call Parameter, 11/13/23 13:13:00 EDT, Notify physician of all hypoglycemic reactions, Constant order Blood Glucose Call Parameter, 11/13/23 13:13:00 EDT, If patient is unresponsive whose blood sugar is less than 60 mg/dL, Constant order Blood Glucose Call Parameter, 11/13/23 13:13:00 EDT, If patient is NPO for x-ray or surgery and hypoglycemic, call physician for further orders, Constant order Blood Glucose Monitoring Bedside PRN, 11/13/23 13:08:00 EDT, PRN Order, For signs/symptoms of hypoglycemia Blood Glucose Monitoring Bedside PRN(Blood Sugar, Fingerstick PRN), 11/13/23 13:13:00 EDT, PRN Order, For signs/symptoms of hypoglycemia Blood Glucose Monitoring Bedside PRN(Blood Sugar, Fingerstick PRN), 11/13/23 13:13:00 EDT, PRN Order, When hypoglycemic symptoms are alleviated, recheck in 30 minutes Blood Glucose Monitoring POC, 11/13/23 13:12:00 EDT, achs Call Parameters, 11/13/23 13:08:00 EDT, Call Provider if patient fails the bedside swallow evaluation., Constant order Code Status, 11/13/23 13:09:00 EDT, Full Code, Constant Order Communication Order (continuous), 11/13/23 13:08:00 EDT, Call neurologist for change in neurological assessment and/or an increase in the NIH Stroke Scale score of 4 or greater., Constant order Communication Order (continuous), 11/13/23 13:08:00 EDT, Stat EKG will be obtained in the setting of new, ongoing or worsening chest discomfort/acute coronary syndrome symptoms in all nursing units and/or rhythm change in all monitored units., Constant order Complete Blood Count(CBC), 11/14/23 5:00:00 EDT, Next AM Draw (one day only), Blood, Once, Stop date 11/14/23 5:00:00 EDT Consult to Occupational Therapy, 11/13/23 13:08:00 EDT, Once, Neurologic deficit, evaluate and treat Consult to Physical Therapy, 11/13/23 13:08:00 EDT, Once, Neurologic deficits, evaluate and treat Consult to Physician, 11/13/23 13:08:00 EDT, FEDERICO MULLEN MD, Routine, cva Consult to Rehabilitation, 11/13/23 13:08:00 EDT, Inpatient Rehabilitation Unit Evaluation Consult to Speech Therapy, 11/13/23 12:10:00 EDT, Reason: Swallowing, Once Consult to Speech Therapy, 11/13/23 13:08:00 EDT, Evaluation & treatment Reason: Speech, Once Echocardiogram, Adult with Bubble Study, 11/13/23 13:08:00 EDT, Routine, cva, Other *specify in special instructions, Physician to Read: [facility], Echo Contrast: Use if indicated and not contraindicated, Bed Nurse and Monitor, None Yes, No, Full code, 94 kg, Stroke, ME4N, 0... Follow Clinical Pathway, 11/13/23 13:08:00 EDT, Constant order, Ischemic Stroke Hypoglycemic Protocol, 11/13/23 13:13:00 EDT, Constant Order Intake and Output, 11/13/23 13:08:00 EDT, q8h (2p, 10p, 6a) Intake and Output Call Parameters, 11/13/23 13:08:00 EDT, Notify physician if patient unable to void or has a distended bladder, Constant order Ischemic Stroke Education, 11/13/23 13:08:00 EDT, qAM, Give Understanding Stroke patient education booklet to patient IV Catheter Insertion/Care(Peripheral IV Insertion/Care), 11/13/23 13:08:00 EDT, IV Care: q4h, Rotate when clinically indicated & q7day drsg change Lipid Profile, 11/14/23 5:00:00 EDT, Next AM Draw (one day only), Blood, Once, Stop date 11/14/23 5:00:00 EDT MRI Brain w/o Contrast, 11/13/23 13:08:00 EDT, 11/13/23 13:08:00 EDT, Routine, Stroke, Full code, Bed Nurse and Monitor, Isolation: None, IV: Yes, Oxygen: No, Diabetes: Yes, Able to Sign Consent: Yes, : N/A, with Diffusion, Wt k, Prior Valve Replacement: No, ME4N Neurological Check, 11/13/23 13:08:00 EDT, q4hr NIH Stroke Scale, 11/13/23 13:08:00 EDT, q12hr, 3 day(s), 11/16/23 2:00:00 EDT, complete NIH Stroke Scale upon admission & discharge NPO, 11/13/23 13:08:00 EDT, Constant Order, Strict, Special Instructions: until swallowing screen completed & patient's ability to swallow established. Prn Adapter, 11/13/23 13:08:00 EDT, Constant Order Stroke Quality Measures, 11/13/23 13:08:00 EDT, 11/13/23 13:08:00 EDT Telemetry Monitoring, 11/13/23 13:: EDT, Constant order Vital Signs, 11/13/23 13:08:00 EDT, q4hr Vital Signs Call Parameters, 11/13/23 13:08:00 EDT, Temp Range: > 38.5 degrees Celsius, BP Range SBP >/= 220mmHg, DBP >/= 110 mmHg, Constant Order Diagnostic Tests Pending * Beta-2 Glycoprotein I Ab,G/M 11/14/23 * [facility] [place] Lab Send out (Blood Specimens) 11/14/23 [facility] 05-25-2024 Neurology Consult note Date of Service November 13, 2023 Reason for Consultation Stroke Referring Physician Dr. Rodriguez History of Present Illness 53-year-old male with multiple vascular risk factors who is on aspirin at baseline. He has a prior history of stroke several years ago that left him with left-sided visual deficits and left facial droop but typically he is able to ambulate and speak without any major difficulty. About 1 week ago hehad transient right-sided weakness that lasted for less than an hour before resolving. Then a couple days ago his symptoms returned and did not resolve. In addition he has had dysarthria and trouble swallowing. Symptoms have not improved and unfortunately he was not able to pass his swallow evaluation. In addition to this he has a history of traumatic brain injury and bifrontal damage. No known history of atrial fibrillation. He is initially seen in outside hospital underwent a head CT and CTA head and neck which were reported to be unrevealing. He was transferred to [place] for further care. Review of Systems Aside from what is mentioned in the HPI, there were no other pertinent positives in the patient's neurologic review of systems. Physical Exam Vitals and Measurements T: 36.9 C (Oral) HR: 89 (Apical) RR: 18 BP: 148/108 SpO2: 97% HT: 160 cm WT: 94 kg BMI: 36.72 Weight Dosing Weight: 94 kg (11/13/23) Neurologic Exam Mental Status: Alert Orientation: oriented to person, hospital, and month Language: normal fluency, normal comprehension Speech: dysarthric (motor) (moderate) Cranial Nerves: Pupils: 4mm -> 2mm bilaterally Visual Nguyễn: full to confrontation bilaterally Fundus: not well visualized as the patient wasn't tolerating the light and having trouble fixating CN III, IV, : EOMI. No sustained nystagmus CN V: normal light touch and temp sensation in V1, V2, V3, bilaterally. CN VII: bilateral facial weakness, L > R CN VIII: auditory acuity intact to bedside testing Sensation: Light touch: reduced in RLE Motor: Involuntary movements: none Strength: LUE: 5/5 proximally, 5/5 distally RUE: 4+/5 proximally, 4+/5 distally LLE: 5/5 proximally, 5/5 distally RLE: 3/5 proximally, 4/5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 Alcohol and Drug Abuse Patient Records regulations: The Federal rules restrict any use of the information to criminally investigate or prosecute any alcohol or drug abuse patient.[facility] HospitalIn the event this information is protected by the Federal Confidentiality of Alcohol and Drug Abuse Patient Records regulations: The Federal rules restrict any use of the information to criminally investigate or prosecute any alcohol or drug abuse patient.[facility] HospitalIn the event this information is protected by the Federal Confidentiality of Alcohol and Drug Abuse Patient Records regulations: The Federal rules restrict any use of the information to criminally investigate or prosecute any alcohol or drug abuse patient.[facility] HospitalIn the event this information is protected by the Federal Confidentiality of Alcohol and Drug Abuse Patient Records regulations: The Federal rules restrict any use of the information to criminally investigate or prosecute any alcohol or drug abuse patient.[facility] HospitalIn the event this information is protected by the Federal Confidentiality of Alcohol and Drug Abuse Patient Records regulations: The Federal rules restrict any use of the information to criminally investigate or prosecute any alcohol or drug abuse patient.[facility] HospitalIn the event this information is protected by the Federal Confidentiality of Alcohol and Drug Abuse Patient Records regulations: The Federal rules restrict any use of the information to criminally investigate or prosecute any alcohol or drug abuse patient.[facility] HospitalIn the event this information is protected by the Federal Confidentiality of Alcohol and Drug Abuse Patient Records regulations: The Federal rules restrict any use of the information to criminally investigate or prosecute any alcohol or drug abuse patient.[facility] HospitalIn the event this information is protected by the Federal Confidentiality of Alcohol and Drug Abuse Patient Records regulations: The Federal rules restrict any use of the information to criminally investigate or prosecute any alcohol or drug abuse patient.[facility] HospitalIn the event this information is protected by the Federal Confidentiality of Alcohol and Drug Abuse Patient Records regulations: The Federal rules restrict any use of the information to criminally investigate or prosecute any alcohol or drug abuse patient.[facility] HospitalIn the event this information is protected by the Federal Confidentiality of Alcohol and Drug Abuse Patient Records regulations: The Federal rules restrict any use of the information to criminally investigate or prosecute any alcohol or drug abuse patient.[facility] HospitalIn the event this information is protected by the Federal Confidentiality of Alcohol and Drug Abuse Patient Records regulations: The Federal rules restrict any use of the information to criminally investigate or prosecute any alcohol or drug abuse patient.[facility] HospitalIn the event this information is protected by the Federal Confidentiality of Alcohol and Drug Abuse Patient Records regulations: The Federal rules restrict any use of the information to criminally investigate or prosecute any alcohol or drug abuse patient.[facility] HospitalIn the event this information is protected by the Federal Confidentiality of Alcohol and Drug Abuse Patient Records regulations: The Federal rules restrict any use of the information to criminally investigate or prosecute any alcohol or drug abuse patient.[facility] HospitalIn the event this information is protected by the Federal Confidentiality of Alcohol and Drug Abuse Patient Records regulations: The Federal rules restrict any use of the information to criminally investigate or prosecute any alcohol or drug abuse patient.[facility] HospitalIn the event this information is protected by the Federal Confidentiality of Alcohol and Drug Abuse Patient Records regulations: The Federal rules restrict any use of the information to criminally investigate or prosecute any alcohol or drug abuse patient.[facility] HospitalIn the event this information is protected by the Federal Confidentiality of Alcohol and Drug Abuse Patient Records regulations: The Federal rules restrict any use of the information to criminally investigate or prosecute any alcohol or drug abuse patient.[facility] HospitalIn the event this information is protected by the Federal Confidentiality of Alcohol and Drug Abuse Patient Records regulations: The Federal rules restrict any use of the information to criminally investigate or prosecute any alcohol or drug abuse patient.[facility] HospitalIn the event this information is protected by the Federal Confidentiality of Alcohol and Drug Abuse Patient Records regulations: The Federal rules restrict any use of the information to criminally investigate or prosecute any alcohol or drug abuse patient.[facility] HospitalIn the event this information is protected by the Federal Confidentiality of Alcohol and Drug Abuse Patient Records regulations: The Federal rules restrict any use of the information to criminally investigate or prosecute any alcohol or drug abuse patient.[facility] HospitalIn the event this information is protected by the Federal Confidentiality of Alcohol and Drug Abuse Patient Records regulations: The Federal rules restrict any use of the information to criminally investigate or prosecute any alcohol or drug abuse patient.[facility] HospitalIn the event this information is protected by the Federal Confidentiality of Alcohol and Drug Abuse Patient Records regulations: The Federal rules restrict any use of the information to criminally investigate or prosecute any alcohol or drug abuse patient.[facility] HospitalIn the event this information is protected by the Federal Confidentiality of Alcohol and Drug Abuse Patient Records regulations: The Federal rules restrict any use of the information to criminally investigate or prosecute any alcohol or drug abuse patient.[facility] HospitalIn the event this information is protected by the Federal Confidentiality of Alcohol and Drug Abuse Patient Records regulations: The Federal rules restrict any use of the information to criminally investigate or prosecute any alcohol or drug abuse patient.[facility] HospitalIn the event this information is protected by the Federal Confidentiality of Alcohol and Drug Abuse Patient Records regulations: The Federal rules restrict any use of the information to criminally investigate or prosecute any alcohol or drug abuse patient.[facility] HospitalIn the event this information is protected by the Federal Confidentiality of Alcohol and Drug Abuse Patient Records regulations: The Federal rules restrict any use of the information to criminally investigate or prosecute any alcohol or drug abuse patient.[facility] HospitalIn the event this information is protected by the Federal Confidentiality of Alcohol and Drug Abuse Patient Records regulations: The Federal rules restrict any use of the information to criminally investigate or prosecute any alcohol or drug abuse patient.[facility] HospitalIn the event this information is protected by the Federal Confidentiality of Alcohol and Drug Abuse Patient Records regulations: The Federal rules restrict any use of the information to criminally investigate or prosecute any alcohol or drug abuse patient.[facility] HospitalIn the event this information is protected by the Federal Confidentiality of Alcohol and Drug Abuse Patient Records regulations: The Federal rules restrict any use of the information to criminally investigate or prosecute any alcohol or drug abuse patient.[facility] HospitalIn the event this information is protected by the Federal Confidentiality of Alcohol and Drug Abuse Patient Records regulations: The Federal rules restrict any use of the information to criminally investigate or prosecute any alcohol or drug abuse patient.[facility] HospitalIn the event this information is protected by the Federal Confidentiality of Alcohol and Drug Abuse Patient Records regulations: The Federal rules restrict any use of the information to criminally investigate or prosecute any alcohol or drug abuse patient.[facility] HospitalIn the event this information is protected by the Federal Confidentiality of Alcohol and Drug Abuse Patient Records regulations: The Federal rules restrict any use of the information to criminally investigate or prosecute any alcohol or drug abuse patient.[facility] HospitalIn the event this information is protected by the Federal Confidentiality of Alcohol and Drug Abuse Patient Records regulations: The Federal rules restrict any use of the information to criminally investigate or prosecute any alcohol or drug abuse patient.[facility] FOR RECORDS PERTAINING TO PATIENTS WHO ARE OR HAVE BEEN ENROLLED IN A CHEMICAL DEPENDENCY/SUBSTANCEABUSE PROGRAM, SOME INFORMATION MAY BE OMITTED. This clinical summary was aggregated from multiple sources. Caution should be exercised in using it in the provision of clinical care. This summary normalizes information from multiple sources, and as a consequence, information in this document may materially change the coding, format and clinical context of patient data. In addition, data may be omitted in some cases. CLINICAL DECISIONS SHOULD BE BASED ON THE PRIMARY CLINICAL RECORDS. [facility] [employer] [facility]. provides no warranty or guarantee of the accuracy or completeness of information in this document.
[2025-06-02 11:58] LABS: Hematocrit 41.6 % (40-54); Hemoglobin 13.7 g/dL (13.0-16.5); Immature Granulocytes Count 0.020 X10^3/uL (0.0-0.0); Mean Corp Hgb Conc 32.9 g/dL (32-36); Mean Corpuscular Volume 87.4 fL (80-94); Mean Platelet Vol. 10.8 fl (6.2-12.0); NRBC Flagged by Analyzer 0 % (0-5); Platelet Count 148 K/mm3 (150-450); RBC Distribution Width CV 12.4 % (11.6-14.6); RBC Distribution Width SD 40.2 fl (35.1-43.9); Red Blood Count 4.76 M/mm3 (4.6-6.2); White Blood Count 8.1 K/mm3 (4.4-11.0)
[2025-06-02 12:19] LABS: AST(SGOT) 53 U/L (<=37); Alanine Aminotransfer ALT/SGPT 102 U/L (<=46); Albumin, Serum 4.2 g/dL (3.5-5.0); Alkaline Phosphatase 117 U/L (40-129); Anion Gap 10 (5-15); BUN 42 mg/dL (4-19); BUN/Creat Ratio 38.4 RATIO (10-20); Calcium,Total 10.1 mg/dL (7.6-11.0); Carbon Dioxide 28.3 mmol/L (21.0-32.0); Chloride 101 mmol/L (98-108); Cholesterol 120 mg/dL (<=200); Globulin 3.2 g/dL (2.2-4.2); Glucose 145 mg/dL (70-99); Low Density Lipoprotein Calc. 49 mg/dL; Potassium 4.1 mmol/L (3.3-5.1); Triglycerides 238 mg/dL; Very Low Density Lipoprotein 48 mg/dL (5-40); cholesterol:hdl ratio screen 3.56
== END | disposition home or self-care (01) ==
LOC: LAB 11:16
PROVIDERS: PCP Internal Medicine; Referring Provider Physician Assistant; Visit Provider Physician Assistant
DX: I10 Essential (primary) hypertension (principal); E78.5 Hyperlipidemia, unspecified
CPT/HCPCS: 36415; 80053; 80061; 85025